=== PATIENT | female | born 1930 | race Caucasian/White ===

== ENCOUNTER 2018-02-15 00:45 | Inpatient (IN) | payer MEDICARE, OTHER ==
[~2018-02-15] VITALS: Ht 157.5 cm; Wt 57.4 kg
[~2018-02-15 00:45] MED LIST: ACETAMIN-CODE12.5 ML PO; ALENDRONATE SOD70 MG PO; CALCIUM CARBON200 MG PO; CALCIUM500 MG PO; CALCIUM600 MG PO; CARVEDILOL6.25 MG PO; CETIRIZINE HCL10 MG PO; CIPRO500 MG PO; CIPROFLOXACIN250 MG PO; CITALOPRAM HBR10 MG PO; CITALOPRAM HBR20 MG NG; CLINDAMYCIN HC300 MG PO; CLOBETASOL PROP15 GM TOP; CLONAZEPAM0.5 MG PO; CLONAZEPAM1 MG PO; COREG3.125 MG NG; COREG3.125 MG PO; CREON DR 12,001 EACH NG; CREON DR 12,001 EACH PO; DIFLUCAN150 MG PO; DOC-Q-LACE50 MG/5 ML NG; FLAGYL500 MG PO; HYDROCODON-ACE1 EA10 PO; IPRAT-ALBUT 0.5-3 ML INH; LEVOTHYROXINE125 MCG NG; LEVOTHYROXINE125 MCG PO; LISINOPRIL2.5 MG PO; LISINOPRIL5 MG PO; LORAZEPAM INT2 MG/ML SL; LORTAB 5-325 M1 EACH PO; MAG-OXIDE400 MG PO; MAPAP500 M1 PO; MECLIZINE HCL25 MG PO; METOPROLOL TART50 MG PO; MIRTAZAPINE15 MG; MIRTAZAPINE15 MG PO; MIRTAZAPINE7.5 MG PO; MOTION SICKNESS25 M2 PO; MULTIVITAMINS1 EAC7 PO; NORCO 5-325 TA1 EACH PO; OMEPRAZOLE NG; OMEPRAZOLE20 MG PO; ONDANSETRON ODT4 MG SL; PHENADOZ12.5 MG PR; PHOS-NAK PACKE1 EACH PO; PROMACTA25 MG NG; PROMETHAZINE HC25 M1 PO; PROMETHAZINE12.5 M1 PO; REGLAN10 MG PO; SIMVASTATIN20 MG PO; TRANSDERM-SCOP1 EA TD; VICODIN 5-3001 EACH PO; VITAMIN D31000 UNI1 PO; VITAMIN D32000 UNIT PO; ZOCOR20 MG NG; ZOFRAN ODT4 MG PO; ZOFRAN4 MG PO
--- NOTE | 2018-02-15 01:54 | NUR ---
RECEIVED PT TO FLOOR VIA STRETCHER. PT APPEARS TO BE DROWSY AT THIS TIME. DAUGHTER AND SON IN LAW AT BEDSIDE. REPORTS NO PAIN AT THIS TIME. ORIENTED TO ROOM. TRANSFERED W/ 5 PPL SLIDE.
--- NOTE | 2018-02-15 04:57 | NUR ---
PT APPEARED TO BE DRY HEAVING WHEN THIS NURSE ENTERED THE ROOM. PT REPORTED FEELING LIKE SHE WAS GOING TO VOMIT. HOB ELEVATED, ZOFRAN GIVEN, EMISIS BAG PROVIDED.
--- NOTE | 2018-02-15 06:04 | NUR ---
bed alarm alerted staff to pt bending over dry heaving. hob was elevated at the time. emisis bag with pt. reglan prn administered. will cont to monitor.
--- NOTE | 2018-02-15 06:24 | NUR ---
PT ARRIVED TO FLOOR AROUND 0200. NAUSEA AND DRY HEAVING ALL NIGHT. ZOFRAN GIVEN AT 0500 AND REGLAN GIVEN AT 0600. ATIVAN GIVEN IN ED AROUNF 0130. PT ADMITTED FOR OBSERVATION. NPO AT THIS TIME. NS INFUSING AT 100ML/HR.
--- NOTE | 2018-02-15 06:35 | NUR ---
PT REPORTS NAUSEOUS FEELING HAS SUBSIDED. HOB ELEVATED. COLD WASH CLOTH ON NECK. CALL LIGHT IN REACH.
--- NOTE | 2018-02-15 08:25 | NUR ---
REPORT RECEIVED FROM HALLE SPARROW, PATIENT IS SITTING UP IN BED WITH DRY HEAVES, NO EMESIS CURRENTLY. SHE HAS NO AVAILABLE NAUSEA MEDICATION AT THIS TIME. MD UPDATED ON CONDITION AND NO URINE OUTPUT FOR THE PAST 4 HOURS.
--- NOTE | 2018-02-15 09:05 | NUR ---
doctor Jorje in the room to see the patient, IV bolus of LR started at this time and patient given 12.5mg of iv phenergan for continued dry heaves. patient still has not voided and has no emesis. stat ct scan ordered and xray notified of order at this time.
--- NOTE | 2018-02-15 09:29 | NUR ---
DOCTOR JASBIR NOTIFIED OF PATIENT'S BLOOD PRESSURE AT THIS TIME.
--- NOTE | 2018-02-15 09:40 | NUR ---
PATIENT TAKEN TO CT SCAN, SHE IS FLAILING IN BED BUT HAS NO C/O ABDOMINAL PAIN ONLY C/O NAUSEA WITH DRY HEAVES. ATIVAN 0.5MG PUSHED IV AT THIS TIME
[2018-02-15] MEDS ORDERED: DORZOLAMIDE HCL10 ML OU (09:44)
[2018-02-15] MEDS ORDERED: ONDANSETRON HCL8 MG PO (09:49)
--- NOTE | 2018-02-15 10:58 | NUR ---
#22 STARTED IN THE LEFT FOREARM
--- NOTE | 2018-02-15 12:11 | NUR ---
new bag of iv fluid hung and running, rate increased to 125mls/hr patient has no urge to void md notified and bladder scan done, 270 mls in the bladder at this time
--- NOTE | 2018-02-15 12:25 | NUR ---
ATTEMPTED TO UPDATE MD ON BRUISING FOUND IN PATIENT'S GROIN AREA, PATIENT WAS INCONTENENT OF URINE, LINEN AND ATTEND CHANGED AT THIS TIME.
--- NOTE | 2018-02-15 12:25 | NUR ---
Nurse Trudy asked me to bladder scan the pt, pt was bladder scanned, residule was reported to nurse. pt was incontinent of urine, RADHA Sanon assisted me with a complete bed change and changed the pt's attends. I noticed some bruising around the pt's groin area and notified nurse. pt is resting safely in bed with call light in reach.
--- NOTE | 2018-02-15 12:57 | NUR ---
messer cathater placed at this time, patient's vaginal area very bruised, swollen and painful with insertion of cathater, Doctor Jorje notified. 300mls of urine out with cathater insertion. Patient asked if she feels safe at home and if she knew how she received the bruising to the vaginal area. patient was not sure but stated maybe last night in the er. She verbalized feeling safe at home and said she lived with her daughter and her son in law.
--- NOTE | 2018-02-15 15:10 | NUR ---
PATIENT UPDATED ON RESULTS FROM CT SCAN AND IV ABX STARTED AT THIS TIME. HOB ELEVATED AND SHE REMAINS NPO AT THIS TIME
--- NOTE | 2018-02-15 15:15 | NUR ---
4MG OF ZOFRAN GIVEN IV AT THIS TIME FOR C/O NAUSEA.
--- NOTE | 2018-02-15 16:22 | NUR ---
PATIENT PUT HERSELF BACK TO BED INSTEAD OF CALLING AFTER HAVING A BM. PATIENT BM WAS LARGE AND FORMED. CHUX CHANGED AND PATIENT MOVED UP IN BED.
--- NOTE | 2018-02-15 18:37 | NUR ---
PATIENT GIVEN 12.5MG OF PHENERGAN AT THIS TIME FOR C/O NAUSEA WITH DRY HEAVES.
--- NOTE | 2018-02-15 19:00 | NUR ---
BEDSIDE REPORT RECEIVED FROM OFFGOING RN. PT RESTING IN BED AWAKE. PT DENIES NEEDS AT THIS TIME. CALL LIGHT WITHIN REACH.
--- NOTE | 2018-02-15 19:20 | NUR ---
PATIENT HAS BEEN SLEEPING ON AND OFF TODAY. FEELING NAUSEA.
--- NOTE | 2018-02-15 20:10 | NUR ---
PT ATTEMPTING GET OUT OF BED. STATES THAT SHE NEEDS TO USE THE BATHROOM. PT ASSISTED TO BSC WITH 2PA. PT HAD SMEAR BM, ASSISTED BACK TO BED. PT REPORTS NAUSEA. EXPERIENCING DRY HEAVES WHILE GETTING UP TO BSC AND ONCE BACK TO BED. PT DENIES PAIN OR SOB. BED ALARM ACTIVATED DUE TO IMPULSITIVITY. PT DENIES NEEDS. PERSONAL BELONGING ARE WITHIN REACH IS CALL LIGHT. CALL LIGHT EDUCATION REINFORCED.
--- NOTE | 2018-02-15 21:01 | NUR ---
MOVED TO ROOM 11 A SAFETY PRECAUTIONS PT IS CONFUSED, HAS TRIED TO GET OUT OF BED 3X. BED ALARM ON. HIGH FALL RISK PRECAUTIONS IN PLACE. PT HAS F/C IN PLACE. UP TO BSC X2 EARLIER WITH 3 PEOPLE ASSIST.
--- NOTE | 2018-02-15 22:29 | NUR ---
MEDICATED WITH ZOFRAN 4MG IV C/O DRY HEAVING. DAUGHTER IN ROOM
--- NOTE | 2018-02-15 22:52 | NUR ---
PT RESTING IN BED WITH DAUGHTER PRESENT AT BEDSIDE. PT ALTERNATES BETWEEN RESTING WITH EYES CLOSED AND DRY HEAVES. PT'S DAUGHTER REQUESTS ANTIEMETIC MEDICATION BE ADMINISTERED. PRN ZOFRAN ADMINISTERED. PT DENIES FURTHER NEEDS AT THIS TIME. CALL LIGHT WITHIN REACH.
--- NOTE | 2018-02-15 23:55 | NUR ---
PT FOUND BY ANOTHER NURSE TO BE PULLING ON HER CATHETER, ATTEMPTING TO GET OUT OF BED. PT STATES THAT SHE WANTED "TO GO TO THE BEDROOM TO SLEEP", POINTS TOWARDS BATHROOM. PT REORIENTED TO SURROUNDINGS. ASSISTED TO REPLACE BLANKETS. PT DENIES OTHER NEEDS. CALL LIGHT WITHIN REACH. ROOM IN VIEW OF NURSES STATION WITH BED ALARM ACTIVATED.
--- NOTE | 2018-02-16 01:40 | NUR ---
PT RESTING IN BED AWAKE, WATCHING TV. PT ASSESSMENT COMPLETE. PT DENIES PAIN, SOB. PT CONTINUES TO REPORT NAUSEA, OCASSIONAL DRY HEAVES/VOMITTING. PT ORIENTED TO SELF ONLY DURING ASSESSMENT. PT DENIES NEEDS AT THIS TIME. CALL LIGHT WITHIN REACH. ROOM WITHIN VIEW OF NURSES STATION WITH CURTAIN OPEN, BED ALARM ACTIVATED.
--- NOTE | 2018-02-16 04:27 | NUR ---
PT RESTING IN BED WITH EYES CLOSED. RESPIRATIONS EVEN AND UNLABORED. PT APPEARS TO BE SLEEPING. CALL LIGHT WITHIN REACH. BED ALARM ACTIVATED, ROOM WITHIN VIEW OF NURSES STATION.
--- NOTE | 2018-02-16 05:11 | NUR ---
PT SLEPT OFF AND ON DURING SHIFT. PT IMPULSIVE, ATTEMPTING TO GET OUT OF BED UNASSISTED EARLY IN SHIFT, PT MOVED CLOSER TO NURSES STATION. NAUSEA, DRY HEAVES, VOMITTING CONTINUE OFF AND ON. ZOFRAN X 1 THIS SHIFT. MENDOZA CATH DRAINING CLEAR YELLOW URINE. NPO. L5 @ 125. 2-3 PA TO BSC.
--- NOTE | 2018-02-16 06:18 | NUR ---
PT SITTING UP IN BED HAVING DRY HEAVES. PRN ZOFRAN TO BE ADMINISTERED.
--- NOTE | 2018-02-16 09:20 | NUR ---
PT AWAKE IN BED. ORIENTED TO SELF ONLY, FOLLOWS COMMANDS APPROPRIATELY. MENDOZA IN PLACE DRAINING WELL. IV INFUSING WNL.
--- NOTE | 2018-02-16 09:35 | NUR ---
PT SITTING UP IN BED DRY HEAVING. MEDICATED WITH REGLAN. GIVEN WARM BLANKET AND PT RESTING WITH EYES CLOSED.
--- NOTE | 2018-02-16 10:10 | NUR ---
PATIENT IS SLEEPING RIGHT NOW.
--- NOTE | 2018-02-16 12:00 | NUR ---
KELLY HSIEH'Jaycob PER ORDERS. PT ASMITA VIERA. ATTENDS IN PLACE
--- NOTE | 2018-02-16 12:10 | NUR ---
PT CONT TO RETCH AND DRY HEAVE FREQUENTLY. MEDICATED WITH IV PHERNERGAN. PT AWAKE IN BED. BED ALARM ON.
--- NOTE | 2018-02-16 13:00 | NUR ---
PT RESTING IN BED, EYES CLOSED, RESP EVEN AND UNLABORED.
--- NOTE | 2018-02-16 16:04 | NUR ---
PT RESTING IN BED, EYES CLOSED, RESP EVEN AND UNLABORED.
--- NOTE | 2018-02-16 17:55 | NUR ---
PT 1PA WITH WALKER TO [facility], VOIDED 250ML. ASSISTED BACK TO BED. PT REFUSING CLEARS, STATES "IT JUST DOESN'T SOUND GOOD." IV FLUIDS INFUSING. BED ALARM ON.
--- NOTE | 2018-02-16 19:00 | NUR ---
BEDSIDE REPORT RECEIVED FROM OFFGOING RN. PT RESTING IN BED, APPEARS TO BE SLEEPING. DOES NOT WAKE WHILE WASTEWATER SUPERVISOR AND OTHER RN IN DOORWAY. CALL LIGHT WITHIN REACH, ROOM WITHIN VIEW OF NURSES STATION.
--- NOTE | 2018-02-16 20:05 | NUR ---
CHARGE NURSE ROUNDING NOTE: IN BED, RESTING, NO S/O PAIN OR SOB. IVF INGUSING, CALL LIGHT AND FLUIDS WITHING HANDS REACH
--- NOTE | 2018-02-16 21:31 | NUR ---
PT'S DAUGHTER, HARRISON, CALLED TO CHECK ON HER MOM. SHE STATES THAT SHE WILL NOT BE IN TO SEE PT THIS EVENING. DISCUSSED PT'S BASELINE ORIENTATION/ MENTATION WITH PT'S DAUGHTER. SHE REPORTS THAT PT IS CONFUSED AT BASELINE, HER "MEMORY IS REALLY BAD." ASKS SAME QUESTIONS FREQUENTLY AT HOME. PT'S DAUGHTER REPORTS THAT THIS HAS BEEN GOING ON FOR APPROXIMATELY 5 YEARS BUT HAS WORSENED IN THE PAST 6 MONTHS TO YEAR.
--- NOTE | 2018-02-16 21:53 | NUR ---
PT ASSESSMENT COMPLETE. PT DENIES PAIN, SOB. PT ALSO DENIES NAUSEA WHEN ASKED. NO DRY HEAVES OR EMESIS DURING ASSESSMENT. PT ALBE TO STATE MONTH AND DAY OF BIRTHDAY, UNABLE TO ACCURATELY STATE YEAR. DISORIENTED TO PLACE, DATE, EVENTS SURROUNDING ADMISSION. PT DENIES NEEDS AT THIS TIME. CALL LIGHT WITHIN REACH. BED ALARM ACTIVATED. ROOM WITHIN VIEW OF NURSES STATION.
--- NOTE | 2018-02-16 23:36 | NUR ---
PT RESTING IN BED WATCHING TV. COBAN WRAP FROM AROUND IV IS UNDONE AND IN BED WITH PT. IV INTACT, REMAINS PATENT. PT DOES NOT RECALL REMOVING DRESSING. COBAN REPLACED. PT DENIES OTHER NEEDS. CALL LIGHT WITHIN REACH. BED ALARM ACTIVATED. ROOM WITHIN VIEW OF NURSES STATION.
--- NOTE | 2018-02-17 01:00 | NUR ---
PT FOUND LYING IN BED, COVERED IN BLOOD. FOUND WITH IV CATHETER PULLED ENTIRELY OUT OF L FOREARM. PT STATES "IT WAS UNCOMFORTABLE." NEW IV SITE PLACED BY RN ENVELOPE PRESS OPERATOR X 3 ATTEMPTS. PT TOLERATED WELL. IV SITE WRAPPED IN COBAN. EDUCATION REINFORCED ON LEAVING IV IN PLACE. PT STATES UNDERSTANDING. ROOM IN VIEW OF NURSES STATION, CURTAIN OPEN, BED ALARM ACTIVATED.
--- NOTE | 2018-02-17 02:09 | NUR ---
PT ASSESSMENT COMPLETE. PT DENIES PAIN, SOB, NAUSEA. PT UP TO USE COMMODE, ONLY ABLE TO VOID SMALL AMOUNT OF URINE. BLADDER SCAN SHOWS 181 ML IN BLADDER. MD TO BE NOTIFIED.
--- NOTE | 2018-02-17 02:50 | NUR ---
IV BOLUS ADMINISTERED ORDERED. PT ASKING "WHAT THE NOISE IS" COMING FROM THE IV PUMP. WHITE NOISE MACHINE INITIATED. MAINTENANCE IV FLUID RATE INCREASED PER ORDER. PT DENIES NEEDS AT THIS TIME. CALL LIGHT WITHIN REACH.
--- NOTE | 2018-02-17 06:00 | NUR ---
PT UP TO USE THE BSC WITH 2 PA. PT FOUND TO HAVE BEEN INCONTINENT OF URINE AND STOOL. MED SIZED SOFT BROWN BM. PT ASSISTED BACK TO BED. LAB IN ROOM TO OBTAIN BLOOD SAMPLE. PT DENIES NEEDS AT THIS TIME. CALL LIGHT WITHIN REACH.
--- NOTE | 2018-02-17 07:44 | NUR ---
ANDREWS QUICK REQUESTED ASSISTANCE TRANSFERRING PATIENT. PATIENT HAD LARGE URINARY INCONTINENCE EPISODE. URINE WAS SWEET SMELLING. RN NOTIFIED. PATIENT VOIDED IN BEDSIDE COMMODE. THIS RADIO MECHANIC AND ANDREWS CREWS TRANSFERRED PATIENT TO BEDSIDE RECLINER. PATIENT SITTING UP IN BEDSIDE RECLINER EATING BREAKFAST, CHAIR ALARM ON. CALL LIGHT IN REACH. NO OTHER NEEDS AT THIS TIME.
--- NOTE | 2018-02-17 08:10 | NUR ---
PT HAD A FEW SIPS OF CLEARS THIS AM. BECAME TEARFUL AND STATED "I'M HUNGRY, I JUST WANT TO EAT SOME REGULAR FOOD." PT BEGAN DRY HEAVING AND THIS RN MEDICATED PT WITH IV ZOFRAN. IV INFUSING WNL. PT ORIENTED TO SELF ONLY. BASELINE MENTATION PER PT DAUGHTER. CHAIR ALARM ON.
--- NOTE | 2018-02-17 09:40 | NUR ---
PATIENT UP IN CHAIR WITH BREAKFAST TRAY. PATIENT VERY TEARFUL. SEEMS CONFUSED BUT AFTER RESTING EVENTUALLY ANSWERS SOME QUESTIONS APPROPRIATELY. STATES SHE LIVES ALONE. HAS TWO STEPS TO HOUSE. NO ANIMALS. DENIES USING WALKER OR CANE. CRIES EASILY, WANTING HER DAUGHTER. LIKELY WILL NEED SNF OR HOME WITH FAMILY MEMBER AT DISCHARGE. PATIENT CRIES WHEN I TRIED EXPLAINING THIS. THINKS SHE HAS BEEN "HERE 10 DAYS AND CAN'T REMEMBER THINGS" AND CRIES.
--- NOTE | 2018-02-17 10:24 | NUR ---
SPOKE WITH PATIENTS DAUGHTER TRELL RETIG BY PHONE [phone]. PATIENT LIVES WITH HER AND HER FAMILY. SHE USES A WALKER AT HOME, HAS A LIFT CHAIR. PATIENT HAS SEVERE MEMORY LOSS. PATIENT SEES DR MALCOLM. I DISCUSSED WITH HER THAT PCP OFFICE HAS CHW WHO CAN HELP HER WITH ANY RESOURCES THEY MAY NEED AT HOME. SHE IS OPEN TO THIS. SHE IS PLANNING PATIENT TO RETURN HOME WITH THEM. SHE STATES PATIENTS ANXIETY OFTEN LEADS TO A CYCLE OF VOMITING. SHE STATES SHE HOPES SHE WON'T HAVE TO GO TO REHAB BECAUSE SHE IS SO FEARFUL OF NEW PLACES.
--- NOTE | 2018-02-17 11:20 | NUR ---
PT HAD CREAM OF CHICKEN SOUP, AND BITES OF APPLESAUCE. ASMITA WELL AT THIS TIME. STATES SHE WOULD STILL LIKE TO TRY SOMETHING MORE SOLID. DR. MARTELL NOTIFIED. DIET ADVANCED.
--- NOTE | 2018-02-17 15:23 | NUR ---
PT SITTING UP IN RECLINER, CHAIR ALARM IN PLACE. PT VISITING WITH DAUGHTER, EATING SOME ICECREAM, ASMITA WELL, NO N/V AT THIS TIME.
--- NOTE | 2018-02-17 18:38 | NUR ---
PT 1PA WITH WALKER TO [facility]. HAD EXTRA SMALL STOOL, INCONTINENT OF URINE. NEW ATTENDS ON. PT ASSISTED BACK TO CHAIR, CHAIR ALARM ON. PT STATES "I WANT SOMETHING TO EAT." ORDERED SOUP.
--- NOTE | 2018-02-17 19:50 | NUR ---
RECEIVED REPORT FROM DAY SHIFT RN. PATIENT IS REQUESTING SOMTHING TO EAT AT THIS TIME. PATIENT PROVIDED WITH TOAST AND SOUP. ALARM IS ON FOR SAFETY. NO FURTHER NEEDS NOTED. CALL LIGHT IN REACH.
--- NOTE | 2018-02-17 21:40 | NUR ---
PATIENT ASSESMENTS COMPLETED. TELEPHOTO INSTALLER'S IN THE ROOM. PATIENT ASSISTED TO THE [facility] [place] CNAS. PATIENT STOOD UP TO MOVE FROM BS TO BED AND BEGAN DRIBBLING. PATIENT SAT DOWN REAL QUICK AND THE C LID PINCHED THE BACK OF BOTH OF HER THIGHS. PATIENT NOW HAS PINCH RAMOS AND WAS BLEEDING A SCANT AMOUNT. WOUNDS CLEANED AND BANDAIDS APPLIED TO BOTH AREAS. PATIENT IS NOW IN BED RESTING. PATIENTS VITALS TAKEN AND RECORDED. BY TELEPHOTO INSTALLER. PATIENTS MEDICATIONS GIVEN PER ORDER. PATIENT PROVIDED WITH SNACK. PATIENT IS CONFUSED. PATIENT REORIENTED. PATIENT HAS BED ALRM IN PLACE. PATIENT EDUCATED MINING MANAGER LIGHT. NO FURTHER NEEDS NOTED. CALL LIGHT IN REACH.
--- NOTE | 2018-02-17 22:41 | NUR ---
ANDREWS ZAVALA AND I CHANGED PATIENT'S ATTENDS SOAKED WITH VOIDINGS. PATIENT IS REPOSITIONED LAYING ON RIGHT SIDE.
--- NOTE | 2018-02-17 23:30 | NUR ---
PATIENT IS RESTING IN BED. PATIENT DENIES ANY NEEDS AT THIS TIME. CALL LIGHT IN REACH. BED ALARM ON FOR SAFETY.
--- NOTE | 2018-02-17 23:31 | NUR ---
PATIENT IS RESTING IN BED WITH EYES CLOSED, RR 17. CALL LIGHT IN REACH.
--- NOTE | 2018-02-18 01:15 | NUR ---
PATIENT IS RESITNG IN BED WITH EYES CLOSED. BREATHING IS EVEN AND UNLABORED, RR 16. CALL LIGHT IN REACH AND BED ALARM IS ON FOR SAFETY.
--- NOTE | 2018-02-18 03:47 | NUR ---
PATIENT PULLED IV OUT. PATIENT IS NOT AN EASY IV START PLACED CALL TO FOUR H CLUB AGENT. FOUR H CLUB AGENT WILL ATTEMPT WHEN SHE IS DONE WITH BREAKS. PATIENT ASSISTED TO THE RESTROOM A 1PA, PIVOT TRANSFER TO THE BSC. PATIENT WAS ABLE TO ELIMINATE. PATIENT IS BACK IN BED RESTING. BED ALARM ON AND CALL LIGHT IN REACH.
--- NOTE | 2018-02-18 04:22 | NUR ---
NEW IV STARTED BY MEDICAL TRANSCRIPTION EDITOR. PATIENT TOLERATED ACTIVITY WELL. IV RECORDED. PATIENT DENIES ANY NEEDS. CALL LIGHT IN REACH AND BED ALARM ON FOR SAFETY. PATIENT REMAINS CONFUSED DESPITE REORIENTATION.
--- NOTE | 2018-02-18 04:52 | NUR ---
PATIENT RESTED WELL FOR THE GREATER PART OF THE SHIFT. MARCELLO IS ON A LOW FIBER DIET, TOLERATING IT WELL, NO COMPLAINTS OF NAUSEA. PATIENT IS A 1PA, PIVBOT TRANSFER TO THE [facility]. CHRISTOPHER HAS POOR VISION. PATIENT IS INCONTINENET AT TIMES. PATIENT RECEIVED A NEW IV. PATIENT IS CONFUSED AND FORGETFUL AT TIMES. PATIENT REQUIRES FREQUENT REORIENTING. PATIENT IS FORGETFUL ABOUT USING CALL LIGHT AT TIMES. BED ALARM IS ON FOR PATIENT SAFETY.
--- NOTE | 2018-02-18 05:46 | NUR ---
PATIENTS VITALS TAKEN AND RECORDED. PATIENTS INTAKE AND OUPUT RECORDED. PATIENTS MORNING MEDICATIONS GIVEN PER ORDER. PATIENT DENIES ANY NEEDS. CALL LIGHT IN REACH AND BED ALARM IS ON FOR PATIENT SAFETY. PATIENT REORIENTED.
--- NOTE | 2018-02-18 07:35 | NUR ---
BEDSIDE HANDOFF REPORT RECEIVED FROM PIE ICER MACHINE RN. PT SAT UP IN BED TO EAT BREAKFAST. BED ALARM IN PLACE. IV INFUSING D5LR AT 65 ML/HR. PT DENIES OTHER NEEDS AT THIS TIME.
--- NOTE | 2018-02-18 08:52 | NUR ---
PT RESTING IN BED. PT ATE BREAKFAST IN CHAIR, TOLERATED WELL, DENIES NAUSEA. PT ON ROOM AIR, LUNG SOUNDS CLEAR AND DIMINISHED THROUGHOUT. PT ORIENTED TO SELF, SEASON AND PLACE, BED ALARM ON. PT INCONTINENT AT TIMES, VOIDING QS. PT IV FLUIDS INFUSING D5LR AT 65 ML/HR TO RIGHT HAND, IV PATENT. PT WITHOUT EDEMA, CMS INTACT. PT TOOK MORNING MEDICATIONS WITHOUT DIFFICULTY. PT DENIES OTHER NEEDS AT THIS TIME.
--- NOTE | 2018-02-18 11:00 | NUR ---
PT INCONTINENT OF STOOL AND URINE, PERICARE PERFORMED. PT COMPLAINT FO FEELING HUNGRY, ASSISTED WITH ORDERING LUNCH. PT SITTING IN CHAIR, CHAIR ALARM ON.
--- NOTE | 2018-02-18 14:50 | NUR ---
PT RESTING IN BED. MD TO BEDSIDE. PLAN FOR DISCHARGE THIS AFTERNOON. DAUGHTER NEEDS TO RUN [place] BEFORE DISCHARGE AND WILL RETURN. PT UNDERSTANDS PLAN, SLIGHT ANXIETY ABOUT DISCHARGE, REASSURED EASILY.
[2018-02-18] MEDS ORDERED: PHENERGAN12.5 MG PR (14:52)
[2018-02-18] MEDS ORDERED: AMOX TR-K CLV1 EAC1 PO (14:53)
[2018-02-18] MEDS ORDERED: ONDANSETRON ODT4 MG SL (14:53)
--- NOTE | 2018-02-18 15:10 | NUR ---
PT RESTING IN BED. LUNG SOUNDS CLEAR AND DIMINISHED, ON ROOM AIR. PT DENIES NAUSEA, BOWEL TONES ACTIVE, TOLERATING LOW FIBER DIET. PT SALINE LOCKED. PT DENIES PAIN. CMS INTACT, WITHOUT EDEMA, PULSES PALPABLE. NO ACUTE CHANGES. PT DENIES NEEDS AT THIS TIME.
== END 2018-02-18 17:35 | disposition home or self-care (01) | DRG 391 ==
LOC: ED 00:45 → MS 00:46
PROVIDERS: ADMIT Internal Medicine
DX: K57.32 Diverticulitis of large intestine without perforation or abscess without bleeding (principal); G93.41 Metabolic encephalopathy; I50.32 Chronic diastolic (congestive) heart failure; R65.10 Systemic inflammatory response syndrome (SIRS) of non-infectious origin without acute organ dysfunction; F03.90 Unspecified dementia, unspecified severity, without behavioral disturbance, psychotic disturbance, mood disturbance, and anxiety; I11.0 Hypertensive heart disease with heart failure; E03.9 Hypothyroidism, unspecified; E78.5 Hyperlipidemia, unspecified; I25.10 Atherosclerotic heart disease of native coronary artery without angina pectoris; K44.9 Diaphragmatic hernia without obstruction or gangrene; Z79.899 Other long term (current) drug therapy; Z66 Do not resuscitate; Z88.1 Allergy status to other antibiotic agents
CPT/HCPCS: 36415; 74177; 80048; 80053; 83735; 85025; 97110; 97116; 97161; J1200; J2060; J2405; J2543; J2550; J2765; J3475; J7030; J7120; Q9967

== ENCOUNTER 2018-08-20 20:04 | Emergency (ER) | payer MEDICARE, OTHER ==
[~2018-08-20] VITALS: Ht 157.5 cm; Wt 54.4 kg
[~2018-08-20 20:04] MED LIST changes: +AMOX TR-K CLV1 EAC1 PO; +DORZOLAMIDE HCL10 ML OU; +ONDANSETRON HCL8 MG PO; +PHENERGAN12.5 MG PR
== END 2018-08-20 22:28 | disposition home or self-care (01) ==
LOC: ED 20:04
DX: N39.0 Urinary tract infection, site not specified (principal); M54.5 Low back pain; I10 Essential (primary) hypertension; Z87.891 Personal history of nicotine dependence; Z88.8 Allergy status to other drugs, medicaments and biological substances; Z79.899 Other long term (current) drug therapy
CPT/HCPCS: 36415; 71046; 72070; 80053; 81001; 83690; 85025; 87077; 87088; 87186; 99283-25

== ENCOUNTER 2019-07-11 12:41 | Emergency (ER) | payer MEDICARE, OTHER ==
[~2019-07-11] VITALS: Ht 157.5 cm; Wt 54.4 kg
--- OUTSIDE RECORDS SUMMARY | ~2019-07-11 | XMS | Clinical Summary ---
Demographics + + + | Address | [address] | | | [place] [address] | + + + | Home Phone | | + + + | Preferred Language | Unknown | + + + | Marital Status | | + + + | Mandaen Affiliation | [id number] | + + + | Race | Unknown | + + + | Ethnic Group | Unknown | + + + Author + + + | Author | [facility] (Historical as of | | | 03-28-19) | + + + | Organization | [facility] (Historical as of | | | 03-28-19) | + + + | Address | Unknown | + + + | Phone | Unavailable | + + + Support + + + + + | Name | Relationship | Address | Phone | + + + + + | Judie Lambert | ECON | [address] | | | | | [place] | | | | | [phone] | | + + + + + Care Team Providers + +------+ + | Care Biostatistics Professor Name | Role | Phone | + +------+ + | Dr. Amira | PP | Unavailable | + +------+ + Allergies + + + + + + | Active Allergy | Reactions | Severity | Noted | Comments | | | | | Date | | + + + + + + | Aspirin | Other (See Comments) | Medium | 06/20/20 | Told not to take | | | | | 11 | by hand surgeon | + + + + + + | Cephalexin | Nausea and Vomiting | Low | 06/20/20 | | | | | | 11 | | + + + + + + | Nitrofurantoin | Nausea and Vomiting | Low | 06/20/20 | | | Monohydrate | | | 11 | | | Macrocrystals | | | | | + + + + + + Current Medications + + +-------+---------+------+------+-------+ | Prescription | Sig. | Disp. | Refills | Star | End | Statu | | | | | | t | Date | s | | | | | | Date | | | + + +-------+---------+------+------+-------+ | simvastatin | Take 20 mg by mouth | | | | | Activ | | (ZOCOR) 20 MG tablet | nightly. | | | | | e | + + +-------+---------+------+------+-------+ | omeprazole | Take 20 mg by mouth | | | | | Activ | | (PRILOSEC) 20 MG | daily. | | | | | e | | capsule | | | | | | | + + +-------+---------+------+------+-------+ | citalopram | Take 10 mg by mouth | | | | | Activ | | (CELEXA) 10 MG | daily. | | | | | e | | tablet | | | | | | | + + +-------+---------+------+------+-------+ | levothyroxine | Take 125 mcg by | | | | | Activ | | (SYNTHROID, | mouth every other | | | | | e | | LEVOTHROID) 125 MCG | day. | | | | | | | tablet | | | | | | | + + +-------+---------+------+------+-------+ | levothyroxine | Take 62.5 mcg by | | | | | Activ | | (SYNTHROID, | mouth every other | | | | | e | | LEVOTHROID) 125 MCG | day. | | | | | | | tablet | | | | | | | + + +-------+---------+------+------+-------+ | Calcium 200 MG | Take 800 mg by mouth | | | | | Activ | | TABS | 2 (two) times | | | | | e | | | daily. | | | | | | + + +-------+---------+------+------+-------+ | metoprolol | Take 50 mg by mouth | | | | | Activ | | (LOPRESSOR) 50 MG | 2 (two) times daily. | | | | | e | | tablet | | | | | | | + + +-------+---------+------+------+-------+ | Ergocalciferol | Take 125 mcg by | | | | | Activ | | (VITAMIN D2 PO) | mouth once a week. | | | | | e | + + +-------+---------+------+------+-------+ | psyllium 0.52 GM | Take 0.52 g by mouth | | | | | Activ | | capsule | daily. | | | | | e | + + +-------+---------+------+------+-------+ Active Problems + + + | Problem | Noted Date | + + + | Elevated troponin level | 06/20/2011 | + + + | Vomiting alone | 06/20/2011 | + + + Social History + +-------+ +--------+------+ | Tobacco Use | Types | Packs/Day | Years | Date | | | | | Used | | + +-------+ +--------+------+ | Never Smoker | | | | | + +-------+ +--------+------+ + +---+---+---+ | Smokeless Tobacco: | | | | | Never Used | | | | + +---+---+---+ + + +---------+ + | Alcohol Use | Drinks/We | oz/Week | Comments | | | ek | | | + + +---------+ + | No | | | | + + +---------+ + + + + | Sex Assigned at | Date Recorded | | | | + + + | Not on file | | + + + Last Filed Vital Signs + + + + | Vital Sign | Reading | Time Taken | + + + + | Blood Pressure | 125/56 | 06/25/2011 11:00 AM PST | + + + + | Pulse | 60 | 06/25/2011 3:28 AM PST | + + + + | Temperature | 37 C (98.6 F) | 06/25/2011 11:00 AM PST | + + + + | Respiratory Rate | 20 | 06/25/2011 11:00 AM PST | + + + + | Oxygen Saturation | 92% | 06/25/2011 1:02 PM PST | + + + + | Inhaled Oxygen | - | - | | Concentration | | | + + + + | Weight | 65.2 kg (143 lb 11.8 | 06/25/2011 3:28 AM PST | | | oz) | | + + + + | Height | 160 cm (5' 3") | 06/20/2011 4:08 PM PST | + + + + | Body Mass Index | 25.46 | 06/25/2011 3:28 AM PST | + + + + Plan of Treatment Not on file Results Not on filefrom Last 3 Months Insurance + +--------+ +------+-------+ + | Payer | Benefi | Subscriber | Type | Phone | Address | | | t Plan | ID | | | | | | / | | | | | | | Group | | | | | + +--------+ +------+-------+ + | [employer] | UNITED | [id number] | | | | | | | | | | | | | HEALTH | | | | | | | CARE - | | | | | | | [employer]ARP | | | | | + +--------+ +------+-------+ + | MEDICARE | MEDICA | [id number] | | | [id number] | | | RE | | | | [place] [phone] | | | IP-OP | | | | | + +--------+ +------+-------+ + + +--------+ +--------+ + + | Guarantor Name | Accoun | Relation to | Date | Phone | Billing Address | | | t Type | Patient | of | | | | | | | | | | + +--------+ +--------+ + + | JUDIE LAMBERT | Person | Self [birth year] Home: | [address] | | | al/Fam | | 1930 | [phone] | [place] | | | [place] | | | [phone] | [phone] | + +--------+ +--------+ + +
--- OUTSIDE RECORDS SUMMARY | ~2019-07-11 | XMS | Clinical Summary ---
Demographics + + + | Address | [address] | | | [place] [address] | + + + | Home Phone | | + + + | Preferred Language | Unknown | + + + | Marital Status | | + + + | Sabianism Affiliation | [phone] | + + + | Race | Unknown | + + + | Ethnic Group | Unknown | + + + Author + + + | Author | [employer] (Historical as of | | | 03-28-19) | + + + | Organization | [facility] (Historical as of | | | 03-28-19) [...] [place] | | | | | [address] | | + + + + + Care Team Providers + +------+ + | Care Rubber Stamp Assembler Name | Role | Phone | + [...] | | | | 11 | by manager technical support | + + + + + + [...] + | [employer] | [place] | [id number] | | | | | | | | | | | | | HEALTH | | | | | | | CARE - | | | | | | | [employer]ARP | | | | | + +--------+ +------+-------+ + | MEDICARE | MEDICA | [id number] | | | [id number] | | | RE | | | | [place] [address] | | | IP-OP | | | [...] | | | [place] | | | [phone] | [phone] | + +--------+ +--------+ + +
--- OUTSIDE RECORDS SUMMARY | ~2019-07-11 | XMS | Encounter Summary ---
Demographics + + + | Address | [address] [place] [address] | | | [place] [address] | + + + | Home Phone | | + + + | Preferred Language | Unknown | + + + | Marital Status | Single | + + + | Sikh Affiliation | NON | + + + | Race | White | + + + | Ethnic Group | Not or | + + + Author + + + | Author | [facility] | + + + | Organization | [facility] | + + + | Address | Unknown | + + + | Phone | Unavailable | + + + Support + + +---------+ + | Name | Relationship | Address | Phone | + + +---------+ + | Bre Amaya | ECON | Unknown | | + + +---------+ + Care Team Providers + +------+ + | Care Hl7 Developer Name | Role | Phone | + +------+ + | Jeb Johnson DO | PCP | | + +------+ + Encounter Details +--------+ + + + + | Date | Type | Department | Care Team | Description | +--------+ + + + + | 03/30/ | Results | Stress | Other, Faculty | | | 2012 | Only | Echocardiography | [phone] | | | | | [address] | | | | | | [place] Mailcode: | | | | | | [id number] Outpatient | | | | | | Clinic Building | | | | | | [place], [place] | | | | | | [address] | | | | | | [phone] | | | +--------+ + + + [...] + + documented as of this encounter Plan of Treatment Not on filedocumented as of this encounter Procedures + +--------+ + + + | Procedure Name | Priori | Date/Time | Associated Diagnosis | Comments | | | ty | | | | + +--------+ + + + | EJECTION FRACTION | Routin | 03/30/2013 | | Results for this | | | e | 8:14 AM | | procedure are in the | | | | PDT | | results section. | + +--------+ + + + documented in this encounter Results EJECTION FRACTION (03/30/2013 8:14 AM PDT) + + + + + + | Component | Value | Ref Range | Performed | Pathologist | | | | | At | Signature | + + + + + + | EJECTION | 30 - 35%Comment: EF | | [facility] | | | FRACTION | Recorded from | | OF | | | | Transthoracic | | CARDIOLOGY | | | | Echocardiogram | | | | + + + + + + | BIPLANE, EF | 27.3 | | [facility] | | | | [...] DEPT OF | [address] | [place], [place] | | | CARDIOLOGY | [address] | [address] | | + + + + + documented in this encounter Visit Diagnoses Not on filedocumented in this encounter"
--- OUTSIDE RECORDS SUMMARY | ~2019-07-11 | XMS | Clinical Summary ---
Demographics + + + | Address | [address] [place] [address] | | | [place] [address] | + + + | Home Phone | | + + + | Preferred Language | Unknown | + + + | Marital Status | Single | + + + | Hoahaoism Affiliation | NON | + + + | Race | White | + + + | Ethnic Group | Not or | + + + Author + + + | Author | [facility] | + + + | Organization | [facility] | + + + | Address | Unknown | + + + | Phone | Unavailable | + + + Support + + +---------+ + | Name | Relationship | Address | Phone | + + +---------+ + | Bre Amaya | ECON | Unknown | | + + +---------+ + Care Team Providers + +------+ + | Care Case Assistant Name | Role | Phone | + +------+ + | Jeb Johnson DO | PCP | | + +------+ + Source Comments CATERINA is fully live on both [facility] and [facility] Allergies + + + + + + | Active Allergy | Reactions | Severity | Noted | Comments | | | | | Date | | + + + + + + | Cephalexin | Nausea | | 03/22/20 | | | | | | 13 | | + + + + + + | Furosemide | Nausea and Vomiting | | 04/01/20 | Implicated in | | | | | 13 | episode of | | | | | | pancreatitis | | | | | | 03/31/2013 | + + + + + + | Nitrofurantoin | Unknown | | 03/22/20 | | | Sodium | | | 13 | | + + + + + + Medications + + + +---------+------+------+-------+ | Medication | Sig | Dispensed | Refills | Star | End | Statu | | | | | | t | Date | s | | | | | | Date | | | + + + +---------+------+------+-------+ | alendronate 70 mg | Take 70 mg by mouth | | 0 | | | Activ | | Oral tablet | every seven days. | | | | | e | + + + +---------+------+------+-------+ | calcium carbonate | Take 800 mg by mouth | | 0 | | | Activ | | chewable 200 mg | two times daily. | | | | | e | | calcium (500 mg) | | | | | | | | Oral tablet, | | | | | | | | chewable | | | | | | | + + + +---------+------+------+-------+ | multivitamin Oral | Take 1 Cap by mouth | | 0 | | | Activ | | capsule | once daily. | | | | | e | + + + +---------+------+------+-------+ | levothyroxine 125 | 1 tablet by Feeding | 90 | 4 | 08/3 | | Activ | | mcg Oral tablet | Tube route once | tablet | | 0/20 | | e | | | daily. | | | 13 | | | + + + +---------+------+------+-------+ | omeprazole 2 mg/mL | Take 10 mL by mouth | 300 mL | 6 | 08/3 | | Activ | | oral suspension | once daily. | | | 0/20 | | e | | (compound) | | | | 13 | | | + + + +---------+------+------+-------+ | carvedilol 3.125 | 1 tablet by Feeding | 30 | 0 | 08/3 | | Activ | | mg Oral tablet | Tube route two times | tablet | | 0/20 | | e | | | daily with meals. | | | 13 | | | | | Administer with | | | | | | | | food. | | | | | | + + + +---------+------+------+-------+ | Cholecalciferol, | Take 1 tablet by | 90 | 4 | 08/3 | | Activ | | Vitamin D3, 2,000 | mouth once daily. | tablet | | 0/20 | | e | | unit Oral tablet | | | | 13 | | | + + + +---------+------+------+-------+ | citalopram 20 mg | 1 tablet by Feeding | 90 | 4 | 08/3 | | Activ | | Oral tablet | Tube route once | tablet | | 0/20 | | e | | | daily. | | | 13 | | | + + + +---------+------+------+-------+ | docusate sodium 50 | 10 mL by Feeding | 480 mL | 3 | 08/3 | | Activ | | mg/5 mL Oral Liquid | Tube route two times | | | 0/20 | | e | | | daily. | | | 13 | | | + + + +---------+------+------+-------+ | lisinopril 5 mg | 1 tablet by Feeding | 30 | 3 | 08/3 | | Activ | | Oral tablet | Tube route once | tablet | | 0/20 | | e | | | daily. | | | 13 | | | + + + +---------+------+------+-------+ | simvastatin 20 mg | 1 tablet by Feeding | 90 | 4 | 08/3 | | Activ | | Oral tablet | Tube route once | tablet | | 0/20 | | e | | | daily in the | | | 13 | | | | | evening. 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 | + + Last Filed Vital Signs + [...] | | + + + + + Plan of Treatment + + + + + | Health Maintenance | Due Date | Last Done | Comments | + + + + + | Pneumococcal | | | | | vaccination (1 of 2 | 6 | | | | - PCV13) | | | | + + + + + | Influenza (Flu) | | | | | vaccination (#1) | 9 | | | + + + + + Results Not on filefrom Last 3 Months Insurance + +--------+ +--------+-------+---------+--------+ | Payer | Benefi | Subscriber | Effect | Phone | Address | Type | | | t Plan | ID | k[place]mir | | | | | | / | | Dates | | | | | | Group | | | | | | + +--------+ +--------+-------+---------+--------+ | [employer] | [employer]GER | xxxxxxxx | Effect | | | Medica | | | [place] | | [place] | | | id | | | [place] | | for | | | | | | | | all | | | | | | | | dates | | | | + +--------+ +--------+-------+---------+--------+ + +--------+ +--------+ + + | Guarantor Name | Accoun | Relation to | Date | Phone | Billing Address | | | t Type | Patient | of | | | | | | | | | | + +--------+ +--------+ + + | Judie Lambert | Person | Self | [birth year] | [address] | | | al/Fam | | 1930 | [phone] | [address] [place], | | | [place] | | | [address] (Home) | [place] [address] | + +--------+ +--------+ + + Advance Directives + + + + + | Code Status | Date | Date | Comments | | | Activated | Inactivated | | + + + + + | Full Code | 03/26/2013 | 04/11/2013 | | | | 6:36 PM | 4:36 PM | | + + + + + + + + +---+ | | | | | + + + +---+ | Full Code | 03/22/2013 | 03/26/2013 | | | | 5:38 PM | 6:36 PM | | + + + +---+
--- OUTSIDE RECORDS SUMMARY | ~2019-07-11 | XMS | Clinical Summary ---
Demographics + + + | Address | [address] [place] [address] | | | [place] [address] | + + + | Home Phone | | + + + | Preferred Language | Unknown | + + + | Marital Status | Single | + + + | Sikhism Affiliation | NON | + + + [...] Team Providers + +------+ + | Care Shaper Setter Name | Role | Phone | + +------+ + | Jeb Johnson DO | PCP | | + +------+ + Source Comments CATERINA is fully live on both [facility] and [facility] InPatient.[facility] Allergies + + + + + + [...] | | | + +--------+ +--------+-------+---------+--------+ | [employer] | [employer] [place] | xxxxxxxx | Effect | | | [...] | | | 0 (Home) | [place] [address] | + +--------+ +--------+ + + Advance [...]
--- OUTSIDE RECORDS SUMMARY | ~2019-07-11 | XMS | Clinical Summary ---
Demographics + + + | Address | [address] | | | [place] [address] | + + + | Home Phone | | + + + | Preferred Language | Unknown | + + + | Marital Status | | + + + | Rastafari Affiliation | [id number] | + + + | Race | Unknown | + + + | Ethnic Group | Unknown | + + + Author + + + | Author | [facility] | | | and [place] | + + + | Organization | [facility] | | | and [place] | + + + | Address | Unknown | + + + | Phone | Unavailable | + + + Support + + +---------+ + | Name | Relationship | Address | Phone | + + +---------+ + | Payton Gallegos | ECON | Unknown | Unavailable | + + +---------+ + Care Team Providers + +------+ + | Care Candles Pourer Name | Role | Phone | + +------+ + PCP | Unavailable | + +------+ + Allergies Not on File Medications Not on file Active Problems Not on file Social History + +-------+ +--------+------+ | Tobacco Use | Types | Packs/Day | Years | Date | | | | | Used | | + +-------+ +--------+------+ | Never Smoker | | | | | + +-------+ +--------+------+ + + + | Sex Assigned at [...] | + + Last Filed Vital Signs Not on file Plan of Treatment + + + + + | Health Maintenance | Due Date | Last Done | Comments | + + + + + | Vaccine: | | | | | Dtap/Tdap/Td (1 - | 0 | | | | Tdap) | | | | + + + + + | Vaccine: Zoster (1 | | | | | of 2) | 1 | | | + + + + + | Vaccine: | | | | | Pneumococcal 65+ (1 | 6 | | | | of 2 - PCV13) | | | | + + + + + | Vaccine: Influenza | | | | | (#1) | 9 | | | + + + + + Results Not on filefrom Last 3 Months"
--- OUTSIDE RECORDS SUMMARY | ~2019-07-11 | XMS | Encounter Summary ---
Demographics + + + | Address | [address] | | | [place] [address] | + + + | Home Phone | | + + + | Preferred Language | Unknown | + + + | Marital Status | | + + + | Voodoo Affiliation | [id number] | + + + | Race | Unknown | + + + | Ethnic Group | Unknown | + + + Author + + + | Author | [facility] | | | and [place] | + + + | Organization | [facility] | | | and [...] Team Providers + +------+ + | Care Electric Brain Wave Equipment Mechanic Name | Role | Phone | + +------+ + PCP | Unavailable | + +------+ + Encounter Details +--------+ + + + + | Date | Type | Department | Care Team | Description | +--------+ + + + + | 06/20/ | Hospital | [facility] | Krys uLjan DO | Elevated troponin; | | 2010 - | Encounter | [facility] | [address] | Vomiting; Nausea; | | | | CARE FLO[address] | [place] [address] | Elevated troponin | | 06/25/ | | [address] | [phone] | level; Dehydration | | 2010 | | [place], [place] | |Dehydration | | | | [address] | | | | | | [phone] | | | +--------+ + + + + Social History + +-------+ +--------+------+ | Tobacco Use | Types | Packs/Day | Years | Date | | | | | Used | | + +-------+ +--------+------+ | Never Assessed | | | | | + +-------+ [...] | US ABDOMEN LIMITED | Routin | 06/23/2011 | | Results for this | | | e | 6:07 PM | | procedure are in the | | | | PST | | results section. | + +--------+ + + + | CV CARDIAC PROCEDURE | Routin | 06/21/2011 | | Results for this | | | e | 3:20 PM | | procedure are in the | | | | PST | | results section. | + +--------+ + + + | ECHO COMPLETE | Routin | 06/21/2011 | | Results for this | | | e | 11:55 AM | | procedure are in the | | | | PST | | results section. | + +--------+ + + + | MRSA NAAT | Timed | 06/21/2011 | | Results for this | | | | 5:53 AM | | procedure are in the | | | | PST | | results section. | + +--------+ + + + | XR ABDOMEN AP | Routin | 06/20/2011 | | Results for this | | | e | 1:56 PM | | procedure are in the | | | | PST | | results section. | + +--------+ + + + | XR CHEST 1 VIEW | Routin | 06/20/2011 | | Results for this | | | e | 11:22 AM | | procedure are in the | | | | PST | | results section. | + +--------+ + + + documented in this encounter Results US Abdomen Limited (06/23/2011 6:07 PM PST) + + | Specimen | + + | | + + + + + | Narrative | Performed At | + + + | LIMITED ABDOMINAL ULTRASOUND 06/23/2011 CLINICAL INFORMATION: | | | Abdominal pain. COMPARISON: None. TECHNIQUE: Multiple | | | real-time scans were performed with school admissions representative static images | | | obtained. FINDINGS: The liver is not enlarged. The echotexture | | | appears unremarkable. The gallbladder wall is thickened and there | | | are multiple gallstones within the gallbladder, as well is extensive | | | sludge, which appears quite thick. The gallbladder appears somewhat | | | distended. Negative Mcclain sign was observed. The common bile duct | | | is at the upper limits of normal in size measuring nearly 9 mm. There | | | is air within the biliary tree and it is unclear as to whether the | | | patient has had prior sphincterotomy. The pancreas in as much as | | | it can be seen is unremarkable. IMPRESSION: The gallbladder is | | | somewhat distended and contains thick sludge, as well as gallstones. | | | The common bile duct is prominent measuring nearly 9 mm without | | | definite stones within the biliary tree. Air was observed within the | | | biliary tree. Electronically signed by Yareli Fofana MD on | | | Jun 23 2011 10:04PM | | + + + + + | Procedure Note | + + | Parveen Miles Conversion - 04/04/2019 11:16 AM PDT LIMITED ABDOMINAL ULTRASOUND 06/23/2011 | | CLINICAL INFORMATION: Abdominal pain. COMPARISON: None. TECHNIQUE: Multiple real-time | | scans were performed with school admissions representative static images obtained. FINDINGS: The liver is | | not enlarged. The echotexture appears unremarkable. The gallbladder wall is thickened | | and there are multiple gallstones within the gallbladder, as well is extensive sludge, | | which appears quite thick. The gallbladder appears somewhat distended. Negative Mcclain | | sign was observed. The common bile duct is at the upper limits of normal in size | | measuring nearly 9 mm. There is air within the biliary tree and it is unclear as to | | whether the patient has had prior sphincterotomy. The pancreas in as much as it can be | | seen is unremarkable. IMPRESSION: The gallbladder is somewhat distended and contains | | thick sludge, as well as gallstones. The common bile duct is prominent measuring nearly | | 9 mm without definite stones within the biliary tree. Air was observed within the | | biliary tree. Electronically signed by Yareli Fofana MD on Jun 23 2011 10:04PM | | | |The pancreas in as much as it can be seen is unremarkable. | | | |IMPRESSION: The gallbladder is somewhat distended and contains thick sludge, as well as gal lstones. The common bile duct is prominent measuring nearly 9 mm without definite stones wit hin the biliary tree. Air was observed within the biliary tree. | | | | Electronically signed by Yareli Fofana MD on Jun 23 2011 10:04PM | + + CV CARDIAC PROCEDURE (06/21/2011 3:20 PM PST) + + | Specimen | + + | | + + + + + | Narrative | Performed At | + + + | | | | | | | PROCEDURES 1. Left heart catheterization with left ventriculogram. | | | 2. Selective coronary angiography. INDICATIONS This is an 81 year | | | old with intractable nausea and vomiting and mildly positive | | | troponin who was referred for coronary angiography and possible | | | coronary intervention. For details regarding her presentation, kindly | | | refer to my consultation note. DESCRIPTION OF PROCEDURE The | | | patient was brought to the catheterization lab in the fasting state. | | | She was prepped and draped in the usual sterile fashion. The right | | | groin was anesthetized with 1% lidocaine. A 6-Jordanian arterial sheath | | | was placed in the right femoral artery, and a 6-Jordanian JL4 catheter | | | was advanced under fluoroscopic guidance and engaged with the ostium | | | of the left main coronary artery, and multiple projections of the | | | left coronary system were done with the use of contrast injections. | | | The catheter was then exchanged for a 6-Jordanian JR4 catheter which was | | | engaged with the ostium of the right coronary artery and multiple | | | projections of the right coronary system were obtained with the use | | | of contrast injections. The catheter was then exchanged for a | | | 6-Jordanian pigtail catheter which was advanced into the left ventricle | | | and projections of left ventricular function were done with the use | | | of contrast injections. FINDINGS HEMODYNAMICS Aortic pressure | | | 169/95 with a mean of 32. Left ventricular pressure 181/18. | | | Gradient: There was no gradient between the LV and aorta. CORONARY | | | ANGIOGRAPHY The coronary system was right dominant. 1. Left main | | | bifurcated into LAD and left circumflex. Left main was free of | | | disease. 2. Left anterior descending artery had no focal lesion; | | | however, in the mid-vessel, there was a bridging myocardial | | | segment. The rest of the LAD was free of disease. 3. Left | | | circumflex coronary artery had a 30% proximal stenosis; however, | | | this is not a flow-limiting lesion as the vessel is large in diameter. | | | 4. Right coronary artery had mild diffuse disease. LEFT | | | VENTRICULOGRAM In the AVILES view showed normally gurpreet left | | | ventricle, with ejection fraction of 70%. ESTIMATED BLOOD LOSS | | | Less than 50 mL. IMPRESSION AND PLAN 1. Two-vessel coronary | | | artery disease, more significantly moderate disease in the large | | | left circumflex. 2. Normal left ventricular systolic function. 3. | | | Recommend medical therapy. Read by HARPREET RIDDLE MD 06/21/2011 | | | 11:00 P | | | PM | | + + + + + | Procedure Note | + + | JdParveen fajardo - 04/04/2019 11:16 AM PDT | | | | PROCEDURES | | 1. Left heart catheterization with left ventriculogram. | | 2. Selective coronary angiography. | | | | INDICATIONS | | This is an 81 year old with intractable nausea and vomiting and mildly | | positive troponin who was referred for coronary angiography and possible | | coronary intervention. For details regarding her presentation, kindly | | refer to my consultation note. | | | | DESCRIPTION OF PROCEDURE | | The patient was brought to the catheterization lab in the fasting state. | | She was prepped and draped in the usual sterile fashion. The right groin | | was anesthetized with 1% lidocaine. A 6-Jordanian arterial sheath was placed | | in the right femoral artery, and a 6-Jordanian JL4 catheter was advanced | | under fluoroscopic guidance and engaged with the ostium of the left main | | coronary artery, and multiple projections of the left coronary system were | | done with the use of contrast injections. The catheter was then exchanged | | for a 6-Jordanian JR4 catheter which was engaged with the ostium of the right | | coronary artery and multiple projections of the right coronary system were | | obtained with the use of contrast injections. The catheter was then | | exchanged for a 6-Jordanian pigtail catheter which was advanced into the left | | ventricle and projections of left ventricular function were done with the | | use of contrast injections. | | | | FINDINGS | | | | HEMODYNAMICS | | Aortic pressure 169/95 with a mean of 32. | | Left ventricular pressure 181/18. | | Gradient: There was no gradient between the LV and aorta. | | | | CORONARY ANGIOGRAPHY | | The coronary system was right dominant. | | 1. Left main bifurcated into LAD and left circumflex. Left main was free | | of disease. | | 2. Left anterior descending artery had no focal lesion; however, in the | | mid-vessel, there was a bridging myocardial segment. The rest of the | | LAD was free of disease. | | 3. Left circumflex coronary artery had a 30% proximal stenosis; however, | | this is not a flow-limiting lesion as the vessel is large in diameter. | | 4. Right coronary artery had mild diffuse disease. | | | | LEFT VENTRICULOGRAM | | In the AVILES view showed normally gurpreet left ventricle, with ejection | | fraction of 70%. | | | | ESTIMATED BLOOD LOSS | | Less than 50 mL. | | | | IMPRESSION AND PLAN | | 1. Two-vessel coronary artery disease, more significantly moderate disease | | in the large left circumflex. | | 2. Normal left ventricular systolic function. | | 3. Recommend medical therapy. | | | | | | Read by HARPREET RIDDLE MD 06/21/2011 11:00 P | | | | | + + ECHO Complete (06/21/2011 11:55 AM PST) + + | Specimen | + + | | + + + + + | Narrative | Performed At | + + + | Patient Name: MYRA LAMBERT Date of : 1930 | | | Performing Physician: Harpreet Riddle MD | | | | | | INDICATIONS Chest pain CONCLUSIONS 1. | | | Overall left ventricular systolic function is normal with, an EF | | | between 55 - 60 %. 2. The aortic valve is mildly calcified. 3. There | | | is mild aortic regurgitation. 4. Mild mitral regurgitation is | | | present. 5. Mild tricuspid regurgitation present. 6. Right | | | ventricular systolic pressure (pulmonary artery systolic pressure) is | | | normal at < 35 mmHg. FINDINGS -------- ECG rhythm: Resting | | | tachycardia (HR>100bpm). Study: A 2-dimensional transthoracic | | | echocardiogram with m-mode, spectral and color flow Doppler was | | | perfomed. Study: This was a technically adequate study. Left | | | Ventricle: Overall left ventricular systolic function is normal with, | | | an EF between 55 - 60 %. Left Ventricle: The left ventricle cavity | | | size is normal. Left Ventricle: Left ventricular wall thickness is | | | normal. Left Ventricle: The diastolic filling pattern indicates | | | impaired relaxation consistent with mild dysfunction (Grade I), which | | | is normal for the patient's age. Right Ventricle: The right ventricle | | | is normal in size. Right Ventricle: The right ventricular systolic | | | function is normal. Left Atrium: The left atrial size is normal Left | | | Atrium: , and the LA measures 3.8cm. Right Atrium: The right atrial | | | size is normal Right Atrium: , and the RA measures 3.9cm. Aortic | | | Valve: Aortic valve is trileaflet and is mildly thickened. Aortic | | | Valve: The aortic valve is mildly calcified. Aortic Valve: There is | | | mild aortic regurgitation. 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 Mitral Valve: Mild mitral regurgitation | | | is present. Mitral Valve: Mild mitral annular calcification present. | | | Tricuspid Valve: The tricuspid valve appears structurally normal. | | | Tricuspid Valve: Mild tricuspid regurgitation present. Tricuspid | | | Valve: Right ventricular systolic pressure (pulmonary artery systolic | | | pressure) is normal at < 35 mmHg. Tricuspid Valve: There is no | | | evidence of pulmonary hypertension. Pulmonic Valve: The pulmonic | | | valve was not well visualized. Pericardium: There is no pericardial | | | effusion. Pericardium: Anterior echo free space present. IVC/Hepatic | | | Veins: The IVC is small (<1.5cm) and collapses with sniff, consistent | | | with central venous pressures of 0-5mmHg. Mass: No mass visualized | | | Thrombus: No clot visualized Thrombus: No vegetation visualized. | | | MEASUREMENTS LA Major: 4.39 cm EDV(Teich): | | | 98.55 ml IVSd: 0.86 cm LVIDd: 4.62 cm LVPWd: 0.94 cm LVOT | | | Diam: 1.89 cm %FS: 29.84 % EF(Teich): 57.02 % ESV(Teich): | | | 42.35 ml IVSs: 1.33 cm LVIDs: 3.24 cm LVPWs: 1.24 cm | | | SV(Teich): 56.20 ml RA Major: 3.85 cm RVIDd: 2.50 cm | | | LAESV(A-L): 27.48 ml LAESV Index (A-L): 15.79 ml/m2 LAAs A2C: | | | 11.82 cm2 LAESV A-L A2C: 28.49 ml LALs A2C: 4.16 cm LAAs | | | A4C: 11.40 cm2 LAESV A-L A4C: 25.07 ml LALs A4C: 4.40 cm | | | Ao Diam: 2.70 cm AV Cusp: 1.57 cm LA Diam: 3.83 cm LA/Ao: | | | 1.41 D-E Excursion: 1.96 cm E-F Concho: 0.14 m/s EPSS: | | | 0.74 cm IVC diameter: 0.90 cm IVC collapse: 0.33 cm IVC % | | | collapse: 61.94 % HR: 98.36 BPM AR maxP.94 mmHg AR | | | meanP.71 mmHg AR Vmax: 4.27 m/s AR Vmean: 3.06 m/s AR | | | VTI: 97.33 cm HR: 100.18 BPM AV maxP.87 mmHg AV | | | meanP.43 mmHg AV Vmax: 1.21 m/s AV Vmean: 0.89 m/s AV | | | VTI: 18.52 cm DEREK Vmax: 2.26 cm2 DEREK (VTI): 2.23 cm2 LVCI | | | Dopp: 2.28 l/minm2 LVCO Dopp: 3.97 l/min HR: 96.03 BPM | | | LVOT maxP.78 mmHg LVOT meanP.52 mmHg LVSI Dopp: | | | 23.79 ml/m2 LVSV Dopp: 41.41 ml LVOT Vmax: 0.97 m/s LVOT | | | Vmean: 0.56 m/s LVOT VTI: 14.69 cm MR maxP.45 mmHg | | | MR meanP.40 mmHg MR Vmax: 6.64 m/s MR Vmean: 5.42 m/s | | | MR VTI: 158.58 cm MV A Idris: 1.08 m/s MV DecT: 77.65 ms | | | MV E Idris: 0.69 m/s MV E/A Ratio: 0.64 Septal e': 0.09 m/s | | | Septal E/e': 7.76 Lateral e': 0.05 m/s Lateral E/e': 13.72 | | | P Vein A: 0.51 m/s P Vein A Dur: 92.42 ms P Vein D: 0.25 | | | m/s P Vein S/D Ratio: 2.55 P Vein S: 0.65 m/s HR: 116.76 | | | BPM PV maxP.27 mmHg PV meanP.41 mmHg PV Vmax: 0.75 | | | m/s PV Vmean: 0.57 m/s PV VTI: 7.93 cm TR maxP.83 | | | mmHg TR Vmax: 2.38 m/s TV A Idris: 0.43 m/s TV Dec Concho: | | | 4.62 m/s2 TV Dec Time: 62.37 ms TV E Idris: 0.28 m/s TV E/A | | | Ratio: 0.66 Drilling Superintendent: CLOVIS Authenticated by: Harpreet Riddle MD | | | Report Date/Time: 06-21-2011 16:41:13 | | + + + + + | Procedure Note | + + | JdParveen fajardo Conversion - 04/04/2019 11:16 AM PDT Patient Name: Gigi LAMBERT of | | : 1930 Physician: Harpreet Riddle | | INDICATIONS C | | hest pain CONCLUSIONS 1. Overall left ventricular systolic function is normal | | with, an EF between 55 - 60 %.2. The aortic valve is mildly calcified.3. There is mild | | aortic regurgitation.4. Mild mitral regurgitation is present.5. Mild tricuspid | | regurgitation present.6. Right ventricular systolic pressure (pulmonary artery systolic | | pressure) is normal at < 35 mmHg. FINDINGS--------ECG rhythm: Resting tachycardia | | (HR>100bpm).Study: A 2-dimensional transthoracic echocardiogram with m-mode, spectral | | and color flow Doppler was perfomed.Study: This was a technically adequate study.Left | | Ventricle: Overall left ventricular systolic function is normal with, an EF between 55 - | | 60 %.Left Ventricle: The left ventricle cavity size is normal.Left Ventricle: Left | | ventricular wall thickness is normal.Left Ventricle: The diastolic filling pattern | | indicates impaired relaxation consistent with mild dysfunction (Grade I), which is | | normal for the patient's age.Right Ventricle: The right ventricle is normal in | | size.Right Ventricle: The right ventricular systolic function is normal.Left Atrium: The | | left atrial size is normalLeft Atrium: , and the LA measures 3.8cm.Right Atrium: The | | right atrial size is normalRight Atrium: , and the RA measures 3.9cm.Aortic Valve: | | Aortic valve is trileaflet and is mildly thickened.Aortic Valve: The aortic valve is | | mildly calcified.Aortic Valve: There is mild aortic regurgitation.Mitral Valve: 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.Mitral Valve: Mild mitral regurgitation | | is present.Mitral Valve: Mild mitral annular calcification present.Tricuspid Valve: The | | tricuspid valve appears structurally normal.Tricuspid Valve: Mild tricuspid | | regurgitation present.Tricuspid Valve: Right ventricular systolic pressure (pulmonary | | artery systolic pressure) is normal at < 35 mmHg.Tricuspid Valve: There is no evidence | | of pulmonary hypertension.Pulmonic Valve: The pulmonic valve was not well | | visualized.Pericardium: There is no pericardial effusion.Pericardium: Anterior echo free | | space present.IVC/Hepatic Veins: The IVC is small (<1.5cm) and collapses with sniff, | | consistent with central venous pressures of 0-5mmHg.Mass: No mass visualizedThrombus: No | | clot visualizedThrombus: No vegetation visualized. MEASUREMENTS LA Major: | | 4.39 cmEDV(Teich): 98.55 mlIVSd: 0.86 cmLVIDd: 4.62 cmLVPWd: 0.94 cmLVOT Diam: | | 1.89 cm%FS: 29.84 %EF(Teich): 57.02 %ESV(Teich): 42.35 mlIVSs: 1.33 cmLVIDs: | | 3.24 cmLVPWs: 1.24 cmSV(Teich): 56.20 mlRA Major: 3.85 cmRVIDd: 2.50 | | cmLAESV(A-L): 27.48 mlLAESV Index (A-L): 15.79 ml/m2LAAs A2C: 11.82 [id number] A-L | | A2C: 28.49 mlLALs A2C: 4.16 cmLAAs A4C: 11.40 [id number] A-L A4C: 25.07 mlLALs | | A4C: 4.40 cmAo Diam: 2.70 cmAV Cusp: 1.57 cmLA Diam: 3.83 cmLA/Ao: 1.41D-E | | Excursion: 1.96 cmE-F Concho: 0.14 m/sEPSS: 0.74 cmIVC diameter: 0.90 cmIVC | | collapse: 0.33 cmIVC % collapse: 61.94 %HR: 98.36 BPMAR maxP.94 mmHgAR | | meanP.71 mmHgAR Vmax: 4.27 m/Ron Vmean: 3.06 m/Ron VTI: 97.33 cmHR: | | 100.18 BPMAV maxP.87 mmHgAV meanP.43 mmHgAV Vmax: 1.21 m/Gillian Vmean: 0.89 | | m/Gillian VTI: 18.52 cmAVA Vmax: 2.26 cm2AVA (VTI): 2.23 [id number] Dopp: 2.28 | | [id number] Dopp: 3.97 l/minHR: 96.03 BPMLVOT maxP.78 mmHgLVOT meanP.52 | | mmHgLVSI Dopp: 23.79 ml/m2LVSV Dopp: 41.41 mlLVOT Vmax: 0.97 m/sLVOT Vmean: 0.56 | | m/sLVOT VTI: 14.69 cmMR maxP.45 mmHgMR meanP.40 mmHgMR Vmax: 6.64 | | m/sMR Vmean: 5.42 m/sMR VTI: 158.58 cmMV A Idris: 1.08 m/sMV DecT: 77.65 msMV E | | Idris: 0.69 m/sMV E/A Ratio: 0.64Septal e': 0.09 m/sSeptal E/e': 7.76Lateral e': | | 0.05 m/sLateral E/e': 13.72P Vein A: 0.51 m/sP Vein A Dur: 92.42 msP Vein D: | | 0.25 m/sP Vein S/D Ratio: 2.55P Vein S: 0.65 m/sHR: 116.76 BPMPV maxP.27 | | mmHgPV meanP.41 mmHgPV Vmax: 0.75 m/sPV Vmean: 0.57 m/sPV VTI: 7.93 cmTR | | maxP.83 mmHgTR Vmax: 2.38 m/sTV A Idris: 0.43 m/sTV Dec Concho: 4.62 m/s2TV | | Dec Time: 62.37 msTV E Idris: 0.28 m/sTV E/A Ratio: 0.66 Drilling Superintendent: | | MIKAuthenticated by: Harpreet Riddle [facility] Date/Time: 06-21-2011 16:41:13 | | | |MEASUREMENTS | | | |LA Major: 4.39 cm | |EDV(Teich): 98.55 ml | |IVSd: 0.86 cm | |LVIDd: 4.62 cm | |LVPWd: 0.94 cm | |LVOT Diam: 1.89 cm | |%FS: 29.84 % | |EF(Teich): 57.02 % | |ESV(Teich): 42.35 ml | |IVSs: 1.33 cm | |LVIDs: 3.24 cm | |LVPWs: 1.24 cm | |SV(Teich): 56.20 ml | |RA Major: 3.85 cm | |RVIDd: 2.50 cm | |LAESV(A-L): 27.48 ml | |LAESV Index (A-L): 15.79 ml/m2 | |LAAs A2C: 11.82 cm2 | |LAESV A-L A2C: 28.49 ml | |LALs A2C: 4.16 cm | |LAAs A4C: 11.40 cm2 | |LAESV A-L A4C: 25.07 ml | |LALs A4C: 4.40 cm | |Ao Diam: 2.70 cm | |AV Cusp: 1.57 cm | |LA Diam: 3.83 cm | |LA/Ao: 1.41 | |D-E Excursion: 1.96 cm | |E-F Concho: 0.14 m/s | |EPSS: 0.74 cm | |IVC diameter: 0.90 cm | |IVC collapse: 0.33 cm | |IVC % collapse: 61.94 % | |HR: 98.36 BPM | |AR maxP.94 mmHg | |AR meanP.71 mmHg | |AR Vmax: 4.27 m/s | |AR Vmean: 3.06 m/s | |AR VTI: 97.33 cm | |HR: 100.18 BPM | |AV maxP.87 mmHg | |AV meanP.43 mmHg | |AV Vmax: 1.21 m/s | |AV Vmean: 0.89 m/s | |AV VTI: 18.52 cm | |DEREK Vmax: 2.26 cm2 | |DEREK (VTI): 2.23 cm2 | |LVCI Dopp: 2.28 l/minm2 | |LVCO Dopp: 3.97 l/min | |HR: 96.03 BPM | |LVOT maxP.78 mmHg | |LVOT meanP.52 mmHg | |LVSI Dopp: 23.79 ml/m2 | |LVSV Dopp: 41.41 ml | |LVOT Vmax: 0.97 m/s | |LVOT Vmean: 0.56 m/s | |LVOT VTI: 14.69 cm | |MR maxP.45 mmHg | |MR meanP.40 mmHg | |MR Vmax: 6.64 m/s | |MR Vmean: 5.42 m/s | |MR VTI: 158.58 cm | |MV A Idris: 1.08 m/s | |MV DecT: 77.65 ms | |MV E Idris: 0.69 m/s | |MV E/A Ratio: 0.64 | |Septal e': 0.09 m/s | |Septal E/e': 7.76 | |Lateral e': 0.05 m/s | |Lateral E/e': 13.72 | |P Vein A: 0.51 m/s | |P Vein A Dur: 92.42 ms | |P Vein D: 0.25 m/s | |P Vein S/D Ratio: 2.55 | |P Vein S: 0.65 m/s | |HR: 116.76 BPM | |PV maxP.27 mmHg | |PV meanP.41 mmHg | |PV Vmax: 0.75 m/s | |PV Vmean: 0.57 m/s | |PV VTI: 7.93 cm | |TR maxP.83 mmHg | |TR Vmax: 2.38 m/s | |TV A Idris: 0.43 m/s | |TV Dec Concho: 4.62 m/s2 | |TV Dec Time: 62.37 ms | |TV E Idris: 0.28 m/s | |TV E/A Ratio: 0.66 | | | |Drilling Superintendent: CLOVIS | |Authenticated by: Harpreet Riddle MD | |Report Date/Time: 06-21-2011 16:41:13 | + + MRSA NAAT (06/21/2011 5:53 AM PST) + + | Specimen | + + | | + + + + + | Narrative | Performed At | + + + | [facility]) | EXTERNAL LAB | | Testing performed at [facility];[address];[place] [address] MRSA PCR | | | NEGATIVE Testing performed at | | | [facility];[address];[place] [address] | | + + + + +---------+ + + | Performing | Address | City/State/Zipcode | Phone Number | | Organization | | | | + +---------+ + + | EXTERNAL LAB | | | | + +---------+ + + XR Abdomen AP (06/20/2011 1:56 PM PST) + + | Specimen | + + | | + + + + + | Narrative | Performed At | + + + | MYRA BROWN ABDOMEN 1 VIEW 06/20/2011 1:50 PM HISTORY: 81 | | | years. Female. Vomiting TECHNIQUE: A single supine view of | | | the abdomen is obtained. COMPARISON: None. FINDINGS: | | | Angulation lumbar axis to the left at L1-2, 23 degrees. Right hip | | | arthroplasty. Unremarkable bowel gas pattern. The outlines | | | of the abdominal organs and psoas muscles are normal. No | | | suspicious pathologic calcifications identified. No significant | | | skeletal abnormality identified in abdomen or pelvis. IMPRESSION: | | | 1. No acute findings in the abdomen. 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 Right hip arthroplasty Electronically | | | signed by Jean Pierre Negron MD on 06/20/2011 10:17 PM | | + + + + + | Procedure Note | + + | Jd, Rad Conversion - 04/04/2019 11:16 AM PDT MYRA LAMBERT | | XR ABDOMEN 1 VIEW | | 06/20/2011 1:50 PM | | | | HISTORY: | | 81 years. Female. Vomiting | | | | TECHNIQUE: | | A single supine view of the abdomen is obtained. | | | | COMPARISON: | | None. | | | | FINDINGS: Angulation lumbar axis to the left at L1-2, 23 degrees. Right hip | | arthroplasty. | | | | Unremarkable bowel gas pattern. | | The outlines of the abdominal organs and psoas muscles are normal. No | | suspicious pathologic calcifications identified. No significant skeletal | | abnormality identified in abdomen or pelvis. | | | | IMPRESSION: | | 1. No acute findings in the abdomen. Fairly advanced degenerative | | changes in the lumbar axis. Right hip arthroplasty | | | | | + + XR Chest 1 Vw (06/20/2011 11:22 AM PST) + + | Specimen | + + | | + + + + + | Narrative | Performed At | + + + | MY[facility] LAMBERT XR CHEST 1 VIEW 06/20/2011 11:10 AM HISTORY: 81 | | | years. Female. Chest pain TECHNIQUE: AP portable view of the | | | chest 1117 hrs COMPARISON: None FINDINGS: Increased density | | | in the left retrocardiac region left base suggesting some atelectasis | | | the remainder of the lung zones appear hyperinflated and free of | | | segmental infiltrate. No significant pleural effusion. No | | | pneumothorax. No obvious hilar or mediastinal adenopathy. Mild | | | irregularity of the neck of the right humerus of a cortical | | | disruption/fracture is not evident. IMPRESSION: 1. Left basilar | | | atelectasis. 2. Other chronic findings as described above. | | | | | + + + + + | Procedure Note | + + | Jd, Rad Conversion - 04/04/2019 11:16 AM PDT MY[facility] LAMBERT | | XR CHEST 1 VIEW | | 06/20/2011 11:10 AM | | | | HISTORY: | | 81 years. Female. Chest pain | | | | TECHNIQUE: | | AP portable view of the chest 1117 hrs | | | | COMPARISON: | | None | | | | FINDINGS: | | Increased density in the left retrocardiac region left base suggesting some | | atelectasis the remainder of the lung zones appear hyperinflated and free | | of segmental infiltrate. No significant pleural effusion. No | | pneumothorax. No obvious hilar or mediastinal adenopathy. Mild | | irregularity of the neck of the right humerus of a cortical | | disruption/fracture is not evident. | | | | IMPRESSION: | | 1. Left basilar atelectasis. | | 2. Other chronic findings as described above. | | | | | + + documented in this encounter Visit Diagnoses + + | Diagnosis | + + | Elevated troponin Other abnormal blood chemistry | + + | Vomiting Vomiting alone | + + | Nausea Nausea alone | + + | Elevated troponin level Other abnormal blood chemistry | + + | Dehydration | + + documented in this encounter"
--- OUTSIDE RECORDS SUMMARY | ~2019-07-11 | XMS | Encounter Summary ---
Demographics + + + | Address | [address] [place] [address] | | | [place] [address] | + + + | Home Phone | | + + + | Preferred Language | Unknown | + + + | Marital Status | Single | + + + | Gnosticist Affiliation | NON | + + + | Race | White | + + + | Ethnic Group | Not or | + + + Author + + + | Author | [facility] | + + + | Organization | [facility] | + + + | Address | Unknown | + + + | Phone | Unavailable | + + + Support + + +---------+ + | Name | Relationship | Address | Phone | + + +---------+ + | Bre Amaya | ECON | Unknown | | + + +---------+ + Care Team Providers + +------+ + | Care Reliability Technician Name | Role | Phone | + [...] Closed | | Cardiology | Procedures | Godfrey | Car Echo | | | | | | Katy Mitchell, | [address] | | | | | TRANSTHORACI | PA-C [address] | [address] | | | | | C | [address] | [address] | | | | | ECHOCARDIOGR | [address] | Mailcode: | | | | | [address] | Joseph | [id number] | | | | | | [place] | [address] | | | | | | [address] | Building | | | | | | Phone: | [place], [place] | | | | | | [phone] | [address] | | | | | | Fax: | Phone: | | | | | | [phone] | [phone] | +--------+--------+ + + + + Diagnostic [...] CONTRAST | [address] | [address] | | | | | | [address] | Mailcode: | | | | | | [place], [place] | [address] [facility] | | | | | | [address] | [facility] | | | | | | | [place], [place] | | | | | | | [address] | | | | | | | Phone: | | | | | | | [phone] | | | | | | | Fax: | | | | | | | [phone] | +--------+--------+ + + + + Diagnostic Testing (Routine) +--------+--------+ + + + + | Status | Reason | Specialty | Diagnoses / | Referred By | Referred To | | | | | Procedures | Contact | Contact | +--------+--------+ + + + + | Closed | | Radiology | Procedures | Pradeep, | Rad Ct Scan | | | | | CT ABDOMEN | Sharmaine Robert MD | [facility] [address] | | | | | & PELVIS W | [address] | [address] | | | | | IV CONTRAST | [address] | [address] | | | | | | Rd | Mailcode: | | | | | | [place], [place] | [address] [facility] | | | | | | [address] [facility] | | | | | | Phone: | [place], [place] | | | | | | [phone] | [address] | | | | | | Fax: | Phone: | | | | | | [phone] | [phone] | | | | | | | Fax: | | | | | | | [phone] | +--------+--------+ + + + + Reason [...] [address] | MD [address] [facility] | | | | | [place], [place] | [address] | | | 04/11/ | | [address] | [place], [place] | | | 2012 | | [phone] | [address] | | | | | | [phone] | | | | | | | | | | | | Gallo Dubon MD | | | | | | [address] | | | | | | [address] [place], | | | | | | [place] [address] | | | | | | [phone] | | | | | | | [...] might be different fr om the original. [facility] DEPARTMENT OF SURGERY EMERGENCY GENERAL SURGERY Division of Trauma and Critical Care INPATIENT PROVIDER DISCHARGE SUMMARY Note Date: 04/10/2013 Admission Date: 03/22/2013 JUDIE LAMBERT, Discharge Date: 11 Apr 2013 PCP: Jeb Johnson DO Attending Physician: aGllo Dubon MD Author: JULISSA CORTES MD Hospital Course: Judie Labmert is an 83 y/o female who presented to the ED in [facility] on 03/21 with abdomin al pain with known prior history of diverticulosis. She was found to have a LLQ mass and WBC count of 17,000. CT demonstrated reji diverticular abscess. She was started on meropenem, L evaquin and flagyl, and receive 7 liters fluid resuscitation. She was also noted with UA + > 100,000 Lactose family consumer scientist. She decompensated requiring levophed for blood pressure thus she was transferred to [facility] for higher level of care for septic [...] failure with no prior his tory of [place] or heart failure. Echo demonstrated EF 30-35%. [...] for Stopping: omeprazole 20 mg Oral capsule,delayed release(/EC) Comments: Reason for Stopping: Follow-up: Please call to setup an appointment within 1 week Please ask primary care physician for a referral to a local bioassayist for treatment of n ewly-diagnosed congestive heart failure. Jeb [address] [address] Discharging Provider: JULISSA CORTES MD Attending Physician: [...] + documented as of this encounter Progress Notes Matthew Levy MD - 04/11/2013 5:57 AM PDTFormatting of this note might be different fr om the original. [facility] DEPARTMENT OF SURGERY EMERGENCY GENERAL SURGERY Division of Trauma and Critical Care Attending Physician: Gallo Dubon MD Progress Note Note Date: 04/11/2013 Admission Date: 03/22/2013 JUDIE LAMBERT, Hospital Day #20 HPI: 83 y.o. y/o [...] other applicable data points. Please refer to [facility] for this information . PHYSICAL EXAM: LAST [...] hx of Abx, [place] [phone] pager number [facility] [address] [facility] [phone] Christiano Darden MD - 0 04/10/2013 7:46 AM PDT [facility] DEPARTMENT OF SURGERY EMERGENCY GENERAL SURGERY Division [...] other applicable data points. Please refer to [facility] for this information . PHYSICAL EXAM: LAST [...] Cortes MD General Surgery Resident, PGY1 Pager [phone] [facility] [address] [facility] [address] Julissa Amato MD - 04/09/2013 7:42 AM PDT [facility] DEPARTMENT OF SURGERY EMERGENCY [...] other applicable data points. Please refer to [facility] for this information . PHYSICAL EXAM: [...] Cortes MD General Surgery Resident, PGY1 Pager [phone] [facility] [address] [place] [facility] [place] [address] oops, Julissa Lam MD - 0 04/08/2013 9:24 AM PDT [facility] DEPARTMENT OF SURGERY EMERGENCY GENERAL SURGERY Division of Trauma and Critical Care Attending Physician: Gallo Dubon MD Progress Note Note Date: 04/08/2013 Admission Date: 03/22/2013 JUDIE LAMBERT, [id number] Hospital Day #17 INTERVAL EVENTS/SUBJECTIVE Continues on [...] Cortes MD General Surgery Resident, PGY1 Pager [phone] Carolynn Driver - 013 3:28 PM PDTChaplain Note: Asked by RN to check in on pt since she is having a hard time being here for so long and so far away. She really didn't want to interact with me today, s he might be tired. She has no particular spiritual identification. Wrapper Dipper will stop in f or friendly visit later and see if she is interested. [employer] Clerkgregory Kinsey M.Div., [facility] [phone] Pager #[phone] On-call pager #[phone] Julissa Amato MD - 6:00 AM PDT [facility] DEPARTMENT OF SURGERY EMERGENCY GENERAL SURGERY Division of Trauma and Critical Care Attending Physician: Gallo Dubon MD Progress Note Note Date: 04/06/2013 Admission Date: 03/22/2013 JUDIE LAMBERT, Hospital Day #15 ID: Judie Lambert is an 83 y/o lady who present to the ED in [facility] on 03/21 with abdomin al pain with known prior history of diverticulosis. She was found to have a LLQ mass and WB C count of 17,000. CT demonstrated reji diverticular abscess. She was started on meropenem , Levaquin and flagyl, and receive 7 liters fluid resuscitation. She was also noted with UA + >100,000 Lactose family consumer scientist. She decompensated requiring levophed for blood pressure thus she was transferred to [facility] for higher level of care for septic [...] failure with no prior hi story of [place] or heart failure. Echo demonstrated EF 30-35%. [...] other applicable data points. Please refer to [facility] for this information . PHYSICAL EXAM: [...] Abx, [place] [phone] pager number [facility] [address] [place] [facility] [place] [address] randon Leary MD - 0 04/06/2013 9:44 AM PDT Gastroenterology Follow-Up Note Date: 04/06/2013 IMPRESSION/PLAN: Ms. Lambert is a 83 year-old woman with a history of CAD, CHF, COPD, and diverticulosis who pr esented with abdominal pain to an outside hospital and found to have a diverticular abscess with development of septic shock requiring transfer to [facility], now s/p IR-guided pelvic drain placement with [...] questions. Brandon Leary MD Fellow, Gastroenterology Pager: [phone] INTERVAL HISTORY: Ms. Lambert reports feeling well [...] 72 hours (or 3 results) Recent Labs 04/04/13 0348 04/05/13 0336 04/06/13 0436 WBC 9.33 7.67 8.82 HB 10.8* 11.7* 12.0 HCT 34.9* 36.5 37.1 PLT 390 406* 427* Chemistries: Last 72 Hours (or 3 results): Recent Labs 04/04/13 0348 04/05/13 0336 04/06/13 0436 NA 136 | 136 [...] 2. Small bilateral effusions with adjacent atelectasis. lemente Ocampo Jasiel, N P - 04/06/2013 8:51 AM PDT [facility] DEPARTMENT OF SURGERY EMERGENCY GENERAL SURGERY Division of Trauma and Critical Care Attending Physician: Gallo Dubon MD Progress Note Note Date: 04/06/2013 Admission Date: 03/22/2013 JUDIE LAMBERT, Hospital Day #15 On 03/22/13, Judie Lambert is an 83 y/o lady who present to the ED in [facility] on 03/21 with abdominal pain with known prior history of diverticulosis. She was found to have a LLQ mass and WBC count of 17,000. CT demonstrated reji diverticular abscess. She was started on namrata penem, Levaquin and flagyl, and receive 7 liters fluid resuscitation. She was also noted wit h UA + >100,000 Lactose family consumer scientist. She decompensated requiring levophed for blood pressure t hus she was transferred to [facility] ICU for higher level of care for [...] She progressed and was transferred to the [facility] on 03/24/13 in stable c ondition. 03/25/13 [...] failure with no prior his tory of [place] or heart failure. Echo demonstrated EF 30-35%. [...] other applicable data points. Please refer to [facility] for this information . PHYSICAL EXAM: [...] Abx, [place] [phone] pager number [facility] [address] [facility] [address] randon Leary M D - 04/05/2013 1:42 PM PDT Gastroenterology Follow-Up Note Date: 04/05/2013 IMPRESSION/PLAN: Ms. Lambert is a 83 year-old woman with a history of CAD, CHF, COPD, and diverticulosis who pr esented with abdominal pain to an outside hospital and found to have a diverticular abscess with development of septic shock requiring transfer to [facility], now s/p IR-guided pelvic drain placement with [...] Workman. Brandon Leary MD Fellow, Gastroenterology Pager: [phone] INTERVAL HISTORY: Ms. Lambert reports feeling well [...] (or 3 results) Recent Labs 04/03/13 0350 04/04/138 04/05/13 0336 WBC 8.82 9.33 7.67 HB 10.0* 10.8* 11.7* HCT 32.1* 34.9* 36.5 PLT 354 390 406* Chemistries: Last 72 Hours (or 3 results): Recent Labs 04/03/13 0350 04/04/1334704/05/13 0336 NA 137 | 137 136 | [...] outlined in the note. SANDOVAL WILLARD MD oopsJulissa MD - 04/05/2013 8:12 AM PDT [facility] DEPARTMENT OF SURGERY EMERGENCY GENERAL SURGERY Division [...] other applicable data points. Please refer to [facility] for this information . PHYSICAL EXAM: LAST [...] Cortes MD General Surgery Resident, PGY1 Pager [phone] [facility] [place] [facility] [place] [address] Julissa Amato MD - 04/04/2013 11:[address] [facility] DEPARTMENT OF SURGERY EMERGENCY GENERAL SURGERY Division [...] other applicable data points. Please refer to [facility] for this information . PHYSICAL EXAM: [...] Cortes MD General Surgery Resident, PGY1 Pager [phone] [facility] [address] [place] [facility] [place] [address] Lee Estes M D - 04/04/2013 9:54 [...] tablet 1 mg 1 mg Oral BID ( and 17) carvedilol (COREG) tablet 3.125 mg [...] Bustillo MD - 04/03/2013 7:26 AM PDT [facility] DEPARTMENT OF SURGERY EMERGENCY GENERAL SURGERY Division [...] other applicable data points. Please refer to [facility] for this information . PHYSICAL EXAM: [...] chacha Yogurt: ABX on Probiotics: [place] [phone] pager number [facility] [address] [place] [facility] [place] [address] Jose Tiwari MD - 04/02/2013 9:29 AM PDTI was present and rounded with the CHEMICAL ENGINEERING PROFESSOR today. I interviewed and exam ined the patient. I reviewed the history, as documented today. I agree with the CHEMICAL ENGINEERING PROFESSOR's asses sment and plan. Safe to transfer. [...] M D - 04/02/2013 5:09 AM PDT [facility] DEPARTMENT OF SURGERY EMERGENCY GENERAL SURGERY [...] other applicable data points. Please refer to [facility] for this information . Lab Results Component [...] to regular [place] [phone] [facility] [place] [facility] [place] [facility] Gregory Granado MD - 04/01/2013 11:20 AM PDTICU Attending: I saw and examined Judie Lambert ([id number]) with Claire Donahue PA-C on 04/01/13 and [...] documented by kirby MOTTA. Gregory Young MD Facilities Specialist Trauma, Critical Care, Acute Care Surgery amKaty cai P A-C - 04/01/2013 11:20 AM PDT [...] diuretics in the morning. Jacoby An MD Hooker Operator Pager [phone] Meredtih Villareal MD - 04/01/2013 4:07 AM PDTI saw and evaluated the patient. I agree with the findings and the plan of care as documented in the resident s note. MEREDITH STEVEN MD Katrin Caal M D - 04/01/2013 4:07 AM PDT [facility] DEPARTMENT OF SURGERY EMERGENCY GENERAL SURGERY [...] other applicable data points. Please refer to [facility] for this information . Lab Results Component [...] continue ICU [place] [phone] [facility] [address] [place] [facility] [place] [address] Gavi Cortes PA-C - 04/01/2013 12:00 AM [...] Attending: I saw and examined Judie Lambert ([id number]) with Claire Donahue PA-C on 03/31/13 and [...] of time documented by Jai Young MD Facilities Specialist Trauma, Critical Care, Acute Care Surgery Meredith Villareal MD - 03/31/2013 2:27 AM PDT [facility] DEPARTMENT OF SURGERY EMERGENCY GENERAL SURGERY Division [...] other applicable data points. Please refer to [facility] for this information . Lab Results Component [...] continue ICU [place] [phone] [facility] [address] [facility] [place] [facility] I saw and evaluated the [...] pos t-ligament of treitz. MEREDITH STEVEN MD Cleveland Dowling PA-C - 03/30/2013 3:55 PM PDT . [...] with questions or concerns. CLEVELAND ORTIZ PA-C [id number] Russ Fournier - 03/30/2013 10:53 AM PDTTransthoracic echocardiogram completed. [...] TPN, will discuss volumes and lytes with director of photography 9. Hyperglycemia controlled with insulin in TPN [...] Spears MD - 03/30/2013 2:04 AM PDT [facility] DEPARTMENT OF SURGERY EMERGENCY GENERAL SURGERY Division [...] other applicable data points. Please refer to [facility] for this information . Lab Results [...] continue ICU [place] [phone] [facility] [address] [place] [facility] [place] [address] sac Paredes MD - 03/29/2013 3:18 PM [...] gui BUSCH NGT Dispo: continue ICU care Discussed with Dr. Paredes on SICU rounds. LETTY FRIEND MD General Surgery, R2 Pager [phone] SICU Resident Pager [phone] I was present with the resident during the history and exam. I discussed the case with the resident and agree with the findings and plan as documented in the resident s note. ISAC PAREDES MD [facility] [id number] [phone] Sharmaine Spears MD - 03/29/2013 6:26 AM [...] infusion, 250 mL, Intravenous, Q --, Lara Urbina MD, Last Rate: 9.5 mL/hr at 03/28/131951, [...] Cultures: No new cultures LABS: Reviewed in [facility] Dr. Dubon is the attending of record for this patient encounter. SHARMAINE HUNTER MD Surgery Resident, R2 Diagnoses: [id number] Intestinal diverticular abscess Gregory Granado MD - 10:46 AM PDTICU Attending: I saw and examined Judie Lambert ([id number]) with the residents on 03/28/13 and agree [...] monitoring of respiratory status. Gregory Young MD Facilities Specialist Trauma, Critical Care, Acute Care Surgery lemente Andrew MD - 03/28/2013 10:46 AM PDT Trauma [...] Robert MD - 03/28/2013 3:32 AM PDT [facility] DEPARTMENT OF SURGERY EMERGENCY GENERAL SURGERY Division [...] other applicable data points. Please refer to [facility] for this information . PHYSICAL EXAM: [...] Cultures pending. KATRIN YEUNG MD General Surgery [address] [facility] [address] [place] [facility] [place] [facility] Sharmaine Spears MD - 0 [...] 25 mg, 25 mg, Oral, BID, Clemente Ocampo NP, 25 mg at 03/26/132049 omeprazole (PRILOSEC) capsule 20 mg, 20 mg, Oral, DAILY, Santana Doe MD, 20 mg at 03/12 12/22 153 ondansetron (aka ZOFRAN) injection 4 mg, 4 mg, Intravenous, Q12H PRN, Gavi Matos PA-C, 4 mg at 03/26/13 2334 piperacillin-tazobactam (ZOSYN) IV 3.375 g, 3.375 g, Intravenous, Q8H, Joi Andre MD, 3.375 g at 03/26/13 2332 potassium & sodium phosphates (NEUTRA-PHOS, PHOS-NAK) 280-160-250 mg packet 1 Packet, 1 Pac ket, Oral, BID, Joi Andre MD, 1 Packet at 03/26/132049 prochlorperazine (COMPAZINE) injection 2.5-5 mg, 2.5-5 mg, Intravenous, Q4H PRN, Clemente Ocampo NP, 5 mg at 03/26/13 154 promethazine (PHENERGAN) injection 12.5 mg, 12.5 mg, [...] SHARMAINE HUNTER MD Surgery Resident, R2 Diagnoses: [id number] Intestinal diverticular abscess Sharmaine Spears MD - 6:36 PM PDTCalled to patient room by R1. line service technician noted that patient desaturated t o [...] Dr. Dubon evaluated patient and recommended tr ansfer to the ICU for higher level of care and close monitoring. CXR continued with RML consolidation. Abx were changed from Ancef to Zosyn with Vanc added to cover MRSA PNA. After discussion with ICU resident (Dr. Gil) patient was transferred to the ICU in poor but stable condition. Sharmaine Hunter MD R2 Emergency General Surgery allo Dubon MD - 03/26/2013 7:18 AM PDT [facility] DEPARTMENT OF SURGERY EMERGENCY GENERAL SURGERY Division [...] other applicable data points. Please refer to [facility] for this information . PHYSICAL EXAM: LAST [...] ABX on Probiotics: Lactobacillus JOI ANDRE MD [facility] [address] [place] [facility] [place] [address] STAFF: I personally interviewed the patient, performed [...] denies cardiac issues but hx significant for [place] and AAA. Neuro: Oriented to person and [...] acute changes noted Nathen Horne MD, EM [id number] signed by Nathen Horne MD at 03/25/2013 10:11 PM PDTK Joi santana MD - 03/25/2013 8:17 AM PDTFormatting of this note might be different f rom the original. [facility] DEPARTMENT OF SURGERY EMERGENCY GENERAL SURGERY [...] other applicable data points. Please refer to [facility] for this information . PHYSICAL EXAM: LAST [...] ABX on Probiotics: Lactobacillus JOI ANDRE MD [facility] [address] [place] [address] Cleveland Dowling PA-C - 03/24/2013 12:05 PM [...] with questions or concerns. CLEVELAND ORTIZ PA-C [id number] Liliana Tirado MD - 03/24/2013 8:46 AM [...] expiratory wheezing, good saturations. LILIANA FERNANDEZ MD [id number] Clemente Guillen MD - 03/24/2013 8:46 AM [...] hours Access: Central line (Insertion date 03/22/13) -JO-NAN (03/22/13) -NG tube (03/22/13) ABX: Levaquin, Flagyl [...] M D - 03/24/2013 7:09 AM PDT [facility] DEPARTMENT OF SURGERY Daily Progress Note PROGRESS NOTE: Attending Physician: Meredith Steven MD 03/24/2013 Subjective/Overnight Events: - agitated and delirious overnight - given ativan and haldol - off norepi and BP stable - drain output 20cc MEDICATIONS: Reviewed in [facility] VITAL SIGNS: Refer to [facility] Intake/Output Summary (Last 24 hours) at [...] rounds. Devon Dove MD Surgery, R3 Diagnoses: [id number] Intestinal diverticular abscess This assessment and plan [...] separately billabl e procedures. LILIANA FERNANDEZ MD [id number] aub, Clemente Mitchell MD - 03/23/2013 11:01 [...] -continue to assess need for surgery vs. grain elevator operator drain placement #Agitation/delerium: understands she was disoriented [...] NSR. -trial duoneb -check trops given hx [place] -20mg IV Lasix now for diuresis #Hypotension: [...] Mathew DO - 0 03/22/2013 9:10 PM [facility] INTERVENTIONAL RADIOLOGY PROCEDURE NOTE DATE: 03/22/2013 9:11 [...] R hip replacement in 2007 with postoperative [place] which was treated medically . At baseline [...] colostomy. This was discussed with Dr. Steven, [facility] staff. KHAI DASH MD documented in this [...] | + +--------+ + + + | RHONA POC | Routin | 03/30/2013 | Intestinal | Results for this | | | e | 1:53 AM | diverticular abscess | procedure are in the | | | | PDT | | results section. | + +--------+ + + + | MARIXA ROSAS RESP | Routin | 03/30/2013 | Intestinal | Results for this | | | e | 1:53 AM | diverticular abscess | procedure are in the | | | | PDT | | results section. | + +--------+ + + + | TANO BARROSO WB POC | Routin | 03/30/2013 | Intestinal [...] MARQUAM | [address] | [place], [place] | | | BREANNA EMERY OF CARE | [facility] | [address] | | | TESTS | | | [...] | CATERINA RUGGIERO | [address] | [place], [place] | | | BREANNA EMERY OF ESTRELLA | [address] | [address] | | | TESTS | | | [...] MARQUAM | [address] | [place], [place] | | | BREANNA EMERY OF CARE | [address] | [address] | | | TESTS | | | [...] + | [facility] | [address] | [place], [place] | | | BREANNA EMERY OF CARE | [facility] | [address] | | | TESTS | | | [...] RUGGIERO | [address] | [place], [place] | | | BREANNA EMERY OF ESTRE[place]A | [address] | [address] | | | TESTS | | | [...] [facility] | [address] | [place] [address] | | | SERVICES, CORE | [address] [...] | | | LABORATORY | | | FAROESE | | | SERVICES, | | | [...] | + + + + + | [facility] | [address] [facility] [address] | [place] [address] | | | [facility] | [address] [...] | + + + + + | [facility] | [address] | [place] [address] | | | SERVICES, CORE | [address] | | | + + + + + MAGNESIUM, PLASMA (04/10/2013 3:40 AM PDT) + +-------+ + + + | Component | Value | Ref Range | Performed | Pathologist | | | | | At | Signature | + +-------+ + + + | MAGNESIUM,P | 2.2 | 1.8 - 2.5 mg/dL | [facility] | | | LASMA | | | [...] | + + + + + | [facility] | [address] | [place] [address] | | | SERVICES, CORE | [address] [...] RUGGIERO | [address] | [place], [place] | | | BREANNA EMERY OF ESTRELLA | [facility] | [address] | | | TESTS | | | [...] MARQUAM | [address] | [place], [place] | | | BREANNA EMERY OF CARE | [facility] | [address] | | | TESTS | | | [...] (H) | 60 - 99 mg/dL | [facility] - | | | GLUCOSE, | | [...] MARQUAM | [address] | [place], [place] | | | RUPERT POINT OF CARE | [address] | [address] | | | TESTS | | | [...] RUGGIERO | [address] | [place], [place] | | | BREANNA EMERY OF ESTRELLA | [facility] | [address] | | | TESTS | | | [...] [facility] | [address] | [place] [address] | | | SERVICES, CORE | [address] [...] | + + + + + | [facility] | [address] | [place] [address] | | | SERVICES, [facility] | [address] [...] | | | LABORATORY | | | FAROESE | | | SERVICES, | | | [...] + + | [facility] | [address] | [place] [address] | | | SERVICES, CORE | PARK [...] | + + + + + | [facility] | [address] | [place] [address] | | | SERVICES, CORE | GERDA [...] [facility] | [address] | [place] [address] | | | CLIFTON JARAMILLO | [address]DA [...] BAHMAN | [address] | [place], [place] | | | BREANNA EMERY OF CARE | [address] | [address] | | | TESTS | | | [...] (H) | 60 - 99 mg/dL | [facility] - | | | GLUCOSE, | | [...] RUGGIERO | [address] | [place], [place] | | | RUPERT POINT OF CARE | [address] | [address] | | | TESTS | | | [...] MARQUAM | [address] | [place], [place] | | | BREANNA EMERY OF CARE | [address] | [address] | | | TESTS | | | [...] | | | LTD FEEDING | COMPARISON: KUGema | | | | | TUBE EVAL [...] | | | | | | MDAuthor: NADREA Mc | | | | | | [...] (H) | 60 - 99 mg/dL | [facility] - | | | GLUCOSE, | | [...] BAHMAN | [address] | [place], [place] | | | BREANNA EMERY OF [facility] | [address] | [address] | | | TESTS | | | [...] | + + + + + | [facility] | [address] | [place] [address] | | | CLIFTON JARAMILLO | PARK [...] [facility] | [address] | [place] [id number] | | | SERVICES, CORE | GERDA [...] | | | LABORATORY | | | FAROESE | | | SERVICES, | | | [...] Information: <60 mL/min/1.73 sq m | SERVICES, [facility] | | Chronic [...] | + + + + + | [facility] | [address] | [place] [address] | | | [facility] | [address] [...] | + + + + + | [facility] | [address] | [place] [address] | | | SERVICES, CORE | PARK [...] | + + + + + | [facility] | [address] | [place] [address] | | | SERVICES, CORE | PARK [...] BAHMAN | [address] | [place], [place] | | | BREANNA EMERY OF [place] | [address] | [address] | | | TESTS | | | [...] + | [facility] | [address] | [place], [place] | | | BREANNA EMERY OF CARE | [facility] | [address] | | | TESTS | | | [...] (H) | 60 - 99 mg/dL | [facility] - | | | GLUCOSE, | | [...] RUGGIERO | [address] | [place], [place] | | | BREANNA EMERY OF CARE | [facility] | [address] | | | TESTS | | | [...] BAHMAN | [address] | [place], [place] | | | BREANNA EMERY OF [place] | [address] | [address] | | | TESTS | | | [...] + | [facility] | [address] | [place], [place] | | | RUPERT POINT OF CARE | [address] | [address] | | | TESTS | | | [...] | + + + + + | [facility] | [address] | [place] [address] | | | SERVICES, CORE | [address] | | | + + + + + PHOSPHORUS, PLASMA (04/07/2013 3:27 AM PDT) + +-------+ + + + | Component | Value | Ref Range | Performed | Pathologist | | | | | At | Signature | + +-------+ + + + | PHOSPHORUS, | 3.1 | 2.4 - 4.7 mg/dL | [facility] | | | PLASMA | | | [...] | + + + + + | [facility] | [address] | [place] [address] | | | SERVICES, CORE | PARK [...] | | | LABORATORY | | | FAROESE | | | SERVICES, | | | [...] ANION GAP | 7 | mmol/L | [facility] | | | | | | LABORATORY [...] | + + + + + | [facility] | [address] | [place] [address] | | | CLIFTON JARAMILLO | [address] [...] [facility] | [address] | [place] [address] | | | SERVICES, CORE | GERDA [...] | + + + + + | [facility] | [address] | [place] [address] | | | SERVICES, CORE | GERDA [...] (H) | 60 - 99 mg/dL | [facility] - | | | GLUCOSE, | | [...] + + + | [facility] RU[facility] | [address] | [place], [place] | | | BREANNA EMERY OF [place] | [address] | [address] | | | TESTS | | | [...] MARQUAM | [address] | [place], [place] | | | BREANNA EMERY OF CARE | [address] | [address] | | | TESTS | | | [...] RUGGIERO | [address] | [place], [place] | | | RUPERT [facility] | [address] | [address] | | | TESTS | | | [...] (H) | 60 - 99 mg/dL | [facility] - | | | GLUCOSE, | | [...] RUGGIERO | [address] | [place], [place] | | | RUPERT POINT OF CARE | [facility] | [address] | | | TESTS | | | [...] [facility] | [address] | [place] [address] | | | SERVICES, CORE | GERDA [...] | + + + + + | [facility] | [address] | [place] [address] | | | SERVICES, CORE | PARK [...] | | | LABORATORY | | | FAROESE | | | SERVICES, | | | [...] the MDRD equation recommended by the | [facility] | | National Kidney Disease Education Program. [...] | + + + + + | [facility] | [address] | [place] [address] | | | SERVICES, [facility] | [address] [...] [facility] | [address] | [place] [address] | | | SERVICES, CORE | [address] | | | + + + + + MAGNESIUM, PLASMA (04/06/2013 4:36 AM PDT) + +-------+ + + + | Component | Value | Ref Range | Performed | Pathologist | | | | | At | Signature | + +-------+ + + + | MAGNESIUM,P | 2.4 | 1.8 - 2.5 mg/dL | [facility] | | | LASMA | | | [...] | + + + + + | [employer] [facility] | [address] | [place] [address] | | | SERVICES, CORE | GERDA [...] DAWNAAM | [address] | [place] | | | BREANNA EMERY OF CARE | [address] | [address] | | | TESTS | | | | + + + + + CAPILLARY BLOOD GLUCOSE (NO CHG), POC (04/05/2013 5:54 PM PDT) + +-------+ + + + | Component | Value | Ref Range | Performed | Pathologist | | | | | At | Signature | + +-------+ + + + | BLOOD | 89 | 60 - 99 mg/dL | [facility] [...] MARQUAM | [address] | [place], [place] | | | BREANNA EMERY OF CARE | [address] | [address] | | | TESTS | | | [...] RUGGIERO | [address] | [place], [place] | | | BREANNA EMERY OF CARE | [address] | [address] | | | TESTS | | | [...] DAWNAAM | [address] | [place], [place] | | | BREANNA EMERY OF CARE | [address] | [address] | | | TESTS | | | [...] + + | [facility] | [address] | [place] [address] | | | SERVICES, CORE | PARK [...] | | | LABORATORY | | | FAROESE | | | SERVICES, | | | [...] [facility] | [address] | [place] [address] | | | SERVICES, CORE | PARK [...] [facility] | [address] | [place] [address] | | | SERVICES, CORE | PARK [...] | + + + + + | [facility] | [address] | [place] [address] | | | ELLA, CLIFTON | [address] [...] [facility] | [address] | [place] [address] | | | SERVICES, CORE | PARK [...] | | | LABORATORY | | | FAROESE | | | SERVICES, | | | [...] | + + + + + | [facility] | [address] | [place] [address] | | | ELLA, CLIFTON | G[address]DA [...] BAHMAN | [address] | [place], [place] | | | RUPERT [facility] | [address] | [address] | | | TESTS | | | [...] | | | | | | ANDREA V CESIA, | | | | | | MDAuthor: [...] | | + +---------+ + + | [facility] DEPARTMENT OF | | | | | [...] BAHMAN | [address] | [place], [place] | | | BREANNA EMERY OF CARE | [address] | [address] | | | TESTS | | | [...] DAWNAAM | [address] | [place], [place] | | | BREANNA EMERY OF ESTRE[place] | [facility] | [address] | | | TESTS | | | [...] (H) | 60 - 99 mg/dL | [facility] - | | | GLUCOSE, | | [...] RUGGIERO | [address] | [place], [place] | | | RUPERT POINT OF CARE | [address] | [address] | | | TESTS | | | [...] | + + + + + | [facility] | [address] | [place] [address] | | | SERVICES, CORE | PARK [...] | | | LABORATORY | | | FAROESE | | | SERVICES, | | | [...] | + + + + + | [facility] | [address] | [place] [address] | | | SERVICES, CORE | GERDA [...] [facility] | [address] | [place] [address] | | | SERVICES, CORE | PARK [...] | + + + + + | [facility] | [address] | [place] [address] | | | ELLA, CLIFTON | PARK [...] | + + + + + | [facility] | [address] | [place] [address] | | | SERVICES, CORE | GERDA [...] | | | LABORATORY | | | FAROESE | | | SERVICES, | | | [...] | + + + + + | [facility] | [address] | [place] [address] | | | SERVICES, CORE | GERDA [...] (H) | 60 - 99 mg/dL | [facility] - | | | GLUCOSE, | | [...] RUGGIERO | [address] | [place], [place] | | | BREANNA EMERY OF CARE | [address] | [address] | | | TESTS | | | [...] MARQUAM | [address] | [place], [place] | | | BREANNA EMERY OF CARE | [address] | [address] | | | TESTS | | | [...] | | | | signed / SIMI MARGOTH | | | | | | 04/03/2013 19:33 PM | | | | + + + + + + + + | Specimen | + + | | + + + +---------+ + + | Performing | Address | City/State/Zipcode | Phone Number | | Organization | | | | + +---------+ + + | [facility] DEPARTMENT OF | | | | | [...] and | | | | | | thecommon bile duct | | | | | [...] (H) | 60 - 99 mg/dL | [facility] - | | | GLUCOSE, | | [...] RUGGIERO | [address] | [place], [place] | | | RUPERT POINT OF CARE | [address] | [address] | | | TESTS | | | [...] BAHMAN | [address] | [place], [place] | | | BREANNA EMERY OF [facility] | [address] | [address] | | | TESTS | | | [...] | + + + + + | [facility] | [address] | [place] [address] | | | CLIFTON JARAMILLO | PARK [...] | | | LABORATORY | | | FAROESE | | | SERVICES, | | | [...] ANION GAP | 6 | mmol/L | [facility] | | | | | | LABORATORY [...] | + + + + + | [facility] | [address] | [place] [address] | | | SERVICES, CORE | GERDA [...] [facility] | [address] | [place] [address] | | | SERVICES, CORE | PARK [...] [facility] | [address] | [place] [address] | | | SERVICES, CORE | PARK [...] | + + + + + | [employer] | [address] | [place] [address] | | | SERVICES, CORE | GERDA [...] | | | LABORATORY | | | FAROESE | | | SERVICES, | | | [...] | + + + + + | [facility] | [address] | [place] [address] | | | SERVICES, CORE | GERDA [...] + + + | CATERINA RUGGIERO | [address] | [place], [place] | | | RUPERT POINT OF CARE | [address] | [address] | | | TESTS | | | [...] MARQUAM | [address] | [place], [place] | | | RUPERT POINT OF CARE | [address] | [address] | | | TESTS | | | [...] | | + +---------+ + + | [facility] DEPARTMENT OF | | | | | [...] DAWNAAM | [address] | [place] | | | BREANNA EMERY OF CARE | [address] | [address] | | | TESTS | | | [...] BAHMAN | [address] | [place], [place] | | | BREANNA EMERY OF [facility] | [address] | [address] | | | TESTS | | | [...] | + + + + + | [facility] | [address] | [place] [address] | | | SERVICES, CORE | GERDA [...] | | | LABORATORY | | | FAROESE | | | SERVICES, | | | [...] | + + + + + | [facility] | [address] | [place] [address] | | | SERVICES, CORE | [address] | | | + + + + + LIPASE, PLASMA (04/02/2013 2:04 AM PDT) + +---------+ + + + | Component | Value | Ref Range | Performed | Pathologist | | | | | At | Signature | + +---------+ + + + | LIPASE | 743 (H) | 152 - 353 U/L | CATERINA | | | (LAB) | | | [...] | + + + + + | [facility] | [address] | [place] [address] | | | SERVICES, CORE | PARK [...] | + + + + + | [facility] | [address] | [place] [address] | | | ELLA, CORE | [address] | | | + + + + + MAGNESIUM, PLASMA (04/02/2013 2:04 AM PDT) + +-------+ + + + | Component | Value | Ref Range | Performed | Pathologist | | | | | At | Signature | + +-------+ + + + | MAGNESIUM,P | 2.2 | 1.8 - 2.5 mg/dL | [facility] | | | BOOKERMA | | | [...] | + + + + + | [facility] | [address] | [place] [address] | | | SERVICES, CORE | PARK [...] | | | LABORATORY | | | FAROESE | | | SERVICES, | | | [...] the MDRD equation recommended by the | [facility] | | National Kidney Disease Education Program. [...] | + + + + + | [facility] | [address] | [place] [address] | | | SERVICES, CORE | GERDA [...] (H) | 60 - 99 mg/dL | [facility] - | | | GLUCOSE, | | [...] RUGGIERO | [address] | [place], [place] | | | BREANNA EMERY OF [facility] | [facility] | [address] | | | TESTS | | | [...] BAHMAN | [address] | [place], [place] | | | BREANNA EMERY OF [place] | [address] | [address] | | | TESTS | | | [...] BAHMAN | [address] | [place], [place] | | | RUPERT POINT OF [facility] | [address] | [address] | | | TESTS | | | [...] | | | LABORATORY | | | FAROESE | | | SERVICES, | | | [...] [facility] | [address] | [place] [address] | | | SERVICES, CORE | PARK [...] + + | [facility] | [address] | [place] [address] | | | SERVICES, CORE | GERDA [...] | + + + + + | [facility] | [address] | [place] [address] | | | ELLA, CL[place]ON | PARK [...] [facility] | [address] | [place] [address] | | | SERVICES, CORE | [address] | | | + + + + + MAGNESIUM, PLASMA (04/01/2013 2:13 AM PDT) + +-------+ + + + | Component | Value | Ref Range | Performed | Pathologist | | | | | At | Signature | + +-------+ + + + | MAGNESIUM,P | 2.1 | 1.8 - 2.5 mg/dL | [facility] | | | LASMA | | | [...] [facility] | [address] | [place] [address] | | | SERVICES, CORE | PARK [...] | | | LABORATORY | | | FAROESE | | | SERVICES, | | | [...] the MDRD equation recommended by the | [facility] | | National Kidney Disease Education Program. [...] [facility] | [address] | [place] [address] | | | SERVICES, CORE | PARK [...] | + + + + + | [facility] | [address] | [place] [address] | | | SERVICES, [place] | GERDA [...] [facility] | [address] | [place] [address] | | | SERVICES, CORE | [address] | | | + + + + + LACTIC ACID (04/01/2013 12:36 AM PDT) + +-------+ + + + | Component | Value | Ref Range | Performed | Pathologist | | | | | At | Signature | + +-------+ + + + | LACTATE | 0.7 | mmol/L | [facility] | | | | | | LABORATORY [...] [facility] | [address] | [place] [address] | | | CLIFTON JARAMILLO | [address] [...] + | [facility] | [address] | [place], [place] | | | RUPERT POINT OF [facility] | [address] | [address] | | | TESTS | | | [...] | + + + + + | [facility] | [address] | [place] [address] | | | SERVICES, CORE | PARK [...] | | | LABORATORY | | | FAROESE | | | SERVICES, | | | [...] | + + + + + | [facility] | [address] | [place] [address] | | | SERVICES, CORE | GERDA [...] (H) | 60 - 99 mg/dL | [facility] - | | | GLUCOSE, | | [...] RUGGIERO | [address] | [place], [place] | | | RUPERT POINT OF CARE | [address] | [address] | | | TESTS | | | [...] MALIK | Christiano | | | | 03/31/2013 16:49 PM [...] | + + + + + | [facility] | [address] | [place] [address] | | | SERVICES, CORE | PARK [...] (H) | 60 - 99 mg/dL | [facility] - | | | GLUCOSE, | | [...] RUGGIERO | [address] | [place], [place] | | | BREANNA EMERY OF ESTRELLA | [facility] | [address] | | | TESTS | | | | + + + + + X-RAY PORTABLE CHEST 1 VIEW (03/31/2013 10:40 AM PDT) + + + + + + | Component | Value | Ref Range | Performed | Pathologist | | | | | At | Signature | + + + + + + | X-RAY | EXAM: FL CHEST 1 VIEW | | | | [...] | | + +---------+ + + | [facility] DEPARTMENT OF | | | | | [...] MARQUAM | [address] | [place], [place] | | | RUPERT POINT OF CARE | [address] | [address] | | | TESTS | | | [...] [facility] | [address] | [place] [address] | | | SERVICES, CORE | PARK [...] | + + + + + | [facility] | [address] | [place] [address] | | | SERVICES, CORE | [address] | | | + + + + + MAGNESIUM, PLASMA (03/31/2013 4:11 AM PDT) + +-------+ + + + | Component | Value | Ref Range | Performed | Pathologist | | | | | At | Signature | + +-------+ + + + | MAGNESIUM,P | 2.3 | 1.8 - 2.5 mg/dL | [facility] [...] [facility] | [address] | [place] [address] | | | SERVICES, CORE | GERDA [...] + | [facility] | [address] | [place], [place] | | | RUPERT POINT OF CARE | [address] | [address] | | | TESTS | | | [...] RUGGIERO | [address] | [place], [place] | | | BREANNA EMERY OF [facility] | [address] | [address] | | | TESTS | | | [...] | | | LABORATORY | | | FAROESE | | | SERVICES, | | | [...] | + + + + + | [facility] | [address] | [place] [address] | | | SERVICES, CORE | [address] | | | + + + + + 12 LEAD ECG (03/30/2013 8:19 PM PDT) + + + + + + | Component | Value | Ref Range | Performed | Pathologist | | | | | At | Signature | + + + + + + | VENTRICULAR | 93 | BPM | [facility] | | | RATE | | [...] | | | | | IVÁN DILLON (1033) | | | | | | on 04/01/2013 12:41:47 PM | | | | + + + + + + + + | Specimen | + + | | + + + + + | Narrative | Performed At | + + + | Please click | [facility] | | on view image for the detailed interpretation from [employer] results. | CARDIOLOGY | + + + + + | Procedure Note | + + | Interface, Cardiology Results - 04/01/2013 12:41 PM PDT Please click on view image | | for the detailed interpretation from [employer] results. | + + + + + + + | Performing | Address | City/State/Zipcode | Phone Number | | Organization | | | | + + + + + | [facility] | [address] | [place], [place] | | | CARDIOLOGY | [address] | [address] | | + + + + + [...] | | | | | signed / NANI | | | | | [...] + + | [facility] | [address] | [place] [address] | | | SERVICES, CORE | [address] [...] [facility] | [address] | [place] [address] | | | SERVICES, CORE | PARK [...] | 1.013 | 1.005 - 1.030 | [facility] | [...] [facility] | [address] | [place] [address] | | | SERVICES, CORE | PARK [...] [facility] | [address] | [place] [address] | | | SERVICES, CORE | PARK [...] [facility] | [address] | [place] [address] | | | CLIFTON JARAMILLO | [address] [...] RUGGIERO | [address] | [place], [place] | | | [place] [facility] | [address] | [address] | | | TESTS | | | [...] | | | LABORATORY | | | FAROESE | | | SERVICES, | | | [...] [facility] | [address] | [place] [address] | | | SERVICES, CORE | PARK [...] | + + + + + | [facility] | [address] | [place] [address] | | | SERVICES, CORE | GERDA [...] (H) | 60 - 99 mg/dL | [facility] - | | | GLUCOSE, | | [...] RUGGIERO | [address] | [place], [place] | | | RUPERT POINT OF CARE | [address] | [address] | | | TESTS | | | [...] | + + + + + | [facility] | [address] | [place] [address] | | | SERVICES, CORE | GERDA [...] [facility] | [address] | [place], [place] | | | THERAPY | [address] | [address] | | + + + + + LACTATE, POC (03/30/2013 1:53 AM PDT) + +-------+ + [...] [facility] | [address] | [place], [place] | | | THERAPY | [address] | [address] | | + + + + + [...] + + | [facility] | [address] | [place], [place] | | | THERAPY | [address] | [address] | | + + + + + [...] [facility] | [address] | [place], [place] | | | THERAPY | [address] | [address] | | + + + + + [...] + + | [facility] | [address] | [place], [place] | | | THERAPY | [address] | [address] | | + + + + + [...] [facility] | [address] | [place], [place] | | | THERAPY | [address] | [address] | | + + + + + X-RAY PORTABLE CHEST 1 VIEW (03/30/2013 1:51 AM PDT) + + + + + + | Component | Value | Ref Range | Performed | Pathologist | | | | | At | Signature | + + + + + + | X-RAY | EXAM: FL CHEST 1 VIEW | | | | [...] BE[facility] | | | | | | REMI AGUIRREuthor: | | | | | | ANGEL [...] | | | | | kayy / BEBO | | | | | [...] | | + +---------+ + + | [facility] DEPARTMENT OF | | | | | [...] | + + + + + | [facility] | [address] | [place] [address] | | | CLIFTON JARAMILLO | GERDA [...] [facility] | [address] | [place] [address] | | | SERVICES, CORE | PARK [...] | + + + + + | [facility] | [address] | [place] [address] | | | SERVICES, CORE | PARK [...] [facility] | [address] | [place] [address] | | | SERVICES, CORE | PARK [...] [facility] | [address] | [place] [address] | | | SERVICES, CORE | PARK [...] | | | LABORATORY | | | FAROESE | | | SERVICES, | | | [...] | + + + + + | [facility] | [address] | [place] [address] | | | CLIFTON JARAMILLO | [address] | | | + + + + + TRANSTHORACIC ECHOCARDIOGRAM, ADULT (03/30/2013 12:00 AM PDT) + + + | Narrative | Performed At | + + + | | | | | | + + + + + | Procedure Note | + + | Kaden, Faculty - 03/30/2013 11:34 AM PDT | + [...] [facility] | [address] | [place], [place] | | | HILL, POINT OF CARE | [address] | [address] | | | TESTS | | | | + + + + + X-RAY PORTABLE CHEST 1 VIEW (03/29/2013 9:59 PM PDT) + + + + + + | Component | Value | Ref Range | Performed | Pathologist | | | | | At | Signature | + + + + + + | X-RAY | EXAM: FL CHEST 1 VIEW | | | | [...] (H) | 60 - 99 mg/dL | [facility] - | | | GLUCOSE, | | [...] [facility] | [address] | [place], [place] | | | BREANNA EMERY OF [facility] | [facility] | [address] | | | TESTS | | | [...] | | + +---------+ + + | [facility] DEPARTMENT OF | | | | | [...] [facility] | [address] | [place], [place] | | | BREANNA EMERY OF [facility] | [address] | [address] | | | TESTS | | | [...] (H) | 60 - 99 mg/dL | [facility] - | | | GLUCOSE, | | [...] [facility] | [address] | [place], [place] | | | BREANNA EMERY OF [facility] | [address] | [address] | | | TESTS | | | [...] | | | | | AJ WOMACK ([id number]) on | | | | | | 03/29/2013 2:22:51 PM | | | | + + + + + + + + | Specimen | + + | | + + + + + | Narrative | Performed At | + + + | Please click | [facility] | | on view image for the detailed interpretation from [employer] results. | CARDIOLOGY | + + + + + | Procedure Note | + + | Interface, Cardiology Results - 03/29/2013 2:23 PM PDT Please click on view image | | for the detailed interpretation from [employer] results. | + + + + + + + | Performing | Address | City/State/Zipcode | Phone Number | | Organization | | | | + + + + + | [facility] | [address] | [place], [place] | | | CARDIOLOGY | [facility] | [address] | | + + + + + [...] | + + + + + | [facility] | [address] | [place] [address] | | | CLIFTON JARAMILLO | [address] [...] [facility] | [address] | [place] [address] | | | SERVICES, CLIFTON | [address] [...] [facility] | [address] | [place] [address] | | | SERVICES, CORE | PARK [...] | | | LABORATORY | | | FAROESE | | | SERVICES, | | | [...] the MDRD equation recommended by the | [facility] | | National Kidney Disease Education Program. [...] | + + + + + | [facility] | [address] | [place] [address] | | | ELLA, CLIFTON | [address] | | | + + + + + CAPILLARY BLOOD GLUCOSE (NO CHG), POC (03/29/2013 1:11 AM PDT) + +---------+ + + + | Component | Value | Ref Range | Performed | Pathologist | | | | | At | Signature | + +---------+ + + + | BLOOD | 148 (H) | 60 - 99 mg/dL | [facility] - | | | GLUCOSE, | | [...] BAHMAN | [address] | [place], [place] | | | BREANNA EMERY OF CARE | [address] | [address] | | | TESTS | | | [...] | + + + + + | [facility] | [address] | [place] [address] | | | SERVICES, CORE | GERDA [...] MARQUAM | [address] | [place], [place] | | | BREANNA EMERY OF CARE | [facility] | [address] | | | TESTS | | | [...] | + + + + + | [facility] | [address] | [place] [address] | | | CLIFTON JARAMILLO | GERDA MILLER | | | + + + + + CAPILLARY BLOOD GLUCOSE (NO CHG), POC (03/28/2013 2:09 PM PDT) + +---------+ + + + | Component | Value | Ref Range | Performed | Pathologist | | | | | At | Signature | + +---------+ + + + | BLOOD | 149 (H) | 60 - 99 mg/dL | [facility] - | | | GLUCOSE, | | [...] RUGGIERO | [address] | [place], [place] | | | BREANNA EMERY OF [facility] | [address] | [address] | | | TESTS | | | | + + + + + X-RAY ABD LTD FEEDING TUBE EVAL PORTABLE (03/28/2013 12:41 PM PDT) + + + + + + | Component | Value | Ref Range | Performed | Pathologist | | | | | At | Signature | + + + + + + | X-RAY ABD | EXAM: FL ABD LTD | | | | | [...] | | | | | kayy / ZENOBIA | | | | | [...] + + + | X-RAY | STUDY: FL CHEST 1 VIEW | | | | [...] | | | | | kayy / ZENOBIA | | | | | [...] MARQUAM | [address] | [place], [place] | | | BREANNA EMERY OF CARE | [address] | [address] | | | TESTS | | | [...] [facility] | [address] | [place] [address] | | | SERVICES, CORE | PARK [...] | + + + + + | [facility] | [address] | [place] [address] | | | SERVICES, CORE | GERDA [...] | + + + + + | [facility] | [address] | [place] [address] | | | SERVICES, CORE | PARK [...] | | | LABORATORY | | | FAROESE | | | SERVICES, | | | [...] | + + + + + | [facility] | [address] | [place] [address] | | | SERVICES, CORE | GERDA [...] MARQUAM | [address] | [place], [place] | | | RUPERT POINT OF CARE | [address] | [address] | | | TESTS | | | [...] CATERINA RUGGIERO | [address] | [place], [place] | | | RUPERT POINT OF CARE | [address] | [address] | | | TESTS | | | [...] | + + + + + | [facility] | [address] | [place] [address] | | | SERVICES, CORE | GERDA [...] | | + +---------+ + + | [facility] DEPARTMENT OF | | | | | [...] | | | | | | TECHNIQUE: Principal Military Analyst imaging | | | | | | [...] | | | | | | 03/27/2013 13:25 PM [...] | | | | | AJ WOMACK ([id number]) on | | | | | | 03/29/2013 2:10:24 PM | | | | + + + + + + + + | Specimen | + + | | + + + + + | Narrative | Performed At | + + + | Please click | [facility] | | on view image for the detailed interpretation from [employer] results. | CARDIOLOGY | + + + + + | Procedure Note | + + | Interface, Cardiology Results - 03/29/2013 2:10 PM PDT Please click on view image | | for the detailed interpretation from [employer] results. | + + + + + + + | Performing | Address | City/State/Zipcode | Phone Number | | Organization | | | | + + + + + | [facility] | [address] | [place], [place] | | | CARDIOLOGY | [address] | [address] | | + + + + + [...] | + + + + + | [facility] | [address] | [place] [address] | | | CLIFTON JARAMILLO | GERDA [...] (H) | 60 - 99 mg/dL | [facility] - | | | GLUCOSE, | | [...] MARQUAM | [address] | [place], [place] | | | RUPERT POINT OF CARE | [address] | [address] | | | TESTS | | | [...] RUGGIERO | [address] | [place], [place] | | | BREANNA EMERY OF ESTRELLA | [facility] | [address] | | | TESTS | | | [...] [facility] | [address] | [place] [address] | | | SERVICES, CORE | PARK [...] + + | [facility] | [address] | [place] [address] | | | SERVICES, CORE | PARK [...] | + + + + + | [facility] | [address] | [place] [address] | | | SERVICES, CORE | GERDA [...] | | | LABORATORY | | | FAROESE | | | SERVICES, | | | [...] LABORATORY | [address] | [place] [address] | | | SERVICES, CORE | [address] | | | + + + + + TROPONIN I, PLASMA (03/27/2013 3:13 AM PDT) + +-------+ + + + | Component | Value | Ref Range | Performed | Pathologist | | | | | At | Signature | + +-------+ + + + | TROPONIN I | 0.36 | <0.80 ng/mL | [facility] | | [...] | + + + + + | [facility] | [address] | [place] [address] | | | SERVICES, CORE | GERDA [...] | | | | signed / JOCELYNE SOHAEY | | | | | | 03/27/2013 [...] BAHMAN | [address] | [place], [place] | | | RUPERT [facility] | [facility] | [address] | | | TESTS | | | [...] | + + + + + | [facility] | [address] | [place] [address] | | | SERVICES, CORE | [address] | | | + + + + + X-RAY PORTABLE CHEST 1 VIEW (03/26/2013 10:36 PM PDT) + + + + + + | Component | Value | Ref Range | Performed | Pathologist | | | | | At | Signature | + + + + + + | X-RAY | STUDY: FL CHEST 1 VIEW | | | | [...] Mc | | | | | | OSITO, MDAuthor: | | | | | | [...] | + + + + + | [facility] | [address] | [place] [address] | | | SERVICES, CORE | PARK [...] + + + | Please click | [facility] | | on view image for the detailed interpretation from [employer] results. | CARDIOLOGY | + + + + + | Procedure Note | + + | Interface, Cardiology Results - 03/27/2013 11:16 PM PDT Please click on view image | | for the detailed interpretation from [employer] results. | + + + + + + + | Performing | Address | City/State/Zipcode | Phone Number | | Organization | | | | + + + + + | [facility] | [address] | [place], [place] | | | CARDIOLOGY | [address] | [address] | | + + + + + [...] view image for the detailed interpretation from [employer] results. | CARDIOLOGY | + + + + + | Procedure Note | + + | Interface, Cardiology Results - 03/27/2013 11:16 PM PDT Please click on view image | | for the detailed interpretation from [employer] results. | + + + + + + + | Performing | Address | City/State/Zipcode | Phone Number | | Organization | | | | + + + + + | [facility] | [address] | [place], [place] | | | CARDIOLOGY | [address] | [address] | | + + + + + [...] - MARQUAM | [address] | [place], [place] | | | [place], POINT OF CARE | [address] | [address] | | | TESTS | | | [...] | + + + + + | [facility] | [address] | [place] [address] | | | SERVICES, [place] | GERDA [...] [facility] | [address] | [place] [address] | | | SERVICES, CORE | PARK [...] [facility] | [address] | [place] [address] | | | SERVICES, CORE | [address] [...] | | | LABORATORY | | | FAROESE | | | SERVICES, | | | [...] the MDRD equation recommended by the | [facility] | | National Kidney Disease Education Program. [...] | + + + + + | [facility] | [address] | [place] [address] | | | ELLA, CL[place] | [address] | | | + + + + + X-RAY PORTABLE CHEST 1 VIEW (03/26/2013 6:10 PM PDT) + + + + + + | Component | Value | Ref Range | Performed | Pathologist | | | | | At | Signature | + + + + + + | X-RAY | STUDY:FL CHEST 1 VIEW | | | | [...] | | + +---------+ + + | [facility] DEPARTMENT OF | | | | | [...] RUGGIERO | [address] | [place], [place] | | | RUPERT [facility] | [address] | [address] | | | TESTS | | | [...] + + | Performing | Address | City/State/[facility] | Phone Number | | Organization | [...] | + + + + + | [facility] | [address] | [place] [address] | | | SERVICES, CORE | GERDA [...] (H) | 60 - 99 mg/dL | [facility] - | | | GLUCOSE, | | [...] RUGGIERO | [address] | [place], [place] | | | RUPERT POINT OF CARE | [address] | [address] | | | TESTS | | | [...] MARQUAM | [address] | [place], [place] | | | RUPERT POINT OF CARE | [address] | [address] | | | TESTS | | | [...] [facility] | [address] | [place] [address] | | | SERVICES, CORE | [address] [...] | + + + + + | [facility] | [address] | [place] [address] | | | SERVICES, CORE | GERDA [...] [facility] | [address] | [place] [address] | | | SERVICES, CORE | GERDA [...] | | | LABORATORY | | | FAROESE | | | SERVICES, | | | [...] | + + + + + | [facility] | [address] | [place] [address] | | | CLIFTON JARAMILLO | GERDA [...] [facility] | [address] | [place] [address] | | | SERVICES, CORE | GERDA [...] + | [facility] | [address] | [place], [place] | | | RUPERT POINT OF CARE | [address] | [address] | | | TESTS | | | [...] view image for the detailed interpretation from [employer] results. | CARDIOLOGY | + + + + + | Procedure Note | + + | Interface, Cardiology Results - 03/27/2013 8:43 PM PDT Please click on view image | | for the detailed interpretation from [employer] results. | + + + + + + + | Performing | Address | City/State/Zipcode | Phone Number | | Organization | | | | + + + + + | [facility] | [address] | [place], [place] | | | CARDIOLOGY | [address] | [address] | | + + + + + X-RAY PORTABLE CHEST 1 VIEW (03/25/2013 8:43 PM PDT) + + + + + + | Component | Value | Ref Range | Performed | Pathologist | | | | | At | Signature | + + + + + + | X-RAY | STUDY: FL CHEST 1 VIEW | | | | [...] + + | Performing | Address | City/State/[facility] [place] [facility] | Phone Number | | Organization | [...] [facility] | [address] | [place] [address] | | | ELLA, CLIFTON | [address] [...] | + + + + + | [facility] | [address] | [place] [address] | | | SERVICES, CORE | GERDA [...] ranges for some CBC/Differential analytes in | CLIFTON JARAMILLO | | effect on 02/27/13. | | + + + + + + + + | Performing | Address | City/State/Zipcode | Phone Number | | Organization | | | | + + + + + | [facility] | [address] | [place] [address] | | | CLIFTON JARAMILLO | GERDA [...] | | | LABORATORY | | | FAROESE | | | SERVICES, | | | [...] | + + + + + | [facility] | [address] | [place] [address] | | | SERVICES, CL[place] | GERDA [...] [facility] | [address] | [place] [address] | | | SERVICES, CL[place] | GERDA [...] [facility]INA RUGGIERO | [address] | [place], [place] | | | RUPERT POINT OF CARE | [address] | [address] | | | TESTS | | | [...] | | | Final CULTURE | | [place] | | | | RESULT:No growth (<1000 [...] + | [facility] - | [address] | [place] [address] | | | [place] | | | | + + + + + UA, DIPSTICK ONLY (03/25/2013 8:25 PM PDT) + + [...] | + + + + + | [facility] | [address] | [place] [address] | | | SERVICES, CORE | PARK [...] | + +---------+ + + + | NON-SQUAMOU | Few (A) | None /hpf | [...] + + | [facility] | [address] | [place] [address] | | | SERVICES, CLIFTON | [address] [...] Screen Positive, specimen sent for culture. | [facility] | | | LABORATORY | | | SERVICES, CORE | + + + + + + + + | Performing | Address | City/State/Zipcode | Phone Number | | Organization | | | | + + + + + | [facility] | [address] | [place] [address] | | | SERVICES, CORE | P[address] [...] MARQUAM | [address] | [place], [place] | | | BREANNA EMERY OF CARE | [address] | [address] | | | TESTS | | | [...] | | + +---------+ + + | [facility] DEPARTMENT OF | | | | | [...] CATERINA RUGGIERO | [address] | [place], [place] | | | BREANNA EMERY OF [facility] | [address] | [address] | | | TESTS | | | [...] | | | | | | IVÁN DILOLN (3093) | | | | | | on 03/25/2013 10:27:32 PM | | | | + + + + + + + + | Specimen | + + | | + + + + + | Narrative | Performed At | + + + | Please click | [facility] | | on view image for the detailed interpretation from [employer] results. | CARDIOLOGY | + + + + + | Procedure Note | + + | Interface, Cardiology Results - 03/25/2013 10:27 PM PDT Please click on view image | | for the detailed interpretation from [employer] results. | + + + + + + + | Performing | Address | City/State/Zipcode | Phone Number | | Organization | | | | + + + + + | [facility] | [address] | [place], [place] | | | CARDIOLOGY | [address] | [address] | | + + + + + [...] [facility] RUGGIERO | [address] | [place], [place] | | | RUPERT [facility] | [address] | [address] | | | TESTS | | | [...] | + + + + + | [facility] | [address] | [place] [address] | | | SERVICES, CORE | PARK [...] on 02/27/13. | LABORATORY | | | SERVICESCLIFTON | + + + + + + + + | Performing | Address | City/State/Zipcode | Phone Number | | Organization | | | | + + + + + | [facility] | [address] | [place] [address] | | | SERVICES, [place] | GERDA [...] [facility] | [address] | [place] [address] | | | SERVICES, CORE | PARK [...] | | | LABORATORY | | | FAROESE | | | SERVICES, | | | [...] the MDRD equation recommended by the | [facility] | | National Kidney Disease Education Program. [...] | + + + + + | [facility] | [address] | [place] [address] | | | ELLA, [place] | GERDA [...] MARQUAM | [address] | [place], [place] | | | BREANNA EMERY OF [place] | [address] | [address] | | | TESTS | | | [...] RUGGIERO | [address] | [place], [place] | | | BREANNA EMERY OF CARE | [address] | [address] | | | TESTS | | | [...] MARQUAM | [address] | [place], [place] | | | BREANNA EMERY OF CARE | [address] | [address] | | | TESTS | | | [...] MARQUAM | [address] | [place], [place] | | | BREANNA EMERY OF CARE | [address] | [address] | | | TESTS | | | [...] RUGGIERO | [address] | [place], [place] | | | BREANNA EMERY OF [facility] | [address] | [address] | | | TESTS | | | [...] MARQUAM | [address] | [place], [place] | | | BREANNA EMERY OF CARE | [address] | [address] | | | TESTS | | | [...] [facility] | [address] | [place] [address] | | | SERVICES, CORE | PARK [...] | + + + + + | [facility] | [address] | [place] [address] | | | SERVICES, CORE | PARK [...] [facility] | [address] | [place] [address] | | | SERVICES, CORE | [address] | | | + + + + + MAGNESIUM, PLASMA (03/24/2013 1:29 AM PDT) + +-------+ + + + | Component | Value | Ref Range | Performed | Pathologist | | | | | At | Signature | + +-------+ + + + | MAGNESIUM,P | 1.9 | 1.8 - 2.5 mg/dL | [facility] [...] [facility] | [address] | [place] [address] | | | SERVICES, CORE | PARK [...] | | | LABORATORY | | | FAROESE | | | SERVICES, | | | [...] | + + + + + | [facility] | [address] | [place] [address] | | | CLIFTON JARAMILLO | GERDA [...] | + + + + + | [facility] | [address] | [place] [address] | | | SERVICES, CORE | PARK [...] | + + + + + | [facility] | [address] | [place] [address] | | | SERVICES, CORE | GERDA [...] | | | Final CULTURE | | [place] | | | | RESULT:No growth (<1000 [...] + | [facility] - | [address] | [place] [address] | | | [place] | | | [...] | + + + + + | [facility] | [address] | [place] [address] | | | SERVICES, CORE | GERDA [...] [facility] | [address] | [place] [address] | | | SERVICES, CORE | GERDA [...] view image for the detailed interpretation from [employer] results. | CARDIOLOGY | + + + + + | Procedure Note | + + | Interface, Cardiology Results - 03/24/2013 11:18 PM PDT Please click on view image | | for the detailed interpretation from [employer] results. | + + + + + + + | Performing | Address | City/State/Zipcode | Phone Number | | Organization | | | | + + + + + | [facility] | [address] | [place], [place] | | | CARDIOLOGY | [address] | [address] | | + + + + + X-RAY PORTABLE CHEST 1 VIEW (03/23/2013 9:56 AM PDT) + + + + + + | Component | Value | Ref Range | Performed | Pathologist | | | | | At | Signature | + + + + + + | X-RAY | STUDY: FL CHEST 1 VIEW | | | | [...] | + + + + + | [facility] | [address] | [place] [address] | | | SERVICES, CORE | GERDA [...] RUGGIERO | [address] | [place], [place] | | | BREANNA EMERY OF [place] | [facility] | [address] | | | TESTS | | | [...] [facility] | [address] | [place] [address] | | | SERVICES, CORE | [address] | | | + + + + + MAGNESIUM, PLASMA (03/23/2013 2:49 AM PDT) + +-------+ + + + | Component | Value | Ref Range | Performed | Pathologist | | | | | At | Signature | + +-------+ + + + | MAGNESIUM,P | 2.0 | 1.8 - 2.5 mg/dL | [facility] | | | LASMA | | | [...] [facility] | [address] | [place] [address] | | | SERVICES, CORE | GERDA [...] | + + + + + | [facility] | [address] | [place] [address] | | | CLIFTON JARAMILLO | [address]DA [...] | | | LABORATORY | | | FAROESE | | | SERVICES, | | | [...] | + + + + + | [facility] | [address] | [place] [address] | | | SERVICES, CORE | PARK [...] | | | | DRAINAGE | Attending: Nilesh, | | | | | | Carlito [...] | | | | placement of 10 [place] Islander | | | | | | multipurpose [...] | | | | | | 10 [place] Island[place] multipurpose | | | | | | [...] | | | | | | 12 [place] Islander drainage | | | | | | catheter was positioned | | | | | | in the collection. | | | | | | Impression: 1. Fluid | | | | | | collection in the left | | | | | | pelvis consistent with | | | | | | an abscess 2. 10 [place] Islander | | | | | | multipurpose [...] | | | | | kayy / CARLITO | | | | | [...] | | + +---------+ + + | [facility] DEPARTMENT OF | | | | | [...] | | | Final GRAM | | [place] | | | | STAIN:Many | | [...] + | [facility] - | [address] | [place] [address] | | | [place] | | | | + + + [...] [facility] | [address] | [place] [address] | | | SERVICES, | [address] [...] | + + + + + | [facility] | [address] | [place] [address] | | | SERVICES, | [address] | | | | TRANSFUSION MEDICINE [...] | + + + + + | [facility] | [address] | [place] [address] | | | SERVICES, CORE | PARK [...] [facility] | [address] | [place] [address] | | | SERVICES, [place] | PARK [...] [facility] | [address] | [place] [address] | | | SERVICES, CORE | PARK [...] | + + + + + | [facility] | [address] | [place] [address] | | | SERVICES, CORE | [address]DA [...] | + + + + + | [facility] | [address] | [place] [address] | | | CLIFTON JARAMILLO | [address] [...] | | | LABORATORY | | | FAROESE | | | SERVICES, | | | [...] | + + + + + | [facility] | [address] | [place] [address] | | | SERVICES, CORE | [address] | | | + + + + + ORDERS OTHER (03/22/2013 12:00 AM PDT) + + + | Narrative | Performed At | + + + | | | | | | + + + + + | Procedure Note | + + | Lukas Dhaliwal - 04/17/2013 9:42 AM PDT | + + DEANNA DHALIWAL (03/22/2013 12:00 AM PDT) + + + | Narrative | Performed At | + + + | | | | | | + + + + + | Procedure Note | + + | Lukas Dhaliwal - 04/02/2013 8:36 AM PDT | + [...] | | | | | NEEDED, Starting Tu03/24/13 | | | | | | | [...] | | | | | 03/31/13 at 1999, Until | | | | | | [...] | | | | | dose on [facility] 04/02/13 at 1500, | | | [...] | | | | | dose on Sat03/28/13 at 1900, | | AM PDT | [...] | | TWICE DAILY, First dose on Sat | | AM PDT | | | [...] + +--------+-------+---+ | fat emulsion IV infusion | Rate/Dos | 03/31/20 | 250 mL | 9.5 | | | intravenous, EVERY (Once | e Verify | 13 7:37 | | mL/hr | | | per day on Sat), First | | PM PDT | | [...] + +--------+-------+---+ | fat emulsion IV infusion | Rate/Dos | 04/02/20 | 250 mL | 10.4 | | | intravenous, EVERY (Once | e Verify | 13 7:30 | | mL/hr | | | per day on Sat), First | | AM PDT | | | | | dose (after last reorder) on Sat | | | | | | | 04/01/13 at 2100, Until | | | | [...] +---------+ +--------+---+---+ | fat emulsion IV infusion | New Bag | 04/08/20 | 250 mL | | | | intravenous, EVERY (Once | | 13 9:45 | | | | | per day on Sat), First | | PM PDT | | | | | dose on Sat04/06/13 at 2099, | | | | | | | Until Discontinued | | | | | | + +---------+ +--------+---+---+ +---------+ +--------+---+---+ | New Bag | 04/06/20 | 250 mL | | | | | 13 9:16 | | | | | | PM PDT | | | | +---------+ +--------+---+---+ +---+---+ | | | +---+---+ + +---------+ +--------+---+---+ | fat emulsion IV infusion | New Bag | 04/05/20 | 250 mL | | | | intravenous, TPN 2099, 1 dose, | | 13 9:44 | | | | | Starting 04/05/13 at 2100, | | PM PDT | | | | | Until 04/05/13 at 2144 | | | [...] | mg 10 mg, intravenous, ONCE, | | 13 6:21 | | | | | dose, [facility] 03/26/13 at 1815 | | PM PDT | | | | + +---------+ +-------+---+---+ +---+---+ | | | +---+---+ + +---------+ +-------+---+---+ | furosemide (LASIX) injection 20 | New Bag | 03/25/20 | 20 mg | | | | mg 20 mg, intravenous, ONCE, | | 9:06 | | | | | dose, [facility] 03/25/13 at 2115 | | PM PDT | | | | + +---------+ +-------+---+---+ +---+---+ | | | +---+---+ + +---------+ +-------+---+---+ | furosemide (LASIX) injection 20 | New Bag | 03/26/20 | 20 mg | | | | mg 20 mg, intravenous, ONCE, | | 10:41 | | | | | dose, [facility] 03/26/13 at 2300 | | PM PDT | | | | + +---------+ +-------+---+---+ +---+---+ | | | +---+---+ + +---------+ +-------+---+---+ | furosemide (LASIX) injection 20 | New Bag | 03/30/20 | 20 mg | | | | mg 20 mg, intravenous, ONCE, | | 2:40 | | | | | dose, [facility] 03/30/13 at 0315 | | AM PDT | | | | + +---------+ +-------+---+---+ +---+---+ | | | +---+---+ + +---------+ +-------+---+---+ | furosemide (LASIX) injection 20 | New Bag | 03/30/20 | 20 mg | | | | mg 20 mg, intravenous, ONCE, 9:48 | | | | | dose, Sat03/30/13 at 0945 | | AM PDT | [...] PDT | | | | | Starting Sat03/24/13 at 0117, | | | | | | | Until Sat03/24/13 at 0200, | | | | | [...] injection 1 dose, | | | Starting Sat03/24/13 at 0119, | | | Until Sat03/24/13 at 0123 | | + +---+ | [...] +---------+ +------+---+---+ | haloperidol lactate (HALDOL) | New Bag | 04/02/20 | 1 mg | | [...] | | | | | 1736, Until [facility] 04/02/13 at 0757, | | | [...] AM PDT | | | | | [facility] 03/26/13 at 0000, Until | | [...] | | | | | modification) on [facility] 03/26/13 at | | | | [...] PDT | | | | | Until 03/22/13 at 2245 | | | | | | + +---------+ +-------+-------+---+ +---+---+ | | | +---+---+ + + + +-------+-------+---+ | lactated ringers IV 125 mL/hr, | Rate/Dos | 03/22/20 | 125 | 125 | | | intravenous, CONTINUOUS, | e Change | 13 11:03 | mL/hr | mL/hr | | | Starting 03/22/13 at 2300, | | PM PDT | | | | | Until 03/23/13 at 0924 | | | | [...] AM PDT | | | | | 8/14/13 at 2347 | | | | | [...] 13 11:45 | | | | | 03/31/13 at 2330 | | PM PDT | [...] ONCE, 1 dose, Wed | | 13 3:06 | | | [...] | | | DAILY, First dose on Sat03/26/13 | | | | | | | [...] | | | | last modification) on 03/29/13 | | | | | | [...] | | | | | modification) on [facility] 04/09/13 at | | | | [...] | | | | | modification) on 04/09/13 at | | | | | [...] | | | | ONCE, 1 dose, 03/23/13 at 2300 | | PM PDT | [...] | | oral, DAILY, First dose on Sat | | 13 8:45 | capsule | [...] | | | | First dose on [facility] 04/09/13 at | | AM PDT [...] | | | | | 1318, Until Sat04/01/13 at 1133, | | | | | [...] | | | 03/22/13 at 1745, Until Mon | | | | | [...] | omeprazole (PRILOSEC) capsule | Given | 03/26/20 | 20 mg [...] | | | DAILY, First dose on 03/28/13 | | AM PDT | | | | | at 1745, Until Discontinued | | | | | | + +-------+ +-------+---+---+ +-------+ +-------+---+---+ | Given | 03/28/20 | 20 mg | | | | | 13 9:07 | | | | | | PM PDT | | | | +-------+ +-------+---+---+ +---+---+ | | | +---+---+ + +---------+ +------+---+---+ | ondansetron (aka ZOAN) | New Bag | 04/02/20 | 4 [...] | | | | | | dose, Saqib 04/10/13 at 0845 | | | | [...] potassium chloride IV 40 mEq | New | 03/25/20 | 40 mEq | | | | 40 mEq, intravenous, ONCE, 1 | | 13 10:32 | | | | | dose, Joaquin 03/25/13 at 1000 | | AM PDT | | | | + +---------+ +--------+---+---+ +---+---+ | | | +---+---+ + +---------+ +---------+---+---+ | potassium phosphate IV 30 mmol | New Bag | 03/22/20 | 30 mmol | | | | 30 mmol, intravenous, ONCE, 1 | | 13 11:03 | | | | | dose, Aleksandra 03/22/13 at 2230 | | PM PDT | | | | + +---------+ +---------+---+---+ +---+---+ | | | +---+---+ + +---------+ +---------+---+---+ | potassium phosphate IV 30 mmol | New Bag | 03/24/20 | 30 mmol | | | | 30 mmol, intravenous, ONCE, 1 | | 13 6:32 | | | | | doseFartun 03/24/13 at 0545 | | AM PDT | | | | + +---------+ +---------+---+---+ +---+---+ | | | +---+---+ + +---------+ +---------+---+---+ | potassium phosphate IV 30 mmol | New Bag | 03/24/20 | 30 mmol | | | | 30 mmol, intravenous, ONCE, 1 | | 13 9:22 | | | | | dose, Fartun 03/24/13 at 0930 | | AM PDT [...] | | | | | NEEDED, Starting 03/25/13 at | | | | | | [...] mL/hr | | | (ADULT) intravenous, TPN 2100, | | 13 9:39 | | | | | Starting 04/04/13 at 2100, | | PM PDT | | | | | Until Sat04/10/13 at 0920 | | | | | | + +---------+ + + +---+ +---------+ +---+---+---+ | New Bag | 04/08/20 | | | | | | 13 9:45 | | | | | | PM PDT | | | | +---------+ +---+---+---+ | New Bag | 04/07/20 | | | | | | 13 10:10 | | | | | | PM PDT | | | | +---------+ +---+---+---+ +---+---+ | | | +---+---+ + +---------+ + +---+---+ | vancomycin (VANCOCIN) IV | New Bag | 03/29/20 | 1,000 mg | | [...] +---------+ + +---+---+ | New Bag | 03/29/20 | 1,000 mg | | [...] | | | | | reorder) on [facility] 03/26/13 at 2000, | | | | [...]
--- OUTSIDE RECORDS SUMMARY | ~2019-07-11 | XMS | Clinical Summary ---
Demographics + + + | Address | [address] | | | [place] [address] | + + + | Home Phone | | + + + | Preferred Language | Unknown | + + + | Marital Status | | + + + | Latter-Day Affiliation | 1073 | + + + | Race | Unknown | + + + | Ethnic Group | Unknown | + + + Author + + + | Author | [facility] | | | and [place] | + + + | Organization | [facility] | | | [...] Team Providers + +------+ + | Care Drag Out Worker Name | Role | Phone | + [...]
--- OUTSIDE RECORDS SUMMARY | ~2019-07-11 | XMS | Encounter Summary ---
Demographics + + + | Address | [address] [place] [address] | | | [place] [address] | + + + | Home Phone [...] Author + + + | Author | [facility] | + + + | Organization | [facility] | + + + | Address | Unknown | + + + | Phone | Unavailable | + + + Support + + +---------+ + | Name | Relationship | Address | Phone | + + +---------+ + | Bre Amaya | ECON | Unknown | | + + +---------+ + Care Team Providers + +------+ + | Care Balance Bridge Inspector Name | Role | Phone | + +------+ + | Jeb Johnson DO | PCP | | + +------+ + Encounter Details +--------+ + + + + | Date | Type | Department | Care Team | Description | +--------+ + + + + | 03/30/ | Results | Stress | Other, Faculty | | | 2012 | Only | Echocardiography | [phone] | | | | | [address] | | | | | | [place] Mailcode: | | | | | | [id number] Outpatient | | | | | | Clinic Building | | | | | | [place], [place] | | | | | | [address] | | | | | | [phone] | | | +--------+ + + + [...] DEPT OF | [address] | [place], [place] | | | CARDIOLOGY | [address] | [address] | | + + + + + documented in this encounter Visit Diagnoses Not on filedocumented in this encounter"
--- OUTSIDE RECORDS SUMMARY | ~2019-07-11 | XMS | Encounter Summary ---
Demographics + + + | Address | [address] [place] [address] | | | [place] [address] | + + + | Home Phone | | + + + | Preferred Language | Unknown | + + + | Marital Status | Single | + + + | Mormonism Affiliation | NON | + + + | Race | White | + + + | Ethnic Group | Not or | + + + Author + + + | Author | [facility] | + + + | Organization | [facility] | + + + | Address | Unknown | + + + | Phone | Unavailable | + + + Support + + +---------+ + | Name | Relationship | Address | Phone | + + +---------+ + | Bre Amaya | ECON | Unknown | | + + +---------+ + Care Team Providers + +------+ + | Care Film Editor Supervisor Name | Role | Phone | + [...] Shakeel | | | | | | [place] | [address] | | | | | | [address] | Building | | | | | | Phone: | [place], [place] | | | | | | [phone] | [address] | | | | | | Fax: | Phone: | | | | | | [phone] | [phone] | +--------+--------+ + + + + Diagnostic [...] Mailcode: | | | | | | [place], [place] | [address] [facility] | | | | | | [address] | [facility] | | | | | | | [place], [place] | | | | | | | [address] | | | | | | | Phone: | | | | | | | [phone] | | | | | | | Fax: | | | | | | | [phone] | +--------+--------+ + + + + Diagnostic [...] Mailcode: | | | | | | [place], [place] | [address] [facility] | | | | | | [address] [facility] | | | | | | Phone: | [place], [place] | | | | | | [phone] | [address] | | | | | | Fax: | Phone: | | | | | | [phone] | [phone] | | | | | | | Fax: | | | | | | | [phone] | +--------+--------+ + + + + Reason [...] [address] | MD [address] [facility] | | | | | [place], [place] | [address] | | | 04/11/ | | [address] | [place], [place] | | | 2012 | | [phone] | [address] | | | | | | [phone] | | | | | | | | | | | | Gallo Dubon MD | | | | | | [address] | | | | | | [address] [place], | | | | | | [place] [address] | | | | | | [phone] | | | | | | | [...] might be different fr om the original. [facility] DEPARTMENT OF SURGERY EMERGENCY GENERAL SURGERY Division of Trauma and Critical Care INPATIENT PROVIDER DISCHARGE SUMMARY Note Date: 04/10/2013 Admission Date: 03/22/2013 JDUIE LAMBERT, Discharge Date: 11 Apr 2013 PCP: Jeb Johnson DO Attending Physician: Gallo Dubon MD Author: JULISSA CORTES MD Hospital Course: Judie Lambert is an 83 y/o female who [facility] with abdomin al pain with known prior history of diverticulosis. She was found to have a LLQ mass and WBC count of 17,000. CT demonstrated reji diverticular abscess. She was started on meropenem, L evaquin and flagyl, and receive 7 liters fluid resuscitation. She was also noted with UA + > 100,000 Lactose instructional support specialist. She decompensated requiring levophed for blood pressure thus she was transferred to [facility] for higher level of care [...] failure with no prior his tory of [place] or heart failure. Echo demonstrated EF 30-35%. [...] physician for a referral to a local turn out for treatment of n ewly-diagnosed congestive heart failure. Jeb [address] [address] Discharging Provider: JULISSA CORTES MD Attending Physician: [...] might be different fr om the original. [facility] DEPARTMENT OF SURGERY EMERGENCY GENERAL SURGERY Division [...] other applicable data points. Please refer to STARFACE for this information . PHYSICAL EXAM: LAST [...] edema ASSESSMENT, MEDICAL DECISION MAKING AND PLAN: JUDEI LAMBERT- 83 y.o. y/o female admitted on [...] omeprazole Glycemic control: SSI Activity/PT/OT: Up ad cahcha, PT/OT Yogurt: hx of Abx, [place] [phone] pager number [facility] [address] [facility] [phone] Christiano Darden MD - 0 04/10/2013 7:46 AM PDT [facility] DEPARTMENT OF SURGERY EMERGENCY GENERAL SURGERY Division of Trauma and Critical Care Attending Physician: Gallo uDbon MD Progress Note Note Date: 04/09/2013 Admission [...] other applicable data points. Please refer to STARFACE for this information . PHYSICAL EXAM: LAST [...] Cortes MD General Surgery Resident, PGY1 Pager [phone] [facility] [address] [address] Julissa Amato MD - 04/09/2013 7:42 AM PDT [facility] DEPARTMENT OF SURGERY EMERGENCY [...] other applicable data points. Please refer to [facility] for this information . PHYSICAL EXAM: [...] Cortes MD General Surgery Resident, PGY1 Pager [phone] [facility] [address] [facility] [place] [place] [address] oops, Julissa Lam MD - 0 04/08/2013 9:24 AM PDT [facility] DEPARTMENT OF SURGERY EMERGENCY GENERAL SURGERY Division of Trauma and Critical Care Attending Physician: Gallo Dubon MD Progress Note Note Date: 04/08/2013 Admission Date: 03/22/2013 JUDIE LAMBERT, [id number] Hospital Day #17 INTERVAL EVENTS/SUBJECTIVE Continues on [...] Cortes MD General Surgery Resident, PGY1 Pager [phone] Carolynn Driver - 013 3:28 PM PDTChaplain Note: Asked by RN to check in on pt since she is having a hard time being here for so long and so far away. She really didn't want to interact with me today, s he might be tired. She has no particular spiritual identification. Cooker Process Cheese will stop in f or friendly visit later and see if she is interested. Rotary Drier Operatorgregory Kinsey M.Div., [facility] [phone] Pager #[phone] On-call pager #[phone] Julissa Amato MD - 6:00 AM PDT [facility] DEPARTMENT OF SURGERY EMERGENCY GENERAL SURGERY Division of Trauma and Critical Care Attending Physician: Gallo Dubon MD Progress Note Note Date: 04/06/2013 Admission Date: 03/22/2013 JUDIE LAMBERT, Hospital Day #15 ID: Judie Lambert is an 83 y/o lady who present [facility] with abdomin al pain with known prior history of diverticulosis. She was found to have a LLQ mass and WB C count of 17,000. CT demonstrated reji diverticular abscess. She was started on meropenem , Levaquin and flagyl, and receive 7 liters fluid resuscitation. She was also noted with UA + >100,000 Lactose instructional support specialist. She decompensated requiring levophed for blood pressure thus she was transferred to [facility] for higher level of care [...] failure with no prior hi story of [place] or heart failure. Echo demonstrated EF 30-35%. [...] other applicable data points. Please refer to [facility] for this information . PHYSICAL EXAM: [...] Abx, [place] [phone] pager number [facility] [address] [place] [facility] [place] [place] [address] randon Leary MD - 0 04/06/2013 9:44 AM PDT Gastroenterology Follow-Up Note Date: 04/06/2013 IMPRESSION/PLAN: Ms. Lambert is a 83 year-old woman with a history of CAD, CHF, COPD, and diverticulosis who pr esented with abdominal pain to an outside hospital and found to have a diverticular abscess with development of septic shock requiring transfer to [facility], now s/p IR-guided pelvic drain [...] questions. Brandon Leary MD Fellow, Gastroenterology Pager: [phone] INTERVAL HISTORY: Ms. Lambert reports feeling well [...] N P - 04/06/2013 8:51 AM PDT [facility] DEPARTMENT OF SURGERY EMERGENCY GENERAL SURGERY Division of Trauma and Critical Care Attending Physician: Gallo Dubon MD Progress Note Note Date: 04/06/2013 Admission Date: 03/22/2013 JUDIE LAMBERT, Hospital Day #15 On 03/22/13, Judie Lambert is an 83 y/o lady who present [facility] ED [facility] with abdominal pain with known prior history of diverticulosis. She was found to have a LLQ mass and WBC count of 17,000. CT demonstrated reji diverticular abscess. She was started on namrata penem, Levaquin and flagyl, and receive 7 liters fluid resuscitation. She was also noted wit h UA + >100,000 Lactose instructional support specialist. She decompensated requiring levophed for blood pressure t hus she was transferred to [facility] ICU for higher level of [...] failure with no prior his tory of [place] or heart failure. Echo demonstrated EF 30-35%. [...] other applicable data points. Please refer to [facility] for this information . PHYSICAL EXAM: [...] Abx, [place] [phone] pager number [facility] [address] [address] randon Leary M D - 04/05/2013 1:42 PM PDT Gastroenterology Follow-Up Note Date: 04/05/2013 IMPRESSION/PLAN: Ms. Lambert is a 83 year-old woman with a history of CAD, CHF, COPD, and diverticulosis who pr esented with abdominal pain to an outside hospital and found to have a diverticular abscess with development of septic shock requiring transfer to [facility], now s/p IR-guided pelvic drain [...] Workman. Brandon Leary MD Fellow, Gastroenterology Pager: [phone] INTERVAL HISTORY: Ms. Lambert reports feeling well [...] oopsJulissa MD - 04/05/2013 8:12 AM PDT [facility] DEPARTMENT OF SURGERY EMERGENCY GENERAL SURGERY Division [...] other applicable data points. Please refer to STARFACE for this information . PHYSICAL EXAM: LAST [...] Cortes MD General Surgery Resident, PGY1 Pager [phone] [facility] [facility] [place] [address] Julissa Amato MD - 04/04/2013 11:04 AM PDT [facility] DEPARTMENT OF SURGERY EMERGENCY GENERAL SURGERY Division [...] other applicable data points. Please refer to [facility] for this information . PHYSICAL EXAM: [...] Cortes MD General Surgery Resident, PGY1 Pager [phone] [facility] [address] [facility] [place] [address] Lee Estes M D - 04/04/2013 9:54 [...] Bustillo MD - 04/03/2013 7:26 AM PDT [facility] DEPARTMENT OF SURGERY EMERGENCY GENERAL SURGERY Division [...] other applicable data points. Please refer to [facility] for this information . PHYSICAL EXAM: [...] ABX on Probiotics: [place] [phone] pager number [facility] A [address] [place] [facility] [place] [address] Jose Tiwari MD - 04/02/2013 9:29 AM PDTI was present and rounded with the [employer] today. I interviewed and exam ined the patient. I reviewed the history, as documented today. I agree with the [employer]'s asses sment and plan. Safe to transfer. Pt stable Mike Melol MD FACS Trauma/Critical Care/ Emergency General Surgery [...] M D - 04/02/2013 5:09 AM PDT [facility] DEPARTMENT OF SURGERY EMERGENCY GENERAL [...] other applicable data points. Please refer to STARFACE for this information . Lab Results Component [...] to regular [place] [phone] [facility] [address] [facility] [place] [facility] Gregory Granado MD - 04/01/2013 11:20 AM PDTICU Attending: I saw and examined Judie Lambert ([id number]) with Claire Donahue PA-C on 04/01/13 and [...] documented by kirby MOTTA. Gregory Young MD Strategic Development Manager Trauma, Critical Care, Acute Care Surgery amKaty [...] diuretics in the morning. Jacoby An MD Application Helper Pager [phone] Meredith Villareal MD - 04/01/2013 4:07 AM PDTI saw and evaluated the patient. I agree with the findings and the plan of care as documented in the resident s note. MEREDITH STEVEN MD Katrin Caal M D - 04/01/2013 4:07 AM PDT [facility] DEPARTMENT OF SURGERY EMERGENCY GENERAL [...] other applicable data points. Please refer to STARFACE for this information . Lab Results Component [...] continue ICU [place] [phone] [facility] [address] [place] [facility] [place] [address] Gavi Cortes PA-C - 04/01/2013 12:00 AM [...] Attending: I saw and examined Judie Lambert ([id number]) with Claire Donahue PA-C on 03/31/13 and [...] of time documented by Jai Young MD Strategic Development Manager Trauma, Critical Care, Acute Care Surgery Meredith Villareal MD - 03/31/2013 2:27 AM PDT [facility] DEPARTMENT OF SURGERY EMERGENCY GENERAL SURGERY Division [...] other applicable data points. Please refer to STARFACE for this information . Lab Results Component [...] continue ICU [place] [phone] [facility] [address] [facility] [place] [facility] I saw and evaluated the patient. I [...] with questions or concerns. CLEVELAND ORTIZ PA-C [phone] Russ Fournier - 03/30/2013 10:53 AM PDTTransthoracic [...] TPN, will discuss volumes and lytes with cnc programmer 9. Hyperglycemia controlled with insulin in TPN [...] Spears MD - 03/30/2013 2:04 AM PDT [facility] DEPARTMENT OF SURGERY EMERGENCY GENERAL SURGERY Division [...] other applicable data points. Please refer to [facility] for this information . Lab Results [...] ASSESSMENT, MEDICAL DECISION MAKING AND PLAN: Ms. Lambret is a 83F with intramural diverticular abscess [...] continue ICU care [place]IN [place]UNG [place] Pg [phone] [facility] [address] [facility] [place] [address] sac Paredes MD - 03/29/2013 3:18 PM [...] LETTY FRIEND MD General Surgery, R2 Pager [phone] SICU Resident Pager [phone] I was present with the resident during the history and exam. I discussed the case with the resident and agree with the findings and plan as documented in the resident s note. ISAC PAREDES MD [facility] [address] [address] [phone] Sharmaine Spears MD - 03/29/2013 6:26 AM [...] Cultures: No new cultures LABS: Reviewed in [facility] Dr. Dubon is the attending of record for this patient encounter. SHARMAINE HUNTER MD Surgery Resident, R2 Diagnoses: [id number] Intestinal diverticular abscess Gregory Granado MD - 10:46 AM PDTICU Attending: I saw and examined Judie Lambert ([id number]) with the residents on 03/28/13 and agree [...] monitoring of respiratory status. Gregory Young MD Strategic Development Manager Trauma, Critical Care, Acute Care Surgery lemente [...] Robert MD - 03/28/2013 3:32 AM PDT [facility] DEPARTMENT OF SURGERY EMERGENCY GENERAL SURGERY Division [...] other applicable data points. Please refer to [facility] for this information . PHYSICAL EXAM: [...] Cultures pending. KATRIN YEUNG MD General Surgery [address] & [facility] A [address] [facility] [place] [facility] Sharmaine Spears MD - 0 03/27/2013 2:24 [...] 1 Packet, 1 Pac ket, Oral, BID, Jio Andre MD, 1 Packet at 03/26/132049 prochlorperazine [...] SHARMAINE HUNTER MD Surgery Resident, R2 Diagnoses: [id number] Intestinal diverticular abscess Sharmaine Spears MD - 6:36 PM PDTCalled to patient room by R1. member of technical staff noted that patient desaturated t o the [...] Dubon MD - 03/26/2013 7:18 AM PDT [facility] DEPARTMENT OF SURGERY EMERGENCY GENERAL SURGERY Division [...] other applicable data points. Please refer to STARFACE for this information . PHYSICAL EXAM: LAST [...] ABX on Probiotics: Lactobacillus JOI ANDRE MD [facility] [address] [place] [facility] [place] [address] STAFF: I personally interviewed the patient, performed [...] denies cardiac issues but hx significant for [place] and AAA. Neuro: Oriented to person and [...] acute changes noted Nathen Horne MD, EM [id number] signed by Nathen Horne MD at 03/25/2013 10:11 PM PDTK Joi santana MD - 03/25/2013 8:17 AM PDTFormatting of this note might be different f rom the original. [facility] DEPARTMENT OF SURGERY EMERGENCY GENERAL [...] other applicable data points. Please refer to STARFACE for this information . PHYSICAL EXAM: LAST [...] ABX on Probiotics: Lactobacillus JOI ANDRE MD [facility] [address] [place] [address] Cleveland Dowling PA-C - 03/24/2013 12:05 PM [...] with questions or concerns. CLEVELAND ORTIZ PA-C [id number] Liliana Tirado MD - 03/24/2013 8:46 AM [...] expiratory wheezing, good saturations. LILIANA FERNANDEZ MD [id number] Clemente Guillen MD - 03/24/2013 8:46 AM [...] M D - 03/24/2013 7:09 AM PDT [facility] DEPARTMENT OF SURGERY Daily Progress Note PROGRESS NOTE: Attending Physician: Meredith Steven MD 03/24/2013 Subjective/Overnight Events: - agitated and delirious overnight - given ativan and haldol - off norepi and BP stable - drain output 20cc MEDICATIONS: Reviewed in [facility] VITAL SIGNS: Refer to [facility] Intake/Output Summary (Last 24 hours) at [...] to PO DVT prophy: lovenox Dispo to lawsno today - may need sitter at night Discussed with Dr. Dubon on EGS rounds. Devon Dove MD Surgery, R3 Diagnoses: [id number] Intestinal diverticular abscess This assessment and plan [...] separately billabl e procedures. LILIANA FERNANDEZ MD [id number] aub, Clemente Mitchell MD - 03/23/2013 11:01 [...] -continue to assess need for surgery vs. rn long term care drain placement #Agitation/delerium: understands she was disoriented [...] NSR. -trial duoneb -check trops given hx [place] -20mg IV Lasix now for diuresis #Hypotension: [...] R hip replacement in 2007 with postoperative [place] which was treated medically . At baseline [...] had a similar conversation with he r hbargavi Graff (with whom the patient lives) who [...] colostomy. This was discussed with Dr. Steven, [facility] staff. KHAI DASH MD documented in [...] [facility] | [address] | [place], [place] | | | BREANNA EMERY OF CARE | [facility] | [address] | | | TESTS | | | [...] [facility] | [address] | [place], [place] | | | BREANNA EMERY OF [place] | [address] | [address] | | | TESTS | | | [...] [place] | [address] | [place], [place] | | | BREANNA EMERY OF CARE | [address] | [address] | | | TESTS | | | [...] - [place] | [address] | [place], [place] | | | BREANNA EMERY OF CARE | [facility] | [address] | | | TESTS | | | [...] [place] | [address] | [place], [place] | | | BREANNA EMERY OF [place] | [address] | [address] | | | TESTS | | | [...] [facility] | [address] | [place] [address] | | | SERVICES, CORE | [address] [...] | | | LABORATORY | | | IRAQI | | | SERVICES, | | | [...] | + + + + + | [facility] | [address] [facility] | [place] [address] | | | [facility] | [address] | | | + [...] | + + + + + | [facility] | [address] | [place] [address] | | | SERVICES, CORE | [address] | | | + + + + + MAGNESIUM, PLASMA (04/10/2013 3:40 AM PDT) + +-------+ + + + | Component | Value | Ref Range | Performed | Pathologist | | | | | At | Signature | + +-------+ + + + | MAGNESIUM,P | 2.2 | 1.8 - 2.5 mg/dL | [facility] | | | LASMA | | | [...] | + + + + + | [facility] | [address] [facility] | [place] [address] | | | SERVICES, CORE | PARK [...] [place] | [address] | [place], [place] | | | BREANNA EMERY OF [place] | [facility] | [address] | | | TESTS | | | [...] [place] | [address] | [place], [place] | | | BREANNA EMERY OF CARE | [facility] | [address] | | | TESTS | | | [...] (H) | 60 - 99 mg/dL | [facility] - | | | GLUCOSE, [...] [facility] | [address] | [place], [place] | | | RUPERT POINT OF CARE | [address] | [address] | | | TESTS | | | [...] RUGGI[place] | [address] | [place], [place] | | | BREANNA EMERY OF [place] | [facility] | [address] | | | TESTS | | | [...] [facility] | [address] | [place] [address] | | | SERVICES, CORE | PARK [...] | + + + + + | [facility] | [address] [facility] | [place] [address] | | | SERVICES, [facility] | [address] | | | + [...] | | | LABORATORY | | | IRAQI | | | SERVICES, | | | [...] [facility] | [address] | [place] [address] | | | SERVICES, CORE | PARK [...] | + + + + + | [facility] | [address] [facility] | [place] [address] | | | SERVICES, CORE | [address] [...] [facility] | [address] | [place] [address] | | | [place] | [address] [...] [facility] | [address] | [place], [place] | | | BREANNA EMERY OF CARE | [address] | [address] | | | TESTS | | | [...] (H) | 60 - 99 mg/dL | [facility] - | | | GLUCOSE, [...] RUGGI[place] | [address] | [place], [place] | | | RUPERT POINT OF CARE | [address] | [address] | | | TESTS | | | [...] [place] | [address] | [place], [place] | | | BERANNA EMERY OF CARE | [address] | [address] | | | TESTS | | | [...] (H) | 60 - 99 mg/dL | [facility] - | | | GLUCOSE, [...] [facility] | [address] | [place], [place] | | | BREANNA EMERY OF [facility] | [address] | [address] | | | TESTS | | | [...] | + + + + + | [facility] | [address] | [place] [address] | | | [place] | [address] [...] [facility] | [address] | [place] [id number] | | | SERVICES, CORE | [address] [...] | | | LABORATORY | | | IRAQI | | | SERVICES, | | | [...] Information: <60 mL/min/1.73 sq m | SERVICES, [facility] | | Chronic Kidney Disease <15 mL/min/1.73 [...] | + + + + + | [facility] | [address] | [place] [address] | | | [facility] | [address] | | | + [...] | + + + + + | [facility] | [address] | [place] [address] | | | SERVICES, CORE | PARK [...] | + + + + + | [facility] | [address] | [place] [address] | | | SERVICES, CORE | PARK [...] [place] | [address] | [place], [place] | | | BREANNA EMERY OF [place] | [address] | [address] | | | TESTS | | | [...] - [facility] | [address] | [place], [place] | | | BREANNA EMERY OF CARE | [facility] | [address] | | | TESTS | | | [...] (H) | 60 - 99 mg/dL | [facility] - | | | GLUCOSE, [...] RUGGIERO | [address] | [place], [place] | | | BREANNA EMEYR OF CARE | [facility] | [address] | | | TESTS | | | [...] [place] | [address] | [place], [place] | | | BREANNA EMERY OF [place] | [address] | [address] | | | TESTS | | | [...] - [facility] | [address] | [place], [place] | | | [place] POINT OF CARE | [address] | [address] | | | TESTS | | | [...] | + + + + + | [facility] | [address] | [place] [address] | | | SERVICES, CORE | [address] | | | + + + + + PHOSPHORUS, PLASMA (04/07/2013 3:27 AM PDT) + +-------+ + + + | Component | Value | Ref Range | Performed | Pathologist | | | | | At | Signature | + +-------+ + + + | PHOSPHORUS, | 3.1 | 2.4 - 4.7 mg/dL | [facility] | | | PLASMA | | | [...] | + + + + + | [facility] | [address] [facility] | [place] [address] | | | SERVICES, CORE | PARK [...] | | | LABORATORY | | | IRAQI | | | SERVICES, | | | [...] ANION GAP | 7 | mmol/L | [facility] | | | | | [...] | + + + + + | [facility] | [address] [facility] | [place] [address] | | | CLIFTON JARAMILLO | GERDA [...] [facility] | [address] | [place] [address] | | | SERVICES, CORE | GERDA [...] | + + + + + | [facility] | [address] | [place] [address] | | | SERVICES, CORE | GERDA [...] (H) | 60 - 99 mg/dL | [facility] - | | | GLUCOSE, [...] + + + | CATERINA RU[facility] | [address] | [place], [place] | | | BREANNA EMERY OF [place] | [address] | [address] | | | TESTS | | | [...] MARQUAM | [address] | [place], [place] | | | BREANNA EMERY OF CARE | [address] | [address] | | | TESTS | | | [...] RUGGIERO | [address] | [place] | | | [facility] OF [facility] | [address] | [address] | | | TESTS | | | [...] (H) | 60 - 99 mg/dL | [facility] - | | | GLUCOSE, [...] RUGGIERO | [address] | [place], [place] | | | RUPERT POINT OF CARE | [facility] | [address] | | | TESTS | | | [...] [facility] | [address] | [place] [address] | | | SERVICES, CORE | GERDA [...] | + + + + + | [facility] | [address] | [place] [address] | | | SERVICES, CORE | PARK [...] | | | LABORATORY | | | IRAQI | | | SERVICES, | | | [...] the MDRD equation recommended by the | [facility] | | National Kidney Disease [...] | + + + + + | [facility] | [address] [facility] | [place] [address] | | | SERVICES, [facility] | [address] | | | + [...] [facility] | [address] | [place] [address] | | | SERVICES, CORE | [address] | | | + + + + + MAGNESIUM, PLASMA (04/06/2013 4:36 AM PDT) + +-------+ + + + | Component | Value | Ref Range | Performed | Pathologist | | | | | At | Signature | + +-------+ + + + | MAGNESIUM,P | 2.4 | 1.8 - 2.5 mg/dL | [facility] | | | LASMA | | | [...] | + + + + + | [employer] [facility] | [address] | [place] [address] | | | SERVICES, CORE | GERDA [...] DAWNAAM | [address] | [place] | | | BREANNA EMERY OF CARE | [address] | [address] | | | TESTS | | | [...] MARQUAM | [address] | [place], [place] | | | BREANNA EMERY OF CARE | [address] | [address] | | | TESTS | | | [...] RUGGIERO | [address] | [place], [place] | | | BREANNA EMERY OF CARE | [address] | [address] | | | TESTS | | | [...] DAWNAAM | [address] | [place], [place] | | | BREANNA EMERY OF CARE | [address] | [address] | | | TESTS | | | [...] + + | [facility] | [address] [facility] | [place] [address] | | | SERVICES, CORE | PARK [...] | | | LABORATORY | | | IRAQI | | | SERVICES, | | | [...] [facility] | [address] | [place] [address] | | | SERVICES, CORE | PARK [...] [facility] | [address] | [place] [address] | | | SERVICES, CORE | PARK [...] | + + + + + | [facility] | [address] | [place] [address] | | | ELLA, CLIFTON | GERDA [...] [facility] | [address] | [place] [address] | | | SERVICES, CORE | PARK [...] | | | LABORATORY | | | IRAQI | | | SERVICES, | | | [...] | + + + + + | [facility] | [address] [facility] | [place] [address] | | | ELLA, CL[place]ON | GERDA [...] BAHMAN | [address] | [place] | | | [facility] OF [facility] | [address] | [address] | | | TESTS | | | [...] | | + +---------+ + + | [facility] DEPARTMENT OF | | | [...] BAHMAN | [address] | [place] | | | BREANNA EMERY OF CARE | [address] | [address] | | | TESTS | | | [...] DAWNAAM | [address] | [place] | | | BREANNA EMERY OF [place] | [facility] | [address] | | | TESTS | | | [...] (H) | 60 - 99 mg/dL | [facility] - | | | GLUCOSE, [...] RUGGIERO | [address] | [place], [place] | | | RUPERT POINT OF CARE | [address] | [address] | | | TESTS | | | [...] | + + + + + | [facility] | [address] | [place] [address] | | | SERVICES, CORE | PARK [...] | | | LABORATORY | | | IRAQI | | | SERVICES, | | | [...] | + + + + + | [facility] | [address] | [place] [address] | | | SERVICES, CORE | GERDA [...] [facility] | [address] | [place] [address] | | | SERVICES, CORE | PARK [...] | + + + + + | [facility] | [address] | [place] [address] | | | ELLA, CL[place]ON | PARK [...] | + + + + + | [facility] | [address] [facility] | [place] [address] | | | SERVICES, CORE | GERDA [...] | | | LABORATORY | | | IRAQI | | | SERVICES, | | | [...] | + + + + + | [facility] | [address] | [place] [address] | | | SERVICES, CORE | GERDA [...] (H) | 60 - 99 mg/dL | [facility] - | | | GLUCOSE, | | [...] RUGGIERO | [address] | [place], [place] | | | BREANNA EMERY OF CARE | [address] | [address] | | | TESTS | | | [...] MARQUAM | [address] | [place], [place] | | | BREANNA EMERY OF CARE | [address] | [address] | | | TESTS | | | [...] | | + +---------+ + + | [facility] DEPARTMENT OF | | | [...] (H) | 60 - 99 mg/dL | [facility] - | | | GLUCOSE, [...] RUGGIERO | [address] | [place], [place] | | | RUPERT POINT OF CARE | [address] | [address] | | | TESTS | | | [...] BAHMAN | [address] | [place], [place] | | | BREANNA EMERY OF [facility] | [address] | [address] | | | TESTS | | | [...] | + + + + + | [facility] | [address] | [place] [address] | | | CLIFTON JARAMILLO | PARK [...] | | | LABORATORY | | | IRAQI | | | SERVICES, | | | [...] ANION GAP | 6 | mmol/L | [facility] | | | | | [...] | + + + + + | [facility] | [address] [facility] | [place] [address] | | | SERVICES, CORE | GERDA [...] [facility] | [address] | [place] [address] | | | SERVICES, CORE | PARK [...] [facility] | [address] | [place] [address] | | | SERVICES, CORE | PARK [...] | + + + + + | [facility] | [address] | [place] [address] | | | SERVICES, CORE | GERDA [...] | | | LABORATORY | | | IRAQI | | | SERVICES, | | | [...] | + + + + + | [facility] | [address] | [place] [address] | | | SERVICES, CORE | GERDA [...] + + + | CATER[facility] RUGGIERO | [address] | [place], [place] | | | RUPERT POINT OF CARE | [address] | [address] | | | TESTS | | | [...] MARQUAM | [address] | [place], [place] | | | RUPERT POINT OF CARE | [address] | [address] | | | TESTS | | | [...] | | + +---------+ + + | [facility] DEPARTMENT OF | | | [...] DAWNAAM | [address] | [place] | | | BREANNA EMERY OF CARE | [address] | [address] | | | TESTS | | | [...] BAHMAN | [address] | [place] | | | BREANNA EMERY OF [facility] | [address] | [address] | | | TESTS | | | [...] | + + + + + | [facility] | [address] | [place] [address] | | | SERVICES, CORE | GERDA [...] | | | LABORATORY | | | IRAQI | | | SERVICES, | | | [...] | + + + + + | [facility] | [address] | [place] [address] | | | SERVICES, CORE | PARK [...] | + + + + + | [facility] | [address] [facility] | [place] [address] | | | SERVICES, CORE [...] | + + + + + | [facility] | [address] | [place] [address] | | | ELLA, CORE | [address] | | | + + + + + MAGNESIUM, PLASMA (04/02/2013 2:04 AM PDT) + +-------+ + + + | Component | Value | Ref Range | Performed | Pathologist | | | | | At | Signature | + +-------+ + + + | MAGNESIUM,P | 2.2 | 1.8 - 2.5 mg/dL | [facility] | | | [facility] | | | [...] | + + + + + | [facility] | [address] | [place] [address] | | | SERVICES, CORE | PARK [...] | | | LABORATORY | | | IRAQI | | | SERVICES, | | | [...] the MDRD equation recommended by the | [facility] | | National Kidney Disease [...] | + + + + + | [facility] | [address] | [place] [address] | | | SERVICES, CORE | GERDA [...] (H) | 60 - 99 mg/dL | [facility] - | | | GLUCOSE, [...] RUGGIERO | [address] | [place], [place] | | | BREANNA EMERY OF [facility] | [facility] | [address] | | | TESTS | | | [...] BAHMAN | [address] | [place], [place] | | | BREANNA EMERY OF [place] | [address] | [address] | | | TESTS | | | [...] BAHMAN | [address] | [place] | | | RUPERT POINT OF [facility] | [address] | [address] | | | TESTS | | | [...] | | | LABORATORY | | | IRAQI | | | SERVICES, | | | [...] [facility] | [address] | [place] [address] | | | SERVICES, CORE | PARK [...] + + | [facility] | [address] [facility] | [place] [address] | | | SERVICES, CORE | GERDA [...] | + + + + + | [facility] | [address] | [place] [address] | | | ELLA, CLIFTON | PARK [...] [facility] | [address] | [place] [address] | | | SERVICES, CORE | [address] | | | + + + + + MAGNESIUM, PLASMA (04/01/2013 2:13 AM PDT) + +-------+ + + + | Component | Value | Ref Range | Performed | Pathologist | | | | | At | Signature | + +-------+ + + + | MAGNESIUM,P | 2.1 | 1.8 - 2.5 mg/dL | [facility] | | | LASMA | [...] [facility] | [address] | [place] [address] | | | SERVICES, CORE | PARK [...] | | | LABORATORY | | | IRAQI | | | SERVICES, | | | [...] the MDRD equation recommended by the | [facility] | | National Kidney Disease [...] [facility] | [address] | [place] [address] | | | SERVICES, CORE | PARK [...] | + + + + + | [facility] | [address] [facility] | [place] [address] | | | SERVICES, [place] | GERDA [...] [facility] | [address] | [place] [address] | | | SERVICES, CORE | [address] | | | + + + + + LACTIC ACID (04/01/2013 12:36 AM PDT) + +-------+ + + + | Component | Value | Ref Range | Performed | Pathologist | | | | | At | Signature | + +-------+ + + + | LACTATE | 0.7 | mmol/L | [facility] | | | | | | LABORATORY [...] [facility] | [address] | [place] [address] | | | CLIFTON JARAMILLO | GERDA [...] - BAHMAN | [address] | [place], [place] | | | RUPERT POINT OF [facility] | [address] | [address] | | | TESTS | | | [...] | + + + + + | [facility] | [address] | [place] [address] | | | SERVICES, CORE | PARK [...] | | | LABORATORY | | | IRAQI | | | SERVICES, | | | [...] | + + + + + | [facility] | [address] | [place] [address] | | | SERVICES, CORE | GERDA [...] (H) | 60 - 99 mg/dL | [facility] - | | | GLUCOSE, [...] RUGGIERO | [address] | [place], [place] | | | RUPERT POINT OF CARE | [address] | [address] | | | TESTS | | | [...] | + + + + + | [facility] | [address] [facility] | [place] [address] | | | SERVICES, CORE | PARK [...] (H) | 60 - 99 mg/dL | [facility] - | | | GLUCOSE, [...] RUGGIERO | [address] | [place], [place] | | | BREANNA EMERY OF [place] | [facility] | [address] | | | TESTS | | | | + + + + + X-RAY PORTABLE CHEST 1 VIEW (03/31/2013 10:40 AM PDT) + + + + + + | Component | Value | Ref Range | Performed | Pathologist | | | | | At | Signature | + + + + + + | X-RAY | EXAM: IN CHEST 1 VIEW | | | | [...] | | + +---------+ + + | [facility] DEPARTMENT OF | | | [...] MARQUAM | [address] | [place], [place] | | | RUPERT POINT OF CARE | [address] | [address] | | | TESTS | | | [...] [facility] | [address] | [place] [address] | | | SERVICES, CORE | PARK [...] | + + + + + | [facility] | [address] | [place] [address] | | | SERVICES, CORE | GERDA [...] [facility] | [address] | [place] [address] | | | SERVICES, CORE | GERDA [...] - MARQUAM | [address] | [place] | | | RUPERT POINT OF CARE | [address] | [address] | | | TESTS | | | [...] RUGGIERO | [address] | [place], [place] | | | BREANNA EMERY OF [facility] | [address] | [address] | | | TESTS | | | [...] | | | LABORATORY | | | IRAQI | | | SERVICES, | | | [...] | + + + + + | [facility] | [address] | [place] [address] | | | SERVICES, CORE | [address] | | | + + + + + 12 LEAD ECG (03/30/2013 8:19 PM PDT) + + + + + + | Component | Value | Ref Range | Performed | Pathologist | | | | | At | Signature | + + + + + + | VENTRICULAR | 93 | BPM | [facility] | | | RATE | | [...] | | | | | IVÁN DILLON ([id number]) | | | | | | on 04/01/2013 12:41:47 PM | | | | + + + + + + + + | Specimen | + + | | + + + + + | Narrative | Performed At | + + + | Please click | [facility] | | on view image for the detailed interpretation from Inogen results. | CARDIOLOGY | + + + + + | Procedure Note | + + | Interface, Cardiology Results - 04/01/2013 12:41 PM PDT Please click on view image | | for the detailed interpretation from InNephosity results. | + + + + + + + | Performing | Address | City/State/Zipcode | Phone Number | | Organization | | | | + + + + + | [facility] | [address] | [place], [place] | | | CARDIOLOGY | [address] | [address] | | + + + + + [...] LABORATORY | [address] | [place] [address] | | | SERVICES, CORE | GERDA [...] [facility] | [address] | [place] [address] | | | SERVICES, CORE | PARK [...] [facility] | [address] | [place] [address] | | | SERVICES, CORE | PARK [...] [facility] | [address] | [place] [address] | | | SERVICES, CORE | PARK [...] [facility] | [address] | [place] [address] | | | CLIFTON JARAMILLO | GERDA [...] RUGGIERO | [address] | [place] | | | [place] | [address] | [address] | | | TESTS | | | [...] | | | LABORATORY | | | IRAQI | | | SERVICES, | | | [...] [facility] | [address] | [place] [address] | | | SERVICES, CORE | PARK [...] | + + + + + | [facility] | [address] | [place] [address] | | | SERVICES, CORE | GERDA [...] (H) | 60 - 99 mg/dL | [facility] - | | | GLUCOSE, [...] RUGGIERO | [address] | [place], [place] | | | RUPERT POINT OF CARE | [address] | [address] | | | TESTS | | | [...] | + + + + + | [facility] | [address] | [place] [address] | | | SERVICES, CORE | GERDA [...] [facility] | [address] | [place], [place] | | | THERAPY | [address] | [address] | | + + + + + [...] [facility] | [address] | [place], [place] | | | THERAPY | [address] | [address] | | + + + + + [...] [facility] | [address] | [place], [place] | | | THERAPY | [address] | [address] | | + + + + + [...] [facility] | [address] | [place], [place] | | | THERAPY | [address] | [address] | | + + + + + [...] [facility] | [address] | [place], [place] | | | THERAPY | [address] | [address] | | + + + + + [...] [facility] | [address] | [place], [place] | | | THERAPY | [address] | [address] | | + + + + + X-RAY PORTABLE CHEST 1 VIEW (03/30/2013 1:51 AM PDT) + + + + + + | Component | Value | Ref Range | Performed | Pathologist | | | | | At | Signature | + + + + + + | X-RAY | EXAM: IN CHEST 1 VIEW | | | | [...] | | + +---------+ + + | [facility] DEPARTMENT OF | | | [...] [facility] | [address] | [place] [address] | | | CLIFTON JARAMILLO | GERDA [...] [facility] | [address] | [place] [address] | | | SERVICES, CORE | PARK [...] | + + + + + | [facility] | [address] | [place] [address] | | | SERVICES, CORE | PARK [...] [facility] | [address] | [place] [address] | | | SERVICES, CORE | PARK [...] [facility] | [address] | [place] [address] | | | SERVICES, CORE | PARK [...] | | | LABORATORY | | | IRAQI | | | SERVICES, | | | [...] | + + + + + | [facility] | [address] | [place] [address] | | | CLIFTON JARAMILLO | GERDA [...] [facility] | [address] | [place], [place] | | | HILL, POINT OF CARE | [address] | [address] | | | TESTS | | | | + + + + + X-RAY PORTABLE CHEST 1 VIEW (03/29/2013 9:59 PM PDT) + + + + + + | Component | Value | Ref Range | Performed | Pathologist | | | | | At | Signature | + + + + + + | X-RAY | EXAM: IN CHEST 1 VIEW | | | | [...] (H) | 60 - 99 mg/dL | [facility] - | | | GLUCOSE, [...] RUGGIERO | [address] | [place], [place] | | | BREANNA EMERY OF [facility] | [facility] | [address] | | | TESTS | | | [...] | | + +---------+ + + | [facility] DEPARTMENT OF | | | [...] MARQUAM | [address] | [place] | | | BREANNA EMERY OF [place] | [address] | [address] | | | TESTS | | | [...] RUGGIERO | [address] | [place], [place] | | | BREANNA EMERY OF [place] | [address] | [address] | | | TESTS | | | [...] | | | | | AJ WOMACK ([id number]) on | | | | | | 03/29/2013 2:22:51 PM | | | | + + + + + + + + | Specimen | + + | | + + + + + | Narrative | Performed At | + + + | Please click | [facility] | | on view image for the detailed interpretation from Inogen results. | CARDIOLOGY | + + + + + | Procedure Note | + + | Interface, Cardiology Results - 03/29/2013 2:23 PM PDT Please click on view image | | for the detailed interpretation from Inogen results. | + + + + + + + | Performing | Address | City/State/Zipcode | Phone Number | | Organization | | | | + + + + + | [facility] | [address] | [place], [place] | | | CARDIOLOGY | [facility] | [address] | | + + + + + [...] | + + + + + | [facility] | [address] [facility] | [place] [address] | | | CLIFTON JARAMILLO | GERDA [...] [facility] | [address] | [place] [address] | | | SERVICES, [place] | PARK [...] [facility] | [address] | [place] [address] | | | SERVICES, CORE | PARK [...] | | | LABORATORY | | | IRAQI | | | SERVICES, | | | [...] the MDRD equation recommended by the | [facility] | | National Kidney Disease [...] | + + + + + | [facility] | [address] | [place] [address] | | | ELLA, [place] | GERDA [...] (H) | 60 - 99 mg/dL | [facility] - | | | GLUCOSE, [...] [facility] | [address] | [place], [place] | | | BREANNA EMERY OF CARE | [address] | [address] | | | TESTS | | | [...] | + + + + + | [facility] | [address] | [place] [address] | | | SERVICES, CORE | GERDA [...] MARQUAM | [address] | [place], [place] | | | BREANNA EMERY OF CARE | [facility] | [address] | | | TESTS | | | [...] | + + + + + | [facility] | [address] | [place] [address] | | | CL[place] JARAMILLO | GERDA [...] (H) | 60 - 99 mg/dL | [facility] - | | | GLUCOSE, [...] RUGGIERO | [address] | [place], [place] | | | BRAENNA EMERY OF [facility] | [address] | [address] | | | TESTS | | | | + + + + + X-RAY ABD LTD FEEDING TUBE EVAL PORTABLE (03/28/2013 12:41 PM PDT) + + + + + + | Component | Value | Ref Range | Performed | Pathologist | | | | | At | Signature | + + + + + + | X-RAY ABD | EXAM: IN ABD LTD | | | | | [...] + + + | X-RAY | STUDY: IN CHEST 1 VIEW | | | | [...] [facility] | [address] | [place], [place] | | | BREANNA EMERY OF CARE | [address] | [address] | | | TESTS | | | [...] [facility] | [address] | [place] [address] | | | SERVICES, CORE | PARK [...] | + + + + + | [facility] | [address] | [place] [address] | | | SERVICES, CORE | GERDA [...] [facility] | [address] | [place] [address] | | | SERVICES, CORE | PARK [...] | | | LABORATORY | | | IRAQI | | | SERVICES, | | | [...] | + + + + + | [facility] | [address] | [place] [address] | | | SERVICES, CORE | GERDA [...] [facility] | [address] | [place], [place] | | | [facility] | [address] | [address] | | | TESTS | | | [...] [facility] | [address] | [place], [place] | | | [facility] CARE | [address] | [address] | | | TESTS | | | [...] | + + + + + | [facility] | [address] | [place] [address] | | | SERVICES, CORE | GERDA [...] | | + +---------+ + + | [facility] DEPARTMENT OF | | | [...] | | | | | | TECHNIQUE: Flow Specialist imaging | | | | | | [...] | | | | | AJ WOMACK ([id number]) on | | | | | | 03/29/2013 2:10:24 PM | | | | + + + + + + + + | Specimen | + + | | + + + + + | Narrative | Performed At | + + + | Please click | [facility] | | on view image for the detailed interpretation from [employer] results. | CARDIOLOGY | + + + + + | Procedure Note | + + | Interface, Cardiology Results - 03/29/2013 2:10 PM PDT Please click on view image | | for the detailed interpretation from [employer] results. | + + + + + + + | Performing | Address | City/State/Zipcode | Phone Number | | Organization | | | | + + + + + | [facility] | [address] | [place], [place] | | | CARDIOLOGY | [address] | [address] | | + + + + + [...] | + + + + + | [facility] | [address] | [place] [address] | | | CL[place] JARAMILLO | GERDA [...] (H) | 60 - 99 mg/dL | [facility] - | | | GLUCOSE, [...] [facility] | [address] | [place], [place] | | | [facility] CARE | [address] | [address] | | | TESTS | | | [...] [facility] | [address] | [place], [place] | | | BREANNA EMERY OF ESTRELLA | [facility] | [address] | | | TESTS | | | [...] [facility] | [address] | [place] [address] | | | SERVICES, CORE | PARK [...] [facility] | [address] | [place] [address] | | | SERVICES, CORE | PARK [...] | + + + + + | [facility] | [address] | [place] [address] | | | SERVICES, CORE | GERDA [...] | | | LABORATORY | | | IRAQI | | | SERVICES, | | | [...] LABORATORY | [address] | [place] [address] | | | SERVICES, CORE | PARK [...] | + + + + + | [facility] | [address] | [place] [address] | | | SERVICES, CORE | GERDA [...] [facility] | [address] | [place], [place] | | | [facility] [place] | [facility] | [address] | | | TESTS | | | [...] | + + + + + | [facility] | [address] | [place] [address] | | | SERVICES, CORE | [address] | | | + + + + + X-RAY PORTABLE CHEST 1 VIEW (03/26/2013 10:36 PM PDT) + + + + + + | Component | Value | Ref Range | Performed | Pathologist | | | | | At | Signature | + + + + + + | X-RAY | STUDY: IN CHEST 1 VIEW | | | | [...] | + + + + + | [facility] | [address] | [place] [address] | | | SERVICES, CORE | PARK [...] + + + | Please click | [facility] DEPT OF | | on view image for the detailed interpretation from [employer] results. | CARDIOLOGY | + + + + + | Procedure Note | + + | Interface, Cardiology Results - 03/27/2013 11:16 PM PDT Please click on view image | | for the detailed interpretation from [employer] results. | + + + + + + + | Performing | Address | City/State/Zipcode | Phone Number | | Organization | | | | + + + + + | [facility] | [address] | [place], [place] | | | CARDIOLOGY | [address] | [address] | | + + + + + [...] view image for the detailed interpretation from Inogen results. | CARDIOLOGY | + + + + + | Procedure Note | + + | Interface, Cardiology Results - 03/27/2013 11:16 PM PDT Please click on view image | | for the detailed interpretation from InNephosity results. | + + + + + + + | Performing | Address | City/State/Zipcode | Phone Number | | Organization | | | | + + + + + | [facility] | [address] | [place], [place] | | | CARDIOLOGY | [address] | [address] | | + + + + + [...] - [facility] | [address] | [place], [place] | | | [place], POINT OF CARE | [address] | [address] | | | TESTS | | | [...] | + + + + + | [facility] | [address] | [place] [address] | | | SERVICES, [place] | GERDA [...] [facility] | [address] | [place] [address] | | | SERVICES, CORE | PARK [...] [facility] | [address] | [place] [address] | | | SERVICES, CORE | PARK [...] | | | LABORATORY | | | IRAQI | | | SERVICES, | | | [...] the MDRD equation recommended by the | MISU | | National Kidney Disease Education Program. [...] | + + + + + | [facility] | [address] | [place] [address] | | | ELLA, [place] | [address] | | | + + + + + X-RAY PORTABLE CHEST 1 VIEW (03/26/2013 6:10 PM PDT) + + + + + + | Component | Value | Ref Range | Performed | Pathologist | | | | | At | Signature | + + + + + + | X-RAY | STUDY:IN CHEST 1 VIEW | | | | [...] | | + +---------+ + + | [facility] DEPARTMENT OF | | | [...] [facility] | [address] | [place], [place] | | | [facility] [facility] OF [facility] | [address] | [address] | | | TESTS | | | [...] + + | Performing | Address | City/State[facility] | Phone Number | | Organization | [...] | + + + + + | [facility] | [address] | [place] [address] | | | SERVICES, CORE | GERDA [...] (H) | 60 - 99 mg/dL | MISU - | | | GLUCOSE, | | [...] + | [facility] | [address] | [place], [place] | | | RUPERT POINT OF CARE | [address] | [address] | | | TESTS | | | [...] | | | POC | | | BREANAN EMERY | | | | | | [...] [facility] | [address] | [place], [place] | | | R[place] POINT OF CARE | [address] | [address] | | | TESTS | | | [...] [facility] | [address] | [place] [address] | | | SERVICES, CORE | PARK [...] | + + + + + | [facility] | [address] | [place] [address] | | | SERVICES, CORE | GERDA [...] [facility] | [address] | [place] [address] | | | SERVICES, CORE | GERDA [...] | | | LABORATORY | | | IRAQI | | | SERVICES, | | | [...] | + + + + + | [facility] | [address] | [place] [address] | | | [place] JARAMILLO | [address] [...] [facility] | [address] | [place] [address] | | | SERVICES, CORE | GERDA [...] - [facility] | [address] | [place], [place] | | | R[place] POINT OF CARE | [address] | [address] | | | TESTS | | | [...] view image for the detailed interpretation from Inogen results. | CARDIOLOGY | + + + + + | Procedure Note | + + | Interface, Cardiology Results - 03/27/2013 8:43 PM PDT Please click on view image | | for the detailed interpretation from InNephosity results. | + + + + + + + | Performing | Address | City/State/Zipcode | Phone Number | | Organization | | | | + + + + + | [facility] | [address] | [place], [place] | | | CARDIOLOGY | [address] | [address] | | + + + + + X-RAY PORTABLE CHEST 1 VIEW (03/25/2013 8:43 PM PDT) + + + + + + | Component | Value | Ref Range | Performed | Pathologist | | | | | At | Signature | + + + + + + | X-RAY | STUDY: IN CHEST 1 VIEW | | | | [...] + + | Performing | Address | City/State[facility] | Phone Number | | Organization | [...] [facility] | [address] | [place] [address] | | | ELLA, [place] | [address] [...] | + + + + + | [facility] | [address] | [place] [address] | | | SERVICES, CORE | GERDA [...] [facility] | [address] | [place] [address] | | | [place] JARAMILLO | GERDA [...] | | | LABORATORY | | | IRAQI | | | SERVICES, | | | [...] | + + + + + | [facility] | [address] [facility] | [place] [address] | | | SERVICES, [place] | GERDA [...] [facility] | [address] | [place] [address] | | | SERVICES, [place] | GERDA [...] [facility] | [address] | [place], [place] | | | R[place] POINT OF CARE | [address] | [address] | | | TESTS | | | [...] | | | Final CULTURE | | [place] | | | | RESULT:No growth (<1000 [...] + | [facility] - | [address] | [place] [address] | | | [place] | | | | + + + [...] | + + + + + | [facility] | [address] | [place] [address] | | | SERVICES, CORE | PARK [...] [facility] | [address] | [place] [address] | | | SERVICES, [place] | PARK [...] | + + + + + | [facility] | [address] | [place] [address] | | | SERVICES, CORE | PARK [...] [facility] | [address] | [place], [place] | | | BREANNA EMERY OF CARE | [address] | [address] | | | TESTS | | | [...] | | + +---------+ + + | [facility] DEPARTMENT OF | | | [...] [facility] | [address] | [place], [place] | | | BREANNA EMERY OF [facility] | [address] | [address] | | | TESTS | | | [...] | | | | | IVÁN DILLON ([id number]) | | | | | | on 03/25/2013 10:27:32 PM | | | | + + + + + + + + | Specimen | + + | | + + + + + | Narrative | Performed At | + + + | Please click | [facility] | | on view image for the detailed interpretation from Inogen results. | CARDIOLOGY | + + + + + | Procedure Note | + + | Interface, Cardiology Results - 03/25/2013 10:27 PM PDT Please click on view image | | for the detailed interpretation from Inogen results. | + + + + + + + | Performing | Address | City/State/Zipcode | Phone Number | | Organization | | | | + + + + + | [facility] | [address] | [place], [place] | | | CARDIOLOGY | [address] | [address] | | + + + + + [...] [facility] | [address] | [place] | | | [place] [facility] | [address] | [address] | | | TESTS | | | [...] | + + + + + | [facility] | [address] | [place] [address] | | | SERVICES, CORE | PARK [...] [facility] | [address] | [place] [address] | | | SERVICES, [place] | GERDA [...] [facility] | [address] | [place] [address] | | | SERVICES, CORE | PARK [...] | | | LABORATORY | | | IRAQI | | | SERVICES, | | | [...] the MDRD equation recommended by the | MISU | | National Kidney Disease Education Program. [...] | + + + + + | [facility] | [address] [facility] | [place] [address] | | | ELLA, [place] | GERDA [...] [facility] | [address] | [place], [place] | | | BREANNA EMERY OF [facility] | [address] | [address] | | | TESTS | | | [...] [facility] | [address] | [place], [place] | | | BREANNA EMERY OF CARE | [address] | [address] | | | TESTS | | | [...] [facility] | [address] | [place], [place] | | | BREANNA EMERY OF CARE | [address] | [address] | | | TESTS | | | [...] [facility] | [address] | [place], [place] | | | BREANNA EMERY OF CARE | [address] | [address] | | | TESTS | | | [...] [facility] | [address] | [place], [place] | | | BREANNA EMERY OF [facility] | [address] | [address] | | | TESTS | | | [...] [facility] | [address] | [place], [place] | | | BREANNA EMERY OF CARE | [address] | [address] | | | TESTS | | | [...] [facility] | [address] | [place] [address] | | | SERVICES, CORE | PARK [...] | + + + + + | [facility] | [address] | [place] [address] | | | SERVICES, CORE | PARK [...] [facility] | [address] | [place] [address] | | | SERVICES, CORE | GERDA [...] [facility] | [address] | [place] [address] | | | SERVICES, CORE | PARK [...] | | | LABORATORY | | | IRAQI | | | SERVICES, | | | [...] | + + + + + | [facility] | [address] | [place] [address] | | | [place] JARAMILLO | GERDA [...] | + + + + + | [facility] | [address] | [place] [address] | | | SERVICES, CORE | PARK [...] | + + + + + | [facility] | [address] | [place] [address] | | | SERVICES, CORE | GERDA [...] | | | Final CULTURE | | [place] | | | | RESULT:No growth (<1000 [...] + | [facility] - | [address] | [place] [address] | | | [place] | | | [...] | + + + + + | [facility] | [address] | [place] [address] | | | SERVICES, CORE | GERDA [...] [facility] | [address] | [place] [address] | | | SERVICES, CORE | GERDA [...] view image for the detailed interpretation from InNephosity results. | CARDIOLOGY | + + + + + | Procedure Note | + + | Interface, Cardiology Results - 03/24/2013 11:18 PM PDT Please click on view image | | for the detailed interpretation from Inogen results. | + + + + + + + | Performing | Address | City/State/Zipcode | Phone Number | | Organization | | | | + + + + + | [facility] | [address] | [place], [place] | | | CARDIOLOGY | [address] | [address] | | + + + + + X-RAY PORTABLE CHEST 1 VIEW (03/23/2013 9:56 AM PDT) + + + + + + | Component | Value | Ref Range | Performed | Pathologist | | | | | At | Signature | + + + + + + | X-RAY | STUDY: IN CHEST 1 VIEW | | | | [...] | + + + + + | [facility] | [address] | [place] [address] | | | SERVICES, CORE | GERDA [...] [facility] | [address] | [place], [place] | | | BREANNA EMERY OF [place] | [facility] | [address] | | | TESTS | | | [...] [facility] | [address] | [place] [address] | | | SERVICES, CORE | [address] | | | + + + + + MAGNESIUM, PLASMA (03/23/2013 2:49 AM PDT) + +-------+ + + + | Component | Value | Ref Range | Performed | Pathologist | | | | | At | Signature | + +-------+ + + + | MAGNESIUM,P | 2.0 | 1.8 - 2.5 mg/dL | [facility] | | | LASMA | [...] [facility] | [address] | [place] [address] | | | SERVICES, CORE | GERDA [...] | + + + + + | [facility] | [address] [facility] | [place] [address] | | | [place] JARAMILLO | [address] [...] | | | LABORATORY | | | IRAQI | | | SERVICES, | | | [...] | + + + + + | [facility] | [address] | [place] [address] | | | SERVICES, CORE | PARK [...] | | | | placement of 10 Portuguese | | | | | | multipurpose [...] | | | | | | 10 Portuguese multipurpose | | | | | | [...] | | | | | | 12 Portuguese drainage | | | | | | catheter was positioned | | | | | | in the collection. | | | | | | Impression: 1. Fluid | | | | | | collection in the left | | | | | | pelvis consistent with | | | | | | an abscess 2. 10 Portuguese | | | | | | multipurpose [...] | | + +---------+ + + | [facility] DEPARTMENT [facility] | | | [...] | | | Final GRAM | | [facility] | | | | STAIN:Many | | [...] + | [facility] - | [address] | [place] [address] | | | [place] | | | | + + + [...] [facility] | [address] | [place] [address] | | | SERVICES, | [address] [...] | + + + + + | [facility] | [address] [facility] | [place] [address] | | | SERVICES, | [address] [...] | + + + + + | [facility] | [address] | [place] [address] | | | SERVICES, CORE | PARK [...] [facility] | [address] | [place] [address] | | | SERVICES, [place] | PARK [...] [facility] | [address] | [place] [address] | | | SERVICES, CORE | PARK [...] | + + + + + | [facility] | [address] [facility] | [place] [address] | | | SERVICES, CORE | GERDA [...] | + + + + + | [facility] | [address] | [place] [address] | | | [place] JARAMILLO | [address] [...] | | | LABORATORY | | | IRAQI | | | SERVICES, | | | [...] | + + + + + | [facility] | [address] | [place] [address] | | | SERVICES, CORE | [address]DA [...] | | | | | dose on [facility] 04/02/13 at 1500, | | | [...] 6:21 | | | | | dose, [facility] 03/26/13 at 1815 | | PM PDT | | | | + +---------+ +-------+---+---+ +---+---+ | | | +---+---+ + +---------+ +-------+---+---+ | furosemide (LASIX) injection 20 | New Bag | 03/25/20 | 20 mg | | | | mg 20 mg, intravenous, ONCE, | | 9:06 | | | | | dose, [facility] 03/25/13 at 2115 | | PM PDT | | | | + +---------+ +-------+---+---+ +---+---+ | | | +---+---+ + +---------+ +-------+---+---+ | furosemide (LASIX) injection 20 | New Bag | 03/26/20 | 20 mg | | | | mg 20 mg, intravenous, ONCE, | | 10:41 | | | | | dose, [facility] 03/26/13 at 2300 | | PM PDT | | | | + +---------+ +-------+---+---+ +---+---+ | | | +---+---+ + +---------+ +-------+---+---+ | furosemide (LASIX) injection 20 | New Bag | 03/30/20 | 20 mg | | | | mg 20 mg, intravenous, ONCE, | | 2:40 | | | | | dose, [facility] 03/30/13 at 0315 | | AM PDT [...] | | | | | 1736, Until [facility] 04/02/13 at 0757, | | | [...] AM PDT | | | | | [facility] 03/26/13 at 0000, Until | | [...] | | | | | modification) on [facility] 03/26/13 at | | | | [...] | | | | | modification) on [facility] 04/09/13 at | | | | [...] | | | | First dose on [facility] 04/09/13 at | | AM PDT [...] | | | | | reorder) on [facility] 03/26/13 at 2000, | | | [...]
--- OUTSIDE RECORDS SUMMARY | ~2019-07-11 | XMS | Encounter Summary ---
Demographics + + + | Address | [address] | | | [place] [address] | + + + | Home Phone | | + + + | Preferred Language | Unknown | + + + | Marital Status | | + + + | Moravian Affiliation | 1073 | + + + | Race | Unknown | + + + | Ethnic Group | Unknown | + + + Author + + + | Author | [facility] | | | and [place] | + + + | Organization | [facility] | | [...] Team Providers + +------+ + | Care Drapery Sewer Hand Name | Role | Phone | + +------+ + PCP | Unavailable | + +------+ + Encounter Details +--------+ + + + + | Date | Type | Department | Care Team | Description | +--------+ + + + + | 06/20/ | Hospital | [facility] | Krys Lujan DO | Elevated troponin; | | 2010 - | Encounter | [facility] | [address] | Vomiting; Nausea; | | | | CARE [address]LO[address] | [place] [address] | Elevated troponin | | 06/25/ | | [address] | [phone] | level; Dehydration | | 2010 | | [place], [place] | |Dehydration | | | | [address] | | | | | | [phone] | | | +--------+ + + + [...] | | real-time scans were performed with solar sales representative static images | | | obtained. [...] real-time | | scans were performed with solar sales representative static images obtained. FINDINGS: The liver [...] groin was anesthetized with 1% lidocaine. A 6-Kenyan arterial sheath | | | was placed in the right femoral artery, and a 6-Kenyan JL4 catheter | | | was advanced under fluoroscopic guidance and engaged with the ostium | | | of the left main coronary artery, and multiple projections of the | | | left coronary system were done with the use of contrast injections. | | | The catheter was then exchanged for a 6-Kenyan JR4 catheter which was | | | engaged with the ostium of the right coronary artery and multiple | | | projections of the right coronary system were obtained with the use | | | of contrast injections. The catheter was then exchanged for a | | | 6-Kenyan pigtail catheter which was advanced into the [...] | was anesthetized with 1% lidocaine. A 6-Kenyan arterial sheath was placed | | in the right femoral artery, and a 6-Kenyan JL4 catheter was advanced | | under fluoroscopic guidance and engaged with the ostium of the left main | | coronary artery, and multiple projections of the left coronary system were | | done with the use of contrast injections. The catheter was then exchanged | | for a 6-Kenyan JR4 catheter which was engaged with the ostium of the right | | coronary artery and multiple projections of the right coronary system were | | obtained with the use of contrast injections. The catheter was then | | exchanged for a 6-Kenyan pigtail catheter which was advanced into the [...] | 1.41 D-E Excursion: 1.96 cm E-F Izard: 0.14 m/s EPSS: | | | 0.74 [...] TV A Idris: 0.43 m/s TV Dec Izard: | | | 4.62 m/s2 TV Dec Time: 62.37 ms TV E Idris: 0.28 m/s TV E/A | | | Ratio: 0.66 General Operations Agent: CLOVIS Authenticated by: Harpreet Riddle MD | [...] mlLAESV Index (A-L): 15.79 ml/m2LAAs A2C: 11.82 [id number] A-L | | A2C: 28.49 mlLALs A2C: 4.16 cmLAAs A4C: 11.40 [id number] A-L A4C: 25.07 mlLALs | | A4C: 4.40 cmAo Diam: 2.70 cmAV Cusp: 1.57 cmLA Diam: 3.83 cmLA/Ao: 1.41D-E | | Excursion: 1.96 cmE-F Izard: 0.14 m/sEPSS: 0.74 cmIVC diameter: 0.90 cmIVC | | collapse: 0.33 cmIVC % collapse: 61.94 %HR: 98.36 BPMAR maxP.94 mmHgAR | | meanP.71 mmHgAR Vmax: 4.27 m/Ron Vmean: 3.06 m/Ron VTI: 97.33 cmHR: | | 100.18 BPMAV maxP.87 mmHgAV meanP.43 mmHgAV Vmax: 1.21 m/Gillian Vmean: 0.89 | | m/Gillian VTI: 18.52 cmAVA Vmax: 2.26 cm2AVA (VTI): 2.23 [id number] Dopp: 2.28 | | l/[id number] Dopp: 3.97 l/minHR: 96.03 BPMLVOT maxP.78 mmHgLVOT [...] 2.38 m/sTV A Idris: 0.43 m/sTV Dec Izard: 4.62 m/s2TV | | Dec Time: 62.37 msTV E Idris: 0.28 m/sTV E/A Ratio: 0.66 General Operations Agent: | | MIKAuthenticated by: Harpreet Riddle [facility] Date/Time: 06-21-2011 16:41:13 | | | |MEASUREMENTS [...] | |D-E Excursion: 1.96 cm | |E-F Izard: 0.14 m/s | |EPSS: 0.74 cm | [...] A Idris: 0.43 m/s | |TV Dec Izard: 4.62 m/s2 | |TV Dec Time: 62.37 ms | |TV E Idris: 0.28 m/s | |TV E/A Ratio: 0.66 | | | |General Operations Agent: CLOVIS | |Authenticated by: Harpreet Riddle MD | |Report Date/Time: 06-21-2011 16:41:13 | + + MRSA NAAT (06/21/2011 5:53 AM PST) + + | Specimen | + + | | + + + + + | Narrative | Performed At | + + + | [facility](NOSE) | EXTERNAL LAB | | Testing performed at [facility];[address];[place] [address] MRSA PCR | | | NEGATIVE Testing performed at | | | [facility];[address];[place] [address] | | + + + + +---------+ [...]
[2019-07-11] MEDS ORDERED: MIRTAZAPINE15 MG PO (12:43)
== END 2019-07-11 13:52 | disposition home or self-care (01) ==
LOC: ED 12:41
DX: K56.41 Fecal impaction (principal); I10 Essential (primary) hypertension; Z87.891 Personal history of nicotine dependence; Z88.1 Allergy status to other antibiotic agents; Z88.8 Allergy status to other drugs, medicaments and biological substances; Z79.899 Other long term (current) drug therapy
CPT/HCPCS: 99283

== ENCOUNTER 2020-03-16 22:03 | Emergency (ER) | payer MEDICARE, OTHER ==
[~2020-03-16] VITALS: Ht 157.5 cm; Wt 54.4 kg
--- OUTSIDE RECORDS SUMMARY | ~2020-03-16 | XMS | Encounter Summary ---
Demographics + + + | Address | [address] [place] [address] | | | [place] [address] | + + + | Home Phone | | + + + | Preferred Language | Unknown | + + + | Marital Status | Single | + + + | Oriental Orthodox Affiliation | NON | + + + | Race | White | + + + | Ethnic Group | Not or | + + + Author + + + | Author | [facility] | + + + | Organization | [facility] | + + + | Address | Unknown | + + + | Phone | Unavailable | + + + Support + + +---------+ + | Name | Relationship | Address | Phone | + + +---------+ + | Bre Amaya | ECON | Unknown | | + + +---------+ + Care Team Providers + +------+ + | Care Healthcare Associate Name | Role | Phone | + +------+ + | Jeb Johnson DO | PCP | | + +------+ + Reason for Referral Diagnostic Testing (Routine) +--------+--------+ + + + + | Status | Reason | Specialty | Diagnoses / | Referred By | Referred To | | | | | Procedures | Contact | Contact | +--------+--------+ + + + + | Closed | | Cardiology | Procedures | Godfrey, | Car Echo | | | | | | Katy Mitchell, | [facility] [address] | | | | | TRANSTHORACI | PA-C [address] | | | | | [address] | [address] | [address] | | | | | E[address]OCARDIO[address] | [address] | [place] | | | | | AM, [address] | [address] | Building, [address] | | | | | | [place], [place] | floor | | | | | | [address] | [place], [place] | | | | | | Phone: | [phone] | | | | | | [phone] | Phone: | | | | | | Fax: | [phone] | | | | | | [phone] | | +--------+--------+ + + + + Diagnostic Testing (Routine) +--------+--------+ + + + + | Status | Reason | Specialty | Diagnoses / | Referred By | Referred To | | | | | Procedures | Contact | Contact | +--------+--------+ + + + + | Closed | | Radiology | Procedures | Coleen | Rad Ct Scan | | | | | CT ABDOMEN | Letty Friend, | [facility] [address] | | | | | & PELVIS [address] | MD [address] | [address] | | | | | IV CONTRAST | [address] | [address] [facility] | | | | | | [address] [facility], | | | | | | [place], [place] | [facility] Floor | | | | | | [address] | [place], [place] | | | | | | | [address] | | | | | | | Phone: | | | | | | | [phone] | | | | | | | Fax: | | | | | | | [phone] | +--------+--------+ + + + + Diagnostic Testing (Routine) +--------+--------+ + + + + | Status | Reason | Specialty | Diagnoses / | Referred By | Referred To | | | | | Procedures | Contact | Contact | +--------+--------+ + + + + | Closed | | Radiology | Procedures | Pradeep | Rad Ct Scan | | | | | CT ABDOMEN | Sharmaine Robert MD | [address] | | | | | & PELVIS [address] | [address] | [address] | | | | | IV CONTRAST | [facility] | [address] | | | | | | [address] | [facility], | | | | | | [place], [place] | [facility] Floor | | | | | | [address] | [place], [place] | | | | | | Phone: | [phone] | | | | | | [phone] | Phone: | | | | | | Fax: | [phone] | | | | | | [phone] | Fax: | | | | | | | [phone] | +--------+--------+ + + + + Reason for Visit +---------+ + | Reason | Comments | +---------+ + | Abscess | | +---------+ + | Sepsis | | +---------+ + AUTH/CERT +--------+--------+ + + + + | Status | Reason | Specialty | Diagnoses / | Referred By | Referred To | | | | | Procedures | Contact | Contact | +--------+--------+ + + + + | Closed | | | | | | +--------+--------+ + + + + Encounter Details +--------+ + + + + | Date | Type | Department | Care Team | Description | +--------+ + + + + | 03/22/ | Hospital | [facility] [address] | Meredith Steven | | | 2012 - | Encounter | [address] | MD [address] | | | | | [place], [place] | [address] | | | 04/11/ | | [address] | [place], [place] | | | 2012 | | [phone] | [address] | | | | | | [phone] | | | | | | | | | | | | Gallo Dubon MD | | | | | | [address] | | | | | | [address] [place], | | | | | | [place] [address] | | | | | | [phone] | | | | | | | | +--------+ + + + + Social History + +-------+ +--------+------+ | Tobacco Use | Types | Packs/Day | Years | Date | | | | | Used | | + +-------+ +--------+------+ | Former Smoker | | 0.5 | 10 | | + +-------+ +--------+------+ + +---+---+---+ | Smokeless Tobacco: | | | | | Never Used | | | | + +---+---+---+ + + +---------+ + | Alcohol Use | Drinks/Week | oz/Week | Comments | + + +---------+ + | No | | | | + + +---------+ + + + + | Sex Assigned at | Date Recorded | | | | + + + | Not on file | | + + + + + + + | Job Start Date | Occupation | Industry | + + + + | Not on file | Not on file | Not on file | + + + + + + + + | Travel History | Travel Start | Travel End | + + + + + + | No recent travel history available. | + + documented as of this encounter Last Filed Vital Signs + + + + + | Vital Sign | Reading | Time Taken | Comments | + + + + + | Blood Pressure | 124/59 | 04/11/2013 8:36 AM | | | | | PDT | | + + + + + | Pulse | 68 | 04/11/2013 8:36 AM | | | | | PDT | | + + + + + | Temperature | 36.4 C (97.5 F) | 04/11/2013 8:36 AM | | | | | PDT | | + + + + + | Respiratory Rate | 16 | 04/11/2013 8:36 AM | | | | | PDT | | + + + + + | Oxygen Saturation | 97% | 04/11/2013 8:36 AM | | | | | PDT | | + + + + + | Inhaled Oxygen | - | - | | | Concentration | | | | + + + + + | Weight | 59.7 kg (131 lb 9.6 | 04/10/2013 8:00 PM | | | | oz) | PDT | | + + + + + | Height | 160 cm (5' 3") | 03/22/2013 5:15 PM | | | | | PDT | | + + + + + | Body Mass Index | 23.31 | 03/22/2013 5:15 PM | | | | | PDT | | + + + + + documented in this encounter Discharge Summaries Julissa Cortes MD - 04/10/2013 2:13 PM PDTFormatting of this note might be different fr om the original. [facility] DEPARTMENT OF SURGERY EMERGENCY GENERAL SURGERY Division of Trauma and Critical Care INPATIENT PROVIDER DISCHARGE SUMMARY Note Date: 04/10/2013 Admission Date: 03/22/2013 JUDIE LAMBERT, Discharge Date: 11 Apr 2013 PCP: Jeb Johnson DO Attending Physician: Gallo Dubon MD Author: JULISSA CORTES MD Hospital Course: Judie Lambert is an 83 y/o female who presented to the ED in [facility] on 03/21 with abdomin al pain with known prior history of diverticulosis. She was found to have a LLQ mass and WBC count of 17,000. CT demonstrated reji diverticular abscess. She was started on meropenem, L evaquin and flagyl, and receive 7 liters fluid resuscitation. She was also noted with UA + > 100,000 Lactose building drafter. She decompensated requiring levophed for blood pressure thus she was transferred to [facility] for higher level of care for septic shock. Upon arrival her situation was discussed at length with patient who did not want surgery re sulting in a colostomy therefore she was taken to IR for LLQ drain placement into pelvic abs cess. She was noted with respiratory insufficiency with Sp02 in low 80s. CXR demonstrated bilater al pleural effusions and atelectasis. She was given lasix for volume overload and was weaned off pressors by 03/23. She complained of abdominal distention with intractable nausea. NGT w as placed with minimal output and removed the following day. TPN was initiated as she was un able to tolerate oral diet. ABX narrowed to Augmentin for 14 days. She had an episode of respiratory distress the evening of 03/25 with improvement after neb t reatment and IV lasix. 03/24/13, she was transferred to ICU due to deterioration of vital sig ns and respiratory distress. Antibiotics were switched to Vanc and zosyn due to RML consolid ation concerning for aspiration pneumonia. She underwent a CT for to intractable nausea with no obvious abscess or fluid collections, noted bilateral effusions and near complete right middle and lower lobe atelectasis. Cardiology was consulted 03/30/13 for decompensated systolic heart failure with no prior his tory of CO or heart failure. Echo demonstrated EF 30-35%. She wast started on lisinopril 5mg daily, lasix drip and switched from metoprolol to coreg 12.5mg bid. Her pelvic drain was re moved on 03/31. By 04/02, her respiratory and cardiovascular improved and she was transferred to the [facility] on 04/02 in stable condition. She was started on bumex 1mg bid on 04/03/13. A dobbhoff feeding tube was placed, but she was unable to tolerate tube feedings with elevation of lipase level . Imaging demonstrated a 1cm common bile duct stone. GI was consulted on 04/04/13 for pancrea titis. MRCP demonstrated no CBD calculi, intrahepatic or intrahepatic biliary ductal dilatat ion. Chest xray on 04/06 demonstated substantial improvement in the bilateral dependent areas of atelectasis. By 04/08, her lipase had decreased consistently for the past 4 days, so she was started on trickle tube feeds. Her tube feeds were advanced to goal @ 50cc/hr and her T PN was discontinued. Vitals on discharge: Ht 1.6 m (5' 3"), Wt 59.013 kg (130 lb 1.6 oz), BP 99/51, Pulse 84, Te mperature 36.4 C (97.5 F), RR 16, SpO2 94%, BMI 23.05 kg/(m^2). Outstanding labs/pathology/studies: None Medications: Current Discharge Medication List START taking these medications Details carvedilol 3.125 mg Oral tablet 1 tablet by Feeding Tube route two times daily with meals. Administer with food. Qty: 30 tablet, Refills: 0 docusate sodium 50 mg/5 mL Oral Liquid 10 mL by Feeding Tube route two times daily. Qty: 480 mL, Refills: 3 lisinopril 5 mg Oral tablet 1 tablet by Feeding Tube route once daily. Qty: 30 tablet, Refills: 3 omeprazole 2 mg/mL oral suspension (compound) Take 10 mL by mouth once daily. Qty: 300 mL, Refills: 6 CONTINUE these medications which have CHANGED or have new prescriptions Details Cholecalciferol, Vitamin D3, 2,000 unit Oral tablet Take 1 tablet by mouth once daily. Qty: 90 tablet, Refills: 4 citalopram 20 mg Oral tablet 1 tablet by Feeding Tube route once daily. Qty: 90 tablet, Refills: 4 levothyroxine 125 mcg Oral tablet 1 tablet by Feeding Tube route once daily. Qty: 90 tablet, Refills: 4 simvastatin 20 mg Oral tablet 1 tablet by Feeding Tube route once daily in the evening. Qty: 90 tablet, Refills: 4 CONTINUE these medications which have NOT CHANGED Details alendronate 70 mg Oral tablet Take 70 mg by mouth every seven days. calcium carbonate chewable 200 mg calcium (500 mg) Oral tablet, chewable Take 800 mg by danelle th two times daily. multivitamin Oral capsule Take 1 Cap by mouth once daily. STOP taking these medications metoprolol tartrate 50 mg Oral tablet Comments: Reason for Stopping: omeprazole 20 mg Oral capsule,delayed release(DR/EC) Comments: Reason for Stopping: Follow-up: Please call to setup an appointment within 1 week Please ask primary care physician for a referral to a local pyrometer temperature regulator for treatment of n ewly-diagnosed congestive heart failure. Jeb [address] [place] [address] Discharging Provider: JULISSA CORTES MD Attending Physician: Gallo Dubon MD documented in this encou nter Discharge Instructions Instructions Trupti Dye RN - 03/25/2013Patient Education Materials: See attached Additional Instructions: N/A Discharge Nurse: TRUPTI DYE RN Date: 03/25/2013 Discharge Time: 9:22 PM documented in this encounter Medications at Time of Discharge + + + +---------+ + + | Medication | Sig | Dispensed | Refills | Start | End Date | | | | | | Date | | + + + +---------+ + + | alendronate 70 mg | Take 70 mg by mouth | | 0 | | | | Oral tablet | every seven days. | | | | | + + + +---------+ + + | calcium carbonate | Take 800 mg by mouth | | 0 | | | | chewable 200 mg | two times daily. | | | | | | calcium (500 mg) | | | | | | | Oral tablet, | | | | | | | chewable | | | | | | + + + +---------+ + + | carvedilol 3.125 | 1 tablet by Feeding | 30 | 0 | 04/10/20 | | | mg Oral tablet | Tube route two times | tablet | | 13 | | | | daily with meals. | | | | | | | Administer with | | | | | | | food. | | | | | + + + +---------+ + + | Cholecalciferol, | Take 1 tablet by | 90 | 4 | 04/10/20 | | | Vitamin D3, 2,000 | mouth once daily. | tablet | | 13 | | | unit Oral tablet | | | | | | + + + +---------+ + + | citalopram 20 mg | 1 tablet by Feeding | 90 | 4 | 04/10/20 | | | Oral tablet | Tube route once | tablet | | 13 | | | | daily. | | | | | + + + +---------+ + + | docusate sodium 50 | 10 mL by Feeding | 480 mL | 3 | 04/10/20 | | | mg/5 mL Oral Liquid | Tube route two times | | | 13 | | | | daily. | | | | | + + + +---------+ + + | levothyroxine 125 | 1 tablet by Feeding | 90 | 4 | 04/10/20 | | | mcg Oral tablet | Tube route once | tablet | | 13 | | | | daily. | | | | | + + + +---------+ + + | lisinopril 5 mg | 1 tablet by Feeding | 30 | 3 | 04/10/20 | | | Oral tablet | Tube route once | tablet | | 13 | | | | daily. | | | | | + + + +---------+ + + | multivitamin Oral | Take 1 Cap by mouth | | 0 | | | | capsule | once daily. | | | | | + + + +---------+ + + | omeprazole 2 mg/mL | Take 10 mL by mouth | 300 mL | 6 | 04/10/20 | | | oral suspension | once daily. | | | 13 | | | (compound) | | | | | | + + + +---------+ + + | simvastatin 20 mg | 1 tablet by Feeding | 90 | 4 | 04/10/20 | | | Oral tablet | Tube route once | tablet | | 13 | | | | daily in the | | | | | | | evening. | | | | | + + + +---------+ + + documented as of this encounter Progress Matthew King MD - 04/11/2013 5:57 AM PDTFormatting of this note might be different fr om the original. [facility] DEPARTMENT OF SURGERY EMERGENCY GENERAL SURGERY Division of Trauma and Critical Care Attending Physician: Gallo Dubon MD Progress Note Note Date: 04/11/2013 Admission Date: 03/22/2013 JUDIE LAMBERT Hospital Day #20 HPI: 83 y.o. y/o female admitted on 03/22/2013 4:43 PM and hospital day 20 with below curr ent issues. Patient Active Problem List Diagnosis Date Noted CHF (congestive heart failure) 04/10/2013 Septic shock 03/23/2013 Abdominal abscess 03/23/2013 Hypervolemia 03/23/2013 Anemia 03/23/2013 Electrolyte abnormality 03/23/2013 Intestinal diverticular abscess 03/22/2013 INTERVAL HISTORY and SUBJECTIVE: Doing well. Tolerating tube feeds without N/V. Denies F/C /CP/SOB. Reports having a BM, unsure when. Has been OOB to chair only, not ambulating REVIEW OF SYSTEMS: Pain well controlled Flatus: YES Tolerating diet: Yes Nausea/Vomiting: None Bowel movement: YES; When: Yesterday afternoon Progressing with Physical Therapy YES The remainder of the complete review of system was negative. OBJECTIVE: I have reviewed the interval history and events. I have revewed the patients medications, l abs, vitals, and other applicable data points. Please refer to [facility] for this information . PHYSICAL EXAM: LAST VITALS: BP 102/55 | Pulse 74 | Temp 36.6 C (97.9 F) | RR 16 | Ht 1.6 m (5' 3") | W t 59.693 kg (131 lb 9.6 oz) | SpO2 99% | BMI 23.32 kg/(m^2) 24 Hour Vital Min/Max: Systolic (24hrs), Av mmHg, Min:99 mmHg, Max:124 mmHg Diastolic (24hrs), Av mmHg, Min:50 mmHg, Max:55 mmHg GENERAL: comfortable, does not appear in pain NEURO: AAOx1, could not tell the name of the hospital or the date LUNGS: CTA bilateral CV: RRR ABDOMEN: non tender, soft, active BS : incontinent of urine and stool, uses adult diapers Extremities:Warm and well perfused, no peripheral edema ASSESSMENT, MEDICAL DECISION MAKING AND PLAN: JUDIE LAMBERT- 83 y.o. y/o female admitted on 06/2013 4:43 PM and hospital day 20 with following current issues. 1. Decompensated heart failure - CXR on 04/06: clear lung angulo bilaterally - cont low dose coreg, lisinopril - Goal daily weight even. - standing daily weights - d/c bumex - f/u with cardiology for recs on home medication regimen 2. Persistent nausea and pancreatitis - Pancreatitis resolving, lipase stable in 400's. Nausea resolved. - Lipase stable: 480 yesterday - Limited clears when OOB to chair - At goal TFs via DHT, goal rate: 50 cc/hr for 24 hour feeds - Continue TPN until enteral nutrition possible 3. Complex diverticulitis - resolved -10 day course of abx completed 03/30. - By CT scan, has improved significantly. Drain has been removed. - WBC remains wnl 4. Hypoxic respiratory failure -resolved - continue duonebs q6h 5. Delirium - stable, likely at baseline mental status. 6. Anemia of chronic disease and sepsis, -stable 7. Acute on chronic pain -tylenol PRN 8. Severe malnutrition - Discontinue TPN - TF's at goal - speech eval: cleared for sips of clears when OOB to chair 9. Hyperglycemia - insulin in TPN and some sliding scale requirements 10. Severe deconditioning -Progessing with PT, will discharge today to SNF -encourage ambulation 11. Stress incontinence -with coughing and occasionally spontaneously. In diapers. Discharge Plan: Ready for discharge today to SNF ID: Antibiotics: None Fluids: TPN Feeding: TF's Analgesia: tylenol PRN Sedation: not indicated Thromboprophylaxis: enoxaparin 30mg qHS Head of bed: > 45 Ulcer prophylaxis: omeprazole Glycemic control: SSI Activity/PT/OT: Up ad chacha, PT/OT Yogurt: hx of Abx, [place] [phone] pager number [facility] [address] [facility] [place] [phone] Christiano Darden MD - 0 04/10/2013 7:[address] [facility] DEPARTMENT OF SURGERY EMERGENCY GENERAL SURGERY Division of Trauma and Critical Care Attending Physician: Gallo Dubon MD Progress Note Note Date: 04/09/2013 Admission Date: 03/22/2013 JUDIE LAMBERT, Hospital Day #19 INTERVAL HISTORY and SUBJECTIVE: Tube feeds advanced to goal of 35cc/hr via DHT for 24 hour rate. Cleared by RT for no home oxygen requirements Denies pain, tolerating TFs, having regular BMs. Working with family for discharge planning. Given needs including TF's and speech and phys ical therapy, we recommend SNF. REVIEW OF SYSTEMS: Pain well controlled Flatus: YES Tolerating diet: N/A Nausea/Vomiting: Nausea Bowel movement: YES; When: yesterday The remainder of the complete review of system was negative. OBJECTIVE: I have reviewed the interval history and events. I have revewed the patients medications, l abs, vitals, and other applicable data points. Please refer to [facility] for this information . PHYSICAL EXAM: LAST VITALS: BP 107/49 | Pulse 83 | Temp 36.7 C (98.1 F) | RR 16 | Ht 1.6 m (5' 3") | W t 59.013 kg (130 lb 1.6 oz) | SpO2 95% | BMI 23.05 kg/(m^2) 24 Hour Vital Min/Max: Systolic (24hrs), Av mmHg, Min:107 mmHg, Max:124 mmHg Diastoli c (24hrs), Av mmHg, Min:49 mmHg, Max:60 mmHg GENERAL: NAD, bridled DHT in place in left nares. R CVC intact. NEURO: awake, alert LUNGS: CTAB CV: Regular ABDOMEN: Soft, nondistended, nontender : Patient voiding without difficulty into diaper Extremities:Warm and well perfused, SCD's in place and no peripheral edema Patient Active Problem List Diagnosis Intestinal diverticular abscess Septic shock Abdominal abscess Hypervolemia Anemia Electrolyte abnormality ASSESSMENT, MEDICAL DECISION MAKING AND PLAN: 83 y.o. y/o female admitted on 03/22/2013 4:4 3 PM and hospital day 19. Active medical problems as listed below: Daily plan: Discontinue TPN and Central Line 1. Decompensated heart failure - CXR on 04/06: clear lung angulo bilaterally - cont low dose coreg, lisinopril - Goal daily weight even. - standing daily weights - d/c bumex - f/u with cardiology for recs on home medication regimen 2. Persistent nausea and pancreatitis - Pancreatitis resolving, lipase stable in 400's. Nausea resolved. - Lipase stable: 480 from 469 yesterday - Limited clears when OOB to chair - At goal TFs via DHT, goal rate: 50 cc/hr for 24 hour feeds - Continue TPN until enteral nutrition possible 3. Complex diverticulitis - resolved -10 day course of abx completed 03/30. - By CT scan, has improved significantly. Drain has been removed. - WBC remains wnl 4. Hypoxic respiratory failure -resolved - continue duonebs q6h 5. Delirium - stable, likely at baseline mental status. 6. Anemia of chronic disease and sepsis, -stable 7. Acute on chronic pain -tylenol PRN 8. Severe malnutrition - Discontinue TPN - TF's at goal - speech eval: cleared for sips of clears when OOB to chair 9. Hyperglycemia - insulin in TPN and some sliding scale requirements 10. Severe deconditioning -Progessing with PT, ready for discharge to daughter or SNF. -encourage ambulation 11. Stress incontinence -with coughing and occasionally spontaneously. In diapers. Discharge Plan: Ready for discharge today. Discussions will be held with daughter today in regards to home with daughter or SNF ID: Antibiotics: None Fluids: TPN Feeding: TF's Analgesia: tylenol PRN Sedation: not indicated Thromboprophylaxis: enoxaparin 30mg qHS Head of bed: > 45 Ulcer prophylaxis: omeprazole Glycemic control: SSI Activity/PT/OT: Up ad chacha, PT/OT Yogurt: hx of Abx, daily culturelle capsule Julissa Cortes MD General Surgery Resident, PGY1 Pager [phone] [facility] [address] [facility] [address] Julissa Amato MD - 04/09/2013 7:42 AM PDT [facility] DEPARTMENT OF SURGERY EMERGENCY GENERAL SURGERY Division of Trauma and Critical Care Attending Physician: Gallo Dubon MD Progress Note Note Date: 04/09/2013 Admission Date: 03/22/2013 JUDIE LAMBERT, Hospital Day #18 INTERVAL HISTORY and SUBJECTIVE: Complains of thirst. OOB yesterday. Having regular BMs, last BM yesterday. TFs started last night. Mild nausea this AM. REVIEW OF SYSTEMS: Pain well controlled Flatus: YES Tolerating diet: N/A Nausea/Vomiting: Nausea Bowel movement: YES; When: yesterday The remainder of the complete review of system was negative. OBJECTIVE: I have reviewed the interval history and events. I have revewed the patients medications, l abs, vitals, and other applicable data points. Please refer to [facility] for this information . PHYSICAL EXAM: LAST VITALS: BP 112/44 | Pulse 84 | Temp 36.8 C (98.2 F) | RR 16 | Ht 1.6 m (5' 3") | W t 62.46 kg (137 lb 11.2 oz) | SpO2 95% | BMI 24.4 kg/(m^2) 24 Hour Vital Min/Max: Systolic (24hrs), Av mmHg, Min:86 mmHg, Max:115 mmHg Diastolic (24hrs), Av mmHg, Min:42 mmHg, Max:55 mmHg GENERAL: NAD, bridled DHT in place in left nostril NEURO: awake, alert LUNGS: diminished breath sounds in bases bilaterally CV: RRR ABDOMEN: Soft, nondistended, nontender : Patient voiding without difficulty into diaper Extremities:Warm and well perfused, SCD's in place and no peripheral edema Patient Active Problem List Diagnosis Intestinal diverticular abscess Septic shock Abdominal abscess Hypervolemia Anemia Electrolyte abnormality ASSESSMENT, MEDICAL DECISION MAKING AND PLAN: 83 y.o. y/o female admitted on 03/22/2013 4:4 3 PM and hospital day 18. Active medical problems as listed below: Daily plan: limited clears (200ml every 4 hours), OOB, increase TFs to goal, get recs from cardiology for home heart med regimen for discharge 1. Decompensated heart failure - CXR on 04/06: clear lung angulo bilaterally - cont low dose coreg, lisinopril - Goal daily weight even. - standing daily weights - d/c bumex - f/u with cardiology for recs on home medication regimen 2. Persistent nausea and pancreatitis - Pancreatitis resolving - Lipase continues to trend down: 469 from 635 yesterday - Limited clears when OOB to chair - Increase TFs today via DHT, with goal rate of 35cc/hr for 24 hour feeds - Continue TPN until enteral nutrition possible 3. Complex diverticulitis - resolved -10 day course of abx completed 03/30. - By CT scan, has improved significantly. Drain has been removed. - WBC remains wnl 4. Hypoxic respiratory failure -resolved - continue duonebs q6h 5. Delirium - stable, likely at baseline mental status. 6. Anemia of chronic disease and sepsis, -stable 7. Acute on chronic pain -tylenol PRN 8. Severe malnutrition - TPN until enteral nutrition possible. - Dobhoff placed into the stomach. Hold tube feeds until pancreatitis has resolved. - speech eval: cleared for sips of clears when OOB to chair 9. Hyperglycemia - insulin in TPN and some sliding scale requirements 10. Severe deconditioning -Progessing with PT, likely will discharge home with help from daughter. -encourage ambulation 11. Stress incontinence -with coughing and occasionally spontaneously. In diapers. Discharge Plan: In 24-48 hours. home with daughter or SNF pending toleration of goal tube f eeds. ID: Antibiotics: None Fluids: TPN Feeding: TPN Analgesia: tylenol PRN Sedation: not indicated Thromboprophylaxis: enoxaparin 30mg qHS Head of bed: > 45 Ulcer prophylaxis: omeprazole Glycemic control: SSI Activity/PT/OT: Up ad chacha, PT/OT Yogurt: hx of Abx, daily culturelle capsule Julissa Cortes MD General Surgery Resident, PGY1 Pager [phone] [facility] [place] [facility] [address] [phone] Julissa Amato MD - 0 04/08/2013 9:24 AM PDT [facility] DEPARTMENT OF SURGERY EMERGENCY GENERAL SURGERY Division of Trauma and Critical Care Attending Physician: Gallo Dubon MD Progress Note Note Date: 04/08/2013 Admission Date: 03/22/2013 JUDIE LAMBERT, [id number] Hospital Day #17 INTERVAL EVENTS/SUBJECTIVE Continues on 3L O2. Emesis this morning with one of her pills aprox 150 ml. Reports no pain , dyspepsia, cough or nausea at this time. TPN running. In diapers, voiding well. Denies fla tus. MEDICATIONS: Reviewed OBJECTIVE: PHYSICAL EXAM: Last Vitals: BP 113/55 | Pulse 76 | Temp 36.8 C (98.2 F) | RR 15 | Ht 1.6 m (5' 3") | W t 60.328 kg (133 lb) | SpO2 97% | BMI 23.57 kg/(m^2) 24 Hour Vital Min/Max: Systolic (24hrs), Av mmHg, Min:73 mmHg, Max:113 mmHg Diastolic (24hrs), Av mmHg, Mi n:30 mmHg, Max:55 mmHg Temp Av.5 C (97.7 F) Min: 36.2 C (97.2 F) Max: 36.8 C (98.2 F)Pulse Av .7 Min: 72 Max: 81 Resp Av.8 Min: 15 Max: 16 SpO2 Av % Min: 95 % Max: 97 % Intake/Output Summary (Last 24 hours) at 04/08/13 0924 Last data filed at 04/08/13 0800 Gross per 24 hour Intake 1799.5 ml Output 0 ml Net 1799.5 ml GENERAL: Resting comfortably in bed. DHT in place NEURO: awake, alert NECK: Central line site without induration or erythema LUNGS: CTA bilateral CV: RRR ABDOMEN: non tender, soft, nondistended : in diapers Extremities:Warm and well perfused, SCD's in place LABS: Reviewed Patient Active Hospital Problem List: 1) *Intestinal diverticular abscess 2) Septic shock 3) Abdominal abscess 4) Hypervolemia 5) Anemia 6) Electrolyte abnormality ASSESSMENT/PLAN: JUDIE LAMBERT- 83 y.o. y/o female admitted on 03/22/2013 4:43 PM and hospital day 15 with gabbi posada current issues. Plan today: Ambulation, KUB, repositioning DHT to postpyloric position, restart tube feeds through DHT 1. Decompensated heart failure - CXR on 04/06: clear lung angulo bilaterally - cont low dose coreg, lisinopril & hold for low BPs. - Goal daily weight even. - standing daily weights - hold PM Bumex for low BP - 500ml bolus LR 2. Persistent nausea and pancreatitis - Pancreatitis likely 2/2 CBD stone, although ddx includes Lasix. - RUQ US showed 1cm CBD stone, although MRCP doesn't show stone. Its possible that stone romero s passed - Lipase continues to trend down: 631 from 673 yesterday - NPO except meds - DHT bridled, repositioned into jejunal position - TFs started at 10cc/hr - Continue TPN until enteral nutrition possible 3. Complex diverticulitis - resolved -10 day course of abx completed 03/30. - By CT scan, has improved significantly. Drain has been removed. - WBC remains wnl 4. Hypoxic respiratory failure -resolved - continue duonebs q6h 5. Delirium - stable, likely at baseline mental status. 6. Anemia of chronic disease and sepsis, -stable 7. Acute on chronic pain -tylenol PRN 8. Severe malnutrition - TPN until enteral nutrition possible. - Dobhoff placed into the stomach. Hold tube feeds until pancreatitis has resolved. - speech eval: cleared for sips of clears when OOB to chair 9. Hyperglycemia - insulin in TPN and some sliding scale requirements 10. Severe deconditioning -Progessing with PT, likely will discharge home with help from daughter. -encourage ambulation 11. Stress incontinence -with coughing and occasionally spontaneously. In diapers. Discharge Plan: Likely home with daughter when pancreatitis resolves, on enteral nutrition, and nutrition improves. ID: Antibiotics: None Fluids: TPN Feeding: TPN Analgesia: tylenol PRN Sedation: not indicated Thromboprophylaxis: enoxaparin 30mg qHS Head of bed: > 45 Ulcer prophylaxis: omeprazole Glycemic control: SSI Activity/PT/OT: Up ad chacha, PT/OT Yogurt: hx of Abx, daily culturelle capsule Julissa Cortes MD General Surgery Resident, PGY1 Pager [phone] Carolynn Driver - 013 3:28 PM PDTChaplain Note: Asked by RN to check in on pt since she is having a hard time being here for so long and so far away. She really didn't want to interact with me today, s he might be tired. She has no particular spiritual identification. Nurses Educator will stop in f or friendly visit later and see if she is interested. Construction Engineering Managergregory Kinsey M.Div., [facility] [phone] Pager #[phone] On-call pager #[phone] Julissa Amato MD - 6:00 AM PDT [facility] DEPARTMENT OF SURGERY EMERGENCY GENERAL SURGERY Division of Trauma and Critical Care Attending Physician: Gallo Dubon MD Progress Note Note Date: 04/06/2013 Admission Date: 03/22/2013 JUDIE LAMBERT, Hospital Day #15 ID: Judie Lambert is an 83 y/o lady who present to the ED in [facility] [place] on 03/21 with abdomin al pain with known prior history of diverticulosis. She was found to have a LLQ mass and WB C count of 17,000. CT demonstrated reji diverticular abscess. She was started on meropenem , Levaquin and flagyl, and receive 7 liters fluid resuscitation. She was also noted with UA + >100,000 Lactose building drafter. She decompensated requiring levophed for blood pressure thus she was transferred to [facility] for higher level of care for septic shock. Upon arrival her situation was discussed at length with patient who did not want surgery re sulting in a colostomy therefore she was taken to IR for LLQ drain placement into pelvic abs cess. She was noted with respiratory insufficiency with Sp02 in low 80s. CXR demonstrated bilate ral pleural effusions and atelectasis. She was given lasix for volume overload and was wean ed off pressors by 03/23. She complained of abdominal distention with intractable nausea. N GT was placed with minimal output and removed the following day. TPN was initiated as she w as unable to tolerate oral diet. ABX narrowed to Augmentin for 14 days. She had an episode of respiratory distress the evening of 03/25 with improvement after neb t reatment and IV lasix. 03/24/13, she was transferred to ICU due to deterioration of vital si gns and respiratory distress. Antibiotics were switched to Vanc and zosyn due to RML conso lidation concerning for aspiration pneumonia. She underwent a CT for to intractable nausea with no obvious abscess or fluid collections, noted bilateral effusions and near complete right middle and lower lobe atelectasis. Cardiology was consulted 03/30/13 for decompensated systolic heart failure with no prior hi story of CO or heart failure. Echo demonstrated EF 30-35%. She wast started on lisinopril 5mg daily, lasix drip and switched from metoprolol to coreg 12.5mg bid. She was started on b umex 1mg bid on 04/03/13. A dobbhoff feeding tube was placed unable to tolerate tube feedings with elevation of lipase level. Imaging demonstrated a 1cm common bile duct stone. GI was consulted on 04/04/13 for pancreatitis. MRCP demonstrated no CBD calculi, intrahepatic or i ntrahepatic biliary ductal dilatation. Pelvic drain was removed. She was transferred to the [facility] in stable condition. 04/06 lipase continued trending downward and tube feeds remained held and TPN was continued. Chest xray demonstated substantial improvement in the bilatera l dependent areas of atelectasis. Procedures: 03/23: perc IR drain of intramural sigmoid abscess INTERVAL HISTORY: Doing well, no complaints. REVIEW OF SYSTEMS: Pain well controlled Flatus: NO Tolerating diet: N/A Nausea/Vomiting: None Bowel movement: No Progressing with Physical Therapy NO The remainder of the complete review of system was negative. OBJECTIVE: I have reviewed the interval history and events. I have revewed the patients medications, l abs, vitals, and other applicable data points. Please refer to [facility] for this information . PHYSICAL EXAM: LAST VITALS: BP 114/51 | Pulse 73 | Temp 36.8 C (98.2 F) | RR 16 | Ht 1.6 m (5' 3") | W t 63.594 kg (140 lb 3.2 oz) | SpO2 90% | BMI 24.84 kg/(m^2) 24 Hour Vital Min/Max: Systolic (24hrs), Av mmHg, Min:95 mmHg, Max:114 mmHg Diastolic (24hrs), Av mmHg, Min:47 mmHg, Max:56 mmHg GENERAL: Pleasant, cooperative NEURO: awake, alert LUNGS: CTA bilateral CV: RRR ABDOMEN: soft non distended, mild tenderness to palpation DHFT bridled. : Patient voiding without difficulty. Interval improvement in perineal rash. Extremities:Warm and well perfused, SCD's in place Patient Active Hospital Problem List: 1) *Intestinal diverticular abscess 2) Septic shock 3) Abdominal abscess 4) Hypervolemia 5) Anemia 6) Electrolyte abnormality ASSESSMENT, MEDICAL DECISION MAKING AND PLAN: JUDIE LAMBERT- 83 y.o. y/o female admitted on 06/2013 4:43 PM and hospital day 15 with following current issues. Plan today: Ambulation, speech eval 1. Decompensated heart failure - CXR on 04/06: clear lung angulo bilaterally - cont low dose coreg, lisinopril & hold for low BPs. - Goal daily weight even. - standing daily weights - Cont Bumex for CHF 2. Persistent nausea and pancreatitis - Pancreatitis likely 2/2 CBD stone, although ddx includes Lasix. - RUQ US showed 1cm CBD stone, although MRCP doesn't show stone. Its possible that stone romero s passed - Lipase continues to trend down: 653 from 767 yesterday - Hold tube feeds until lipase normalizes - NPO - DHT in place, postpyloric - Will need to be bridled before use - Continue TPN until enteral nutrition possible 3. Complex diverticulitis - resolved -10 day course of abx completed 03/30. - By CT scan, has improved significantly. Drain has been removed. - WBC remains wnl 4. Hypoxic respiratory failure -resolved - continue duonebs q6h 5. Delirium - stable, likely at baseline mental status. 6. Anemia of chronic disease and sepsis, -stable 7. Acute on chronic pain -tylenol PRN 8. Severe malnutrition - TPN until enteral nutrition possible. - Dobhoff placed into the stomach. Hold tube feeds until pancreatitis has resolved. - speech eval to determine aspiration risk in anticipation of restarting tube feeds in next few days 9. Hyperglycemia - insulin in TPN and some sliding scale requirements 10. Severe deconditioning -Progessing with PT, likely will discharge home with help from daughter. -encourage ambulation 11. Stress incontinence -with coughing and occasionally spontaneously. In diapers. Discharge Plan: Likely home with daughter when pancreatitis resolves, TFs started, and nutr ition improves. ID: Antibiotics: None Fluids: TPN Feeding: TPN Analgesia: tylenol PRN Sedation: not indicated Thromboprophylaxis: enoxaparin 30mg qHS Head of bed: > 45 Ulcer prophylaxis: omeprazole Glycemic control: SSI Activity/PT/OT: Up ad chacha, PT/OT Yogurt: hx of Abx, [place] [phone] pager number [facility] [phone] [facility] [place] [address] Brandon Monique MD - 0 04/06/2013 9:44 AM PDT Gastroenterology Follow-Up Note Date: 04/06/2013 IMPRESSION/PLAN: Ms. Lambert is a 83 year-old woman with a history of CAD, CHF, COPD, and diverticulosis who pr esented with abdominal pain to an outside hospital and found to have a diverticular abscess with development of septic shock requiring transfer to [facility], now s/p IR-guided pelvic drain placement with a prolonged hospital course in the setting of CHF, delirium, deconditioning, and malnutrition requiring tube feeding, with recent development of nausea, who was found on U/S imaging to have CBD dilation with a possible stone retained in the duct. I personally reviewed her MRCP results with Radiology, and there is currently no evidence o f a stone in her bile duct. It is possible she had a transient stone that has since passed; review of her biliary anatomy on U/S and MRCP did not reveal evidence of any other retained stones. Her LFTs and clinical exam are reassuring, and therefore we do not feel ERCP is eli cated at this time. Thank you for this consult. This plan was discussed and formulated with the gastroenterolog y attendings, Dr. Edmonds and Dr. Rodrigues. Please call with questions. Brandon Leary MD Fellow, Gastroenterology Pager: [phone] INTERVAL HISTORY: Ms. Lambert reports feeling well this morning. No abdominal pain. No other new symptoms to rep ort. INPATIENT MEDICATIONS acetaminophen (TYLENOL) tablet 325 mg, 325 mg, Oral, Q4H PRN albuterol-ipratropium (DUO-NEB) nebulizer solution 3 mL, 3 mL, Inhalation, Q6H bumetanide (BUMEX) tablet 1 mg, 1 mg, Oral, BID ( and 17) carvedilol (COREG) tablet 3.125 mg, 3.125 mg, Oral, BID W/MEALS cholecalciferol (Vitamin D3) (VITAMIN D-3) tablet 2,000 Units, 2,000 Units, Oral, DAILY citalopram (CELEXA) tablet 20 mg, 20 mg, Oral, DAILY dextrose 50 % injection 12.5 g, 25 mL, Intravenous, PRN docusate sodium (COLACE) capsule 100 mg, 100 mg, Oral, BID enoxaparin (LOVENOX) injection 40 mg, 40 mg, Subcutaneous, QPM fat emulsion IV infusion, 250 mL, Intravenous, Q MO-WE- glucagon (GLUCAGEN) injection 1 mg, 1 mg, Intramuscular, PRN glucose chewable tablet 16 g, 16 g, Oral, PRN heparin 10 unit/mL IV flush syringe 50 Units, 50 Units, Intravenous, PRN hydrocortisone 1 % cream, , Topical, BID insulin lispro (HUMALOG) injection, , Subcutaneous, Q6H lactobacillus rhamnosus (GG) (CULTURELLE) 15 billion cell capsule 1 Cap, 1 Cap, Feeding Tub e, DAILY levothyroxine tablet 125 mcg, 125 mcg, Oral, DAILY lidocaine (LMX 4) 4 % cream, , Topical, PRN lisinopril (PRINIVIL) tablet 5 mg, 5 mg, Oral, DAILY menthol-zinc oxide (CALAZIME) topical paste, , Topical, BID PRN multivitamin 1 Cap, 1 Cap, Oral, DAILY nystatin (MYCOSTATIN) powder, , Topical, BID omeprazole (PRILOSEC) capsule 20 mg, 20 mg, Oral, DAILY ondansetron (aka ZOFRAN) injection 4 mg, 4 mg, Intravenous, Q12H PRN prochlorperazine (COMPAZINE) injection 2.5-5 mg, 2.5-5 mg, Intravenous, Q4H PRN simvastatin (ZOCOR) tablet 20 mg, 20 mg, Oral, QPM sodium chloride (HYPER-HEVER) 7 % nebulizer solution 4 mL, 4 mL, Inhalation, Q6H TPN with famotidine IV infusion (ADULT), , Intravenous, TPN-2100 EXAM BP 99/49 | Pulse 69 | Temp 36.7 C (98.1 F) | RR 16 | Ht 1.6 m (5' 3") | Wt 63.594 kg (1 40 lb 3.2 oz) | SpO2 97% | BMI 24.84 kg/(m^2) Systolic (24hrs), Av mmHg, Min:95 mmHg, Max:125 mmHg Diastolic (24hrs), Av mmHg, Min:47 mmHg, Max:76 mmHg Pulse Av.4 Min: 69 Max: 84 Temp Av.6 C (97.9 F) Min: 36.3 C (97.3 F) Max: 36.8 C (98.2 F) Resp Av.3 Min: 16 Max: 18 SpO2 Av.1 % Min: 91 % Max: 99 % Gen: Chronically ill-appearing woman of stated age lying in bed in NAD. HEENT: Sclera clear. MMM. CV: Normal S1, S2. RRR. Pulm: Breathing comfortably. Abd: Normal bowel sounds. Soft, nondistended. No tenderness to deep palpation in all quadra nts. No hepatomegaly appreciated. No rashes or bruises.Well-healed abdominal scar midline. Psych: Alert, oriented. LABS CBC with diff last 72 hours (or 3 results) Recent Labs 04/04/138 04/05/13 0336 04/06/13 0436 WBC 9.33 7.67 8.82 HB 10.8* 11.7* 12.0 HCT 34.9* 36.5 37.1 PLT 390 406* 427* Chemistries: Last 72 Hours (or 3 results): Recent Labs 04/04/1334704/05/13 0336 04/06/13 0436 NA 136 | 136 137 | 137 138 K 4.4 | 4.4 4.1 | 4.1 3.9 CL 102 | 102 101 | 101 99 BICARB 27 | 27 26 | 26 28 BUN 29* | 29* 34* | 34* 39* CR 0.61 | 0.61 0.76 | 0.76 0.80 CA 8.4* | 8.4* 8.4* | 8.4* 8.9 MG 2.1 2.3 2.4 PO4 4.0 5.3* 4.5 No components found with this basename: inr IMAGING MRCP: 1. No main intrahepatic or common bile duct calculi; no intrahepatic biliary ductal dilatation. 2. Small bilateral effusions with adjacent atelectasis. Clemente Hawkins, N P - 04/06/2013 8:51 AM PDT [facility] DEPARTMENT OF SURGERY EMERGENCY GENERAL SURGERY Division of Trauma and Critical Care Attending Physician: Gallo Dubon MD Progress Note Note Date: 04/06/2013 Admission Date: 03/22/2013 JUDIE LAMBERT, Hospital Day #15 On 03/22/13, Judie Lambert is an 83 y/o lady who present to the ED in [facility] ER on 03/21 with abdominal pain with known prior history of diverticulosis. She was found to have a LLQ mass and WBC count of 17,000. CT demonstrated reji diverticular abscess. She was started on namrata penem, Levaquin and flagyl, and receive 7 liters fluid resuscitation. She was also noted wit h UA + >100,000 Lactose building drafter. She decompensated requiring levophed for blood pressure t hus she was transferred to [facility] ICU for higher level of care for septic shock. Upon arrival her situation was discussed at length with patient who did not want surgery re sulting in a colostomy therefore she was taken to IR for LLQ drain placement into pelvic abs cess. She was noted with respiratory insufficiency with Sp02 in low 80s. CXR demonstrated bilater al pleural effusions and atelectasis. She was given lasix for volume overload and was weaned off pressors by 03/23. She progressed and was transferred to the [facility] on 03/24/13 in stable c ondition. 03/25/13 she complained of abdominal distention with intractable nausea. NGT was p laced with minimal output and removed the following day tolerating a clear liquid diet. TPN was initiated due to delay in tolerating adequate diet. ABX narrowed to Augmentin for 14 da ys. The evenging of 03/25/13 she had an episode of respiratory distress. Chest xray demonstr ated worsening atelectasis bilaterally with small pleural effusion. She was given neb treat ments and lasix which resolved her symptoms. 03/26/13 she was in no distress during the day however during the evening she had an episode of respiratory distress when supine for abdominal xray. When placed in upright position he r O2sat did not improve. She was placed on oxygen noting bilateral end expiratory wheeze. She was transferred to ICU for respirartory distress. Antibiotics were switched to Vanc and zosyn due to RML consolidation concerning for aspirat ion pneumonia. She underwent a CT scan on 03/29/13 to evaluate drainage of fluid collection with no obvio us abscess or fluid collections. Her pulmonary status worsened with development of of right middle and lower lobe collapse and mild shift of the heart and mediastinum to the right wit h mild pulmonary edema. Cardiology was consulted 03/30/13 for decompensated systolic heart failure with no prior his tory of CO or heart failure. Echo demonstrated EF 30-35%. She wast started on lisinopril 5mg daily, lasix drip and switched from metoprolol to coreg 12.5mg bid. She was started on bume x 1mg bid on 04/03/13. On 04/04 she was transferred to the [facility]. A dobbhoff feeding tube was placed however she was unable to tolerate tube feedings. Lipase level was found to be elevated to 468 on 03/30 pea tali at 974 on 04/04/13. Imaging demonstrated a 1cm common bile duct stone. GI was consulted on 04/04/13 for pancreatitis. MRCP demonstrated no CBD calculi, intrahepatic or intrahepatic biliary ductal dilatation. Pelvic drain was removed. 04/06 lipase continued trending downward and tube feeds remained held and TPN was continued. Chest xray demonstated substantial improvement in the bilateral dependent areas of atelecta sis. GI was satisfied with down lawson trend of lipase and the passing of the CBD stone demons trated on MRCP. No intervention required. Procedures: 03/23: perc IR drain of intramural sigmoid abscess INTERVAL HISTORY: Copious secretions. Otherwise, doing well. REVIEW OF SYSTEMS: Pain well controlled Flatus: YES Tolerating diet: N/A on TPN. Dobbhoff tube in place, but TFs held Nausea/Vomiting: None Bowel movement: YES; When: 04/04 Progressing with Physical Therapy YES The remainder of the complete review of system was negative. OBJECTIVE: I have reviewed the interval history and events. I have revewed the patients medications, l abs, vitals, and other applicable data points. Please refer to [facility] for this information . PHYSICAL EXAM: LAST VITALS: BP 99/49 | Pulse 69 | Temp 36.7 C (98.1 F) | RR 16 | Ht 1.6 m (5' 3") | Wt 63.594 kg (140 lb 3.2 oz) | SpO2 97% | BMI 24.84 kg/(m^2) 24 Hour Vital Min/Max: Systolic (24hrs), Av mmHg, Min:95 mmHg, Max:125 mmHg Diastolic (24hrs), Av mmHg, Min:47 mmHg, Max:76 mmHg GENERAL: frail elderly female NEURO: awake, alert, and oriented LUNGS: regular non labored O2 2 Liters nasal canula no distress. Course breath sounds R>L to posterior angulo, no crackles CV: RRR ABDOMEN: soft non distended : incontinent of urine. Extremities:Warm and well perfused, ambulatory, toes pink and well perfused and no edema Patient Active Hospital Problem List: 1) *Intestinal diverticular abscess 2) Septic shock 3) Abdominal abscess 4) Hypervolemia 5) Anemia 6) Electrolyte abnormality ASSESSMENT, MEDICAL DECISION MAKING AND PLAN: JUDIE LAMBERT- 83 y.o. y/o female admitted on 06/2013 4:43 PM and hospital day 15 with following current issues. Plan today: increase activity, monitor pulmonary function, chest xray. 1. Decompensated heart failure - CXR this AM shows interval improvement in lung angulo bilaterally. - 500ml bolus of LR for 88 SBP this am reported by RN - cont low dose coreg, lisinopril & hold for low BPs. - Goal daily weight even. - standing daily weights - strict I/Os - Hold Bumex for low BPs. 2. Persistent nausea and pancreatitis - Pancreatitis likely 2/2 CBD stone, although ddx includes Lasix. - RUQ US showed 1cm CBD stone, although MRCP doesn't show stone. Its possible that stone romero s passed - Lipase continues to trend down: 767 from 873 yesterday - Hold tube feeds until lipase normalizes - NPO - DHT in place, postpyloric - Will need to be bridled before use - Continue TPN until enteral nutrition possible 3. Complex diverticulitis - resolved -10 day course of abx completed 03/30. - By CT scan, has improved significantly. Drain has been removed. - WBC remains wnl 4. Hypoxic respiratory failure -resolved - continue duonebs q6h 5. Delirium - stable, likely at baseline mental status. 6. Anemia of chronic disease and sepsis, -stable, Hgb 12.0, up from 11.7 yesterday 7. Acute on chronic pain -tylenol PRN 8. Severe malnutrition - TPN until enteral nutrition possible. - Dobhoff placed into the stomach. Hold tube feeds until pancreatitis has resolved. . 9. Hyperglycemia - insulin in TPN and some sliding scale requirements 10. Severe deconditioning -Progessing with PT, likely will discharge home with help from daughter. 11. Stress incontinence -with coughing and occasionally spontaneously. In diapers. Discharge Plan: Likely home with daughter when pancreatitis resolves, TFs started, and nutr ition improves. ID: Antibiotics: None Fluids: TPN Feeding: TPN Analgesia: tylenol PRN Sedation: not indicated Thromboprophylaxis: enoxaparin 30mg qHS Head of bed: > 45 Ulcer prophylaxis: omeprazole Glycemic control: SSI Activity/PT/OT: Up ad chacha, PT/OT Yogurt: hx of Abx, [place] [phone] pager number [facility] [phone] [facility] [place] [id number] randon Leary M D - 04/05/2013 1:42 PM PDT Gastroenterology Follow-Up Note Date: 04/05/2013 IMPRESSION/PLAN: Ms. Lambert is a 83 year-old woman with a history of CAD, CHF, COPD, and diverticulosis who pr esented with abdominal pain to an outside hospital and found to have a diverticular abscess with development of septic shock requiring transfer to [facility], now s/p IR-guided pelvic drain placement with a prolonged hospital course in the setting of CHF, delirium, deconditioning, and malnutrition requiring tube feeding, with recent development of nausea, who was found on U/S imaging to have CBD dilation with a possible stone retained in the duct. She remains asymptomatic; her LFTs are unchanged and she has no other symptoms or signs to suggest worsening biliary pathology. We await the final report of the MRCP, but given her cl inical stability would not proceed with an ERCP today. RECOMMENDATIONS - awaiting final read of MRCP Thank you for this consult; we will continue to follow. This plan was discussed and formula randi with the gastroenterology attendings, Dr. Workman. Brandon Leary MD Fellow, Gastroenterology Pager: [phone] INTERVAL HISTORY: Ms. Lambert reports feeling well this morning. No new complaints. Says is not having abdominal pain. INPATIENT MEDICATIONS acetaminophen (TYLENOL) tablet 325 mg, 325 mg, Oral, Q4H PRN albuterol-ipratropium (DUO-NEB) nebulizer solution 3 mL, 3 mL, Inhalation, Q6H bumetanide (BUMEX) tablet 1 mg, 1 mg, Oral, BID ( and ) carvedilol (COREG) tablet 3.125 mg, 3.125 mg, Oral, BID W/MEALS cholecalciferol (Vitamin D3) (VITAMIN D-3) tablet 2,000 Units, 2,000 Units, Oral, DAILY citalopram (CELEXA) tablet 20 mg, 20 mg, Oral, DAILY dextrose 50 % injection 12.5 g, 25 mL, Intravenous, PRN docusate sodium (COLACE) capsule 100 mg, 100 mg, Oral, BID enoxaparin (aka LOVENOX) injection 30 mg, 30 mg, Subcutaneous, QPM fat emulsion IV infusion, 250 mL, Intravenous, Q MO-WE-FR fat emulsion IV infusion, 250 mL, Intravenous, TPN-2100 glucagon (GLUCAGEN) injection 1 mg, 1 mg, Intramuscular, PRN glucose chewable tablet 16 g, 16 g, Oral, PRN heparin 10 unit/mL IV flush syringe 50 Units, 50 Units, Intravenous, PRN hydrocortisone 1 % cream, , Topical, BID insulin lispro (HUMALOG) injection, , Subcutaneous, Q6H lactobacillus rhamnosus (GG) (CULTURELLE) 15 billion cell capsule 1 Cap, 1 Cap, Feeding Tub e, DAILY levothyroxine tablet 125 mcg, 125 mcg, Oral, DAILY lidocaine (LMX 4) 4 % cream, , Topical, PRN lisinopril (PRINIVIL) tablet 5 mg, 5 mg, Oral, DAILY menthol-zinc oxide (CALAZIME) topical paste, , Topical, BID PRN multivitamin 1 Cap, 1 Cap, Oral, DAILY nystatin (MYCOSTATIN) powder, , Topical, BID omeprazole (PRILOSEC) capsule 20 mg, 20 mg, Oral, DAILY ondansetron (aka ZOFRAN) injection 4 mg, 4 mg, Intravenous, Q12H PRN prochlorperazine (COMPAZINE) injection 2.5-5 mg, 2.5-5 mg, Intravenous, Q4H PRN simvastatin (ZOCOR) tablet 20 mg, 20 mg, Oral, QPM sodium chloride (HYPER-HEVER) 7 % nebulizer solution 4 mL, 4 mL, Inhalation, Q6H TPN with famotidine IV infusion (ADULT), , Intravenous, TPN-2100 EXAM BP 125/76 | Pulse 80 | Temp 36.8 C (98.2 F) | RR 16 | Ht 1.6 m (5' 3") | Wt 66.316 kg ( 146 lb 3.2 oz) | SpO2 92% | BMI 25.9 kg/(m^2) Systolic (24hrs), Av mmHg, Min:86 mmHg, Max:125 mmHg Diastolic (24hrs), Av mmHg, Min:45 mmHg, Max:76 mmHg Pulse Av.7 Min: 77 Max: 86 Temp Av.7 C (98.1 F) Min: 36.5 C (97.7 F) Max: 37 C (98.6 F) Resp Av.3 Min: 16 Max: 18 SpO2 Av % Min: 90 % Max: 93 % Gen: Chronically ill-appearing woman of stated age lying in bed in NAD. HEENT: Sclera clear. MMM. CV: Normal S1, S2. RRR. Pulm: Breathing comfortably. Abd: Normal bowel sounds. Soft, nondistended. No tenderness to deep palpation of RUQ or oth er quadrants. No hepatomegaly appreciated. No rashes or bruises.Well-healed abdominal scar m idline. Psych: Alert, oriented. LABS CBC with diff last 72 hours (or 3 results) Recent Labs 04/03/13 0350 04/04/13 0348 04/05/13 0336 WBC 8.82 9.33 7.67 HB 10.0* 10.8* 11.7* HCT 32.1* 34.9* 36.5 PLT 354 390 406* Chemistries: Last 72 Hours (or 3 results): Recent Labs 04/03/13 0350 04/04/13 0348 04/05/13 0336 NA 137 | 137 136 | 136 137 | 137 K 4.6 | 4.6 4.4 | 4.4 4.1 | 4.1 CL 105 | 105 102 | 102 101 | 101 BICARB 26 | 26 27 | 27 26 | 26 BUN 26* | 26* 29* | 29* 34* | 34* CR 0.49* | 0.49* 0.61 | 0.61 0.76 | 0.76 CA 8.0* | 8.0* 8.4* | 8.4* 8.4* | 8.4* MG 2.0 2.1 2.3 PO4 3.2 4.0 5.3* No components found with this basename: inr IMAGING MRCP pending; preliminary read does not clearly show stone in the CBD Sandoval Doherty MD - 04/05/2013 8:12 AM PDTI have discussed the case with the resident team, and I agree with the assessment and plan as outlined in the note. SANDOVAL WILLARD MD OHoJulissa cai MD - 04/05/2013 8:12 AM PDT [facility] DEPARTMENT OF SURGERY EMERGENCY GENERAL SURGERY Division of Trauma and Critical Care Attending Physician: Gallo Dubon MD Progress Note Note Date: 04/05/2013 Admission Date: 03/22/2013 JUDIE LAMBERT, Hospital Day #14 HPI: 83 y.o. y/o female admitted on 03/22/2013 with intramural diverticular abscess s/p IR d rain placement 03/12. Hospital course complicated by respiratory distress, pancreatitis, malnu trition. INTERVAL HISTORY and SUBJECTIVE: Doing well, denies pain. Ambulating, voiding. No chest p ain or shortness of breath. REVIEW OF SYSTEMS: Pain well controlled Flatus: YES Tolerating diet: N/A Nausea/Vomiting: None Bowel movement: YES; When: Yesterday AM Progressing with Physical Therapy YES The remainder of the complete review of system was negative. OBJECTIVE: I have reviewed the interval history and events. I have revewed the patients medications, l abs, vitals, and other applicable data points. Please refer to [facility] for this information . PHYSICAL EXAM: LAST VITALS: BP 97/57 | Pulse 77 | Temp 36.7 C (98.1 F) | RR 16 | Ht 1.6 m (5' 3") | Wt 66.316 kg (146 lb 3.2 oz) | SpO2 92% | BMI 25.9 kg/(m^2) 24 Hour Vital Min/Max: Systolic (24hrs), Av mmHg, Min:86 mmHg, Max:105 mmHg Diastolic (24hrs), Av mmHg, Min:43 mmHg, Max:57 mmHg GENERAL: cooperative and pleasant NEURO: awake, alert LUNGS: CTA bilateral CV: RRR ABDOMEN: non tender, soft, active BS : diffuse erythematous rash over perineal, labial region with nystatin powder in place. Rash is minimally tender to palpation. Extremities:Warm and well perfused, SCD's in place Patient Active Problem List Diagnosis Intestinal diverticular abscess Septic shock Abdominal abscess Hypervolemia Anemia Electrolyte abnormality IMAGING: Preliminary Read: CBD stone not well visualized ASSESSMENT, MEDICAL DECISION MAKING AND PLAN: 83 y.o. y/o female admitted on 03/22/2013 4:4 3 PM and hospital day 14. Active medical problems as listed below: 1. Decompensated heart failure - cont low dose coreg, lisinopril & hold for low BPs. - Goal daily weight even. - standing daily weights - strict I/Os - cont 1mg Bumex BID per cardiology recommendations 2. Persistent nausea and pancreatitis - Pancreatitis likely 2/2 CBD stone, although ddx includes Lasix. - RUQ US shows 1cm CBD stone, although MRCP prelim read doesn't show well-visualized stone - Lipase down to 873 from 974 yest - Continue to hold tube feeds - NPO - DHT in place, postpyloric - Will need to be bridled before use - Inc TPN back to full nutritional goal - f/u with GI as to whether ERCP indicated pending final read of MRCP 3. Complex diverticulitis - resolved -10 day course of abx completed 03/30. - By CT scan, has improved significantly. Drain has been removed. - WBC remains wnl 4. Hypoxic respiratory failure -resolved - continue duonebs q6h 5. Delirium - stable, likely at baseline mental status. 6. Anemia of chronic disease and sepsis, -stable, Hgb 11.7, up from 10.8 yesterday 7. Acute on chronic pain -tylenol PRN 8. Severe malnutrition - Increase TPN to full nutritional goal. - Dobhoff placed yesterday. Hold tube feeds. 9. Hyperglycemia - insulin in TPN and some sliding scale requirements 10. Severe deconditioning -needs PT 5 days/week, anticipate skilled rehab requirements at discharge 11. Stress incontinence -with coughing and occasionally spontaneously. In diapers. Discharge Plan: To rehab facility when pancreatitis resolves, TFs started, and nutrition im proves. ID: Antibiotics: None Fluids: TPN Feeding: TPN Analgesia: tylenol PRN Sedation: not indicated Thromboprophylaxis: enoxaparin 30mg qHS Head of bed: > 45 Ulcer prophylaxis: omeprazole Glycemic control: SSI Activity/PT/OT: Up ad chacha, PT/OT Yogurt: hx of Abx, daily culturelle capsule Julissa Cortes MD General Surgery Resident, PGY1 Pager [phone] [facility] A [address] [place] [address] Julissa Amato MD - 04/04/2013 11:[address] [facility] DEPARTMENT OF SURGERY EMERGENCY GENERAL SURGERY Division of Trauma and Critical Care Attending Physician: Gallo Dubon MD Progress Note Note Date: 04/04/2013 Admission Date: 03/22/2013 JUDIE LAMBERT, Hospital Day #13 HPI: 83 y.o. y/o female admitted on 03/22/2013 with intramural diverticular abscess s/p IR d rain placement 03/12 INTERVAL HISTORY and SUBJECTIVE: Lipase continues to rise, 974 this AM from 816 yesterday. RUQ US shows 1cm CBD stone. Subjectively, she is doing well. Her pain is well controlled, she is ambulating, voiding. No chest pain or dyspnea. REVIEW OF SYSTEMS: Pain well controlled Flatus: YES Tolerating diet: Yes Nausea/Vomiting: None Bowel movement: YES; When: Last night Progressing with Physical Therapy YES The remainder of the complete review of system was negative. OBJECTIVE: I have reviewed the interval history and events. I have revewed the patients medications, l abs, vitals, and other applicable data points. Please refer to [facility] for this information . PHYSICAL EXAM: LAST VITALS: BP 104/43 | Pulse 72 | Temp 36.8 C (98.2 F) | RR 18 | Ht 1.6 m (5' 3") | W t 67.042 kg (147 lb 12.8 oz) | SpO2 92% | BMI 26.19 kg/(m^2) 24 Hour Vital Min/Max: Systolic (24hrs), Av mmHg, Min:91 mmHg, Max:119 mmHg Diastolic (24hrs), Av mmHg, Min:43 mmHg, Max:56 mmHg GENERAL: pleasant, resting comfortably in bed, Dobhoff in place NEURO: awake, alert LUNGS: CTA bilateral CV: RRR ABDOMEN: Soft, nondistended, nontender, incision c/d/i : Patient voiding without difficulty, uses diaper d/t incontinence Extremities:Warm and well perfused, SCD's in place Patient Active Problem List Diagnosis Intestinal diverticular abscess Septic shock Abdominal abscess Hypervolemia Anemia Electrolyte abnormality ASSESSMENT, MEDICAL DECISION MAKING AND PLAN: 83 y.o. y/o female admitted on 03/22/2013 4:4 3 PM and hospital day 13. Active medical problems as listed below: 1. Decompensated heart failure - cont low dose coreg, lisinopril. - Goal daily weight even. - standing daily weights - strict I/Os - 1mg Bumex BID per cardiology recommendations 2. Persistent nausea and pancreatitis - RUQ US shows 1cm CBD stone - Lipase continues to trend up - 974 this morning - Pancreatitis likely 2/2 CBD stone, although ddx includes Lasix. - NPO - To OR with GI for ERCP - DHT in place, postpyloric - hold off on TF until after ERCP 3. Complex diverticulitis - resolved -10 day course of abx completed 03/30. - By CT scan, has improved significantly. Drain has been removed. - WBC wnl 4. Hypoxic respiratory failure -resolved - continue duonebs q6h 5. Delirium - continues to improve. 6. Anemia of chronic disease and sepsis, -stable, Hgb 10.8, up from 10.0 yesterday 7. Acute on chronic pain -tylenol PRN 8. Severe malnutrition - on TPN. - Dobhoff placed yesterday. Hold tube feeds given rising lipase. 9. Hyperglycemia -controlled with insulin in TPN and some sliding scale requirements 10. Severe deconditioning -needs PT 5 days/week, anticipate skilled rehab requirements at discharge 11. Stress incontinence -with coughing and occasionally spontaneously. In diapers. Discharge Plan: To rehab facility when pancreatitis resolves, TFs started, and nutrition i mproves. ID: Antibiotics: None Fluids: TPN Feeding: TPN Analgesia: tylenol PRN Sedation: not indicated Thromboprophylaxis: enoxaparin 30mg qHS Head of bed: > 45 Ulcer prophylaxis: omeprazole Glycemic control: SSI Activity/PT/OT: Up ad chacha, PT/OT Yogurt: hx of Abx, daily culturelle capsule Julissa Cortes MD General Surgery Resident, PGY1 Pager [phone] [facility] [facility] [place] [address] Lee Estes M D - 04/04/2013 9:54 AM PDT INPATIENT CARDIOLOGY CONSULT FOLLOW UP NOTE Admit date: 03/22/2013 Hospital day: 13 24hr event: - Patient reports doing well. She is resting comfortably this AM and states that she has n o chest pain, dyspnea, lightheadedness, palpitations, no fever or chills. - Urine output has not been measured, but she has urinated 5x over the past 24 hour period. She states that she has a good response to bumex. - Lipase, however, continues to rise. Imaging has shown a retained common bile duct stone as a possible source of her pancreatitis. Scheduled Medications Medication Dose Route Frequency Last Rate albuterol-ipratropium (DUO-NEB) nebulizer solution 3 mL 3 mL Inhalation Q6H bumetanide (BUMEX) tablet 1 mg 1 mg Oral BID (08 and 17) carvedilol (COREG) tablet 3.125 mg 3.125 mg Oral BID W/MEALS cholecalciferol (Vitamin D3) (VITAMIN D-3) tablet 2,000 Units 2,000 Units Oral DAILY citalopram (CELEXA) tablet 20 mg 20 mg Oral DAILY docusate sodium (COLACE) capsule 100 mg 100 mg Oral BID enoxaparin (aka LOVENOX) injection 30 mg 30 mg Subcutaneous QPM hydrocortisone 1 % cream Topical BID insulin lispro (HUMALOG) injection Subcutaneous Q6H lactobacillus rhamnosus (GG) (CULTURELLE) 15 billion cell capsule 1 Cap 1 Cap Feeding Tube DAILY levothyroxine tablet 125 mcg 125 mcg Oral DAILY lisinopril (PRINIVIL) tablet 5 mg 5 mg Oral DAILY multivitamin 1 Cap 1 Cap Oral DAILY nystatin (MYCOSTATIN) cream Topical BID nystatin (MYCOSTATIN) suspension 500,000 Units 500,000 Units Oral QID omeprazole (PRILOSEC) capsule 20 mg 20 mg Oral DAILY simvastatin (ZOCOR) tablet 20 mg 20 mg Oral QPM sodium chloride (HYPER-HEVER) 7 % nebulizer solution 4 mL 4 mL Inhalation Q6H TPN with famotidine IV infusion (ADULT) Intravenous TPN-2100 PRN Medications Medication Dose Route Frequency Last Rate acetaminophen (TYLENOL) tablet 325 mg 325 mg Oral Q4H PRN dextrose 50 % injection 12.5 g 25 mL Intravenous PRN glucagon (GLUCAGEN) injection 1 mg 1 mg Intramuscular PRN glucose chewable tablet 16 g 16 g Oral PRN heparin 10 unit/mL IV flush syringe 50 Units 50 Units Intravenous PRN lidocaine (LMX 4) 4 % cream Topical PRN menthol-zinc oxide (CALAZIME) topical paste Topical BID PRN ondansetron (aka ZOFRAN) injection 4 mg 4 mg Intravenous Q12H PRN 4 mg (04/02/13 1554) prochlorperazine (COMPAZINE) injection 2.5-5 mg 2.5-5 mg Intravenous Q4H PRN 5 mg ( 2210) Allergies Allergen Reactions Keflex (Cephalexin) Nausea Lasix (Furosemide) Vomiting Implicated in episode of pancreatitis 03/31/2013 Nitrofurantoin Sodium Unknown Physical Exam: Last Vitals: Last Vitals: BP 91/49 | Pulse 71 | Temp 36.5 C (97.7 F) | RR 16 | Ht 1.6 m (5' 3") | Wt 67.042 kg (147 lb 12.8 oz) | SpO2 95% | BMI 26.19 kg/(m^2) 24 Hour Vital Min/Max: Systolic (24hrs), Av mmHg, Min:91 mmHg, Max:119 mmHg Diastolic (24hrs), Av mmHg, Min:45 mmHg, Max:56 mmHg Pulse Min: 69 Max: 81 Temp Min: 36.5 C (97.7 F) Max: 36.9 C (98.4 F) Resp Min: 16 Max: 16 SpO2 Min: 90 % Max: 96 % Intake/Output Summary (Last 24 hours) at 04/04/13 0959 Last data filed at 04/04/13 0500 Gross per 24 hour Intake 920 ml Output 350 ml Net 570 ml General Appearance: Appears comfortable, NAD HEENT: PERRLA, EOMI, sclera anicteric, MM moist Neck: JVP ~8 to 10 cm (above clavicle at ~ 60 degrees) Lungs: Decrease breath sounds at base, no crackles. Otherwise clear. Cardiovascular: RRR, S1 S2 normal. no m/r/g Back: Minimal pre sacral edema. Extremity: warm and well perfused. Pulses 2+/2. No edema Data: Lab Results Component Value Date WBC 9.33 04/04/2013 HB 10.8 04/04/2013 HCT 34.9 04/04/2013 PLT 390 04/04/2013 MCV 93.1 04/04/2013 Lab Results Component Value Date NA 136 04/04/2013 NA 136 04/04/2013 K 4.4 04/04/2013 K 4.4 04/04/2013 CL 102 04/04/2013 CL 102 04/04/2013 BICARB 27 04/04/2013 BICARB 27 04/04/2013 BUN 29 04/04/2013 BUN 29 04/04/2013 CR 0.61 04/04/2013 CR 0.61 04/04/2013 GLU 111 04/04/2013 CA 8.4 04/04/2013 CA 8.4 04/04/2013 Recent Labs 04/02/13 0204 04/03/13 0350 04/04/13 0348 AST 26 19 33 ALT 11* 12 13 TBILI 0.2* 0.3 0.4 AP 65 54 64 ALB 2.3* 2.3* 2.7* TP 5.8* 5.6* 6.6 Lab Results Component Value Date LIPASE 974* 04/04/2013 IMPRESSION: 1. Acute on chronic systolic heart failure, stage C, improved with medical management and d iuresis. 2. LV systolic dysfunction of unkown underlying etiology 3. Diverticulitis with abscess s/p IR darinage and antibiotic therapy 4. Pancreatitis - likely due to retained common bile duct stone. Recommendations: 1. Continue current cardiac medications. 2. Consider daily weights; I & Os to maintain fluid balance. She appears euvolemic to sli ghtly up (JVP) today. Lee Arthur MD Meredith Villareal MD - 04/03/2013 7:26 AM PDTI saw and evaluated the patient. I agree with the findings an d the plan of care as documented in the resident s note. MEREDITH STEVEN MD Matthew Bustillo MD - 04/03/2013 7:26 AM PDT [facility] DEPARTMENT OF SURGERY EMERGENCY GENERAL SURGERY Division of Trauma and Critical Care Attending Physician: Gallo Dubon MD Progress Note Note Date: 04/03/2013 Admission Date: 03/22/2013 JUDIE LAMBERT, Hospital Day #12 HPI: 83 y.o. y/o female admitted on 03/22/2013 with intramural diverticular abscess s/p IR drain placement 03/12 Patient Active Problem List Diagnosis Date Noted Septic shock 03/23/2013 Abdominal abscess 03/23/2013 Hypervolemia 03/23/2013 Anemia 03/23/2013 Electrolyte abnormality 03/23/2013 Intestinal diverticular abscess 03/22/2013 INTERVAL HISTORY and SUBJECTIVE: Transferred to [facility] yesterday. Dobhoff tube placed ye sterday with CXR showing placement in the stomach. No acute events overnight. REVIEW OF SYSTEMS: Pain well controlled Flatus: YES Tolerating diet: No Nausea/Vomiting: None Bowel movement: YES; When: Yesterday evening Progressing with Physical Therapy YES The remainder of the complete review of system was negative. OBJECTIVE: I have reviewed the interval history and events. I have revewed the patients medications, l abs, vitals, and other applicable data points. Please refer to [facility] for this information . PHYSICAL EXAM: LAST VITALS: BP 105/45 | Pulse 76 | Temp 37 C (98.6 F) | RR 14 | Ht 1.6 m (5' 3") | Wt 73.664 kg (162 lb 6.4 oz) | SpO2 91% | BMI 28.78 kg/(m^2) 24 Hour Vital Min/Max: Systolic (24hrs), Av mmHg, Min:91 mmHg, Max:144 mmHg Diastolic (24hrs), Av mmHg, Min:36 mmHg, Max:113 mmHg GENERAL: well-developed, well-nourished NEURO: AAOx1 LUNGS: CTA bilateral CV: RRR ABDOMEN: non tender, soft, active BS, incision from IR drainage c/d/i : Keys out, patient voiding without difficulty, using disposable underwear due to incont inence Extremities:Warm and well perfused, SCD's in place Lab Results Component Value Date WBC 8.82 04/03/2013 HB 10.0 04/03/2013 HCT 32.1 04/03/2013 PLT 354 04/03/2013 MCV 96.4 04/03/2013 Lab Results Component Value Date NA 137 04/03/2013 NA 137 04/03/2013 K 4.6 04/03/2013 K 4.6 04/03/2013 CL 105 04/03/2013 CL 105 04/03/2013 BICARB 26 04/03/2013 BICARB 26 04/03/2013 BUN 26 04/03/2013 BUN 26 04/03/2013 CR 0.49 04/03/2013 CR 0.49 04/03/2013 GLU 130 04/03/2013 CA 8.0 04/03/2013 CA 8.0 04/03/2013 Lab Results Component Value Date LIPASE 816* 04/03/2013 ASSESSMENT, MEDICAL DECISION MAKING AND PLAN: JUDIE LAMBERT- 83 y.o. y/o female admitted on 06/2013 4:43 PM and hospital day 12 with following current issues. 1. Decompensated heart failure -low dose coreg, lisinopril. -Goal daily weight even. - started 0.5mg Bumex - 2 doses today per cardiology recommendations 2. Persistent nausea and pancreatitis - prior cholecystectomy. CT scan shows no ductal dilation. - Lipase trending up - 816 this morning - May be lasix induced, iatrogenic pancreatitis. Last dose of Lasix on 03/30 - will hold off on starting tube feeds for the moment, DHT was advanced this morning with t he intent of placing it postpyloric, once it is confirmed to be postpyloric, TF will be init iated 3. Complex diverticulitis - resolved -10 day course of abx completed. - By CT scan, has improved significantly. Drain has been removed - WBC 8.82 this morning 4. Hypoxic respiratory failure -resolved - SPO2 stable overnight 5. Delirium - continues to improve. - Oriented to person, and place (only knows state) 6. Anemia of chronic disease and sepsis, -stable and no indication for transfusion 7. Acute on chronic pain -tylenol PRN 8. Severe malnutrition - on TPN. - DHT placed today, will hold off on tube feeds due to increased lipase 9. Hyperglycemia -controlled with insulin in TPN and some sliding scale requirements 10. Severe deconditioning -needs PT, anticipate skilled rehab requirements at discharge 11. Stress incontinence -with coughing and occasionally spontaneously. In diapers. Discharge Plan: To rehab, once nutritional status improves and TF have been initiated and lipase normalized ID: Antibiotics: none - completed 10 day course Fluids: TPN Feeding: TPN, plan for TF per DHT Analgesia: tylenol Sedation: n/a Thromboprophylaxis: enoxeparin 30mg qHS Head of bed: > 30 Ulcer prophylaxis: omeprazole Glycemic control: insulin SS Activity/PT/OT: ad chacha Yogurt: ABX on Probi[place]: [place] [phone] pager number [facility] [address] [facility] [place] [address] Jose Tiwari MD - 04/02/2013 9:29 AM PDTI was present and rounded with the VIDEO GAMES STORYWRITER today. I interviewed and exam ined the patient. I reviewed the history, as documented today. I agree with the VIDEO GAMES STORYWRITER's asses sment and plan. Safe to transfer. Pt stable Mike Mello MD FACS Trauma/Critical Care/ Emergency General Surgery Katy Cook PA-C - 04/02/2013 9:29 AM PDTDiscussed with [facility] and plan for [facility] transfer. Chart reviewed, carol ent examined. We completely agree. Active issues: Decompensated heart failure low dose coreg, lisinopril. Goal daily weight even. If needs ge ntle diuresis in the future, diamox are bumex are reasonable choices. Hypoxic respiratory failure resolved but did require aggressive pulm toilet for mucus plugg ing. Delirium continues to improve. Does best with minimized centrally acting meds. Persistent nausea and pancreatitis prior cholecystectomy. CT scan no ductal dilation. Most consistent with lasix induced, iatrogenic pancreatitis. Clinically resolved after discontinu ation and tolerating advancing diet. Anemia of chronic disease and sepsis, stable and no indication for transfusion Acute on chronic pain tylenol Severe malnutrition on TPN. Told if calorie counts low then would have DHT placed tomorrow. Hyperglycemia controlled with insulin in TPN and some sliding scale requirements Severe deconditioning needs PT, anticipate skilled rehab requirements at discharge Stress incontinence with coughing and occasionally spontaneously. In diapers. Resolved problems/Plan: Complex diverticulitis will complete 10 days of coverage. By CT scan, has improved signific antly. Drain has been removed Agree with transfer, has been discussed with Dr. Mello. Claire Donahue PA-C Dept of Surgery SICU/Trauma Meredith Villareal MD - 04/02/2013 5:09 AM PDTI saw and evaluated the patient. I agree with the findings and the plan of care as documented in the resident s note. MEREDITH STEVEN MD atrin Yeung M D - 04/02/2013 5:09 AM PDT [facility] DEPARTMENT OF SURGERY EMERGENCY GENERAL SURGERY Division of Trauma and Critical Care Attending Physician: Gallo Dubon MD Progress Note Note Date: 04/02/2013 Admission Date: 03/22/2013 JUDIE LAMBERT, Hospital Day #11 INTERVAL HISTORY and SUBJECTIVE: Remained normotensive Minimal PO intake OBJECTIVE: I have reviewed the interval history and events. I have revewed the patients medications, l abs, vitals, and other applicable data points. Please refer to [facility] for this information . Lab Results Component Value Date WBC 10.74 04/02/2013 HB 10.4 04/02/2013 HCT 32.6 04/02/2013 PLT 358 04/02/2013 MCV 95.0 04/02/2013 Lab Results Component Value Date NA 141 04/02/2013 NA 141 04/02/2013 K 4.4 04/02/2013 K 4.4 04/02/2013 CL 106 04/02/2013 CL 106 04/02/2013 BICARB 28 04/02/2013 BICARB 28 04/02/2013 BUN 27 04/02/2013 BUN 27 04/02/2013 CR 0.55 04/02/2013 CR 0.55 04/02/2013 GLU 118 04/02/2013 GLU 118 04/02/2013 CA 8.1 04/02/2013 CA 8.1 04/02/2013 Lab Results Component Value Date LIPASE 743* 04/02/2013 IMAGE: NA PHYSICAL EXAM: LAST VITALS: BP 107/49 | Pulse 80 | Temp 36.8 C (98.2 F) | RR 15 | Ht 1.6 m (5' 3") | W t 69.6 kg (153 lb 7 oz) | SpO2 93% | BMI 27.19 kg/(m^2) 24 Hour Vital Min/Max: Systolic (24hrs), Av mmHg, Min:76 mmHg, Max:142 mmHg Diastolic (24hrs), Av mmHg, Min:37 mmHg, Max:76 mmHg GENERAL: asleep LUNGS: unlabored ABD: nontender CV: NSR Extremities:Warm and well perfused Patient Active Problem List Diagnosis Intestinal diverticular abscess Septic shock Abdominal abscess Hypervolemia Anemia Electrolyte abnormality ASSESSMENT, MEDICAL DECISION MAKING AND PLAN: Ms. Lambert is a 83F with intramural diverticular abscess s/p IR drain placement 03/12 - Diverticulitis: leukocytosis resolved, minimal abd discomfort, finished course of antibio tics. Minimal PO intake. Recommend dht for enteric feeding. - Pancreatitis: decreasing lipase - can transfer to regular floor[place] [phone] [facility] [address] [facility] [place] [facility] Gregory Granado MD - 04/01/2013 11:20 AM PDTICU Attending: I saw and examined Judie Lambert ([id number]) with Claire Donahue PA-C on 04/01/13 and agree with the assessment and plan as outlined in this note and participated in the planning of care. Her hypoxia is improved with aggressive pulmonary hygiene and down to 6 lpm NC. Decompensa randi heart failure improved with diuresis, carvedilol and lisinopril. Due to persistent miguelina sea, lipase checked - 766. May be related to medication - specifically furosemide. Will st op furosemide - alternatives are acetazolamide or bumetanide. Diverticulitis resolving, per cutaneous drain removed. I spent 42 minutes at the beside providing critical care exclusive of time documented by kirby MOTTA. Gregory Young MD A P Supervisor Trauma, Critical Care, Acute Care Surgery Katy Cook P A-C - 04/01/2013 11:20 AM PDT Trauma / Surgical Critical Care Service - Progress Note Name: JUDIE LAMBERT Date: 04/01/2013 Time: 11:23 AM Author: KATY DONAHUE PA-C HPI: 83 y.o. y/o female admitted on 03/22/2013 4:43 PM with below current issues. Hospital Day #10 ICU Day #6 Procedures: 03/22: IR drain placement into intramural sigmoid abscess Access: R CVC (03/22) ABX: Cipro/flagyl 03/22-03/23, augmentin 03/25-03/26, Vanco 03/26-03/30, Zosyn 03/27-03/31 24hr events: Coreg held last night for low BP, required fluid bolus overnight. Lasix stopped in afterno on for concerns that it was driving pancreatitis. Pt reports nausea has resolved and no emes is overnight. Good UOP. Improved respiratory toilet with copious mucus plugs, requiring less O2. Current meds: Tylenol PRN dubneb PRN Coreg 3.125mg BID celexa Docusate 100mg BID lovenox qhs Haldol PRN Dilaudid PRN Lisinopril 5mg daily SSI culturelle Levothyroxine 125mcg daily zofran PRN hypersal nebs TPN with lipids Labs: EPIC reviewed Significant Results K 4.1 Mg 2.1 BUN/Cr 26/0.56 Lipase 766 WBCs 11.5 HCT 31.6 Plts 335 Imaging: None new Vitals: Last 24 hour min/max Temp: 37.4 C (99.3 F) Temp Min: 36.8 C (98.2 F) Max: 37.7 C (99.9 F) Pulse: 84 Pulse Min: 69 Max: 93 Resp: 15 Resp Min: 12 Max: 27 BP: 116/65 mmHg BP Min: 48/30 Max: 125/78 SpO2: 99 % SpO2 Min: 89 % Max: 100 % Body mass index is 27.19 kg/(m^2). Intake/Output Summary (Last 24 hours) at 04/01/13 1123 Last data filed at 04/01/13 1100 Gross per 24 hour Intake 2466.29 ml Output 1970 ml Net 496.29 ml Physical exam: Awake and alert, oriented to person and hospital. Briskly follows commands. In no distress. Lungs clear, improved aeration. No wheezing or rhonchi. RRR Abdomen soft, flat, nontender Ext warm and well perfused, no edema Keys draining yellow urine Assessment: 83y/o female with HTN, CAD presents with complex diverticulitis s/p nonoperative managemen t with percutaneous drain into intramural abscess. Postop complicated by nausea/failure to t hrive and respiratory distress/hypoxia require repeat admission to ICU. Active problem/Plan: Decompensated heart failure Bblocker, JOSEP as tolerated. I/O goal even, daily weight goal un changed. Will need PRN diamox or bumex. Hypoxic respiratory failure multifactoral with significant mucus plugging and atelectasis a s well as pulmonary edema and effusions. Cont pulmonary therapy. Less aggressive diuresis. Delirium improving. cont PRN dilaudid for pain and minimize all other centrally acting meds . PRN haldol is available. Persistent nausea and pancreatitis prior cholecystectomy. CT scan no ductal dilation. Possi vanessa medication induced, most likely lasix. Will list as adverse drug reaction. Clinically im proving. Will trend daily lipase. Complex diverticulitis will complete 10 days of coverage. By CT scan, has improved signific antly. Drain has been removed Anemia of chronic disease and sepsis, stable and no indication for transfusion Acute on chronic pain tylenol and PRN dilaudid Severe malnutrition on TPN. Now that nausea is resolved we can advance diet as tolerated. s upplement with protein shake. Hyperglycemia controlled with insulin in TPN and some sliding scale requirements Severe deconditioning will order PT Resolved problems/Plan: Complex diverticulitis will complete 10 days of coverage. By CT scan, has improved signific antly. Drain has been removed F:TPN and advance diet A:dilaudid and if okay with orals then oxycodone S:none T:lovenox H:HOB elevated U:zantac in TPN G:SSI Lines:Remove keys. CVC for TPN. Dispo:Advance diet. PT consult. Wean O2. Potentially transfer to [place] tomorrow. Discussed with Dr. Young on SICU rounds. Claire Donahue PA-C Dept of Surgery SICU/Trauma Jacoby Young MD - 6:27 AM PDTBrief Overnight Assessment Interval: 1L total of fluids administered for systolic pressures in the 40-60s. CVP pre-bolusing noted to be low (~4). I assessed the patient at 1900. S: Asleep. Easily arousable. No complaints. O: Systolic BP in the 90s. UOP still 30-100 ml/hr. Mid 90s with 8 liters. JVP 8-9 cm RRR, S1 S2 unchanged, no m/r/g CTAB Soft, nd, nt Warm, no edema Labs notable for a WBC of 13K. Normal creatinine with an elevated BUN at 23. A/P: Judie Lambert is a 83 y.o. Female admitted for drainage of a diverticular abscess whose course was complicated by volume overload and TTE demonstrative of depressed systolic function. He r overnight hypotension was assessed to be secondary to brisk diuresis, which is plausible g iven her 1600ml out in the AM and rising BUN. The goal for overnight was to maintain net flu id balance before considering restarting of diuretics in the morning. Jacoby An MD Secondary Spanish Teacher Pager [phone] Meredith Villareal MD - 04/01/2013 4:07 AM PDTI saw and evaluated the patient. I agree with the findings and the plan of care as documented in the resident s note. MEREDITH STEVEN MD atrin Yeung M D - 04/01/2013 4:07 AM PDT [facility] DEPARTMENT OF SURGERY EMERGENCY GENERAL SURGERY Division of Trauma and Critical Care Attending Physician: Gallo Dubon MD Progress Note Note Date: 04/01/2013 Admission Date: 03/22/2013 JUDIE LAMBERT, Hospital Day #10 INTERVAL HISTORY and SUBJECTIVE: Hypotensive last night Antihypertensives held Responded to fluid challenge OBJECTIVE: I have reviewed the interval history and events. I have revewed the patients medications, l abs, vitals, and other applicable data points. Please refer to [facility] for this information . Lab Results Component Value Date WBC 11.59 04/01/2013 HB 9.8 04/01/2013 HCT 31.6 04/01/2013 PLT 335 04/01/2013 MCV 94.0 04/01/2013 Lab Results Component Value Date NA 136 04/01/2013 K 4.0 04/01/2013 CL 100 04/01/2013 BICARB 30 04/01/2013 BUN 26 04/01/2013 CR 0.58 04/01/2013 GLU 118 04/01/2013 CA 7.7 04/01/2013 IMAGE: NA PHYSICAL EXAM: LAST VITALS: BP 96/49 | Pulse 69 | Temp 36.8 C (98.2 F) | RR 22 | Ht 1.6 m (5' 3") | Wt 69.6 kg (153 lb 7 oz) | SpO2 97% | BMI 27.19 kg/(m^2) 24 Hour Vital Min/Max: Systolic (24hrs), Av mmHg, Min:48 mmHg, Max:125 mmHg Diastolic (24hrs), Av mmHg, Min:22 mmHg, Max:88 mmHg GENERAL: asleep LUNGS: unlabored CV: NSR Extremities:Warm and well perfused Patient Active Problem List Diagnosis Intestinal diverticular abscess Septic shock Abdominal abscess Hypervolemia Anemia Electrolyte abnormality ASSESSMENT, MEDICAL DECISION MAKING AND PLAN: Ms. Lambert is a 83F with intramural diverticular abscess s/p IR drain placement 03/12 - Respiratory decompensation: continued improvement with decreasing O2 requirements - Pancreatitis: increasing lipase, medication induced? Ordering LFTs for am for further del ineation. - CHF: EF 30-35%, episodic hypotension, responded to fluid challenge. Holding antihypertens kash[place] for am. - diverticular abscess - repeat CT showed no new fluid collection, finished course of antib iotics, will discuss timing of enteric feeding. F: TPN A: tylenol, IV dilaudid S: none T: lovenox H: HOB>30 degrees U: prilosec G: well controlled Dispo: continue ICU care [place] [phone] [facility] [address] [place] [facility] [place] [id number] Gavi Cortes PA-C - 04/01/2013 12:00 AM PDTCalled to the bedside for hypotension. Pt sleeping but arousib le, follows commands and is A&O x 3. UOP as been 30-100 ml/hr off of her lasix gtt. She has 2+ radial pulses. Multiple attempts were made to get a BP on all extremities. I discussed the case with cardiology who wanted to watch and said they would come evaluate her. She remained hypotensive with a decreasing CVP from 8-4. I discussed the case with Dr. Husain who thought she was dry and that a fluid challenge would be reasonable. She was given a 500 ml bolus and BP increased to 100/60. She remained stable for about an hr when her CVP and BP again dropped. We will re-bolus with 500 ml and send a renal set, CBC, and lactic acid. Continue to hold anit-hypertensives. I spent 45 min providing critical care and counseling exclusive of time documented by the a ttending physician. GAVI MATOS PA-C Gregory Granado MD - 03/31/2013 6:55 AM PDT Trauma / Surgical Critical Care Service - Progress Note Name: JUDIE LAMBERT Date: 03/31/2013 Time: 6:55 AM Author: KATY DONAHUE PA-C HPI: 83 y.o. y/o female admitted on 03/22/2013 4:43 PM with below current issues. Hospital Day #9 ICU Day #5 Procedures: 03/22: IR drain placement into intramural sigmoid abscess Access: R CVC (03/22) ABX: Cipro/flagyl 03/22-03/23, augmentin 03/25-03/26, Vanco 03/26-03/30, Zosyn 03/27-03/31 24hr events: Cardiology consulted for heart failure and agree with plan for diuresis, JOSEP, and Bblocker s. Given moderate dose of coreg with persistent hypotension to follow. Brisk response to diu resis. Weaning on high flow NC. Clinically improving. Some improvement in nausea with haldol . Current meds: IV acetaminophen PRN duoneb Coreg 3.125mg BID celexa Docusate lovenox qhs TPN/lipids Lasix infusion Haldol PRN Dilaudid PRN SSI culturelle Levothyroxine Lisinopril 5mg daily Hypersal nebs zofran compazine Labs: EPIC reviewed Significant Results K 4.6 Mg 2.3 Phos 4.3 BUN/Cr 23/0.63 AST/ALT 27/16 AlkPhos 61 Tbili 0.3 Lipase 468, 622 WBCs 13.2 HCT 33.8 Plts 353 Imaging: CXR: "IMPRESSION: Unchanged right lower and middle lobe collapse with small layering bilate ral pleural effusions. Improving hydrostatic pulmonary edema. Attending Radiologists: TOPHER THAO MD" Vitals: Last 24 hour min/max Temp: 37.2 C (99 F) Temp Min: 37.1 C (98.8 F) Max: 37.6 C (99.7 F) Pulse: 72 Pulse Min: 71 Max: 117 Resp: 14 Resp Min: 13 Max: 28 BP: 100/53 mmHg BP Min: 79/47 Max: 136/80 SpO2: 97 % SpO2 Min: 94 % Max: 100 % Body mass index is 28.13 kg/(m^2). Intake/Output Summary (Last 24 hours) at 03/31/13 0655 Last data filed at 03/31/13 0616 Gross per 24 hour Intake 1748.52 ml Output 2905 ml Net -1156.48 ml Physical exam: More alert and interactive. Cooperative and following commands. Breathing appears less labo red. Lungs diminished throughout. No wheezing or rales RRR Abdomen soft, flat, nontender. Pt reporting nausea Keys draining yellow urine Ext warm and well perfused, 1+ B/L LE edema is equal bilaterally IJ site okay Assessment: 83y/o female with HTN, CAD presents with complex diverticulitis s/p nonoperative managemen t with percutaneous drain into intramural abscess. Postop complicated by nausea/failure to t hrive and respiratory distress/hypoxia require repeat admission to ICU. Active problem/Plan: Decompensated heart failure Bblocker, JOSEP, and diuresis. Hypoxic respiratory failure multifactoral with significant mucus plugging and atelectasis a s well as pulmonary edema and effusions. Diuresis and aggressive pulmonary toilet. Hypertoni c saline nebs. Needs percussion therapy and postural drainage. Mucus plugging is the main fa ctor driving her respiratory failure. Delirium cont PRN dilaudid for pain and minimize all other centrally acting meds. PRN haldo l is available. Persistent nausea and pancreatitis prior cholecystectomy. CT scan no ductal dilation. Possi vanessa medication induced, will have pharmacy evaluate. Lasix?(No thiazide and no loop- use sudheer mox or bumex) Lipids? Send lipids and lipase tomorrow AM. Complex diverticulitis will complete 10 days of coverage today By CT scan, has improved sig nificantly. Drain removed Anemia of chronic disease and sepsis, stable and no indication for transfusion Acute on chronic pain tylenol and PRN dilaudid Severe malnutrition on TPN. Will give dose of reglan and attempt to advance NGT given it is currently at the pylorus. Hyperglycemia controlled with insulin in TPN and some sliding scale requirements Resolved problems/Plan: F:TPN A:dilaudid and tylenol S:none T:Lovenox H:HOB elevated U:H2 joni in TPN G:SSI Lines:CVC for TPN and labs. Keys for strict I and O. Dispo:Cont ICU care. Coordinate with cardiology. I spent 44 minutes exclusive of time spent with Dr. Young. Claire Donahue PA-C Dept of Surgery SICU/Trauma ICU Attending: I saw and examined Judie Lambert ([id number]) with Claire Donahue PA-C on 03/31/13 and agree with the assessment and plan as outlined in this note and participated in the planning of care. Hypoxia secondary to RML/RLL mucous plugging. Plan for aggressive pulmonary hygiene and hy pertonic saline nebs. Furosemide diuresis today for decompensated heart failure. Will star t carvedilol and lisinopril today. I spent 31 minutes at the beside providing critical care exclusive of time documented by Jai Young MD A P Supervisor Trauma, Critical Care, Acute Care Surgery Meredith Villareal MD - 03/31/2013 2:27 AM PDT [facility] DEPARTMENT OF SURGERY EMERGENCY GENERAL SURGERY Division of Trauma and Critical Care Attending Physician: Gallo Dubon MD Progress Note Note Date: 03/31/2013 Admission Date: 03/22/2013 JUDIE LAMBERT, Hospital Day #9 INTERVAL HISTORY and SUBJECTIVE: Coreg started but became hypotensive soon after Minimal abdominal discomfort OBJECTIVE: I have reviewed the interval history and events. I have revewed the patients medications, l abs, vitals, and other applicable data points. Please refer to [facility] for this information . Lab Results Component Value Date WBC 15.36 03/30/2013 HB 11.3 03/30/2013 HCT 36.1 03/30/2013 PLT 368 03/30/2013 MCV 97.0 03/30/2013 Lab Results Component Value Date NA 140 03/30/2013 K 4.6 03/30/2013 CL 101 03/30/2013 BICARB 33 03/30/2013 BUN 23 03/30/2013 CR 0.63 03/30/2013 GLU 147 03/31/2013 CA 8.1 03/30/2013 IMAGE: 03/30/13 IMPRESSION: Normal bilateral lower extremity venous examination. There is no evidence of deep or superficial venous thrombosis bilaterally. 03/29 IMPRESSION: 1. No fluid in the drained left pelvic sidewall abscess. No new collection. 2. Bilateral effusions and near complete right middle and lower lobe atelectasis. Superimposed pneumonia may be present. 3. Saccular AAA. PHYSICAL EXAM: LAST VITALS: BP 81/48 | Pulse 75 | Temp 37.2 C (99 F) | RR 25 | Ht 1.6 m (5' 3") | Wt 7 2 kg (158 lb 11.7 oz) | SpO2 99% | BMI 28.13 kg/(m^2) 24 Hour Vital Min/Max: Systolic (24hrs), Av mmHg, Min:79 mmHg, Max:136 mmHg Diastolic (24hrs), Av mmHg, Min:34 mmHg, Max:101 mmHg GENERAL: asleep LUNGS: laborious CV: tachycardia ABDOMEN: drain in place Extremities:Warm and well perfused, +1 edema Patient Active Problem List Diagnosis Intestinal diverticular abscess Septic shock Abdominal abscess Hypervolemia Anemia Electrolyte abnormality ASSESSMENT, MEDICAL DECISION MAKING AND PLAN: Ms. Lambert is a 83F with intramural diverticular abscess s/p IR drain placement 03/12, with con tinued respiratory decompensation - Respiratory decompensation: mild improvement, currently on 15L high flow NC. Diuresis as needed. - CHF: EF 30-35%, cards consulted, continue diuresis, lisinopril 5mg, coreg 12.5 oral bid. - diverticular abscess - repeat CT showed no new fluid collection, IR contacted and can rem ove drain in am. Bowel still inflamed. Continue conservative therapy, NPO/zosyn. - malnutrition - continue full TPN - Drain d/c'ed this morning F: TPN A: tylenol, IV dilaudid S: none T: lovenox H: HOB>30 degrees U: prilosec G: well controlled Dispo: continue ICU care [place] [phone] [facility] A [address] [facility] [place] [facility] I saw and evaluated the patient. I agree with the findings and the plan of care as jace bryan in the resident s note. Persistent nausea today - labs demonstrate pancreatitis. Unk nown cause - may be related to medications or TPN/lipids. Will hold lasix and lipids for no w. May benefit from nasal feeding tube, especially if able to pass post-pyloric or even pos t-ligament of treitz. MEREDITH STEVEN MD leveland Ortiz PA-C - 03/30/2013 3:55 PM PDT . BRIEF VASCULAR AND INTERVENTIONAL RADIOLOGY PROGRESS NOTE AUTHOR: CLEVELAND ORTIZ PA-C Issues/Interview IR consult for LLQ abscess drain related to diverticular disease. Ms Judie Lambert is a 83 yo female transferred 03/22 for abscess related to known diverticulosi s. Now in heart failure. Data Last 24 hour min/max Temp: 37.5 C (99.5 F) Temp Min: 37 C (98.6 F) Max: 37.6 C (99.7 F) Pulse: 98 Pulse Min: 85 Max: 118 Resp: 17 Resp Min: 14 Max: 28 BP: 112/89 mmHg BP Min: 86/48 Max: 136/80 SpO2: 96 % SpO2 Min: 86 % Max: 99 % Body mass index is 28.13 kg/(m^2). L pelvic drain- 0mL/24hrs. Imaging CT ABDOMEN PELVIS 03/29 Resolution of L pelvic abscess. Bowel remains diseased and inflamed with multiple diverticu la. Assessment and Plan Diverticulosis, LLQ abscess, s/p IR drain placement 03/22. Low to no drain output. Abscess resolved by CT. Bowel remains diseased and inflamed with mu ltiple diverticula. Appreciate consult. OK to remove IR drain. Please call IR with questions or concerns. CLEVELAND ORTIZ PA-C [id number] uss Duarte - 03/30/2013 10:53 AM PDTTransthoracic echocardiogram completed. Final report to follow. Katy Cook PA-C - 03/30/2013 6:35 AM PDT Trauma / Surgical Critical Care Service - Progress Note Name: JUDIE LAMBERT Date: 03/30/2013 Time: 6:36 AM Author: KATY DONAHUE PA-C HPI: 83 y.o. y/o female admitted on 03/22/2013 4:43 PM with below current issues. Hospital Day #8 ICU Day #4 Procedures: 03/22: IR drain placement into intramural sigmoid abscess Access: R CVC (03/22) ABX: Cipro/flagyl 03/22-03/23, augmentin 03/25-03/26, Vanco 03/26-03/30, Zosyn 03/27- 24hr events: Afebrile. Labile BP. Progressive worsening hypoxia and work of breathing. Did not tolerate BiPAP. Brisk response to lasix. Continues to report nausea with low volume emesis X3. Current meds: Tylenol IV PRN duoneb PRN celexa Docusate 100mg BID lovenox 30mg qhs TPN/lipids Lasix infusion Haldol QID PRN Dilaudid PRN culturelle Levothyroxine zofran Zosyn Compazine Labs: EPIC reviewed Significant Results 7.43/43/96/28/3.3/97% K 4.6 Mg 2.3 Phos 3.7 BUN/Cr 21/0.55 BNP 22K Trop 0.09 WBCs 15.3 HCT 36.1 Plts 368 Imaging: CXR: "IMPRESSION: Complete collapse of the right middle lobe and right lower lobe, likely f rom central mucous plugging. Persistent, hydrostatic edema. Moderate right and small left pl eural effusions, unchanged. Attending Radiologists: BEBO AGUIRRE MD" Vitals: Last 24 hour min/max Temp: 37.4 C (99.3 F) Temp Min: 37 C (98.6 F) Max: 37.5 C (99.5 F) Pulse: 94 Pulse Min: 85 Max: 120 Resp: 15 Resp Min: 15 Max: 30 BP: 93/51 mmHg BP Min: 85/47 Max: 139/84 SpO2: 93 % SpO2 Min: 86 % Max: 99 % Body mass index is 28.13 kg/(m^2). Intake/Output Summary (Last 24 hours) at 03/30/13 0636 Last data filed at 03/30/13 0600 Gross per 24 hour Intake 2488 ml Output 2425 ml Net 63 ml Physical exam: Awake and alert, oriented to person and hospital only. Fatigues easily. Follows commands. Lungs with crackles throughout. Very weak cough. Tachypnea with rates ~25. sats 97% on oxym ask 10L RRR Abdomen soft, flat, nontender. Pt reports nausea and has emesis basin at bedside. Keys draining yellow urine Ext warm and well perfused, thin, 1+ edema. RIJ site okay, mild oozing. Assessment: 83y/o female with HTN, CAD presents with complex diverticulitis s/p nonoperative managemen t with percutaneous drain into intramural abscess. Postop complicated by nausea/failure to t hrive and respiratory distress/hypoxia require repeat admission to ICU. Active problem/Plan: 1. Decompensated heart failure a combination of volume overload and poor oncotic pressure. Cont lasix infusion for goal -1 to -2L today. Cont Bblocker. Will discuss with cardiology bu t may add low dose lisinopril. 2. Hypoxic respiratory failure multifactoral with significant mucus plugging and atelectasi s as well as pulmonary edema and effusions. Diuresis and aggressive pulmonary toilet. Hypert onic saline nebs. 3. Delirium cont PRN dilaudid for pain and minimize all other centrally acting meds. PRN romero ldol is available. 4. Persistent nausea will send UTI panel, lipase, and liver enzymes. Will ask RN to trial f irst haldol and if no improvement then SL nitroglycerin for nausea. No gastric obstruction o r ileus on CT yesterday. Possible that bowel is not well perfused given heart failure and ma y improve with diuresis. Also reported intolerance to cephalosporins is nausea, zosyn may be contributing to nausea. 5. Complex diverticulitis will complete 10 days of coverage tomorrow. By CT scan, has impro brenna significantly. 6. Anemia of chronic disease and sepsis, stable and no indication for transfusion 7. Acute on chronic pain tylenol and PRN dilaudid 8. Severe malnutrition on TPN, will discuss volumes and lytes with maintenance construction helper 9. Hyperglycemia controlled with insulin in TPN and some sliding scale requirements Resolved problems/Plan: F:TPN A:dilaudid and tylenol S:haldol T:lovenox and LE duplex today H:HOB elevated U:H2 joni in TPN G:insulin in TPN and SS coverage Lines:RIJ CVC for meds and labs, keys for strict I and O Dispo:Will ask cardiology to consult. Pt respiratory status remains tenuous, will remain in ICU. I spent 44 minutes exclusive of time spent with SICU attending Dr. Paredes. Claire Donahue PA-C Dept of Surgery SICU/Trauma Sharmaine Spears MD - 03/30/2013 2:04 AM PDT [facility] DEPARTMENT OF SURGERY EMERGENCY GENERAL SURGERY Division of Trauma and Critical Care Attending Physician: Gallo Dubon MD Progress Note Note Date: 03/30/2013 Admission Date: 03/22/2013 JUDIE LAMBERT, Hospital Day #8 INTERVAL HISTORY and SUBJECTIVE: Increased respiratory effort throughout the night. Did not tolerate CPAP due to increased nausea Having to sit upright to maintain sats. OBJECTIVE: I have reviewed the interval history and events. I have revewed the patients medications, l abs, vitals, and other applicable data points. Please refer to [facility] for this information . Lab Results Component Value Date WBC 11.81 03/29/2013 HB 10.5 03/29/2013 HCT 34.7 03/29/2013 PLT 321 03/29/2013 MCV 95.1 03/29/2013 Lab Results Component Value Date NA 139 03/30/2013 K 4.6 03/30/2013 CL 106 03/29/2013 BICARB 30 03/29/2013 BUN 21 03/29/2013 CR 0.53 03/29/2013 GLU 129 03/29/2013 CA 7.7 03/29/2013 PHYSICAL EXAM: LAST VITALS: BP 110/58 | Pulse 101 | Temp 37.2 C (99 F) | RR 18 | Ht 1.6 m (5' 3") | Wt 72 kg (158 lb 11.7 oz) | SpO2 97% | BMI 28.13 kg/(m^2) 24 Hour Vital Min/Max: Systolic (24hrs), Av mmHg, Min:83 mmHg, Max:139 mmHg Diastolic (24hrs), Av mmHg, Min:32 mmHg, Max:84 mmHg GENERAL: mild distress due to increased respiratory effort. NEURO: intact LUNGS: laborious CV: tachycardia ABDOMEN: soft Extremities:Warm and well perfused, +1 edema Patient Active Problem List Diagnosis Intestinal diverticular abscess Septic shock Abdominal abscess Hypervolemia Anemia Electrolyte abnormality ASSESSMENT, MEDICAL DECISION MAKING AND PLAN: Ms. Lambert is a 83F with intramural diverticular abscess s/p IR drain placement 03/12, with con tinued respiratory decompensation - Respiratory decompensation: worsening pulmonary edema/effusion, possible cardiogenic in n ature vs aspiration pneumonia. BMP pending. Support as necessary, did not tolerate CPAP. Las t bmp 7.3/57.8/28.7/3.9. Continue vanc/zosyn. Would benefit from lasix . Consider pleurocent esis - diverticular abscess - final read of CT pending, no obvious abscess or fluid collection. NG in place for decompression. - malnutrition - continue full TPN - agitation/delirium - but redirectable. F: TPN A: tylenol, IV dilaudid S: none T: lovenox H: HOB>30 degrees U: prilosec G: well controlled Lines:central line, gui BUSCH NGT Dispo: continue ICU [place] [phone] [facility] [place] [address] [facility] [place] [address] sac Paredes MD - 03/29/2013 3:18 PM PDT Trauma / Surgical Critical Care Service - Progress Note Name: JUDIE LAMBERT Date: 03/29/2013 Time: 3:18 PM Author: LETTY FRIEND MD HPI: 83 y.o. y/o female admitted on 03/22/2013 4:43 PM with below current issues. Hospital Day #7 ICU Day #3 Procedures: 03/22: IR drain placement Access: R CVC (03/22) ABX: Vanc, zosyn (day 10/23) 24hr events: - hypotension and decreased UOP yesterday evening responsive to 1L fluid bolus overnight. tachycardia decreased with dilaudid Current meds: celexa colace lovenox Insulin metoprolol prilosec zosyn simvastatin vancomycin Labs: EPIC reviewed Significant Results WBC 11.8 (13.4) Imaging: CT abd/pelvis: per my read no obvious abd or pelvic fluid collection, ventral hernia contai zach liver, severe atelectasis of R middle and R lower lobe Vitals: Last 24 hour min/max Temp: 37.4 C (99.3 F) Temp Min: 36.7 C (98.1 F) Max: 37.7 C (99.9 F) Pulse: 111 Pulse Min: 80 Max: 123 Resp: 20 Resp Min: 14 Max: 35 BP: 117/56 mmHg BP Min: 77/40 Max: 139/84 SpO2: 94 % SpO2 Min: 84 % Max: 98 % Body mass index is 28.13 kg/(m^2). Intake/Output Summary (Last 24 hours) at 03/29/13 1518 Last data filed at 03/29/13 1300 Gross per 24 hour Intake 3822 ml Output 668 ml Net 3154 ml Physical exam: Gen: asleep but easily arousable CV: RRR Resp:scattered rales, coarse BS bilat Abd: soft, NT. Drain w/ serous fluid Extr: WWP Assessment: Ms. Lambert is a 83F with intramural diverticular abscess s/p IR drain placement 03/22 with anmol oing reassessment for surgical intervention, transferred to the ICU for acute respiratory de compensation Active problem/Plan: diverticular abscess - f/u final read of CT, no obvious abscess or fluid collection. Passi ng BM. Consider d/c NGT, min output and persistent nausea respiratory decompensation - increasing O2 requirement with oxy mask. cont to monitor and titrate for sats >92%. cont suctioning, aggressive pulmonary hygiene, IS. F/u daily CXRs. Continue vanc/zosyn for aspiration pneumonia for 14 days. F/u final CT findings - evidence of right lower lobe/middle lobe collapse. Would have to intubate to bronch. malnutrition - continue full TPN, re eval swallow when NGT is removed. agitation/delirium - significant sundowning, AxO during day. continue reorientation, sleep hygiene. Minimize centrally acting meds. pain - tylenol, minimal low dose dilaudid PRN. Resolved problems/Plan: n/a F: TPN A: tylenol, IV dilaudid S: none T: lovenox H: HOB>30 degrees U: prilosec G: well controlled Lines:central line, JO-ANN, keys, NGT Dispo: continue ICU care Discussed with Dr. Paredes on SICU rounds. LETTY FRIEND MD General Surgery, R2 Pager [phone] SICU Resident Pager [phone] I was present with the resident during the history and exam. I discussed the case with the resident and agree with the findings and plan as documented in the resident s note. ISAC PAREDES MD [facility] [id number] [address] [phone] Sharmaine Spears MD - 03/29/2013 6:26 AM PDT SURGICAL ICU PROGRESS NOTE: Attending Physician: Gallo Dubon MD 03/29/2013 24 HR EVENTS: - two 500 ml boluses for low UOP, now approx 30cc/hr - NGT with minimal output - States that she feel better today than yesterday ACTIVE PROBLEMS AND PLAN: Judie Lambert is a 83 y.o. female who was admitted for large intramural diverticular abscess w ho is on POD#6 s/p IR drainage 1. Neuro: 1. Acute postop pain. Controlled with prn dilaudid 2. CV: 1. Hypotensive overnight, requiring some fluid boluses. Continue monitoring at this time. 3. Resp: 1. Resp distress and Hypoxia. RML pna and aspiration event yesterday. Curtrently on Vanc/Z osyn. Titrate O2 for sats >92% 4. GI: 1. Diverticulitis. On TPN. NGT in place, minimal output. Consider Abd/pelvis CT today to fu rther assess continued elevated wbc. 5. /Renal: 1. Improved UOP, required bolusing overnight. Continue to monitor closely. 6. FEN: 1. TPN, NPO at this time. 2. Electrolyte derangements. Replete as indicated. 7. Heme/ID: 1. Active infections include: PNA, Diverticulitis, continued leukocytosis . Consider CT abd /pelvis as noted above. Continue Vanc/Zosyn 8. Endo: 1. Glycemic control. CBG's are well controlled. 9. MSK: 1. Postop rehabilitation. PT/OT. When able The above plan is formulated from the data below MEDICATIONS: Current facility-administered medications:acetaminophen (aka OFIRMEV) IV 1,000 mg, 1,000 mg , Intravenous, Q6H PRN, Gavi Matos PA-C, 1,000 mg at 03/27/13 1736 albuterol-ipratropium (aka DUO-NEB) nebulizer solution 3 mL, 3 mL, Inhalation, Q6H PRN, Adele Urbina MD, 3 mL at 03/28/13 2334 citalopram (CELEXA) tablet 20 mg, 20 mg, Oral, DAILY, Letty Friend MD, 20 mg at 03/12 dextrose 50 % injection 12.5 g, 25 mL, Intravenous, PRN, Angel Dove MD docusate sodium (COLACE) capsule 100 mg, 100 mg, Oral, BID, Joi Andre MD, 100 mg at 03/26/132049 enoxaparin (aka LOVENOX) injection 30 mg, 30 mg, Subcutaneous, QPM, Lara Urbina MD, 30 mg at 03/28/13 2100 fat emulsion IV infusion, 250 mL, Intravenous, Q --, Lara Uribna MD, Last Rate: 9.5 mL/hr at 03/28/131951, 250 mL at 03/28/131951 glucagon (GLUCAGEN) injection 1 mg, 1 mg, Intramuscular, PRN, Angel Dove MD glucose chewable tablet 16 g, 16 g, Oral, PRN, Angel Dove MD haloperidol lactate (HALDOL) injection 0.5 mg, 0.5 mg, Intravenous, Q6H PRN, Letty Friend MD heparin 10 unit/mL IV flush syringe 50 Units, 50 Units, Intravenous, PRN, Desirae Vasquez hydrocortisone 1 % cream, , Topical, BID, Katy Donahue PA-C HYDROmorphone (aka DILAUDID) injection 0.2-0.6 mg, 0.2-0.6 mg, Intravenous, Q2H PRN, Gavi Matos PA-C, 0.2 mg at 03/29/13 0445 insulin lispro (HUMALOG) injection, , Subcutaneous, Q6H, Joi Andre MD, 2 Units at 03/29/13 0113 lactated ringers IV, 500 mL, Intravenous, ONCE, Viv Hidalgo PA-C lactobacillus rhamnosus (GG) (CULTURELLE) 15 billion cell capsule 1 Cap, 1 Cap, Feeding Tub e, DAILY, Clemente Andrew MD levothyroxine tablet 125 mcg, 125 mcg, Oral, DAILY, Letty Friend MD menthol-zinc oxide (CALAZIME) topical paste, , Topical, BID PRN, Joi Andre MD omeprazole (PRILOSEC) oral suspension 20 mg, 20 mg, Oral, DAILY, Gallo Dubon MD, 20 mg at 03/28/132106 ondansetron (aka ZOFRAN) injection 4 mg, 4 mg, Intravenous, Q12H PRN, Gavi Matos PA-C, 4 mg at 03/28/132106 piperacillin-tazobactam (ZOSYN) IV 3.375 g, 3.375 g, Intravenous, Q8H, Joi Andre MD, 3.375 g at 03/29/13 010 prochlorperazine (COMPAZINE) injection 2.5-5 mg, 2.5-5 mg, Intravenous, Q4H PRN, Clemente Ocampo NP, 5 mg at 03/29/13 0443 TPN with famotidine IV infusion (ADULT), , Intravenous, TPN-2100, Lara Urbina MD vancomycin (VANCOCIN) IV (ADD-vantage) 1,000 mg, 1,000 mg, Intravenous, Q12H, Gallo Dubon MD VITAL SIGNS: Pulse Av.4 Min: 80 Max: 127 Temp Av.3 C (99.1 F) Min: 36.7 C (98.1 F) Max: 37.7 C (99.9 F) Resp Av.4 Min: 14 Max: 35 SpO2 Av.3 % Min: 84 % Max: 98 % Intake/Output Summary (Last 24 hours) at 03/29/13 0627 Last data filed at 03/29/13 0600 Gross per 24 hour Intake 3617.5 ml Output 723 ml Net 2894.5 ml VENT: Last Ventilator Settings:24 hours (Caution: data from last value documented in flowsheet row, may not be from concurrent time s) Lab Results Component Value Date PH 7.45* 03/28/2013 PCO2 43 03/28/2013 PO2 84 03/28/2013 HCO3 29* 03/28/2013 FIO2 6L 03/28/2013 Lab Results Component Value Date ABGEXCESS 5.2 03/28/2013 PHYSICAL EXAM: General: Alert and oriented, NAD Respiratory: Unlabored, decreased BS on the R lower chest. CV: RRR Abdomen: soft, non-tender, non-distended. Drain in place Extremities: Warm and well perfused, no pitting edema noted Cultures: No new cultures LABS: Reviewed in [facility] Dr. Dubon is the attending of record for this patient encounter. SHARMAINE HUNTER MD Surgery Resident, R2 Diagnoses: [id number] Intestinal diverticular abscess anGregory MD - 10:46 AM PDTICU Attending: I saw and examined Judie Lambert ([id number]) with the residents on 03/28/13 and agree with the a ssessment and plan as outlined in this note and participated in the planning of care. Pt romero d an percutaneous drain placed for diverticular abscess in the LLQ. Transfer back to ICU af ter aspiration event. Persistent leukocytosis (14,000) despite antibiotics and drain placem ent. Plan was for repeat CT scan, but scan held over concern for another aspiration event d uring imaging. Careful monitoring of respiratory status. Gregory Young MD A P Supervisor Trauma, Critical Care, Acute Care Surgery amran, Clemente Mitchell MD - 03/28/2013 10:46 AM PDT Trauma / Surgical Critical Care Service - Progress Note Name: JUDIE LAMBERT Date: 03/28/2013 Time: 10:46 AM Author: CLEMENTE ANDREW MD HPI: 83 y.o. y/o female admitted on 03/22/2013 4:43 PM with below current issues. Hospital Day #6 ICU Day #2 Procedures: 03/22: IR drain placement Access: central line ABX: Vanc, zosyn (Day 10/23) 24hr events: Continued nausea with multiple episodes of emesis. HD stable, afebrile. Current meds: celexa colace lovenox Insulin metoprolol prilosec zosyn simvastatin vancomycin Labs: EPIC reviewed Significant Results WBC 13.8 (14.5) Trop 0.28 (peak 0.82 03/26) Imaging: CXR pending Vitals: Last 24 hour min/max Temp: 37.5 C (99.5 F) Temp Min: 36.7 C (98.1 F) Max: 37.8 C (100 F) Pulse: 113 Pulse Min: 81 Max: 118 Resp: 25 Resp Min: 17 Max: 28 BP: 106/77 mmHg BP Min: 90/56 Max: 135/77 SpO2: 90 % SpO2 Min: 90 % Max: 98 % Body mass index is 27.11 kg/(m^2). Intake/Output Summary (Last 24 hours) at 03/28/13 1046 Last data filed at 03/28/13 1000 Gross per 24 hour Intake 1881 ml Output 923 ml Net 958 ml Physical exam: Gen: elderly woman lying in bed, NAD, AAO CV: RRR Resp:scattered rales Abd: soft, NT. Drain w/ serous fluid Extr: WWP Assessment: 83F w intramural diverticular abscess s/p IR drain placement 03/22 with ongoing reassessment for surgical intervention, transferred to the ICU for acute respiratory decompe nsation. Active problem/Plan: #diverticular abscess - currently with percutaneous drain x6d, persistent nausea and vomiti ng concerning for persistent intraabdominal pathology -surgery managing, to discuss continuing drain vs surgical intervention and ostomy with pt and family -will require CT A/P once clinically stable and no longer at aspiration risk -passing BM -switched from cefepime to vanc/zosyn with resp decompensation, continue antibiotics x14d -place NGT to suction to prevent further aspiration -hold home meds for now, change metoprolol to per NGT, PPI to IV #respiratory decompensation - hypoxia improved but still with significant oxygen requiremen t, satting well on 4L NC -titrate O2 for sats >92% -f/u CXR for signs of PNA -continue vanc/zosyn #malnutrition - unable to take PO 2/2 nausea, will place NGT today to prevent further aspir ation. -NPO -as unable to tolerate PO and at significant aspiration risk, will begin full TPN #agitation/delirium - significant sundowning, AxO during day -continue reorientation -regulate sleep/wake cycle,OOB to chair during day -minimize centrally acting meds #pain - currently well managed w/ tylenol -dilaudid written prn, has not required -minimize centrally acting meds 2/2 delirium F: TPN A: tylenol S: none T: lovenox H: HOB>30 degrees U: prilosec G: well controlled Lines:central line, JO-ANN, keys, NGT Dispo: will require >24h ICU care Discussed with Dr. Young on SICU rounds. CLEMENTE ANDREW MD Dept of Surgery SICU/Trauma homas, Katrin Robert MD - 03/28/2013 3:32 AM PDT [facility] DEPARTMENT OF SURGERY EMERGENCY GENERAL SURGERY Division of Trauma and Critical Care Attending Physician: Gallo Dubon MD Progress Note Note Date: 03/28/2013 Admission Date: 03/22/2013 JUDIE LAMBERT, Hospital Day #6 INTERVAL HISTORY and SUBJECTIVE: - No acute events overnight - Marginal UOP - Redirectable. OBJECTIVE: I have reviewed the interval history and events. I have revewed the patients medications, l abs, vitals, and other applicable data points. Please refer to [facility] for this information . PHYSICAL EXAM: LAST VITALS: BP 126/72 | Pulse 105 | Temp 37 C (98.6 F) | RR 22 | Ht 1.6 m (5' 3") | Wt 71 kg (156 lb 8.4 oz) | SpO2 94% | BMI 27.73 kg/(m^2) 24 Hour Vital Min/Max: Systolic (24hrs), Av mmHg, Min:90 mmHg, Max:135 mmHg Diastolic (24hrs), Av mmHg, Min:43 mmHg, Max:94 mmHg GENERAL: asleep NEURO: grossly intact LUNGS: unlabored CV: tachycardia : keys in place Extremities:Warm and well perfused Patient Active Problem List Diagnosis Intestinal diverticular abscess Septic shock Abdominal abscess Hypervolemia Anemia Electrolyte abnormality ASSESSMENT, MEDICAL DECISION MAKING AND PLAN: Judie Lambert is a 83 y.o. female with a large intramural diverticular abscess who is on POD#5 s/p IR drainage. - post-procedure pain: intermittent dilaudid - hypotension: troponins neg, currently has remained normotensive for past 12 hours. - Respiratory distress: improving, minimal O2 requirements. Currently on 4L NC. - Diverticulitis: possible aspiration event in CT (CT not completed), hold off on advancing diet at this time. Swallow study in am. - Malnutrition: Tolerating TPN, will need to place DHT for enteric feeding. - Electrolyte derangements. Replete as indicated. - Leukocytosis: PNA, diverticular abscess. Currently on Vanc and Zosyn. Cultures pending. KATRIN YEUNG MD General Surgery [address] [facility] [place] [address] [facility] [place] [facility] Sharmaine Spears MD - 0 03/27/2013 2:24 AM PDT SURGICAL ICU PROGRESS NOTE: Attending Physician: Gallo Dubon MD 03/27/2013 ID: Judie Lambert is a 83 y.o. female admitted to the ICU respiratory failure and decompensation. PROCEDURES: 03/22: Diverticular abscess pelvic drain placement by IR 24 HR EVENTS: - Transferred from the floor to the ICU secondary to episode of desaturation and deteriorat ion of vital signs - vital signs improved overnight, less tachypnia. - Bilat LE duplex done to r/o DVT ACTIVE PROBLEMS AND PLAN: Judie Lambert is a 83 y.o. female with a large intramural diverticular abscess who is on POD#4 s/p IR drainage. 1. Neuro: 1. A&O to place and time 2. Acute pain. Well controlled with current pain regimen (Dilaudid prn) 2. CV: 1. SBP in the 110's - 120's. Goal MAP > 65. 2. Tachycardia, improved from initial episode. 3. EKG with ? ST wave depression in V4-V5. Repeat EKG this morning. 4. Continue trending troponins, peaked yesterday at 0.82, now at 0.5 3. Resp: 1. Hypoxia and respiratory failure. Tachypnia improved. Decreased O2 requirements from 15 L to 5L at this time. Titrate O2 for sats >92% 2. CXR w/ RML consolidation concerning for PNA. Abx switched to Vanc and Zosyn at this time . 3. CXR also appears to have some pulmonary vasculature prominence. Lasix 20 mg x1 given 4. GI: 1. Tolerating clear diet well. Multiple BMs. Abdominal exam at this time stable. 2. Worsening leukocytosis. CT chest/abdomen/pelvis pending since inadequate IV access at th is time. Will change to CTA chest and continue with CT abd/pelvis 5. /Renal: 1. Good UOP after Lasix. Goal net -ve 1L in the next 24 hours. 2. Keys placed for better I/O monitoring at this time. 6. FEN: 1. Tolerating clears well. 2. Electrolyte derangements. Replete as indicated. 7. Heme/ID: 1. Active infections include: PNA, diverticular abscess. Currently on Vanc and Zosyn 2. Anemia. Stable. HCT 32. Continue to monitor 8. Endo: 1. Glycemic control. CBG's are improved in the last 24 hours, in the 160's. Continue monit oring 4 times daily. 9. MSK: 1. Bilateral venous duplex LEs negative. 2. Postop rehabilitation. PT/OT. Prophy:SCDs, HOB>30, Prilosec The above plan is formulated from the data below MEDICATIONS: Current facility-administered medications:acetaminophen (aka OFIRMEV) IV 1,000 mg, 1,000 mg , Intravenous, Q6H PRN, Gavi Matos PA-C, 1,000 mg at 03/25/13 0035 albumin human (BUMINATE, FLEXBUMIN) 25 % injection 12.5 g, 12.5 g, Intravenous, ONCE, Sharmaine Hunter MD albuterol-ipratropium (aka DUO-NEB) nebulizer solution 3 mL, 3 mL, Inhalation, Q6H PRN, Adele Urbina MD, 3 mL at 03/26/13 1800 citalopram (aka CELEXA) tablet 10 mg, 10 mg, Oral, DAILY, Lara Urbina MD, 10 mg at 1002 dextrose 50 % injection 12.5 g, 25 mL, Intravenous, PRN, Angel Dove MD docusate sodium (COLACE) capsule 100 mg, 100 mg, Oral, BID, Joi Andre MD, 100 mg at 03/26/132049 enoxaparin (aka LOVENOX) injection 30 mg, 30 mg, Subcutaneous, QPM, Lara Urbina MD, 30 mg at 03/26/132049 fat emulsion IV infusion, 250 mL, Intravenous, Q MO-WE-FR, Lara Urbina MD, 250 mL at 0 03/25/132256 glucagon (GLUCAGEN) injection 1 mg, 1 mg, Intramuscular, PRN, Angel Dove MD glucose chewable tablet 16 g, 16 g, Oral, PRN, Angel Dove MD heparin 10 unit/mL IV flush syringe 50 Units, 50 Units, Intravenous, PRN, Desirae Vasquez-Rubina hydrocortisone 1 % cream, , Topical, BID, Katy Donahue PA-C HYDROmorphone (aka DILAUDID) injection 0.2-0.6 mg, 0.2-0.6 mg, Intravenous, Q2H PRN, Gavi Matos PA-C, 0.5 mg at 03/23/13 1100 insulin lispro (HUMALOG) injection, , Subcutaneous, Q6H, Joi Andre MD, 2 Units at 03/27/13 0005 lactobacillus rhamnosus (GG) (CULTURELLE) 15 billion cell capsule 1 Cap, 1 Cap, Oral, DAILY , Santana Doe MD, 1 Cap at 03/26/13 1535 levothyroxine tablet 125 mcg, 125 mcg, Oral, BEFORE BREAKFAST, Lara Urbina MD, 125 mcg at 03/25/13 0653 menthol-zinc oxide (CALAZIME) topical paste, , Topical, BID PRN, Joi Andre MD metoprolol tartrate (LOPRESSOR) tablet 25 mg, 25 mg, Oral, BID, Clemente S Aries, VIDEO GAMES STORYWRITER, 25 mg at 03/26/132049 omeprazole (PRILOSEC) capsule 20 mg, 20 mg, Oral, DAILY, Santana Doe MD, 20 mg at 03/12 12/22 153 ondansetron (aka ZOFRAN) injection 4 mg, 4 mg, Intravenous, Q12H PRN, Gavi Matos PA-C, 4 mg at 03/26/13 233 piperacillin-tazobactam (ZOSYN) IV 3.375 g, 3.375 g, Intravenous, Q8H, Joi Andre MD, 3.375 g at 03/26/13 2332 potassium & sodium phosphates (NEUTRA-PHOS, PHOS-NAK) 280-160-250 mg packet 1 Packet, 1 Pac ket, Oral, BID, Joi Andre MD, 1 Packet at 03/26/132049 prochlorperazine (COMPAZINE) injection 2.5-5 mg, 2.5-5 mg, Intravenous, Q4H PRN, Clemente Ocampo NP, 5 mg at 03/26/13 1542 promethazine (PHENERGAN) injection 12.5 mg, 12.5 mg, Intravenous, Q8H PRN, Joi madison MD, 12.5 mg at 03/26/13 162 simvastatin (ZOCOR) tablet 20 mg, 20 mg, Oral, QPM, Clemente Ocampo NP, 20 mg at 03/26/132049 TPN with famotidine IV infusion (ADULT), , Intravenous, TPN-2100, Lara Urbina MD vancomycin (VANCOCIN) IV 1,250 mg, 1,250 mg, Intravenous, Q24H, Robert Wheeler MD, 1,250 m g at 03/26/132013 VITAL SIGNS: Pulse Av.3 Min: 96 Max: 120 Temp Av.6 C (97.8 F) Min: 36.3 C (97.3 F) Max: 36.9 C (98.4 F) Resp Av.6 Min: 20 Max: 30 SpO2 Av.4 % Min: 87 % Max: 96 % Intake/Output Summary (Last 24 hours) at 03/27/13 0224 Last data filed at 03/27/13 0130 Gross per 24 hour Intake 2922 ml Output 3230 ml Net -308 ml VENT: Not on vent Lab Results Component Value Date PH 7.46* 03/26/2013 PCO2 40 03/26/2013 PO2 87 03/26/2013 HCO3 28 03/26/2013 Lab Results Component Value Date ABGEXCESS 4.3 03/26/2013 PHYSICAL EXAM: General: Alert and oriented, NAD Respiratory: Decreased WOB as compared to last night. Continues to appear tachypneic in th e low 20's. End expiratory wheezes noted anterior superior chest. CV: RRR, no appreciable murmurs Abdomen: soft, mild tenderness in the periumbilical region, otherwise non-tender, non-diste nded. Drain site c/d/i, no e/o spreading erythema : keys catheter in place Extremities: Warm and well perfused, no calf tenderness Cultures: Awaiting urine cx LABS: Reviewed in Epic Dr. Dubon is the attending of record for this patient encounter. SHARMAINE HUNTER MD Surgery Resident, R2 Diagnoses: [id number] Intestinal diverticular abscess Sharmaine Spears MD - 6:36 PM PDTCalled to patient room by R1. bike technician noted that patient desaturated t o the low 70's when laid flat for abdominal xray. She was promptly placed in the upright pos ition but her O2 Sats did not improve. High flow mask was placed at 15 L with sats improving to the mid 90's. Patient appeared tachypneic to the mid 20-30 and was tachycardic to the 12 0's. PE: Lungs with bilateral end-exp wheezes. Tachycardic but not irregular. No worsening abdom inal distention A breathing treatment was given at the time. Dr. Dubon evaluated patient and recommended tr micah to the ICU for higher level of care and close monitoring. CXR continued with RML consolidation. Abx were changed from Ancef to Zosyn with Vanc added to cover MRSA PNA. After discussion with ICU resident (Dr. Gil) patient was transferred to the ICU in poor but stable condition. Sharmaine Hunter MD R2 Emergency General Surgery allo Dubon MD - 03/26/2013 7:18 AM PDT [facility] DEPARTMENT OF SURGERY EMERGENCY GENERAL SURGERY Division of Trauma and Critical Care Attending Physician: Meredith Steven MD Progress Note Note Date: 03/26/2013 Admission Date: 03/22/2013 JUDIE LAMBERT, Hospital Day #4 INTERVAL HISTORY and SUBJECTIVE: Overnight pt had increased respiratory distress. Pt was given albuterol neb, Lasix, serial Troponins, which are elevated, an unchanged EKG, and CXR with right concerning for consolid ation. REVIEW OF SYSTEMS: Pain Well controlled. Flatus: Yes Tolerating diet: Will start clears Nausea/Vomiting: Only nauseous with neb treatments Bowel movement: Incontinent Progressing with Physical Therapy, PT consulted The remainder of the complete review of system was negative. OBJECTIVE: I have reviewed the interval history and events. I have revewed the patients medications, l abs, vitals, and other applicable data points. Please refer to [facility] for this information . PHYSICAL EXAM: LAST VITALS: BP 114/69 | Pulse 99 | Temp 36.4 C (97.5 F) | RR 20 | Ht 1.6 m (5' 3") | W t 78.9 kg (173 lb 15.1 oz) | SpO2 93% | BMI 30.82 kg/(m^2) 24 Hour Vital Min/Max: Systolic (24hrs), Av mmHg, Min:112 mmHg, Max:141 mmHg Diastoli c (24hrs), Av mmHg, Min:50 mmHg, Max:84 mmHg GENERAL: Asleep, easy to awake, in NAD NEURO: Grossly intact LUNGS: Poor inspiratory effort, appears SOB. Oxygen 4L at 91%, crackles in RLL. CV: RRR ABDOMEN: Obese, non-distended. Soft, tender to RLQ. IR drain in place draining light brow n/yellow fluid. : Keys in place Extremities:Warm and well perfused, non-tender extremities Patient Active Problem List Diagnosis Intestinal diverticular abscess Septic shock Abdominal abscess Hypervolemia Anemia Electrolyte abnormality ASSESSMENT, MEDICAL DECISION MAKING AND PLAN: 83 y.o. y/o female admitted on 03/22/2013 4:4 3 PM and hospital day 4. Active medical problems as listed below: Diverticular Abscess: -NGT removed overnight after resolution of nausea. - Will advance to clears today with supplement -Continue TPN given nausea 03/25 - continue IR drain, will repeat CT scan 03/27 - flush drain 10cc sterile saline BID - Will continue disucssion with pt and family re: need for colostomy and surgical intervent ion - decision date set for Saturday - continue Augmentin 2 weeks. Respiratory Distress - Will give an additional 10mg Lasix IV - Follow serial troponins likely due to ischemic change - Consider repeat CXR 03/26 if respiratory status does not improve. - Continue RT, IS Acute pain: - dilaudid IV prn - Minimize centrally acting meds Hypophosphatemia - NaPhos 30mmol IV - 2.1 (3.0) Hypomagnesium - resolved today - 2.2 (1.6) Hypokalemia - resolved today - 4.1 (3.7) - will continue to follow electrolytes Hypothryoidism - start home levothyroxine Depression - start home citalopram HLD - start home simvastatin Discharge Plan: Tolerating a diet and adequate abscess drainage. ID: Antibiotics: Augmentin Fluids: None Feeding: TPN, will start clears Analgesia: Tylenol, Sedation: not indicated Thromboprophylaxis: Enoxaparin Head of bed: > 30 Ulcer prophylaxis: Not indicated Glycemic control: Adequate Activity/PT/OT: Up ad chacha, PT consulted Yogurt: ABX on Probiotics: Lactobacillus JOI ANDRE MD [facility] A [address] [place] [facility] [place] [id number] STAFF: I personally interviewed the patient, performed the pertinent parts of the physical examina tion and personally formulated the plan with the resident. I agree with the residents docum entation and have documented any additions or exceptions. Diuresis is tamayo. Covering infectio n with single agent. Needs Dobbhoff for nutrition. athen Horne MD - 03/25 8:48 PM PDTOvernight Event Came by to check on pt's nausea and NG tube output. The pt appears to be having respiratory difficulty. She states she feels hot, nauseous and is having difficulty breathing. She paige es chest pain, abdominal pain, lightheadness, dizziness. She states she has recently begun a lbuterol at home when she gets sob. She denies cardiac issues but hx significant for CO and AAA. Neuro: Oriented to person and place, not time. Appears in mild distress, mildly diaphoretic HEENT: pupils equal and reactive, EOM intact. NG tube in place with minimal output on wall suction Resp: Diffuse wheezing heard throughout all lung angulo, abdominal breathing Circulation: Tachy Abdomen, abdominal breathing, limiting exam : good UO and creat Contacted EGS Tyrell Dr Dove and plan formulated Plan 1) Albuterol neb for wheezing - RT paged. Per RT pt not tolerating as it is making more miguelina seous. No change in exam 2) BMP, Mg, Phos, CBC, UA, serial Troponin, EKG, CXR (looking like more infiltrate) 3) Lasix 20mg given - Creat good, good UO, negative fluid balance 4) Continue pulse O2 monitor Update: Pt appears to be breathing better. Wheezing has decreased and is minimal in all hanane drants. Pt states she is breathing much better and the nausea has also subsided. We will con tinue to follow results of tests. UA - some RBCs and LE. Reflex Cx sent Troponin - elevated to 0.69 from 0.11. Will follow serial troponin CBC - WBC slightly elevated to 13.6 from 11.9. Will repeat in the AM CXR - increased opacity in the R middle lobe. Will continue to monitor BMP - electrolytes normalized, will monitor in am EKG - sinus tachycardia, no acute changes noted Nathen Horne MD, EM [id number] signed by Nathen Horne MD at 03/25/2013 10:11 PM PDTK Joi santana MD - 03/25/2013 8:17 AM PDTFormatting of this note might be different f rom the original. [facility] DEPARTMENT OF SURGERY EMERGENCY GENERAL SURGERY Division of Trauma and Critical Care Attending Physician: Meredith Steven MD Progress Note Note Date: 03/25/2013 Admission Date: 03/22/2013 JUDIE LAMBERT, Hospital Day #3 INTERVAL HISTORY and SUBJECTIVE: No acute overnight. Complaining of nausea and that she needs to have a bowel movement. De nies chest pain and shortness of breath. REVIEW OF SYSTEMS: Pain well controlled Flatus: No Tolerating diet: Clears, tolerating Nausea/Vomiting: Nausea Bowel movement: NO; When: Saturday Progressing with Physical Therapy - Up ad chacha, order PT/OT The remainder of the complete review of system was negative. OBJECTIVE: I have reviewed the interval history and events. I have revewed the patients medications, l abs, vitals, and other applicable data points. Please refer to [facility] for this information . PHYSICAL EXAM: LAST VITALS: BP 122/66 | Pulse 94 | Temp 36.7 C (98.1 F) | RR 20 | Ht 1.6 m (5' 3") | W t 78.9 kg (173 lb 15.1 oz) | SpO2 95% | BMI 30.82 kg/(m^2) 24 Hour Vital Min/Max: Systolic (24hrs), Av mmHg, Min:91 mmHg, Max:122 mmHg Diastolic (24hrs), Av mmHg, Min:47 mmHg, Max:66 mmHg GENERAL: Awake in mild distress NEURO: Grossly intact LUNGS: Good respiratory effort, subtle inspiratory wheeze, appears SOB with nasal cannula. CV: RRR ABDOMEN: Pigtail drain in place draining brown fluid. Obese, non-distended, soft, diffusel y tender : Keys in place draining yellow urine Extremities:Warm and well perfused, non-tender. PICC line in place in right clavicle. Patient Active Problem List Diagnosis Intestinal diverticular abscess Septic shock Abdominal abscess Hypervolemia Anemia Electrolyte abnormality ASSESSMENT, MEDICAL DECISION MAKING AND PLAN: 83 y.o. y/o female admitted on 03/22/2013 4:4 3 PM and hospital day 3. Active medical problems as listed below: Diverticular Abscess: - Started on clears, slowly advance - No indication for TPN, maintain until 03/26. - continue IR drain - flush drain 10cc sterile saline BID - Will continue disucssion with pt and family re: need for colostomy and surgical intervent ion - decision date set for Saturday - continue levoflox and flagyl Acute pain: - dilaudid IV prn - Minimize centrally acting meds Hypomagnesium - 1.6 (1.9) - repleted mag 4g IV Hypokalemia - 3.7 (3.6) - repleted KCl 40mEq - will continue to follow electrolytes Hypothryoidism - start home levothyroxine Depression - start home citalopram HLD - start home simvastatin Discharge Plan: Tolerating a diet and adequate abscess drainage. ID: Antibiotics: Levaquin, Flagyl Fluids: None Feeding: Clears, TPN for one more day Analgesia: Acetaminophen, Sedation: not indicated Thromboprophylaxis: Enoxaparin Head of bed: > 30 Ulcer prophylaxis: Famotidine Glycemic control: Adequate Activity/PT/OT: Consulted today Yogurt: ABX on Probiotics: Lactobacillus JOI ANDRE MD [facility] A [address] [place] [address] [place] [facility] Dowling PA-C - 03/24/2013 12:05 PM PDT . BRIEF VASCULAR AND INTERVENTIONAL RADIOLOGY PROGRESS NOTE AUTHOR: CLEVELAND ORTIZ PA-C Issues/Interview IR consult for LLQ abscess drain related to diverticular disease. Ms Judie Lambert is a 83 yo female transferred 03/22 for abscess related to known diverticulosi s. Patient is somewhat confused, but reports feeling "better." AMS earlier per RN report. Data Last 24 hour min/max Temp: 37 C (98.6 F) Temp Min: 36.5 C (97.7 F) Max: 37 C (98.6 F) Pulse: 97 Pulse Min: 75 Max: 123 Resp: 25 Resp Min: 13 Max: 25 BP: 91/58 mmHg BP Min: 90/47 Max: 145/78 SpO2: 93 % SpO2 Min: 92 % Max: 99 % Body mass index is 30.82 kg/(m^2). Examination General: mature, adult, female, comfortable in bed, non toxic, NAD Neurological: oriented to person and place, not year or purpose. CN grossly intact, alert, appropriate HEENT: non icteric Pulmonary: unlabored respirations Abdomen: soft non focal Extremities: warm, dry Access site, LLQ: non tender, clean, dry, intact dressing, no evidence of bleeding or infec tion. LLQ drain: 20mL/24hrs, ~15mL sero-sang fluid to gravity bag now. GPC,GPB,GNB Assessment and Plan Diverticulosis, LLQ abscess, s/p IR drain placement 03/22. Moderate to low output. Leukocytosis improving. Follow up final cultures. Antibiotics per p rimary team. Monitor output, flush BID with 10mL NS (do not aspirate). Recommend re-imaging when output is <20mL /day for 2-3 consecutive days and clinically impr philip prior to removal. Appreciate consult. Please call IR with questions or concerns. CLEVELAND ORTIZ PA-C [id number] Liliana Tirado MD - 03/24/2013 8:46 AM PDT 03/24/2013 5:45 PM STAFF SICU NOTE I saw and evaluated the patient and discussed the diagnosis and management of the patient w andrei Andrew. I performed and confirmed the tamayo portions of the service. See also her note fr om today's visit. I agree with the documentation findings and plan of care. I reviewd the lab and Imaging for the past 24 hours. I reviewed the hemodynamic data sin e yesterday. I reviewed the plans for care with the nurse involved in this patient's care. Patient Active Problem List Diagnosis Intestinal diverticular abscess Septic shock Abdominal abscess Hypervolemia Anemia Electrolyte abnormality Sepsis Improving. Less confused this morning. End expiratory wheezing, good saturations. LILIANA FERNANDEZ MD [id number] Clemente Guillen MD - 03/24/2013 8:46 AM PDT Trauma / Surgical Critical Care Service - Progress Note Name: JUDIE LAMBERT Date: 03/24/2013 Time: 8:28 AM Author: Clemente Andrew MD HPI: 83 y.o. y/o female admitted on 03/22/2013 with an intramural diverticular abscess s/p I R percutaneous drainage on 03/22/13. Initially hypotensive, weaned off pressors morning of , now with stable MAPs. Afebrile throughout hospital course, leukocytosis now downtrendi ng. Hospital Day #2 ICU Day #2 Procedures: None in last 24 hours Access: Central line (Insertion date 03/22/13) -JO-ANN (03/22/13) -NG tube (03/22/13) ABX: Levaquin, Flagyl (Day 3) 24hr events: -allergic reaction to adhesive remover under L breast, responded well to hydrocortisone cre am - delirious and agitated overnight requiring Ativan and Haldol. Improved clarity this am -off O2, saturating well -trop mildly elevated at 0.17, 0.11, EKG NSR Current meds: Current Inpatient Medications Medication Dose Route Frequency acetaminophen (aka OFIRMEV) IV 1,000 mg 1,000 mg Intravenous Q6H PRN famotidine in NS (aka PEPCID) IV 20 mg 20 mg Intravenous Q12H (Scheduled) hydrocortisone 1 % cream Topical BID HYDROmorphone (aka DILAUDID) injection 0.2-0.6 mg 0.2-0.6 mg Intravenous Q2H PRN lactated ringers IV 10 mL/hr Intravenous CONTINUOUS levofloxacin (aka LEVAQUIN) IV 500 mg 500 mg Intravenous Q24H metroNIDAZOLE (aka FLAGYL) IV 500 mg 500 mg Intravenous Q8H ondansetron (aka ZOFRAN) injection 4 mg 4 mg Intravenous Q12H PRN potassium chloride IV 20 mEq 20 mEq Intravenous ONCE potassium phosphate IV 30 mmol 30 mmol Intravenous ONCE Labs: EPIC reviewed WBC down to 14 from 21 yesterday UA negative for infection Gram stain of wound w/ moderate gram negative bacilli, gram positive cocci, gram positive b acilli No other significant results Imaging: No new imaging Vitals: Last 24 hour min/max Temp: 36.6 C (97.9 F) Temp Min: 36.5 C (97.7 F) Max: 36.8 C (98.2 F) Pulse: 85 Pulse Min: 75 Max: 123 Resp: 18 Resp Min: 11 Max: 24 BP: 129/91 mmHg BP Min: 87/74 Max: 145/78 SpO2: 99 % SpO2 Min: 92 % Max: 99 % Body mass index is 30.82 kg/(m^2). Intake/Output Summary (Last 24 hours) at 03/24/13 0828 Last data filed at 03/24/13 0700 Gross per 24 hour Intake 900 ml Output 1847 ml Net -947 ml Physical exam: Gen: Oriented to person, knows hospital but thinks she was transferred. No apparent distre ss. Resp: Mild end-expiratory wheezes Abdomen: Abd soft, appropriately tender. Drain in place w/o purulence or erythema Extremeties: wwp, no edema Assessment: Ms. Lambert is a 83 yoF with a complicated intramural diverticular abscess who is s/p drain pl acement that yielded purulent fluid. She has improved significantly over the past 24 hours, and per EGS recs will have another CT of her abdomen this Saturday (5 days after her first gonsalo ging study) to determine further course of treatment. #Intramural diverticular abscess: s/p IR placement percutaneous drain 03/22 -continue levaquin and flagyl -Leukocytosis downtrending. -continue pain control -monitor JO-ANN output -daily CBC -keep NPO #Agitation/delerium: understands she was disoriented last night -continue to reorient -in chair, lights on during the day. Transfer to floor with brighter room -minimize narcotics and other centrally acting drugs -Haldol PRN agitation - QTc 460s, repeat EKG this afternoon #Volume overload: Net -682cc in last 24 hours, +661 for stay. -allow to auto-diurese, small doses of Lasix if additional volume needs to come off. -goal -500cc to -1L daily #hypophosphatemia: Phos 1.0 03/23, repleted -f/u repeat phos 03/24 PM #Medication management: start home levothyroxine (125 mcg daily), citalopram (10mg daily), simvastatin (20mg daily) Resolved Issues: #Troponinemia: likely 2/2 demand ischemia from hypotension requiring pressures. Trops stabl e at 0.17 and 0.11, EKG normal. No concern for acute cardiac pathology. #Respiratory insufficiency: Resolved, saturating well on room air. Unlikely cardiac cause g iven negative workup. F:NPO A:Tylenol, Dilaudid S:haldol prn T:SCDs, lovenox H:>30decrees U:none G:moderate SSI Lines: Central line (Insertion date 03/22/13) -JO-ANN (03/22/13) -Keys (03/22/13) -peripheral L wrist (03/22/13) Dispo: no further ICU needs, transfer to floor today Pt was seen and discussed with Dr. Fernandez who agrees with the above treatment and plan. CLEMENTE ANDREW MD ngel Dove M D - 03/24/2013 7:09 AM PDT [facility] DEPARTMENT OF SURGERY Daily Progress Note PROGRESS NOTE: Attending Physician: Meredith Steven MD 03/24/2013 Subjective/Overnight Events: - agitated and delirious overnight - given ativan and haldol - off norepi and BP stable - drain output 20cc MEDICATIONS: Reviewed in [facility] VITAL SIGNS: Refer to [facility] Intake/Output Summary (Last 24 hours) at 03/24/13 0709 Last data filed at 03/24/13 0700 Gross per 24 hour Intake 1025 ml Output 1897 ml Net -872 ml PHYSICAL EXAM: General: Alert and oriented, NAD Respiratory: unlabored, CTAB CV: RRR, no m/r/g Abdomen: soft, appropriately tender, nondistended. IR drain with serosang : keys catheter in place, urine clear yellow Extremities: Warm and well perfused, LABS: Chemistries Recent Labs 03/22/13 1700 03/23/13 0249 03/23/13 0256 03/23/13 1740 03/24/13 0129 NA 143 141 -- -- 144 K 3.6 4.4 -- 3.8 3.6 CL 112* 111* -- -- 109* BICARB 21 22 -- -- 27 BUN 10 9 -- -- 7 CR 0.60 0.56* -- -- 0.55* GLU 98 94 104* -- 81 CA 6.8* 6.7* -- -- 7.4* MG 2.2 2.0 -- -- 1.9 PO4 1.6* 3.9 -- -- 1.0* AST 42* -- -- -- -- ALT 15 -- -- -- -- AP 93 -- -- -- -- TBILI 0.3 -- -- -- -- ALB 2.2* | 2.3* -- -- -- -- CBC with diff Recent Labs 03/22/13 1700 03/23/13 0249 03/24/13 0129 WBC 22.25* 21.02* 14.40* HB 10.7* 10.3* 10.3* HCT 33.7* 33.0* 32.1* PLT 282 286 253 ASSESSMENT AND PLAN: Judie Lambert is a 83 y.o. female with a large intramural diverticular abscess who is PPD2 s/p perc IR drainage. She is now off pressors but continues to . 1) Diverticular Abscess: - continue IR drain - flush drain 10cc sterile saline BID - Will continue disucssion with pt and family re: need for colostomy and surgical intervent ion - decision date set for Saturday - continue levoflox and flagyl 2) Septic shock: resolved 3) acute pain: dilaudid IV prn Minimize centrally acting meds 4) hypothryoidism - start home levothyroxine 5) depression - start home citalopram 6) HLD - start home simvastatin GI prophy: famotidine - transition to PO DVT prophy: lovenox Dispo to [facility] today - may need sitter at night Discussed with Dr. Dubon on EGS rounds. Devon Dove MD Surgery, R3 Diagnoses: [id number] Intestinal diverticular abscess This assessment and plan was formulated independently and in conjunction with the Surgical team as well as the attending provider listed above. Liliana Tirado MD - 07/2013 11:01 AM PDT 03/23/2013 4:30 PM STAFF SICU NOTE I saw and evaluated the patient and discussed the diagnosis and management of the patient w ith Dr Kamran. I performed and confirmed the tamayo portions of the service. See also her note fr om today's visit. I agree with the documentation findings and plan of care. I reviewd the lab and Imaging for the past 24 hours. I reviewed the hemodynamic data sinc e yesterday. I reviewed the plans for care with the nurse involved in this patient's care. Patient Active Problem List Diagnosis Intestinal diverticular abscess Septic shock Abdominal abscess Hypervolemia Anemia Electrolyte abnormality Also elevated troponin. Neg. Ecg. Critically ill stilll but improving. Critical Care Time: 30 Minutes (30-74min, >74min) spent on direct patient care, interpre tation of diagnostics and consultation with other providers, exclusive of separately billabl e procedures. LILIANA FERNANDEZ MD [id number] aub, Clemente Mitchell MD - 03/23/2013 11:01 AM PDT Trauma / Surgical Critical Care Service - Progress Note Name: JUDIE LAMBERT Date: 03/23/2013 Time: 9:13 AM Author: Clemente Andrew HPI: 83 y.o. y/o female admitted on 03/22/2013 with an intramural diverticular abscess s/p I R percutaneous drainage on 03/22/13 who has been weaned off NE and has been afebrile in the l ast 24 hours with a downtrending leukocytosis. Her hospital course has been complicated by a gitation and "feeling overwhelmed" by her complicated condition and decisions surrounding price rgery. Hospital Day #1 ICU Day #1 Procedures: 03/22: percutaneous drain placed by IR Access: Central line (Insertion date 03/22/13) -JO-ANN (03/22/13) -NG tube (03/22/13) ABX: Cipro, Flagyl (Day 2) 24hr events: -Drain placed by IR for abscess drainage -disoriented to place overnight -Adequate UOP at 30-40cc/hr -weaned off NE this AM Current meds: Current Inpatient Medications Medication Dose Route Frequency acetaminophen (aka OFIRMEV) IV 1,000 mg 1,000 mg Intravenous Q6H PRN ciprofloxacin (aka CIPRO) IV 400 mg 400 mg Intravenous Q12H famotidine in NS (aka PEPCID) IV 20 mg 20 mg Intravenous Q12H (Scheduled) HYDROmorphone (aka DILAUDID) injection 0.2-0.6 mg 0.2-0.6 mg Intravenous Q2H PRN lactated ringers IV 125 mL/hr Intravenous CONTINUOUS metroNIDAZOLE (aka FLAGYL) IV 500 mg 500 mg Intravenous Q8H norepinephrine in NaCl 0.9% IV infusion 8 mg/250 mL (0.032 mg/mL) 0.02-2 mcg/kg/min ( Order-Specific) Intravenous CONTINUOUS ondansetron (aka ZOFRAN) injection 4 mg 4 mg Intravenous Q12H PRN Pertinent Labs: EPIC reviewed WBC 21 (22) Abscess drainage gram stain and culture pending Imaging: CXR 03/23: IMPRESSION: Trace bilateral pleural effusions with unchanged bibasilar atelectasis. No new consolidation. Vitals: Last 24 hour min/max Temp: 36.7 C (98.1 F) Temp Min: 36.3 C (97.3 F) Max: 37.7 C (99.9 F) Pulse: 80 Pulse Min: 72 Max: 122 Resp: 17 Resp Min: 11 Max: 21 BP: 116/60 mmHg BP Min: 67/55 Max: 136/80 SpO2: 99 % SpO2 Min: 88 % Max: 99 % Body mass index is 30.82 kg/(m^2). Intake/Output Summary (Last 24 hours) at 03/23/13 0913 Last data filed at 03/23/13 0800 Gross per 24 hour Intake 2343.44 ml Output 685 ml Net 1658.44 ml Physical exam: Gen: alert and oriented x2 HEENT: NCAT, EOMI CV: RRR, no m/r/g Abd: soft, appropriately tender, no rebound/guarding Drain: LLQ, serosanguinous and purulent Ext: wwp, moves all spontaneously Assessment: Ms. Lambert is a 83 yoF with a complicated intramural diverticular abscess s/p drain placement w/ purulent fluid drainage. #Intramural diverticular abscess: Drain placed 03/22. Leukocytosis downtrending, afebrile. No signs of peritonitis -continue cipro, flagyl -f/u cultures -continue pain control -monitor JO-ANN output -daily CBC -keep NPO -continue to assess need for surgery vs. roll contour grinder drain placement #Agitation/delerium: understands she was disoriented last night, some confusion but improve d mental status this morning -continue to reorient -in chair, lights on during the day -minimize narcotics and other centrally acting drugs #Respiratory insufficiency: desats to 84 but returns to high 90s when sitting upright and a lert. No hx home inhalers or O2 needs. Former smoker but has not smoked since hip replacemen t ~15 years ago. CXR shows bilat pleural effusions and atelectasis, rec'd 7L IVF at OSH. EKG NSR. -trial duoneb -check trops given hx CO -20mg IV Lasix now for diuresis #Hypotension: off pressors, vss. Maintains MAPs when awake and alert. -continue to monitor MAPs -EKG wnl -f/u troponin #Volume overload: CXR shows bilat pleural effusions, likely 2/2 volume resuscitation at OSH . -Lasix 20mg IV now -stop MIVF #Nausea: continuing dry heaves -continue Zofran PRN -cardiac work up Resolved Issues: #septic shock - off pressors, afebrile, continuing vanc and zosyn, good UOP F:NPO A:Tylenol, Dilaudid S:none T:SCDs H:>30decrees U:pepcid G:moderate SSI Lines: Central line (Insertion date 03/22/13) -JO-ANN (03/22/13) -NG tube (03/22/13) -Keys (03/22/13) -peripheral L wrist (03/22/13) Dispo: ongoing ICU needs Pt seen and discussed with Dr. Fernandez who agrees with above assessment and plan. CLEMENTE ANDREW MD Angel Gutiérrez M D - 03/23/2013 3:48 AM PDT Surgical Critical Care Service - Progress Note Name: JUDIE LAMBERT Date: 03/23/2013 Time: 3:48 AM Author: ANGEL DOVE MD HPI: 83 y.o. y/o female admitted on 03/22/2013 4:43 PM with below current issues. Hospital Day #1 Procedures: 03/23: perc IR drain of pelvic abscess ABX: cipro/flagyl 24hr events: -100cc purulent fluid returned on drain placement - pain controlled - still on nor-epi but weaning this AM since pt more awake - mild sun-downing - no fevers since drainage Labs: EPIC reviewed Vitals: Last 24 hour min/max Temp: 36.3 C (97.3 F) Temp Min: 36.3 C (97.3 F) Max: 37.7 C (99.9 F) Pulse: 80 Pulse Min: 72 Max: 122 Resp: 17 Resp Min: 11 Max: 21 BP: 121/69 mmHg BP Min: 67/55 Max: 136/80 SpO2: 98 % SpO2 Min: 88 % Max: 98 % Body mass index is 28.91 kg/(m^2). Intake/Output Summary (Last 24 hours) at 03/23/13 0348 Last data filed at 03/23/13 0200 Gross per 24 hour Intake 1690.15 ml Output 420 ml Net 1270.15 ml Physical exam: GEN: NAD, pleasant, AOx3 CV: RRR, RESP: decreased throughout, NC, end expiratory wheeze ABD: soft, appropriately tender, LLQ drain serosanguinous and purulent EXT: SCDs, WWP Assessment: Judie Lambert is a 83 y.o. female with a large intramural diverticular abscess who is PPD1 s/p perc IR drainage. She continues to require vasopressor support. 1) Diverticular Abscess: - continue IR drain - flush drain 10cc sterile saline BID - Will continue disucssion with pt and family re: need for colostomy and surgical intervent ion - continue cipro/flagyl - f/u drain cultures 2) Septic shock: resolving - Abx - Wean norepi - goal MAPS>65 and follow UOP - minimize fluid given h/o COPD and resuscitation already received 3) acute pain: dilaudid IV prn 4) hypothryoidism - restart home levothyroxine 5) depression - restart home citalopram 6) HLD - restart home simvastatin GI prophy: famotidine DVT prophy: start lovenox Continue ICU level of care Discussed with Dr. Dubon on EGS rounds. Devon Dove MD Surgery R3 Maria C Mathew DO - 0 03/22/2013 9:10 PM PDTBRJOSÉ ANTONIO INTERVENTIONAL RADIOLOGY PROCEDURE NOTE DATE: 03/22/2013 9:11 PM PROCEDURE: Pelvic drain placement PRE-PROCEDURE DIAGNOSIS: Diverticular abscess POST-PROCEDURE DIAGNOSIS: Same IR STAFF: Nilesh IR FELLOW: Pamela ACCESS: left lower quadrant MEDICATIONS: Zofran 4mg IV 1% lidocaine 10 cc COMPLICATION(S): None immediate FINDINGS: 1. Successful 10 Fr All-purpose pelvic drain placement. 2. Approximately 100c thick purulent fluid drained. Sample sent for culture and gram stai n. Full report forthcoming. Khai Gonzáles MD - 03/22/2013 6:51 PM PDTBriefly Mrs. Lambert is a 83 yo F with perforated sigmoid diverticuli tis, with a large intramural abscess, as well as a small pelvic abscess. The patients past history includes R hip replacement in 2007 with postoperative CO which was treated medically . At baseline the patient is very active, though she lives with her daughter, but is able t o participate with her activities of daily living. I spoke at length with the patient about her perforated diverticulitis. She understands th at she has an infection in her abdomen involving her colon which has caused systemic infecti on/illness. We discussed possible surgical options, and that a surgery at this time would r equire colostomy. The patient feels strongly at this time she would not want a colostomy, b ut after this was reluctant to discuss this in detail. I had a similar conversation with he r bhargavi Graff (with whom the patient lives) who also understands the disease process and treatment options. She also supports the fact that her mother would not want a colostomy, but states that she believes should the patient have to choose between a colostomy or suffer ing from untreatable infection, the patient would choose the surgery. When asked about code status the patient was unwilling to discuss. Prerna states that the patient has signed pre vious papers (she will try to locate) in that should would like to be full code, but would n ot like to be on life support for an extended period of time if her condition was not revers ible. After discussion with the patient and family, the patient will proceed with IR guided percu taneous drain placement. We will continue to resuscitate the patient and continue antibioti cs. If the patient is able to resolve her sepsis, she can be treated with the drain, and pl anned for delayed resection in several weeks after the inflammation has resolved. If she co ntinues to be septic, or with worsening abdominal pain, then we would again recommend surger y with sigmoid colostomy. This was discussed with Dr. Steven, [facility] staff. KHAI DASH MD documented in this e ncounter Plan of Treatment Not on filedocumented as of this encounter Procedures + +--------+ + + + | Procedure Name | Priori | Date/Time | Associated Diagnosis | Comments | | | ty | | | | + +--------+ + + + | CAPILLARY BLOOD | Routin | 04/11/2013 | | Results for this | | GLUCOSE (NO CHG), | e | 6:10 AM | | procedure are in the | | POC | | PDT | | results section. | + +--------+ + + + | CAPILLARY BLOOD | Routin | 04/11/2013 | | Results for this | | GLUCOSE (NO CHG), | e | 12:10 AM | | procedure are in the | | POC | | PDT | | results section. | + +--------+ + + + | CAPILLARY BLOOD | Routin | 04/10/2013 | | Results for this | | GLUCOSE (NO CHG), | e | 6:26 PM | | procedure are in the | | POC | | PDT | | results section. | + +--------+ + + + | CAPILLARY BLOOD | Routin | 04/10/2013 | | Results for this | | GLUCOSE (NO CHG), | e | 12:50 PM | | procedure are in the | | POC | | PDT | | results section. | + +--------+ + + + | CAPILLARY BLOOD | Routin | 04/10/2013 | | Results for this | | GLUCOSE (NO CHG), | e | 6:29 AM | | procedure are in the | | POC | | PDT | | results section. | + +--------+ + + + | COMPLETE METABOLIC | Urgent | 04/10/2013 | | Results for this | | SET | | 3:40 AM | | procedure are in the | | (NA,K,CL,CO2,BUN,CRE | | PDT | | results section. | | AT,GLUC,CA,AST,ALT,B | | | | | | MEHNAZ TOTAL,ALK | | | | | | PHOS,ALB,PROT TOTAL) | | | | | + +--------+ + + + | PHOSPHORUS, PLASMA | Routin | 04/10/2013 | | Results for this | | | e | 3:40 AM | | procedure are in the | | | | PDT | | results section. | + +--------+ + + + | LIPASE, PLASMA | Urgent | 04/10/2013 | | Results for this | | | | 3:40 AM | | procedure are in the | | | | PDT | | results section. | + +--------+ + + + | MAGNESIUM, PLASMA | Urgent | 04/10/2013 | | Results for this | | | | 3:40 AM | | procedure are in the | | | | PDT | | results section. | + +--------+ + + + | CAPILLARY BLOOD | Routin | 04/09/2013 | | Results for this | | GLUCOSE (NO CHG), | e | 11:55 PM | | procedure are in the | | POC | | PDT | | results section. | + +--------+ + + + | CAPILLARY BLOOD | Routin | 04/09/2013 | | Results for this | | GLUCOSE (NO CHG), | e | 6:42 PM | | procedure are in the | | POC | | PDT | | results section. | + +--------+ + + + | CAPILLARY BLOOD | Routin | 04/09/2013 | | Results for this | | GLUCOSE (NO CHG), | e | 11:56 AM | | procedure are in the | | POC | | PDT | | results section. | + +--------+ + + + | CAPILLARY BLOOD | Routin | 04/09/2013 | | Results for this | | GLUCOSE (NO CHG), | e | 6:12 AM | | procedure are in the | | POC | | PDT | | results section. | + +--------+ + + + | CBC (HEMOGRAM) ONLY | Urgent | 04/09/2013 | | Results for this | | | | 4:01 AM | | procedure are in the | | | | PDT | | results section. | + +--------+ + + + | COMPLETE METABOLIC | Urgent | 04/09/2013 | | Results for this | | SET | | 4:01 AM | | procedure are in the | | (NA,K,CL,CO2,BUN,CRE | | PDT | | results section. | | AT,GLUC,CA,AST,ALT,B | | | | | | MEHNAZ TOTAL,ALK | | | | | | PHOS,ALB,PROT TOTAL) | | | | | + +--------+ + + + | CBC ONLY | Urgent | 04/09/2013 | | Results for this | | | | 4:01 AM | | procedure are in the | | | | PDT | | results section. | + +--------+ + + + | PHOSPHORUS, PLASMA | Routin | 04/09/2013 | | Results for this | | | e | 4:01 AM | | procedure are in the | | | | PDT | | results section. | + +--------+ + + + | LIPASE, PLASMA | Urgent | 04/09/2013 | | Results for this | | | | 4:01 AM | | procedure are in the | | | | PDT | | results section. | + +--------+ + + + | MAGNESIUM, PLASMA | Urgent | 04/09/2013 | | Results for this | | | | 4:01 AM | | procedure are in the | | | | PDT | | results section. | + +--------+ + + + | CAPILLARY BLOOD | Routin | 04/08/2013 | | Results for this | | GLUCOSE (NO CHG), | e | 11:39 PM | | procedure are in the | | POC | | PDT | | results section. | + +--------+ + + + | CAPILLARY BLOOD | Routin | 04/08/2013 | | Results for this | | GLUCOSE (NO CHG), | e | 6:11 PM | | procedure are in the | | POC | | PDT | | results section. | + +--------+ + + + | CAPILLARY BLOOD | Routin | 04/08/2013 | | Results for this | | GLUCOSE (NO CHG), | e | 12:28 PM | | procedure are in the | | POC | | PDT | | results section. | + +--------+ + + + | X-RAY ABD LTD | Routin | 04/08/2013 | | Results for this | | FEEDING TUBE EVAL | e | 11:41 AM | | procedure are in the | | PORTABLE | | PDT | | results section. | + +--------+ + + + | X-RAY ABD LTD | Routin | 04/08/2013 | | Results for this | | FEEDING TUBE EVAL | e | 10:07 AM | | procedure are in the | | | | PDT | | results section. | + +--------+ + + + | CAPILLARY BLOOD | Routin | 04/08/2013 | | Results for this | | GLUCOSE (NO CHG), | e | 6:10 AM | | procedure are in the | | POC | | PDT | | results section. | + +--------+ + + + | CBC (HEMOGRAM) ONLY | Urgent | 04/08/2013 | | Results for this | | | | 5:20 AM | | procedure are in the | | | | PDT | | results section. | + +--------+ + + + | COMPLETE METABOLIC | Urgent | 04/08/2013 | | Results for this | | SET | | 5:20 AM | | procedure are in the | | (NA,K,CL,CO2,BUN,CRE | | PDT | | results section. | | AT,GLUC,CA,AST,ALT,B | | | | | | MEHNAZ TOTAL,ALK | | | | | | PHOS,ALB,PROT TOTAL) | | | | | + +--------+ + + + | CBC ONLY | Urgent | 04/08/2013 | | Results for this | | | | 5:20 AM | | procedure are in the | | | | PDT | | results section. | + +--------+ + + + | PHOSPHORUS, PLASMA | Routin | 04/08/2013 | | Results for this | | | e | 5:20 AM | | procedure are in the | | | | PDT | | results section. | + +--------+ + + + | LIPASE, PLASMA | Urgent | 04/08/2013 | | Results for this | | | | 5:20 AM | | procedure are in the | | | | PDT | | results section. | + +--------+ + + + | MAGNESIUM, PLASMA | Urgent | 04/08/2013 | | Results for this | | | | 5:20 AM | | procedure are in the | | | | PDT | | results section. | + +--------+ + + + | CAPILLARY BLOOD | Routin | 04/08/2013 | | Results for this | | GLUCOSE (NO CHG), | e | 12:27 AM | | procedure are in the | | POC | | PDT | | results section. | + +--------+ + + + | CAPILLARY BLOOD | Routin | 04/07/2013 | | Results for this | | GLUCOSE (NO CHG), | e | 9:49 PM | | procedure are in the | | POC | | PDT | | results section. | + +--------+ + + + | CAPILLARY BLOOD | Routin | 04/07/2013 | | Results for this | | GLUCOSE (NO CHG), | e | 8:18 PM | | procedure are in the | | POC | | PDT | | results section. | + +--------+ + + + | CAPILLARY BLOOD | Routin | 04/07/2013 | | Results for this | | GLUCOSE (NO CHG), | e | 11:33 AM | | procedure are in the | | POC | | PDT | | results section. | + +--------+ + + + | CAPILLARY BLOOD | Routin | 04/07/2013 | | Results for this | | GLUCOSE (NO CHG), | e | 5:58 AM | | procedure are in the | | POC | | PDT | | results section. | + +--------+ + + + | CBC (HEMOGRAM) ONLY | Urgent | 04/07/2013 | | Results for this | | | | 3:27 AM | | procedure are in the | | | | PDT | | results section. | + +--------+ + + + | COMPLETE METABOLIC | Urgent | 04/07/2013 | | Results for this | | SET | | 3:27 AM | | procedure are in the | | (NA,K,CL,CO2,BUN,CRE | | PDT | | results section. | | AT,GLUC,CA,AST,ALT,B | | | | | | MEHNAZ TOTAL,ALK | | | | | | PHOS,ALB,PROT TOTAL) | | | | | + +--------+ + + + | CBC ONLY | Urgent | 04/07/2013 | | Results for this | | | | 3:27 AM | | procedure are in the | | | | PDT | | results section. | + +--------+ + + + | PHOSPHORUS, PLASMA | Routin | 04/07/2013 | | Results for this | | | e | 3:27 AM | | procedure are in the | | | | PDT | | results section. | + +--------+ + + + | LIPASE, PLASMA | Urgent | 04/07/2013 | | Results for this | | | | 3:27 AM | | procedure are in the | | | | PDT | | results section. | + +--------+ + + + | MAGNESIUM, PLASMA | Urgent | 04/07/2013 | | Results for this | | | | 3:27 AM | | procedure are in the | | | | PDT | | results section. | + +--------+ + + + | CAPILLARY BLOOD | Routin | 04/07/2013 | | Results for this | | GLUCOSE (NO CHG), | e | 12:04 AM | | procedure are in the | | POC | | PDT | | results section. | + +--------+ + + + | CAPILLARY BLOOD | Routin | 04/06/2013 | | Results for this | | GLUCOSE (NO CHG), | e | 6:37 PM | | procedure are in the | | POC | | PDT | | results section. | + +--------+ + + + | CAPILLARY BLOOD | Routin | 04/06/2013 | | Results for this | | GLUCOSE (NO CHG), | e | 12:30 PM | | procedure are in the | | POC | | PDT | | results section. | + +--------+ + + + | X-RAY CHEST 1 VIEW | Routin | 04/06/2013 | | Results for this | | | e | 9:56 AM | | procedure are in the | | | | PDT | | results section. | + +--------+ + + + | CAPILLARY BLOOD | Routin | 04/06/2013 | | Results for this | | GLUCOSE (NO CHG), | e | 6:14 AM | | procedure are in the | | POC | | PDT | | results section. | + +--------+ + + + | CBC (HEMOGRAM) ONLY | Urgent | 04/06/2013 | | Results for this | | | | 4:36 AM | | procedure are in the | | | | PDT | | results section. | + +--------+ + + + | COMPLETE METABOLIC | Urgent | 04/06/2013 | | Results for this | | SET | | 4:36 AM | | procedure are in the | | (NA,K,CL,CO2,BUN,CRE | | PDT | | results section. | | AT,GLUC,CA,AST,ALT,B | | | | | | MEHNAZ TOTAL,ALK | | | | | | PHOS,ALB,PROT TOTAL) | | | | | + +--------+ + + + | CBC ONLY | Urgent | 04/06/2013 | | Results for this | | | | 4:36 AM | | procedure are in the | | | | PDT | | results section. | + +--------+ + + + | PHOSPHORUS, PLASMA | Routin | 04/06/2013 | | Results for this | | | e | 4:36 AM | | procedure are in the | | | | PDT | | results section. | + +--------+ + + + | LIPASE, PLASMA | Urgent | 04/06/2013 | | Results for this | | | | 4:36 AM | | procedure are in the | | | | PDT | | results section. | + +--------+ + + + | MAGNESIUM, PLASMA | Urgent | 04/06/2013 | | Results for this | | | | 4:36 AM | | procedure are in the | | | | PDT | | results section. | + +--------+ + + + | CAPILLARY BLOOD | Routin | 04/06/2013 | | Results for this | | GLUCOSE (NO CHG), | e | 12:04 AM | | procedure are in the | | POC | | PDT | | results section. | + +--------+ + + + | CAPILLARY BLOOD | Routin | 04/05/2013 | | Results for this | | GLUCOSE (NO CHG), | e | 5:54 PM | | procedure are in the | | POC | | PDT | | results section. | + +--------+ + + + | CAPILLARY BLOOD | Routin | 04/05/2013 | | Results for this | | GLUCOSE (NO CHG), | e | 11:53 AM | | procedure are in the | | POC | | PDT | | results section. | + +--------+ + + + | CAPILLARY BLOOD | Routin | 04/05/2013 | | Results for this | | GLUCOSE (NO CHG), | e | 6:26 AM | | procedure are in the | | POC | | PDT | | results section. | + +--------+ + + + | CBC (HEMOGRAM) ONLY | Urgent | 04/05/2013 | | Results for this | | | | 3:36 AM | | procedure are in the | | | | PDT | | results section. | + +--------+ + + + | COMPLETE METABOLIC | Urgent | 04/05/2013 | | Results for this | | SET | | 3:36 AM | | procedure are in the | | (NA,K,CL,CO2,BUN,CRE | | PDT | | results section. | | AT,GLUC,CA,AST,ALT,B | | | | | | MEHNAZ TOTAL,ALK | | | | | | PHOS,ALB,PROT TOTAL) | | | | | + +--------+ + + + | BASIC METABOLIC SET | Urgent | 04/05/2013 | | Results for this | | (NA, K, CL, TCO2, | | 3:36 AM | | procedure are in the | | BUN, CR, GLU, CA) | | PDT | | results section. | + +--------+ + + + | CBC ONLY | Urgent | 04/05/2013 | | Results for this | | | | 3:36 AM | | procedure are in the | | | | PDT | | results section. | + +--------+ + + + | PHOSPHORUS, PLASMA | Routin | 04/05/2013 | | Results for this | | | e | 3:36 AM | | procedure are in the | | | | PDT | | results section. | + +--------+ + + + | LIPASE, PLASMA | Urgent | 04/05/2013 | | Results for this | | | | 3:36 AM | | procedure are in the | | | | PDT | | results section. | + +--------+ + + + | MAGNESIUM, PLASMA | Urgent | 04/05/2013 | | Results for this | | | | 3:36 AM | | procedure are in the | | | | PDT | | results section. | + +--------+ + + + | CAPILLARY BLOOD | Routin | 04/04/2013 | | Results for this | | GLUCOSE (NO CHG), | e | 11:56 PM | | procedure are in the | | POC | | PDT | | results section. | + +--------+ + + + | MRI CHOLANGIOGRAPHY | Urgent | 04/04/2013 | | Results for this | | WWO CONTRAST (+ | | 8:43 PM | | procedure are in the | | LIVER MASS) | | PDT | | results section. | + +--------+ + + + | CAPILLARY BLOOD | Routin | 04/04/2013 | | Results for this | | GLUCOSE (NO CHG), | e | 5:55 PM | | procedure are in the | | POC | | PDT | | results section. | + +--------+ + + + | CAPILLARY BLOOD | Routin | 04/04/2013 | | Results for this | | GLUCOSE (NO CHG), | e | 12:29 PM | | procedure are in the | | POC | | PDT | | results section. | + +--------+ + + + | CAPILLARY BLOOD | Routin | 04/04/2013 | | Results for this | | GLUCOSE (NO CHG), | e | 6:05 AM | | procedure are in the | | POC | | PDT | | results section. | + +--------+ + + + | CBC (HEMOGRAM) ONLY | Urgent | 04/04/2013 | | Results for this | | | | 3:48 AM | | procedure are in the | | | | PDT | | results section. | + +--------+ + + + | COMPLETE METABOLIC | Urgent | 04/04/2013 | | Results for this | | SET | | 3:48 AM | | procedure are in the | | (NA,K,CL,CO2,BUN,CRE | | PDT | | results section. | | AT,GLUC,CA,AST,ALT,B | | | | | | MEHNAZ TOTAL,ALK | | | | | | PHOS,ALB,PROT TOTAL) | | | | | + +--------+ + + + | BASIC METABOLIC SET | Urgent | 04/04/2013 | | Results for this | | (NA, K, CL, TCO2, | | 3:48 AM | | procedure are in the | | BUN, CR, GLU, CA) | | PDT | | results section. | + +--------+ + + + | CBC ONLY | Urgent | 04/04/2013 | | Results for this | | | | 3:48 AM | | procedure are in the | | | | PDT | | results section. | + +--------+ + + + | PHOSPHORUS, PLASMA | Routin | 04/04/2013 | | Results for this | | | e | 3:48 AM | | procedure are in the | | | | PDT | | results section. | + +--------+ + + + | LIPASE, PLASMA | Urgent | 04/04/2013 | | Results for this | | | | 3:48 AM | | procedure are in the | | | | PDT | | results section. | + +--------+ + + + | MAGNESIUM, PLASMA | Urgent | 04/04/2013 | | Results for this | | | | 3:48 AM | | procedure are in the | | | | PDT | | results section. | + +--------+ + + + | CAPILLARY BLOOD | Routin | 04/03/2013 | | Results for this | | GLUCOSE (NO CHG), | e | 11:45 PM | | procedure are in the | | POC | | PDT | | results section. | + +--------+ + + + | CAPILLARY BLOOD | Routin | 04/03/2013 | | Results for this | | GLUCOSE (NO CHG), | e | 7:05 PM | | procedure are in the | | POC | | PDT | | results section. | + +--------+ + + + | X-RAY ABD LTD | Routin | 04/03/2013 | | Results for this | | FEEDING TUBE EVAL | e | 6:18 PM | | procedure are in the | | | | PDT | | results section. | + +--------+ + + + | US ABDOMEN LIMITED | Routin | 04/03/2013 | | Results for this | | | e | 4:59 PM | | procedure are in the | | | | PDT | | results section. | + +--------+ + + + | CAPILLARY BLOOD | Routin | 04/03/2013 | | Results for this | | GLUCOSE (NO CHG), | e | 12:02 PM | | procedure are in the | | POC | | PDT | | results section. | + +--------+ + + + | X-RAY ABD LTD | Routin | 04/03/2013 | | Results for this | | FEEDING TUBE EVAL | e | 9:21 AM | | procedure are in the | | | | PDT | | results section. | + +--------+ + + + | CAPILLARY BLOOD | Routin | 04/03/2013 | | Results for this | | GLUCOSE (NO CHG), | e | 6:20 AM | | procedure are in the | | POC | | PDT | | results section. | + +--------+ + + + | CBC (HEMOGRAM) ONLY | Urgent | 04/03/2013 | | Results for this | | | | 3:50 AM | | procedure are in the | | | | PDT | | results section. | + +--------+ + + + | COMPLETE METABOLIC | Urgent | 04/03/2013 | | Results for this | | SET | | 3:50 AM | | procedure are in the | | (NA,K,CL,CO2,BUN,CRE | | PDT | | results section. | | AT,GLUC,CA,AST,ALT,B | | | | | | MEHNAZ TOTAL,ALK | | | | | | PHOS,ALB,PROT TOTAL) | | | | | + +--------+ + + + | BASIC METABOLIC SET | Urgent | 04/03/2013 | | Results for this | | (NA, K, CL, TCO2, | | 3:50 AM | | procedure are in the | | BUN, CR, GLU, CA) | | PDT | | results section. | + +--------+ + + + | CBC ONLY | Urgent | 04/03/2013 | | Results for this | | | | 3:50 AM | | procedure are in the | | | | PDT | | results section. | + +--------+ + + + | PHOSPHORUS, PLASMA | Routin | 04/03/2013 | | Results for this | | | e | 3:50 AM | | procedure are in the | | | | PDT | | results section. | + +--------+ + + + | LIPASE, PLASMA | Urgent | 04/03/2013 | | Results for this | | | | 3:50 AM | | procedure are in the | | | | PDT | | results section. | + +--------+ + + + | MAGNESIUM, PLASMA | Urgent | 04/03/2013 | | Results for this | | | | 3:50 AM | | procedure are in the | | | | PDT | | results section. | + +--------+ + + + | CAPILLARY BLOOD | Routin | 04/02/2013 | | Results for this | | GLUCOSE (NO CHG), | e | 11:35 PM | | procedure are in the | | POC | | PDT | | results section. | + +--------+ + + + | CAPILLARY BLOOD | Routin | 04/02/2013 | | Results for this | | GLUCOSE (NO CHG), | e | 6:13 PM | | procedure are in the | | POC | | PDT | | results section. | + +--------+ + + + | X-RAY ABD LTD | Routin | 04/02/2013 | | Results for this | | FEEDING TUBE EVAL | e | 3:32 PM | | procedure are in the | | | | PDT | | results section. | + +--------+ + + + | CAPILLARY BLOOD | Routin | 04/02/2013 | | Results for this | | GLUCOSE (NO CHG), | e | 1:10 PM | | procedure are in the | | POC | | PDT | | results section. | + +--------+ + + + | CAPILLARY BLOOD | Routin | 04/02/2013 | | Results for this | | GLUCOSE (NO CHG), | e | 6:23 AM | | procedure are in the | | POC | | PDT | | results section. | + +--------+ + + + | CBC (HEMOGRAM) ONLY | Urgent | 04/02/2013 | | Results for this | | | | 2:04 AM | | procedure are in the | | | | PDT | | results section. | + +--------+ + + + | COMPLETE METABOLIC | Urgent | 04/02/2013 | | Results for this | | SET | | 2:04 AM | | procedure are in the | | (NA,K,CL,CO2,BUN,CRE | | PDT | | results section. | | AT,GLUC,CA,AST,ALT,B | | | | | | MEHNAZ TOTAL,ALK | | | | | | PHOS,ALB,PROT TOTAL) | | | | | + +--------+ + + + | BASIC METABOLIC SET | Urgent | 04/02/2013 | | Results for this | | (NA, K, CL, TCO2, | | 2:04 AM | | procedure are in the | | BUN, CR, GLU, CA) | | PDT | | results section. | + +--------+ + + + | CBC ONLY | Urgent | 04/02/2013 | | Results for this | | | | 2:04 AM | | procedure are in the | | | | PDT | | results section. | + +--------+ + + + | PHOSPHORUS, PLASMA | Routin | 04/02/2013 | | Results for this | | | e | 2:04 AM | | procedure are in the | | | | PDT | | results section. | + +--------+ + + + | LIPASE, PLASMA | Urgent | 04/02/2013 | | Results for this | | | | 2:04 AM | | procedure are in the | | | | PDT | | results section. | + +--------+ + + + | MAGNESIUM, PLASMA | Urgent | 04/02/2013 | | Results for this | | | | 2:04 AM | | procedure are in the | | | | PDT | | results section. | + +--------+ + + + | CAPILLARY BLOOD | Routin | 04/01/2013 | | Results for this | | GLUCOSE (NO CHG), | e | 6:52 PM | | procedure are in the | | POC | | PDT | | results section. | + +--------+ + + + | CAPILLARY BLOOD | Routin | 04/01/2013 | | Results for this | | GLUCOSE (NO CHG), | e | 12:47 PM | | procedure are in the | | POC | | PDT | | results section. | + +--------+ + + + | CAPILLARY BLOOD | Routin | 04/01/2013 | | Results for this | | GLUCOSE (NO CHG), | e | 6:50 AM | | procedure are in the | | POC | | PDT | | results section. | + +--------+ + + + | COMPLETE METABOLIC | Urgent | 04/01/2013 | | Results for this | | SET | | 5:28 AM | | procedure are in the | | (NA,K,CL,CO2,BUN,CRE | | PDT | | results section. | | AT,GLUC,CA,AST,ALT,B | | | | | | MEHNAZ TOTAL,ALK | | | | | | PHOS,ALB,PROT TOTAL) | | | | | + +--------+ + + + | CBC (HEMOGRAM) ONLY | Urgent | 04/01/2013 | | Results for this | | | | 2:13 AM | | procedure are in the | | | | PDT | | results section. | + +--------+ + + + | BASIC METABOLIC SET | Urgent | 04/01/2013 | | Results for this | | (NA, K, CL, TCO2, | | 2:13 AM | | procedure are in the | | BUN, CR, GLU, CA) | | PDT | | results section. | + +--------+ + + + | CBC ONLY | Urgent | 04/01/2013 | | Results for this | | | | 2:13 AM | | procedure are in the | | | | PDT | | results section. | + +--------+ + + + | PHOSPHORUS, PLASMA | Routin | 04/01/2013 | | Results for this | | | e | 2:13 AM | | procedure are in the | | | | PDT | | results section. | + +--------+ + + + | LIPID SET (TRIG, T | Urgent | 04/01/2013 | | Results for this | | CHOL, HDL, CALC LDL) | | 2:13 AM | | procedure are in the | | | | PDT | | results section. | + +--------+ + + + | LIPASE, PLASMA | Urgent | 04/01/2013 | | Results for this | | | | 2:13 AM | | procedure are in the | | | | PDT | | results section. | + +--------+ + + + | MAGNESIUM, PLASMA | Urgent | 04/01/2013 | | Results for this | | | | 2:13 AM | | procedure are in the | | | | PDT | | results section. | + +--------+ + + + | CBC (HEMOGRAM) ONLY | Urgent | 04/01/2013 | | Results for this | | | | 12:36 AM | | procedure are in the | | | | PDT | | results section. | + +--------+ + + + | CBC ONLY | Urgent | 04/01/2013 | | Results for this | | | | 12:36 AM | | procedure are in the | | | | PDT | | results section. | + +--------+ + + + | LACTATE | Urgent | 04/01/2013 | | Results for this | | | | 12:36 AM | | procedure are in the | | | | PDT | | results section. | + +--------+ + + + | CAPILLARY BLOOD | Routin | 04/01/2013 | | Results for this | | GLUCOSE (NO CHG), | e | 12:31 AM | | procedure are in the | | POC | | PDT | | results section. | + +--------+ + + + | RENAL FUNCTION SET | Urgent | 03/31/2013 | | Results for this | | (NA,K,CL,CO2,BUN,CRE | | 10:19 PM | | procedure are in the | | AT,GLUC,CA,PHOS,ALB | | PDT | | results section. | | ) | | | | | + +--------+ + + + | MAGNESIUM, PLASMA | Urgent | 03/31/2013 | | Results for this | | | | 10:19 PM | | procedure are in the | | | | PDT | | results section. | + +--------+ + + + | CAPILLARY BLOOD | Routin | 03/31/2013 | | Results for this | | GLUCOSE (NO CHG), | e | 8:06 PM | | procedure are in the | | POC | | PDT | | results section. | + +--------+ + + + | X-RAY ABD LTD | Routin | 03/31/2013 | | Results for this | | FEEDING TUBE EVAL | e | 4:23 PM | | procedure are in the | | PORTABLE | | PDT | | results section. | + +--------+ + + + | LIPASE, PLASMA | Urgent | 03/31/2013 | | Results for this | | | | 11:33 AM | | procedure are in the | | | | PDT | | results section. | + +--------+ + + + | CAPILLARY BLOOD | Routin | 03/31/2013 | | Results for this | | GLUCOSE (NO CHG), | e | 11:17 AM | | procedure are in the | | POC | | PDT | | results section. | + +--------+ + + + | X-RAY PORTABLE CHEST | Urgent | 03/31/2013 | | Results for this | | 1 VIEW | | 10:40 AM | | procedure are in the | | | | PDT | | results section. | + +--------+ + + + | CAPILLARY BLOOD | Routin | 03/31/2013 | | Results for this | | GLUCOSE (NO CHG), | e | 6:16 AM | | procedure are in the | | POC | | PDT | | results section. | + +--------+ + + + | CBC (HEMOGRAM) ONLY | Urgent | 03/31/2013 | | Results for this | | | | 4:11 AM | | procedure are in the | | | | PDT | | results section. | + +--------+ + + + | CBC ONLY | Urgent | 03/31/2013 | | Results for this | | | | 4:11 AM | | procedure are in the | | | | PDT | | results section. | + +--------+ + + + | PHOSPHORUS, PLASMA | Routin | 03/31/2013 | | Results for this | | | e | 4:11 AM | | procedure are in the | | | | PDT | | results section. | + +--------+ + + + | MAGNESIUM, PLASMA | Urgent | 03/31/2013 | | Results for this | | | | 4:11 AM | | procedure are in the | | | | PDT | | results section. | + +--------+ + + + | CAPILLARY BLOOD | Routin | 03/31/2013 | | Results for this | | GLUCOSE (NO CHG), | e | 12:05 AM | | procedure are in the | | POC | | PDT | | results section. | + +--------+ + + + | CAPILLARY BLOOD | Routin | 03/30/2013 | | Results for this | | GLUCOSE (NO CHG), | e | 8:30 PM | | procedure are in the | | POC | | PDT | | results section. | + +--------+ + + + | BASIC METABOLIC SET | Urgent | 03/30/2013 | | Results for this | | (NA, K, CL, TCO2, | | 8:20 PM | | procedure are in the | | BUN, CR, GLU, CA) | | PDT | | results section. | + +--------+ + + + | 12 LEAD ECG | Routin | 03/30/2013 | | Results for this | | | e | 8:19 PM | | procedure are in the | | | | PDT | | results section. | + +--------+ + + + | VASC LAB PORTABLE | Urgent | 03/30/2013 | | Results for this | | VENOUS DUPLEX LOWER | | 2:49 PM | | procedure are in the | | EXTREMITY BILATERAL | | PDT | | results section. | | COMPLETE | | | | | + +--------+ + + + | LIVER SET | Urgent | 03/30/2013 | | Results for this | | (AST,ALT,BILI | | 1:14 PM | | procedure are in the | | TOTAL,BILI | | PDT | | results section. | | DIRECT,ALK | | | | | | PHOS,ALB,PROT TOTAL) | | | | | + +--------+ + + + | LIPASE, PLASMA | Urgent | 03/30/2013 | | Results for this | | | | 1:14 PM | | procedure are in the | | | | PDT | | results section. | + +--------+ + + + | UA, DIPSTICK ONLY | Urgent | 03/30/2013 | | Results for this | | | | 1:13 PM | | procedure are in the | | | | PDT | | results section. | + +--------+ + + + | URINE, MICROSCOPIC | Urgent | 03/30/2013 | | Results for this | | EXAM | | 1:13 PM | | procedure are in the | | | | PDT | | results section. | + +--------+ + + + | URINE SCREEN FOR | Urgent | 03/30/2013 | | Results for this | | CULTURE | | 1:13 PM | | procedure are in the | | | | PDT | | results section. | + +--------+ + + + | CAPILLARY BLOOD | Routin | 03/30/2013 | | Results for this | | GLUCOSE (NO CHG), | e | 12:02 PM | | procedure are in the | | POC | | PDT | | results section. | + +--------+ + + + | RENAL FUNCTION SET | Urgent | 03/30/2013 | | Results for this | | (NA,K,CL,CO2,BUN,CRE | | 12:00 PM | | procedure are in the | | AT,GLUC,CA,PHOS,ALB | | PDT | | results section. | | ) | | | | | + +--------+ + + + | VANCOMYCIN, TROUGH | Urgent | 03/30/2013 | | Results for this | | | | 9:54 AM | | procedure are in the | | | | PDT | | results section. | + +--------+ + + + | CAPILLARY BLOOD | Routin | 03/30/2013 | | Results for this | | GLUCOSE (NO CHG), | e | 5:35 AM | | procedure are in the | | POC | | PDT | | results section. | + +--------+ + + + | BLOOD GASES, | Urgent | 03/30/2013 | | Results for this | | ARTERIAL - LAB | | 3:40 AM | | procedure are in the | | | | PDT | | results section. | + +--------+ + + + | LACTATE, POC | Routin | 03/30/2013 | Intestinal | Results for this | | | e | 1:53 AM | diverticular abscess | procedure are in the | | | | PDT | | results section. | + +--------+ + + + | HEMOGLOBIN, POC RESP | Routin | 03/30/2013 | Intestinal | Results for this | | | e | 1:53 AM | diverticular abscess | procedure are in the | | | | PDT | | results section. | + +--------+ + + + | IONIZD CA WB, POC | Routin | 03/30/2013 | Intestinal | Results for this | | RESP | e | 1:53 AM | diverticular abscess | procedure are in the | | | | PDT | | results section. | + +--------+ + + + | POTASSIUM WB, POC | Routin | 03/30/2013 | Intestinal | Results for this | | RESP | e | 1:53 AM | diverticular abscess | procedure are in the | | | | PDT | | results section. | + +--------+ + + + | SODIUM WB, POC RESP | Routin | 03/30/2013 | Intestinal | Results for this | | | e | 1:53 AM | diverticular abscess | procedure are in the | | | | PDT | | results section. | + +--------+ + + + | BLOOD GAS ART, POC | Routin | 03/30/2013 | Intestinal | Results for this | | RESP | e | 1:53 AM | diverticular abscess | procedure are in the | | | | PDT | | results section. | + +--------+ + + + | X-RAY PORTABLE CHEST | Routin | 03/30/2013 | | Results for this | | 1 VIEW | e | 1:51 AM | | procedure are in the | | | | PDT | | results section. | + +--------+ + + + | NT-PRO BNP | Urgent | 03/30/2013 | | Results for this | | | | 1:50 AM | | procedure are in the | | | | PDT | | results section. | + +--------+ + + + | CBC (HEMOGRAM) ONLY | Urgent | 03/30/2013 | | Results for this | | | | 1:50 AM | | procedure are in the | | | | PDT | | results section. | + +--------+ + + + | TROPONIN I, PLASMA | Urgent | 03/30/2013 | | Results for this | | | | 1:50 AM | | procedure are in the | | | | PDT | | results section. | + +--------+ + + + | BASIC METABOLIC SET | Urgent | 03/30/2013 | | Results for this | | (NA, K, CL, TCO2, | | 1:50 AM | | procedure are in the | | BUN, CR, GLU, CA) | | PDT | | results section. | + +--------+ + + + | CBC ONLY | Urgent | 03/30/2013 | | Results for this | | | | 1:50 AM | | procedure are in the | | | | PDT | | results section. | + +--------+ + + + | PHOSPHORUS, PLASMA | Routin | 03/30/2013 | | Results for this | | | e | 1:50 AM | | procedure are in the | | | | PDT | | results section. | + +--------+ + + + | MAGNESIUM, PLASMA | Urgent | 03/30/2013 | | Results for this | | | | 1:50 AM | | procedure are in the | | | | PDT | | results section. | + +--------+ + + + | TRANSTHORACIC | Urgent | 03/30/2013 | | Results for this | | ECHOCARDIOGRAM, | | 12:00 AM | | procedure are in the | | ADULT | | PDT | | results section. | + +--------+ + + + | CAPILLARY BLOOD | Routin | 03/29/2013 | | Results for this | | GLUCOSE (NO CHG), | e | 11:51 PM | | procedure are in the | | POC | | PDT | | results section. | + +--------+ + + + | X-RAY PORTABLE CHEST | Routin | 03/29/2013 | | Results for this | | 1 VIEW | e | 9:59 PM | | procedure are in the | | | | PDT | | results section. | + +--------+ + + + | CAPILLARY BLOOD | Routin | 03/29/2013 | | Results for this | | GLUCOSE (NO CHG), | e | 6:53 PM | | procedure are in the | | POC | | PDT | | results section. | + +--------+ + + + | CT ABDOMEN AND | Routin | 03/29/2013 | | Results for this | | PELVIS W IV CONTRAST | e | 2:02 PM | | procedure are in the | | | | PDT | | results section. | + +--------+ + + + | CAPILLARY BLOOD | Routin | 03/29/2013 | | Results for this | | GLUCOSE (NO CHG), | e | 1:21 PM | | procedure are in the | | POC | | PDT | | results section. | + +--------+ + + + | CAPILLARY BLOOD | Routin | 03/29/2013 | | Results for this | | GLUCOSE (NO CHG), | e | 6:20 AM | | procedure are in the | | POC | | PDT | | results section. | + +--------+ + + + | 12 LEAD ECG | Routin | 03/29/2013 | | Results for this | | | e | 4:55 AM | | procedure are in the | | | | PDT | | results section. | + +--------+ + + + | CBC (HEMOGRAM) ONLY | Urgent | 03/29/2013 | | Results for this | | | | 2:34 AM | | procedure are in the | | | | PDT | | results section. | + +--------+ + + + | BASIC METABOLIC SET | Urgent | 03/29/2013 | | Results for this | | (NA, K, CL, TCO2, | | 2:34 AM | | procedure are in the | | BUN, CR, GLU, CA) | | PDT | | results section. | + +--------+ + + + | CBC ONLY | Urgent | 03/29/2013 | | Results for this | | | | 2:34 AM | | procedure are in the | | | | PDT | | results section. | + +--------+ + + + | PHOSPHORUS, PLASMA | Routin | 03/29/2013 | | Results for this | | | e | 2:34 AM | | procedure are in the | | | | PDT | | results section. | + +--------+ + + + | MAGNESIUM, PLASMA | Urgent | 03/29/2013 | | Results for this | | | | 2:34 AM | | procedure are in the | | | | PDT | | results section. | + +--------+ + + + | CAPILLARY BLOOD | Routin | 03/29/2013 | | Results for this | | GLUCOSE (NO CHG), | e | 1:11 AM | | procedure are in the | | POC | | PDT | | results section. | + +--------+ + + + | VANCOMYCIN, TROUGH | Urgent | 03/28/2013 | | Results for this | | | | 7:56 PM | | procedure are in the | | | | PDT | | results section. | + +--------+ + + + | CAPILLARY BLOOD | Routin | 03/28/2013 | | Results for this | | GLUCOSE (NO CHG), | e | 6:10 PM | | procedure are in the | | POC | | PDT | | results section. | + +--------+ + + + | BLOOD GASES, | Urgent | 03/28/2013 | | Results for this | | ARTERIAL - LAB | | 5:10 PM | | procedure are in the | | | | PDT | | results section. | + +--------+ + + + | CAPILLARY BLOOD | Routin | 03/28/2013 | | Results for this | | GLUCOSE (NO CHG), | e | 2:09 PM | | procedure are in the | | POC | | PDT | | results section. | + +--------+ + + + | X-RAY ABD LTD | Routin | 03/28/2013 | | Results for this | | FEEDING TUBE EVAL | e | 12:41 PM | | procedure are in the | | PORTABLE | | PDT | | results section. | + +--------+ + + + | X-RAY PORTABLE CHEST | Urgent | 03/28/2013 | | Results for this | | 1 VIEW | | 9:07 AM | | procedure are in the | | | | PDT | | results section. | + +--------+ + + + | CAPILLARY BLOOD | Routin | 03/28/2013 | | Results for this | | GLUCOSE (NO CHG), | e | 5:56 AM | | procedure are in the | | POC | | PDT | | results section. | + +--------+ + + + | CBC (HEMOGRAM) ONLY | Urgent | 03/28/2013 | | Results for this | | | | 1:54 AM | | procedure are in the | | | | PDT | | results section. | + +--------+ + + + | BASIC METABOLIC SET | Urgent | 03/28/2013 | | Results for this | | (NA, K, CL, TCO2, | | 1:54 AM | | procedure are in the | | BUN, CR, GLU, CA) | | PDT | | results section. | + +--------+ + + + | CBC ONLY | Urgent | 03/28/2013 | | Results for this | | | | 1:54 AM | | procedure are in the | | | | PDT | | results section. | + +--------+ + + + | PHOSPHORUS, PLASMA | Routin | 03/28/2013 | | Results for this | | | e | 1:54 AM | | procedure are in the | | | | PDT | | results section. | + +--------+ + + + | MAGNESIUM, PLASMA | Urgent | 03/28/2013 | | Results for this | | | | 1:54 AM | | procedure are in the | | | | PDT | | results section. | + +--------+ + + + | CAPILLARY BLOOD | Routin | 03/27/2013 | | Results for this | | GLUCOSE (NO CHG), | e | 11:54 PM | | procedure are in the | | POC | | PDT | | results section. | + +--------+ + + + | CAPILLARY BLOOD | Routin | 03/27/2013 | | Results for this | | GLUCOSE (NO CHG), | e | 5:42 PM | | procedure are in the | | POC | | PDT | | results section. | + +--------+ + + + | TROPONIN I, PLASMA | Urgent | 03/27/2013 | | Results for this | | | | 5:42 PM | | procedure are in the | | | | PDT | | results section. | + +--------+ + + + | X-RAY PORTABLE CHEST | Routin | 03/27/2013 | | Results for this | | 1 VIEW | e | 1:36 PM | | procedure are in the | | | | PDT | | results section. | + +--------+ + + + | CT ABDOMEN AND | Routin | 03/27/2013 | | Results for this | | PELVIS W IV CONTRAST | e | 1:11 PM | | procedure are in the | | | | PDT | | results section. | + +--------+ + + + | 12 LEAD ECG | Routin | 03/27/2013 | | Results for this | | | e | 1:10 PM | | procedure are in the | | | | PDT | | results section. | + +--------+ + + + | TROPONIN I, PLASMA | Urgent | 03/27/2013 | | Results for this | | | | 11:15 AM | | procedure are in the | | | | PDT | | results section. | + +--------+ + + + | CAPILLARY BLOOD | Routin | 03/27/2013 | | Results for this | | GLUCOSE (NO CHG), | e | 11:14 AM | | procedure are in the | | POC | | PDT | | results section. | + +--------+ + + + | CAPILLARY BLOOD | Routin | 03/27/2013 | | Results for this | | GLUCOSE (NO CHG), | e | 5:22 AM | | procedure are in the | | POC | | PDT | | results section. | + +--------+ + + + | CBC (HEMOGRAM) ONLY | Urgent | 03/27/2013 | | Results for this | | | | 3:13 AM | | procedure are in the | | | | PDT | | results section. | + +--------+ + + + | TROPONIN I, PLASMA | Urgent | 03/27/2013 | | Results for this | | | | 3:13 AM | | procedure are in the | | | | PDT | | results section. | + +--------+ + + + | BASIC METABOLIC SET | Urgent | 03/27/2013 | | Results for this | | (NA, K, CL, TCO2, | | 3:13 AM | | procedure are in the | | BUN, CR, GLU, CA) | | PDT | | results section. | + +--------+ + + + | CBC ONLY | Urgent | 03/27/2013 | | Results for this | | | | 3:13 AM | | procedure are in the | | | | PDT | | results section. | + +--------+ + + + | PHOSPHORUS, PLASMA | Routin | 03/27/2013 | | Results for this | | | e | 3:13 AM | | procedure are in the | | | | PDT | | results section. | + +--------+ + + + | MAGNESIUM, PLASMA | Urgent | 03/27/2013 | | Results for this | | | | 3:13 AM | | procedure are in the | | | | PDT | | results section. | + +--------+ + + + | US DOPPLER LOWER | Routin | 03/27/2013 | | Results for this | | EXTREMITY BILAT | e | 1:18 AM | | procedure are in the | | | | PDT | | results section. | + +--------+ + + + | CAPILLARY BLOOD | Routin | 03/27/2013 | | Results for this | | GLUCOSE (NO CHG), | e | 12:03 AM | | procedure are in the | | POC | | PDT | | results section. | + +--------+ + + + | C. DIFFICILE TOXIN, | Routin | 03/26/2013 | | Results for this | | W/REFLEX | e | 11:54 PM | | procedure are in the | | CONFIRMATION IF | | PDT | | results section. | | INDETERMINATE | | | | | | RESULTS | | | | | + +--------+ + + + | X-RAY PORTABLE CHEST | Routin | 03/26/2013 | | Results for this | | 1 VIEW | e | 10:36 PM | | procedure are in the | | | | PDT | | results section. | + +--------+ + + + | BLOOD GASES, | Urgent | 03/26/2013 | | Results for this | | ARTERIAL - LAB | | 8:38 PM | | procedure are in the | | | | PDT | | results section. | + +--------+ + + + | 12 LEAD ECG | Routin | 03/26/2013 | | Results for this | | | e | 7:45 PM | | procedure are in the | | | | PDT | | results section. | + +--------+ + + + | 12 LEAD ECG | Routin | 03/26/2013 | | Results for this | | | e | 7:44 PM | | procedure are in the | | | | PDT | | results section. | + +--------+ + + + | CAPILLARY BLOOD | Routin | 03/26/2013 | | Results for this | | GLUCOSE (NO CHG), | e | 7:32 PM | | procedure are in the | | POC | | PDT | | results section. | + +--------+ + + + | CBC AND AUTO DIFF | Routin | 03/26/2013 | | Results for this | | | e | 7:17 PM | | procedure are in the | | | | PDT | | results section. | + +--------+ + + + | CBC, WITH | Routin | 03/26/2013 | | Results for this | | DIFFERENTIAL | e | 7:17 PM | | procedure are in the | | | | PDT | | results section. | + +--------+ + + + | LIVER SET | Urgent | 03/26/2013 | | Results for this | | (AST,ALT,BILI | | 7:17 PM | | procedure are in the | | TOTAL,BILI | | PDT | | results section. | | DIRECT,ALK | | | | | | PHOS,ALB,PROT TOTAL) | | | | | + +--------+ + + + | TROPONIN I, PLASMA | Routin | 03/26/2013 | | Results for this | | | e | 7:17 PM | | procedure are in the | | | | PDT | | results section. | + +--------+ + + + | BASIC METABOLIC SET | Routin | 03/26/2013 | | Results for this | | (NA, K, CL, TCO2, | e | 7:17 PM | | procedure are in the | | BUN, CR, GLU, CA) | | PDT | | results section. | + +--------+ + + + | X-RAY PORTABLE CHEST | Urgent | 03/26/2013 | | Results for this | | 1 VIEW | | 6:10 PM | | procedure are in the | | | | PDT | | results section. | + +--------+ + + + | CAPILLARY BLOOD | Routin | 03/26/2013 | | Results for this | | GLUCOSE (NO CHG), | e | 5:57 PM | | procedure are in the | | POC | | PDT | | results section. | + +--------+ + + + | X-RAY PORTABLE | Urgent | 03/26/2013 | | Results for this | | ABDOMEN 1 VIEW | | 5:56 PM | | procedure are in the | | | | PDT | | results section. | + +--------+ + + + | TROPONIN I, PLASMA | Routin | 03/26/2013 | | Results for this | | | e | 12:03 PM | | procedure are in the | | | | PDT | | results section. | + +--------+ + + + | CAPILLARY BLOOD | Routin | 03/26/2013 | | Results for this | | GLUCOSE (NO CHG), | e | 11:50 AM | | procedure are in the | | POC | | PDT | | results section. | + +--------+ + + + | CAPILLARY BLOOD | Routin | 03/26/2013 | | Results for this | | GLUCOSE (NO CHG), | e | 6:08 AM | | procedure are in the | | POC | | PDT | | results section. | + +--------+ + + + | CBC (HEMOGRAM) ONLY | Urgent | 03/26/2013 | | Results for this | | | | 4:01 AM | | procedure are in the | | | | PDT | | results section. | + +--------+ + + + | TROPONIN I, PLASMA | Routin | 03/26/2013 | | Results for this | | | e | 4:01 AM | | procedure are in the | | | | PDT | | results section. | + +--------+ + + + | BASIC METABOLIC SET | Urgent | 03/26/2013 | | Results for this | | (NA, K, CL, TCO2, | | 4:01 AM | | procedure are in the | | BUN, CR, GLU, CA) | | PDT | | results section. | + +--------+ + + + | CBC ONLY | Urgent | 03/26/2013 | | Results for this | | | | 4:01 AM | | procedure are in the | | | | PDT | | results section. | + +--------+ + + + | PHOSPHORUS, PLASMA | Routin | 03/26/2013 | | Results for this | | | e | 4:01 AM | | procedure are in the | | | | PDT | | results section. | + +--------+ + + + | MAGNESIUM, PLASMA | Urgent | 03/26/2013 | | Results for this | | | | 4:01 AM | | procedure are in the | | | | PDT | | results section. | + +--------+ + + + | CAPILLARY BLOOD | Routin | 03/25/2013 | | Results for this | | GLUCOSE (NO CHG), | e | 10:39 PM | | procedure are in the | | POC | | PDT | | results section. | + +--------+ + + + | 12 LEAD ECG | Routin | 03/25/2013 | | Results for this | | | e | 8:57 PM | | procedure are in the | | | | PDT | | results section. | + +--------+ + + + | X-RAY PORTABLE CHEST | Routin | 03/25/2013 | | Results for this | | 1 VIEW | e | 8:43 PM | | procedure are in the | | | | PDT | | results section. | + +--------+ + + + | CBC AND AUTO DIFF | Routin | 03/25/2013 | | Results for this | | | e | 8:35 PM | | procedure are in the | | | | PDT | | results section. | + +--------+ + + + | CBC, WITH | Routin | 03/25/2013 | | Results for this | | DIFFERENTIAL | e | 8:35 PM | | procedure are in the | | | | PDT | | results section. | + +--------+ + + + | TROPONIN I, PLASMA | Routin | 03/25/2013 | | Results for this | | | e | 8:35 PM | | procedure are in the | | | | PDT | | results section. | + +--------+ + + + | BASIC METABOLIC SET | Urgent | 03/25/2013 | | Results for this | | (NA, K, CL, TCO2, | | 8:35 PM | | procedure are in the | | BUN, CR, GLU, CA) | | PDT | | results section. | + +--------+ + + + | PHOSPHORUS, PLASMA | Routin | 03/25/2013 | | Results for this | | | e | 8:35 PM | | procedure are in the | | | | PDT | | results section. | + +--------+ + + + | MAGNESIUM, PLASMA | Routin | 03/25/2013 | | Results for this | | | e | 8:35 PM | | procedure are in the | | | | PDT | | results section. | + +--------+ + + + | CAPILLARY BLOOD | Routin | 03/25/2013 | | Results for this | | GLUCOSE (NO CHG), | e | 8:26 PM | | procedure are in the | | POC | | PDT | | results section. | + +--------+ + + + | UA, DIPSTICK ONLY | Routin | 03/25/2013 | | Results for this | | | e | 8:25 PM | | procedure are in the | | | | PDT | | results section. | + +--------+ + + + | URINE, MICROSCOPIC | Routin | 03/25/2013 | | Results for this | | EXAM | e | 8:25 PM | | procedure are in the | | | | PDT | | results section. | + +--------+ + + + | URINE SCREEN FOR | Routin | 03/25/2013 | | Results for this | | CULTURE | e | 8:25 PM | | procedure are in the | | | | PDT | | results section. | + +--------+ + + + | CULTURE, URINE BACTI | Routin | 03/25/2013 | | Results for this | | | e | 8:25 PM | | procedure are in the | | | | PDT | | results section. | + +--------+ + + + | CAPILLARY BLOOD | Routin | 03/25/2013 | | Results for this | | GLUCOSE (NO CHG), | e | 5:23 PM | | procedure are in the | | POC | | PDT | | results section. | + +--------+ + + + | X-RAY ABD LTD | Routin | 03/25/2013 | | Results for this | | FEEDING TUBE EVAL | e | 4:44 PM | | procedure are in the | | | | PDT | | results section. | + +--------+ + + + | CAPILLARY BLOOD | Routin | 03/25/2013 | | Results for this | | GLUCOSE (NO CHG), | e | 12:37 PM | | procedure are in the | | POC | | PDT | | results section. | + +--------+ + + + | 12 LEAD ECG | Routin | 03/25/2013 | | Results for this | | | e | 10:28 AM | | procedure are in the | | | | PDT | | results section. | + +--------+ + + + | CAPILLARY BLOOD | Routin | 03/25/2013 | | Results for this | | GLUCOSE (NO CHG), | e | 6:54 AM | | procedure are in the | | POC | | PDT | | results section. | + +--------+ + + + | CBC (HEMOGRAM) ONLY | Urgent | 03/25/2013 | | Results for this | | | | 3:09 AM | | procedure are in the | | | | PDT | | results section. | + +--------+ + + + | BASIC METABOLIC SET | Urgent | 03/25/2013 | | Results for this | | (NA, K, CL, TCO2, | | 3:09 AM | | procedure are in the | | BUN, CR, GLU, CA) | | PDT | | results section. | + +--------+ + + + | CBC ONLY | Urgent | 03/25/2013 | | Results for this | | | | 3:09 AM | | procedure are in the | | | | PDT | | results section. | + +--------+ + + + | PHOSPHORUS, PLASMA | Routin | 03/25/2013 | | Results for this | | | e | 3:09 AM | | procedure are in the | | | | PDT | | results section. | + +--------+ + + + | MAGNESIUM, PLASMA | Urgent | 03/25/2013 | | Results for this | | | | 3:09 AM | | procedure are in the | | | | PDT | | results section. | + +--------+ + + + | CAPILLARY BLOOD | Routin | 03/25/2013 | | Results for this | | GLUCOSE (NO CHG), | e | 1:21 AM | | procedure are in the | | POC | | PDT | | results section. | + +--------+ + + + | CAPILLARY BLOOD | Routin | 03/24/2013 | | Results for this | | GLUCOSE (NO CHG), | e | 6:56 PM | | procedure are in the | | POC | | PDT | | results section. | + +--------+ + + + | CAPILLARY BLOOD | Routin | 03/24/2013 | | Results for this | | GLUCOSE (NO CHG), | e | 6:31 PM | | procedure are in the | | POC | | PDT | | results section. | + +--------+ + + + | CAPILLARY BLOOD | Routin | 03/24/2013 | | Results for this | | GLUCOSE (NO CHG), | e | 5:44 PM | | procedure are in the | | POC | | PDT | | results section. | + +--------+ + + + | CAPILLARY BLOOD | Routin | 03/24/2013 | | Results for this | | GLUCOSE (NO CHG), | e | 1:05 PM | | procedure are in the | | POC | | PDT | | results section. | + +--------+ + + + | CAPILLARY BLOOD | Routin | 03/24/2013 | | Results for this | | GLUCOSE (NO CHG), | e | 1:02 PM | | procedure are in the | | POC | | PDT | | results section. | + +--------+ + + + | PHOSPHORUS, PLASMA | Urgent | 03/24/2013 | | Results for this | | | | 12:39 PM | | procedure are in the | | | | PDT | | results section. | + +--------+ + + + | CBC (HEMOGRAM) ONLY | Urgent | 03/24/2013 | | Results for this | | | | 1:29 AM | | procedure are in the | | | | PDT | | results section. | + +--------+ + + + | BASIC METABOLIC SET | Urgent | 03/24/2013 | | Results for this | | (NA, K, CL, TCO2, | | 1:29 AM | | procedure are in the | | BUN, CR, GLU, CA) | | PDT | | results section. | + +--------+ + + + | CBC ONLY | Urgent | 03/24/2013 | | Results for this | | | | 1:29 AM | | procedure are in the | | | | PDT | | results section. | + +--------+ + + + | PHOSPHORUS, PLASMA | Urgent | 03/24/2013 | | Results for this | | | | 1:29 AM | | procedure are in the | | | | PDT | | results section. | + +--------+ + + + | MAGNESIUM, PLASMA | Urgent | 03/24/2013 | | Results for this | | | | 1:29 AM | | procedure are in the | | | | PDT | | results section. | + +--------+ + + + | POTASSIUM, PLASMA | Urgent | 03/23/2013 | | Results for this | | | | 5:40 PM | | procedure are in the | | | | PDT | | results section. | + +--------+ + + + | TROPONIN I, PLASMA | Urgent | 03/23/2013 | | Results for this | | | | 5:40 PM | | procedure are in the | | | | PDT | | results section. | + +--------+ + + + | UA, DIPSTICK ONLY | Urgent | 03/23/2013 | | Results for this | | | | 12:06 PM | | procedure are in the | | | | PDT | | results section. | + +--------+ + + + | URINE, MICROSCOPIC | Urgent | 03/23/2013 | | Results for this | | EXAM | | 12:06 PM | | procedure are in the | | | | PDT | | results section. | + +--------+ + + + | CULTURE, URINE BACTI | Routin | 03/23/2013 | | Results for this | | | e | 12:06 PM | | procedure are in the | | | | PDT | | results section. | + +--------+ + + + | 12 LEAD ECG | Urgent | 03/23/2013 | | Results for this | | | | 10:06 AM | | procedure are in the | | | | PDT | | results section. | + +--------+ + + + | X-RAY PORTABLE CHEST | Urgent | 03/23/2013 | | Results for this | | 1 VIEW | | 9:56 AM | | procedure are in the | | | | PDT | | results section. | + +--------+ + + + | TROPONIN I, PLASMA | Urgent | 03/23/2013 | | Results for this | | | | 9:37 AM | | procedure are in the | | | | PDT | | results section. | + +--------+ + + + | X-RAY CHEST 1 VIEW | Routin | 03/23/2013 | | Results for this | | | e | 6:39 AM | | procedure are in the | | | | PDT | | results section. | + +--------+ + + + | CAPILLARY BLOOD | Routin | 03/23/2013 | | Results for this | | GLUCOSE (NO CHG), | e | 2:56 AM | | procedure are in the | | POC | | PDT | | results section. | + +--------+ + + + | CBC (HEMOGRAM) ONLY | Urgent | 03/23/2013 | | Results for this | | | | 2:49 AM | | procedure are in the | | | | PDT | | results section. | + +--------+ + + + | BASIC METABOLIC SET | Urgent | 03/23/2013 | | Results for this | | (NA, K, CL, TCO2, | | 2:49 AM | | procedure are in the | | BUN, CR, GLU, CA) | | PDT | | results section. | + +--------+ + + + | CBC ONLY | Urgent | 03/23/2013 | | Results for this | | | | 2:49 AM | | procedure are in the | | | | PDT | | results section. | + +--------+ + + + | PHOSPHORUS, PLASMA | Urgent | 03/23/2013 | | Results for this | | | | 2:49 AM | | procedure are in the | | | | PDT | | results section. | + +--------+ + + + | MAGNESIUM, PLASMA | Urgent | 03/23/2013 | | Results for this | | | | 2:49 AM | | procedure are in the | | | | PDT | | results section. | + +--------+ + + + | ABSCESS BODY | Routin | 03/22/2013 | | Results for this | | DRAINAGE | e | 9:25 PM | | procedure are in the | | | | PDT | | results section. | + +--------+ + + + | CULTURE, WOUND DEEP | Routin | 03/22/2013 | | Results for this | | W/ ANAEROBE | e | 9:15 PM | | procedure are in the | | | | PDT | | results section. | + +--------+ + + + | X-RAY CHEST 1 VIEW | Urgent | 03/22/2013 | | Results for this | | | | 6:04 PM | | procedure are in the | | | | PDT | | results section. | + +--------+ + + + | ANTIBODY SCREEN | Urgent | 03/22/2013 | | Results for this | | | | 5:01 PM | | procedure are in the | | | | PDT | | results section. | + +--------+ + + + | TYPE AND SCREEN | Urgent | 03/22/2013 | | Results for this | | | | 5:01 PM | | procedure are in the | | | | PDT | | results section. | + +--------+ + + + | ABO & RH TYPE | Urgent | 03/22/2013 | | Results for this | | | | 5:01 PM | | procedure are in the | | | | PDT | | results section. | + +--------+ + + + | CBC (HEMOGRAM) ONLY | Urgent | 03/22/2013 | | Results for this | | | | 5:00 PM | | procedure are in the | | | | PDT | | results section. | + +--------+ + + + | LIVER SET | Urgent | 03/22/2013 | | Results for this | | (AST,ALT,BILI | | 5:00 PM | | procedure are in the | | TOTAL,BILI | | PDT | | results section. | | DIRECT,ALK | | | | | | PHOS,ALB,PROT TOTAL) | | | | | + +--------+ + + + | RENAL FUNCTION SET | Urgent | 03/22/2013 | | Results for this | | (NA,K,CL,CO2,BUN,CRE | | 5:00 PM | | procedure are in the | | AT,GLUC,CA,PHOS,ALB | | PDT | | results section. | | ) | | | | | + +--------+ + + + | CBC ONLY | Urgent | 03/22/2013 | | Results for this | | | | 5:00 PM | | procedure are in the | | | | PDT | | results section. | + +--------+ + + + | COAGULOPATHY PANEL | Routin | 03/22/2013 | | Results for this | | (INR,APTT,FIBRINOGEN | e | 5:00 PM | | procedure are in the | | ) | | PDT | | results section. | + +--------+ + + + | LACTATE | Routin | 03/22/2013 | | Results for this | | | e | 5:00 PM | | procedure are in the | | | | PDT | | results section. | + +--------+ + + + | MAGNESIUM, PLASMA | Urgent | 03/22/2013 | | Results for this | | | | 5:00 PM | | procedure are in the | | | | PDT | | results section. | + +--------+ + + + | ORDERS OTHER | | 03/22/2013 | | Results for this | | | | 12:00 AM | | procedure are in the | | | | PDT | | results section. | + +--------+ + + + | ORDERS OTHER | | 03/22/2013 | | Results for this | | | | 12:00 AM | | procedure are in the | | | | PDT | | results section. | + +--------+ + + + documented in this encounter Results CAPILLARY BLOOD GLUCOSE (NO CHG), POC (04/11/2013 6:10 AM PDT) + +---------+ + + + | Component | Value | Ref Range | Performed | Pathologist | | | | | At | Signature | + +---------+ + + + | BLOOD | 114 (H) | 60 - 99 mg/dL | [facility] | | | GLUCOSE, | | | [facility] | | | POC | | | [facility] | | | | | | OF CARE | | | | | | TESTS | | + +---------+ + + + + + | Specimen | + + | | + + + + + + + | Performing | Address | City/State/Zipcode | Phone Number | | Organization | | | | + + + + + | [facility] | [address] | [place], [place] | | | [facility] | [address] | [address] | | | TESTS | | | | + + + + + CAPILLARY BLOOD GLUCOSE (NO CHG), POC (04/11/2013 12:10 AM PDT) + +---------+ + + + | Component | Value | Ref Range | Performed | Pathologist | | | | | At | Signature | + +---------+ + + + | BLOOD | 105 (H) | 60 - 99 mg/dL | [facility] | | | GLUCOSE, | | | [facility] | | | POC | | | [facility] | | | | | | OF CARE | | | | | | TESTS | | + +---------+ + + + + + | Specimen | + + | | + + + + + + + | Performing | Address | City/State/Zipcode | Phone Number | | Organization | | | | + + + + + | [facility] | [address] | [place], [place] | | | [facility] | [address] | [address] | | | TESTS | | | | + + + + + CAPILLARY BLOOD GLUCOSE (NO CHG), POC (04/10/2013 6:26 PM PDT) + +---------+ + + + | Component | Value | Ref Range | Performed | Pathologist | | | | | At | Signature | + +---------+ + + + | BLOOD | 113 (H) | 60 - 99 mg/dL | [facility] | | | GLUCOSE, | | | [facility] | | | POC | | | [facility] | | | | | | OF CARE | | | | | | TESTS | | + +---------+ + + + + + | Specimen | + + | | + + + + + + + | Performing | Address | City/State/Zipcode | Phone Number | | Organization | | | | + + + + + | [facility] | [address] | [place], [place] | | | [facility] | [address] | [address] | | | TESTS | | | | + + + + + CAPILLARY BLOOD GLUCOSE (NO CHG), POC (04/10/2013 12:50 PM PDT) + +---------+ + + + | Component | Value | Ref Range | Performed | Pathologist | | | | | At | Signature | + +---------+ + + + | BLOOD | 149 (H) | 60 - 99 mg/dL | [facility] | | | GLUCOSE, | | | [facility] | | | POC | | | [place] | | | | | | OF CARE | | | | | | TESTS | | + +---------+ + + + + + | Specimen | + + | | + + + + + + + | Performing | Address | City/State/Zipcode | Phone Number | | Organization | | | | + + + + + | [facility] | [address] | [place], [place] | | | [facility] | [address] | [address] | | | TESTS | | | | + + + + + CAPILLARY BLOOD GLUCOSE (NO CHG), POC (04/10/2013 6:29 AM PDT) + +---------+ + + + | Component | Value | Ref Range | Performed | Pathologist | | | | | At | Signature | + +---------+ + + + | BLOOD | 130 (H) | 60 - 99 mg/dL | [facility] | | | GLUCOSE, | | | [facility] | | | POC | | | [facility] | | | | | | OF CARE | | | | | | TESTS | | + +---------+ + + + + + | Specimen | + + | | + + + + + + + | Performing | Address | City/State/Zipcode | Phone Number | | Organization | | | | + + + + + | [facility] | [address] | [place], [place] | | | [facility] | [address] | [address] | | | TESTS | | | | + + + + + PHOSPHORUS, PLASMA (04/10/2013 3:40 AM PDT) + +-------+ + + + | Component | Value | Ref Range | Performed | Pathologist | | | | | At | Signature | + +-------+ + + + | PHOSPHORUS, | 3.1 | 2.4 - 4.7 mg/dL | [facility] | | | PLASMA | | | LABORATORY | | | (LAB) | | | SERVICES, | | | | | | CORE | | + +-------+ + + + + + | Specimen | + + | Blood - Blood | + + + + + + + | Performing | Address | City/State/Zipcode | Phone Number | | Organization | | | | + + + + + | [facility] | [address] | [place] [address] | | | SERVICES, [place] | [address] | | | + + + + + COMPLETE METABOLIC SET (NA,K,CL,CO2,BUN,CREAT,GLUC,CA,AST,ALT,BILI TOTAL,ALK PHOS,ALB,PROT TOTAL) (04/10/2013 3:40 AM PDT) + + + + + + | Component | Value | Ref Range | Performed | Pathologist | | | | | At | Signature | + + + + + + | GLUCOSE, | 95 | 60 - 99 mg/dL | [facility] | | | PLASMA | | | LABORATORY | | | (LAB) | | | SERVICES, | | | | | | CORE | | + + + + + + | BUN, PLASMA | 47 (H) | 6 - 20 mg/dL | [facility] | | | (LAB) | | | LABORATORY | | | | | | SERVICES, | | | | | | CORE | | + + + + + + | CREATININE | 0.53 (L) | 0.60 - 1.10 | [facility] | | | PLASMA | | mg/dL | LABORATORY | | | (LAB) | | | SERVICES, | | | | | | CORE | | + + + + + + | EGFR | >60 | >60 mL/min | [facility] | | | - | | | LABORATORY | | | [place] | | | SERVICES, | | | | | | CORE | | + + + + + + | EGFR NON | >60 | >60 mL/min | [facility] | | | -[facility] | | | LABORATORY | | | [facility] | | | SERVICES, | | | | | | CORE | | + + + + + + | SODIUM, | 142 | 136 - 145 | [facility] | | | PLASMA | | mmol/L | LABORATORY | | | (LAB) | | | SERVICES, | | | | | | CORE | | + + + + + + | POTASSIUM, | 4.3 | 3.4 - 5.0 | [facility] | | | PLASMA | | mmol/L | LABORATORY | | | (LAB) | | | SERVICES, | | | | | | CORE | | + + + + + + | CHLORIDE, | 110 (H) | 97 - 108 mmol/L | [facility] | | | PLASMA | | | LABORATORY | | | (LAB) | | | SERVICES, | | | | | | CORE | | + + + + + + | TOTAL CO2, | 25 | 21 - 32 mmol/L | [facility] | | | PLASMA | | | LABORATORY | | | (LAB) | | | SERVICES, | | | | | | CORE | | + + + + + + | CALCIUM, | 9.2 | 8.6 - 10.2 | [facility] | | | PLASMA | | mg/dL | LABORATORY | | | (LAB) | | | SERVICES, | | | | | | CORE | | + + + + + + | BILIRUBIN | 0.3 | 0.3 - 1.2 mg/dL | [facility] | | | TOTAL | | | LABORATORY | | | | | | SERVICES, | | | | | | CORE | | + + + + + + | TOTAL | 7.1 | 6.4 - 8.2 g/dL | [facility] | | | PROTEIN, | | | LABORATORY | | | PLASMA | | | SERVICES, | | | (LAB) | | | CORE | | + + + + + + | ALBUMIN, | 3.1 (L) | 3.5 - 4.7 g/dL | [facility] | | | PLASMA | | | LABORATORY | | | (LAB) | | | SERVICES, | | | | | | CORE | | + + + + + + | ALK PHOS | 75 | 53 - 141 U/L | [facility] | | | | | | LABORATORY | | | | | | SERVICES, | | | | | | CORE | | + + + + + + | AST(SGOT) | 19 | 15 - 41 U/L | [facility] | | | | | | LABORATORY | | | | | | SERVICES, | | | | | | CORE | | + + + + + + | ALT (SGPT) | 15 | 12 - 60 U/L | [facility] | | | | | | LABORATORY | | | | | | SERVICES, | | | | | | CORE | | + + + + + + | ANION | 9 | 4 - 11 mmol/L | [facility] | | | GAP(ALB | | | LABORATORY | | | CORRECTED) | | | SERVICES, | | | | | | CORE | | + + + + + + | POTASSIUM | No Hemo | | [facility] | | | CMNT | | | LABORATORY | | | | | | SERVICES, | | | | | | CORE | | + + + + + + | BILI T CMNT | No Hemo | | [facility] | | | | | | LABORATORY | | | | | | SERVICES, | | | | | | CORE | | + + + + + + | AST CMNT | No Hemo | | [facility] | | | | | | LABORATORY | | | | | | SERVICES, | | | | | | CORE | | + + + + + + | ANION GAP | 7 | mmol/L | [facility] | | | | | | LABORATORY | | | | | | SERVICES, | | | | | | CORE | | + + + + + + + + | Specimen | + + | Blood - Blood | + + + + + | Narrative | Performed At | + + + | GFR is estimated using the MDRD equation recommended by the | [facility] | | National Kidney Disease Education Program. Estimated GFR | LABORATORY | | Interpretive Information: <60 mL/min/1.73 sq m | SERVICES, CORE | | Chronic Kidney Disease <15 mL/min/1.73 sq m | | | Kidney Failure Estimated GFR greater that 60 mL/min/1.73 sq m is of | | | limited clinical value. The MDRD equation is not valid in the | | | following situations: - Patients under 18 years of age - Severe | | | malnutrition or obesity - Vegetarian diet - Rapidly changing kidney | | | function New reference range effective 2012 for Total proteins | | | performed in Core Lab only. | | + + + + + + + + | Performing | Address | City/State/Zipcode | Phone Number | | Organization | | | | + + + + + | [facility] | [address] | [place] [address] | | | SERVICES, [facility] | [address] | | | + + + + + LIPASE, PLASMA (04/10/2013 3:40 AM PDT) + +---------+ + + + | Component | Value | Ref Range | Performed | Pathologist | | | | | At | Signature | + +---------+ + + + | LIPASE | 480 (H) | 152 - 353 U/L | [facility] | | | (LAB) | | | LABORATORY | | | | | | SERVICES, | | | | | | CORE | | + +---------+ + + + + + | Specimen | + + | Blood - Blood | + + + + + + + | Performing | Address | City/State/Zipcode | Phone Number | | Organization | | | | + + + + + | [facility] | [address] | [place] [address] | | | SERVICES, CORE | [address] | | | + + + + + MAGNESIUM, PLASMA (04/10/2013 3:40 AM PDT) + +-------+ + + + | Component | Value | Ref Range | Performed | Pathologist | | | | | At | Signature | + +-------+ + + + | MAGNESIUM,P | 2.2 | 1.8 - 2.5 mg/dL | [facility] | | | [facility] | | | LABORATORY | | | | | | [facility], | | | | | | CORE | | + +-------+ + + + + + | Specimen | + + | Blood - Blood | + + + + + + + | Performing | Address | City/State/Zipcode | Phone Number | | Organization | | | | + + + + + | [facility] | [address] | [place] [address] | | | SERVICES, CORE | [address] | | | + + + + + CAPILLARY BLOOD GLUCOSE (NO CHG), POC (04/09/2013 11:55 PM PDT) + +---------+ + + + | Component | Value | Ref Range | Performed | Pathologist | | | | | At | Signature | + +---------+ + + + | BLOOD | 161 (H) | 60 - 99 mg/dL | [facility] | | | GLUCOSE, | | | [facility] | | | POC | | | [facility] | | | | | | OF CARE | | | | | | TESTS | | + +---------+ + + + + + | Specimen | + + | | + + + + + + + | Performing | Address | City/State/Zipcode | Phone Number | | Organization | | | | + + + + + | [facility] | [address] | [place], [place] | | | [facility] | [facility] | [address] | | | TESTS | | | | + + + + + CAPILLARY BLOOD GLUCOSE (NO CHG) POC (04/09/2013 6:42 PM PDT) + +---------+ + + + | Component | Value | Ref Range | Performed | Pathologist | | | | | At | Signature | + +---------+ + + + | BLOOD | 129 (H) | 60 - 99 mg/dL | [facility] | | | GLUCOSE, | | | [facility] | | | POC | | | [place] [place] | | | | | | OF CARE | | | | | | TESTS | | + +---------+ + + + + + | Specimen | + + | | + + + + + + + | Performing | Address | City/State/Zipcode | Phone Number | | Organization | | | | + + + + + | [facility] | [address] | [place], [place] | | | [facility] | [facility] | [address] | | | TESTS | | | | + + + + + CAPILLARY BLOOD GLUCOSE (NO CHG), POC (04/09/2013 11:56 AM PDT) + +---------+ + + + | Component | Value | Ref Range | Performed | Pathologist | | | | | At | Signature | + +---------+ + + + | BLOOD | 174 (H) | 60 - 99 mg/dL | [facility] - | | | GLUCOSE, | | | [place] | | | POC | | | [facility] | | | | | | OF CARE | | | | | | TESTS | | + +---------+ + + + + + | Specimen | + + | | + + + + + + + | Performing | Address | City/State/Zipcode | Phone Number | | Organization | | | | + + + + + | [facility] | [address] | [place], [place] | | | [facility] | [address] | [address] | | | TESTS | | | | + + + + + CAPILLARY BLOOD GLUCOSE (NO CHG), POC (04/09/2013 6:12 AM PDT) + +---------+ + + + | Component | Value | Ref Range | Performed | Pathologist | | | | | At | Signature | + +---------+ + + + | BLOOD | 161 (H) | 60 - 99 mg/dL | [facility] - | | | GLUCOSE, | | | [facility] | | | POC | | | [facility] | | | | | | OF CARE | | | | | | TESTS | | + +---------+ + + + + + | Specimen | + + | | + + + + + + + | Performing | Address | City/State/Zipcode | Phone Number | | Organization | | | | + + + + + | [facility] | [address] | [place], [place] | | | [facility] [place] | [facility] | [address] | | | TESTS | | | | + + + + + CBC (HEMOGRAM) ONLY (04/09/2013 4:01 AM PDT) + + + + + + | Component | Value | Ref Range | Performed | Pathologist | | | | | At | Signature | + + + + + + | WHITE CELL | 9.62 | 4.40 - 11.00 | [facility] | | | COUNT | | K/cu mm | LABORATORY | | | | | | SERVICES, | | | | | | CORE | | + + + + + + | RED CELL | 3.73 (L) | 4.00 - 5.20 | [facility] | | | COUNT | | M/cu mm | LABORATORY | | | | | | SERVICES, | | | | | | CORE | | + + + + + + | HEMOGLOBIN | 11.1 (L) | 12.0 - 16.0 | [facility] | | | | | g/dL | LABORATORY | | | | | | SERVICES, | | | | | | CORE | | + + + + + + | HEMATOCRIT | 35.9 (L) | 36.0 - 46.0 % | [facility] | | | | | | LABORATORY | | | | | | SERVICES, | | | | | | CORE | | + + + + + + | MCV | 96.2 (H) | 80.0 - 96.0 fL | [facility] | | | | | | LABORATORY | | | | | | SERVICES, | | | | | | CORE | | + + + + + + | MCHC | 30.9 (L) | 33.0 - 35.5 | [facility] | | | | | g/dL | LABORATORY | | | | | | SERVICES, | | | | | | CORE | | + + + + + + | RDW SD | 49.3 (H) | 35.1 - 46.3 fL | [facility] | | | | | | LABORATORY | | | | | | SERVICES, | | | | | | CORE | | + + + + + + | PLATELET | 364 | 150 - 400 K/cu | [facility] | | | COUNT | | mm | LABORATORY | | | | | | SERVICES, | | | | | | CORE | | + + + + + + | MPV | 11.0 | 9.7 - 12.3 fL | [facility] | | | | | | LABORATORY | | | | | | SERVICES, | | | | | | CORE | | + + + + + + | NRBC% | 0.0 | 0.0 - 0.3 % | [facility] | | | | | | LABORATORY | | | | | | SERVICES, | | | | | | CORE | | + + + + + + | NRBC# | 0.00 | 0.00 - 0.02 | [facility] | | | | | K/cu mm | LABORATORY | | | | | | SERVICES, | | | | | | CORE | | + + + + + + + + | Specimen | + + | Blood - Blood | + + + + + | Narrative | Performed At | + + + | New methodology and reference ranges for some CBC/Differential | [facility] | | analytes in effect on 02/27/13. | LABORATORY | | | SERVICES, CORE | + + + + + + + + | Performing | Address | City/State/Zipcode | Phone Number | | Organization | | | | + + + + + | [facility] | [address] | [place] [address] | | | SERVICES, CORE | [address] | | | + + + + + PHOSPHORUS, PLASMA (04/09/2013 4:01 AM PDT) + +-------+ + + + | Component | Value | Ref Range | Performed | Pathologist | | | | | At | Signature | + +-------+ + + + | PHOSPHORUS, | 3.4 | 2.4 - 4.7 mg/dL | [facility] | | | PLASMA | | | LABORATORY | | | (LAB) | | | SERVICES, | | | | | | CORE | | + +-------+ + + + + + | Specimen | + + | Blood - Blood | + + + + + + + | Performing | Address | City/State/Zipcode | Phone Number | | Organization | | | | + + + + + | [facility] | [address] | [place] [address] | | | SERVICES, CORE | [address] | | | + + + + + COMPLETE METABOLIC SET (NA,K,CL,CO2,BUN,CREAT,GLUC,CA,AST,ALT,BILI TOTAL,ALK PHOS,ALB,PROT TOTAL) (04/09/2013 4:01 AM PDT) + +---------+ + + + | Component | Value | Ref Range | Performed | Pathologist | | | | | At | Signature | + +---------+ + + + | GLUCOSE, | 119 (H) | 60 - 99 mg/dL | [facility] | | | PLASMA | | | LABORATORY | | | (LAB) | | | SERVICES, | | | | | | CORE | | + +---------+ + + + | BUN, PLASMA | 55 (H) | 6 - 20 mg/dL | [facility] | | | (LAB) | | | LABORATORY | | | | | | SERVICES, | | | | | | CORE | | + +---------+ + + + | CREATININE | 0.65 | 0.60 - 1.10 | [facility] | | | PLASMA | | mg/dL | LABORATORY | | | (LAB) | | | SERVICES, | | | | | | CORE | | + +---------+ + + + | EGFR | >60 | >60 mL/min | [facility] | | | - | | | LABORATORY | | | [place] | | | SERVICES, | | | | | | CORE | | + +---------+ + + + | EGFR NON | >60 | >60 mL/min | [facility] | | | -[facility] | | | LABORATORY | | | [facility] | | | SERVICES, | | | | | | CORE | | + +---------+ + + + | SODIUM, | 144 | 136 - 145 | [facility] | | | PLASMA | | mmol/L | LABORATORY | | | (LAB) | | | SERVICES, | | | | | | CORE | | + +---------+ + + + | POTASSIUM, | 4.1 | 3.4 - 5.0 | [facility] | | | PLASMA | | mmol/L | LABORATORY | | | (LAB) | | | SERVICES, | | | | | | CORE | | + +---------+ + + + | CHLORIDE, | 110 (H) | 97 - 108 mmol/L | [facility] | | | PLASMA | | | LABORATORY | | | (LAB) | | | SERVICES, | | | | | | CORE | | + +---------+ + + + | TOTAL CO2, | 27 | 21 - 32 mmol/L | [facility] | | | PLASMA | | | LABORATORY | | | (LAB) | | | SERVICES, | | | | | | CORE | | + +---------+ + + + | CALCIUM, | 9.4 | 8.6 - 10.2 | [facility] | | | PLASMA | | mg/dL | LABORATORY | | | (LAB) | | | SERVICES, | | | | | | CORE | | + +---------+ + + + | BILIRUBIN | 0.3 | 0.3 - 1.2 mg/dL | [facility] | | | TOTAL | | | LABORATORY | | | | | | SERVICES, | | | | | | CORE | | + +---------+ + + + | TOTAL | 7.0 | 6.4 - 8.2 g/dL | [facility] | | | PROTEIN, | | | LABORATORY | | | PLASMA | | | SERVICES, | | | (LAB) | | | CORE | | + +---------+ + + + | ALBUMIN, | 3.1 (L) | 3.5 - 4.7 g/dL | [facility] | | | PLASMA | | | LABORATORY | | | (LAB) | | | SERVICES, | | | | | | CORE | | + +---------+ + + + | ALK PHOS | 79 | 53 - 141 U/L | [facility] | | | | | | LABORATORY | | | | | | SERVICES, | | | | | | CORE | | + +---------+ + + + | AST(SGOT) | 23 | 15 - 41 U/L | [facility] | | | | | | LABORATORY | | | | | | SERVICES, | | | | | | CORE | | + +---------+ + + + | ALT (SGPT) | 15 | 12 - 60 U/L | [facility] | | | | | | LABORATORY | | | | | | SERVICES, | | | | | | CORE | | + +---------+ + + + | ANION | 9 | 4 - 11 mmol/L | [facility] | | | GAP(ALB | | | LABORATORY | | | CORRECTED) | | | SERVICES, | | | | | | CORE | | + +---------+ + + + | POTASSIUM | No Hemo | | [facility] | | | CMNT | | | LABORATORY | | | | | | SERVICES, | | | | | | CORE | | + +---------+ + + + | BILI T CMNT | No Hemo | | [facility] | | | | | | LABORATORY | | | | | | SERVICES, | | | | | | CORE | | + +---------+ + + + | AST CMNT | No Hemo | | [facility] | | | | | | LABORATORY | | | | | | SERVICES, | | | | | | CORE | | + +---------+ + + + | ANION GAP | 7 | mmol/L | [facility] | | | | | | LABORATORY | | | | | | SERVICES, | | | | | | CORE | | + +---------+ + + + + + | Specimen | + + | Blood - Blood | + + + + + | Narrative | Performed At | + + + | New reference range effective 2012 for Total proteins | [facility] | | performed in Core Lab only. GFR is estimated using the MDRD equation | LABORATORY | | recommended by the National Kidney Disease Education Program. | SERVICES, CORE | | Estimated GFR Interpretive Information: <60 mL/min/1.73 sq m | | | Chronic Kidney Disease <15 mL/min/1.73 sq m | | | Kidney Failure Estimated GFR greater that 60 mL/min/1.73 sq | | | m is of limited clinical value. The MDRD equation is not valid in | | | the following situations: - Patients under 18 years of age - Severe | | | malnutrition or obesity - Vegetarian diet - Rapidly changing kidney | | | function | | + + + + + + + + | Performing | Address | City/State/Zipcode | Phone Number | | Organization | | | | + + + + + | [facility] | [address] | [place] [address] | | | SERVICES, CORE | [address] | | | + + + + + LIPASE, PLASMA (04/09/2013 4:01 AM PDT) + +---------+ + + + | Component | Value | Ref Range | Performed | Pathologist | | | | | At | Signature | + +---------+ + + + | LIPASE | 469 (H) | 152 - 353 U/L | [facility] | | | (LAB) | | | LABORATORY | | | | | | SERVICES, | | | | | | CORE | | + +---------+ + + + + + | Specimen | + + | Blood - Blood | + + + + + + + | Performing | Address | City/State/Zipcode | Phone Number | | Organization | | | | + + + + + | [facility] | [address] | [place] [address] | | | SERVICES, CORE | [address] | | | + + + + + MAGNESIUM, PLASMA (04/09/2013 4:01 AM PDT) + +-------+ + + + | Component | Value | Ref Range | Performed | Pathologist | | | | | At | Signature | + +-------+ + + + | MAGNESIUM,P | 2.3 | 1.8 - 2.5 mg/dL | [facility] | | | LASMA | | | LABORATORY | | | | | | SERVICES, | | | | | | CORE | | + +-------+ + + + + + | Specimen | + + | Blood - Blood | + + + + + + + | Performing | Address | City/State/Zipcode | Phone Number | | Organization | | | | + + + + + | [facility] | [address] | [place] [address] | | | SERVICES, CORE | [address] | | | + + + + + CAPILLARY BLOOD GLUCOSE (NO CHG), POC (04/08/2013 11:39 PM PDT) + +---------+ + + + | Component | Value | Ref Range | Performed | Pathologist | | | | | At | Signature | + +---------+ + + + | BLOOD | 140 (H) | 60 - 99 mg/dL | [facility] - | | | GLUCOSE, | | | [facility] | | | POC | | | [facility] | | | | | | OF CARE | | | | | | TESTS | | + +---------+ + + + + + | Specimen | + + | | + + + + + + + | Performing | Address | City/State/Zipcode | Phone Number | | Organization | | | | + + + + + | [facility] | [address] | [place], [place] | | | [facility] | [address] | [address] | | | TESTS | | | | + + + + + CAPILLARY BLOOD GLUCOSE (NO CHG), POC (04/08/2013 6:11 PM PDT) + +---------+ + + + | Component | Value | Ref Range | Performed | Pathologist | | | | | At | Signature | + +---------+ + + + | BLOOD | 145 (H) | 60 - 99 mg/dL | [facility] - | | | GLUCOSE, | | | [facility] | | | POC | | | [facility] | | | | | | OF CARE | | | | | | TESTS | | + +---------+ + + + + + | Specimen | + + | | + + + + + + + | Performing | Address | City/State/Zipcode | Phone Number | | Organization | | | | + + + + + | [facility] | [address] | [place], [place] | | | [facility] | [address] | [address] | | | TESTS | | | | + + + + + CAPILLARY BLOOD GLUCOSE (NO CHG), POC (04/08/2013 12:28 PM PDT) + +---------+ + + + | Component | Value | Ref Range | Performed | Pathologist | | | | | At | Signature | + +---------+ + + + | BLOOD | 146 (H) | 60 - 99 mg/dL | [facility] | | | GLUCOSE, | | | [facility] | | | POC | | | [facility] | | | | | | OF CARE | | | | | | TESTS | | + +---------+ + + + + + | Specimen | + + | | + + + + + + + | Performing | Address | City/State/Zipcode | Phone Number | | Organization | | | | + + + + + | [facility] | [address] | [place], [place] | | | [facility] | [address] | [address] | | | TESTS | | | | + + + + + X-RAY ABD LTD FEEDING TUBE EVAL PORTABLE (04/08/2013 11:41 AM PDT) + + + + + + | Component | Value | Ref Range | Performed | Pathologist | | | | | At | Signature | + + + + + + | X-RAY ABD | HISTORY: Tube placement. | | | | | LTD FEEDING | COMPARISON: [facility] | | | | | TUBE EVAL | performed 10:06 a.m. | | | | | PORTABLE | earlier the same day. | | | | | | IMPRESSION: The tip of | | | | | | the feeding tube is in | | | | | | the ascending duodenum. | | | | | | Attending Radiologists: | | | | | | ANDREA CALLAWAY, | | | | | | MDAuthor: ANDREA Mc | | | | | | MD CESIA I have | | | | | | personally viewed this | | | | | | procedure/exam, reviewed | | | | | | this report, and | | | | | | madechanges to it where | | | | | | appropriate. | | | | | | Final/Electronically | | | | | | signed / ANDREA Alvarado | | | | | CESIA 04/08/2013 16:05 | | | | | | PM | | | | + + + + + + + + | Specimen | + + | | + + + +---------+ + + | Performing | Address | City/State/Zipcode | Phone Number | | Organization | | | | + +---------+ + + | [facility] | | | | [facility] | | | | + +---------+ + + X-RAY ABD LTD FEEDING TUBE EVAL (04/08/2013 10:07 AM PDT) + + + + + + | Component | Value | Ref Range | Performed | Pathologist | | | | | At | Signature | + + + + + + | ABD LTD | HISTORY: Feeding tube | | | | | FEEDING | placement. COMPARISON: | | | | | TUBE EVAL | KUB of 04/03/13. | | | | | | IMPRESSION: Single | | | | | | frontal view of the | | | | | | abdomen obtained. The | | | | | | tip of the feeding | | | | | | tubeappears to be in the | | | | | | descending duodenum. | | | | | | Attending Radiologists: | | | | | | ANDREA CALLAWAY, | | | | | | MDAuthor: ANDREA Mc | | | | | | MD CESIA I have | | | | | | personally viewed this | | | | | | procedure/exam, reviewed | | | | | | this report, and | | | | | | madechanges to it where | | | | | | appropriate. | | | | | | Final/Electronically | | | | | | signed / ANDREA Mc | | | | | | CESIA 04/08/2013 10:39 | | | | | | AM | | | | + + + + + + + + | Specimen | + + | | + + + +---------+ + + | Performing | Address | City/State/Zipcode | Phone Number | | Organization | | | | + +---------+ + + | [facility] | | | | | [facility]IOLOGY | | | | + +---------+ + + CAPILLARY BLOOD GLUCOSE (NO CHG), POC (04/08/2013 6:10 AM PDT) + +---------+ + + + | Component | Value | Ref Range | Performed | Pathologist | | | | | At | Signature | + +---------+ + + + | BLOOD | 132 (H) | 60 - 99 mg/dL | [facility] - | | | GLUCOSE, | | | [facility] | | | POC | | | [facility] | | | | | | OF CARE | | | | | | TESTS | | + +---------+ + + + + + | Specimen | + + | | + + + + + + + | Performing | Address | City/State/Zipcode | Phone Number | | Organization | | | | + + + + + | [facility] | [address] | [place], [place] | | | [facility] | [facility] | [address] | | | TESTS | | | | + + + + + CBC (HEMOGRAM) ONLY (04/08/2013 5:20 AM PDT) + + + + + + | Component | Value | Ref Range | Performed | Pathologist | | | | | At | Signature | + + + + + + | WHITE CELL | 7.46 | 4.40 - 11.00 | [facility] | | | COUNT | | K/cu mm | LABORATORY | | | | | | SERVICES, | | | | | | CORE | | + + + + + + | RED CELL | 3.76 (L) | 4.00 - 5.20 | [facility] | | | COUNT | | M/cu mm | LABORATORY | | | | | | SERVICES, | | | | | | CORE | | + + + + + + | HEMOGLOBIN | 11.4 (L) | 12.0 - 16.0 | [facility] | | | | | g/dL | LABORATORY | | | | | | SERVICES, | | | | | | CORE | | + + + + + + | HEMATOCRIT | 36.1 | 36.0 - 46.0 % | [facility] | | | | | | LABORATORY | | | | | | SERVICES, | | | | | | CORE | | + + + + + + | MCV | 96.0 | 80.0 - 96.0 fL | [facility] | | | | | | LABORATORY | | | | | | SERVICES, | | | | | | CORE | | + + + + + + | MCHC | 31.6 (L) | 33.0 - 35.5 | [facility] | | | | | g/dL | LABORATORY | | | | | | SERVICES, | | | | | | CORE | | + + + + + + | RDW SD | 49.5 (H) | 35.1 - 46.3 fL | [facility] | | | | | | LABORATORY | | | | | | SERVICES, | | | | | | CORE | | + + + + + + | PLATELET | 373 | 150 - 400 K/cu | [facility] | | | COUNT | | mm | LABORATORY | | | | | | SERVICES, | | | | | | CORE | | + + + + + + | MPV | 10.3 | 9.7 - 12.3 fL | [facility] | | | | | | LABORATORY | | | | | | SERVICES, | | | | | | CORE | | + + + + + + | NRBC% | 0.0 | 0.0 - 0.3 % | [facility] | | | | | | LABORATORY | | | | | | SERVICES, | | | | | | CORE | | + + + + + + | NRBC# | 0.00 | 0.00 - 0.02 | [facility] | | | | | K/cu mm | LABORATORY | | | | | | SERVICES, | | | | | | CORE | | + + + + + + + + | Specimen | + + | Blood - Blood | + + + + + | Narrative | Performed At | + + + | New methodology and reference ranges for some CBC/Differential | [facility] | | analytes in effect on 02/27/13. | LABORATORY | | | SERVICES, [place] | + + + + + + + + | Performing | Address | City/State/Zipcode | Phone Number | | Organization | | | | + + + + + | [facility] | [address] [facility] | [place] [address] | | | SERVICES, [place] | [address] | | | + + + + + PHOSPHORUS, PLASMA (04/08/2013 5:20 AM PDT) + +-------+ + + + | Component | Value | Ref Range | Performed | Pathologist | | | | | At | Signature | + +-------+ + + + | PHOSPHORUS, | 4.1 | 2.4 - 4.7 mg/dL | [facility] | | | PLASMA | | | LABORATORY | | | (LAB) | | | SERVICES, | | | | | | CORE | | + +-------+ + + + + + | Specimen | + + | Blood - Blood | + + + + + + + | Performing | Address | City/State/Zipcode | Phone Number | | Organization | | | | + + + + + | [facility] | [address] | [place] [address] | | | SERVICES, CORE | [address] | | | + + + + + COMPLETE METABOLIC SET (NA,K,CL,CO2,BUN,CREAT,GLUC,CA,AST,ALT,BILI TOTAL,ALK PHOS,ALB,PROT TOTAL) (04/08/2013 5:20 AM PDT) + +---------+ + + + | Component | Value | Ref Range | Performed | Pathologist | | | | | At | Signature | + +---------+ + + + | GLUCOSE, | 116 (H) | 60 - 99 mg/dL | [facility] | | | PLASMA | | | LABORATORY | | | (LAB) | | | SERVICES, | | | | | | CORE | | + +---------+ + + + | BUN, PLASMA | 52 (H) | 6 - 20 mg/dL | [facility] | | | (LAB) | | | LABORATORY | | | | | | SERVICES, | | | | | | CORE | | + +---------+ + + + | CREATININE | 0.74 | 0.60 - 1.10 | [facility] | | | PLASMA | | mg/dL | LABORATORY | | | (LAB) | | | SERVICES, | | | | | | CORE | | + +---------+ + + + | EGFR | >60 | >60 mL/min | [facility] | | | - | | | LABORATORY | | | [facility] | | | SERVICES, | | | | | | CORE | | + +---------+ + + + | EGFR NON | >60 | >60 mL/min | [facility] | | | -[facility] | | | LABORATORY | | | [facility] | | | SERVICES, | | | | | | CORE | | + +---------+ + + + | SODIUM, | 142 | 136 - 145 | [facility] | | | PLASMA | | mmol/L | LABORATORY | | | (LAB) | | | SERVICES, | | | | | | CORE | | + +---------+ + + + | POTASSIUM, | 4.2 | 3.4 - 5.0 | [facility] | | | PLASMA | | mmol/L | LABORATORY | | | (LAB) | | | SERVICES, | | | | | | CORE | | + +---------+ + + + | CHLORIDE, | 106 | 97 - 108 mmol/L | [facility] | | | PLASMA | | | LABORATORY | | | (LAB) | | | SERVICES, | | | | | | CORE | | + +---------+ + + + | TOTAL CO2, | 26 | 21 - 32 mmol/L | [facility] | | | PLASMA | | | LABORATORY | | | (LAB) | | | SERVICES, | | | | | | CORE | | + +---------+ + + + | CALCIUM, | 9.3 | 8.6 - 10.2 | [facility] | | | PLASMA | | mg/dL | LABORATORY | | | (LAB) | | | SERVICES, | | | | | | CORE | | + +---------+ + + + | BILIRUBIN | 0.5 | 0.3 - 1.2 mg/dL | [facility] | | | TOTAL | | | LABORATORY | | | | | | SERVICES, | | | | | | CORE | | + +---------+ + + + | TOTAL | 7.8 | 6.4 - 8.2 g/dL | [facility] | | | PROTEIN, | | | LABORATORY | | | PLASMA | | | SERVICES, | | | (LAB) | | | CORE | | + +---------+ + + + | ALBUMIN, | 3.3 (L) | 3.5 - 4.7 g/dL | [facility] | | | PLASMA | | | LABORATORY | | | (LAB) | | | SERVICES, | | | | | | CORE | | + +---------+ + + + | ALK PHOS | 80 | 53 - 141 U/L | [facility] | | | | | | LABORATORY | | | | | | SERVICES, | | | | | | CORE | | + +---------+ + + + | AST(SGOT) | 24 | 15 - 41 U/L | [facility] | | | | | | LABORATORY | | | | | | SERVICES, | | | | | | CORE | | + +---------+ + + + | ALT (SGPT) | 16 | 12 - 60 U/L | [facility] | | | | | | LABORATORY | | | | | | SERVICES, | | | | | | CORE | | + +---------+ + + + | ANION | 11 | 4 - 11 mmol/L | [facility] | | | GAP(ALB | | | LABORATORY | | | CORRECTED) | | | SERVICES, | | | | | | CORE | | + +---------+ + + + | POTASSIUM | No Hemo | | [facility] | | | CMNT | | | LABORATORY | | | | | | SERVICES, | | | | | | CORE | | + +---------+ + + + | BILI T CMNT | No Hemo | | [facility] | | | | | | LABORATORY | | | | | | SERVICES, | | | | | | CORE | | + +---------+ + + + | AST CMNT | No Hemo | | [facility] | | | | | | LABORATORY | | | | | | SERVICES, | | | | | | CORE | | + +---------+ + + + | ANION GAP | 10 | mmol/L | [facility] | | | | | | LABORATORY | | | | | | SERVICES, | | | | | | CORE | | + +---------+ + + + + + | Specimen | + + | Blood - Blood | + + + + + | Narrative | Performed At | + + + | GFR is estimated using the MDRD equation recommended by the | [facility] | | National Kidney Disease Education Program. Estimated GFR | LABORATORY | | Interpretive Information: <60 mL/min/1.73 sq m | SERVICES, CORE | | Chronic Kidney Disease <15 mL/min/1.73 sq m | | | Kidney Failure Estimated GFR greater that 60 mL/min/1.73 sq m is of | | | limited clinical value. The MDRD equation is not valid in the | | | following situations: - Patients under 18 years of age - Severe | | | malnutrition or obesity - Vegetarian diet - Rapidly changing kidney | | | function New reference range effective 2012 for Total proteins | | | performed in Core Lab only. | | + + + + + + + + | Performing | Address | City/State/Zipcode | Phone Number | | Organization | | | | + + + + + | [facility] | [address] | [place] [address] | | | SERVICES, [facility] | [address] | | | + + + + + LIPASE, PLASMA (04/08/2013 5:20 AM PDT) + +---------+ + + + | Component | Value | Ref Range | Performed | Pathologist | | | | | At | Signature | + +---------+ + + + | LIPASE | 631 (H) | 152 - 353 U/L | [facility] | | | (LAB) | | | LABORATORY | | | | | | SERVICES, | | | | | | CORE | | + +---------+ + + + + + | Specimen | + + | Blood - Blood | + + + + + + + | Performing | Address | City/State/Zipcode | Phone Number | | Organization | | | | + + + + + | [facility] | [address] | [place] [address] | | | SERVICES, CORE | [address] | | | + + + + + MAGNESIUM, PLASMA (04/08/2013 5:20 AM PDT) + +-------+ + + + | Component | Value | Ref Range | Performed | Pathologist | | | | | At | Signature | + +-------+ + + + | MAGNESIUM,P | 2.4 | 1.8 - 2.5 mg/dL | [facility] | | | LASMA | | | LABORATORY | | | | | | SERVICES, | | | | | | CORE | | + +-------+ + + + + + | Specimen | + + | Blood - Blood | + + + + + + + | Performing | Address | City/State/Zipcode | Phone Number | | Organization | | | | + + + + + | [facility] | [address] | [place] [address] | | | SERVICES, CORE | [address] | | | + + + + + CAPILLARY BLOOD GLUCOSE (NO CHG), POC (04/08/2013 12:27 AM PDT) + +---------+ + + + | Component | Value | Ref Range | Performed | Pathologist | | | | | At | Signature | + +---------+ + + + | BLOOD | 143 (H) | 60 - 99 mg/dL | [facility] | | | GLUCOSE, | | | [facility] | | | POC | | | [facility] | | | | | | OF CARE | | | | | | TESTS | | + +---------+ + + + + + | Specimen | + + | | + + + + + + + | Performing | Address | City/State/Zipcode | Phone Number | | Organization | | | | + + + + + | [facility] | [address] | [place], [place] | | | [facility] | [address] | [address] | | | TESTS | | | | + + + + + CAPILLARY BLOOD GLUCOSE (NO CHG), POC (04/07/2013 9:49 PM PDT) + +---------+ + + + | Component | Value | Ref Range | Performed | Pathologist | | | | | At | Signature | + +---------+ + + + | BLOOD | 115 (H) | 60 - 99 mg/dL | [facility] | | | GLUCOSE, | | | [facility] | | | POC | | | [facility] | | | | | | OF CARE | | | | | | TESTS | | + +---------+ + + + + + | Specimen | + + | | + + + + + + + | Performing | Address | City/State/Zipcode | Phone Number | | Organization | | | | + + + + + | [facility] | [address] | [place], [place] | | | [facility] | [address] | [address] | | | TESTS | | | | + + + + + CAPILLARY BLOOD GLUCOSE (NO CHG), POC (04/07/2013 8:18 PM PDT) + +---------+ + + + | Component | Value | Ref Range | Performed | Pathologist | | | | | At | Signature | + +---------+ + + + | BLOOD | 151 (H) | 60 - 99 mg/dL | [facility] - | | | GLUCOSE, | | | [facility] | | | POC | | | [facility] | | | | | | OF CARE | | | | | | TESTS | | + +---------+ + + + + + | Specimen | + + | | + + + + + + + | Performing | Address | City/State/Zipcode | Phone Number | | Organization | | | | + + + + + | [facility] | [address] | [place], [place] | | | [facility] | [address] | [address] | | | TESTS | | | | + + + + + CAPILLARY BLOOD GLUCOSE (NO CHG), POC (04/07/2013 11:33 AM PDT) + +---------+ + + + | Component | Value | Ref Range | Performed | Pathologist | | | | | At | Signature | + +---------+ + + + | BLOOD | 133 (H) | 60 - 99 mg/dL | [facility] - | | | GLUCOSE, | | | [facility] | | | POC | | | [facility] | | | | | | OF CARE | | | | | | TESTS | | + +---------+ + + + + + | Specimen | + + | | + + + + + + + | Performing | Address | City/State/Zipcode | Phone Number | | Organization | | | | + + + + + | [facility] | [address] | [place], [place] | | | [facility] | [address] | [address] | | | TESTS | | | | + + + + + CAPILLARY BLOOD GLUCOSE (NO CHG), POC (04/07/2013 5:58 AM PDT) + +---------+ + + + | Component | Value | Ref Range | Performed | Pathologist | | | | | At | Signature | + +---------+ + + + | BLOOD | 139 (H) | 60 - 99 mg/dL | [facility] - | | | GLUCOSE, | | | [facility] | | | POC | | | [facility] | | | | | | OF CARE | | | | | | TESTS | | + +---------+ + + + + + | Specimen | + + | | + + + + + + + | Performing | Address | City/State/Zipcode | Phone Number | | Organization | | | | + + + + + | [facility] | [address] | [place], [place] | | | [facility] | [address] | [address] | | | TESTS | | | | + + + + + CBC (HEMOGRAM) ONLY (04/07/2013 3:27 AM PDT) + + + + + + | Component | Value | Ref Range | Performed | Pathologist | | | | | At | Signature | + + + + + + | WHITE CELL | 6.60 | 4.40 - 11.00 | [facility] | | | COUNT | | K/cu mm | LABORATORY | | | | | | SERVICES, | | | | | | CORE | | + + + + + + | RED CELL | 3.67 (L) | 4.00 - 5.20 | [facility] | | | COUNT | | M/cu mm | LABORATORY | | | | | | SERVICES, | | | | | | CORE | | + + + + + + | HEMOGLOBIN | 11.2 (L) | 12.0 - 16.0 | [facility] | | | | | g/dL | LABORATORY | | | | | | SERVICES, | | | | | | CORE | | + + + + + + | HEMATOCRIT | 34.9 (L) | 36.0 - 46.0 % | [facility] | | | | | | LABORATORY | | | | | | SERVICES, | | | | | | CORE | | + + + + + + | MCV | 95.1 | 80.0 - 96.0 fL | [facility] | | | | | | LABORATORY | | | | | | SERVICES, | | | | | | CORE | | + + + + + + | MCHC | 32.1 (L) | 33.0 - 35.5 | [facility] | | | | | g/dL | LABORATORY | | | | | | SERVICES, | | | | | | CORE | | + + + + + + | RDW SD | 48.1 (H) | 35.1 - 46.3 fL | [facility] | | | | | | LABORATORY | | | | | | SERVICES, | | | | | | CORE | | + + + + + + | PLATELET | 376 | 150 - 400 K/cu | [facility] | | | COUNT | | mm | LABORATORY | | | | | | SERVICES, | | | | | | CORE | | + + + + + + | MPV | 10.3 | 9.7 - 12.3 fL | [facility] | | | | | | LABORATORY | | | | | | SERVICES, | | | | | | CORE | | + + + + + + | NRBC% | 0.0 | 0.0 - 0.3 % | [facility] | | | | | | LABORATORY | | | | | | SERVICES, | | | | | | CORE | | + + + + + + | NRBC# | 0.00 | 0.00 - 0.02 | [facility] | | | | | K/cu mm | LABORATORY | | | | | | SERVICES, | | | | | | CORE | | + + + + + + + + | Specimen | + + | Blood - Blood | + + + + + | Narrative | Performed At | + + + | New methodology and reference ranges for some CBC/Differential | [facility] | | analytes in effect on 02/27/13. | LABORATORY | | | SERVICES, CORE | + + + + + + + + | Performing | Address | City/State/Zipcode | Phone Number | | Organization | | | | + + + + + | [facility] | [address] | [place] [address] | | | SERVICES, CORE | [address] | | | + + + + + PHOSPHORUS, PLASMA (04/07/2013 3:27 AM PDT) + +-------+ + + + | Component | Value | Ref Range | Performed | Pathologist | | | | | At | Signature | + +-------+ + + + | PHOSPHORUS, | 3.1 | 2.4 - 4.7 mg/dL | [facility] | | | PLASMA | | | LABORATORY | | | (LAB) | | | SERVICES, | | | | | | CORE | | + +-------+ + + + + + | Specimen | + + | Blood - Blood | + + + + + + + | Performing | Address | City/State/Zipcode | Phone Number | | Organization | | | | + + + + + | [facility] | [address] | [place] [address] | | | SERVICES, CORE | [address] | | | + + + + + COMPLETE METABOLIC SET (NA,K,CL,CO2,BUN,CREAT,GLUC,CA,AST,ALT,BILI TOTAL,ALK PHOS,ALB,PROT TOTAL) (04/07/2013 3:27 AM PDT) + + + + + + | Component | Value | Ref Range | Performed | Pathologist | | | | | At | Signature | + + + + + + | GLUCOSE, | 116 (H) | 60 - 99 mg/dL | [facility] | | | PLASMA | | | LABORATORY | | | (LAB) | | | SERVICES, | | | | | | CORE | | + + + + + + | BUN, PLASMA | 41 (H) | 6 - 20 mg/dL | [facility] | | | (LAB) | | | LABORATORY | | | | | | SERVICES, | | | | | | CORE | | + + + + + + | CREATININE | 0.59 (L) | 0.60 - 1.10 | [facility] | | | PLASMA | | mg/dL | LABORATORY | | | (LAB) | | | SERVICES, | | | | | | CORE | | + + + + + + | EGFR | >60 | >60 mL/min | [facility] | | | - | | | LABORATORY | | | [place] [facility] | | | SERVICES, | | | | | | CORE | | + + + + + + | EGFR NON | >60 | >60 mL/min | [facility] | | | -[facility] | | | LABORATORY | | | [facility] | | | SERVICES, | | | | | | CORE | | + + + + + + | SODIUM, | 137 | 136 - 145 | [facility] | | | PLASMA | | mmol/L | LABORATORY | | | (LAB) | | | SERVICES, | | | | | | CORE | | + + + + + + | POTASSIUM, | 4.2 | 3.4 - 5.0 | [facility] | | | PLASMA | | mmol/L | LABORATORY | | | (LAB) | | | SERVICES, | | | | | | CORE | | + + + + + + | CHLORIDE, | 104 | 97 - 108 mmol/L | [facility] | | | PLASMA | | | LABORATORY | | | (LAB) | | | SERVICES, | | | | | | CORE | | + + + + + + | TOTAL CO2, | 26 | 21 - 32 mmol/L | [facility] | | | PLASMA | | | LABORATORY | | | (LAB) | | | SERVICES, | | | | | | CORE | | + + + + + + | CALCIUM, | 8.6 | 8.6 - 10.2 | [facility] | | | PLASMA | | mg/dL | LABORATORY | | | (LAB) | | | SERVICES, | | | | | | CORE | | + + + + + + | BILIRUBIN | 0.4 | 0.3 - 1.2 mg/dL | [facility] | | | TOTAL | | | LABORATORY | | | | | | SERVICES, | | | | | | CORE | | + + + + + + | TOTAL | 6.8 | 6.4 - 8.2 g/dL | [facility] | | | PROTEIN, | | | LABORATORY | | | PLASMA | | | SERVICES, | | | (LAB) | | | CORE | | + + + + + + | ALBUMIN, | 3.0 (L) | 3.5 - 4.7 g/dL | [facility] | | | PLASMA | | | LABORATORY | | | (LAB) | | | SERVICES, | | | | | | CORE | | + + + + + + | ALK PHOS | 72 | 53 - 141 U/L | [facility] | | | | | | LABORATORY | | | | | | SERVICES, | | | | | | CORE | | + + + + + + | AST(SGOT) | 25 | 15 - 41 U/L | [facility] | | | | | | LABORATORY | | | | | | SERVICES, | | | | | | CORE | | + + + + + + | ALT (SGPT) | 16 | 12 - 60 U/L | [facility] | | | | | | LABORATORY | | | | | | SERVICES, | | | | | | CORE | | + + + + + + | ANION | 9 | 4 - 11 mmol/L | [facility] | | | GAP(ALB | | | LABORATORY | | | CORRECTED) | | | SERVICES, | | | | | | CORE | | + + + + + + | POTASSIUM | No Hemo | | [facility] | | | CMNT | | | LABORATORY | | | | | | SERVICES, | | | | | | CORE | | + + + + + + | BILI T CMNT | No Hemo | | [facility] | | | | | | LABORATORY | | | | | | SERVICES, | | | | | | CORE | | + + + + + + | AST CMNT | No Hemo | | [facility] | | | | | | LABORATORY | | | | | | SERVICES, | | | | | | CORE | | + + + + + + | ANION GAP | 7 | mmol/L | [facility] | | | | | | LABORATORY | | | | | | SERVICES, | | | | | | CORE | | + + + + + + + + | Specimen | + + | Blood - Blood | + + + + + | Narrative | Performed At | + + + | GFR is estimated using the MDRD equation recommended by the | [facility] | | National Kidney Disease Education Program. Estimated GFR | LABORATORY | | Interpretive Information: <60 mL/min/1.73 sq m | SERVICES, CORE | | Chronic Kidney Disease <15 mL/min/1.73 sq m | | | Kidney Failure Estimated GFR greater that 60 mL/min/1.73 sq m is of | | | limited clinical value. The MDRD equation is not valid in the | | | following situations: - Patients under 18 years of age - Severe | | | malnutrition or obesity - Vegetarian diet - Rapidly changing kidney | | | function New reference range effective 2012 for Total proteins | | | performed in Core Lab only. | | + + + + + + + + | Performing | Address | City/State/Zipcode | Phone Number | | Organization | | | | + + + + + | [facility] | [address] | [place] [address] | | | [facility] [place] [facility] | [address] | | | + + + + + LIPASE, PLASMA (04/07/2013 3:27 AM PDT) + +---------+ + + + | Component | Value | Ref Range | Performed | Pathologist | | | | | At | Signature | + +---------+ + + + | LIPASE | 653 (H) | 152 - 353 U/L | [facility] | | | (LAB) | | | LABORATORY | | | | | | SERVICES, | | | | | | CORE | | + +---------+ + + + + + | Specimen | + + | Blood - Blood | + + + + + + + | Performing | Address | City/State/Zipcode | Phone Number | | Organization | | | | + + + + + | [facility] | [address] | [place] [address] | | | SERVICES, CORE | [address] | | | + + + + + MAGNESIUM, PLASMA (04/07/2013 3:27 AM PDT) + +-------+ + + + | Component | Value | Ref Range | Performed | Pathologist | | | | | At | Signature | + +-------+ + + + | MAGNESIUM,P | 2.2 | 1.8 - 2.5 mg/dL | [facility] | | | [facility] | | | LABORATORY | | | | | | SERVICES, | | | | | | CORE | | + +-------+ + + + + + | Specimen | + + | Blood - Blood | + + + + + + + | Performing | Address | City/State/Zipcode | Phone Number | | Organization | | | | + + + + + | [facility] | [address] | [place] [address] | | | SERVICES, CORE | [address] | | | + + + + + CAPILLARY BLOOD GLUCOSE (NO CHG), POC (04/07/2013 12:04 AM PDT) + +---------+ + + + | Component | Value | Ref Range | Performed | Pathologist | | | | | At | Signature | + +---------+ + + + | BLOOD | 132 (H) | 60 - 99 mg/dL | [facility] - | | | GLUCOSE, | | | [facility] | | | POC | | | [facility] | | | | | | OF CARE | | | | | | TESTS | | + +---------+ + + + + + | Specimen | + + | | + + + + + + + | Performing | Address | City/State/Zipcode | Phone Number | | Organization | | | | + + + + + | [facility] | [address] | [place], [place] | | | [facility] [place] | [address] | [phone] | | | TESTS | | | | + + + + + CAPILLARY BLOOD GLUCOSE (NO CHG), POC (04/06/2013 6:37 PM PDT) + +---------+ + + + | Component | Value | Ref Range | Performed | Pathologist | | | | | At | Signature | + +---------+ + + + | BLOOD | 135 (H) | 60 - 99 mg/dL | [facility] - | | | GLUCOSE, | | | [facility] | | | POC | | | [place] [place] | | | | | | OF CARE | | | | | | TESTS | | + +---------+ + + + + + | Specimen | + + | | + + + + + + + | Performing | Address | City/State/Zipcode | Phone Number | | Organization | | | | + + + + + | [facility] | [address] | [place], [place] | | | [facility] [place] | [facility] | [phone] | | | TESTS | | | | + + + + + CAPILLARY BLOOD GLUCOSE (NO CHG), POC (04/06/2013 12:30 PM PDT) + +---------+ + + + | Component | Value | Ref Range | Performed | Pathologist | | | | | At | Signature | + +---------+ + + + | BLOOD | 164 (H) | 60 - 99 mg/dL | [facility] - | | | GLUCOSE, | | | [facility] | | | POC | | | [facility] | | | | | | OF CARE | | | | | | TESTS | | + +---------+ + + + + + | Specimen | + + | | + + + + + + + | Performing | Address | City/State/Zipcode | Phone Number | | Organization | | | | + + + + + | [facility] | [address] | [place], [place] | | | [facility] | [address] | [address] | | | TESTS | | | | + + + + + X-RAY CHEST 1 VIEW (04/06/2013 9:56 AM PDT) + + + + + + | Component | Value | Ref Range | Performed | Pathologist | | | | | At | Signature | + + + + + + | CHEST, 1 | EXAM: CHEST 1 VIEW | | | | | VIEW | 04/06/13 09:56:00 | | | | | | HISTORY: Respiratory | | | | | | distress COMPARISON: | | | | | | 03/31/13 FINDINGS: Right | | | | | | internal jugular central | | | | | | line is unchanged. NG | | | | | | tube has beenremoved | | | | | | and a feeding tube | | | | | | placed. Heart is | | | | | | normal in size. There | | | | | | is nopulmonary edema nor | | | | | | developing | | | | | | consolidation. | | | | | | Dependent atelectasis | | | | | | hassubstantially | | | | | | improved since the | | | | | | previous examination, | | | | | | but not resolved. | | | | | | IMPRESSION: Substantial | | | | | | improvement in the | | | | | | bilateral dependent | | | | | | areas of atelectasis. | | | | | | Attending Radiologists: | | | | | | LEXI MCNEILL, | | | | | | MDAuthor: LEXI Mc | | | | | | MD OSITO I have | | | | | | personally viewed this | | | | | | procedure/exam, reviewed | | | | | | this report, and | | | | | | madechanges to it where | | | | | | appropriate. | | | | | | Final/Electronically | | | | | | signed / LEXI Mc | | | | | | OSITO 04/06/2013 | | | | | | 13:31 PM | | | | + + + + + + + + | Specimen | + + | | + + + +---------+ + + | Performing | Address | City/State/Zipcode | Phone Number | | Organization | | | | + +---------+ + + | [facility] | | | | [facility] | | | | + +---------+ + + CAPILLARY BLOOD GLUCOSE (NO CHG), POC (04/06/2013 6:14 AM PDT) + +---------+ + + + | Component | Value | Ref Range | Performed | Pathologist | | | | | At | Signature | + +---------+ + + + | BLOOD | 129 (H) | 60 - 99 mg/dL | [facility] - | | | GLUCOSE, | | | [facility] | | | POC | | | [facility] | | | | | | OF CARE | | | | | | TESTS | | + +---------+ + + + + + | Specimen | + + | | + + + + + + + | Performing | Address | City/State/Zipcode | Phone Number | | Organization | | | | + + + + + | [facility] | [address] | [place], [place] | | | [facility] | [address] | [address] | | | TESTS | | | | + + + + + PHOSPHORUS, PLASMA (04/06/2013 4:36 AM PDT) + +-------+ + + + | Component | Value | Ref Range | Performed | Pathologist | | | | | At | Signature | + +-------+ + + + | PHOSPHORUS, | 4.5 | 2.4 - 4.7 mg/dL | [facility] | | | PLASMA | | | LABORATORY | | | (LAB) | | | SERVICES, | | | | | | CORE | | + +-------+ + + + + + | Specimen | + + | Blood - Blood | + + + + + + + | Performing | Address | City/State/Zipcode | Phone Number | | Organization | | | | + + + + + | [facility] | [address] | [place] [address] | | | SERVICES, CORE | [address] | | | + + + + + CBC (HEMOGRAM) ONLY (04/06/2013 4:36 AM PDT) + + + + + + | Component | Value | Ref Range | Performed | Pathologist | | | | | At | Signature | + + + + + + | WHITE CELL | 8.82 | 4.40 - 11.00 | [facility] | | | COUNT | | K/cu mm | LABORATORY | | | | | | SERVICES, | | | | | | CORE | | + + + + + + | RED CELL | 3.94 (L) | 4.00 - 5.20 | [facility] | | | COUNT | | M/cu mm | LABORATORY | | | | | | SERVICES, | | | | | | CORE | | + + + + + + | HEMOGLOBIN | 12.0 | 12.0 - 16.0 | [facility] | | | | | g/dL | LABORATORY | | | | | | SERVICES, | | | | | | CORE | | + + + + + + | HEMATOCRIT | 37.1 | 36.0 - 46.0 % | [facility] | | | | | | LABORATORY | | | | | | SERVICES, | | | | | | CORE | | + + + + + + | MCV | 94.2 | 80.0 - 96.0 fL | [facility] | | | | | | LABORATORY | | | | | | SERVICES, | | | | | | CORE | | + + + + + + | MCHC | 32.3 (L) | 33.0 - 35.5 | [facility] | | | | | g/dL | LABORATORY | | | | | | SERVICES, | | | | | | CORE | | + + + + + + | RDW SD | 47.9 (H) | 35.1 - 46.3 fL | [facility] | | | | | | LABORATORY | | | | | | SERVICES, | | | | | | CORE | | + + + + + + | PLATELET | 427 (H) | 150 - 400 K/cu | [facility] | | | COUNT | | mm | LABORATORY | | | | | | SERVICES, | | | | | | CORE | | + + + + + + | MPV | 10.3 | 9.7 - 12.3 fL | [facility] | | | | | | LABORATORY | | | | | | SERVICES, | | | | | | CORE | | + + + + + + | NRBC% | 0.0 | 0.0 - 0.3 % | [facility] | | | | | | LABORATORY | | | | | | SERVICES, | | | | | | CORE | | + + + + + + | NRBC# | 0.00 | 0.00 - 0.02 | [facility] | | | | | K/cu mm | LABORATORY | | | | | | SERVICES, | | | | | | CORE | | + + + + + + + + | Specimen | + + | Blood - Blood | + + + + + | Narrative | Performed At | + + + | New methodology and reference ranges for some CBC/Differential | [facility] | | analytes in effect on 02/27/13. | LABORATORY | | | SERVICES, CORE | + + + + + + + + | Performing | Address | City/State/Zipcode | Phone Number | | Organization | | | | + + + + + | [facility] | [address] | [place] [address] | | | SERVICES, CORE | [address] | | | + + + + + COMPLETE METABOLIC SET (NA,K,CL,CO2,BUN,CREAT,GLUC,CA,AST,ALT,BILI TOTAL,ALK PHOS,ALB,PROT TOTAL) (04/06/2013 4:36 AM PDT) + +---------+ + + + | Component | Value | Ref Range | Performed | Pathologist | | | | | At | Signature | + +---------+ + + + | GLUCOSE, | 114 (H) | 60 - 99 mg/dL | [facility] | | | PLASMA | | | LABORATORY | | | (LAB) | | | SERVICES, | | | | | | CORE | | + +---------+ + + + | BUN, PLASMA | 39 (H) | 6 - 20 mg/dL | [facility] | | | (LAB) | | | LABORATORY | | | | | | SERVICES, | | | | | | CORE | | + +---------+ + + + | CREATININE | 0.80 | 0.60 - 1.10 | [facility] | | | PLASMA | | mg/dL | LABORATORY | | | (LAB) | | | SERVICES, | | | | | | CORE | | + +---------+ + + + | EGFR | >60 | >60 mL/min | [facility] | | | - | | | LABORATORY | | | [place] [facility] | | | SERVICES, | | | | | | CORE | | + +---------+ + + + | EGFR NON | >60 | >60 mL/min | [facility] | | | -[facility] | | | LABORATORY | | | [facility] | | | SERVICES, | | | | | | CORE | | + +---------+ + + + | SODIUM, | 138 | 136 - 145 | [facility] | | | PLASMA | | mmol/L | LABORATORY | | | (LAB) | | | SERVICES, | | | | | | CORE | | + +---------+ + + + | POTASSIUM, | 3.9 | 3.4 - 5.0 | [facility] | | | PLASMA | | mmol/L | LABORATORY | | | (LAB) | | | SERVICES, | | | | | | CORE | | + +---------+ + + + | CHLORIDE, | 99 | 97 - 108 mmol/L | [facility] | | | PLASMA | | | LABORATORY | | | (LAB) | | | SERVICES, | | | | | | CORE | | + +---------+ + + + | TOTAL CO2, | 28 | 21 - 32 mmol/L | [facility] | | | PLASMA | | | LABORATORY | | | (LAB) | | | SERVICES, | | | | | | CORE | | + +---------+ + + + | CALCIUM, | 8.9 | 8.6 - 10.2 | [facility] | | | PLASMA | | mg/dL | LABORATORY | | | (LAB) | | | SERVICES, | | | | | | CORE | | + +---------+ + + + | BILIRUBIN | 0.5 | 0.3 - 1.2 mg/dL | [facility] | | | TOTAL | | | LABORATORY | | | | | | SERVICES, | | | | | | CORE | | + +---------+ + + + | TOTAL | 7.4 | 6.4 - 8.2 g/dL | [facility] | | | PROTEIN, | | | LABORATORY | | | PLASMA | | | SERVICES, | | | (LAB) | | | CORE | | + +---------+ + + + | ALBUMIN, | 3.2 (L) | 3.5 - 4.7 g/dL | [facility] | | | PLASMA | | | LABORATORY | | | (LAB) | | | SERVICES, | | | | | | CORE | | + +---------+ + + + | ALK PHOS | 81 | 53 - 141 U/L | [facility] | | | | | | LABORATORY | | | | | | SERVICES, | | | | | | CORE | | + +---------+ + + + | AST(SGOT) | 29 | 15 - 41 U/L | [facility] | | | | | | LABORATORY | | | | | | SERVICES, | | | | | | CORE | | + +---------+ + + + | ALT (SGPT) | 16 | 12 - 60 U/L | [facility] | | | | | | LABORATORY | | | | | | SERVICES, | | | | | | CORE | | + +---------+ + + + | ANION | 13 (H) | 4 - 11 mmol/L | [facility] | | | GAP(ALB | | | LABORATORY | | | CORRECTED) | | | SERVICES, | | | | | | CORE | | + +---------+ + + + | POTASSIUM | No Hemo | | [facility] | | | CMNT | | | LABORATORY | | | | | | SERVICES, | | | | | | CORE | | + +---------+ + + + | BILI T CMNT | No Hemo | | [facility] | | | | | | LABORATORY | | | | | | SERVICES, | | | | | | CORE | | + +---------+ + + + | AST CMNT | No Hemo | | [facility] | | | | | | LABORATORY | | | | | | SERVICES, | | | | | | CORE | | + +---------+ + + + | ANION GAP | 11 | mmol/L | [facility] | | | | | | LABORATORY | | | | | | SERVICES, | | | | | | CORE | | + +---------+ + + + + + | Specimen | + + | Blood - Blood | + + + + + | Narrative | Performed At | + + + | GFR is estimated using the MDRD equation recommended by the | [facility] | | National Kidney Disease Education Program. Estimated GFR | LABORATORY | | Interpretive Information: <60 mL/min/1.73 sq m | SERVICES, CORE | | Chronic Kidney Disease <15 mL/min/1.73 sq m | | | Kidney Failure Estimated GFR greater that 60 mL/min/1.73 sq m is of | | | limited clinical value. The MDRD equation is not valid in the | | | following situations: - Patients under 18 years of age - Severe | | | malnutrition or obesity - Vegetarian diet - Rapidly changing kidney | | | function New reference range effective 2012 for Total proteins | | | performed in Core Lab only. | | + + + + + + + + | Performing | Address | City/State/Zipcode | Phone Number | | Organization | | | | + + + + + | [facility] | [address] | [place] [address] | | | SERVICES, CORE | [address] | | | + + + + + LIPASE, PLASMA (04/06/2013 4:36 AM PDT) + +---------+ + + + | Component | Value | Ref Range | Performed | Pathologist | | | | | At | Signature | + +---------+ + + + | LIPASE | 767 (H) | 152 - 353 U/L | [facility] | | | (LAB) | | | LABORATORY | | | | | | SERVICES, | | | | | | CORE | | + +---------+ + + + + + | Specimen | + + | Blood - Blood | + + + + + + + | Performing | Address | City/State/Zipcode | Phone Number | | Organization | | | | + + + + + | [facility] | [address] | [place] [address] | | | SERVICES, CORE | [address] | | | + + + + + MAGNESIUM, PLASMA (04/06/2013 4:36 AM PDT) + +-------+ + + + | Component | Value | Ref Range | Performed | Pathologist | | | | | At | Signature | + +-------+ + + + | MAGNESIUM,P | 2.4 | 1.8 - 2.5 mg/dL | [facility] | | | [facility] | | | LABORATORY | | | | | | SERVICES, | | | | | | CORE | | + +-------+ + + + + + | Specimen | + + | Blood - Blood | + + + + + + + | Performing | Address | City/State/Zipcode | Phone Number | | Organization | | | | + + + + + | [facility] | [address] | [place] [address] | | | [place] | [address] | | | + + + + + CAPILLARY BLOOD GLUCOSE (NO CHG), POC (04/06/2013 12:04 AM PDT) + +---------+ + + + | Component | Value | Ref Range | Performed | Pathologist | | | | | At | Signature | + +---------+ + + + | BLOOD | 139 (H) | 60 - 99 mg/dL | [facility] - | | | GLUCOSE, | | | [facility] | | | POC | | | [facility] | | | | | | OF CARE | | | | | | TESTS | | + +---------+ + + + + + | Specimen | + + | | + + + + + + + | Performing | Address | City/State/Zipcode | Phone Number | | Organization | | | | + + + + + | [facility] | [address] | [place], [place] | | | [facility] OF [place] | [facility] | [address] | | | TESTS | | | | + + + + + CAPILLARY BLOOD GLUCOSE (NO CHG), POC (04/05/2013 5:54 PM PDT) + +-------+ + + + | Component | Value | Ref Range | Performed | Pathologist | | | | | At | Signature | + +-------+ + + + | BLOOD | 89 | 60 - 99 mg/dL | [facility] | | | GLUCOSE, | | | [facility] | | | POC | | | [facility] | | | | | | OF CARE | | | | | | TESTS | | + +-------+ + + + + + | Specimen | + + | | + + + + + + + | Performing | Address | City/State/Zipcode | Phone Number | | Organization | | | | + + + + + | [facility] | [address] | [place], [place] | | | [facility] | [address] | [address] | | | TESTS | | | | + + + + + CAPILLARY BLOOD GLUCOSE (NO CHG), POC (04/05/2013 11:53 AM PDT) + +---------+ + + + | Component | Value | Ref Range | Performed | Pathologist | | | | | At | Signature | + +---------+ + + + | BLOOD | 107 (H) | 60 - 99 mg/dL | [facility] - | | | GLUCOSE, | | | [facility] | | | POC | | | [facility] | | | | | | OF CARE | | | | | | TESTS | | + +---------+ + + + + + | Specimen | + + | | + + + + + + + | Performing | Address | City/State/Zipcode | Phone Number | | Organization | | | | + + + + + | [facility] | [address] | [place], [place] | | | [facility] [place] | [address] | [address] | | | TESTS | | | | + + + + + CAPILLARY BLOOD GLUCOSE (NO CHG), POC (04/05/2013 6:26 AM PDT) + +---------+ + + + | Component | Value | Ref Range | Performed | Pathologist | | | | | At | Signature | + +---------+ + + + | BLOOD | 126 (H) | 60 - 99 mg/dL | [facility] - | | | GLUCOSE, | | | [facility] | | | POC | | | [facility] | | | | | | OF CARE | | | | | | TESTS | | + +---------+ + + + + + | Specimen | + + | | + + + + + + + | Performing | Address | City/State/Zipcode | Phone Number | | Organization | | | | + + + + + | [facility] | [address] | [place], [place] | | | [facility] OF [facility] | [facility] | [address] | | | TESTS | | | | + + + + + CBC (HEMOGRAM) ONLY (04/05/2013 3:36 AM PDT) + + + + + + | Component | Value | Ref Range | Performed | Pathologist | | | | | At | Signature | + + + + + + | WHITE CELL | 7.67 | 4.40 - 11.00 | [facility] | | | COUNT | | K/cu mm | LABORATORY | | | | | | SERVICES, | | | | | | CORE | | + + + + + + | RED CELL | 3.90 (L) | 4.00 - 5.20 | [facility] | | | COUNT | | M/cu mm | LABORATORY | | | | | | SERVICES, | | | | | | CORE | | + + + + + + | HEMOGLOBIN | 11.7 (L) | 12.0 - 16.0 | [facility] | | | | | g/dL | LABORATORY | | | | | | SERVICES, | | | | | | CORE | | + + + + + + | HEMATOCRIT | 36.5 | 36.0 - 46.0 % | [facility] | | | | | | LABORATORY | | | | | | SERVICES, | | | | | | CORE | | + + + + + + | MCV | 93.6 | 80.0 - 96.0 fL | [facility] | | | | | | LABORATORY | | | | | | SERVICES, | | | | | | CORE | | + + + + + + | MCHC | 32.1 (L) | 33.0 - 35.5 | [facility] | | | | | g/dL | LABORATORY | | | | | | SERVICES, | | | | | | CORE | | + + + + + + | RDW SD | 48.2 (H) | 35.1 - 46.3 fL | [facility] | | | | | | LABORATORY | | | | | | SERVICES, | | | | | | CORE | | + + + + + + | PLATELET | 406 (H) | 150 - 400 K/cu | [facility] | | | COUNT | | mm | LABORATORY | | | | | | SERVICES, | | | | | | CORE | | + + + + + + | MPV | 10.2 | 9.7 - 12.3 fL | [facility] | | | | | | LABORATORY | | | | | | SERVICES, | | | | | | CORE | | + + + + + + | NRBC% | 0.0 | 0.0 - 0.3 % | [facility] | | | | | | LABORATORY | | | | | | SERVICES, | | | | | | CORE | | + + + + + + | NRBC# | 0.00 | 0.00 - 0.02 | [facility] | | | | | K/cu mm | LABORATORY | | | | | | SERVICES, | | | | | | CORE | | + + + + + + + + | Specimen | + + | Blood - Blood | + + + + + | Narrative | Performed At | + + + | New methodology and reference ranges for some CBC/Differential | [facility] | | analytes in effect on 02/27/13. | LABORATORY | | | SERVICES, CORE | + + + + + + + + | Performing | Address | City/State/Zipcode | Phone Number | | Organization | | | | + + + + + | [facility] | [address] [facility] | [place] [address] | | | SERVICES, CORE | [address] | | | + + + + + COMPLETE METABOLIC SET (NA,K,CL,CO2,BUN,CREAT,GLUC,CA,AST,ALT,BILI TOTAL,ALK PHOS,ALB,PROT TOTAL) (04/05/2013 3:36 AM PDT) + +---------+ + + + | Component | Value | Ref Range | Performed | Pathologist | | | | | At | Signature | + +---------+ + + + | GLUCOSE, | 99 | 60 - 99 mg/dL | [facility] | | | PLASMA | | | LABORATORY | | | (LAB) | | | SERVICES, | | | | | | CORE | | + +---------+ + + + | BUN, PLASMA | 34 (H) | 6 - 20 mg/dL | [facility] | | | (LAB) | | | LABORATORY | | | | | | SERVICES, | | | | | | CORE | | + +---------+ + + + | CREATININE | 0.76 | 0.60 - 1.10 | [facility] | | | PLASMA | | mg/dL | LABORATORY | | | (LAB) | | | SERVICES, | | | | | | CORE | | + +---------+ + + + | EGFR | >60 | >60 mL/min | [facility] | | | - | | | LABORATORY | | | [place] | | | SERVICES, | | | | | | CORE | | + +---------+ + + + | EGFR NON | >60 | >60 mL/min | [facility] | | | -[facility] | | | LABORATORY | | | [facility] | | | SERVICES, | | | | | | CORE | | + +---------+ + + + | SODIUM, | 137 | 136 - 145 | [facility] | | | PLASMA | | mmol/L | LABORATORY | | | (LAB) | | | SERVICES, | | | | | | CORE | | + +---------+ + + + | POTASSIUM, | 4.1 | 3.4 - 5.0 | [facility] | | | PLASMA | | mmol/L | LABORATORY | | | (LAB) | | | SERVICES, | | | | | | CORE | | + +---------+ + + + | CHLORIDE, | 101 | 97 - 108 mmol/L | [facility] | | | PLASMA | | | LABORATORY | | | (LAB) | | | SERVICES, | | | | | | CORE | | + +---------+ + + + | TOTAL CO2, | 26 | 21 - 32 mmol/L | [facility] | | | PLASMA | | | LABORATORY | | | (LAB) | | | SERVICES, | | | | | | CORE | | + +---------+ + + + | CALCIUM, | 8.4 (L) | 8.6 - 10.2 | [facility] | | | PLASMA | | mg/dL | LABORATORY | | | (LAB) | | | SERVICES, | | | | | | CORE | | + +---------+ + + + | BILIRUBIN | 0.6 | 0.3 - 1.2 mg/dL | [facility] | | | TOTAL | | | LABORATORY | | | | | | SERVICES, | | | | | | CORE | | + +---------+ + + + | TOTAL | 7.1 | 6.4 - 8.2 g/dL | [facility] | | | PROTEIN, | | | LABORATORY | | | PLASMA | | | SERVICES, | | | (LAB) | | | CORE | | + +---------+ + + + | ALBUMIN, | 2.8 (L) | 3.5 - 4.7 g/dL | [facility] | | | PLASMA | | | LABORATORY | | | (LAB) | | | SERVICES, | | | | | | CORE | | + +---------+ + + + | ALK PHOS | 72 | 53 - 141 U/L | [facility] | | | | | | LABORATORY | | | | | | SERVICES, | | | | | | CORE | | + +---------+ + + + | AST(SGOT) | 31 | 15 - 41 U/L | [facility] | | | | | | LABORATORY | | | | | | SERVICES, | | | | | | CORE | | + +---------+ + + + | ALT (SGPT) | 15 | 12 - 60 U/L | [facility] | | | | | | LABORATORY | | | | | | SERVICES, | | | | | | CORE | | + +---------+ + + + | ANION | 13 (H) | 4 - 11 mmol/L | [facility] | | | GAP(ALB | | | LABORATORY | | | CORRECTED) | | | SERVICES, | | | | | | CORE | | + +---------+ + + + | POTASSIUM | No Hemo | | [facility] | | | CMNT | | | LABORATORY | | | | | | SERVICES, | | | | | | CORE | | + +---------+ + + + | BILI T CMNT | No Hemo | | [facility] | | | | | | LABORATORY | | | | | | SERVICES, | | | | | | CORE | | + +---------+ + + + | AST CMNT | No Hemo | | [facility] | | | | | | LABORATORY | | | | | | SERVICES, | | | | | | CORE | | + +---------+ + + + | ANION GAP | 10 | mmol/L | [facility] | | | | | | LABORATORY | | | | | | SERVICES, | | | | | | CORE | | + +---------+ + + + + + | Specimen | + + | Blood - Blood | + + + + + | Narrative | Performed At | + + + | GFR is estimated using the MDRD equation recommended by the | [facility] | | National Kidney Disease Education Program. Estimated GFR | LABORATORY | | Interpretive Information: <60 mL/min/1.73 sq m | SERVICES, CORE | | Chronic Kidney Disease <15 mL/min/1.73 sq m | | | Kidney Failure Estimated GFR greater that 60 mL/min/1.73 sq m is of | | | limited clinical value. The MDRD equation is not valid in the | | | following situations: - Patients under 18 years of age - Severe | | | malnutrition or obesity - Vegetarian diet - Rapidly changing kidney | | | function New reference range effective 2012 for Total proteins | | | performed in Core Lab only. | | + + + + + + + + | Performing | Address | City/State/Zipcode | Phone Number | | Organization | | | | + + + + + | [facility] | [address] | [place] [address] | | | SERVICES, CORE | [address] | | | + + + + + LIPASE, PLASMA (04/05/2013 3:36 AM PDT) + +---------+ + + + | Component | Value | Ref Range | Performed | Pathologist | | | | | At | Signature | + +---------+ + + + | LIPASE | 873 (H) | 152 - 353 U/L | [facility] | | | (LAB) | | | LABORATORY | | | | | | SERVICES, | | | | | | CORE | | + +---------+ + + + + + | Specimen | + + | Blood - Blood | + + + + + + + | Performing | Address | City/State/Zipcode | Phone Number | | Organization | | | | + + + + + | [facility] | [address] | [place] [address] | | | SERVICES, CORE | [address] | | | + + + + + PHOSPHORUS, PLASMA (04/05/2013 3:36 AM PDT) + +---------+ + + + | Component | Value | Ref Range | Performed | Pathologist | | | | | At | Signature | + +---------+ + + + | PHOSPHORUS, | 5.3 (H) | 2.4 - 4.7 mg/dL | [facility] | | | PLASMA | | | LABORATORY | | | (LAB) | | | SERVICES, | | | | | | CORE | | + +---------+ + + + + + | Specimen | + + | Blood - Blood | + + + + + + + | Performing | Address | City/State/Zipcode | Phone Number | | Organization | | | | + + + + + | [facility] | [address] | [place] [address] | | | SERVICES, CORE | [address] | | | + + + + + MAGNESIUM, PLASMA (04/05/2013 3:36 AM PDT) + +-------+ + + + | Component | Value | Ref Range | Performed | Pathologist | | | | | At | Signature | + +-------+ + + + | MAGNESIUM,P | 2.3 | 1.8 - 2.5 mg/dL | [facility] | | | LASMA | | | LABORATORY | | | | | | SERVICES, | | | | | | CORE | | + +-------+ + + + + + | Specimen | + + | Blood - Blood | + + + + + + + | Performing | Address | City/State/Zipcode | Phone Number | | Organization | | | | + + + + + | [facility] | [address] | [place] [address] | | | SERVICES, CORE | [address] | | | + + + + + BASIC METABOLIC SET (NA, K, CL, TCO2, BUN, CR, GLU, CA) (04/05/2013 3:36 AM PDT) + +---------+ + + + | Component | Value | Ref Range | Performed | Pathologist | | | | | At | Signature | + +---------+ + + + | GLUCOSE, | 99 | 60 - 99 mg/dL | [facility] | | | PLASMA | | | LABORATORY | | | (LAB) | | | SERVICES, | | | | | | CORE | | + +---------+ + + + | BUN, PLASMA | 34 (H) | 6 - 20 mg/dL | [facility] | | | (LAB) | | | LABORATORY | | | | | | SERVICES, | | | | | | CORE | | + +---------+ + + + | CREATININE | 0.76 | 0.60 - 1.10 | [facility] | | | PLASMA | | mg/dL | LABORATORY | | | (LAB) | | | SERVICES, | | | | | | CORE | | + +---------+ + + + | EGFR | >60 | >60 mL/min | [facility] | | | - | | | LABORATORY | | | [facility] | | | SERVICES, | | | | | | CORE | | + +---------+ + + + | EGFR NON | >60 | >60 mL/min | [facility] | | | -[facility] | | | LABORATORY | | | [facility] | | | SERVICES, | | | | | | CORE | | + +---------+ + + + | SODIUM, | 137 | 136 - 145 | [facility] | | | PLASMA | | mmol/L | LABORATORY | | | (LAB) | | | SERVICES, | | | | | | CORE | | + +---------+ + + + | POTASSIUM, | 4.1 | 3.4 - 5.0 | [facility] | | | PLASMA | | mmol/L | LABORATORY | | | (LAB) | | | SERVICES, | | | | | | CORE | | + +---------+ + + + | CHLORIDE, | 101 | 97 - 108 mmol/L | [facility] | | | PLASMA | | | LABORATORY | | | (LAB) | | | SERVICES, | | | | | | CORE | | + +---------+ + + + | TOTAL CO2, | 26 | 21 - 32 mmol/L | [facility] | | | PLASMA | | | LABORATORY | | | (LAB) | | | SERVICES, | | | | | | CORE | | + +---------+ + + + | CALCIUM, | 8.4 (L) | 8.6 - 10.2 | [facility] | | | PLASMA | | mg/dL | LABORATORY | | | (LAB) | | | SERVICES, | | | | | | CORE | | + +---------+ + + + | ANION GAP | 10 | mmol/L | [facility] | | | | | | LABORATORY | | | | | | SERVICES, | | | | | | CORE | | + +---------+ + + + | POTASSIUM | No Hemo | | [facility] | | | [facility] | | | LABORATORY | | | | | | SERVICES, | | | | | | CORE | | + +---------+ + + + + + | Specimen | + + | Blood - Blood | + + + + + | Narrative | Performed At | + + + | GFR is estimated using the MDRD equation recommended by the | [facility] | | National Kidney Disease Education Program. Estimated GFR | LABORATORY | | Interpretive Information: <60 mL/min/1.73 sq m | SERVICES, CORE | | Chronic Kidney Disease <15 mL/min/1.73 sq m | | | Kidney Failure Estimated GFR greater that 60 mL/min/1.73 sq m is of | | | limited clinical value. The MDRD equation is not valid in the | | | following situations: - Patients under 18 years of age - Severe | | | malnutrition or obesity - Vegetarian diet - Rapidly changing kidney | | | function | | + + + + + + + + | Performing | Address | City/State/Zipcode | Phone Number | | Organization | | | | + + + + + | [facility] | [address] | [place] [address] | | | [place] | [address] | | | + + + + + CAPILLARY BLOOD GLUCOSE (NO CHG), POC (04/04/2013 11:56 PM PDT) + +---------+ + + + | Component | Value | Ref Range | Performed | Pathologist | | | | | At | Signature | + +---------+ + + + | BLOOD | 114 (H) | 60 - 99 mg/dL | [facility] | | | GLUCOSE, | | | [facility] | | | POC | | | [facility] | | | | | | OF CARE | | | | | | TESTS | | + +---------+ + + + + + | Specimen | + + | | + + + + + + + | Performing | Address | City/State/Zipcode | Phone Number | | Organization | | | | + + + + + | [facility] | [address] | [place], [place] | | | [facility] | [address] | [address] | | | TESTS | | | | + + + + + MRI CHOLANGIOGRAPHY WWO CONTRAST (+ LIVER MASS) (04/04/2013 8:43 PM PDT) + + + + + + | Component | Value | Ref Range | Performed | Pathologist | | | | | At | Signature | + + + + + + | MR | STUDY: MRI | | | | | CHOLANGIOGR | CHOLANGIOGRAPHY WWO | | | | | APHY WWO | (LIVER MASS WWO) | | | | | CONTRAST | 04/04/13 20:43:00 | | | | | (+LIVER | COMPARISON: CT abdomen | | | | | MASS) | and pelvis with contrast | | | | | | 03/29/2013 abdominal | | | | | | ultrasound04/03/2013. | | | | | | HISTORY: Patient is | | | | | | status post | | | | | | cholecystectomy | | | | | | presenting with | | | | | | elevatedlipase; evaluate | | | | | | common bile duct | | | | | | calculus seen on the | | | | | | right upper | | | | | | quadrantultrasound. | | | | | | TECHNIQUE: Pre-and | | | | | | postcontrast enhanced | | | | | | multiplanar | | | | | | multi-sequence | | | | | | MR/M.R.C.P.images of the | | | | | | abdomen were acquired. | | | | | | Intravenous gadolinium | | | | | | contrast | | | | | | wasuneventfully | | | | | | administered for the | | | | | | postcontrast sequences. | | | | | | FINDINGS: Small | | | | | | bilateral pleural | | | | | | effusions are once again | | | | | | seen. There is a | | | | | | small hiatalhernia. | | | | | | Consolidation versus | | | | | | atelectasis is seen | | | | | | within both lower lobes. | | | | | | Thehepatic parenchyma | | | | | | exhibits normal signal | | | | | | intensity without | | | | | | abnormal foci ofcontrast | | | | | | enhancement. The | | | | | | gallbladder is | | | | | | surgically absent. No | | | | | | intrahepaticbiliary | | | | | | ductal dilatation is | | | | | | seen. The common bile | | | | | | duct is not dilatated as | | | | | | itmeasures up to 6 mm | | | | | | in the kenya hepatis. | | | | | | No calculi are seen | | | | | | within the | | | | | | mainintrahepatic bile | | | | | | ducts or the common bile | | | | | | duct. The stomach, | | | | | | duodenum,pancreas, | | | | | | spleen, adrenal glands, | | | | | | kidneys, and visualized | | | | | | portions of the | | | | | | smallbowel are normal. | | | | | | Scattered colonic | | | | | | diverticula are present, | | | | | | without | | | | | | regionaldiverticulitis. | | | | | | No abdominal free | | | | | | fluid or lymphadenopathy | | | | | | are visualized.The | | | | | | portal, splenic, and | | | | | | superior mesenteric | | | | | | veins are patent. | | | | | | Conventionalceliac | | | | | | axis anatomy is seen. | | | | | | There is partial | | | | | | visualization of a | | | | | | saccularinfrarenal | | | | | | abdominal aortic | | | | | | aneurysm. IMPRESSION: 1. | | | | | | No main intrahepatic | | | | | | or common bile duct | | | | | | calculi; no intrahepatic | | | | | | biliaryductal | | | | | | dilatation. 2. Small | | | | | | bilateral effusions with | | | | | | adjacent atelectasis. | | | | | | Attending Radiologists: | | | | | | ANDREA CALLAWAY, | | | | | | MDAuthor: IVÁN MERCER, | | | | | | MD I have personally | | | | | | viewed this | | | | | | procedure/exam, reviewed | | | | | | this report, and | | | | | | madechanges to it where | | | | | | appropriate. | | | | | | Final/Electronically | | | | | | signed / ANDREA Mc | | | | | | CESIA 04/06/2013 11:57 | | | | | | AM Pending final | | | | | | approval / IVÁN | | | | | | SYLVIE 04/06/2013 10:35 | | | | | | AM Result modified / | | | | | | IVÁN MERCER | | | | | | 04/06/2013 10:35 AM | | | | | | Pending final approval | | | | | | / IVÁN MERCER | | | | | | 04/06/2013 9:37 AM | | | | | | Preliminary / | | | | | | IVÁN MERCER 04/06/2013 | | | | | | 8:12 AM | | | | + + + + + + + + | Specimen | + + | | + + + +---------+ + + | Performing | Address | City/State/Zipcode | Phone Number | | Organization | | | | + +---------+ + + | [facility]MENT [facility] | | | | | RADIOLOGY | | | | + +---------+ + + CAPILLARY BLOOD GLUCOSE (NO CHG), POC (04/04/2013 5:55 PM PDT) + +---------+ + + + | Component | Value | Ref Range | Performed | Pathologist | | | | | At | Signature | + +---------+ + + + | BLOOD | 128 (H) | 60 - 99 mg/dL | [facility] - | | | GLUCOSE, | | | [place] | | | POC | | | [place] [place] | | | | | | OF CARE | | | | | | TESTS | | + +---------+ + + + + + | Specimen | + + | | + + + + + + + | Performing | Address | City/State/Zipcode | Phone Number | | Organization | | | | + + + + + | [facility] | [address] | [place], [place] | | | [facility] CARE | [facility] | [address] | | | TESTS | | | | + + + + + CAPILLARY BLOOD GLUCOSE (NO CHG), POC (04/04/2013 12:29 PM PDT) + +---------+ + + + | Component | Value | Ref Range | Performed | Pathologist | | | | | At | Signature | + +---------+ + + + | BLOOD | 138 (H) | 60 - 99 mg/dL | [facility] - | | | GLUCOSE, | | | [place] | | | POC | | | [facility] | | | | | | OF CARE | | | | | | TESTS | | + +---------+ + + + + + | Specimen | + + | | + + + + + + + | Performing | Address | City/State/Zipcode | Phone Number | | Organization | | | | + + + + + | [facility] | [address] | [place], [place] | | | [facility] | [address] | [address] | | | TESTS | | | | + + + + + CAPILLARY BLOOD GLUCOSE (NO CHG), POC (04/04/2013 6:05 AM PDT) + +---------+ + + + | Component | Value | Ref Range | Performed | Pathologist | | | | | At | Signature | + +---------+ + + + | BLOOD | 111 (H) | 60 - 99 mg/dL | [facility] - | | | GLUCOSE, | | | [place] | | | POC | | | [facility] | | | | | | OF CARE | | | | | | TESTS | | + +---------+ + + + + + | Specimen | + + | | + + + + + + + | Performing | Address | City/State/Zipcode | Phone Number | | Organization | | | | + + + + + | [facility] | [address] | [place], [place] | | | BRE[facility] EM[facility] OF [place] | [facility] | [address] | | | TESTS | | | | + + + + + CBC (HEMOGRAM) ONLY (04/04/2013 3:48 AM PDT) + + + + + + | Component | Value | Ref Range | Performed | Pathologist | | | | | At | Signature | + + + + + + | WHITE CELL | 9.33 | 4.40 - 11.00 | [facility] | | | COUNT | | K/cu mm | LABORATORY | | | | | | SERVICES, | | | | | | CORE | | + + + + + + | RED CELL | 3.75 (L) | 4.00 - 5.20 | [facility] | | | COUNT | | M/cu mm | LABORATORY | | | | | | SERVICES, | | | | | | CORE | | + + + + + + | HEMOGLOBIN | 10.8 (L) | 12.0 - 16.0 | [facility] | | | | | g/dL | LABORATORY | | | | | | SERVICES, | | | | | | CORE | | + + + + + + | HEMATOCRIT | 34.9 (L) | 36.0 - 46.0 % | [facility] | | | | | | LABORATORY | | | | | | SERVICES, | | | | | | CORE | | + + + + + + | MCV | 93.1 | 80.0 - 96.0 fL | [facility] | | | | | | LABORATORY | | | | | | SERVICES, | | | | | | CORE | | + + + + + + | MCHC | 30.9 (L) | 33.0 - 35.5 | [facility] | | | | | g/dL | LABORATORY | | | | | | SERVICES, | | | | | | CORE | | + + + + + + | RDW SD | 48.0 (H) | 35.1 - 46.3 fL | [facility] | | | | | | LABORATORY | | | | | | SERVICES, | | | | | | CORE | | + + + + + + | PLATELET | 390 | 150 - 400 K/cu | [facility] | | | COUNT | | mm | LABORATORY | | | | | | SERVICES, | | | | | | CORE | | + + + + + + | MPV | 10.0 | 9.7 - 12.3 fL | [facility] | | | | | | LABORATORY | | | | | | SERVICES, | | | | | | CORE | | + + + + + + | NRBC% | 0.0 | 0.0 - 0.3 % | [facility] | | | | | | LABORATORY | | | | | | SERVICES, | | | | | | CORE | | + + + + + + | NRBC# | 0.00 | 0.00 - 0.02 | [facility] | | | | | K/cu mm | LABORATORY | | | | | | SERVICES, | | | | | | CORE | | + + + + + + + + | Specimen | + + | Blood - Blood | + + + + + | Narrative | Performed At | + + + | New methodology and reference ranges for some CBC/Differential | [facility] | | analytes in effect on 02/27/13. | LABORATORY | | | SERVICES, CORE | + + + + + + + + | Performing | Address | City/State/Zipcode | Phone Number | | Organization | | | | + + + + + | [facility] | [address] | [place] [address] | | | SERVICES, CORE | [address] | | | + + + + + COMPLETE METABOLIC SET (NA,K,CL,CO2,BUN,CREAT,GLUC,CA,AST,ALT,BILI TOTAL,ALK PHOS,ALB,PROT TOTAL) (04/04/2013 3:48 AM PDT) + +---------+ + + + | Component | Value | Ref Range | Performed | Pathologist | | | | | At | Signature | + +---------+ + + + | GLUCOSE, | 94 | 60 - 99 mg/dL | [facility] | | | PLASMA | | | LABORATORY | | | (LAB) | | | SERVICES, | | | | | | CORE | | + +---------+ + + + | BUN, PLASMA | 29 (H) | 6 - 20 mg/dL | [facility] | | | (LAB) | | | LABORATORY | | | | | | SERVICES, | | | | | | CORE | | + +---------+ + + + | CREATININE | 0.61 | 0.60 - 1.10 | [facility] | | | PLASMA | | mg/dL | LABORATORY | | | (LAB) | | | SERVICES, | | | | | | CORE | | + +---------+ + + + | EGFR | >60 | >60 mL/min | [facility] | | | - | | | LABORATORY | | | [place] | | | SERVICES, | | | | | | CORE | | + +---------+ + + + | EGFR NON | >60 | >60 mL/min | [facility] | | | -[facility] | | | LABORATORY | | | [facility] | | | SERVICES, | | | | | | CORE | | + +---------+ + + + | SODIUM, | 136 | 136 - 145 | [facility] | | | PLASMA | | mmol/L | LABORATORY | | | (LAB) | | | SERVICES, | | | | | | CORE | | + +---------+ + + + | POTASSIUM, | 4.4 | 3.4 - 5.0 | [facility] | | | PLASMA | | mmol/L | LABORATORY | | | (LAB) | | | SERVICES, | | | | | | CORE | | + +---------+ + + + | CHLORIDE, | 102 | 97 - 108 mmol/L | [facility] | | | PLASMA | | | LABORATORY | | | (LAB) | | | SERVICES, | | | | | | CORE | | + +---------+ + + + | TOTAL CO2, | 27 | 21 - 32 mmol/L | [facility] | | | PLASMA | | | LABORATORY | | | (LAB) | | | SERVICES, | | | | | | CORE | | + +---------+ + + + | CALCIUM, | 8.4 (L) | 8.6 - 10.2 | [facility] | | | PLASMA | | mg/dL | LABORATORY | | | (LAB) | | | SERVICES, | | | | | | CORE | | + +---------+ + + + | BILIRUBIN | 0.4 | 0.3 - 1.2 mg/dL | [facility] | | | TOTAL | | | LABORATORY | | | | | | SERVICES, | | | | | | CORE | | + +---------+ + + + | TOTAL | 6.6 | 6.4 - 8.2 g/dL | [facility] | | | PROTEIN, | | | LABORATORY | | | PLASMA | | | SERVICES, | | | (LAB) | | | CORE | | + +---------+ + + + | ALBUMIN, | 2.7 (L) | 3.5 - 4.7 g/dL | [facility] | | | PLASMA | | | LABORATORY | | | (LAB) | | | SERVICES, | | | | | | CORE | | + +---------+ + + + | ALK PHOS | 64 | 53 - 141 U/L | [facility] | | | | | | LABORATORY | | | | | | SERVICES, | | | | | | CORE | | + +---------+ + + + | AST(SGOT) | 33 | 15 - 41 U/L | [facility] | | | | | | LABORATORY | | | | | | SERVICES, | | | | | | CORE | | + +---------+ + + + | ALT (SGPT) | 13 | 12 - 60 U/L | [facility] | | | | | | LABORATORY | | | | | | SERVICES, | | | | | | CORE | | + +---------+ + + + | ANION | 10 | 4 - 11 mmol/L | [facility] | | | GAP(ALB | | | LABORATORY | | | CORRECTED) | | | SERVICES, | | | | | | CORE | | + +---------+ + + + | POTASSIUM | No Hemo | | [facility] | | | CMNT | | | LABORATORY | | | | | | SERVICES, | | | | | | CORE | | + +---------+ + + + | BILI T CMNT | No Hemo | | [facility] | | | | | | LABORATORY | | | | | | SERVICES, | | | | | | CORE | | + +---------+ + + + | AST CMNT | No Hemo | | [facility] | | | | | | LABORATORY | | | | | | SERVICES, | | | | | | CORE | | + +---------+ + + + | ANION GAP | 7 | mmol/L | [facility] | | | | | | LABORATORY | | | | | | SERVICES, | | | | | | CORE | | + +---------+ + + + + + | Specimen | + + | Blood - Blood | + + + + + | Narrative | Performed At | + + + | GFR is estimated using the MDRD equation recommended by the | [facility] | | National Kidney Disease Education Program. Estimated GFR | LABORATORY | | Interpretive Information: <60 mL/min/1.73 sq m | [facility], [facility] | | Chronic Kidney Disease <15 mL/min/1.73 sq m | | | Kidney Failure Estimated GFR greater that 60 mL/min/1.73 sq m is of | | | limited clinical value. The MDRD equation is not valid in the | | | following situations: - Patients under 18 years of age - Severe | | | malnutrition or obesity - Vegetarian diet - Rapidly changing kidney | | | function New reference range effective 2012 for Total proteins | | | performed in Core Lab only. | | + + + + + + + + | Performing | Address | City/State/Zipcode | Phone Number | | Organization | | | | + + + + + | [facility] | [address] | [place] [address] | | | [facility], [facility] | [address] | | | + + + + + LIPASE, PLASMA (04/04/2013 3:48 AM PDT) + +---------+ + + + | Component | Value | Ref Range | Performed | Pathologist | | | | | At | Signature | + +---------+ + + + | LIPASE | 974 (H) | 152 - 353 U/L | [facility] | | | (LAB) | | | LABORATORY | | | | | | SERVICES, | | | | | | CORE | | + +---------+ + + + + + | Specimen | + + | Blood - Blood | + + + + + + + | Performing | Address | City/State/Zipcode | Phone Number | | Organization | | | | + + + + + | [facility] | [address] | [place] [address] | | | SERVICES, CORE | [address] | | | + + + + + PHOSPHORUS, PLASMA (04/04/2013 3:48 AM PDT) + +-------+ + + + | Component | Value | Ref Range | Performed | Pathologist | | | | | At | Signature | + +-------+ + + + | PHOSPHORUS, | 4.0 | 2.4 - 4.7 mg/dL | [facility] | | | PLASMA | | | LABORATORY | | | (LAB) | | | SERVICES, | | | | | | CORE | | + +-------+ + + + + + | Specimen | + + | Blood - Blood | + + + + + + + | Performing | Address | City/State/Zipcode | Phone Number | | Organization | | | | + + + + + | [facility] | [address] | [place] [address] | | | SERVICES, CORE | [address] | | | + + + + + MAGNESIUM, PLASMA (04/04/2013 3:48 AM PDT) + +-------+ + + + | Component | Value | Ref Range | Performed | Pathologist | | | | | At | Signature | + +-------+ + + + | MAGNESIUM,P | 2.1 | 1.8 - 2.5 mg/dL | [facility] | | | LASMA | | | LABORATORY | | | | | | SERVICES, | | | | | | CORE | | + +-------+ + + + + + | Specimen | + + | Blood - Blood | + + + + + + + | Performing | Address | City/State/Zipcode | Phone Number | | Organization | | | | + + + + + | [facility] | [address] | [place] [address] | | | SERVICES, CORE | [address] | | | + + + + + BASIC METABOLIC SET (NA, K, CL, TCO2, BUN, CR, GLU, CA) (04/04/2013 3:48 AM PDT) + +---------+ + + + | Component | Value | Ref Range | Performed | Pathologist | | | | | At | Signature | + +---------+ + + + | GLUCOSE, | 94 | 60 - 99 mg/dL | [facility] | | | PLASMA | | | LABORATORY | | | (LAB) | | | SERVICES, | | | | | | CORE | | + +---------+ + + + | BUN, PLASMA | 29 (H) | 6 - 20 mg/dL | [facility] | | | (LAB) | | | LABORATORY | | | | | | SERVICES, | | | | | | CORE | | + +---------+ + + + | CREATININE | 0.61 | 0.60 - 1.10 | [facility] | | | PLASMA | | mg/dL | LABORATORY | | | (LAB) | | | SERVICES, | | | | | | CORE | | + +---------+ + + + | EGFR | >60 | >60 mL/min | [facility] | | | - | | | LABORATORY | | | [place] | | | SERVICES, | | | | | | CORE | | + +---------+ + + + | EGFR NON | >60 | >60 mL/min | [facility] | | | -[facility] | | | LABORATORY | | | [facility] | | | SERVICES, | | | | | | CORE | | + +---------+ + + + | SODIUM, | 136 | 136 - 145 | [facility] | | | PLASMA | | mmol/L | LABORATORY | | | (LAB) | | | SERVICES, | | | | | | CORE | | + +---------+ + + + | POTASSIUM, | 4.4 | 3.4 - 5.0 | [facility] | | | PLASMA | | mmol/L | LABORATORY | | | (LAB) | | | SERVICES, | | | | | | CORE | | + +---------+ + + + | CHLORIDE, | 102 | 97 - 108 mmol/L | [facility] | | | PLASMA | | | LABORATORY | | | (LAB) | | | SERVICES, | | | | | | CORE | | + +---------+ + + + | TOTAL CO2, | 27 | 21 - 32 mmol/L | [facility] | | | PLASMA | | | LABORATORY | | | (LAB) | | | SERVICES, | | | | | | CORE | | + +---------+ + + + | CALCIUM, | 8.4 (L) | 8.6 - 10.2 | [facility] | | | PLASMA | | mg/dL | LABORATORY | | | (LAB) | | | SERVICES, | | | | | | CORE | | + +---------+ + + + | ANION GAP | 7 | mmol/L | [facility] | | | | | | LABORATORY | | | | | | SERVICES, | | | | | | CORE | | + +---------+ + + + | POTASSIUM | No Hemo | | [facility] | | | CMNT | | | LABORATORY | | | | | | SERVICES, | | | | | | CORE | | + +---------+ + + + + + | Specimen | + + | Blood - Blood | + + + + + | Narrative | Performed At | + + + | GFR is estimated using the MDRD equation recommended by the | [facility] | | National Kidney Disease Education Program. Estimated GFR | LABORATORY | | Interpretive Information: <60 mL/min/1.73 sq m | SERVICES, CORE | | Chronic Kidney Disease <15 mL/min/1.73 sq m | | | Kidney Failure Estimated GFR greater that 60 mL/min/1.73 sq m is of | | | limited clinical value. The MDRD equation is not valid in the | | | following situations: - Patients under 18 years of age - Severe | | | malnutrition or obesity - Vegetarian diet - Rapidly changing kidney | | | function | | + + + + + + + + | Performing | Address | City/State/Zipcode | Phone Number | | Organization | | | | + + + + + | [facility] | [address] | [place] [address] | | | SERVICES, CORE | [address] | | | + + + + + CAPILLARY BLOOD GLUCOSE (NO CHG), POC (04/03/2013 11:45 PM PDT) + +---------+ + + + | Component | Value | Ref Range | Performed | Pathologist | | | | | At | Signature | + +---------+ + + + | BLOOD | 114 (H) | 60 - 99 mg/dL | [facility] - | | | GLUCOSE, | | | [facility] | | | POC | | | [facility] | | | | | | OF CARE | | | | | | TESTS | | + +---------+ + + + + + | Specimen | + + | | + + + + + + + | Performing | Address | City/State/Zipcode | Phone Number | | Organization | | | | + + + + + | [facility] | [address] | [place], [place] | | | [facility] | [address] | [address] | | | TESTS | | | | + + + + + CAPILLARY BLOOD GLUCOSE (NO CHG), POC (04/03/2013 7:05 PM PDT) + +---------+ + + + | Component | Value | Ref Range | Performed | Pathologist | | | | | At | Signature | + +---------+ + + + | BLOOD | 127 (H) | 60 - 99 mg/dL | [facility] - | | | GLUCOSE, | | | [place] | | | POC | | | [facility] | | | | | | OF CARE | | | | | | TESTS | | + +---------+ + + + + + | Specimen | + + | | + + + + + + + | Performing | Address | City/State/Zipcode | Phone Number | | Organization | | | | + + + + + | [facility] | [address] | [place], [place] | | | [facility] | [address] | [address] | | | TESTS | | | | + + + + + X-RAY ABD LTD FEEDING TUBE EVAL (04/03/2013 6:18 PM PDT) + + + + + + | Component | Value | Ref Range | Performed | Pathologist | | | | | At | Signature | + + + + + + | ABD LTD | STUDY: ABD LTD FEEDING | | | | | FEEDING | TUBE EVAL 04/03/13 | | | | | TUBE EVAL | 18:18:00 INDICATION: | | | | | | Dobbhoff tube placement. | | | | | | COMPARISON: 04/03/13 | | | | | | FINDINGS/IMPRESSION:A | | | | | | Dobbhoff tube is turned | | | | | | at the level of the | | | | | | pylorus and the tip | | | | | | projects 4 cmproximally, | | | | | | over the distal | | | | | | stomach. The | | | | | | visualized bowel gas | | | | | | pattern isunremarkable. | | | | | | Lung bases are grossly | | | | | | unchanged. Attending | | | | | | Radiologists: SIMI JUSTIN, | | | | | | MDAuthor: SIMI JUSTIN MD | | | | | | I have personally | | | | | | viewed this | | | | | | procedure/exam, reviewed | | | | | | this report, and | | | | | | madechanges to it where | | | | | | appropriate. | | | | | | Final/Electronically | | | | | | signed / SIMI JUSTIN | | | | | | 04/03/2013 19:33 PM | | | | + + + + + + + + | Specimen | + + | | + + + +---------+ + + | Performing | Address | City/State/Zipcode | Phone Number | | Organization | | | | + +---------+ + + | [facility] DEPARTMENT OF | | | | | RADIOLOGY | | | | + +---------+ + + US ABDOMEN LIMITED (04/03/2013 4:59 PM PDT) + + + + + + | Component | Value | Ref Range | Performed | Pathologist | | | | | At | Signature | + + + + + + | US ABDOMEN | Exam: US ABDOMEN | | | | | LIMITED | LIMITED, 04/03/13 16:59 | | | | | | Clinical Data: Evaluate | | | | | | for retained common bile | | | | | | duct stones Comparison: | | | | | | CT of the abdomen and | | | | | | pelvis 03/24 | | | | | | TECHNIQUE:Real time | | | | | | grayscale and color flow | | | | | | ultrasound images of | | | | | | the right upperquadrant | | | | | | of the abdomen were | | | | | | obtained. Findings:The | | | | | | liver size is normal. | | | | | | The liver is mildly | | | | | | increased in | | | | | | echotexturethroughout, | | | | | | with no intrahepatic | | | | | | masses identified. The | | | | | | gallbladder | | | | | | issurgically absent. | | | | | | There is mild | | | | | | extrahepatic biliary | | | | | | ductal dilation and | | | | | | [facility] | | | | | | measures 7 mm in | | | | | | diameter. Within the | | | | | | mid aspect of thecommon | | | | | | bile duct, a 10-mm | | | | | | hyperechoic focus with | | | | | | posterior acoustic | | | | | | shadowingis noted, | | | | | | consistent with a | | | | | | retained common bile | | | | | | duct stone. There is a | | | | | | small amount of free | | | | | | fluid. Impression:A | | | | | | common bile duct stone | | | | | | is present. Diffusely | | | | | | hyperechoic liver is | | | | | | consistent with diffuse | | | | | | liver disease such | | | | | | ashepatic steatosis. | | | | | | Attending Radiologists: | | | | | | LILIANA TOTH MDAuthor: | | | | | | Russ Hernandez M.D. I | | | | | | have personally viewed | | | | | | this procedure/exam, | | | | | | reviewed this report, | | | | | | and madechanges to it | | | | | | where appropriate. | | | | | | Final/Electronically | | | | | | signed / LILIANA TOTH | | | | | | 04/03/2013 18:24 PM | | | | | | Pending final approval | | | | | | / Russ Hernandez | | | | | | 04/03/2013 17:29 PM | | | | | | Preliminary / | | | | | | Russ Hernandez 04/03/2013 | | | | | | 17:15 PM | | | | + + + + + + + + | Specimen | + + | | + + + +---------+ + + | Performing | Address | City/State/Zipcode | Phone Number | | Organization | | | | + +---------+ + + | [facility] DEPARTMENT OF | | | | | RADIOLOGY | | | | + +---------+ + + CAPILLARY BLOOD GLUCOSE (NO CHG), POC (04/03/2013 12:02 PM PDT) + +---------+ + + + | Component | Value | Ref Range | Performed | Pathologist | | | | | At | Signature | + +---------+ + + + | BLOOD | 131 (H) | 60 - 99 mg/dL | [facility] - | | | GLUCOSE, | | | [facility] | | | POC | | | [facility] | | | | | | OF CARE | | | | | | TESTS | | + +---------+ + + + + + | Specimen | + + | | + + + + + + + | Performing | Address | City/State/Zipcode | Phone Number | | Organization | | | | + + + + + | [facility] | [address] | [place], [place] | | | [facility] [place] | [address] | [phone] | | | TESTS | | | | + + + + + X-RAY ABD LTD FEEDING TUBE EVAL (04/03/2013 9:21 AM PDT) + + + + + + | Component | Value | Ref Range | Performed | Pathologist | | | | | At | Signature | + + + + + + | ABD LTD | HISTORY: Feeding tube. | | | | | FEEDING | COMPARISON: [facility] | | | | | TUBE EVAL | 04/02/13. IMPRESSION: A | | | | | | single frontal view of | | | | | | the abdomen was | | | | | | obtained. The tip of a | | | | | | feeding tubeis in the | | | | | | gastric outlet, pointing | | | | | | towards the pylorus. | | | | | | Attending Radiologists: | | | | | | ANDREA CALLAWAY, | | | | | | MDAuthor: ANDREA Mc | | | | | | MD CESIA I have | | | | | | personally viewed this | | | | | | procedure/exam, reviewed | | | | | | this report, and | | | | | | madechanges to it where | | | | | | appropriate. | | | | | | Final/Electronically | | | | | | signed / ANDREA Mc | | | | | | CESIA 04/03/2013 9:51 | | | | | | AM | | | | + + + + + + + + | Specimen | + + | | + + + +---------+ + + | Performing | Address | City/State/Zipcode | Phone Number | | Organization | | | | + +---------+ + + | [facility] | | | [facility] | | | | + +---------+ + + CAPILLARY BLOOD GLUCOSE (NO CHG), POC (04/03/2013 6:20 AM PDT) + +---------+ + + + | Component | Value | Ref Range | Performed | Pathologist | | | | | At | Signature | + +---------+ + + + | BLOOD | 130 (H) | 60 - 99 mg/dL | [facility] - | | | GLU[facility], | | | [facility] | | | POC | | | [facility] | | | | | | OF CARE | | | | | | TESTS | | + +---------+ + + + + + | Specimen | + + | | + + + + + + + | Performing | Address | City/State/Zipcode | Phone Number | | Organization | | | | + + + + + | [facility] | [address] | [place], [place] | | | [facility] [place] | [address] | [phone] | | | TESTS | | | | + + + + + CBC (HEMOGRAM) ONLY (04/03/2013 3:50 AM PDT) + + + + + + | Component | Value | Ref Range | Performed | Pathologist | | | | | At | Signature | + + + + + + | WHITE CELL | 8.82 | 4.40 - 11.00 | [facility] | | | COUNT | | K/cu mm | LABORATORY | | | | | | SERVICES, | | | | | | CORE | | + + + + + + | RED CELL | 3.33 (L) | 4.00 - 5.20 | [facility] | | | COUNT | | M/cu mm | LABORATORY | | | | | | SERVICES, | | | | | | CORE | | + + + + + + | HEMOGLOBIN | 10.0 (L) | 12.0 - 16.0 | [facility] | | | | | g/dL | LABORATORY | | | | | | SERVICES, | | | | | | CORE | | + + + + + + | HEMATOCRIT | 32.1 (L) | 36.0 - 46.0 % | [facility] | | | | | | LABORATORY | | | | | | SERVICES, | | | | | | CORE | | + + + + + + | MCV | 96.4 (H) | 80.0 - 96.0 fL | [facility] | | | | | | LABORATORY | | | | | | SERVICES, | | | | | | CORE | | + + + + + + | MCHC | 31.2 (L) | 33.0 - 35.5 | [facility] | | | | | g/dL | LABORATORY | | | | | | SERVICES, | | | | | | CORE | | + + + + + + | RDW SD | 49.2 (H) | 35.1 - 46.3 fL | [facility] | | | | | | LABORATORY | | | | | | SERVICES, | | | | | | CORE | | + + + + + + | PLATELET | 354 | 150 - 400 K/cu | [facility] | | | COUNT | | mm | LABORATORY | | | | | | SERVICES, | | | | | | CORE | | + + + + + + | MPV | 9.9 | 9.7 - 12.3 fL | [facility] | | | | | | LABORATORY | | | | | | SERVICES, | | | | | | CORE | | + + + + + + | NRBC% | 0.0 | 0.0 - 0.3 % | [facility] | | | | | | LABORATORY | | | | | | SERVICES, | | | | | | CORE | | + + + + + + | NRBC# | 0.00 | 0.00 - 0.02 | [facility] | | | | | K/cu mm | LABORATORY | | | | | | SERVICES, | | | | | | CORE | | + + + + + + + + | Specimen | + + | Blood - Blood | + + + + + | Narrative | Performed At | + + + | New methodology and reference ranges for some CBC/Differential | [facility] | | analytes in effect on 02/27/13. | LABORATORY | | | SERVICES, CORE | + + + + + + + + | Performing | Address | City/State/Zipcode | Phone Number | | Organization | | | | + + + + + | [facility] | [address] | [place] [address] | | | SERVICES, CORE | [address] | | | + + + + + COMPLETE METABOLIC SET (NA,K,CL,CO2,BUN,CREAT,GLUC,CA,AST,ALT,BILI TOTAL,ALK PHOS,ALB,PROT TOTAL) (04/03/2013 3:50 AM PDT) + + + + + + | Component | Value | Ref Range | Performed | Pathologist | | | | | At | Signature | + + + + + + | GLUCOSE, | 101 (H) | 60 - 99 mg/dL | [facility] | | | PLASMA | | | LABORATORY | | | (LAB) | | | SERVICES, | | | | | | CORE | | + + + + + + | BUN, PLASMA | 26 (H) | 6 - 20 mg/dL | [facility] | | | (LAB) | | | LABORATORY | | | | | | SERVICES, | | | | | | CORE | | + + + + + + | CREATININE | 0.49 (L) | 0.60 - 1.10 | [facility] | | | PLASMA | | mg/dL | LABORATORY | | | (LAB) | | | SERVICES, | | | | | | CORE | | + + + + + + | EGFR | >60 | >60 mL/min | [facility] | | | - | | | LABORATORY | | | [place] [facility] | | | SERVICES, | | | | | | CORE | | + + + + + + | EGFR NON | >60 | >60 mL/min | [facility] | | | -[facility]ANK[facility] | | | LABORATORY | | | [facility] | | | SERVICES, | | | | | | CORE | | + + + + + + | SODIUM, | 137 | 136 - 145 | [facility] | | | PLASMA | | mmol/L | LABORATORY | | | (LAB) | | | SERVICES, | | | | | | CORE | | + + + + + + | POTASSIUM, | 4.6 | 3.4 - 5.0 | [facility] | | | PLASMA | | mmol/L | LABORATORY | | | (LAB) | | | SERVICES, | | | | | | CORE | | + + + + + + | CHLORIDE, | 105 | 97 - 108 mmol/L | [facility] | | | PLASMA | | | LABORATORY | | | (LAB) | | | SERVICES, | | | | | | CORE | | + + + + + + | TOTAL CO2, | 26 | 21 - 32 mmol/L | [facility] | | | PLASMA | | | LABORATORY | | | (LAB) | | | SERVICES, | | | | | | CORE | | + + + + + + | CALCIUM, | 8.0 (L) | 8.6 - 10.2 | [facility] | | | PLASMA | | mg/dL | LABORATORY | | | (LAB) | | | SERVICES, | | | | | | CORE | | + + + + + + | BILIRUBIN | 0.3 | 0.3 - 1.2 mg/dL | [facility] | | | TOTAL | | | LABORATORY | | | | | | SERVICES, | | | | | | CORE | | + + + + + + | TOTAL | 5.6 (L) | 6.4 - 8.2 g/dL | [facility] | | | PROTEIN, | | | LABORATORY | | | PLASMA | | | SERVICES, | | | (LAB) | | | CORE | | + + + + + + | ALBUMIN, | 2.3 (L) | 3.5 - 4.7 g/dL | [facility] | | | PLASMA | | | LABORATORY | | | (LAB) | | | SERVICES, | | | | | | CORE | | + + + + + + | ALK PHOS | 54 | 53 - 141 U/L | [facility] | | | | | | LABORATORY | | | | | | SERVICES, | | | | | | CORE | | + + + + + + | AST(SGOT) | 19 | 15 - 41 U/L | [facility] | | | | | | LABORATORY | | | | | | SERVICES, | | | | | | CORE | | + + + + + + | ALT (SGPT) | 12 | 12 - 60 U/L | [facility] | | | | | | LABORATORY | | | | | | SERVICES, | | | | | | CORE | | + + + + + + | ANION | 10 | 4 - 11 mmol/L | [facility] | | | GAP(ALB | | | LABORATORY | | | CORRECTED) | | | SERVICES, | | | | | | CORE | | + + + + + + | POTASSIUM | No Hemo | | [facility] | | | CMNT | | | LABORATORY | | | | | | SERVICES, | | | | | | CORE | | + + + + + + | BILI T CMNT | No Hemo | | [facility] | | | | | | LABORATORY | | | | | | SERVICES, | | | | | | CORE | | + + + + + + | AST CMNT | No Hemo | | [facility] | | | | | | LABORATORY | | | | | | SERVICES, | | | | | | CORE | | + + + + + + | ANION GAP | 6 | mmol/L | [facility] | | | | | | LABORATORY | | | | | | SERVICES, | | | | | | CORE | | + + + + + + + + | Specimen | + + | Blood - Blood | + + + + + | Narrative | Performed At | + + + | GFR is estimated using the MDRD equation recommended by the | [facility] | | National Kidney Disease Education Program. Estimated GFR | LABORATORY | | Interpretive Information: <60 mL/min/1.73 sq m | SERVICES, CORE | | Chronic Kidney Disease <15 mL/min/1.73 sq m | | | Kidney Failure Estimated GFR greater that 60 mL/min/1.73 sq m is of | | | limited clinical value. The MDRD equation is not valid in the | | | following situations: - Patients under 18 years of age - Severe | | | malnutrition or obesity - Vegetarian diet - Rapidly changing kidney | | | function New reference range effective 2012 for Total proteins | | | performed in Core Lab only. | | + + + + + + + + | Performing | Address | City/State/Zipcode | Phone Number | | Organization | | | | + + + + + | [facility] | [address] | [place] [address] | | | SERVICES, CORE | [address] | | | + + + + + LIPASE, PLASMA (04/03/2013 3:50 AM PDT) + +---------+ + + + | Component | Value | Ref Range | Performed | Pathologist | | | | | At | Signature | + +---------+ + + + | LIPASE | 816 (H) | 152 - 353 U/L | [facility] | | | (LAB) | | | LABORATORY | | | | | | SERVICES, | | | | | | CORE | | + +---------+ + + + + + | Specimen | + + | Blood - Blood | + + + + + + + | Performing | Address | City/State/Zipcode | Phone Number | | Organization | | | | + + + + + | [facility] | [address] | [place] [address] | | | SERVICES, CORE | [address] | | | + + + + + PHOSPHORUS, PLASMA (04/03/2013 3:50 AM PDT) + +-------+ + + + | Component | Value | Ref Range | Performed | Pathologist | | | | | At | Signature | + +-------+ + + + | PHOSPHORUS, | 3.2 | 2.4 - 4.7 mg/dL | [facility] | | | PLASMA | | | LABORATORY | | | (LAB) | | | SERVICES, | | | | | | CORE | | + +-------+ + + + + + | Specimen | + + | Blood - Blood | + + + + + + + | Performing | Address | City/State/Zipcode | Phone Number | | Organization | | | | + + + + + | [facility] | [address] | [place] [address] | | | SERVICES, CORE | [address] | | | + + + + + MAGNESIUM, PLASMA (04/03/2013 3:50 AM PDT) + +-------+ + + + | Component | Value | Ref Range | Performed | Pathologist | | | | | At | Signature | + +-------+ + + + | MAGNESIUM,P | 2.0 | 1.8 - 2.5 mg/dL | [facility] | | | LASMA | | | LABORATORY | | | | | | SERVICES, | | | | | | [place] | | + +-------+ + + + + + | Specimen | + + | Blood - Blood | + + + + + + + | Performing | Address | City/State/Zipcode | Phone Number | | Organization | | | | + + + + + | [facility] | [address] | [place] [address] | | | SERVICES, CORE | [address] | | | + + + + + BASIC METABOLIC SET (NA, K, CL, TCO2, BUN, CR, GLU, CA) (04/03/2013 3:50 AM PDT) + + + + + + | Component | Value | Ref Range | Performed | Pathologist | | | | | At | Signature | + + + + + + | GLUCOSE, | 101 (H) | 60 - 99 mg/dL | [facility] | | | PLASMA | | | LABORATORY | | | (LAB) | | | SERVICES, | | | | | | CORE | | + + + + + + | BUN, PLASMA | 26 (H) | 6 - 20 mg/dL | [facility] | | | (LAB) | | | LABORATORY | | | | | | SERVICES, | | | | | | CORE | | + + + + + + | CREATININE | 0.49 (L) | 0.60 - 1.10 | [facility] | | | PLASMA | | mg/dL | LABORATORY | | | (LAB) | | | SERVICES, | | | | | | CORE | | + + + + + + | EGFR | >60 | >60 mL/min | [facility] | | | - | | | LABORATORY | | | [place] [facility] | | | SERVICES, | | | | | | CORE | | + + + + + + | EGFR NON | >60 | >60 mL/min | [facility] | | | -BLANKA | | | LABORATORY | | | [facility] | | | SERVICES, | | | | | | CORE | | + + + + + + | SODIUM, | 137 | 136 - 145 | [facility] | | | PLASMA | | mmol/L | LABORATORY | | | (LAB) | | | SERVICES, | | | | | | CORE | | + + + + + + | POTASSIUM, | 4.6 | 3.4 - 5.0 | [facility] | | | PLASMA | | mmol/L | LABORATORY | | | (LAB) | | | SERVICES, | | | | | | CORE | | + + + + + + | CHLORIDE, | 105 | 97 - 108 mmol/L | [facility] | | | PLASMA | | | LABORATORY | | | (LAB) | | | SERVICES, | | | | | | CORE | | + + + + + + | TOTAL CO2, | 26 | 21 - 32 mmol/L | [facility] | | | PLASMA | | | LABORATORY | | | (LAB) | | | SERVICES, | | | | | | CORE | | + + + + + + | CALCIUM, | 8.0 (L) | 8.6 - 10.2 | [facility] | | | PLASMA | | mg/dL | LABORATORY | | | (LAB) | | | SERVICES, | | | | | | CORE | | + + + + + + | ANION GAP | 6 | mmol/L | [facility] | | | | | | LABORATORY | | | | | | SERVICES, | | | | | | CORE | | + + + + + + | POTASSIUM | No Hemo | | [facility] | | | CMNT | | | LABORATORY | | | | | | SERVICES, | | | | | | CORE | | + + + + + + + + | Specimen | + + | Blood - Blood | + + + + + | Narrative | Performed At | + + + | GFR is estimated using the MDRD equation recommended by the | [facility] | | National Kidney Disease Education Program. Estimated GFR | LABORATORY | | Interpretive Information: <60 mL/min/1.73 sq m | SERVICES, CORE | | Chronic Kidney Disease <15 mL/min/1.73 sq m | | | Kidney Failure Estimated GFR greater that 60 mL/min/1.73 sq m is of | | | limited clinical value. The MDRD equation is not valid in the | | | following situations: - Patients under 18 years of age - Severe | | | malnutrition or obesity - Vegetarian diet - Rapidly changing kidney | | | function | | + + + + + + + + | Performing | Address | City/State/Zipcode | Phone Number | | Organization | | | | + + + + + | [facility] | [address] | [place] [address] | | | SERVICES, CORE | [address] | | | + + + + + CAPILLARY BLOOD GLUCOSE (NO CHG), POC (04/02/2013 11:35 PM PDT) + +---------+ + + + | Component | Value | Ref Range | Performed | Pathologist | | | | | At | Signature | + +---------+ + + + | BLOOD | 118 (H) | 60 - 99 mg/dL | [facility] - | | | GLUCOSE, | | | [facility] | | | POC | | | [place] [place] | | | | | | OF CARE | | | | | | TESTS | | + +---------+ + + + + + | Specimen | + + | | + + + + + + + | Performing | Address | City/State/Zipcode | Phone Number | | Organization | | | | + + + + + | [facility] | [address] | [place], [place] | | | [facility] [place] | [facility] | [address] | | | TESTS | | | | + + + + + CAPILLARY BLOOD GLUCOSE (NO CHG), POC (04/02/2013 6:13 PM PDT) + +---------+ + + + | Component | Value | Ref Range | Performed | Pathologist | | | | | At | Signature | + +---------+ + + + | BLOOD | 127 (H) | 60 - 99 mg/dL | [facility] - | | | GLUCOSE, | | | [place] | | | POC | | | [facility] | | | | | | OF CARE | | | | | | TESTS | | + +---------+ + + + + + | Specimen | + + | | + + + + + + + | Performing | Address | City/State/Zipcode | Phone Number | | Organization | | | | + + + + + | [facility] | [address] | [place], [place] | | | [facility] | [address] | [address] | | | TESTS | | | | + + + + + X-RAY ABD LTD FEEDING TUBE EVAL (04/02/2013 3:32 PM PDT) + + + + + + | Component | Value | Ref Range | Performed | Pathologist | | | | | At | Signature | + + + + + + | ABD LTD | HISTORY: Feeding tube | | | | | FEEDING | placement. COMPARISON: | | | | | TUBE EVAL | KUB of 03/31/13. | | | | | | IMPRESSION: The tip of | | | | | | the feeding tube is in | | | | | | the gastric body, | | | | | | pointing inferiorly. | | | | | | Attending Radiologists: | | | | | | ANDREA CALLAWAY, | | | | | | MDAuthor: ANDREA Mc | | | | | | MD CESIA I have | | | | | | personally viewed this | | | | | | procedure/exam, reviewed | | | | | | this report, and | | | | | | madechanges to it where | | | | | | appropriate. | | | | | | Final/Electronically | | | | | | signed / ANDREA Mc | | | | | | CESIA 04/02/2013 16:24 | | | | | | PM | | | | + + + + + + + + | Specimen | + + | | + + + +---------+ + + | Performing | Address | City/State/Zipcode | Phone Number | | Organization | | | | + +---------+ + + | [facility] | | | | | RADIOLOGY | | | | + +---------+ + + CAPILLARY BLOOD GLUCOSE (NO CHG), POC (04/02/2013 1:10 PM PDT) + +---------+ + + + | Component | Value | Ref Range | Performed | Pathologist | | | | | At | Signature | + +---------+ + + + | BLOOD | 140 (H) | 60 - 99 mg/dL | [facility] - | | | GLUCOSE, | | | [facility] | | | POC | | | [facility] | | | | | | OF CARE | | | | | | TESTS | | + +---------+ + + + + + | Specimen | + + | | + + + + + + + | Performing | Address | City/State/Zipcode | Phone Number | | Organization | | | | + + + + + | [facility] | [address] | [place], [place] | | | [facility] [place] | [facility] | [address] | | | TESTS | | | | + + + + + CAPILLARY BLOOD GLUCOSE (NO CHG), POC (04/02/2013 6:23 AM PDT) + +---------+ + + + | Component | Value | Ref Range | Performed | Pathologist | | | | | At | Signature | + +---------+ + + + | BLOOD | 129 (H) | 60 - 99 mg/dL | [facility] - | | | GLUCOSE, | | | [facility] | | | POC | | | [facility] | | | | | | OF CARE | | | | | | TESTS | | + +---------+ + + + + + | Specimen | + + | | + + + + + + + | Performing | Address | City/State/Zipcode | Phone Number | | Organization | | | | + + + + + | [facility] | [address] | [place], [place] | | | [facility] | [address] | [address] | | | TESTS | | | | + + + + + CBC (HEMOGRAM) ONLY (04/02/2013 2:04 AM PDT) + + + + + + | Component | Value | Ref Range | Performed | Pathologist | | | | | At | Signature | + + + + + + | WHITE CELL | 10.74 | 4.40 - 11.00 | [facility] | | | COUNT | | K/cu mm | LABORATORY | | | | | | SERVICES, | | | | | | CORE | | + + + + + + | RED CELL | 3.43 (L) | 4.00 - 5.20 | [facility] | | | COUNT | | M/cu mm | LABORATORY | | | | | | SERVICES, | | | | | | CORE | | + + + + + + | HEMOGLOBIN | 10.4 (L) | 12.0 - 16.0 | [facility] | | | | | g/dL | LABORATORY | | | | | | SERVICES, | | | | | | CORE | | + + + + + + | HEMATOCRIT | 32.6 (L) | 36.0 - 46.0 % | [facility] | | | | | | LABORATORY | | | | | | SERVICES, | | | | | | CORE | | + + + + + + | MCV | 95.0 | 80.0 - 96.0 fL | [facility] | | | | | | LABORATORY | | | | | | SERVICES, | | | | | | CORE | | + + + + + + | MCHC | 31.9 (L) | 33.0 - 35.5 | [facility] | | | | | g/dL | LABORATORY | | | | | | SERVICES, | | | | | | CORE | | + + + + + + | RDW SD | 48.2 (H) | 35.1 - 46.3 fL | [facility] | | | | | | LABORATORY | | | | | | SERVICES, | | | | | | CORE | | + + + + + + | PLATELET | 358 | 150 - 400 K/cu | [facility] | | | COUNT | | mm | LABORATORY | | | | | | SERVICES, | | | | | | CORE | | + + + + + + | MPV | 10.0 | 9.7 - 12.3 fL | [facility] | | | | | | LABORATORY | | | | | | SERVICES, | | | | | | CORE | | + + + + + + | NRBC% | 0.0 | 0.0 - 0.3 % | [facility] | | | | | | LABORATORY | | | | | | SERVICES, | | | | | | CORE | | + + + + + + | NRBC# | 0.00 | 0.00 - 0.02 | [facility] | | | | | K/cu mm | LABORATORY | | | | | | SERVICES, | | | | | | CORE | | + + + + + + + + | Specimen | + + | Blood - Blood | + + + + + | Narrative | Performed At | + + + | New methodology and reference ranges for some CBC/Differential | [facility] | | analytes in effect on 02/27/13. | LABORATORY | | | SERVICES, CORE | + + + + + + + + | Performing | Address | City/State/Zipcode | Phone Number | | Organization | | | | + + + + + | [facility] | [address] | [place] [address] | | | SERVICES, CORE | [address] | | | + + + + + COMPLETE METABOLIC SET (NA,K,CL,CO2,BUN,CREAT,GLUC,CA,AST,ALT,BILI TOTAL,ALK PHOS,ALB,PROT TOTAL) (04/02/2013 2:04 AM PDT) + + + + + + | Component | Value | Ref Range | Performed | Pathologist | | | | | At | Signature | + + + + + + | GLUCOSE, | 118 (H) | 60 - 99 mg/dL | [facility] | | | PLASMA | | | LABORATORY | | | (LAB) | | | SERVICES, | | | | | | CORE | | + + + + + + | BUN, PLASMA | 27 (H) | 6 - 20 mg/dL | [facility] | | | (LAB) | | | LABORATORY | | | | | | SERVICES, | | | | | | CORE | | + + + + + + | CREATININE | 0.55 (L) | 0.60 - 1.10 | [facility] | | | PLASMA | | mg/dL | LABORATORY | | | (LAB) | | | SERVICES, | | | | | | CORE | | + + + + + + | EGFR | >60 | >60 mL/min | [facility] | | | - | | | LABORATORY | | | [place] | | | SERVICES, | | | | | | CORE | | + + + + + + | EGFR NON | >60 | >60 mL/min | [facility] | | | -[facility]ANKA | | | LABORATORY | | | [facility] | | | SERVICES, | | | | | | CORE | | + + + + + + | SODIUM, | 141 | 136 - 145 | [facility] | | | PLASMA | | mmol/L | LABORATORY | | | (LAB) | | | SERVICES, | | | | | | CORE | | + + + + + + | POTASSIUM, | 4.4 | 3.4 - 5.0 | [facility] | | | PLASMA | | mmol/L | LABORATORY | | | (LAB) | | | SERVICES, | | | | | | CORE | | + + + + + + | CHLORIDE, | 106 | 97 - 108 mmol/L | [facility] | | | PLASMA | | | LABORATORY | | | (LAB) | | | SERVICES, | | | | | | CORE | | + + + + + + | TOTAL CO2, | 28 | 21 - 32 mmol/L | [facility] | | | PLASMA | | | LABORATORY | | | (LAB) | | | SERVICES, | | | | | | CORE | | + + + + + + | CALCIUM, | 8.1 (L) | 8.6 - 10.2 | [facility] | | | PLASMA | | mg/dL | LABORATORY | | | (LAB) | | | SERVICES, | | | | | | CORE | | + + + + + + | BILIRUBIN | 0.2 (L) | 0.3 - 1.2 mg/dL | [facility] | | | TOTAL | | | LABORATORY | | | | | | SERVICES, | | | | | | CORE | | + + + + + + | TOTAL | 5.8 (L) | 6.4 - 8.2 g/dL | [facility] | | | PROTEIN, | | | LABORATORY | | | PLASMA | | | SERVICES, | | | (LAB) | | | CORE | | + + + + + + | ALBUMIN, | 2.3 (L) | 3.5 - 4.7 g/dL | [facility] | | | PLASMA | | | LABORATORY | | | (LAB) | | | SERVICES, | | | | | | CORE | | + + + + + + | ALK PHOS | 65 | 53 - 141 U/L | [facility] | | | | | | LABORATORY | | | | | | SERVICES, | | | | | | CORE | | + + + + + + | AST(SGOT) | 26 | 15 - 41 U/L | [facility] | | | | | | LABORATORY | | | | | | SERVICES, | | | | | | CORE | | + + + + + + | ALT (SGPT) | 11 (L) | 12 - 60 U/L | [facility] | | | | | | LABORATORY | | | | | | SERVICES, | | | | | | CORE | | + + + + + + | ANION | 11 | 4 - 11 mmol/L | [facility] | | | GAP(ALB | | | LABORATORY | | | CORRECTED) | | | SERVICES, | | | | | | CORE | | + + + + + + | POTASSIUM | No Hemo | | [facility] | | | CMNT | | | LABORATORY | | | | | | SERVICES, | | | | | | CORE | | + + + + + + | BILI T CMNT | No Hemo | | [facility] | | | | | | LABORATORY | | | | | | SERVICES, | | | | | | CORE | | + + + + + + | AST CMNT | No Hemo | | [facility] | | | | | | LABORATORY | | | | | | SERVICES, | | | | | | CORE | | + + + + + + | ANION GAP | 7 | mmol/L | [facility] | | | | | | LABORATORY | | | | | | SERVICES, | | | | | | CORE | | + + + + + + + + | Specimen | + + | Blood - Blood | + + + + + | Narrative | Performed At | + + + | GFR is estimated using the MDRD equation recommended by the | [facility] | | National Kidney Disease Education Program. Estimated GFR | LABORATORY | | Interpretive Information: <60 mL/min/1.73 sq m | SERVICES, CORE | | Chronic Kidney Disease <15 mL/min/1.73 sq m | | | Kidney Failure Estimated GFR greater that 60 mL/min/1.73 sq m is of | | | limited clinical value. The MDRD equation is not valid in the | | | following situations: - Patients under 18 years of age - Severe | | | malnutrition or obesity - Vegetarian diet - Rapidly changing kidney | | | function New reference range effective 2012 for Total proteins | | | performed in Core Lab only. | | + + + + + + + + | Performing | Address | City/State/Zipcode | Phone Number | | Organization | | | | + + + + + | [facility] | [address] | [place] [address] | | | SERVICES, [facility] | [address] | | | + + + + + LIPASE, PLASMA (04/02/2013 2:04 AM PDT) + +---------+ + + + | Component | Value | Ref Range | Performed | Pathologist | | | | | At | Signature | + +---------+ + + + | LIPASE | 743 (H) | 152 - 353 U/L | [facility] | | | (LAB) | | | LABORATORY | | | | | | SERVICES, | | | | | | CORE | | + +---------+ + + + + + | Specimen | + + | Blood - Blood | + + + + + + + | Performing | Address | City/State/Zipcode | Phone Number | | Organization | | | | + + + + + | [facility] | [address] | [place] [address] | | | SERVICES, CORE | [address] | | | + + + + + PHOSPHORUS, PLASMA (04/02/2013 2:04 AM PDT) + +-------+ + + + | Component | Value | Ref Range | Performed | Pathologist | | | | | At | Signature | + +-------+ + + + | PHOSPHORUS, | 3.2 | 2.4 - 4.7 mg/dL | [facility] | | | PLASMA | | | LABORATORY | | | (LAB) | | | SERVICES, | | | | | | CORE | | + +-------+ + + + + + | Specimen | + + | Blood - Blood | + + + + + + + | Performing | Address | City/State/Zipcode | Phone Number | | Organization | | | | + + + + + | [facility] | [address] | [place] [address] | | | SERVICES, CORE | [address] | | | + + + + + MAGNESIUM, PLASMA (04/02/2013 2:04 AM PDT) + +-------+ + + + | Component | Value | Ref Range | Performed | Pathologist | | | | | At | Signature | + +-------+ + + + | MAGNESIUM,P | 2.2 | 1.8 - 2.5 mg/dL | [facility] | | | LASMA | | | LABORATORY | | | | | | SERVICES, | | | | | | CORE | | + +-------+ + + + + + | Specimen | + + | Blood - Blood | + + + + + + + | Performing | Address | City/State/Zipcode | Phone Number | | Organization | | | | + + + + + | [facility] | [address] | [place] [address] | | | SERVICES, CORE | [address] | | | + + + + + BASIC METABOLIC SET (NA, K, CL, TCO2, BUN, CR, GLU, CA) (04/02/2013 2:04 AM PDT) + + + + + + | Component | Value | Ref Range | Performed | Pathologist | | | | | At | Signature | + + + + + + | GLUCOSE, | 118 (H) | 60 - 99 mg/dL | [facility] | | | PLASMA | | | LABORATORY | | | (LAB) | | | SERVICES, | | | | | | CORE | | + + + + + + | BUN, PLASMA | 27 (H) | 6 - 20 mg/dL | [facility] | | | (LAB) | | | LABORATORY | | | | | | SERVICES, | | | | | | CORE | | + + + + + + | CREATININE | 0.55 (L) | 0.60 - 1.10 | [facility] | | | PLASMA | | mg/dL | LABORATORY | | | (LAB) | | | SERVICES, | | | | | | CORE | | + + + + + + | EGFR | >60 | >60 mL/min | [facility] | | | - | | | LABORATORY | | | [place] | | | SERVICES, | | | | | | CORE | | + + + + + + | EGFR NON | >60 | >60 mL/min | [facility] | | | -[facility] | | | LABORATORY | | | [facility] | | | SERVICES, | | | | | | CORE | | + + + + + + | SODIUM, | 141 | 136 - 145 | [facility] | | | PLASMA | | mmol/L | LABORATORY | | | (LAB) | | | SERVICES, | | | | | | CORE | | + + + + + + | POTASSIUM, | 4.4 | 3.4 - 5.0 | [facility] | | | PLASMA | | mmol/L | LABORATORY | | | (LAB) | | | SERVICES, | | | | | | CORE | | + + + + + + | CHLORIDE, | 106 | 97 - 108 mmol/L | [facility] | | | PLASMA | | | LABORATORY | | | (LAB) | | | SERVICES, | | | | | | CORE | | + + + + + + | TOTAL CO2, | 28 | 21 - 32 mmol/L | [facility] | | | PLASMA | | | LABORATORY | | | (LAB) | | | SERVICES, | | | | | | CORE | | + + + + + + | CALCIUM, | 8.1 (L) | 8.6 - 10.2 | [facility] | | | PLASMA | | mg/dL | LABORATORY | | | (LAB) | | | SERVICES, | | | | | | CORE | | + + + + + + | ANION GAP | 7 | mmol/L | [facility] | | | | | | LABORATORY | | | | | | SERVICES, | | | | | | CORE | | + + + + + + | POTASSIUM | No Hemo | | [facility] | | | [facility] | | | LABORATORY | | | | | | SERVICES, | | | | | | CORE | | + + + + + + + + | Specimen | + + | Blood - Blood | + + + + + | Narrative | Performed At | + + + | GFR is estimated using the MDRD equation recommended by the | [facility] | | National Kidney Disease Education Program. Estimated GFR | LABORATORY | | Interpretive Information: <60 mL/min/1.73 sq m | SERVICES, CORE | | Chronic Kidney Disease <15 mL/min/1.73 sq m | | | Kidney Failure Estimated GFR greater that 60 mL/min/1.73 sq m is of | | | limited clinical value. The MDRD equation is not valid in the | | | following situations: - Patients under 18 years of age - Severe | | | malnutrition or obesity - Vegetarian diet - Rapidly changing kidney | | | function | | + + + + + + + + | Performing | Address | City/State/Zipcode | Phone Number | | Organization | | | | + + + + + | [facility] | [address] | [place] [address] | | | SERVICES, CORE | [address] | | | + + + + + CAPILLARY BLOOD GLUCOSE (NO CHG), POC (04/01/2013 6:52 PM PDT) + +---------+ + + + | Component | Value | Ref Range | Performed | Pathologist | | | | | At | Signature | + +---------+ + + + | BLOOD | 132 (H) | 60 - 99 mg/dL | [facility] | | | GLUCOSE, | | | [facility] | | | POC | | | [facility] | | | | | | OF CARE | | | | | | TESTS | | + +---------+ + + + + + | Specimen | + + | | + + + + + + + | Performing | Address | City/State/Zipcode | Phone Number | | Organization | | | | + + + + + | [facility] | [address] | [place], [place] | | | [facility] | [address] | [address] | | | TESTS | | | | + + + + + CAPILLARY BLOOD GLUCOSE (NO CHG), POC (04/01/2013 12:47 PM PDT) + +---------+ + + + | Component | Value | Ref Range | Performed | Pathologist | | | | | At | Signature | + +---------+ + + + | BLOOD | 161 (H) | 60 - 99 mg/dL | [facility] - | | | GLUCOSE, | | | [place] | | | POC | | | [facility] | | | | | | OF CARE | | | | | | TESTS | | + +---------+ + + + + + | Specimen | + + | | + + + + + + + | Performing | Address | City/State/Zipcode | Phone Number | | Organization | | | | + + + + + | [facility] | [address] | [place], [place] | | | [facility] | [facility] | [address] | | | TESTS | | | | + + + + + CAPILLARY BLOOD GLUCOSE (NO CHG), POC (04/01/2013 6:50 AM PDT) + +---------+ + + + | Component | Value | Ref Range | Performed | Pathologist | | | | | At | Signature | + +---------+ + + + | BLOOD | 159 (H) | 60 - 99 mg/dL | [facility] | | | GLUCOSE, | | | [facility] | | | POC | | | [facility] | | | | | | OF CARE | | | | | | TESTS | | + +---------+ + + + + + | Specimen | + + | | + + + + + + + | Performing | Address | City/State/Zipcode | Phone Number | | Organization | | | | + + + + + | [facility] | [address] | [place], [place] | | | [facility], POINT OF CARE | [address] | [address] | | | TESTS | | | | + + + + + COMPLETE METABOLIC SET (NA,K,CL,CO2,BUN,CREAT,GLUC,CA,AST,ALT,BILI TOTAL,ALK PHOS,ALB,PROT TOTAL) (04/01/2013 5:28 AM PDT) + + + + + + | Component | Value | Ref Range | Performed | Pathologist | | | | | At | Signature | + + + + + + | GLUCOSE, | 111 (H) | 60 - 99 mg/dL | [facility] | | | PLASMA | | | LABORATORY | | | (LAB) | | | SERVICES, | | | | | | CORE | | + + + + + + | BUN, PLASMA | 26 (H) | 6 - 20 mg/dL | [facility] | | | (LAB) | | | LABORATORY | | | | | | SERVICES, | | | | | | CORE | | + + + + + + | CREATININE | 0.56 (L) | 0.60 - 1.10 | [facility] | | | PLASMA | | mg/dL | LABORATORY | | | (LAB) | | | SERVICES, | | | | | | CORE | | + + + + + + | EGFR | >60 | >60 mL/min | [facility] | | | - | | | LABORATORY | | | [place] [facility] | | | SERVICES, | | | | | | CORE | | + + + + + + | EGFR NON | >60 | >60 mL/min | [facility] | | | -[facility] | | | LABORATORY | | | [facility] | | | SERVICES, | | | | | | CORE | | + + + + + + | SODIUM, | 138 | 136 - 145 | [facility] | | | PLASMA | | mmol/L | LABORATORY | | | (LAB) | | | SERVICES, | | | | | | CORE | | + + + + + + | POTASSIUM, | 4.1 | 3.4 - 5.0 | [facility] | | | PLASMA | | mmol/L | LABORATORY | | | (LAB) | | | SERVICES, | | | | | | CORE | | + + + + + + | CHLORIDE, | 101 | 97 - 108 mmol/L | [facility] | | | PLASMA | | | LABORATORY | | | (LAB) | | | SERVICES, | | | | | | CORE | | + + + + + + | TOTAL CO2, | 30 | 21 - 32 mmol/L | [facility] | | | PLASMA | | | LABORATORY | | | (LAB) | | | SERVICES, | | | | | | CORE | | + + + + + + | CALCIUM, | 7.8 (L) | 8.6 - 10.2 | [facility] | | | PLASMA | | mg/dL | LABORATORY | | | (LAB) | | | SERVICES, | | | | | | CORE | | + + + + + + | BILIRUBIN | 0.2 (L) | 0.3 - 1.2 mg/dL | [facility] | | | TOTAL | | | LABORATORY | | | | | | SERVICES, | | | | | | CORE | | + + + + + + | TOTAL | 5.3 (L) | 6.4 - 8.2 g/dL | [facility] | | | PROTEIN, | | | LABORATORY | | | PLASMA | | | SERVICES, | | | (LAB) | | | CORE | | + + + + + + | ALBUMIN, | 2.1 (L) | 3.5 - 4.7 g/dL | [facility] | | | PLASMA | | | LABORATORY | | | (LAB) | | | SERVICES, | | | | | | CORE | | + + + + + + | ALK PHOS | 47 (L) | 53 - 141 U/L | [facility] | | | | | | LABORATORY | | | | | | SERVICES, | | | | | | CORE | | + + + + + + | AST(SGOT) | 20 | 15 - 41 U/L | [facility] | | | | | | LABORATORY | | | | | | SERVICES, | | | | | | CORE | | + + + + + + | ALT (SGPT) | 11 (L) | 12 - 60 U/L | [facility] | | | | | | LABORATORY | | | | | | SERVICES, | | | | | | CORE | | + + + + + + | ANION | 11 | 4 - 11 mmol/L | [facility] | | | GAP(ALB | | | LABORATORY | | | CORRECTED) | | | SERVICES, | | | | | | CORE | | + + + + + + | POTASSIUM | No Hemo | | [facility] | | | CMNT | | | LABORATORY | | | | | | SERVICES, | | | | | | CORE | | + + + + + + | BILI T CMNT | No Hemo | | [facility] | | | | | | LABORATORY | | | | | | SERVICES, | | | | | | CORE | | + + + + + + | AST CMNT | No Hemo | | [facility] | | | | | | LABORATORY | | | | | | SERVICES, | | | | | | CORE | | + + + + + + | ANION GAP | 7 | mmol/L | [facility] | | | | | | LABORATORY | | | | | | SERVICES, | | | | | | CORE | | + + + + + + + + | Specimen | + + | Blood - Blood | + + + + + | Narrative | Performed At | + + + | GFR is estimated using the MDRD equation recommended by the | [facility] | | National Kidney Disease Education Program. Estimated GFR | LABORATORY | | Interpretive Information: <60 mL/min/1.73 sq m | SERVICES, CORE | | Chronic Kidney Disease <15 mL/min/1.73 sq m | | | Kidney Failure Estimated GFR greater that 60 mL/min/1.73 sq m is of | | | limited clinical value. The MDRD equation is not valid in the | | | following situations: - Patients under 18 years of age - Severe | | | malnutrition or obesity - Vegetarian diet - Rapidly changing kidney | | | function New reference range effective 2012 for Total proteins | | | performed in Core Lab only. | | + + + + + + + + | Performing | Address | City/State/Zipcode | Phone Number | | Organization | | | | + + + + + | [facility] | [address] | [place] [address] | | | SERVICES, CORE | [address] | | | + + + + + CBC (HEMOGRAM) ONLY (04/01/2013 2:13 AM PDT) + + + + + + | Component | Value | Ref Range | Performed | Pathologist | | | | | At | Signature | + + + + + + | WHITE CELL | 11.59 (H) | 4.40 - 11.00 | [facility] | | | COUNT | | K/cu mm | LABORATORY | | | | | | SERVICES, | | | | | | CORE | | + + + + + + | RED CELL | 3.36 (L) | 4.00 - 5.20 | [facility] | | | COUNT | | M/cu mm | LABORATORY | | | | | | SERVICES, | | | | | | CORE | | + + + + + + | HEMOGLOBIN | 9.8 (L) | 12.0 - 16.0 | [facility] | | | | | g/dL | LABORATORY | | | | | | SERVICES, | | | | | | CORE | | + + + + + + | HEMATOCRIT | 31.6 (L) | 36.0 - 46.0 % | [facility] | | | | | | LABORATORY | | | | | | SERVICES, | | | | | | CORE | | + + + + + + | MCV | 94.0 | 80.0 - 96.0 fL | [facility] | | | | | | LABORATORY | | | | | | SERVICES, | | | | | | CORE | | + + + + + + | MCHC | 31.0 (L) | 33.0 - 35.5 | [facility] | | | | | g/dL | LABORATORY | | | | | | SERVICES, | | | | | | CORE | | + + + + + + | RDW SD | 46.6 (H) | 35.1 - 46.3 fL | [facility] | | | | | | LABORATORY | | | | | | SERVICES, | | | | | | CORE | | + + + + + + | PLATELET | 335 | 150 - 400 K/cu | [facility] | | | COUNT | | mm | LABORATORY | | | | | | SERVICES, | | | | | | CORE | | + + + + + + | MPV | 9.8 | 9.7 - 12.3 fL | [facility] | | | | | | LABORATORY | | | | | | SERVICES, | | | | | | CORE | | + + + + + + | NRBC% | 0.0 | 0.0 - 0.3 % | [facility] | | | | | | LABORATORY | | | | | | SERVICES, | | | | | | CORE | | + + + + + + | NRBC# | 0.00 | 0.00 - 0.02 | [facility] | | | | | K/cu mm | LABORATORY | | | | | | SERVICES, | | | | | | CORE | | + + + + + + + + | Specimen | + + | Blood - Blood | + + + + + | Narrative | Performed At | + + + | New methodology and reference ranges for some CBC/Differential | [facility] | | analytes in effect on 02/27/13. | LABORATORY | | | [facility] | + + + + + + + + | Performing | Address | City/State/Zipcode | Phone Number | | Organization | | | | + + + + + | [facility] | [address] | [place] [address] | | | SERVICES, CORE | [address] | | | + + + + + LIPASE, PLASMA (04/01/2013 2:13 AM PDT) + +---------+ + + + | Component | Value | Ref Range | Performed | Pathologist | | | | | At | Signature | + +---------+ + + + | LIPASE | 766 (H) | 152 - 353 U/L | [facility] | | | (LAB) | | | LABORATORY | | | | | | SERVICES, | | | | | | CORE | | + +---------+ + + + + + | Specimen | + + | Blood - Blood | + + + + + + + | Performing | Address | City/State/Zipcode | Phone Number | | Organization | | | | + + + + + | [facility] | [address] | [place] [address] | | | SERVICES, CORE | [address] | | | + + + + + PHOSPHORUS, PLASMA (04/01/2013 2:13 AM PDT) + +-------+ + + + | Component | Value | Ref Range | Performed | Pathologist | | | | | At | Signature | + +-------+ + + + | PHOSPHORUS, | 3.9 | 2.4 - 4.7 mg/dL | [facility] | | | PLASMA | | | LABORATORY | | | (LAB) | | | SERVICES, | | | | | | CORE | | + +-------+ + + + + + | Specimen | + + | Blood - Blood | + + + + + + + | Performing | Address | City/State/Zipcode | Phone Number | | Organization | | | | + + + + + | [facility] | [address] | [place] [address] | | | SERVICES, CORE | [address] | | | + + + + + MAGNESIUM, PLASMA (04/01/2013 2:13 AM PDT) + +-------+ + + + | Component | Value | Ref Range | Performed | Pathologist | | | | | At | Signature | + +-------+ + + + | MAGNESIUM,P | 2.1 | 1.8 - 2.5 mg/dL | [facility] | | | LASMA | | | LABORATORY | | | | | | SERVICES, | | | | | | CORE | | + +-------+ + + + + + | Specimen | + + | Blood - Blood | + + + + + + + | Performing | Address | City/State/Zipcode | Phone Number | | Organization | | | | + + + + + | [facility] | [address] | [place] [address] | | | SERVICES, CORE | [address] | | | + + + + + BASIC METABOLIC SET (NA, K, CL, TCO2, BUN, CR, GLU, CA) (04/01/2013 2:13 AM PDT) + + + + + + | Component | Value | Ref Range | Performed | Pathologist | | | | | At | Signature | + + + + + + | GLUCOSE, | 118 (H) | 60 - 99 mg/dL | [facility] | | | PLASMA | | | LABORATORY | | | (LAB) | | | SERVICES, | | | | | | CORE | | + + + + + + | BUN, PLASMA | 26 (H) | 6 - 20 mg/dL | [facility] | | | (LAB) | | | LABORATORY | | | | | | SERVICES, | | | | | | CORE | | + + + + + + | CREATININE | 0.58 (L) | 0.60 - 1.10 | [facility] | | | PLASMA | | mg/dL | LABORATORY | | | (LAB) | | | SERVICES, | | | | | | CORE | | + + + + + + | EGFR | >60 | >60 mL/min | [facility] | | | - | | | LABORATORY | | | [place] | | | SERVICES, | | | | | | CORE | | + + + + + + | EGFR NON | >60 | >60 mL/min | [facility] | | | -[facility] | | | LABORATORY | | | [facility] | | | SERVICES, | | | | | | CORE | | + + + + + + | SODIUM, | 136 | 136 - 145 | [facility] | | | PLASMA | | mmol/L | LABORATORY | | | (LAB) | | | SERVICES, | | | | | | CORE | | + + + + + + | POTASSIUM, | 4.0 | 3.4 - 5.0 | [facility] | | | PLASMA | | mmol/L | LABORATORY | | | (LAB) | | | SERVICES, | | | | | | CORE | | + + + + + + | CHLORIDE, | 100 | 97 - 108 mmol/L | [facility] | | | PLASMA | | | LABORATORY | | | (LAB) | | | SERVICES, | | | | | | CORE | | + + + + + + | TOTAL CO2, | 30 | 21 - 32 mmol/L | [facility] | | | PLASMA | | | LABORATORY | | | (LAB) | | | SERVICES, | | | | | | CORE | | + + + + + + | CALCIUM, | 7.7 (L) | 8.6 - 10.2 | [facility] | | | PLASMA | | mg/dL | LABORATORY | | | (LAB) | | | SERVICES, | | | | | | CORE | | + + + + + + | ANION GAP | 6 | mmol/L | [facility] | | | | | | LABORATORY | | | | | | SERVICES, | | | | | | CORE | | + + + + + + | POTASSIUM | No Hemo | | [facility] | | | CMNT | | | LABORATORY | | | | | | SERVICES, | | | | | | CORE | | + + + + + + + + | Specimen | + + | Blood - Blood | + + + + + | Narrative | Performed At | + + + | GFR is estimated using the MDRD equation recommended by the | [facility] | | National Kidney Disease Education Program. Estimated GFR | LABORATORY | | Interpretive Information: <60 mL/min/1.73 sq m | SERVICES, CORE | | Chronic Kidney Disease <15 mL/min/1.73 sq m | | | Kidney Failure Estimated GFR greater that 60 mL/min/1.73 sq m is of | | | limited clinical value. The MDRD equation is not valid in the | | | following situations: - Patients under 18 years of age - Severe | | | malnutrition or obesity - Vegetarian diet - Rapidly changing kidney | | | function | | + + + + + + + + | Performing | Address | City/State/Zipcode | Phone Number | | Organization | | | | + + + + + | [facility] | [address] | [place] [address] | | | SERVICES, [place] | [address] | | | + + + + + LIPID SET (TRIG, T CHOL, HDL, CALC LDL) (04/01/2013 2:13 AM PDT) + +---------+ + + + | Component | Value | Ref Range | Performed | Pathologist | | | | | At | Signature | + +---------+ + + + | CHOLESTEROL | 103 | <200 mg/dL | [facility] | | | (LAB) | | | LABORATORY | | | | | | SERVICES, | | | | | | CORE | | + +---------+ + + + | TRIGLYCERID | 102 | <150 mg/dL | [facility] | | | ES | | | LABORATORY | | | | | | SERVICES, | | | | | | CORE | | + +---------+ + + + | HDL | 21 (L) | >40 mg/dL | [facility] | | | CHOLESTEROL | | | LABORATORY | | | | | | SERVICES, | | | | | | CORE | | + +---------+ + + + | HDL CMNT | No Hemo | | [facility] | | | | | | LABORATORY | | | | | | SERVICES, | | | | | | CORE | | + +---------+ + + + | LDL | 62 | <100 mg/dL | [facility] | | | CHOLESTEROL | | | LABORATORY | | | , | | | SERVICES, | | | CALCULATED | | | CORE | | + +---------+ + + + | VLDL | 20 | <31 mg/dL | [facility] | | | CHOLESTEROL | | | LABORATORY | | | , | | | SERVICES, | | | CALCULATED | | | CORE | | + +---------+ + + + | NON-HDL | 82 | <130 mg/dL | [facility] | | | CHOLESTEROL | | | LABORATORY | | | | | | SERVICES, | | | | | | CORE | | + +---------+ + + + + + | Specimen | + + | Blood - Blood | + + + + + | Narrative | Performed At | + + + | Cholesterol Reference Range: Desirable: <200 | [facility] | | mg/dL Borderline High: 200 - 239 mg/dL | LABORATORY | | High: >=240 mg/dL LDL Cholesterol | SERVICES, CORE | | Reference Range: Optimal: <100 mg/dL | | | Near Optimal: 100-129 mg/dL Borderline High: 130-159 | | | mg/dL High: 160-189 mg/dL | | | Very High: >=190 mg/dL non-HDL Cholesterol Reference Range: | | | Optimal: <130 mg/dL Near Optimal: | | | 130-159 mg/dL Borderline High: 160-189 mg/dL | | | High: 190-209 mg/dL Very High: | | | >=210 mg/dL Triglyceride Reference Range: | | | Normal: <150 mg/dL Borderline High: 150-199 mg/dL | | | High: 200-499 mg/dL Very High: >=500 mg/dL | | | HDL Reference Range: High Risk: <40 mg/dL | | | Desirable: >=60 mg/dL | | + + + + + + + + | Performing | Address | City/State/Zipcode | Phone Number | | Organization | | | | + + + + + | [facility] | [address] | [place] [address] | | | SERVICES, CORE | [address] | | | + + + + + CBC (HEMOGRAM) ONLY (04/01/2013 12:36 AM PDT) + + + + + + | Component | Value | Ref Range | Performed | Pathologist | | | | | At | Signature | + + + + + + | WHITE CELL | 11.24 (H) | 4.40 - 11.00 | [facility] | | | COUNT | | K/cu mm | LABORATORY | | | | | | SERVICES, | | | | | | CORE | | + + + + + + | RED CELL | 3.25 (L) | 4.00 - 5.20 | [facility] | | | COUNT | | M/cu mm | LABORATORY | | | | | | SERVICES, | | | | | | CORE | | + + + + + + | HEMOGLOBIN | 9.9 (L) | 12.0 - 16.0 | [facility] | | | | | g/dL | LABORATORY | | | | | | SERVICES, | | | | | | CORE | | + + + + + + | HEMATOCRIT | 31.1 (L) | 36.0 - 46.0 % | [facility] | | | | | | LABORATORY | | | | | | SERVICES, | | | | | | CORE | | + + + + + + | MCV | 95.7 | 80.0 - 96.0 fL | [facility] | | | | | | LABORATORY | | | | | | SERVICES, | | | | | | CORE | | + + + + + + | MCHC | 31.8 (L) | 33.0 - 35.5 | [facility] | | | | | g/dL | LABORATORY | | | | | | SERVICES, | | | | | | CORE | | + + + + + + | RDW SD | 46.8 (H) | 35.1 - 46.3 fL | [facility] | | | | | | LABORATORY | | | | | | SERVICES, | | | | | | CORE | | + + + + + + | PLATELET | 329 | 150 - 400 K/cu | [facility] | | | COUNT | | mm | LABORATORY | | | | | | SERVICES, | | | | | | CORE | | + + + + + + | MPV | 10.1 | 9.7 - 12.3 fL | [facility] | | | | | | LABORATORY | | | | | | SERVICES, | | | | | | CORE | | + + + + + + | NRBC% | 0.0 | 0.0 - 0.3 % | [facility] | | | | | | LABORATORY | | | | | | SERVICES, | | | | | | CORE | | + + + + + + | NRBC# | 0.00 | 0.00 - 0.02 | [facility] | | | | | K/cu mm | LABORATORY | | | | | | SERVICES, | | | | | | CORE | | + + + + + + + + | Specimen | + + | Blood - Blood | + + + + + | Narrative | Performed At | + + + | New methodology and reference ranges for some CBC/Differential | [facility] | | analytes in effect on 02/27/13. | LABORATORY | | | SERVICES, CORE | + + + + + + + + | Performing | Address | City/State/Zipcode | Phone Number | | Organization | | | | + + + + + | [facility] | [address] | [place] [address] | | | SERVICES, CORE | [address] | | | + + + + + LACTIC ACID (04/01/2013 12:36 AM PDT) + +-------+ + + + | Component | Value | Ref Range | Performed | Pathologist | | | | | At | Signature | + +-------+ + + + | LACTATE | 0.7 | mmol/L | [facility] | | | | | | LABORATORY | | | | | | SERVICES, | | | | | | CORE | | + +-------+ + + + + + | Specimen | + + | Blood - Blood | + + + + + | Narrative | Performed At | + + + | Reference Range: Venous blood: 0.5 - 2.2 mmol/L | [facility] | | Arterial blood: 0.5 - 1.6 mmol/L | LABORATORY | | | SERVICES, CORE | + + + + + + + + | Performing | Address | City/State/Zipcode | Phone Number | | Organization | | | | + + + + + | [facility] | [address] | [place] [address] | | | SERVICES, CORE | [address] | | | + + + + + CAPILLARY BLOOD GLUCOSE (NO CHG), POC (04/01/2013 12:31 AM PDT) + +---------+ + + + | Component | Value | Ref Range | Performed | Pathologist | | | | | At | Signature | + +---------+ + + + | BLOOD | 131 (H) | 60 - 99 mg/dL | [facility] - | | | GLUCOSE, | | | [facility] | | | POC | | | [facility] | | | | | | OF CARE | | | | | | TESTS | | + +---------+ + + + + + | Specimen | + + | | + + + + + + + | Performing | Address | City/State/Zipcode | Phone Number | | Organization | | | | + + + + + | [facility] | [address] | [place], [place] | | | [facility] CARE | [address] | [address] | | | TESTS | | | | + + + + + MAGNESIUM, PLASMA (03/31/2013 10:19 PM PDT) + +-------+ + + + | Component | Value | Ref Range | Performed | Pathologist | | | | | At | Signature | + +-------+ + + + | MAGNESIUM,P | 2.2 | 1.8 - 2.5 mg/dL | [facility] | | | LASMA | | | LABORATORY | | | | | | SERVICES, | | | | | | CORE | | + +-------+ + + + + + | Specimen | + + | Blood - Blood | + + + + + + + | Performing | Address | City/State/Zipcode | Phone Number | | Organization | | | | + + + + + | [facility] | [address] | [place] [address] | | | SERVICES, CORE | [address] | | | + + + + + RENAL FUNCTION SET (NA,K,CL,CO2,BUN,CREAT,GLUC,CA,PHOS,ALB ) (03/31/2013 10:19 PM PDT) + +---------+ + + + | Component | Value | Ref Range | Performed | Pathologist | | | | | At | Signature | + +---------+ + + + | GLUCOSE, | 91 | 60 - 99 mg/dL | [facility] | | | PLASMA | | | LABORATORY | | | (LAB) | | | SERVICES, | | | | | | CORE | | + +---------+ + + + | BUN, PLASMA | 27 (H) | 6 - 20 mg/dL | [facility] | | | (LAB) | | | LABORATORY | | | | | | SERVICES, | | | | | | CORE | | + +---------+ + + + | CREATININE | 0.65 | 0.60 - 1.10 | [facility] | | | PLASMA | | mg/dL | LABORATORY | | | (LAB) | | | SERVICES, | | | | | | CORE | | + +---------+ + + + | EGFR | >60 | >60 mL/min | [facility] | | | - | | | LABORATORY | | | [place] | | | SERVICES, | | | | | | CORE | | + +---------+ + + + | EGFR NON | >60 | >60 mL/min | [facility] | | | -[facility] | | | LABORATORY | | | [facility] | | | SERVICES, | | | | | | CORE | | + +---------+ + + + | SODIUM, | 137 | 136 - 145 | [facility] | | | PLASMA | | mmol/L | LABORATORY | | | (LAB) | | | SERVICES, | | | | | | CORE | | + +---------+ + + + | POTASSIUM, | 4.0 | 3.4 - 5.0 | [facility] | | | PLASMA | | mmol/L | LABORATORY | | | (LAB) | | | SERVICES, | | | | | | CORE | | + +---------+ + + + | CHLORIDE, | 99 | 97 - 108 mmol/L | [facility] | | | PLASMA | | | LABORATORY | | | (LAB) | | | SERVICES, | | | | | | CORE | | + +---------+ + + + | TOTAL CO2, | 33 (H) | 21 - 32 mmol/L | [facility] | | | PLASMA | | | LABORATORY | | | (LAB) | | | SERVICES, | | | | | | CORE | | + +---------+ + + + | CALCIUM, | 7.8 (L) | 8.6 - 10.2 | [facility] | | | PLASMA | | mg/dL | LABORATORY | | | (LAB) | | | SERVICES, | | | | | | CORE | | + +---------+ + + + | ALBUMIN, | 2.1 (L) | 3.5 - 4.7 g/dL | [facility] | | | PLASMA | | | LABORATORY | | | (LAB) | | | SERVICES, | | | | | | CORE | | + +---------+ + + + | PHOSPHORUS, | 4.2 | 2.4 - 4.7 mg/dL | [facility] | | | PLASMA | | | LABORATORY | | | (LAB) | | | SERVICES, | | | | | | CORE | | + +---------+ + + + | POTASSIUM | | | [facility] | | | CMNT | | | LABORATORY | | | | | | SERVICES, | | | | | | CORE | | + +---------+ + + + | ANION GAP | 5 | mmol/L | [facility] | | | | | | LABORATORY | | | | | | SERVICES, | | | | | | CORE | | + +---------+ + + + | ANION | 9 | 4 - 11 mmol/L | [facility] | | | GAP(ALB | | | LABORATORY | | | CORRECTED) | | | SERVICES, | | | | | | CORE | | + +---------+ + + + + + | Specimen | + + | Blood - Blood | + + + + + + + | Performing | Address | City/State/Zipcode | Phone Number | | Organization | | | | + + + + + | [facility] | [address] | [place] [address] | | | SERVICES, CORE | [address] | | | + + + + + CAPILLARY BLOOD GLUCOSE (NO CHG), POC (03/31/2013 8:06 PM PDT) + +---------+ + + + | Component | Value | Ref Range | Performed | Pathologist | | | | | At | Signature | + +---------+ + + + | BLOOD | 143 (H) | 60 - 99 mg/dL | [facility] - | | | GLUCOSE, | | | [facility] | | | POC | | | [facility] | | | | | | OF CARE | | | | | | TESTS | | + +---------+ + + + + + | Specimen | + + | | + + + + + + + | Performing | Address | City/State/Zipcode | Phone Number | | Organization | | | | + + + + + | [facility] | [address] | [place], [place] | | | [facility] | [facility] | [address] | | | TESTS | | | | + + + + + X-RAY ABD LTD FEEDING TUBE EVAL PORTABLE (03/31/2013 4:23 PM PDT) + + + + + + | Component | Value | Ref Range | Performed | Pathologist | | | | | At | Signature | + + + + + + | X-RAY ABD | INDICATION:Postpyloric | | | | | LTD FEEDING | feeding tube placement | | | | | TUBE EVAL | TECHNIQUE:Two | | | | | PORTABLE | semiupright portable | | | | | | views of the upper | | | | | | abdomen and chest. | | | | | | FINDINGS/IMPRESSION:No | | | | | | feeding tube is seen. | | | | | | A nasogastric tube is | | | | | | present with tip in the | | | | | | distalstomach. Attending | | | | | | Radiologists: NOMI | | | | | | REMI MALIKuthor: NOMI | | | | | | MD KING I have | | | | | | personally viewed this | | | | | | procedure/exam, reviewed | | | | | | this report, and | | | | | | madechanges to it where | | | | | | appropriate. | | | | | | Final/Electronically | | | | | | signed / NOMI MALIK | | | | | | 03/31/2013 16:49 PM | | | | + + + + + + + + | Specimen | + + | | + + + +---------+ + + | Performing | Address | City/State/Zipcode | Phone Number | | Organization | | | | + +---------+ + + | [facility] OF | | | | | RADIOLOGY | | | | + +---------+ + + LIPASE, PLASMA (03/31/2013 11:33 AM PDT) + +---------+ + + + | Component | Value | Ref Range | Performed | Pathologist | | | | | At | Signature | + +---------+ + + + | LIPASE | [address]) | 152 - 353 U/L | [facility] | | | (LAB) | | | LABORATORY | | | | | | SERVICES, | | | | | | CORE | | + +---------+ + + + + + | Specimen | + + | Blood - Blood | + + + + + + + | Performing | Address | City/State/Zipcode | Phone Number | | Organization | | | | + + + + + | [facility] | [address] | [place] [address] | | | [place] JARAMILLO | [address] | | | + + + + + CAPILLARY BLOOD GLUCOSE (NO CHG), POC (03/31/2013 11:17 AM PDT) + +---------+ + + + | Component | Value | Ref Range | Performed | Pathologist | | | | | At | Signature | + +---------+ + + + | BLOOD | 148 (H) | 60 - 99 mg/dL | [facility] - | | | GLUCOSE, | | | [facility] | | | POC | | | [facility] | | | | | | OF CARE | | | | | | TESTS | | + +---------+ + + + + + | Specimen | + + | | + + + + + + + | Performing | Address | City/State/Zipcode | Phone Number | | Organization | | | | + + + + + | [facility] | [address] | [place], [place] | | | [facility] | [address] | [address] | | | TESTS | | | | + + + + + X-RAY PORTABLE CHEST 1 VIEW (03/31/2013 10:40 AM PDT) + + + + + + | Component | Value | Ref Range | Performed | Pathologist | | | | | At | Signature | + + + + + + | X-RAY | EXAM: [place] CHEST 1 VIEW | | | | | PORTABLE | 03/31/13 10:40:00 | | | | | CHEST 1 | HISTORY: Increasing O2 | | | | | VIEW | requirements COMPARISON: | | | | | | Yesterday FINDINGS: The | | | | | | support equipment is | | | | | | unchanged. The cardia | | | | | | mediastinal silhouette | | | | | | isstable. There is | | | | | | persistent right lower | | | | | | and middle lobe collapse | | | | | | withpersistent small | | | | | | layering bilateral | | | | | | pleural effusions. | | | | | | Overall | | | | | | hydrostaticpulmonary | | | | | | edema has slightly | | | | | | improved. There is no | | | | | | pneumothorax. | | | | | | IMPRESSION: Unchanged | | | | | | right lower and middle | | | | | | lobe collapse with small | | | | | | layering | | | | | | bilateralpleural | | | | | | effusions. Improving | | | | | | hydrostatic pulmonary | | | | | | edema. Attending | | | | | | Radiologists: MAL | | | | | | REMI THAOuthor: MAL | | | | | | MD KEESHA I have | | | | | | personally viewed this | | | | | | procedure/exam, reviewed | | | | | | this report, and | | | | | | madechanges to it where | | | | | | appropriate. | | | | | | Final/Electronically | | | | | | signed / MAL | | | | | | FUSS 03/31/2013 13:00 PM | | | | | | | | | | + + + + + + + + | Specimen | + + | | + + + +---------+ + + | Performing | Address | City/State/Zipcode | Phone Number | | Organization | | | | + +---------+ + + | [facility] | | | | | RADIOLOGY | | | | + +---------+ + + CAPILLARY BLOOD GLUCOSE (NO CHG), POC (03/31/2013 6:16 AM PDT) + +---------+ + + + | Component | Value | Ref Range | Performed | Pathologist | | | | | At | Signature | + +---------+ + + + | BLOOD | 103 (H) | 60 - 99 mg/dL | [facility] | | | GLUCOSE, | | | [facility] | | | POC | | | [facility] | | | | | | OF CARE | | | | | | TESTS | | + +---------+ + + + + + | Specimen | + + | | + + + + + + + | Performing | Address | City/State/Zipcode | Phone Number | | Organization | | | | + + + + + | [facility] | [address] | [place], [place] | | | [facility] | [address] | [address] | | | TESTS | | | | + + + + + CBC (HEMOGRAM) ONLY (03/31/2013 4:11 AM PDT) + + + + + + | Component | Value | Ref Range | Performed | Pathologist | | | | | At | Signature | + + + + + + | WHITE CELL | 13.26 (H) | 4.40 - 11.00 | [facility] | | | COUNT | | K/cu mm | LABORATORY | | | | | | SERVICES, | | | | | | CORE | | + + + + + + | RED CELL | 3.59 (L) | 4.00 - 5.20 | [facility] | | | COUNT | | M/cu mm | LABORATORY | | | | | | SERVICES, | | | | | | CORE | | + + + + + + | HEMOGLOBIN | 10.5 (L) | 12.0 - 16.0 | [facility] | | | | | g/dL | LABORATORY | | | | | | SERVICES, | | | | | | CORE | | + + + + + + | HEMATOCRIT | 33.8 (L) | 36.0 - 46.0 % | [facility] | | | | | | LABORATORY | | | | | | SERVICES, | | | | | | CORE | | + + + + + + | MCV | 94.2 | 80.0 - 96.0 fL | [facility] | | | | | | LABORATORY | | | | | | SERVICES, | | | | | | CORE | | + + + + + + | MCHC | 31.1 (L) | 33.0 - 35.5 | [facility] | | | | | g/dL | LABORATORY | | | | | | SERVICES, | | | | | | CORE | | + + + + + + | RDW SD | 47.6 (H) | 35.1 - 46.3 fL | [facility] | | | | | | LABORATORY | | | | | | SERVICES, | | | | | | CORE | | + + + + + + | PLATELET | 353 | 150 - 400 K/cu | [facility] | | | COUNT | | mm | LABORATORY | | | | | | SERVICES, | | | | | | CORE | | + + + + + + | MPV | 10.0 | 9.7 - 12.3 fL | [facility] | | | | | | LABORATORY | | | | | | SERVICES, | | | | | | CORE | | + + + + + + | NRBC% | 0.0 | 0.0 - 0.3 % | [facility] | | | | | | LABORATORY | | | | | | SERVICES, | | | | | | CORE | | + + + + + + | NRBC# | 0.00 | 0.00 - 0.02 | [facility] | | | | | K/cu mm | LABORATORY | | | | | | SERVICES, | | | | | | CORE | | + + + + + + + + | Specimen | + + | Blood - Blood | + + + + + | Narrative | Performed At | + + + | New methodology and reference ranges for some CBC/Differential | [facility] | | analytes in effect on 02/27/13. | LABORATORY | | | SERVICES, CORE | + + + + + + + + | Performing | Address | City/State/Zipcode | Phone Number | | Organization | | | | + + + + + | [facility] | [address] | [place] [address] | | | SERVICES, CORE | [address] | | | + + + + + PHOSPHORUS, PLASMA (03/31/2013 4:11 AM PDT) + +-------+ + + + | Component | Value | Ref Range | Performed | Pathologist | | | | | At | Signature | + +-------+ + + + | PHOSPHORUS, | 4.3 | 2.4 - 4.7 mg/dL | [facility] | | | PLASMA | | | LABORATORY | | | (LAB) | | | SERVICES, | | | | | | CORE | | + +-------+ + + + + + | Specimen | + + | Blood - Blood | + + + + + + + | Performing | Address | City/State/Zipcode | Phone Number | | Organization | | | | + + + + + | [facility] | [address] | [place] [address] | | | [place], [place] | [address] | | | + + + + + MAGNESIUM, PLASMA (03/31/2013 4:11 AM PDT) + +-------+ + + + | Component | Value | Ref Range | Performed | Pathologist | | | | | At | Signature | + +-------+ + + + | MAGNESIUM,P | 2.3 | 1.8 - 2.5 mg/dL | [facility] | | | LASMA | | | LABORATORY | | | | | | SERVICES, | | | | | | CORE | | + +-------+ + + + + + | Specimen | + + | Blood - Blood | + + + + + + + | Performing | Address | City/State/Zipcode | Phone Number | | Organization | | | | + + + + + | [facility] | [address] | [place] [address] | | | SERVICES, CORE | [address] | | | + + + + + CAPILLARY BLOOD GLUCOSE (NO CHG), POC (03/31/2013 12:05 AM PDT) + +---------+ + + + | Component | Value | Ref Range | Performed | Pathologist | | | | | At | Signature | + +---------+ + + + | BLOOD | 147 (H) | 60 - 99 mg/dL | [facility] - | | | GLUCOSE, | | | [facility] | | | POC | | | [facility] | | | | | | OF CARE | | | | | | TESTS | | + +---------+ + + + + + | Specimen | + + | | + + + + + + + | Performing | Address | City/State/Zipcode | Phone Number | | Organization | | | | + + + + + | [facility] | [address] | [place], [place] | | | [facility] | [facility] | [address] | | | TESTS | | | | + + + + + CAPILLARY BLOOD GLUCOSE (NO CHG), POC (03/30/2013 8:30 PM PDT) + +---------+ + + + | Component | Value | Ref Range | Performed | Pathologist | | | | | At | Signature | + +---------+ + + + | BLOOD | 117 (H) | 60 - 99 mg/dL | [facility] - | | | GLUCOSE, | | | [facility] | | | POC | | | [facility] | | | | | | OF CARE | | | | | | TESTS | | + +---------+ + + + + + | Specimen | + + | | + + + + + + + | Performing | Address | City/State/Zipcode | Phone Number | | Organization | | | | + + + + + | [facility] | [address] | [place], [place] | | | [facility]ARE | [address] | [address] | | | TESTS | | | | + + + + + BASIC METABOLIC SET (NA, K, CL, TCO2, BUN, CR, GLU, CA) (03/30/2013 8:20 PM PDT) + +---------+ + + + | Component | Value | Ref Range | Performed | Pathologist | | | | | At | Signature | + +---------+ + + + | GLUCOSE, | 141 (H) | 60 - 99 mg/dL | [facility] | | | PLASMA | | | LABORATORY | | | (LAB) | | | SERVICES, | | | | | | CORE | | + +---------+ + + + | BUN, PLASMA | 23 (H) | 6 - 20 mg/dL | [facility] | | | (LAB) | | | LABORATORY | | | | | | SERVICES, | | | | | | CORE | | + +---------+ + + + | CREATININE | 0.63 | 0.60 - 1.10 | [facility] | | | PLASMA | | mg/dL | LABORATORY | | | (LAB) | | | SERVICES, | | | | | | CORE | | + +---------+ + + + | EGFR | >60 | >60 mL/min | [facility] | | | - | | | LABORATORY | | | [place] | | | SERVICES, | | | | | | CORE | | + +---------+ + + + | EGFR NON | >60 | >60 mL/min | [facility] | | | -BLANKA | | | LABORATORY | | | [facility] | | | SERVICES, | | | | | | CORE | | + +---------+ + + + | SODIUM, | 140 | 136 - 145 | [facility] | | | PLASMA | | mmol/L | LABORATORY | | | (LAB) | | | SERVICES, | | | | | | CORE | | + +---------+ + + + | POTASSIUM, | 4.6 | 3.4 - 5.0 | [facility] | | | PLASMA | | mmol/L | LABORATORY | | | (LAB) | | | SERVICES, | | | | | | CORE | | + +---------+ + + + | CHLORIDE, | 101 | 97 - 108 mmol/L | [facility] | | | PLASMA | | | LABORATORY | | | (LAB) | | | SERVICES, | | | | | | CORE | | + +---------+ + + + | TOTAL CO2, | 33 (H) | 21 - 32 mmol/L | [facility] | | | PLASMA | | | LABORATORY | | | (LAB) | | | SERVICES, | | | | | | CORE | | + +---------+ + + + | CALCIUM, | 8.1 (L) | 8.6 - 10.2 | [facility] | | | PLASMA | | mg/dL | LABORATORY | | | (LAB) | | | SERVICES, | | | | | | CORE | | + +---------+ + + + | ANION GAP | 6 | mmol/L | [facility] | | | | | | LABORATORY | | | | | | SERVICES, | | | | | | CORE | | + +---------+ + + + | POTASSIUM | No Hemo | | [facility] | | | CMNT | | | LABORATORY | | | | | | SERVICES, | | | | | | CORE | | + +---------+ + + + + + | Specimen | + + | Blood - Blood | + + + + + | Narrative | Performed At | + + + | GFR is estimated using the MDRD equation recommended by the | [facility] | | National Kidney Disease Education Program. Estimated GFR | LABORATORY | | Interpretive Information: <60 mL/min/1.73 sq m | SERVICES, CORE | | Chronic Kidney Disease <15 mL/min/1.73 sq m | | | Kidney Failure Estimated GFR greater that 60 mL/min/1.73 sq m is of | | | limited clinical value. The MDRD equation is not valid in the | | | following situations: - Patients under 18 years of age - Severe | | | malnutrition or obesity - Vegetarian diet - Rapidly changing kidney | | | function | | + + + + + + + + | Performing | Address | City/State/Zipcode | Phone Number | | Organization | | | | + + + + + | [facility] | [address] | [place] [address] | | | [place] [facility] | [address] | | | + + + + + 12 LEAD ECG (03/30/2013 8:19 PM PDT) + + + + + + | Component | Value | Ref Range | Performed | Pathologist | | | | | At | Signature | + + + + + + | VENTRICULAR | 93 | BPM | [facility] | | | RATE | | | OF | | | | | | CARDIOLOGY | | + + + + + + | ATRIAL RATE | 93 | BPM | [facility] | | | | | | OF | | | | | | CARDIOLOGY | | + + + + + + | P-R | 154 | ms | [facility] | | | INTERVAL | | | OF | | | | | | CARDIOLOGY | | + + + + + + | QRS | 68 | ms | [facility] | | | DURATION | | | OF | | | | | | CARDIOLOGY | | + + + + + + | QT | 380 | ms | [facility] | | | | | | OF | | | | | | CARDIOLOGY | | + + + + + + | QTC | 472 | ms | [facility] | | | | | | OF | | | | | | CARDIOLOGY | | + + + + + + | P AXIS | 52 | degrees | [facility] | | | | | | OF | | | | | | CARDIOLOGY | | + + + + + + | R AXIS | 32 | degrees | [facility] | | | | | | OF | | | | | | CARDIOLOGY | | + + + + + + | T AXIS | 23 | degrees | [facility] | | | | | | OF | | | | | | CARDIOLOGY | | + + + + + + | EKG | Normal sinus | | [facility] | | | DIAGNOSIS | rhythmNormal ECG"I have | | OF | | | | personally interpreted | | CARDIOLOGY | | | | this report, either | | | | | | alone or with a | | | | | | trainee."Confirmed by | | | | | | IVÁN DILLON ([id number]) | | | | | | on 04/01/2013 12:41:47 PM | | | | + + + + + + + + | Specimen | + + | | + + + + + | Narrative | Performed At | + + + | Please click | [facility] OF | | on view image for the detailed interpretation from [employer] results. | CARDIOLOGY | + + + + + | Procedure Note | + + | Interface, Cardiology Results - 04/01/2013 12:41 PM PDT Please click on view image | | for the detailed interpretation from [employer] results. | + + + + + + + | Performing | Address | City/State/Zipcode | Phone Number | | Organization | | | | + + + + + | [facility] | [address] | [place], [place] | | | CARDIOLOGY | [address] | [address] | | + + + + + VASC LAB PORTABLE VENOUS DUPLEX LOWER EXTREMITY BILATERAL COMPLETE (03/30/2013 2:49 PM PDT ) + + + + + + | Component | Value | Ref Range | Performed | Pathologist | | | | | At | Signature | + + + + + + | VASC LAB | LOWER EXTREMITY VENOUS | | | | | PORTABLE | EXAMINATION: | | | | | VENOUS | 03/30/2013 Dictated | | | | | DUPLEX | 03/30/2013 INDICATION: | | | | | LOWER | Leg pain. FINDINGS: | | | | | EXTREMITY | The deep and | | | | | BILATERAL | superficial veins of | | | | | COMPLETE | both lower extremities | | | | | | wereexamined with the | | | | | | duplex scanner. There | | | | | | are normal flows and | | | | | | responses toaugmentation | | | | | | and compression | | | | | | maneuvers in the deep | | | | | | and superficial | | | | | | veinsbilaterally. | | | | | | There is no evidence | | | | | | of deep or superficial | | | | | | venous | | | | | | thrombosisbilaterally. | | | | | | IMPRESSION: Normal | | | | | | bilateral lower | | | | | | extremity venous | | | | | | examination. There is | | | | | | no evidence ofdeep or | | | | | | superficial venous | | | | | | thrombosis bilaterally. | | | | | | END IMPRESSION | | | | | | Attending Radiologists: | | | | | | ,Author: NANI | | | | | | MD SANDOVAL I have | | | | | | personally viewed this | | | | | | procedure/exam, reviewed | | | | | | this report, and | | | | | | madechanges to it where | | | | | | appropriate. | | | | | | Final/Electronically | | | | | | kayy / NANI | | | | | | SANDOVAL Preliminary / | | | | | | Mary Purcell | | | | + + + + + + + + | Specimen | + + | | + + + +---------+ + + | Performing | Address | City/State/Zipcode | Phone Number | | Organization | | | | + +---------+ + + | [facility] DEPARTMENT OF | | | | | RADIOLOGY | | | | + +---------+ + + LIVER SET (AST,ALT,BILI TOTAL,BILI DIRECT,ALK PHOS,ALB,PROT TOTAL) (03/30/2013 1:14 PM PDT ) + +---------+ + + + | Component | Value | Ref Range | Performed | Pathologist | | | | | At | Signature | + +---------+ + + + | ALBUMIN, | 2.6 (L) | 3.5 - 4.7 g/dL | [facility] | | | PLASMA | | | LABORATORY | | | (LAB) | | | SERVICES, | | | | | | CORE | | + +---------+ + + + | BILIRUBIN | 0.3 | 0.3 - 1.2 mg/dL | [facility] | | | TOTAL | | | LABORATORY | | | | | | SERVICES, | | | | | | CORE | | + +---------+ + + + | BILIRUBIN | <0.1 | 0.0 - 0.3 mg/dL | [facility] | | | DIRECT | | | LABORATORY | | | | | | SERVICES, | | | | | | CORE | | + +---------+ + + + | ALK PHOS | 61 | 53 - 141 U/L | [facility] | | | | | | LABORATORY | | | | | | SERVICES, | | | | | | CORE | | + +---------+ + + + | AST(SGOT) | 27 | 15 - 41 U/L | [facility] | | | | | | LABORATORY | | | | | | SERVICES, | | | | | | CORE | | + +---------+ + + + | ALT (SGPT) | 16 | 12 - 60 U/L | [facility] | | | | | | LABORATORY | | | | | | SERVICES, | | | | | | CORE | | + +---------+ + + + | TOTAL | 6.1 (L) | 6.4 - 8.2 g/dL | [facility] | | | PROTEIN, | | | LABORATORY | | | PLASMA | | | SERVICES, | | | (LAB) | | | CORE | | + +---------+ + + + | AST CMNT | No Hemo | | [facility] | | | | | | LABORATORY | | | | | | SERVICES, | | | | | | CORE | | + +---------+ + + + | BILI T CMNT | No Hemo | | [facility] | | | | | | LABORATORY | | | | | | SERVICES, | | | | | | CORE | | + +---------+ + + + | BILI D CMNT | No Hemo | | [facility] | | | | | | LABORATORY | | | | | | SERVICES, | | | | | | CORE | | + +---------+ + + + + + | Specimen | + + | Blood - Blood | + + + + + | Narrative | Performed At | + + + | New reference range effective 2012 for Total proteins | [facility] | | performed in Core Lab only. | LABORATORY | | | SERVICES, CORE | + + + + + + + + | Performing | Address | City/State/Zipcode | Phone Number | | Organization | | | | + + + + + | [facility] | [address] | [place] [address] | | | [place], [place] | [address] | | | + + + + + LIPASE, PLASMA (03/30/2013 1:14 PM PDT) + +---------+ + + + | Component | Value | Ref Range | Performed | Pathologist | | | | | At | Signature | + +---------+ + + + | LIPASE | 468 (H) | 152 - 353 U/L | [facility] | | | (LAB) | | | LABORATORY | | | | | | SERVICES, | | | | | | CORE | | + +---------+ + + + + + | Specimen | + + | Blood - Blood | + + + + + + + | Performing | Address | City/State/Zipcode | Phone Number | | Organization | | | | + + + + + | [facility] | [address] | [place] [address] | | | SERVICES, CORE | [address] | | | + + + + + ERIN MCDONALD ONLY (03/30/2013 1:13 PM PDT) + + + + + + | Component | Value | Ref Range | Performed | Pathologist | | | | | At | Signature | + + + + + + | COLOR(UR) | Straw | | [facility] | | | | | | LABORATORY | | | | | | SERVICES, | | | | | | CORE | | + + + + + + | APPEARANCE | Clear | | [facility] | | | | | | LABORATORY | | | | | | SERVICES, | | | | | | CORE | | + + + + + + | GLUCOSE(UR) | Negative | Negative, 50.0 | [facility] | | | | | mg/dL | LABORATORY | | | | | | SERVICES, | | | | | | CORE | | + + + + + + | PROTEIN(LAB | Negative | Negative, 30.0 | [facility] | | | ) | | mg/dL | LABORATORY | | | | | | SERVICES, | | | | | | CORE | | + + + + + + | BILIRUBIN | Negative | Negative | [facility] | | | | | | LABORATORY | | | | | | SERVICES, | | | | | | CORE | | + + + + + + | UROBILINOGE | <2.0 | <2.0 mg/dL | [facility] | | | N | | | LABORATORY | | | | | | SERVICES, | | | | | | CORE | | + + + + + + | PH(UR) | 7.0 | 5.0 - 8.0 | [facility] | | | | | | LABORATORY | | | | | | SERVICES, | | | | | | CORE | | + + + + + + | BLOOD | Negative | Negative | [facility] | | | | | | LABORATORY | | | | | | SERVICES, | | | | | | CORE | | + + + + + + | KETONES | Negative | Negative mg/dL | [facility] | | | | | | LABORATORY | | | | | | SERVICES, | | | | | | CORE | | + + + + + + | NITRITES | Negative | Negative | [facility] | | | | | | LABORATORY | | | | | | SERVICES, | | | | | | CORE | | + + + + + + | LEUKOCYTE | Negative | Negative | [facility] | | | ESTERASE | | | LABORATORY | | | | | | SERVICES, | | | | | | CORE | | + + + + + + | SPECIFIC | 1.013 | 1.005 - 1.030 | [facility] | | | GRAVITY | | | LABORATORY | | | | | | SERVICES, | | | | | | CORE | | + + + + + + + + | Specimen | + + | Urine - Urine | + + + + + + + | Performing | Address | City/State/Zipcode | Phone Number | | Organization | | | | + + + + + | [facility] | [address] | [place] [address] | | | SERVICES, CORE | [address] | | | + + + + + URINE, MICROSCOPIC EXAM (03/30/2013 1:13 PM PDT) + +-------+ + + + | Component | Value | Ref Range | Performed | Pathologist | | | | | At | Signature | + +-------+ + + + | RED CELLS | <1 | 0 - 3 /hpf | [facility] | | | | | | LABORATORY | | | | | | SERVICES, | | | | | | CORE | | + +-------+ + + + | WHITE CELLS | 1 | 0 - 5 /hpf | [facility] | | | | | | LABORATORY | | | | | | SERVICES, | | | | | | CORE | | + +-------+ + + + | BACTERIA | None | None /hpf | [facility] | | | | | | LABORATORY | | | | | | SERVICES, | | | | | | CORE | | + +-------+ + + + | YEAST (LAB) | None | None /hpf | [facility] | | | | | | LABORATORY | | | | | | SERVICES, | | | | | | CORE | | + +-------+ + + + | SQUAMOUS | None | None /hpf | [facility] | | | EPITHELIAL | | | LABORATORY | | | | | | SERVICES, | | | | | | CORE | | + +-------+ + + + | MUCOUS | None | None /hpf | [facility] | | | | | | LABORATORY | | | | | | SERVICES, | | | | | | CORE | | + +-------+ + + + | TRICHOMONAS | None | None /hpf | [facility] | | | | | | LABORATORY | | | | | | SERVICES, | | | | | | CORE | | + +-------+ + + + | NON-SQUAMOU | None | None /hpf | [facility] | | | S EPITH | | | LABORATORY | | | | | | SERVICES, | | | | | | CORE | | + +-------+ + + + | HYALINE | 0 | 0 - 2 /lpf | [facility] | | | CASTS | | | LABORATORY | | | | | | SERVICES, | | | | | | CORE | | + +-------+ + + + | GRANULAR | 0 | 0 - 2 /lpf | [facility] | | | CASTS | | | LABORATORY | | | | | | SERVICES, | | | | | | CORE | | + +-------+ + + + | CELLULAR | 0 | <=0 /lpf | [facility] | | | CASTS | | | LABORATORY | | | | | | SERVICES, | | | | | | CORE | | + +-------+ + + + | TRIPLE P04 | None | None /hpf | [facility] | | | CRYSTALS | | | LABORATORY | | | | | | SERVICES, | | | | | | CORE | | + +-------+ + + + | CALCIUM | None | None /hpf | [facility] | | | OXALATE | | | LABORATORY | | | ELIE | | | SERVICES, | | | | | | CORE | | + +-------+ + + + | URIC ACID | None | None /hpf | [facility] | | | CRYSTALS | | | LABORATORY | | | | | | SERVICES, | | | | | | CORE | | + +-------+ + + + | AMORPHOUS | None | None /hpf | [facility] | | | CRYSTALS | | | LABORATORY | | | | | | SERVICES, | | | | | | CORE | | + +-------+ + + + + + | Specimen | + + | Urine - Urine | + + + + + + + | Performing | Address | City/State/Zipcode | Phone Number | | Organization | | | | + + + + + | [facility] | [address] | [place] [address] | | | SERVICES, CORE | [address] | | | + + + + + URINE SCREEN FOR CULTURE (03/30/2013 1:13 PM PDT) + + + + + + | Component | Value | Ref Range | Performed | Pathologist | | | | | At | Signature | + + + + + + | URINE | Negative | Negative | [facility] | | | SCREEN FOR | | | LABORATORY | | | CULTURE | | | SERVICES, | | | | | | CORE | | + + + + + + + + | Specimen | + + | Urine - Urine | + + + + + | Narrative | Performed At | + + + | Culture Screen Negative. Culture not indicated. | [facility] | | | LABORATORY | | | [place] [address] | + + + + + + + + | Performing | Address | City/State/Zipcode | Phone Number | | Organization | | | | + + + + + | [facility] | [address] | [place] [address] | | | [place] | [address] | | | + + + + + CAPILLARY BLOOD GLUCOSE (NO CHG), POC (03/30/2013 12:02 PM PDT) + +---------+ + + + | Component | Value | Ref Range | Performed | Pathologist | | | | | At | Signature | + +---------+ + + + | BLOOD | 175 (H) | 60 - 99 mg/dL | [facility] - | | | GLUCOSE, | | | [facility] | | | POC | | | [place] [place] | | | | | | OF CARE | | | | | | TESTS | | + +---------+ + + + + + | Specimen | + + | | + + + + + + + | Performing | Address | City/State/Zipcode | Phone Number | | Organization | | | | + + + + + | [facility] | [address] | [place], [place] | | | [facility] OF CARE | [facility] | [address] | | | TESTS | | | | + + + + + RENAL FUNCTION SET (NA,K,CL,CO2,BUN,CREAT,GLUC,CA,PHOS,ALB ) (03/30/2013 12:00 PM PDT) + + + + + + | Component | Value | Ref Range | Performed | Pathologist | | | | | At | Signature | + + + + + + | GLUCOSE, | 150 (H) | 60 - 99 mg/dL | [facility] | | | [facility] | | | LABORATORY | | | (LAB) | | | SERVICES, | | | | | | CORE | | + + + + + + | BUN, PLASMA | 22 (H) | 6 - 20 mg/dL | [facility] | | | (LAB) | | | LABORATORY | | | | | | SERVICES, | | | | | | CORE | | + + + + + + | CREATININE | 0.58 (L) | 0.60 - 1.10 | [facility] | | | PLASMA | | mg/dL | LABORATORY | | | (LAB) | | | SERVICES, | | | | | | CORE | | + + + + + + | EGFR | >60 | >60 mL/min | [facility] | | | - | | | LABORATORY | | | [facility] | | | SERVICES, | | | | | | CORE | | + + + + + + | EGFR NON | >60 | >60 mL/min | [facility] | | | [facility] | | | LABORATORY | | | [facility] | | | SERVICES, | | | | | | CORE | | + + + + + + | SODIUM, | 137 | 136 - 145 | [facility] | | | PLASMA | | mmol/L | LABORATORY | | | (LAB) | | | SERVICES, | | | | | | CORE | | + + + + + + | POTASSIUM, | 4.2 | 3.4 - 5.0 | [facility] | | | PLASMA | | mmol/L | LABORATORY | | | (LAB) | | | SERVICES, | | | | | | CORE | | + + + + + + | CHLORIDE, | 100 | 97 - 108 mmol/L | [facility] | | | PLASMA | | | LABORATORY | | | (LAB) | | | SERVICES, | | | | | | CORE | | + + + + + + | TOTAL CO2, | 30 | 21 - 32 mmol/L | [facility] | | | PLASMA | | | LABORATORY | | | (LAB) | | | SERVICES, | | | | | | CORE | | + + + + + + | CALCIUM, | 8.0 (L) | 8.6 - 10.2 | [facility] | | | PLASMA | | mg/dL | LABORATORY | | | (LAB) | | | SERVICES, | | | | | | CORE | | + + + + + + | ALBUMIN, | 2.6 (L) | 3.5 - 4.7 g/dL | [facility] | | | PLASMA | | | LABORATORY | | | (LAB) | | | SERVICES, | | | | | | CORE | | + + + + + + | PHOSPHORUS, | 4.0 | 2.4 - 4.7 mg/dL | [facility] | | | PLASMA | | | LABORATORY | | | (LAB) | | | SERVICES, | | | | | | CORE | | + + + + + + | POTASSIUM | | | [facility] | | | [facility]NT | | | LABORATORY | | | | | | SERVICES, | | | | | | CORE | | + + + + + + | ANION GAP | 7 | mmol/L | [facility] | | | | | | LABORATORY | | | | | | SERVICES, | | | | | | CORE | | + + + + + + | ANION | 10 | 4 - 11 mmol/L | [facility] | | | GAP(ALB | | | LABORATORY | | | CORRECTED) | | | SERVICES, | | | | | | CORE | | + + + + + + + + | Specimen | + + | Blood - Blood | + + + + + + + | Performing | Address | City/State/Zipcode | Phone Number | | Organization | | | | + + + + + | [facility] | [address] | [place] [address] | | | [place] [place] | [address] | | | + + + + + VANCOMYCIN, TROUGH (03/30/2013 9:54 AM PDT) + +-------+ + + + | Component | Value | Ref Range | Performed | Pathologist | | | | | At | Signature | + +-------+ + + + | VANCOMYCIN, | 13.8 | 5.0 - 15.0 | [facility] | | | [facility] | | ug/mL | LABORATORY | | | | | | SERVICES, | | | | | | CORE | | + +-------+ + + + + + | Specimen | + + | Blood - Blood | + + + + + + + | Performing | Address | City/State/Zipcode | Phone Number | | Organization | | | | + + + + + | [facility] | [address] | [place] [address] | | | SERVICES, CORE | [address] | | | + + + + + CAPILLARY BLOOD GLUCOSE (NO CHG), POC (03/30/2013 5:35 AM PDT) + +---------+ + + + | Component | Value | Ref Range | Performed | Pathologist | | | | | At | Signature | + +---------+ + + + | BLOOD | 161 (H) | 60 - 99 mg/dL | [facility] - | | | GLUCOSE, | | | [facility] | | | POC | | | [facility] | | | | | | OF CARE | | | | | | TESTS | | + +---------+ + + + + + | Specimen | + + | | + + + + + + + | Performing | Address | City/State/Zipcode | Phone Number | | Organization | | | | + + + + + | [facility] | [address] | [place], [place] | | | [facility] | [address] | [address] | | | TESTS | | | | + + + + + BLOOD GASES, ARTERIAL - LAB (03/30/2013 3:40 AM PDT) + +--------+ + + + | Component | Value | Ref Range | Performed | Pathologist | | | | | At | Signature | + +--------+ + + + | PAT TEMP | 37.2 | Degree C | [facility] | | | ARTERIAL | | | LABORATORY | | | | | | SERVICES, | | | | | | CORE | | + +--------+ + + + | FIO2 | 20l | | [facility] | | | ARTERIAL | | | LABORATORY | | | | | | SERVICES, | | | | | | CORE | | + +--------+ + + + | PH ARTERIAL | 7.43 | 7.37 - 7.44 | [facility] | | | | | | LABORATORY | | | | | | SERVICES, | | | | | | CORE | | + +--------+ + + + | PCO2 | 43 | 32 - 43 mmHg | [facility] | | | ARTERIAL | | | LABORATORY | | | | | | SERVICES, | | | | | | CORE | | + +--------+ + + + | PO2 | 96 | 72 - 104 mmHg | [facility] | | | ARTERIAL | | | LABORATORY | | | | | | SERVICES, | | | | | | CORE | | + +--------+ + + + | HCO3 | 28 | 21 - 28 mmol/L | [facility] | | | ARTERIAL | | | LABORATORY | | | | | | SERVICES, | | | | | | CORE | | + +--------+ + + + | TOTAL CO2 | 29 (H) | 22 - 28 mmol/L | [facility] | | | ARTERIAL | | | LABORATORY | | | | | | SERVICES, | | | | | | CORE | | + +--------+ + + + | BASE EXCESS | 3.3 | | [facility] | | | ARTERIAL | | | LABORATORY | | | | | | SERVICES, | | | | | | CORE | | + +--------+ + + + | O2 SAT, | 97.4 | 92.0 - 98.0 | [facility] | | | ARTERIAL | | | LABORATORY | | | | | | SERVICES, | | | | | | CORE | | + +--------+ + + + + + | Specimen | + + | Blood - Blood | + + + + + + + | Performing | Address | City/State/Zipcode | Phone Number | | Organization | | | | + + + + + | [facility] | [address] | [place] [address] | | | SERVICES, CORE | [address] | | | + + + + + HEMOGLOBIN, POC RESP (03/30/2013 1:53 AM PDT) + + + + + + | Component | Value | Ref Range | Performed | Pathologist | | | | | At | Signature | + + + + + + | HEMOGLOBIN, | 11.8 (L) | 12.0 - 16.0 | [facility] | | | POC | | g/dL | RESPIRATORY | | | | | | THERAPY | | + + + + + + + + | Specimen | + + | | + + + + + + + | Performing | Address | City/State/Zipcode | Phone Number | | Organization | | | | + + + + + | [facility] | [address] | [place], [place] | | | THERAPY | [address] | [address] | | + + + + + MARIXA MELGOZA (03/30/2013 1:53 AM PDT) + +-------+ + + + | Component | Value | Ref Range | Performed | Pathologist | | | | | At | Signature | + +-------+ + + + | LACTATE, | 0.6 | 0.5 - 1.6 | [facility] | | | POC ABL | | mmol/L | RESPIRATORY | | | | | | THERAPY | | + +-------+ + + + + + | Specimen | + + | | + + + + + + + | Performing | Address | City/State/Zipcode | Phone Number | | Organization | | | | + + + + + | [facility] | [address] | [place] | | | THERAPY | [address] | [address] | | + + + + + IONIZD CA WB, POC RESP (03/30/2013 1:53 AM PDT) + +-------+ + + + | Component | Value | Ref Range | Performed | Pathologist | | | | | At | Signature | + +-------+ + + + | MARGO | 1.17 | 1.14 - 1.32 | [facility] | | | IONIZED | | mmol/L | RESPIRATORY | | | CA,WHOLE | | | THERAPY | | | BLD,POC | | | | | + +-------+ + + + + + | Specimen | + + | | + + + + + + + | Performing | Address | City/State/Zipcode | Phone Number | | Organization | | | | + + + + + | [facility] | [address] | [place], [place] | | | THERAPY | [address] | [address] | | + + + + + POTASSIUM WB, POC RESP (03/30/2013 1:53 AM PDT) + +-------+ + + + | Component | Value | Ref Range | Performed | Pathologist | | | | | At | Signature | + +-------+ + + + | POTASSIUM,W | 4.6 | 3.4 - 5.0 | [facility] | | | HL BLD, POC | | mmol/L | RESPIRATORY | | | | | | THERAPY | | + +-------+ + + + + + | Specimen | + + | | + + + + + + + | Performing | Address | City/State/Zipcode | Phone Number | | Organization | | | | + + + + + | [facility] | [address] | [place], [place] | | | THERAPY | [address] | [address] | | + + + + + SODIUM WB, POC RESP (03/30/2013 1:53 AM PDT) + +-------+ + + + | Component | Value | Ref Range | Performed | Pathologist | | | | | At | Signature | + +-------+ + + + | SODIUM, WHL | 139 | 134 - 143 | [facility] | | | BLD, POC | | mmol/L | RESPIRATORY | | | | | | THERAPY | | + +-------+ + + + + + | Specimen | + + | | + + + + + + + | Performing | Address | City/State/Zipcode | Phone Number | | Organization | | | | + + + + + | [facility] | [address] | [place], [place] | | | THERAPY | [address] | [address] | | + + + + + BLOOD GAS ART, POC RESP (03/30/2013 1:53 AM PDT) + + + + + + | Component | Value | Ref Range | Performed | Pathologist | | | | | At | Signature | + + + + + + | HCO3 | 28.7 (H) | 21 - 28 mmol/L | [facility] | | | ARTERIAL, | | | RESPIRATORY | | | POC | | | THERAPY | | + + + + + + | PCO2 | 47 (H) | 32 - 43 mmHg | [facility] | | | ARTERIAL, | | | RESPIRATORY | | | POC | | | THERAPY | | + + + + + + | PH | 7.40 | 7.37 - 7.44 | [facility] | | | ARTERIAL, | | | RESPIRATORY | | | POC | | | THERAPY | | + + + + + + | BASE EXCESS | 3.9 | | [facility] | | | ART, POC | | | RESPIRATORY | | | | | | THERAPY | | + + + + + + | CALC %O2 | 91.2 (L) | 92.0 - 98.0 % | [facility] | | | SAT ART, | | | RESPIRATORY | | | POC | | | THERAPY | | + + + + + + | PO2 | 58 (L) | 72 - 104 mmHg | [facility] | | | ARTERIAL, | | | RESPIRATORY | | | POC | | | THERAPY | | + + + + + + | FIO2 ART, | 100.0 | | [facility] | | | POC | | | RESPIRATORY | | | | | | THERAPY | | + + + + + + | PAT TEMP | 37.3 | | [facility] | | | ART, POC | | | RESPIRATORY | | | | | | THERAPY | | + + + + + + + + | Specimen | + + | | + + + + + + + | Performing | Address | City/State/Zipcode | Phone Number | | Organization | | | | + + + + + | [facility] | [address] | [place], [place] | | | THERAPY | [address] | [address] | | + + + + + X-RAY PORTABLE CHEST 1 VIEW (03/30/2013 1:51 AM PDT) + + + + + + | Component | Value | Ref Range | Performed | Pathologist | | | | | At | Signature | + + + + + + | X-RAY | EXAM: [place] CHEST 1 VIEW | | | | | PORTABLE | 03/30/13 01:51:00 | | | | | CHEST 1 | HISTORY: Hypoxia | | | | | VIEW | COMPARISON: Yesterday | | | | | | FINDINGS: The support | | | | | | equipment is unchanged. | | | | | | There has been | | | | | | interval complete | | | | | | collapseof the right | | | | | | lower and middle lobes. | | | | | | A moderate right and | | | | | | small left | | | | | | pleuraleffusion are | | | | | | unchanged. Persistent | | | | | | hydrostatic pulmonary | | | | | | edema is noted. | | | | | | Thecardiomediastinal | | | | | | silhouette is unchanged. | | | | | | There is no | | | | | | pneumothorax. | | | | | | IMPRESSION: Complete | | | | | | collapse of the right | | | | | | middle lobe and right | | | | | | lower lobe, likely | | | | | | fromcentral mucous | | | | | | plugging. Persistent, | | | | | | hydrostatic edema. | | | | | | Moderate right and small | | | | | | left pleural effusions, | | | | | | unchanged. Attending | | | | | | Radiologists: BEBO | | | | | | TIMOTHY MDAuthor: | | | | | | ANGEL CASTANEDA MD I | | | | | | have personally viewed | | | | | | this procedure/exam, | | | | | | reviewed this report, | | | | | | and madechanges to it | | | | | | where appropriate. | | | | | | Final/Electronically | | | | | | signed / BEBO | | | | | | TIMOTHY 03/30/2013 9:45 | | | | | | AM | | | | + + + + + + + + | Specimen | + + | | + + + +---------+ + + | Performing | Address | City/State/Zipcode | Phone Number | | Organization | | | | + +---------+ + + | [facility] | | | | | [facility]IOLOG[facility] | | | | + +---------+ + + TROPONIN I, PLASMA (03/30/2013 1:50 AM PDT) + +-------+ + + + | Component | Value | Ref Range | Performed | Pathologist | | | | | At | Signature | + +-------+ + + + | TROPONIN I | 0.09 | <0.80 ng/mL | [facility] | | | | | | LABORATORY | | | | | | SERVICES, | | | | | | CORE | | + +-------+ + + + + + | Specimen | + + | Blood - Blood | + + + + + + + | Performing | Address | City/State/Zipcode | Phone Number | | Organization | | | | + + + + + | [facility] | [address] | [place] [address] | | | SERVICES, CORE | [address] | | | + + + + + NT-PRO BNP (03/30/2013 1:50 AM PDT) + + + + + + | Component | Value | Ref Range | Performed | Pathologist | | | | | At | Signature | + + + + + + | NT-PRO BNP | 22,090 (H) | <449 pg/mL | [facility] | | | | | | LABORATORY | | | | | | SERVICES, | | | | | | CORE | | + + + + + + + + | Specimen | + + | Blood - Blood | + + + + + + + | Performing | Address | City/State/Zipcode | Phone Number | | Organization | | | | + + + + + | [facility] | [address] | [place] [address] | | | SERVICES, CORE | [address] | | | + + + + + CBC (HEMOGRAM) ONLY (03/30/2013 1:50 AM PDT) + + + + + + | Component | Value | Ref Range | Performed | Pathologist | | | | | At | Signature | + + + + + + | WHITE CELL | 15.36 (H) | 4.40 - 11.00 | [facility] | | | COUNT | | K/cu mm | LABORATORY | | | | | | SERVICES, | | | | | | CORE | | + + + + + + | RED CELL | 3.72 (L) | 4.00 - 5.20 | [facility] | | | COUNT | | M/cu mm | LABORATORY | | | | | | SERVICES, | | | | | | CORE | | + + + + + + | HEMOGLOBIN | 11.3 (L) | 12.0 - 16.0 | [facility] | | | | | g/dL | LABORATORY | | | | | | SERVICES, | | | | | | CORE | | + + + + + + | HEMATOCRIT | 36.1 | 36.0 - 46.0 % | [facility] | | | | | | LABORATORY | | | | | | SERVICES, | | | | | | CORE | | + + + + + + | MCV | 97.0 (H) | 80.0 - 96.0 fL | [facility] | | | | | | LABORATORY | | | | | | SERVICES, | | | | | | CORE | | + + + + + + | MCHC | 31.3 (L) | 33.0 - 35.5 | [facility] | | | | | g/dL | LABORATORY | | | | | | SERVICES, | | | | | | CORE | | + + + + + + | RDW SD | 49.6 (H) | 35.1 - 46.3 fL | [facility] | | | | | | LABORATORY | | | | | | SERVICES, | | | | | | CORE | | + + + + + + | PLATELET | 368 | 150 - 400 K/cu | [facility] | | | COUNT | | mm | LABORATORY | | | | | | SERVICES, | | | | | | CORE | | + + + + + + | MPV | 9.7 | 9.7 - 12.3 fL | [facility] | | | | | | LABORATORY | | | | | | SERVICES, | | | | | | CORE | | + + + + + + | NRBC% | 0.0 | 0.0 - 0.3 % | [facility] | | | | | | LABORATORY | | | | | | SERVICES, | | | | | | CORE | | + + + + + + | NRBC# | 0.00 | 0.00 - 0.02 | [facility] | | | | | K/cu mm | LABORATORY | | | | | | SERVICES, | | | | | | CORE | | + + + + + + + + | Specimen | + + | Blood - Blood | + + + + + | Narrative | Performed At | + + + | New methodology and reference ranges for some CBC/Differential | [facility] | | analytes in effect on 02/27/13. | LABORATORY | | | SERVICES, CORE | + + + + + + + + | Performing | Address | City/State/Zipcode | Phone Number | | Organization | | | | + + + + + | [facility] | [address] | [place] [address] | | | SERVICES, CORE | [address] | | | + + + + + PHOSPHORUS, PLASMA (03/30/2013 1:50 AM PDT) + +-------+ + + + | Component | Value | Ref Range | Performed | Pathologist | | | | | At | Signature | + +-------+ + + + | PHOSPHORUS, | 3.7 | 2.4 - 4.7 mg/dL | [facility] | | | PLASMA | | | LABORATORY | | | (LAB) | | | SERVICES, | | | | | | CORE | | + +-------+ + + + + + | Specimen | + + | Blood - Blood | + + + + + + + | Performing | Address | City/State/Zipcode | Phone Number | | Organization | | | | + + + + + | [facility] | [address] | [place] [address] | | | SERVICES, CORE | [address] | | | + + + + + MAGNESIUM, PLASMA (03/30/2013 1:50 AM PDT) + +-------+ + + + | Component | Value | Ref Range | Performed | Pathologist | | | | | At | Signature | + +-------+ + + + | MAGNESIUM,P | 2.3 | 1.8 - 2.5 mg/dL | [facility] | | | [facility] | | | LABORATORY | | | | | | SERVICES, | | | | | | CORE | | + +-------+ + + + + + | Specimen | + + | Blood - Blood | + + + + + + + | Performing | Address | City/State/Zipcode | Phone Number | | Organization | | | | + + + + + | [facility] | [address] | [place] [address] | | | SERVICES, CORE | [address] | | | + + + + + BASIC METABOLIC SET (NA, K, CL, TCO2, BUN, CR, GLU, CA) (03/30/2013 1:50 AM PDT) + + + + + + | Component | Value | Ref Range | Performed | Pathologist | | | | | At | Signature | + + + + + + | GLUCOSE, | 144 (H) | 60 - 99 mg/dL | [facility] | | | PLASMA | | | LABORATORY | | | (LAB) | | | SERVICES, | | | | | | CORE | | + + + + + + | BUN, PLASMA | 21 (H) | 6 - 20 mg/dL | [facility] | | | (LAB) | | | LABORATORY | | | | | | SERVICES, | | | | | | CORE | | + + + + + + | CREATININE | 0.55 (L) | 0.60 - 1.10 | [facility] | | | PLASMA | | mg/dL | LABORATORY | | | (LAB) | | | SERVICES, | | | | | | CORE | | + + + + + + | EGFR | >60 | >60 mL/min | [facility] | | | - | | | LABORATORY | | | [place] | | | SERVICES, | | | | | | CORE | | + + + + + + | EGFR NON | >60 | >60 mL/min | [facility] | | | -[facility]ANK[facility] | | | LABORATORY | | | [facility] | | | SERVICES, | | | | | | CORE | | + + + + + + | SODIUM, | 140 | 136 - 145 | [facility] | | | PLASMA | | mmol/L | LABORATORY | | | (LAB) | | | SERVICES, | | | | | | CORE | | + + + + + + | POTASSIUM, | 4.5 | 3.4 - 5.0 | [facility] | | | PLASMA | | mmol/L | LABORATORY | | | (LAB) | | | SERVICES, | | | | | | CORE | | + + + + + + | CHLORIDE, | 105 | 97 - 108 mmol/L | [facility] | | | PLASMA | | | LABORATORY | | | (LAB) | | | SERVICES, | | | | | | CORE | | + + + + + + | TOTAL CO2, | 29 | 21 - 32 mmol/L | [facility] | | | PLASMA | | | LABORATORY | | | (LAB) | | | SERVICES, | | | | | | CORE | | + + + + + + | CALCIUM, | 8.0 (L) | 8.6 - 10.2 | [facility] | | | PLASMA | | mg/dL | LABORATORY | | | (LAB) | | | SERVICES, | | | | | | CORE | | + + + + + + | ANION GAP | 6 | mmol/L | [facility] | | | | | | LABORATORY | | | | | | SERVICES, | | | | | | CORE | | + + + + + + | POTASSIUM | No Hemo | | [facility] | | | CMNT | | | LABORATORY | | | | | | SERVICES, | | | | | | CORE | | + + + + + + + + | Specimen | + + | Blood - Blood | + + + + + | Narrative | Performed At | + + + | GFR is estimated using the MDRD equation recommended by the | [facility] | | National Kidney Disease Education Program. Estimated GFR | LABORATORY | | Interpretive Information: <60 mL/min/1.73 sq m | SERVICES, CORE | | Chronic Kidney Disease <15 mL/min/1.73 sq m | | | Kidney Failure Estimated GFR greater that 60 mL/min/1.73 sq m is of | | | limited clinical value. The MDRD equation is not valid in the | | | following situations: - Patients under 18 years of age - Severe | | | malnutrition or obesity - Vegetarian diet - Rapidly changing kidney | | | function | | + + + + + + + + | Performing | Address | City/State/Zipcode | Phone Number | | Organization | | | | + + + + + | [facility] | [address] | [place] [address] | | | SERVICES, [place] | [address] | | | + + + + + TRANSTHORACIC ECHOCARDIOGRAM, ADULT (03/30/2013 12:00 AM PDT) + + + | Narrative | Performed At | + + + | | | | | | + + + + + | Procedure Note | + + | Lukas Alfonso - 03/30/2013 11:34 AM PDT | + + CAPILLARY BLOOD GLUCOSE (NO CHG), POC (03/29/2013 11:51 PM PDT) + +---------+ + + + | Component | Value | Ref Range | Performed | Pathologist | | | | | At | Signature | + +---------+ + + + | BLOOD | 129 (H) | 60 - 99 mg/dL | [facility] | | | GLUCOSE, | | | [facility] | | | POC | | | [facility] | | | | | | OF CARE | | | | | | TESTS | | + +---------+ + + + + + | Specimen | + + | | + + + + + + + | Performing | Address | City/State/Zipcode | Phone Number | | Organization | | | | + + + + + | [facility] | [address] | [place], [place] | | | [facility] OF CARE | [address] | [address] | | | TESTS | | | | + + + + + X-RAY PORTABLE CHEST 1 VIEW (03/29/2013 9:59 PM PDT) + + + + + + | Component | Value | Ref Range | Performed | Pathologist | | | | | At | Signature | + + + + + + | X-RAY | EXAM: NH CHEST 1 VIEW | | | | | PORTABLE | 03/29/13 21:59:00 | | | | | CHEST 1 | HISTORY: Hypoxia | | | | | VIEW | COMPARISON: Yesterday | | | | | | FINDINGS: And NG tube is | | | | | | noted within the spine. | | | | | | The right IJ central | | | | | | venous catheter | | | | | | isunchanged. A | | | | | | moderate right-sided | | | | | | pleural effusion is | | | | | | unchanged. Dense | | | | | | rightlower lobe and | | | | | | right middle lobe | | | | | | atelectasis is slightly | | | | | | improved. | | | | | | diffuseground glass | | | | | | opacification and | | | | | | vascular indistinctness | | | | | | persists. Small | | | | | | leftpleural effusion is | | | | | | noted. There is no | | | | | | pneumothorax. The | | | | | | cardiomediastinalsilhoue | | | | | | tte is unchanged. | | | | | | IMPRESSION: Persistent | | | | | | hydrostatic pulmonary | | | | | | edema. Moderate right | | | | | | and small left pleural | | | | | | effusions. Slightly | | | | | | improved dense | | | | | | atelectasis within the | | | | | | right lower lobe and | | | | | | rightmiddle lobe. | | | | | | Attending Radiologists: | | | | | | BEBO AGUIRRE, | | | | | | MDAuthor: ANGEL | | | | | | MD TONYA I have | | | | | | personally viewed this | | | | | | procedure/exam, reviewed | | | | | | this report, and | | | | | | madechanges to it where | | | | | | appropriate. | | | | | | Final/Electronically | | | | | | signed / BEBO | | | | | | TIMOTHY 03/30/2013 9:44 | | | | | | AM | | | | + + + + + + + + | Specimen | + + | | + + + +---------+ + + | Performing | Address | City/State/Zipcode | Phone Number | | Organization | | | | + +---------+ + + | [facility] | | | | | RADIOLOGY | | | | + +---------+ + + CAPILLARY BLOOD GLUCOSE (NO CHG), POC (03/29/2013 6:53 PM PDT) + +---------+ + + + | Component | Value | Ref Range | Performed | Pathologist | | | | | At | Signature | + +---------+ + + + | BLOOD | 178 (H) | 60 - 99 mg/dL | [facility] - | | | GLUCOSE, | | | [facility] | | | POC | | | [facility] | | | | | | OF CARE | | | | | | TESTS | | + +---------+ + + + + + | Specimen | + + | | + + + + + + + | Performing | Address | City/State/Zipcode | Phone Number | | Organization | | | | + + + + + | [facility] | [address] | [place], [place] | | | [facility] | [address] | [address] | | | TESTS | | | | + + + + + CT ABDOMEN & PELVIS W IV CONTRAST (03/29/2013 2:02 PM PDT) + + + + + + | Component | Value | Ref Range | Performed | Pathologist | | | | | At | Signature | + + + + + + | CT ABDOMEN | CT abdomen and pelvis | | | | | & PELVIS W | with contrast | | | | | CONTRAST | INDICATION: Eval for | | | | | | abscess COMPARISONS: | | | | | | None available | | | | | | TECHNIQUE: Helical axial | | | | | | images were obtained | | | | | | from the lung bases | | | | | | through thepubic | | | | | | symphysis following the | | | | | | IV administration of 140 | | | | | | mL Omnipaque 300. . | | | | | | 5mmaxial reconstructions | | | | | | and 5mm coronal and | | | | | | sagittal reformats. | | | | | | FINDINGS:The lung bases | | | | | | demonstrate complete | | | | | | atelectasis of the right | | | | | | middle lobe andnear | | | | | | complete atelectasis of | | | | | | the right lower lobe | | | | | | with some | | | | | | potentialconsolidation | | | | | | and air bronchograms in | | | | | | addition. Bilateral | | | | | | pleural effusionsare | | | | | | present, moderate on the | | | | | | right and small on | | | | | | left. Atelectasis of | | | | | | the leftlower lobe is | | | | | | also seen. The heart | | | | | | is enlarged. Small | | | | | | hiatal hernia | | | | | | andprobable esophageal | | | | | | reflux. The liver is | | | | | | without focal lesion. | | | | | | A portion of left | | | | | | lateral segment | | | | | | iscontained within a | | | | | | ventral hernia which | | | | | | also contains omentum. | | | | | | Gallbladdersurgically | | | | | | absent. No biliary | | | | | | dilation. Atrophic | | | | | | pancreas. The | | | | | | spleen,adrenals and | | | | | | kidneys are | | | | | | unremarkable. Stomach is | | | | | | decompressed. A | | | | | | nasogastric tube | | | | | | terminates in the | | | | | | antrum. Nosmall bowel | | | | | | dilation or wall | | | | | | thickening. The colon | | | | | | demonstrates | | | | | | numerousdiverticula. | | | | | | There is inflammation | | | | | | and wall thickening of | | | | | | the upper sigmoidcolon. | | | | | | A left pelvic pigtail | | | | | | drain is in place and | | | | | | there is no residual | | | | | | fluidor undrained | | | | | | collection. Remainder | | | | | | of the colon | | | | | | demonstrates | | | | | | right-sideddiverticula. | | | | | | No free fluid or air. | | | | | | Bladder contains a Keys | | | | | | catheter and some air. | | | | | | Uterus appears | | | | | | surgicallyabsent. | | | | | | Neither ovary is seen. | | | | | | Saccular infrarenal | | | | | | abdominal aortic | | | | | | aneurysmmeasures 4.3 x | | | | | | 3.1 cm. no enlarged | | | | | | lymph nodes. The bones | | | | | | demonstrate a right | | | | | | total hip arthroplasty. | | | | | | No suspicious | | | | | | lesion.Mild compression | | | | | | fractures of T12 and L1 | | | | | | are likely old, with | | | | | | associated | | | | | | severedegenerative | | | | | | change and scoliosis. | | | | | | IMPRESSION:1. No fluid | | | | | | in the drained left | | | | | | pelvic sidewall abscess. | | | | | | No new collection. 2. | | | | | | Bilateral effusions | | | | | | and near complete right | | | | | | middle and lower | | | | | | lobeatelectasis. | | | | | | Superimposed pneumonia | | | | | | may be present. 3. | | | | | | Saccular AAA. | | | | | | Attending Radiologists: | | | | | | NOMI MALIK MDAuthor: | | | | | | NOMI MALIK MD I have | | | | | | personally viewed this | | | | | | procedure/exam, reviewed | | | | | | this report, and | | | | | | madechanges to it where | | | | | | appropriate. | | | | | | Final/Electronically | | | | | | signed / NOMI MALIK | | | | | | 03/30/2013 9:31 AM | | | | + + + + + + + + | Specimen | + + | | + + + +---------+ + + | Performing | Address | City/State/Zipcode | Phone Number | | Organization | | | | + +---------+ + + | [facility] | | | [facility] | | | | + +---------+ + + CAPILLARY BLOOD GLUCOSE (NO CHG), POC (03/29/2013 1:21 PM PDT) + +---------+ + + + | Component | Value | Ref Range | Performed | Pathologist | | | | | At | Signature | + +---------+ + + + | BLOOD | 176 (H) | 60 - 99 mg/dL | [facility] - | | | GLUCOSE, | | | [facility] | | | POC | | | [facility] | | | | | | OF CARE | | | | | | TESTS | | + +---------+ + + + + + | Specimen | + + | | + + + + + + + | Performing | Address | City/State/Zipcode | Phone Number | | Organization | | | | + + + + + | [facility] | [address] | [place], [place] | | | [facility] | [facility] | [phone] | | | TESTS | | | | + + + + + CAPILLARY BLOOD GLUCOSE (NO CHG), POC (03/29/2013 6:20 AM PDT) + +---------+ + + + | Component | Value | Ref Range | Performed | Pathologist | | | | | At | Signature | + +---------+ + + + | BLOOD | 141 (H) | 60 - 99 mg/dL | [facility] - | | | GLUCOSE, | | | [facility] | | | POC | | | [facility] | | | | | | OF CARE | | | | | | TESTS | | + +---------+ + + + + + | Specimen | + + | | + + + + + + + | Performing | Address | City/State/Zipcode | Phone Number | | Organization | | | | + + + + + | [facility] | [address] | [place], [place] | | | [facility] | [address] | [address] | | | TESTS | | | | + + + + + 12 LEAD ECG (03/29/2013 4:55 AM PDT) + + + + + + | Component | Value | Ref Range | Performed | Pathologist | | | | | At | Signature | + + + + + + | VENTRICULAR | 107 | BPM | [facility] | | | RATE | | | OF | | | | | | CARDIOLOGY | | + + + + + + | ATRIAL RATE | 107 | BPM | [facility] | | | | | | OF | | | | | | CARDIOLOGY | | + + + + + + | P-R | 130 | ms | [facility] | | | INTERVAL | | | OF | | | | | | CARDIOLOGY | | + + + + + + | QRS | 68 | ms | [facility] | | | DURATION | | | OF | | | | | | CARDIOLOGY | | + + + + + + | QT | 336 | ms | [facility] | | | | | | OF | | | | | | CARDIOLOGY | | + + + + + + | QTC | 448 | ms | [facility] | | | | | | OF | | | | | | CARDIOLOGY | | + + + + + + | P AXIS | 51 | degrees | [facility] | | | | | | OF | | | | | | CARDIOLOGY | | + + + + + + | R AXIS | 28 | degrees | [facility] | | | | | | OF | | | | | | CARDIOLOGY | | + + + + + + | T AXIS | 56 | degrees | [facility] | | | | | | OF | | | | | | CARDIOLOGY | | + + + + + + | EKG | Sinus tachycardia with | | [facility] | | | DIAGNOSIS | occasional Premature | | OF | | | | ventricular complexes | | CARDIOLOGY | | | | and Fusion | | | | | | complexesCannot rule out | | | | | | Anterior infarct , age | | | | | | undeterminedAbnormal | | | | | | ECG"I have personally | | | | | | interpreted this report, | | | | | | either alone or with a | | | | | | trainee."Confirmed by | | | | | | AJ WOMACK ([id number]) on | | | | | | 03/29/2013 2:22:51 PM | | | | + + + + + + + + | Specimen | + + | | + + + + + | Narrative | Performed At | + + + | Please click | [facility] | | on view image for the detailed interpretation from [employer] results. | CARDIOLOGY | + + + + + | Procedure Note | + + | Interface, Cardiology Results - 03/29/2013 2:23 PM PDT Please click on view image | | for the detailed interpretation from [employer] results. | + + + + + + + | Performing | Address | City/State/Zipcode | Phone Number | | Organization | | | | + + + + + | [facility] | [address] | [place], [place] | | | CARDIOLOGY | [address] | [address] | | + + + + + CBC (HEMOGRAM) ONLY (03/29/2013 2:34 AM PDT) + + + + + + | Component | Value | Ref Range | Performed | Pathologist | | | | | At | Signature | + + + + + + | WHITE CELL | 11.81 (H) | 4.40 - 11.00 | [facility] | | | COUNT | | K/cu mm | LABORATORY | | | | | | SERVICES, | | | | | | CORE | | + + + + + + | RED CELL | 3.65 (L) | 4.00 - 5.20 | [facility] | | | COUNT | | M/cu mm | LABORATORY | | | | | | SERVICES, | | | | | | CORE | | + + + + + + | HEMOGLOBIN | 10.5 (L) | 12.0 - 16.0 | [facility] | | | | | g/dL | LABORATORY | | | | | | SERVICES, | | | | | | CORE | | + + + + + + | HEMATOCRIT | 34.7 (L) | 36.0 - 46.0 % | [facility] | | | | | | LABORATORY | | | | | | SERVICES, | | | | | | CORE | | + + + + + + | MCV | 95.1 | 80.0 - 96.0 fL | [facility] | | | | | | LABORATORY | | | | | | SERVICES, | | | | | | CORE | | + + + + + + | MCHC | 30.3 (L) | 33.0 - 35.5 | [facility] | | | | | g/dL | LABORATORY | | | | | | SERVICES, | | | | | | CORE | | + + + + + + | RDW SD | 47.6 (H) | 35.1 - 46.3 fL | [facility] | | | | | | LABORATORY | | | | | | SERVICES, | | | | | | CORE | | + + + + + + | PLATELET | 321 | 150 - 400 K/cu | [facility] | | | COUNT | | mm | LABORATORY | | | | | | SERVICES, | | | | | | CORE | | + + + + + + | MPV | 9.8 | 9.7 - 12.3 fL | [facility] | | | | | | LABORATORY | | | | | | SERVICES, | | | | | | CORE | | + + + + + + | NRBC% | 0.2 | 0.0 - 0.3 % | [facility] | | | | | | LABORATORY | | | | | | SERVICES, | | | | | | CORE | | + + + + + + | NRBC# | 0.02 | 0.00 - 0.02 | [facility] | | | | | K/cu mm | LABORATORY | | | | | | SERVICES, | | | | | | CORE | | + + + + + + + + | Specimen | + + | Blood - Blood | + + + + + | Narrative | Performed At | + + + | New methodology and reference ranges for some CBC/Differential | [facility] | | analytes in effect on 02/27/13. | LABORATORY | | | SERVICES, CORE | + + + + + + + + | Performing | Address | City/State/Zipcode | Phone Number | | Organization | | | | + + + + + | [facility] | [address] | [place] [address] | | | SERVICES, CORE | [address] | | | + + + + + PHOSPHORUS, PLASMA (03/29/2013 2:34 AM PDT) + +-------+ + + + | Component | Value | Ref Range | Performed | Pathologist | | | | | At | Signature | + +-------+ + + + | PHOSPHORUS, | 2.7 | 2.4 - 4.7 mg/dL | [facility] | | | PLASMA | | | LABORATORY | | | (LAB) | | | SERVICES, | | | | | | CORE | | + +-------+ + + + + + | Specimen | + + | Blood - Blood | + + + + + + + | Performing | Address | City/State/Zipcode | Phone Number | | Organization | | | | + + + + + | [facility] | [address] | [place] [address] | | | SERVICES, CORE | [address] | | | + + + + + MAGNESIUM, PLASMA (03/29/2013 2:34 AM PDT) + +-------+ + + + | Component | Value | Ref Range | Performed | Pathologist | | | | | At | Signature | + +-------+ + + + | MAGNESIUM,P | 2.2 | 1.8 - 2.5 mg/dL | [facility] | | | LASMA | | | LABORATORY | | | | | | SERVICES, | | | | | | CORE | | + +-------+ + + + + + | Specimen | + + | Blood - Blood | + + + + + + + | Performing | Address | City/State/Zipcode | Phone Number | | Organization | | | | + + + + + | [facility] | [address] | [place] [address] | | | SERVICES, CORE | [address] | | | + + + + + BASIC METABOLIC SET (NA, K, CL, TCO2, BUN, CR, GLU, CA) (03/29/2013 2:34 AM PDT) + + + + + + | Component | Value | Ref Range | Performed | Pathologist | | | | | At | Signature | + + + + + + | GLUCOSE, | 138 (H) | 60 - 99 mg/dL | [facility] | | | PLASMA | | | LABORATORY | | | (LAB) | | | SERVICES, | | | | | | CORE | | + + + + + + | BUN, PLASMA | 21 (H) | 6 - 20 mg/dL | [facility] | | | (LAB) | | | LABORATORY | | | | | | SERVICES, | | | | | | CORE | | + + + + + + | CREATININE | 0.53 (L) | 0.60 - 1.10 | [facility] | | | PLASMA | | mg/dL | LABORATORY | | | (LAB) | | | SERVICES, | | | | | | CORE | | + + + + + + | EGFR | >60 | >60 mL/min | [facility] | | | - | | | LABORATORY | | | [facility] | | | SERVICES, | | | | | | CORE | | + + + + + + | EGFR NON | >60 | >60 mL/min | [facility] | | | -[facility] | | | LABORATORY | | | [facility] | | | SERVICES, | | | | | | CORE | | + + + + + + | SODIUM, | 141 | 136 - 145 | [facility] | | | PLASMA | | mmol/L | LABORATORY | | | (LAB) | | | SERVICES, | | | | | | CORE | | + + + + + + | POTASSIUM, | 4.2 | 3.4 - 5.0 | [facility] | | | PLASMA | | mmol/L | LABORATORY | | | (LAB) | | | SERVICES, | | | | | | CORE | | + + + + + + | CHLORIDE, | 106 | 97 - 108 mmol/L | [facility] | | | PLASMA | | | LABORATORY | | | (LAB) | | | SERVICES, | | | | | | CORE | | + + + + + + | TOTAL CO2, | 30 | 21 - 32 mmol/L | [facility] | | | PLASMA | | | LABORATORY | | | (LAB) | | | SERVICES, | | | | | | CORE | | + + + + + + | CALCIUM, | 7.7 (L) | 8.6 - 10.2 | [facility] | | | PLASMA | | mg/dL | LABORATORY | | | (LAB) | | | SERVICES, | | | | | | CORE | | + + + + + + | ANION GAP | 5 | mmol/L | [facility] | | | | | | LABORATORY | | | | | | SERVICES, | | | | | | CORE | | + + + + + + | POTASSIUM | No Hemo | | [facility] | | | CMNT | | | LABORATORY | | | | | | SERVICES, | | | | | | CORE | | + + + + + + + + | Specimen | + + | Blood - Blood | + + + + + | Narrative | Performed At | + + + | GFR is estimated using the MDRD equation recommended by the | [facility] | | National Kidney Disease Education Program. Estimated GFR | LABORATORY | | Interpretive Information: <60 mL/min/1.73 sq m | [facility], CORE | | Chronic Kidney Disease <15 mL/min/1.73 sq m | | | Kidney Failure Estimated GFR greater that 60 mL/min/1.73 sq m is of | | | limited clinical value. The MDRD equation is not valid in the | | | following situations: - Patients under 18 years of age - Severe | | | malnutrition or obesity - Vegetarian diet - Rapidly changing kidney | | | function | | + + + + + + + + | Performing | Address | City/State/Zipcode | Phone Number | | Organization | | | | + + + + + | [facility] | [address] | [place] [address] | | | [place] [facility] | [address] | | | + + + + + CAPILLARY BLOOD GLUCOSE (NO CHG), POC (03/29/2013 1:11 AM PDT) + +---------+ + + + | Component | Value | Ref Range | Performed | Pathologist | | | | | At | Signature | + +---------+ + + + | BLOOD | 148 (H) | 60 - 99 mg/dL | [facility] | | | GLUCOSE, | | | [facility] | | | POC | | | [facility] | | | | | | OF CARE | | | | | | TESTS | | + +---------+ + + + + + | Specimen | + + | | + + + + + + + | Performing | Address | City/State/Zipcode | Phone Number | | Organization | | | | + + + + + | [facility] | [address] | [place], [place] | | | [facility] CARE | [address] | [address] | | | TESTS | | | | + + + + + VANCOMYCIN, TROUGH (03/28/2013 7:56 PM PDT) + +-------+ + + + | Component | Value | Ref Range | Performed | Pathologist | | | | | At | Signature | + +-------+ + + + | VANCOMYCIN, | 7.0 | 5.0 - 15.0 | [facility] | | | TROUGH | | ug/mL | LABORATORY | | | | | | SERVICES, | | | | | | CORE | | + +-------+ + + + + + | Specimen | + + | Blood - Blood | + + + + + + + | Performing | Address | City/State/Zipcode | Phone Number | | Organization | | | | + + + + + | [facility] | [address] | [place] [address] | | | SERVICES, CORE | [address] | | | + + + + + CAPILLARY BLOOD GLUCOSE (NO CHG), POC (03/28/2013 6:10 PM PDT) + +---------+ + + + | Component | Value | Ref Range | Performed | Pathologist | | | | | At | Signature | + +---------+ + + + | BLOOD | 142 (H) | 60 - 99 mg/dL | [facility] - | | | GLUCOSE, | | | [facility] | | | POC | | | [facility] | | | | | | OF CARE | | | | | | TESTS | | + +---------+ + + + + + | Specimen | + + | | + + + + + + + | Performing | Address | City/State/Zipcode | Phone Number | | Organization | | | | + + + + + | [facility] | [address] | [place], [place] | | | [facility] CARE | [address] | [address] | | | TESTS | | | | + + + + + BLOOD GASES, ARTERIAL - LAB (03/28/2013 5:10 PM PDT) + + + + + + | Component | Value | Ref Range | Performed | Pathologist | | | | | At | Signature | + + + + + + | PAT TEMP | 37 | Degree C | [facility] | | | ARTERIAL | | | LABORATORY | | | | | | SERVICES, | | | | | | CORE | | + + + + + + | FIO2 | 6L | | [facility] | | | ARTERIAL | | | LABORATORY | | | | | | SERVICES, | | | | | | CORE | | + + + + + + | PH ARTERIAL | 7.45 (H) | 7.37 - 7.44 | [facility] | | | | | | LABORATORY | | | | | | SERVICES, | | | | | | CORE | | + + + + + + | PCO2 | 43 | 32 - 43 mmHg | [facility] | | | ARTERIAL | | | LABORATORY | | | | | | SERVICES, | | | | | | CORE | | + + + + + + | PO2 | 84 | 72 - 104 mmHg | [facility] | | | ARTERIAL | | | LABORATORY | | | | | | SERVICES, | | | | | | CORE | | + + + + + + | HCO3 | 29 (H) | 21 - 28 mmol/L | [facility] | | | ARTERIAL | | | LABORATORY | | | | | | SERVICES, | | | | | | CORE | | + + + + + + | TOTAL CO2 | 31 (H) | 22 - 28 mmol/L | [facility] | | | ARTERIAL | | | LABORATORY | | | | | | SERVICES, | | | | | | CORE | | + + + + + + | BASE EXCESS | 5.2 | | [facility] | | | ARTERIAL | | | LABORATORY | | | | | | SERVICES, | | | | | | CORE | | + + + + + + | O2 SAT, | 96.6 | 92.0 - 98.0 | [facility] | | | ARTERIAL | | | LABORATORY | | | | | | SERVICES, | | | | | | CORE | | + + + + + + + + | Specimen | + + | Blood - Blood | + + + + + + + | Performing | Address | City/State/Zipcode | Phone Number | | Organization | | | | + + + + + | [facility] | [address] | [place] [address] | | | [place] | [address] | | | + + + + + CAPILLARY BLOOD GLUCOSE (NO CHG), POC (03/28/2013 2:09 PM PDT) + +---------+ + + + | Component | Value | Ref Range | Performed | Pathologist | | | | | At | Signature | + +---------+ + + + | BLOOD | 149 (H) | 60 - 99 mg/dL | [facility] - | | | GLUCOSE, | | | [facility] | | | POC | | | [facility] | | | | | | OF CARE | | | | | | TESTS | | + +---------+ + + + + + | Specimen | + + | | + + + + + + + | Performing | Address | City/State/Zipcode | Phone Number | | Organization | | | | + + + + + | [facility] | [address] | [place], [place] | | | [facility] | [address] | [address] | | | TESTS | | | | + + + + + X-RAY ABD LTD FEEDING TUBE EVAL PORTABLE (03/28/2013 12:41 PM PDT) + + + + + + | Component | Value | Ref Range | Performed | Pathologist | | | | | At | Signature | + + + + + + | X-RAY ABD | EXAM: NH ABD LTD | | | | | LTD FEEDING | FEEDING TUBE EVAL | | | | | TUBE EVAL | 03/28/13 12:41:00 | | | | | PORTABLE | COMPARISON: 03/28/13 at | | | | | | 9 a.m. FINDINGS: | | | | | | Enteric tube has been | | | | | | placed with it's tip | | | | | | projecting in the | | | | | | gastricbody. | | | | | | Evaluation of the | | | | | | lungs is limited as | | | | | | technique was tailored | | | | | | for feedingtube | | | | | | placement. Left lower | | | | | | lobe atelectasis is | | | | | | observed. Dense | | | | | | opacificationin the | | | | | | right middle and lower | | | | | | lobes and right pleural | | | | | | effusion are again | | | | | | noted. Linear | | | | | | radiodensity measuring | | | | | | 4.5 x 1.1 cm projects | | | | | | over the midright | | | | | | lungprobably calcified | | | | | | costal cartilages. | | | | | | IMPRESSION: Enteric tube | | | | | | tip projecting in the | | | | | | gastric body. Attending | | | | | | Radiologists: ZENOBIA | | | | | | REMI GUERREROuthor: | | | | | | ZENOBIA GUERRERO MD I | | | | | | have personally viewed | | | | | | this procedure/exam, | | | | | | reviewed this report, | | | | | | and madechanges to it | | | | | | where appropriate. | | | | | | Final/Electronically | | | | | | signed / ZENOBIA | | | | | | CESAR 03/28/2013 | | | | | | 17:03 PM | | | | + + + + + + + + | Specimen | + + | | + + + +---------+ + + | Performing | Address | City/State/Zipcode | Phone Number | | Organization | | | | + +---------+ + + | [facility] | | | | | RADIOLOGY | | | | + +---------+ + + X-RAY PORTABLE CHEST 1 VIEW (03/28/2013 9:07 AM PDT) + + + + + + | Component | Value | Ref Range | Performed | Pathologist | | | | | At | Signature | + + + + + + | X-RAY | STUDY: NH CHEST 1 VIEW | | | | | PORTABLE | 03/28/13 09:07:00 | | | | | CHEST 1 | COMPARISON: 03/27/13. | | | | | VIEW | HISTORY: Aspiration. | | | | | | FINDINGS: There is | | | | | | worsening opacification | | | | | | in the right lower lobe | | | | | | with mild shift of | | | | | | theheart and mediastinum | | | | | | to the rise, reflecting | | | | | | left retrocardiac | | | | | | opacificationand small | | | | | | left pleural effusion | | | | | | are unchanged. Right | | | | | | internal jugular line | | | | | | isin unchanged position. | | | | | | Right pleural | | | | | | effusion is increased. | | | | | | Mild | | | | | | hydrostaticpulmonary | | | | | | edema is unchanged. | | | | | | The cardiac silhouette | | | | | | is obscured. | | | | | | IMPRESSION: Interval | | | | | | development of right | | | | | | middle and lower lobes | | | | | | collapse and mild shift | | | | | | ofthe heart and | | | | | | mediastinum to the | | | | | | right. Persistent left | | | | | | lower lobeatelectasis. | | | | | | Bilateral small pleural | | | | | | effusions. Attending | | | | | | Radiologists: ZENOBIA | | | | | | REMI GUERREROuthor: | | | | | | ZENOBIA GUERRERO MD I | | | | | | have personally viewed | | | | | | this procedure/exam, | | | | | | reviewed this report, | | | | | | and madechanges to it | | | | | | where appropriate. | | | | | | Final/Electronically | | | | | | signed / ZENOBIA | | | | | | CESAR 03/28/2013 | | | | | | 17:01 PM | | | | + + + + + + + + | Specimen | + + | | + + + +---------+ + + | Performing | Address | City/State/Zipcode | Phone Number | | Organization | | | | + +---------+ + + | [facility] | | | | | RADIOLOGY | | | | + +---------+ + + CAPILLARY BLOOD GLUCOSE (NO CHG), POC (03/28/2013 5:56 AM PDT) + +---------+ + + + | Component | Value | Ref Range | Performed | Pathologist | | | | | At | Signature | + +---------+ + + + | BLOOD | 158 (H) | 60 - 99 mg/dL | [facility] - | | | GLUCOSE, | | | [facility] | | | POC | | | [facility] | | | | | | OF CARE | | | | | | TESTS | | + +---------+ + + + + + | Specimen | + + | | + + + + + + + | Performing | Address | City/State/Zipcode | Phone Number | | Organization | | | | + + + + + | [facility] | [address] | [place], [place] | | | [facility] OF CARE | [address] | [address] | | | TESTS | | | | + + + + + CBC (HEMOGRAM) ONLY (03/28/2013 1:54 AM PDT) + + + + + + | Component | Value | Ref Range | Performed | Pathologist | | | | | At | Signature | + + + + + + | WHITE CELL | 13.54 (H) | 4.40 - 11.00 | [facility] | | | COUNT | | K/cu mm | LABORATORY | | | | | | SERVICES, | | | | | | CORE | | + + + + + + | RED CELL | 3.73 (L) | 4.00 - 5.20 | [facility] | | | COUNT | | M/cu mm | LABORATORY | | | | | | SERVICES, | | | | | | CORE | | + + + + + + | HEMOGLOBIN | 11.3 (L) | 12.0 - 16.0 | [facility] | | | | | g/dL | LABORATORY | | | | | | SERVICES, | | | | | | CORE | | + + + + + + | HEMATOCRIT | 35.6 (L) | 36.0 - 46.0 % | [facility] | | | | | | LABORATORY | | | | | | SERVICES, | | | | | | CORE | | + + + + + + | MCV | 95.4 | 80.0 - 96.0 fL | [facility] | | | | | | LABORATORY | | | | | | SERVICES, | | | | | | CORE | | + + + + + + | MCHC | 31.7 (L) | 33.0 - 35.5 | [facility] | | | | | g/dL | LABORATORY | | | | | | SERVICES, | | | | | | CORE | | + + + + + + | RDW SD | 47.1 (H) | 35.1 - 46.3 fL | [facility] | | | | | | LABORATORY | | | | | | SERVICES, | | | | | | CORE | | + + + + + + | PLATELET | 330 | 150 - 400 K/cu | [facility] | | | COUNT | | mm | LABORATORY | | | | | | SERVICES, | | | | | | CORE | | + + + + + + | MPV | 10.1 | 9.7 - 12.3 fL | [facility] | | | | | | LABORATORY | | | | | | SERVICES, | | | | | | CORE | | + + + + + + | NRBC% | 0.1 | 0.0 - 0.3 % | [facility] | | | | | | LABORATORY | | | | | | SERVICES, | | | | | | CORE | | + + + + + + | NRBC# | 0.02 | 0.00 - 0.02 | [facility] | | | | | K/cu mm | LABORATORY | | | | | | SERVICES, | | | | | | CORE | | + + + + + + + + | Specimen | + + | Blood - Blood | + + + + + | Narrative | Performed At | + + + | New methodology and reference ranges for some CBC/Differential | [facility] | | analytes in effect on 02/27/13. | LABORATORY | | | SERVICES, CORE | + + + + + + + + | Performing | Address | City/State/Zipcode | Phone Number | | Organization | | | | + + + + + | [facility] | [address] | [place] [address] | | | SERVICES, CORE | [address] | | | + + + + + PHOSPHORUS, PLASMA (03/28/2013 1:54 AM PDT) + +-------+ + + + | Component | Value | Ref Range | Performed | Pathologist | | | | | At | Signature | + +-------+ + + + | PHOSPHORUS, | 3.0 | 2.4 - 4.7 mg/dL | [facility] | | | PLASMA | | | LABORATORY | | | (LAB) | | | [facility], | | | | | | CORE | | + +-------+ + + + + + | Specimen | + + | Blood - Blood | + + + + + + + | Performing | Address | City/State/Zipcode | Phone Number | | Organization | | | | + + + + + | [facility] | [address] | [place] [address] | | | SERVICES, CORE | [address] | | | + + + + + MAGNESIUM, PLASMA (03/28/2013 1:54 AM PDT) + +-------+ + + + | Component | Value | Ref Range | Performed | Pathologist | | | | | At | Signature | + +-------+ + + + | MAGNESIUM,P | 2.3 | 1.8 - 2.5 mg/dL | [facility] | | | L[facility] | | | LABORATORY | | | | | | SERVICES, | | | | | | CORE | | + +-------+ + + + + + | Specimen | + + | Blood - Blood | + + + + + + + | Performing | Address | City/State/Zipcode | Phone Number | | Organization | | | | + + + + + | [facility] | [address] | [place] [address] | | | [facility], [place] | [address] | | | + + + + + BASIC METABOLIC SET (NA, K, CL, TCO2, BUN, CR, GLU, CA) (03/28/2013 1:54 AM PDT) + + + + + + | Component | Value | Ref Range | Performed | Pathologist | | | | | At | Signature | + + + + + + | GLUCOSE, | 121 (H) | 60 - 99 mg/dL | [facility] | | | PLASMA | | | LABORATORY | | | (LAB) | | | SERVICES, | | | | | | CORE | | + + + + + + | BUN, PLASMA | 17 | 6 - 20 mg/dL | [facility] | | | (LAB) | | | LABORATORY | | | | | | SERVICES, | | | | | | CORE | | + + + + + + | CREATININE | 0.56 (L) | 0.60 - 1.10 | [facility] | | | PLASMA | | mg/dL | LABORATORY | | | (LAB) | | | SERVICES, | | | | | | CORE | | + + + + + + | EGFR | >60 | >60 mL/min | [facility] | | | - | | | LABORATORY | | | [facility] | | | SERVICES, | | | | | | CORE | | + + + + + + | EGFR NON | >60 | >60 mL/min | [facility] | | | -[facility] | | | LABORATORY | | | [facility] | | | SERVICES, | | | | | | CORE | | + + + + + + | SODIUM, | 143 | 136 - 145 | [facility] | | | PLASMA | | mmol/L | LABORATORY | | | (LAB) | | | SERVICES, | | | | | | CORE | | + + + + + + | POTASSIUM, | 4.1 | 3.4 - 5.0 | [facility] | | | PLASMA | | mmol/L | LABORATORY | | | (LAB) | | | SERVICES, | | | | | | CORE | | + + + + + + | CHLORIDE, | 105 | 97 - 108 mmol/L | [facility] | | | PLASMA | | | LABORATORY | | | (LAB) | | | SERVICES, | | | | | | CORE | | + + + + + + | TOTAL CO2, | 31 | 21 - 32 mmol/L | [facility] | | | PLASMA | | | LABORATORY | | | (LAB) | | | SERVICES, | | | | | | CORE | | + + + + + + | CALCIUM, | 8.0 (L) | 8.6 - 10.2 | [facility] | | | PLASMA | | mg/dL | LABORATORY | | | (LAB) | | | SERVICES, | | | | | | CORE | | + + + + + + | ANION GAP | 7 | mmol/L | [facility] | | | | | | LABORATORY | | | | | | SERVICES, | | | | | | CORE | | + + + + + + | POTASSIUM | No Hemo | | [facility] | | | CMNT | | | LABORATORY | | | | | | SERVICES, | | | | | | CORE | | + + + + + + + + | Specimen | + + | Blood - Blood | + + + + + | Narrative | Performed At | + + + | GFR is estimated using the MDRD equation recommended by the | [facility] | | National Kidney Disease Education Program. Estimated GFR | LABORATORY | | Interpretive Information: <60 mL/min/1.73 sq m | SERVICES, CORE | | Chronic Kidney Disease <15 mL/min/1.73 sq m | | | Kidney Failure Estimated GFR greater that 60 mL/min/1.73 sq m is of | | | limited clinical value. The MDRD equation is not valid in the | | | following situations: - Patients under 18 years of age - Severe | | | malnutrition or obesity - Vegetarian diet - Rapidly changing kidney | | | function | | + + + + + + + + | Performing | Address | City/State/Zipcode | Phone Number | | Organization | | | | + + + + + | [facility] | [address] | [place] [address] | | | SERVICES, [place] | [address] | | | + + + + + CAPILLARY BLOOD GLUCOSE (NO CHG), POC (03/27/2013 11:54 PM PDT) + +---------+ + + + | Component | Value | Ref Range | Performed | Pathologist | | | | | At | Signature | + +---------+ + + + | BLOOD | 163 (H) | 60 - 99 mg/dL | [facility] | | | GLUCOSE, | | | [facility] | | | POC | | | [facility] | | | | | | OF CARE | | | | | | TESTS | | + +---------+ + + + + + | Specimen | + + | | + + + + + + + | Performing | Address | City/State/Zipcode | Phone Number | | Organization | | | | + + + + + | [facility] | [address] | [place], [place] | | | [facility] | [address] | [address] | | | TESTS | | | | + + + + + CAPILLARY BLOOD GLUCOSE (NO CHG), POC (03/27/2013 5:42 PM PDT) + +---------+ + + + | Component | Value | Ref Range | Performed | Pathologist | | | | | At | Signature | + +---------+ + + + | BLOOD | 189 (H) | 60 - 99 mg/dL | [facility] | | | GLUCOSE, | | | [facility] | | | POC | | | [facility] | | | | | | OF CARE | | | | | | TESTS | | + +---------+ + + + + + | Specimen | + + | | + + + + + + + | Performing | Address | City/State/Zipcode | Phone Number | | Organization | | | | + + + + + | [facility] | [address] | [place], [place] | | | [facility] | [address] | [phone] | | | TESTS | | | | + + + + + TROPONIN I, PLASMA (03/27/2013 5:42 PM PDT) + +-------+ + + + | Component | Value | Ref Range | Performed | Pathologist | | | | | At | Signature | + +-------+ + + + | TROPONIN I | 0.28 | <0.80 ng/mL | [facility] | | | | | | [facility]ORAT[facility] | | | | | | SERVICES, | | | | | | CORE | | + +-------+ + + + + + | Specimen | + + | Blood - Blood | + + + + + + + | Performing | Address | City/State/Zipcode | Phone Number | | Organization | | | | + + + + + | [facility] | [address] | [place] [address] | | | SERVICES, [place] | [address] | | | + + + + + X-RAY PORTABLE CHEST 1 VIEW (03/27/2013 1:36 PM PDT) + + + + + + | Component | Value | Ref Range | Performed | Pathologist | | | | | At | Signature | + + + + + + | X-RAY | AP chest Comparison: | | | | | PORTABLE | Yesterday History: | | | | | CHEST 1 | Recurrent aspiration | | | | | VIEW | Impression: Increased | | | | | | bibasilar consolidation | | | | | | and groundglass opacity | | | | | | as wellas layering | | | | | | effusions are compatible | | | | | | with evolving | | | | | | aspiration | | | | | | pneumonitis.Airway | | | | | | thickening and chronic | | | | | | obstructive pulmonary | | | | | | physiology are again | | | | | | noted. Cardiac and | | | | | | mediastinal contours are | | | | | | obscured. Attending | | | | | | Radiologists: GREY | | | | | | REMI BAZZIuthor: GREY | | | | | | MD ROSE MARY I have | | | | | | personally viewed this | | | | | | procedure/exam, reviewed | | | | | | this report, and | | | | | | madechanges to it where | | | | | | appropriate. | | | | | | Final/Electronically | | | | | | signed / GREY BAZZI | | | | | | 03/27/2013 14:16 PM | | | | + + + + + + + + | Specimen | + + | | + + + +---------+ + + | Performing | Address | City/State/Zipcode | Phone Number | | Organization | | | | + +---------+ + + | [facility] DEPARTMENT OF | | | | | RADIOLOGY | | | | + +---------+ + + CT ABDOMEN & PELVIS W IV CONTRAST (03/27/2013 1:11 PM PDT) + + + + + + | Component | Value | Ref Range | Performed | Pathologist | | | | | At | Signature | + + + + + + | CT ABDOMEN | CT abdomen and pelvis | | | | | & PELVIS W | with contrast. | | | | | CONTRAST | INDICATION: Eval abscess | | | | | | size and echogenic. | | | | | | TECHNIQUE: [employer] imaging | | | | | | of the abdomen and | | | | | | pelvis was performed. | | | | | | During powerinjection | | | | | | the left antecubital IV | | | | | | infiltrated 25 mL of | | | | | | Omnipaque 300 | | | | | | contrast.The scan was | | | | | | stopped and the patient | | | | | | was evaluated per | | | | | | infiltration protocol. | | | | | | No diagnostic imaging | | | | | | was obtained. | | | | | | IMPRESSION:Nondiagnostic | | | | | | scanned because of IV | | | | | | infiltration. Attending | | | | | | Radiologists: NOMI | | | | | | REMI MALIKuthor: NOMI | | | | | | MD KING I have | | | | | | personally viewed this | | | | | | procedure/exam, reviewed | | | | | | this report, and | | | | | | madechanges to it where | | | | | | appropriate. | | | | | | Final/Electronically | | | | | | signed / NOMI MALIK | Christiano | | | | 03/27/2013 13:25 PM | | | | + + + + + + + + | Specimen | + + | | + + + +---------+ + + | Performing | Address | City/State/Zipcode | Phone Number | | Organization | | | | + +---------+ + + | [facility] | | | | | RADIOLOGY | | | | + +---------+ + + 12 LEAD ECG (03/27/2013 1:10 PM PDT) + + + + + + | Component | Value | Ref Range | Performed | Pathologist | | | | | At | Signature | + + + + + + | VENTRICULAR | 111 | BPM | [facility] | | | RATE | | | OF | | | | | | CARDIOLOGY | | + + + + + + | ATRIAL RATE | 111 | BPM | [facility] | | | | | | OF | | | | | | CARDIOLOGY | | + + + + + + | P-R | 128 | ms | [facility] | | | INTERVAL | | | OF | | | | | | CARDIOLOGY | | + + + + + + | QRS | 68 | ms | [facility] | | | DURATION | | | OF | | | | | | CARDIOLOGY | | + + + + + + | QT | 386 | ms | [facility] | | | | | | OF | | | | | | CARDIOLOGY | | + + + + + + | QTC | 524 | ms | [facility] | | | | | | OF | | | | | | CARDIOLOGY | | + + + + + + | P AXIS | 56 | degrees | [facility] | | | | | | OF | | | | | | CARDIOLOGY | | + + + + + + | R AXIS | 56 | degrees | [facility] | | | | | | OF | | | | | | CARDIOLOGY | | + + + + + + | T AXIS | 136 | degrees | [facility] | | | | | | OF | | | | | | CARDIOLOGY | | + + + + + + | EKG | Sinus tachycardiaT wave | | [facility] | | | DIAGNOSIS | abnormality, consider | | OF | | | | anterolateral | | CARDIOLOGY | | | | ischemiaAbnormal ECG"I | | | | | | have personally | | | | | | interpreted this report, | | | | | | either alone or with a | | | | | | trainee."Confirmed by | | | | | | AJ WOMACK ([id number]) on | | | | | | 03/29/2013 2:10:24 PM | | | | + + + + + + + + | Specimen | + + | | + + + + + | Narrative | Performed At | + + + | Please click | [facility] | | on view image for the detailed interpretation from [employer] results. | CARDIOLOGY | + + + + + | Procedure Note | + + | Interface, Cardiology Results - 03/29/2013 2:10 PM PDT Please click on view image | | for the detailed interpretation from [employer] results. | + + + + + + + | Performing | Address | City/State/Zipcode | Phone Number | | Organization | | | | + + + + + | [facility] | [address] | [place], [place] | | | CARDIOLOGY | [address] | [address] | | + + + + + TROPONIN I, PLASMA (03/27/2013 11:15 AM PDT) + +-------+ + + + | Component | Value | Ref Range | Performed | Pathologist | | | | | At | Signature | + +-------+ + + + | TROPONIN I | 0.34 | <0.80 ng/mL | [facility] | | | | | | LABORATORY | | | | | | SERVICES, | | | | | | CORE | | + +-------+ + + + + + | Specimen | + + | Blood - Blood | + + + + + + + | Performing | Address | City/State/Zipcode | Phone Number | | Organization | | | | + + + + + | [facility] | [address] | [place] [address] | | | [place] | [address] | | | + + + + + CAPILLARY BLOOD GLUCOSE (NO CHG), POC (03/27/2013 11:14 AM PDT) + +---------+ + + + | Component | Value | Ref Range | Performed | Pathologist | | | | | At | Signature | + +---------+ + + + | BLOOD | 123 (H) | 60 - 99 mg/dL | [facility] - | | | GLUCOSE, | | | [facility] | | | POC | | | [facility] | | | | | | OF CARE | | | | | | TESTS | | + +---------+ + + + + + | Specimen | + + | | + + + + + + + | Performing | Address | City/State/Zipcode | Phone Number | | Organization | | | | + + + + + | [facility] | [address] | [place], [place] | | | [facility] | [address] | [address] | | | TESTS | | | | + + + + + CAPILLARY BLOOD GLUCOSE (NO CHG), POC (03/27/2013 5:22 AM PDT) + +---------+ + + + | Component | Value | Ref Range | Performed | Pathologist | | | | | At | Signature | + +---------+ + + + | BLOOD | 160 (H) | 60 - 99 mg/dL | [facility] - | | | GLUCOSE, | | | [facility] | | | POC | | | [facility] | | | | | | OF CARE | | | | | | TESTS | | + +---------+ + + + + + | Specimen | + + | | + + + + + + + | Performing | Address | City/State/Zipcode | Phone Number | | Organization | | | | + + + + + | [facility] | [address] | [place], [place] | | | [place] | [facility] | [address] | | | TESTS | | | | + + + + + CBC (HEMOGRAM) ONLY (03/27/2013 3:13 AM PDT) + + + + + + | Component | Value | Ref Range | Performed | Pathologist | | | | | At | Signature | + + + + + + | WHITE CELL | 14.83 (H) | 4.40 - 11.00 | [facility] | | | COUNT | | K/cu mm | LABORATORY | | | | | | SERVICES, | | | | | | CORE | | + + + + + + | RED CELL | 4.14 | 4.00 - 5.20 | [facility] | | | COUNT | | M/cu mm | LABORATORY | | | | | | SERVICES, | | | | | | CORE | | + + + + + + | HEMOGLOBIN | 12.4 | 12.0 - 16.0 | [facility] | | | | | g/dL | LABORATORY | | | | | | SERVICES, | | | | | | CORE | | + + + + + + | HEMATOCRIT | 38.7 | 36.0 - 46.0 % | [facility] | | | | | | LABORATORY | | | | | | SERVICES, | | | | | | CORE | | + + + + + + | MCV | 93.5 | 80.0 - 96.0 fL | [facility] | | | | | | LABORATORY | | | | | | SERVICES, | | | | | | CORE | | + + + + + + | MCHC | 32.0 (L) | 33.0 - 35.5 | [facility] | | | | | g/dL | LABORATORY | | | | | | SERVICES, | | | | | | CORE | | + + + + + + | RDW SD | 45.9 | 35.1 - 46.3 fL | [facility] | | | | | | LABORATORY | | | | | | SERVICES, | | | | | | CORE | | + + + + + + | PLATELET | 327 | 150 - 400 K/cu | [facility] | | | COUNT | | mm | LABORATORY | | | | | | SERVICES, | | | | | | CORE | | + + + + + + | MPV | 10.0 | 9.7 - 12.3 fL | [facility] | | | | | | LABORATORY | | | | | | SERVICES, | | | | | | CORE | | + + + + + + | NRBC% | 0.0 | 0.0 - 0.3 % | [facility] | | | | | | LABORATORY | | | | | | SERVICES, | | | | | | CORE | | + + + + + + | NRBC# | 0.00 | 0.00 - 0.02 | [facility] | | | | | K/cu mm | LABORATORY | | | | | | SERVICES, | | | | | | CORE | | + + + + + + + + | Specimen | + + | Blood - Blood | + + + + + | Narrative | Performed At | + + + | New methodology and reference ranges for some CBC/Differential | [facility] | | analytes in effect on 02/27/13. | LABORATORY | | | SERVICES, CORE | + + + + + + + + | Performing | Address | City/State/Zipcode | Phone Number | | Organization | | | | + + + + + | [facility] | [address] | [place] [address] | | | SERVICES, CORE | [address] | | | + + + + + PHOSPHORUS, PLASMA (03/27/2013 3:13 AM PDT) + +-------+ + + + | Component | Value | Ref Range | Performed | Pathologist | | | | | At | Signature | + +-------+ + + + | PHOSPHORUS, | 3.6 | 2.4 - 4.7 mg/dL | [facility] | | | PLASMA | | | LABORATORY | | | (LAB) | | | SERVICES, | | | | | | CORE | | + +-------+ + + + + + | Specimen | + + | Blood - Blood | + + + + + + + | Performing | Address | City/State/Zipcode | Phone Number | | Organization | | | | + + + + + | [facility] | [address] | [place] [address] | | | SERVICES, CORE | [address] | | | + + + + + MAGNESIUM, PLASMA (03/27/2013 3:13 AM PDT) + +-------+ + + + | Component | Value | Ref Range | Performed | Pathologist | | | | | At | Signature | + +-------+ + + + | MAGNESIUM,P | 2.1 | 1.8 - 2.5 mg/dL | [facility] | | | LASMA | | | LABORATORY | | | | | | SERVICES, | | | | | | CORE | | + +-------+ + + + + + | Specimen | + + | Blood - Blood | + + + + + + + | Performing | Address | City/State/Zipcode | Phone Number | | Organization | | | | + + + + + | [facility] | [address] | [place] [address] | | | SERVICES, CORE | [address] | | | + + + + + BASIC METABOLIC SET (NA, K, CL, TCO2, BUN, CR, GLU, CA) (03/27/2013 3:13 AM PDT) + +---------+ + + + | Component | Value | Ref Range | Performed | Pathologist | | | | | At | Signature | + +---------+ + + + | GLUCOSE, | 158 (H) | 60 - 99 mg/dL | [facility] | | | PLASMA | | | LABORATORY | | | (LAB) | | | SERVICES, | | | | | | CORE | | + +---------+ + + + | BUN, PLASMA | 13 | 6 - 20 mg/dL | [facility] | | | (LAB) | | | LABORATORY | | | | | | SERVICES, | | | | | | CORE | | + +---------+ + + + | CREATININE | 0.62 | 0.60 - 1.10 | [facility] | | | PLASMA | | mg/dL | LABORATORY | | | (LAB) | | | SERVICES, | | | | | | CORE | | + +---------+ + + + | EGFR | >60 | >60 mL/min | [facility] | | | - | | | LABORATORY | | | [place] | | | SERVICES, | | | | | | CORE | | + +---------+ + + + | EGFR NON | >60 | >60 mL/min | [facility] | | | -[facility]ANKA | | | LABORATORY | | | [facility] | | | SERVICES, | | | | | | CORE | | + +---------+ + + + | SODIUM, | 142 | 136 - 145 | [facility] | | | PLASMA | | mmol/L | LABORATORY | | | (LAB) | | | SERVICES, | | | | | | CORE | | + +---------+ + + + | POTASSIUM, | 4.0 | 3.4 - 5.0 | [facility] | | | PLASMA | | mmol/L | LABORATORY | | | (LAB) | | | SERVICES, | | | | | | CORE | | + +---------+ + + + | CHLORIDE, | 102 | 97 - 108 mmol/L | [facility] | | | PLASMA | | | LABORATORY | | | (LAB) | | | SERVICES, | | | | | | CORE | | + +---------+ + + + | TOTAL CO2, | 30 | 21 - 32 mmol/L | [facility] | | | PLASMA | | | LABORATORY | | | (LAB) | | | SERVICES, | | | | | | CORE | | + +---------+ + + + | CALCIUM, | 7.8 (L) | 8.6 - 10.2 | [facility] | | | PLASMA | | mg/dL | LABORATORY | | | (LAB) | | | SERVICES, | | | | | | CORE | | + +---------+ + + + | ANION GAP | 10 | mmol/L | [facility] | | | | | | LABORATORY | | | | | | SERVICES, | | | | | | CORE | | + +---------+ + + + | POTASSIUM | No Hemo | | [facility] | | | CMNT | | | LABORATORY | | | | | | SERVICES, | | | | | | CORE | | + +---------+ + + + + + | Specimen | + + | Blood - Blood | + + + + + | Narrative | Performed At | + + + | GFR is estimated using the MDRD equation recommended by the | [facility] | | National Kidney Disease Education Program. Estimated GFR | LABORATORY | | Interpretive Information: <60 mL/min/1.73 sq m | SERVICES, CORE | | Chronic Kidney Disease <15 mL/min/1.73 sq m | | | Kidney Failure Estimated GFR greater that 60 mL/min/1.73 sq m is of | | | limited clinical value. The MDRD equation is not valid in the | | | following situations: - Patients under 18 years of age - Severe | | | malnutrition or obesity - Vegetarian diet - Rapidly changing kidney | | | function | | + + + + + + + + | Performing | Address | City/State/Zipcode | Phone Number | | Organization | | | | + + + + + | [facility] | [address] | [place] [address] | | | SERVICES, CORE | [address] | | | + + + + + TROPONIN I, PLASMA (03/27/2013 3:13 AM PDT) + +-------+ + + + | Component | Value | Ref Range | Performed | Pathologist | | | | | At | Signature | + +-------+ + + + | TROPONIN I | 0.36 | <0.80 ng/mL | [facility] | | | | | | LABORATORY | | | | | | SERVICES, | | | | | | CORE | | + +-------+ + + + + + | Specimen | + + | Blood - Blood | + + + + + + + | Performing | Address | City/State/Zipcode | Phone Number | | Organization | | | | + + + + + | [facility] | [address] | [place] [address] | | | SERVICES, [place] | [address] | | | + + + + + US DOPPLER LOWER EXTREMITY BILAT (03/27/2013 1:18 AM PDT) + + + + + + | Component | Value | Ref Range | Performed | Pathologist | | | | | At | Signature | + + + + + + | US DOPPLER | History: Evaluate for | | | | | LOWER EXT | DVT. Technique: | | | | | BILAT | Ultrasound examination | | | | | | of the lower extremity | | | | | | venous systems was | | | | | | performedbilaterally | | | | | | using grayscale, color | | | | | | and spectral Doppler. | | | | | | Comparison: None. | | | | | | Findings: The common | | | | | | femoral, superficial | | | | | | femoral and popliteal | | | | | | veinsdemonstrate a | | | | | | normal response to | | | | | | augmentation and | | | | | | compression maneuvers. | | | | | | Thereis also a normal | | | | | | response to respiratory | | | | | | variation. Flow is | | | | | | identified inthese | | | | | | vessels with no evidence | | | | | | of intraluminal | | | | | | thrombus on either color | | | | | | Doppleror grayscale | | | | | | images. Impression: No | | | | | | evidence of bilateral | | | | | | lower extremity deep | | | | | | venous thrombosis. | | | | | | Attending Radiologists: | | | | | | JOCELYNE LOZANO MDAuthor: | | | | | | EDGAR SANTIAGO MD I have | | | | | | personally viewed this | | | | | | procedure/exam, reviewed | | | | | | this report, and | | | | | | madechanges to it where | | | | | | appropriate. | | | | | | Final/Electronically | | | | | | signed / JOCELYNE LOZANO | | | | | | 03/27/2013 8:44 AM | | | | | | Pending final approval | | | | | | / EDGAR SANTIAGO | | | | | | 03/27/2013 1:28 AM | | | | | | Preliminary / EDGAR | | | | | | JACK 03/27/2013 1:27 | | | | | | AM | | | | + + + + + + + + | Specimen | + + | | + + + +---------+ + + | Performing | Address | City/State/Zipcode | Phone Number | | Organization | | | | + +---------+ + + | [facility] | | | | [facility]OLOG[facility] | | | | + +---------+ + + CAPILLARY BLOOD GLUCOSE (NO CHG), POC (03/27/2013 12:03 AM PDT) + +---------+ + + + | Component | Value | Ref Range | Performed | Pathologist | | | | | At | Signature | + +---------+ + + + | BLOOD | 164 (H) | 60 - 99 mg/dL | [facility] - | | | GLUCOSE, | | | [facility] | | | POC | | | [facility] | | | | | | OF CARE | | | | | | TESTS | | + +---------+ + + + + + | Specimen | + + | | + + + + + + + | Performing | Address | City/State/Zipcode | Phone Number | | Organization | | | | + + + + + | [facility] | [address] | [place], [place] | | | [facility] [place] | [address] | [address] | | | TESTS | | | | + + + + + C. DIFFICILE TOXIN (03/26/2013 11:54 PM PDT) + + + + + + | Component | Value | Ref Range | Performed | Pathologist | | | | | At | Signature | + + + + + + | C.DIFFICILE | Negative | Negative | [facility] | | | TOXIN | | | LABORATORY | | | | | | SERVICES, | | | | | | CORE | | + + + + + + + + | Specimen | + + | Stool - Rectum | + + + + + + + | Performing | Address | City/State/Zipcode | Phone Number | | Organization | | | | + + + + + | [facility] | [address] | [place] [address] | | | SERVICES, CORE | [address] | | | + + + + + X-RAY PORTABLE CHEST 1 VIEW (03/26/2013 10:36 PM PDT) + + + + + + | Component | Value | Ref Range | Performed | Pathologist | | | | | At | Signature | + + + + + + | X-RAY | STUDY: NH CHEST 1 VIEW | | | | | PORTABLE | 03/26/13 22:36:00 | | | | | CHEST 1 | COMPARISON: Earlier same | | | | | VIEW | day. HISTORY: | | | | | | Tachypnea, history of | | | | | | sepsis. FINDINGS: Right | | | | | | IJ line is unchanged. | | | | | | The cardiomediastinal | | | | | | silhouette is | | | | | | unchanged.The right | | | | | | perihilar consolidative | | | | | | opacity has worsened | | | | | | slightly from | | | | | | prior.Septal lines, | | | | | | bibasilar groundglass, | | | | | | and vascular | | | | | | indistinctness is | | | | | | againnoted. Small | | | | | | bilateral pleural | | | | | | effusions are present. | | | | | | There is | | | | | | nopneumothorax. | | | | | | IMPRESSION: Worsening | | | | | | right perihilar | | | | | | consolidation is | | | | | | concerning for an | | | | | | evolving pneumonia. Mild | | | | | | hydrostatic pulmonary | | | | | | edema with small | | | | | | bilateral pleural | | | | | | effusions. Attending | | | | | | Radiologists: LEXI Mc | | | | | | REMI MCNEILLuthor: | | | | | | ANGEL CASTANEDA MD I | | | | | | have personally viewed | | | | | | this procedure/exam, | | | | | | reviewed this report, | | | | | | and madechanges to it | | | | | | where appropriate. | | | | | | Final/Electronically | | | | | | signed / LEXI Mc | | | | | | OSITO 03/27/2013 | | | | | | 10:22 AM | | | | + + + + + + + + | Specimen | + + | | + + + +---------+ + + | Performing | Address | City/State/Zipcode | Phone Number | | Organization | | | | + +---------+ + + | [facility] | | | | | RADIOLOGY | | | | + +---------+ + + BLOOD GASES, ARTERIAL - LAB (03/26/2013 8:38 PM PDT) + + + + + + | Component | Value | Ref Range | Performed | Pathologist | | | | | At | Signature | + + + + + + | PAT TEMP | | Degree C | [facility] | | | ARTERIAL | | | LABORATORY | | | | | | SERVICES, | | | | | | CORE | | + + + + + + | FIO2 | | | [facility] | | | ARTERIAL | | | LABORATORY | | | | | | SERVICES, | | | | | | CORE | | + + + + + + | PH ARTERIAL | 7.46 (H) | 7.37 - 7.44 | [facility] | | | | | | LABORATORY | | | | | | SERVICES, | | | | | | CORE | | + + + + + + | PCO2 | 40 | 32 - 43 mmHg | [facility] | | | ARTERIAL | | | LABORATORY | | | | | | SERVICES, | | | | | | CORE | | + + + + + + | PO2 | 87 | 72 - 104 mmHg | [facility] | | | ARTERIAL | | | LABORATORY | | | | | | SERVICES, | | | | | | CORE | | + + + + + + | HCO3 | 28 | 21 - 28 mmol/L | [facility] | | | ARTERIAL | | | LABORATORY | | | | | | SERVICES, | | | | | | CORE | | + + + + + + | TOTAL CO2 | 29 (H) | 22 - 28 mmol/L | [facility] | | | ARTERIAL | | | LABORATORY | | | | | | SERVICES, | | | | | | CORE | | + + + + + + | BASE EXCESS | 4.3 | | [facility] | | | ARTERIAL | | | LABORATORY | | | | | | SERVICES, | | | | | | CORE | | + + + + + + | O2 SAT, | 97.0 | 92.0 - 98.0 | [facility] | | | ARTERIAL | | | LABORATORY | | | | | | SERVICES, | | | | | | CORE | | + + + + + + + + | Specimen | + + | Blood - Blood | + + + + + + + | Performing | Address | City/State/Zipcode | Phone Number | | Organization | | | | + + + + + | [facility] | [address] | [place] [address] | | | SERVICES, CORE | [address] | | | + + + + + 12 LEAD ECG (03/26/2013 7:45 PM PDT) + + + + + + | Component | Value | Ref Range | Performed | Pathologist | | | | | At | Signature | + + + + + + | VENTRICULAR | 107 | BPM | [facility] | | | RATE | | | OF | | | | | | CARDIOLOGY | | + + + + + + | ATRIAL RATE | 107 | BPM | [facility] | | | | | | OF | | | | | | CARDIOLOGY | | + + + + + + | P-R | 130 | ms | [facility] | | | INTERVAL | | | OF | | | | | | CARDIOLOGY | | + + + + + + | QRS | 68 | ms | [facility] | | | DURATION | | | OF | | | | | | CARDIOLOGY | | + + + + + + | QT | 370 | ms | [facility] | | | | | | OF | | | | | | CARDIOLOGY | | + + + + + + | QTC | 493 | ms | [facility] | | | | | | OF | | | | | | CARDIOLOGY | | + + + + + + | P AXIS | 53 | degrees | [facility] | | | | | | OF | | | | | | CARDIOLOGY | | + + + + + + | R AXIS | 44 | degrees | [facility] | | | | | | OF | | | | | | CARDIOLOGY | | + + + + + + | T AXIS | 141 | degrees | [facility] | | | | | | OF | | | | | | CARDIOLOGY | | + + + + + + | EKG | Sinus tachycardiaLow | | [facility] | | | DIAGNOSIS | voltage QRSCannot rule | | OF | | | | out Anterior infarct , | | CARDIOLOGY | | | | age undeterminedT wave | | | | | | abnormality, consider | | | | | | lateral ischemiaAbnormal | | | | | | ECG"I have personally | | | | | | interpreted this report, | | | | | | either alone or with a | | | | | | trainee."Confirmed by | | | | | | SCOTT CHADWICK ([id number]) on | | | | | | 03/27/2013 11:16:44 PM | | | | + + + + + + + + | Specimen | + + | | + + + + + | Narrative | Performed At | + + + | Please click | [facility] | | on view image for the detailed interpretation from [employer] results. | CARDIOLOGY | + + + + + | Procedure Note | + + | Interface, Cardiology Results - 03/27/2013 11:16 PM PDT Please click on view image | | for the detailed interpretation from [employer] results. | + + + + + + + | Performing | Address | City/State/Zipcode | Phone Number | | Organization | | | | + + + + + | [facility] | [address] | [place], [place] | | | CARDIOLOGY | [address] | [address] | | + + + + + 12 LEAD ECG (03/26/2013 7:44 PM PDT) + + + + + + | Component | Value | Ref Range | Performed | Pathologist | | | | | At | Signature | + + + + + + | VENTRICULAR | 107 | BPM | [facility] | | | RATE | | | OF | | | | | | CARDIOLOGY | | + + + + + + | ATRIAL RATE | 107 | BPM | [facility] | | | | | | OF | | | | | | CARDIOLOGY | | + + + + + + | P-R | 134 | ms | [facility] | | | INTERVAL | | | OF | | | | | | CARDIOLOGY | | + + + + + + | QRS | 64 | ms | [facility] | | | DURATION | | | OF | | | | | | CARDIOLOGY | | + + + + + + | QT | 372 | ms | [facility] | | | | | | OF | | | | | | CARDIOLOGY | | + + + + + + | QTC | 496 | ms | [facility] | | | | | | OF | | | | | | CARDIOLOGY | | + + + + + + | P AXIS | 65 | degrees | [facility] | | | | | | OF | | | | | | CARDIOLOGY | | + + + + + + | R AXIS | 50 | degrees | [facility] | | | | | | OF | | | | | | CARDIOLOGY | | + + + + + + | T AXIS | 141 | degrees | [facility] | | | | | | OF | | | | | | CARDIOLOGY | | + + + + + + | EKG | Sinus tachycardiaLow | | [facility] | | | DIAGNOSIS | voltage QRSCannot rule | | OF | | | | out Anterior infarct , | | CARDIOLOGY | | | | age undeterminedT wave | | | | | | abnormality, consider | | | | | | lateral ischemiaAbnormal | | | | | | ECG"I have personally | | | | | | interpreted this report, | | | | | | either alone or with a | | | | | | trainee."Confirmed by | | | | | | SCOTT CHADWICK ([id number]) on | | | | | | 03/27/2013 11:16:29 PM | | | | + + + + + + + + | Specimen | + + | | + + + + + | Narrative | Performed At | + + + | Please click | [facility] | | on view image for the detailed interpretation from [employer] results. | CARDIOLOGY | + + + + + | Procedure Note | + + | Interface, Cardiology Results - 03/27/2013 11:16 PM PDT Please click on view image | | for the detailed interpretation from [employer] results. | + + + + + + + | Performing | Address | City/State/Zipcode | Phone Number | | Organization | | | | + + + + + | [facility] | [address] | [place], [place] | | | CARDIOLOGY | [facility] | [address] | | + + + + + CAPILLARY BLOOD GLUCOSE (NO CHG), POC (03/26/2013 7:32 PM PDT) + +---------+ + + + | Component | Value | Ref Range | Performed | Pathologist | | | | | At | Signature | + +---------+ + + + | BLOOD | 177 (H) | 60 - 99 mg/dL | [facility] - | | | GLUCOSE, | | | [facility] | | | POC | | | [facility] | | | | | | OF CARE | | | | | | TESTS | | + +---------+ + + + + + | Specimen | + + | | + + + + + + + | Performing | Address | City/State/Zipcode | Phone Number | | Organization | | | | + + + + + | [facility] | [address] | [place], [place] | | | [facility] | [address] | [address] | | | TESTS | | | | + + + + + LIVER SET (AST,ALT,BILI TOTAL,BILI DIRECT,ALK PHOS,ALB,PROT TOTAL) (03/26/2013 7:17 PM PDT ) + +---------+ + + + | Component | Value | Ref Range | Performed | Pathologist | | | | | At | Signature | + +---------+ + + + | ALBUMIN, | 2.7 (L) | 3.5 - 4.7 g/dL | [facility] | | | PLASMA | | | LABORATORY | | | (LAB) | | | SERVICES, | | | | | | CORE | | + +---------+ + + + | BILIRUBIN | 0.3 | 0.3 - 1.2 mg/dL | [facility] | | | TOTAL | | | LABORATORY | | | | | | SERVICES, | | | | | | CORE | | + +---------+ + + + | BILIRUBIN | <0.1 | 0.0 - 0.3 mg/dL | [facility] | | | DIRECT | | | LABORATORY | | | | | | SERVICES, | | | | | | CORE | | + +---------+ + + + | ALK PHOS | 94 | 53 - 141 U/L | [facility] | | | | | | LABORATORY | | | | | | SERVICES, | | | | | | CORE | | + +---------+ + + + | AST(SGOT) | 41 | 15 - 41 U/L | [facility] | | | | | | LABORATORY | | | | | | SERVICES, | | | | | | CORE | | + +---------+ + + + | ALT (SGPT) | 19 | 12 - 60 U/L | [facility] | | | | | | LABORATORY | | | | | | SERVICES, | | | | | | CORE | | + +---------+ + + + | TOTAL | 6.2 (L) | 6.4 - 8.2 g/dL | [facility] | | | PROTEIN, | | | LABORATORY | | | PLASMA | | | SERVICES, | | | (LAB) | | | CORE | | + +---------+ + + + + + | Specimen | + + | Blood - Blood | + + + + + | Narrative | Performed At | + + + | New reference range effective 2012 for Total proteins | [facility] | | performed in Core Lab only. | LABORATORY | | | SERVICES, CORE | + + + + + + + + | Performing | Address | City/State/Zipcode | Phone Number | | Organization | | | | + + + + + | [facility] | [address] | [place] [address] | | | [place], [place] | [address] | | | + + + + + TROPONIN I, PLASMA (03/26/2013 7:17 PM PDT) + +-------+ + + + | Component | Value | Ref Range | Performed | Pathologist | | | | | At | Signature | + +-------+ + + + | TROPONIN I | 0.52 | <0.80 ng/mL | [facility] | | | | | | LABORATORY | | | | | | SERVICES, | | | | | | CORE | | + +-------+ + + + + + | Specimen | + + | Blood - Blood | + + + + + + + | Performing | Address | City/State/Zipcode | Phone Number | | Organization | | | | + + + + + | [facility] | [address] | [place] [address] | | | SERVICES, CORE | [address] | | | + + + + + CBC AND AUTO DIFF (03/26/2013 7:17 PM PDT) + + + + + + | Component | Value | Ref Range | Performed | Pathologist | | | | | At | Signature | + + + + + + | WHITE CELL | 13.24 (H) | 4.40 - 11.00 | [facility] | | | COUNT | | K/cu mm | LABORATORY | | | | | | SERVICES, | | | | | | CORE | | + + + + + + | RED CELL | 4.05 | 4.00 - 5.20 | [facility] | | | COUNT | | M/cu mm | LABORATORY | | | | | | SERVICES, | | | | | | CORE | | + + + + + + | HEMOGLOBIN | 12.1 | 12.0 - 16.0 | [facility] | | | | | g/dL | LABORATORY | | | | | | SERVICES, | | | | | | CORE | | + + + + + + | HEMATOCRIT | 37.8 | 36.0 - 46.0 % | [facility] | | | | | | LABORATORY | | | | | | SERVICES, | | | | | | CORE | | + + + + + + | MCV | 93.3 | 80.0 - 96.0 fL | [facility] | | | | | | LABORATORY | | | | | | SERVICES, | | | | | | CORE | | + + + + + + | MCHC | 32.0 (L) | 33.0 - 35.5 | [facility] | | | | | g/dL | LABORATORY | | | | | | SERVICES, | | | | | | CORE | | + + + + + + | RDW SD | 45.7 | 35.1 - 46.3 fL | [facility] | | | | | | LABORATORY | | | | | | SERVICES, | | | | | | CORE | | + + + + + + | PLATELET | 317 | 150 - 400 K/cu | [facility] | | | COUNT | | mm | LABORATORY | | | | | | SERVICES, | | | | | | CORE | | + + + + + + | MPV | 10.0 | 9.7 - 12.3 fL | [facility] | | | | | | LABORATORY | | | | | | SERVICES, | | | | | | CORE | | + + + + + + | NRBC% | 0.0 | 0.0 - 0.3 % | [facility] | | | | | | LABORATORY | | | | | | SERVICES, | | | | | | CORE | | + + + + + + | NRBC# | 0.00 | 0.00 - 0.02 | [facility] | | | | | K/cu mm | LABORATORY | | | | | | SERVICES, | | | | | | CORE | | + + + + + + | NEUTROPHIL | 78.7 (H) | 50.0 - 70.0 % | [facility] | | | % | | | LABORATORY | | | | | | SERVICES, | | | | | | CORE | | + + + + + + | LYMPHOCYTE | 10.5 (L) | 18.0 - 42.0 % | [facility] | | | % | | | LABORATORY | | | | | | SERVICES, | | | | | | CORE | | + + + + + + | MONOCYTE % | 6.9 | 3.5 - 9.0 % | [facility] | | | | | | LABORATORY | | | | | | SERVICES, | | | | | | CORE | | + + + + + + | EOS % | 1.1 | 1.0 - 3.0 % | [facility] | | | | | | LABORATORY | | | | | | SERVICES, | | | | | | CORE | | + + + + + + | BASO % | 0.2 | 0.0 - 2.0 % | [facility] | | | | | | LABORATORY | | | | | | SERVICES, | | | | | | CORE | | + + + + + + | IG% | 2.6 (H) | 0.0 - 0.6 % | [facility] | | | | | | LABORATORY | | | | | | SERVICES, | | | | | | CORE | | + + + + + + | NEUTROPHIL | 10.41 (H) | 1.80 - 7.70 | [facility] | | | # | | K/cu mm | LABORATORY | | | | | | SERVICES, | | | | | | CORE | | + + + + + + | LYMPHOCYTE | 1.39 | 1.00 - 4.80 | [facility] | | | # | | K/cu mm | LABORATORY | | | | | | SERVICES, | | | | | | CORE | | + + + + + + | MONOCYTE # | 0.91 (H) | 0.10 - 0.90 | [facility] | | | | | K/cu mm | LABORATORY | | | | | | SERVICES, | | | | | | CORE | | + + + + + + | EOS # | 0.15 | 0.00 - 0.50 | [facility] | | | | | K/cu mm | LABORATORY | | | | | | SERVICES, | | | | | | CORE | | + + + + + + | BASO # | 0.03 | 0.00 - 0.10 | [facility] | | | | | K/cu mm | LABORATORY | | | | | | SERVICES, | | | | | | CORE | | + + + + + + | IG# | 0.35 (H) | 0.00 - 0.03 | [facility] | | | | | K/cu mm | LABORATORY | | | | | | SERVICES, | | | | | | CORE | | + + + + + + + + | Specimen | + + | Blood - Blood | + + + + + | Narrative | Performed At | + + + | Immature Granulocyes (IG) include metamyelocytes, myelocytes | [facility] | | and promyelocytes. Bands are not included in the IG count. New | LABORATORY | | methodology and reference ranges for some CBC/Differential analytes in | SERVICES, CORE | | effect on 02/27/13. | | + + + + + + + + | Performing | Address | City/State/Zipcode | Phone Number | | Organization | | | | + + + + + | [facility] | [address] | [place] [address] | | | SERVICES, CORE | [address] | | | + + + + + BASIC METABOLIC SET (NA, K, CL, TCO2, BUN, CR, GLU, CA) (03/26/2013 7:17 PM PDT) + + + + + + | Component | Value | Ref Range | Performed | Pathologist | | | | | At | Signature | + + + + + + | GLUCOSE, | 166 (H) | 60 - 99 mg/dL | [facility] | | | PLASMA | | | LABORATORY | | | (LAB) | | | SERVICES, | | | | | | CORE | | + + + + + + | BUN, PLASMA | 12 | 6 - 20 mg/dL | [facility] | | | (LAB) | | | LABORATORY | | | | | | SERVICES, | | | | | | CORE | | + + + + + + | CREATININE | 0.58 (L) | 0.60 - 1.10 | [facility] | | | PLASMA | | mg/dL | LABORATORY | | | (LAB) | | | SERVICES, | | | | | | CORE | | + + + + + + | EGFR | >60 | >60 mL/min | [facility] | | | - | | | LABORATORY | | | [place] | | | SERVICES, | | | | | | CORE | | + + + + + + | EGFR NON | >60 | >60 mL/min | [facility] | | | -[facility] | | | LABORATORY | | | [facility] | | | SERVICES, | | | | | | CORE | | + + + + + + | SODIUM, | 145 | 136 - 145 | [facility] | | | PLASMA | | mmol/L | LABORATORY | | | (LAB) | | | SERVICES, | | | | | | CORE | | + + + + + + | POTASSIUM, | 4.0 | 3.4 - 5.0 | [facility] | | | PLASMA | | mmol/L | LABORATORY | | | (LAB) | | | SERVICES, | | | | | | CORE | | + + + + + + | CHLORIDE, | 105 | 97 - 108 mmol/L | [facility] | | | PLASMA | | | LABORATORY | | | (LAB) | | | SERVICES, | | | | | | CORE | | + + + + + + | TOTAL CO2, | 29 | 21 - 32 mmol/L | [facility] | | | PLASMA | | | LABORATORY | | | (LAB) | | | SERVICES, | | | | | | CORE | | + + + + + + | CALCIUM, | 7.8 (L) | 8.6 - 10.2 | [facility] | | | PLASMA | | mg/dL | LABORATORY | | | (LAB) | | | SERVICES, | | | | | | CORE | | + + + + + + | ANION GAP | 11 | mmol/L | [facility] | | | | | | LABORATORY | | | | | | SERVICES, | | | | | | CORE | | + + + + + + | POTASSIUM | No Hemo | | [facility] | | | CMNT | | | LABORATORY | | | | | | SERVICES, | | | | | | CORE | | + + + + + + + + | Specimen | + + | Blood - Blood | + + + + + | Narrative | Performed At | + + + | GFR is estimated using the MDRD equation recommended by the | [facility] | | National Kidney Disease Education Program. Estimated GFR | LABORATORY | | Interpretive Information: <60 mL/min/1.73 sq m | SERVICES, CORE | | Chronic Kidney Disease <15 mL/min/1.73 sq m | | | Kidney Failure Estimated GFR greater that 60 mL/min/1.73 sq m is of | | | limited clinical value. The MDRD equation is not valid in the | | | following situations: - Patients under 18 years of age - Severe | | | malnutrition or obesity - Vegetarian diet - Rapidly changing kidney | | | function | | + + + + + + + + | Performing | Address | City/State/Zipcode | Phone Number | | Organization | | | | + + + + + | [facility] | [address] | [place] [address] | | | [place], [place] | [address] | | | + + + + + X-RAY PORTABLE CHEST 1 VIEW (03/26/2013 6:10 PM PDT) + + + + + + | Component | Value | Ref Range | Performed | Pathologist | | | | | At | Signature | + + + + + + | X-RAY | STUDY:NH CHEST 1 VIEW | | | | | PORTABLE | 03/26/13 18:10:00 | | | | | CHEST 1 | COMPARISON:Yesterday | | | | | VIEW | INDICATION: Shortness of | | | | | | breath and | | | | | | desaturations, history | | | | | | of sepsis FINDINGS:Right | | | | | | IJ line terminates in | | | | | | the mid SVC. Feeding | | | | | | tube courses below | | | | | | diaphragm. Cardiac and | | | | | | mediastinal contours are | | | | | | stable. There is | | | | | | ongoing right | | | | | | perihilarconsolidation | | | | | | or atelectasis and there | | | | | | is increased | | | | | | atelectasis in the | | | | | | lungbases. Small | | | | | | effusions are unchanged. | | | | | | There is no | | | | | | pneumothorax. No | | | | | | newconsolidation. | | | | | | IMPRESSION: Increasing | | | | | | basilar atelectasis. | | | | | | Small effusions. | | | | | | Attending Radiologists: | | | | | | CHRISTO KIM MDAuthor: | | | | | | CHRISTO KIM MD I have | | | | | | personally viewed this | | | | | | procedure/exam, reviewed | | | | | | this report, and | | | | | | madechanges to it where | | | | | | appropriate. | | | | | | Final/Electronically | | | | | | signed / CHRISTO KIM | | | | | | 03/26/2013 20:16 PM | | | | + + + + + + + + | Specimen | + + | | + + + +---------+ + + | Performing | Address | City/State/Zipcode | Phone Number | | Organization | | | | + +---------+ + + | [facility] | | | | | [facility]IOLOGY | | | | + +---------+ + + CAPILLARY BLOOD GLUCOSE (NO CHG), POC (03/26/2013 5:57 PM PDT) + +---------+ + + + | Component | Value | Ref Range | Performed | Pathologist | | | | | At | Signature | + +---------+ + + + | BLOOD | 190 (H) | 60 - 99 mg/dL | [facility] - | | | GLUCOSE, | | | [facility] | | | POC | | | [facility] | | | | | | OF CARE | | | | | | TESTS | | + +---------+ + + + + + | Specimen | + + | | + + + + + + + | Performing | Address | City/State/Zipcode | Phone Number | | Organization | | | | + + + + + | [facility] | [address] | [place], [place] | | | [facility] | [address] | [address] | | | TESTS | | | | + + + + + X-RAY PORTABLE ABDOMEN 1 VIEW (03/26/2013 5:56 PM PDT) + + + + + + | Component | Value | Ref Range | Performed | Pathologist | | | | | At | Signature | + + + + + + | X-RAY | INDICATION:Ileus. | | | | | PORTABLE | Inability to take p.o. | | | | | ABDOMEN 1 | Continued nausea and | | | | | VIEW | no bowel movement. | | | | | | TECHNIQUE:Portal supine | | | | | | view of the abdomen | | | | | | obtained on two films. | | | | | | Comparison to 03/25/13 | | | | | | FINDINGS/IMPRESSION:Lung | | | | | | bases demonstrate a | | | | | | right midlung opacity | | | | | | which may represent | | | | | | loculatedeffusion. No | | | | | | definite free air on | | | | | | this supine only study. | | | | | | Pigtail catheter inthe | | | | | | left pelvis. No | | | | | | dilated loops of bowel. | | | | | | Scattered gas seen in | | | | | | the colon. Attending | | | | | | Radiologists: NOMI | | | | | | REMI MALIKuthor: NOMI | | | | | | MD KING I have | | | | | | personally viewed this | | | | | | procedure/exam, reviewed | | | | | | this report, and | | | | | | madechanges to it where | | | | | | appropriate. | | | | | | Final/Electronically | | | | | | signed / NOMI MALIK | | | | | | 03/27/2013 12:38 PM | | | | + + + + + + + + | Specimen | + + | | + + + +---------+ + + | Performing | Address | City/State/Zipcode | Phone Number | | Organization | | | | + +---------+ + + | [facility] | | | | | RADIOLOGY | | | | + +---------+ + + TROPONIN I, PLASMA (03/26/2013 12:03 PM PDT) + +-------+ + + + | Component | Value | Ref Range | Performed | Pathologist | | | | | At | Signature | + +-------+ + + + | TROPONIN I | 0.58 | <0.80 ng/mL | [facility] | | | | | | LABORATORY | | | | | | SERVICES, | | | | | | CORE | | + +-------+ + + + + + | Specimen | + + | Blood - Blood | + + + + + + + | Performing | Address | City/State/Zipcode | Phone Number | | Organization | | | | + + + + + | [facility] | [address] | [place] [address] | | | SERVICES, CORE | [address] | | | + + + + + CAPILLARY BLOOD GLUCOSE (NO CHG), POC (03/26/2013 11:50 AM PDT) + +---------+ + + + | Component | Value | Ref Range | Performed | Pathologist | | | | | At | Signature | + +---------+ + + + | BLOOD | 188 (H) | 60 - 99 mg/dL | [facility] - | | | GLUCOSE, | | | [facility] | | | POC | | | [facility] | | | | | | OF CARE | | | | | | TESTS | | + +---------+ + + + + + | Specimen | + + | | + + + + + + + | Performing | Address | City/State/Zipcode | Phone Number | | Organization | | | | + + + + + | [facility] | [address] | [place], [place] | | | [facility] C[facility] | [address] | [address] | | | TESTS | | | | + + + + + CAPILLARY BLOOD GLUCOSE (NO CHG), POC (03/26/2013 6:08 AM PDT) + +---------+ + + + | Component | Value | Ref Range | Performed | Pathologist | | | | | At | Signature | + +---------+ + + + | BLOOD | 198 (H) | 60 - 99 mg/dL | [facility] - | | | GLUCOSE, | | | [facility] | | | POC | | | [facility] | | | | | | OF CARE | | | | | | TESTS | | + +---------+ + + + + + | Specimen | + + | | + + + + + + + | Performing | Address | City/State/Zipcode | Phone Number | | Organization | | | | + + + + + | [facility] | [address] | [place], [place] | | | [facility] | [address] | [address] | | | TESTS | | | | + + + + + CBC (HEMOGRAM) ONLY (03/26/2013 4:01 AM PDT) + + + + + + | Component | Value | Ref Range | Performed | Pathologist | | | | | At | Signature | + + + + + + | WHITE CELL | 11.89 (H) | 4.40 - 11.00 | [facility] | | | COUNT | | K/cu mm | LABORATORY | | | | | | SERVICES, | | | | | | CORE | | + + + + + + | RED CELL | 3.89 (L) | 4.00 - 5.20 | [facility] | | | COUNT | | M/cu mm | LABORATORY | | | | | | SERVICES, | | | | | | CORE | | + + + + + + | HEMOGLOBIN | 11.7 (L) | 12.0 - 16.0 | [facility] | | | | | g/dL | LABORATORY | | | | | | SERVICES, | | | | | | CORE | | + + + + + + | HEMATOCRIT | 36.0 | 36.0 - 46.0 % | [facility] | | | | | | LABORATORY | | | | | | SERVICES, | | | | | | CORE | | + + + + + + | MCV | 92.5 | 80.0 - 96.0 fL | [facility] | | | | | | LABORATORY | | | | | | SERVICES, | | | | | | CORE | | + + + + + + | MCHC | 32.5 (L) | 33.0 - 35.5 | [facility] | | | | | g/dL | LABORATORY | | | | | | SERVICES, | | | | | | CORE | | + + + + + + | RDW SD | 45.0 | 35.1 - 46.3 fL | [facility] | | | | | | LABORATORY | | | | | | SERVICES, | | | | | | CORE | | + + + + + + | PLATELET | 285 | 150 - 400 K/cu | [facility] | | | COUNT | | mm | LABORATORY | | | | | | SERVICES, | | | | | | CORE | | + + + + + + | MPV | 9.4 (L) | 9.7 - 12.3 fL | [facility] | | | | | | LABORATORY | | | | | | SERVICES, | | | | | | CORE | | + + + + + + | NRBC% | 0.0 | 0.0 - 0.3 % | [facility] | | | | | | LABORATORY | | | | | | SERVICES, | | | | | | CORE | | + + + + + + | NRBC# | 0.00 | 0.00 - 0.02 | [facility] | | | | | K/cu mm | LABORATORY | | | | | | SERVICES, | | | | | | CORE | | + + + + + + + + | Specimen | + + | Blood - Blood | + + + + + | Narrative | Performed At | + + + | New methodology and reference ranges for some CBC/Differential | [facility] | | analytes in effect on 02/27/13. | LABORATORY | | | SERVICES, CORE | + + + + + + + + | Performing | Address | City/State/Zipcode | Phone Number | | Organization | | | | + + + + + | [facility] | [address] | [place] [address] | | | SERVICES, CORE | [address] | | | + + + + + PHOSPHORUS, PLASMA (03/26/2013 4:01 AM PDT) + +---------+ + + + | Component | Value | Ref Range | Performed | Pathologist | | | | | At | Signature | + +---------+ + + + | PHOSPHORUS, | 2.1 (L) | 2.4 - 4.7 mg/dL | [facility] | | | PLASMA | | | LABORATORY | | | (LAB) | | | SERVICES, | | | | | | CORE | | + +---------+ + + + + + | Specimen | + + | Blood - Blood | + + + + + + + | Performing | Address | City/State/Zipcode | Phone Number | | Organization | | | | + + + + + | [facility] | [address] | [place] [address] | | | SERVICES, [place] | [address] | | | + + + + + MAGNESIUM, PLASMA (03/26/2013 4:01 AM PDT) + +-------+ + + + | Component | Value | Ref Range | Performed | Pathologist | | | | | At | Signature | + +-------+ + + + | MAGNESIUM,P | 2.2 | 1.8 - 2.5 mg/dL | [facility] | | | LASMA | | | LABORATORY | | | | | | SERVICES, | | | | | | CORE | | + +-------+ + + + + + | Specimen | + + | Blood - Blood | + + + + + + + | Performing | Address | City/State/Zipcode | Phone Number | | Organization | | | | + + + + + | [facility] | [address] | [place] [address] | | | SERVICES, CORE | [address] | | | + + + + + BASIC METABOLIC SET (NA, K, CL, TCO2, BUN, CR, GLU, CA) (03/26/2013 4:01 AM PDT) + + + + + + | Component | Value | Ref Range | Performed | Pathologist | | | | | At | Signature | + + + + + + | GLUCOSE, | 165 (H) | 60 - 99 mg/dL | [facility] | | | PLASMA | | | LABORATORY | | | (LAB) | | | SERVICES, | | | | | | CORE | | + + + + + + | BUN, PLASMA | 8 | 6 - 20 mg/dL | [facility] | | | (LAB) | | | LABORATORY | | | | | | SERVICES, | | | | | | CORE | | + + + + + + | CREATININE | 0.50 (L) | 0.60 - 1.10 | [facility] | | | PLASMA | | mg/dL | LABORATORY | | | (LAB) | | | SERVICES, | | | | | | CORE | | + + + + + + | EGFR | >60 | >60 mL/min | [facility] | | | - | | | LABORATORY | | | [place] [facility] | | | SERVICES, | | | | | | CORE | | + + + + + + | EGFR NON | >60 | >60 mL/min | [facility] | | | -[facility] | | | LABORATORY | | | [facility] | | | SERVICES, | | | | | | CORE | | + + + + + + | SODIUM, | 141 | 136 - 145 | [facility] | | | PLASMA | | mmol/L | LABORATORY | | | (LAB) | | | SERVICES, | | | | | | CORE | | + + + + + + | POTASSIUM, | 4.1 | 3.4 - 5.0 | [facility] | | | PLASMA | | mmol/L | LABORATORY | | | (LAB) | | | SERVICES, | | | | | | CORE | | + + + + + + | CHLORIDE, | 106 | 97 - 108 mmol/L | [facility] | | | PLASMA | | | LABORATORY | | | (LAB) | | | SERVICES, | | | | | | CORE | | + + + + + + | TOTAL CO2, | 30 | 21 - 32 mmol/L | [facility] | | | PLASMA | | | LABORATORY | | | (LAB) | | | SERVICES, | | | | | | CORE | | + + + + + + | CALCIUM, | 7.5 (L) | 8.6 - 10.2 | [facility] | | | PLASMA | | mg/dL | LABORATORY | | | (LAB) | | | SERVICES, | | | | | | CORE | | + + + + + + | ANION GAP | 5 | mmol/L | [facility] | | | | | | LABORATORY | | | | | | SERVICES, | | | | | | CORE | | + + + + + + | POTASSIUM | No Hemo | | [facility] | | | CMNT | | | LABORATORY | | | | | | SERVICES, | | | | | | CORE | | + + + + + + + + | Specimen | + + | Blood - Blood | + + + + + | Narrative | Performed At | + + + | GFR is estimated using the MDRD equation recommended by the | [facility] | | National Kidney Disease Education Program. Estimated GFR | LABORATORY | | Interpretive Information: <60 mL/min/1.73 sq m | [facility], CORE | | Chronic Kidney Disease <15 mL/min/1.73 sq m | | | Kidney Failure Estimated GFR greater that 60 mL/min/1.73 sq m is of | | | limited clinical value. The MDRD equation is not valid in the | | | following situations: - Patients under 18 years of age - Severe | | | malnutrition or obesity - Vegetarian diet - Rapidly changing kidney | | | function | | + + + + + + + + | Performing | Address | City/State/Zipcode | Phone Number | | Organization | | | | + + + + + | [facility] | [address] | [place] [address] | | | [place] | [address] | | | + + + + + TROPONIN I, PLASMA (03/26/2013 4:01 AM PDT) + + + + + + | Component | Value | Ref Range | Performed | Pathologist | | | | | At | Signature | + + + + + + | TROPONIN I | 0.82 (H) | <0.80 ng/mL | [facility] | | | | | | LABORATORY | | | | | | SERVICES, | | | | | | CORE | | + + + + + + + + | Specimen | + + | Blood - Blood | + + + + + + + | Performing | Address | City/State/Zipcode | Phone Number | | Organization | | | | + + + + + | [facility] | [address] | [place] [address] | | | SERVICES, CORE | [address] | | | + + + + + CAPILLARY BLOOD GLUCOSE (NO CHG), POC (03/25/2013 10:39 PM PDT) + +---------+ + + + | Component | Value | Ref Range | Performed | Pathologist | | | | | At | Signature | + +---------+ + + + | BLOOD | 235 (H) | 60 - 99 mg/dL | [facility] - | | | GLUCOSE, | | | [facility] | | | POC | | | [facility] | | | | | | OF CARE | | | | | | TESTS | | + +---------+ + + + + + | Specimen | + + | | + + + + + + + | Performing | Address | City/State/Zipcode | Phone Number | | Organization | | | | + + + + + | [facility] | [address] | [place], [place] | | | [facility] CARE | [address] | [address] | | | TESTS | | | | + + + + + 12 LEAD ECG (03/25/2013 8:57 PM PDT) + + + + + + | Component | Value | Ref Range | Performed | Pathologist | | | | | At | Signature | + + + + + + | VENTRICULAR | 102 | BPM | [facility] | | | RATE | | | OF | | | | | | CARDIOLOGY | | + + + + + + | ATRIAL RATE | 102 | BPM | [facility] | | | | | | OF | | | | | | CARDIOLOGY | | + + + + + + | P-R | 138 | ms | [facility] | | | INTERVAL | | | OF | | | | | | CARDIOLOGY | | + + + + + + | QRS | 72 | ms | [facility] | | | DURATION | | | OF | | | | | | CARDIOLOGY | | + + + + + + | QT | 318 | ms | [facility] | | | | | | OF | | | | | | CARDIOLOGY | | + + + + + + | QTC | 414 | ms | [facility] | | | | | | OF | | | | | | CARDIOLOGY | | + + + + + + | P AXIS | 48 | degrees | [facility] | | | | | | OF | | | | | | CARDIOLOGY | | + + + + + + | R AXIS | 30 | degrees | [facility] | | | | | | OF | | | | | | CARDIOLOGY | | + + + + + + | T AXIS | 91 | degrees | [facility] | | | | | | OF | | | | | | CARDIOLOGY | | + + + + + + | EKG | Sinus tachycardiaLow | | [facility] | | | DIAGNOSIS | voltage QRSPossible | | OF | | | | Septal infarct , age | | CARDIOLOGY | | | | undeterminedAbnormal | | | | | | ECG"I have personally | | | | | | interpreted this report, | | | | | | either alone or with a | | | | | | trainee."Confirmed by | | | | | | SCOTT CHADWICK ([id number]) on | | | | | | 03/27/2013 8:43:45 PM | | | | + + + + + + + + | Specimen | + + | | + + + + + | Narrative | Performed At | + + + | Please click | [facility] OF | | on view image for the detailed interpretation from [facility] results. | CARDIOLOGY | + + + + + | Procedure Note | + + | Interface, Cardiology Results - 03/27/2013 8:43 PM PDT Please click on view image | | for the detailed interpretation from [employer] results. | + + + + + + + | Performing | Address | City/State/Zipcode | Phone Number | | Organization | | | | + + + + + | [facility] | [address] | [place], [place] | | | CARDIOLOGY | [address] | [address] | | + + + + + X-RAY PORTABLE CHEST 1 VIEW (03/25/2013 8:43 PM PDT) + + + + + + | Component | Value | Ref Range | Performed | Pathologist | | | | | At | Signature | + + + + + + | X-RAY | STUDY: [place] CHEST 1 VIEW | | | | | PORTABLE | 03/25/13 20:43:00 | | | | | CHEST 1 | COMPARISON: Chest | | | | | VIEW | radiograph from | | | | | | 03/23/2013. HISTORY: | | | | | | Patient with sepsis; | | | | | | increased wheezing and | | | | | | shortness of | | | | | | breath;evaluate for | | | | | | pneumonia. FINDINGS: | | | | | | Support equipment is | | | | | | unchanged. The lung | | | | | | volumes remain low with | | | | | | increasedatelectasis in | | | | | | the lower lungs | | | | | | bilaterally. There is | | | | | | also right | | | | | | perihilaratelectasis. | | | | | | There is no | | | | | | pneumothorax. Small | | | | | | bilateral pleural | | | | | | effusions arepresent. | | | | | | Cardiac silhouette is | | | | | | stable. IMPRESSION: | | | | | | Worsened atelectasis in | | | | | | the lobes bilaterally | | | | | | with unchanged small | | | | | | pleuraleffusions. | | | | | | Attending Radiologists: | | | | | | MAL THAO, MDAuthor: | | | | | | SHYANNE TANG MD I | | | | | | have personally viewed | | | | | | this procedure/exam, | | | | | | reviewed this report, | | | | | | and madechanges to it | | | | | | where appropriate. | | | | | | Final/Electronically | | | | | | signed / MAL | | | | | | KEESHA 03/26/2013 9:49 AM | | | | | | | | | | + + + + + + + + | Specimen | + + | | + + + +---------+ + + | Performing | Address | City/State/Zipcode | Phone Number | | Organization | | | | + +---------+ + + | [facility] | | | | | RADIOLOGY | | | | + +---------+ + + PHOSPHORUS, PLASMA (03/25/2013 8:35 PM PDT) + +-------+ + + + | Component | Value | Ref Range | Performed | Pathologist | | | | | At | Signature | + +-------+ + + + | PHOSPHORUS, | 3.0 | 2.4 - 4.7 mg/dL | [facility] | | | [facility] | | | LABORATORY | | | (LAB) | | | SERVICES, | | | | | | CORE | | + +-------+ + + + + + | Specimen | + + | Blood - Blood | + + + + + + + | Performing | Address | City/State/Zipcode | Phone Number | | Organization | | | | + + + + + | [facility] | [address] | [place] [address] | | | SERVICES, CORE | [address] | | | + + + + + MAGNESIUM, PLASMA (03/25/2013 8:35 PM PDT) + +-------+ + + + | Component | Value | Ref Range | Performed | Pathologist | | | | | At | Signature | + +-------+ + + + | MAGNESIUM,P | 2.4 | 1.8 - 2.5 mg/dL | [facility] | | | LASMA | | | LABORATORY | | | | | | SERVICES, | | | | | | CORE | | + +-------+ + + + + + | Specimen | + + | Blood - Blood | + + + + + + + | Performing | Address | City/State/Zipcode | Phone Number | | Organization | | | | + + + + + | [facility] | [address] | [place] [address] | | | SERVICES, CORE | [address] | | | + + + + + CBC AND AUTO DIFF (03/25/2013 8:35 PM PDT) + + + + + + | Component | Value | Ref Range | Performed | Pathologist | | | | | At | Signature | + + + + + + | WHITE CELL | 13.56 (H) | 4.40 - 11.00 | [facility] | | | COUNT | | K/cu mm | LABORATORY | | | | | | SERVICES, | | | | | | CORE | | + + + + + + | RED CELL | 4.14 | 4.00 - 5.20 | [facility] | | | COUNT | | M/cu mm | LABORATORY | | | | | | SERVICES, | | | | | | CORE | | + + + + + + | HEMOGLOBIN | 11.8 (L) | 12.0 - 16.0 | [facility] | | | | | g/dL | LABORATORY | | | | | | SERVICES, | | | | | | CORE | | + + + + + + | HEMATOCRIT | 38.0 | 36.0 - 46.0 % | [facility] | | | | | | LABORATORY | | | | | | SERVICES, | | | | | | CORE | | + + + + + + | MCV | 91.8 | 80.0 - 96.0 fL | [facility] | | | | | | LABORATORY | | | | | | SERVICES, | | | | | | CORE | | + + + + + + | MCHC | 31.1 (L) | 33.0 - 35.5 | [facility] | | | | | g/dL | LABORATORY | | | | | | SERVICES, | | | | | | CORE | | + + + + + + | RDW SD | 44.9 | 35.1 - 46.3 fL | [facility] | | | | | | LABORATORY | | | | | | SERVICES, | | | | | | CORE | | + + + + + + | PLATELET | 316 | 150 - 400 K/cu | [facility] | | | COUNT | | mm | LABORATORY | | | | | | SERVICES, | | | | | | CORE | | + + + + + + | MPV | 9.5 (L) | 9.7 - 12.3 fL | [facility] | | | | | | LABORATORY | | | | | | SERVICES, | | | | | | CORE | | + + + + + + | NRBC% | 0.0 | 0.0 - 0.3 % | [facility] | | | | | | LABORATORY | | | | | | SERVICES, | | | | | | CORE | | + + + + + + | NRBC# | 0.00 | 0.00 - 0.02 | [facility] | | | | | K/cu mm | LABORATORY | | | | | | SERVICES, | | | | | | CORE | | + + + + + + | NEUTROPHIL | 91.5 (H) | 50.0 - 70.0 % | [facility] | | | % | | | LABORATORY | | | | | | SERVICES, | | | | | | CORE | | + + + + + + | LYMPHOCYTE | 4.0 (L) | 18.0 - 42.0 % | [facility] | | | % | | | LABORATORY | | | | | | SERVICES, | | | | | | CORE | | + + + + + + | MONOCYTE % | 2.9 (L) | 3.5 - 9.0 % | [facility] | | | | | | LABORATORY | | | | | | SERVICES, | | | | | | CORE | | + + + + + + | EOS % | 0.1 (L) | 1.0 - 3.0 % | [facility] | | | | | | LABORATORY | | | | | | SERVICES, | | | | | | CORE | | + + + + + + | BASO % | 0.2 | 0.0 - 2.0 % | [facility] | | | | | | LABORATORY | | | | | | SERVICES, | | | | | | CORE | | + + + + + + | IG% | 1.3 (H) | 0.0 - 0.6 % | [facility] | | | | | | LABORATORY | | | | | | SERVICES, | | | | | | CORE | | + + + + + + | NEUTROPHIL | 12.41 (H) | 1.80 - 7.70 | [facility] | | | # | | K/cu mm | LABORATORY | | | | | | SERVICES, | | | | | | CORE | | + + + + + + | LYMPHOCYTE | 0.54 (L) | 1.00 - 4.80 | [facility] | | | # | | K/cu mm | LABORATORY | | | | | | SERVICES, | | | | | | CORE | | + + + + + + | MONOCYTE # | 0.39 | 0.10 - 0.90 | [facility] | | | | | K/cu mm | LABORATORY | | | | | | SERVICES, | | | | | | CORE | | + + + + + + | EOS # | 0.01 | 0.00 - 0.50 | [facility] | | | | | K/cu mm | LABORATORY | | | | | | SERVICES, | | | | | | CORE | | + + + + + + | BASO # | 0.03 | 0.00 - 0.10 | [facility] | | | | | K/cu mm | LABORATORY | | | | | | SERVICES, | | | | | | CORE | | + + + + + + | IG# | 0.18 (H) | 0.00 - 0.03 | [facility] | | | | | K/cu mm | LABORATORY | | | | | | SERVICES, | | | | | | CORE | | + + + + + + + + | Specimen | + + | Blood - Blood | + + + + + | Narrative | Performed At | + + + | Immature Granulocyes (IG) include metamyelocytes, myelocytes | [facility] | | and promyelocytes. Bands are not included in the IG count. New | LABORATORY | | methodology and reference ranges for some CBC/Differential analytes in | SERVICES, CORE | | effect on 02/27/13. | | + + + + + + + + | Performing | Address | City/State/Zipcode | Phone Number | | Organization | | | | + + + + + | [facility] | [address] | [place] [address] | | | SERVICES, CORE | [address] | | | + + + + + BASIC METABOLIC SET (NA, K, CL, TCO2, BUN, CR, GLU, CA) (03/25/2013 8:35 PM PDT) + + + + + + | Component | Value | Ref Range | Performed | Pathologist | | | | | At | Signature | + + + + + + | GLUCOSE, | 206 (H) | 60 - 99 mg/dL | [facility] | | | PLASMA | | | LABORATORY | | | (LAB) | | | SERVICES, | | | | | | CORE | | + + + + + + | BUN, PLASMA | 7 | 6 - 20 mg/dL | [facility] | | | (LAB) | | | LABORATORY | | | | | | SERVICES, | | | | | | CORE | | + + + + + + | CREATININE | 0.43 (L) | 0.60 - 1.10 | [facility] | | | PLASMA | | mg/dL | LABORATORY | | | (LAB) | | | SERVICES, | | | | | | CORE | | + + + + + + | EGFR | >60 | >60 mL/min | [facility] | | | - | | | LABORATORY | | | [place] | | | SERVICES, | | | | | | CORE | | + + + + + + | EGFR NON | >60 | >60 mL/min | [facility] | | | -BLANKA | | | LABORATORY | | | [facility] | | | SERVICES, | | | | | | CORE | | + + + + + + | SODIUM, | 141 | 136 - 145 | [facility] | | | PLASMA | | mmol/L | LABORATORY | | | (LAB) | | | SERVICES, | | | | | | CORE | | + + + + + + | POTASSIUM, | 4.4 | 3.4 - 5.0 | [facility] | | | PLASMA | | mmol/L | LABORATORY | | | (LAB) | | | SERVICES, | | | | | | CORE | | + + + + + + | CHLORIDE, | 106 | 97 - 108 mmol/L | [facility] | | | PLASMA | | | LABORATORY | | | (LAB) | | | SERVICES, | | | | | | CORE | | + + + + + + | TOTAL CO2, | 26 | 21 - 32 mmol/L | [facility] | | | PLASMA | | | LABORATORY | | | (LAB) | | | SERVICES, | | | | | | CORE | | + + + + + + | CALCIUM, | 7.5 (L) | 8.6 - 10.2 | [facility] | | | PLASMA | | mg/dL | LABORATORY | | | (LAB) | | | SERVICES, | | | | | | CORE | | + + + + + + | ANION GAP | 9 | mmol/L | [facility] | | | | | | LABORATORY | | | | | | SERVICES, | | | | | | CORE | | + + + + + + | POTASSIUM | No Hemo | | [facility] | | | CMNT | | | LABORATORY | | | | | | SERVICES, | | | | | | CORE | | + + + + + + + + | Specimen | + + | Blood - Blood | + + + + + | Narrative | Performed At | + + + | GFR is estimated using the MDRD equation recommended by the | [facility] | | National Kidney Disease Education Program. Estimated GFR | LABORATORY | | Interpretive Information: <60 mL/min/1.73 sq m | [facility] | | Chronic Kidney Disease <15 mL/min/1.73 sq m | | | Kidney Failure Estimated GFR greater that 60 mL/min/1.73 sq m is of | | | limited clinical value. The MDRD equation is not valid in the | | | following situations: - Patients under 18 years of age - Severe | | | malnutrition or obesity - Vegetarian diet - Rapidly changing kidney | | | function | | + + + + + + + + | Performing | Address | City/State/Zipcode | Phone Number | | Organization | | | | + + + + + | [facility] | [address] | [place] [address] | | | SERVICES, CORE | [address] | | | + + + + + TROPONIN I, PLASMA (03/25/2013 8:35 PM PDT) + +-------+ + + + | Component | Value | Ref Range | Performed | Pathologist | | | | | At | Signature | + +-------+ + + + | TROPONIN I | 0.69 | <0.80 ng/mL | [facility] | | | | | | LABORATORY | | | | | | SERVICES, | | | | | | CORE | | + +-------+ + + + + + | Specimen | + + | Blood - Blood | + + + + + + + | Performing | Address | City/State/Zipcode | Phone Number | | Organization | | | | + + + + + | [facility] | [address] | [place] [address] | | | SERVICES, CORE | [address] | | | + + + + + CAPILLARY BLOOD GLUCOSE (NO CHG), POC (03/25/2013 8:26 PM PDT) + +---------+ + + + | Component | Value | Ref Range | Performed | Pathologist | | | | | At | Signature | + +---------+ + + + | BLOOD | 242 (H) | 60 - 99 mg/dL | [facility] - | | | GLUCOSE, | | | [facility] | | | POC | | | [facility] | | | | | | OF CARE | | | | | | TESTS | | + +---------+ + + + + + | Specimen | + + | | + + + + + + + | Performing | Address | City/State/Zipcode | Phone Number | | Organization | | | | + + + + + | [facility] | [address] | [place], [place] | | | [facility] | [address] | [address] | | | TESTS | | | | + + + + + CULTURE, URINE BACTI (03/25/2013 8:25 PM PDT) + + + + + + | Component | Value | Ref Range | Performed | Pathologist | | | | | At | Signature | + + + + + + | CULTURE | C UrineSource: Urine | | [facility] - | | | RESULT | | | [facility] - | | | | Final CULTURE | | [place] | | | | RESULT:No growth (<1000 | | | | | | col/ml) after 24 hours | | | | + + + + + + + + | Specimen | + + | Urine - Urine | + + + + + + + | Performing | Address | City/State/Zipcode | Phone Number | | Organization | | | | + + + + + | [facility] | [address] | [place] [address] | | | [place] | | | | + + + + + ERIN MCDONALD ONLY (03/25/2013 8:25 PM PDT) + + + + + + | Component | Value | Ref Range | Performed | Pathologist | | | | | At | Signature | + + + + + + | COLOR(UR) | Yellow | | [facility] | | | | | | LABORATORY | | | | | | SERVICES, | | | | | | CORE | | + + + + + + | APPEARANCE | Clear | | [facility] | | | | | | LABORATORY | | | | | | SERVICES, | | | | | | CORE | | + + + + + + | GLUCOSE(UR) | 50.0 | Negative, 50.0 | [facility] | | | | | mg/dL | LABORATORY | | | | | | SERVICES, | | | | | | CORE | | + + + + + + | PROTEIN(LAB | Negative | Negative, 30.0 | [facility] | | | ) | | mg/dL | LABORATORY | | | | | | SERVICES, | | | | | | CORE | | + + + + + + | BILIRUBIN | Negative | Negative | [facility] | | | | | | LABORATORY | | | | | | SERVICES, | | | | | | CORE | | + + + + + + | UROBILINOGE | <2.0 | <2.0 mg/dL | [facility] | | | N | | | LABORATORY | | | | | | SERVICES, | | | | | | CORE | | + + + + + + | PH(UR) | 5.0 | 5.0 - 8.0 | [facility] | | | | | | LABORATORY | | | | | | SERVICES, | | | | | | CORE | | + + + + + + | BLOOD | Small (A) | Negative | [facility] | | | | | | LABORATORY | | | | | | SERVICES, | | | | | | CORE | | + + + + + + | KETONES | Negative | Negative mg/dL | [facility] | | | | | | LABORATORY | | | | | | SERVICES, | | | | | | CORE | | + + + + + + | NITRITES | Negative | Negative | [facility] | | | | | | LABORATORY | | | | | | SERVICES, | | | | | | CORE | | + + + + + + | LEUKOCYTE | Trace (A) | Negative | [facility] | | | ESTERASE | | | LABORATORY | | | | | | SERVICES, | | | | | | CORE | | + + + + + + | SPECIFIC | 1.020 | 1.005 - 1.030 | [facility] | | | GRAVITY | | | LABORATORY | | | | | | SERVICES, | | | | | | CORE | | + + + + + + + + | Specimen | + + | Urine - Urine | + + + + + + + | Performing | Address | City/State/Zipcode | Phone Number | | Organization | | | | + + + + + | [facility] | [address] | [place] [address] | | | SERVICES, CORE | [address] | | | + + + + + URINE, MICROSCOPIC EXAM (03/25/2013 8:25 PM PDT) + +---------+ + + + | Component | Value | Ref Range | Performed | Pathologist | | | | | At | Signature | + +---------+ + + + | RED CELLS | 11 (H) | 0 - 3 /hpf | [facility] | | | | | | LABORATORY | | | | | | SERVICES, | | | | | | CORE | | + +---------+ + + + | WHITE CELLS | 2 | 0 - 5 /hpf | [facility] | | | | | | LABORATORY | | | | | | SERVICES, | | | | | | CORE | | + +---------+ + + + | BACTERIA | None | None /hpf | [facility] | | | | | | LABORATORY | | | | | | SERVICES, | | | | | | CORE | | + +---------+ + + + | YEAST (LAB) | None | None /hpf | [facility] | | | | | | LABORATORY | | | | | | SERVICES, | | | | | | CORE | | + +---------+ + + + | SQUAMOUS | None | None /hpf | [facility] | | | EPITHELIAL | | | LABORATORY | | | | | | SERVICES, | | | | | | CORE | | + +---------+ + + + | MUCOUS | None | None /hpf | [facility] | | | | | | LABORATORY | | | | | | SERVICES, | | | | | | CORE | | + +---------+ + + + | TRICHOMONAS | None | None /hpf | [facility] | | | | | | LABORATORY | | | | | | SERVICES, | | | | | | CORE | | + +---------+ + + + | NON-TEDDY | Kiki (A) | None /hpf | [facility] | | | S EPITH | | | LABORATORY | | | | | | SERVICES, | | | | | | CORE | | + +---------+ + + + | HYALINE | 1 | 0 - 2 /lpf | [facility] | | | CASTS | | | LABORATORY | | | | | | SERVICES, | | | | | | CORE | | + +---------+ + + + | GRANULAR | 0 | 0 - 2 /lpf | [facility] | | | CASTS | | | LABORATORY | | | | | | SERVICES, | | | | | | CORE | | + +---------+ + + + | CELLULAR | 0 | <=0 /lpf | [facility] | | | CASTS | | | LABORATORY | | | | | | SERVICES, | | | | | | CORE | | + +---------+ + + + | TRIPLE P04 | None | None /hpf | [facility] | | | CRYSTALS | | | LABORATORY | | | | | | SERVICES, | | | | | | CORE | | + +---------+ + + + | CALCIUM | None | None /hpf | [facility] | | | OXALATE | | | LABORATORY | | | ELIE | | | SERVICES, | | | | | | CORE | | + +---------+ + + + | URIC ACID | None | None /hpf | [facility] | | | CRYSTALS | | | LABORATORY | | | | | | SERVICES, | | | | | | CORE | | + +---------+ + + + | AMORPHOUS | None | None /hpf | [facility] | | | CRYSTALS | | | LABORATORY | | | | | | SERVICES, | | | | | | CORE | | + +---------+ + + + + + | Specimen | + + | Urine - Urine | + + + + + + + | Performing | Address | City/State/Zipcode | Phone Number | | Organization | | | | + + + + + | [facility] | [address] | [place] [address] | | | SERVICES, CORE | [address] | | | + + + + + URINE SCREEN FOR CULTURE (03/25/2013 8:25 PM PDT) + + + + + + | Component | Value | Ref Range | Performed | Pathologist | | | | | At | Signature | + + + + + + | URINE | Positive (A) | Negative | [facility] | | | SCREEN FOR | | | LABORATORY | | | CULTURE | | | SERVICES, | | | | | | CORE | | + + + + + + + + | Specimen | + + | Urine - Urine | + + + + + | Narrative | Performed At | + + + | Culture Screen Positive, specimen sent for culture. | [facility] | | | LABORATORY | | | [facility] | + + + + + + + + | Performing | Address | City/State/Zipcode | Phone Number | | Organization | | | | + + + + + | [facility] | [address] | [place] [address] | | | SERVICES, [place] | [address] | | | + + + + + CAPILLARY BLOOD GLUCOSE (NO CHG), POC (03/25/2013 5:23 PM PDT) + +---------+ + + + | Component | Value | Ref Range | Performed | Pathologist | | | | | At | Signature | + +---------+ + + + | BLOOD | 263 (H) | 60 - 99 mg/dL | [facility] - | | | GLUCOSE, | | | [facility] | | | POC | | | [facility] | | | | | | OF CARE | | | | | | TESTS | | + +---------+ + + + + + | Specimen | + + | | + + + + + + + | Performing | Address | City/State/Zipcode | Phone Number | | Organization | | | | + + + + + | [facility] | [address] | [place], [place] | | | [facility] OF CARE | [facility] | [address] | | | TESTS | | | | + + + + + X-RAY ABD LTD FEEDING TUBE EVAL (03/25/2013 4:44 PM PDT) + + + + + + | Component | Value | Ref Range | Performed | Pathologist | | | | | At | Signature | + + + + + + | ABD LTD | Indication: Nausea, | | | | | FEEDING | vomiting, check for | | | | | TUBE EVAL | ileus and NG tube | | | | | | placement. Comparison: | | | | | | None. Portable, upright | | | | | | abdomen: A nasogastric | | | | | | tube terminates in the | | | | | | gastric bodywith the | | | | | | side hole in the | | | | | | proximal gastric body. | | | | | | A paucity of bowel gas | | | | | | limitsevaluation. | | | | | | Right upper quadrant | | | | | | cholecystectomy clips | | | | | | are in place. | | | | | | Basilaratelectasis is | | | | | | noted. No acute | | | | | | osseous abnormalities. 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 | | | | | | Impression: Paucity | | | | | | small bowel gas limits | | | | | | evaluation. | | | | | | Nasogastric tube | | | | | | inexpected position. | | | | | | Attending Radiologists: | | | | | | OMAR YEPEZ MDAuthor: | | | | | | OMAR YEPEZ MD I have | | | | | | personally viewed this | | | | | | procedure/exam, reviewed | | | | | | this report, and | | | | | | madechanges to it where | | | | | | appropriate. | | | | | | Final/Electronically | | | | | | signed / OMAR YEPEZ | | | | | | 03/26/2013 10:12 AM | | | | + + + + + + + + | Specimen | + + | | + + + +---------+ + + | Performing | Address | City/State/Zipcode | Phone Number | | Organization | | | | + +---------+ + + | [facility] | | | | | RADIOLOGY | | | | + +---------+ + + CAPILLARY BLOOD GLUCOSE (NO CHG), POC (03/25/2013 12:37 PM PDT) + +---------+ + + + | Component | Value | Ref Range | Performed | Pathologist | | | | | At | Signature | + +---------+ + + + | BLOOD | 227 (H) | 60 - 99 mg/dL | [facility] - | | | GLUCOSE, | | | [facility] | | | POC | | | [facility] | | | | | | OF CARE | | | | | | TESTS | | + +---------+ + + + + + | Specimen | + + | | + + + + + + + | Performing | Address | City/State/Zipcode | Phone Number | | Organization | | | | + + + + + | [facility] | [address] | [place], [place] | | | [facility] [place] | [address] | [address] | | | TESTS | | | | + + + + + 12 LEAD ECG (03/25/2013 10:28 AM PDT) + + + + + + | Component | Value | Ref Range | Performed | Pathologist | | | | | At | Signature | + + + + + + | VENTRICULAR | 95 | BPM | [facility] | | | RATE | | | OF | | | | | | CARDIOLOGY | | + + + + + + | ATRIAL RATE | 95 | BPM | [facility] | | | | | | OF | | | | | | CARDIOLOGY | | + + + + + + | P-R | 143 | ms | [facility] | | | INTERVAL | | | OF | | | | | | CARDIOLOGY | | + + + + + + | QRS | 77 | ms | [facility] | | | DURATION | | | OF | | | | | | CARDIOLOGY | | + + + + + + | QT | 358 | ms | [facility] | | | | | | OF | | | | | | CARDIOLOGY | | + + + + + + | QTC | 450 | ms | [facility] | | | | | | OF | | | | | | CARDIOLOGY | | + + + + + + | P AXIS | 67 | degrees | [facility] | | | | | | OF | | | | | | CARDIOLOGY | | + + + + + + | R AXIS | 18 | degrees | [facility] | | | | | | OF | | | | | | CARDIOLOGY | | + + + + + + | T AXIS | 25 | degrees | [facility] | | | | | | OF | | | | | | CARDIOLOGY | | + + + + + + | EKG | Normal sinus rhythmLow | | [facility] | | | DIAGNOSIS | voltage QRSAbnormal | | OF | | | | ECG"I have personally | | CARDIOLOGY | | | | interpreted this report, | | | | | | either alone or with a | | | | | | trainee."Confirmed by | | | | | | IVÁN DILLON ([id number]) | | | | | | on 03/25/2013 10:27:32 PM | | | | + + + + + + + + | Specimen | + + | | + + + + + | Narrative | Performed At | + + + | Please click | [facility] | | on view image for the detailed interpretation from [employer] results. | CARDIOLOGY | + + + + + | Procedure Note | + + | Interface, Cardiology Results - 03/25/2013 10:27 PM PDT Please click on view image | | for the detailed interpretation from [employer] results. | + + + + + + + | Performing | Address | City/State/Zipcode | Phone Number | | Organization | | | | + + + + + | [facility] | [address] | [place], [place] | | | CARDIOLOGY | [address] | [address] | | + + + + + CAPILLARY BLOOD GLUCOSE (NO CHG), POC (03/25/2013 6:54 AM PDT) + +---------+ + + + | Component | Value | Ref Range | Performed | Pathologist | | | | | At | Signature | + +---------+ + + + | BLOOD | 165 (H) | 60 - 99 mg/dL | [facility] - | | | GLUCOSE, | | | [facility] | | | POC | | | [facility] | | | | | | OF CARE | | | | | | TESTS | | + +---------+ + + + + + | Specimen | + + | | + + + + + + + | Performing | Address | City/State/Zipcode | Phone Number | | Organization | | | | + + + + + | [facility] | [address] | [place], [place] | | | [facility] CARE | [address] | [address] | | | TESTS | | | | + + + + + PHOSPHORUS, PLASMA (03/25/2013 3:09 AM PDT) + +---------+ + + + | Component | Value | Ref Range | Performed | Pathologist | | | | | At | Signature | + +---------+ + + + | PHOSPHORUS, | 1.4 (L) | 2.4 - 4.7 mg/dL | [facility] | | | PLASMA | | | LABORATORY | | | (LAB) | | | SERVICES, | | | | | | CORE | | + +---------+ + + + + + | Specimen | + + | Blood - Blood | + + + + + + + | Performing | Address | City/State/Zipcode | Phone Number | | Organization | | | | + + + + + | [facility] | [address] | [place] [address] | | | [facility] | [address] | | | + + + + + CBC (HEMOGRAM) ONLY (03/25/2013 3:09 AM PDT) + + + + + + | Component | Value | Ref Range | Performed | Pathologist | | | | | At | Signature | + + + + + + | WHITE CELL | 11.87 (H) | 4.40 - 11.00 | [facility] | | | COUNT | | K/cu mm | LABORATORY | | | | | | SERVICES, | | | | | | CORE | | + + + + + + | RED CELL | 3.37 (L) | 4.00 - 5.20 | [facility] | | | COUNT | | M/cu mm | LABORATORY | | | | | | SERVICES, | | | | | | CORE | | + + + + + + | HEMOGLOBIN | 10.1 (L) | 12.0 - 16.0 | [facility] | | | | | g/dL | LABORATORY | | | | | | SERVICES, | | | | | | CORE | | + + + + + + | HEMATOCRIT | 31.5 (L) | 36.0 - 46.0 % | [facility] | | | | | | LABORATORY | | | | | | SERVICES, | | | | | | CORE | | + + + + + + | MCV | 93.5 | 80.0 - 96.0 fL | [facility] | | | | | | LABORATORY | | | | | | SERVICES, | | | | | | CORE | | + + + + + + | MCHC | 32.1 (L) | 33.0 - 35.5 | [facility] | | | | | g/dL | LABORATORY | | | | | | SERVICES, | | | | | | CORE | | + + + + + + | RDW SD | 45.5 | 35.1 - 46.3 fL | [facility] | | | | | | LABORATORY | | | | | | SERVICES, | | | | | | CORE | | + + + + + + | PLATELET | 247 | 150 - 400 K/cu | [facility] | | | COUNT | | mm | LABORATORY | | | | | | SERVICES, | | | | | | CORE | | + + + + + + | MPV | 9.4 (L) | 9.7 - 12.3 fL | [facility] | | | | | | LABORATORY | | | | | | SERVICES, | | | | | | CORE | | + + + + + + | NRBC% | 0.0 | 0.0 - 0.3 % | [facility] | | | | | | LABORATORY | | | | | | SERVICES, | | | | | | CORE | | + + + + + + | NRBC# | 0.00 | 0.00 - 0.02 | [facility] | | | | | K/cu mm | LABORATORY | | | | | | SERVICES, | | | | | | CORE | | + + + + + + + + | Specimen | + + | Blood - Blood | + + + + + | Narrative | Performed At | + + + | New methodology and reference ranges for some CBC/Differential | [facility] | | analytes in effect on 02/27/13. | LABORATORY | | | SERVICES, CORE | + + + + + + + + | Performing | Address | City/State/Zipcode | Phone Number | | Organization | | | | + + + + + | [facility] | [phone] | [place] [address] | | | SERVICES, CORE | [address] | | | + + + + + MAGNESIUM, PLASMA (03/25/2013 3:09 AM PDT) + +---------+ + + + | Component | Value | Ref Range | Performed | Pathologist | | | | | At | Signature | + +---------+ + + + | MAGNESIUM,P | 1.6 (L) | 1.8 - 2.5 mg/dL | [facility] | | | LASMA | | | LABORATORY | | | | | | SERVICES, | | | | | | CORE | | + +---------+ + + + + + | Specimen | + + | Blood - Blood | + + + + + + + | Performing | Address | City/State/Zipcode | Phone Number | | Organization | | | | + + + + + | [facility] | [address] | [place] [address] | | | SERVICES, CORE | [address] | | | + + + + + BASIC METABOLIC SET (NA, K, CL, TCO2, BUN, CR, GLU, CA) (03/25/2013 3:09 AM PDT) + + + + + + | Component | Value | Ref Range | Performed | Pathologist | | | | | At | Signature | + + + + + + | GLUCOSE, | 136 (H) | 60 - 99 mg/dL | [facility] | | | PLASMA | | | LABORATORY | | | (LAB) | | | SERVICES, | | | | | | CORE | | + + + + + + | BUN, PLASMA | 5 (L) | 6 - 20 mg/dL | [facility] | | | (LAB) | | | LABORATORY | | | | | | SERVICES, | | | | | | CORE | | + + + + + + | CREATININE | 0.50 (L) | 0.60 - 1.10 | [facility] | | | PLASMA | | mg/dL | LABORATORY | | | (LAB) | | | SERVICES, | | | | | | CORE | | + + + + + + | EGFR | >60 | >60 mL/min | [facility] | | | - | | | LABORATORY | | | [place] [facility] | | | SERVICES, | | | | | | CORE | | + + + + + + | EGFR NON | >60 | >60 mL/min | [facility] | | | -[facility] | | | LABORATORY | | | [facility] | | | SERVICES, | | | | | | CORE | | + + + + + + | SODIUM, | 142 | 136 - 145 | [facility] | | | PLASMA | | mmol/L | LABORATORY | | | (LAB) | | | SERVICES, | | | | | | CORE | | + + + + + + | POTASSIUM, | 3.7 | 3.4 - 5.0 | [facility] | | | PLASMA | | mmol/L | LABORATORY | | | (LAB) | | | SERVICES, | | | | | | CORE | | + + + + + + | CHLORIDE, | 108 | 97 - 108 mmol/L | [facility] | | | PLASMA | | | LABORATORY | | | (LAB) | | | SERVICES, | | | | | | CORE | | + + + + + + | TOTAL CO2, | 26 | 21 - 32 mmol/L | [facility] | | | PLASMA | | | LABORATORY | | | (LAB) | | | SERVICES, | | | | | | CORE | | + + + + + + | CALCIUM, | 7.3 (L) | 8.6 - 10.2 | [facility] | | | PLASMA | | mg/dL | LABORATORY | | | (LAB) | | | SERVICES, | | | | | | CORE | | + + + + + + | ANION GAP | 8 | mmol/L | [facility] | | | | | | LABORATORY | | | | | | SERVICES, | | | | | | CORE | | + + + + + + | POTASSIUM | No Hemo | | [facility] | | | CMNT | | | LABORATORY | | | | | | SERVICES, | | | | | | CORE | | + + + + + + + + | Specimen | + + | Blood - Blood | + + + + + | Narrative | Performed At | + + + | GFR is estimated using the MDRD equation recommended by the | [facility] | | National Kidney Disease Education Program. Estimated GFR | LABORATORY | | Interpretive Information: <60 mL/min/1.73 sq m | SERVICES, CORE | | Chronic Kidney Disease <15 mL/min/1.73 sq m | | | Kidney Failure Estimated GFR greater that 60 mL/min/1.73 sq m is of | | | limited clinical value. The MDRD equation is not valid in the | | | following situations: - Patients under 18 years of age - Severe | | | malnutrition or obesity - Vegetarian diet - Rapidly changing kidney | | | function | | + + + + + + + + | Performing | Address | City/State/Zipcode | Phone Number | | Organization | | | | + + + + + | [facility] | [address] | [place] [address] | | | SERVICES, CORE | [address] | | | + + + + + CAPILLARY BLOOD GLUCOSE (NO CHG), POC (03/25/2013 1:21 AM PDT) + +---------+ + + + | Component | Value | Ref Range | Performed | Pathologist | | | | | At | Signature | + +---------+ + + + | BLOOD | 125 (H) | 60 - 99 mg/dL | [facility] - | | | GLUCOSE, | | | [place] | | | POC | | | [facility] | | | | | | OF CARE | | | | | | TESTS | | + +---------+ + + + + + | Specimen | + + | | + + + + + + + | Performing | Address | City/State/Zipcode | Phone Number | | Organization | | | | + + + + + | [facility] | [address] | [place], [place] | | | [facility] | [address] | [address] | | | TESTS | | | | + + + + + CAPILLARY BLOOD GLUCOSE (NO CHG), POC (03/24/2013 6:56 PM PDT) + +---------+ + + + | Component | Value | Ref Range | Performed | Pathologist | | | | | At | Signature | + +---------+ + + + | BLOOD | 115 (H) | 60 - 99 mg/dL | [facility] - | | | GLUCOSE, | | | [facility] | | | POC | | | [facility] | | | | | | OF CARE | | | | | | TESTS | | + +---------+ + + + + + | Specimen | + + | | + + + + + + + | Performing | Address | City/State/Zipcode | Phone Number | | Organization | | | | + + + + + | [facility] | [address] | [place], [place] | | | [facility] | [address] | [address] | | | TESTS | | | | + + + + + CAPILLARY BLOOD GLUCOSE (NO CHG), POC (03/24/2013 6:31 PM PDT) + +-------+ + + + | Component | Value | Ref Range | Performed | Pathologist | | | | | At | Signature | + +-------+ + + + | BLOOD | 85 | 60 - 99 mg/dL | [facility] - | | | GLUCOSE, | | | [facility] | | | POC | | | [facility] | | | | | | OF CARE | | | | | | TESTS | | + +-------+ + + + + + | Specimen | + + | | + + + + + + + | Performing | Address | City/State/Zipcode | Phone Number | | Organization | | | | + + + + + | [facility] | [address] | [place], [place] | | | [facility] | [address] | [address] | | | TESTS | | | | + + + + + CAPILLARY BLOOD GLUCOSE (NO CHG), POC (03/24/2013 5:44 PM PDT) + +-------+ + + + | Component | Value | Ref Range | Performed | Pathologist | | | | | At | Signature | + +-------+ + + + | BLOOD | 65 | 60 - 99 mg/dL | [facility] - | | | GLUCOSE, | | | [facility] | | | POC | | | [facility] | | | | | | OF CARE | | | | | | TESTS | | + +-------+ + + + + + | Specimen | + + | | + + + + + + + | Performing | Address | City/State/Zipcode | Phone Number | | Organization | | | | + + + + + | [facility] | [address] | [place], [place] | | | [facility] OF [facility] | [address] | [address] | | | TESTS | | | | + + + + + CAPILLARY BLOOD GLUCOSE (NO CHG), POC (03/24/2013 1:05 PM PDT) + +-------+ + + + | Component | Value | Ref Range | Performed | Pathologist | | | | | At | Signature | + +-------+ + + + | BLOOD | 62 | 60 - 99 mg/dL | [facility] - | | | GLUCOSE, | | | [facility] | | | POC | | | [facility] | | | | | | OF CARE | | | | | | TESTS | | + +-------+ + + + + + | Specimen | + + | | + + + + + + + | Performing | Address | City/State/Zipcode | Phone Number | | Organization | | | | + + + + + | [facility] | [address] | [place], [place] | | | [facility] CARE | [address] | [address] | | | TESTS | | | | + + + + + CAPILLARY BLOOD GLUCOSE (NO CHG), POC (03/24/2013 1:02 PM PDT) + +-------+ + + + | Component | Value | Ref Range | Performed | Pathologist | | | | | At | Signature | + +-------+ + + + | BLOOD | 66 | 60 - 99 mg/dL | [facility] - | | | GLUCOSE, | | | [facility] | | | POC | | | [place] | | | | | | OF CARE | | | | | | TESTS | | + +-------+ + + + + + | Specimen | + + | | + + + + + + + | Performing | Address | City/State/Zipcode | Phone Number | | Organization | | | | + + + + + | [facility] | [address] | [place], [place] | | | [facility] OF [facility] | [address] | [address] | | | TESTS | | | | + + + + + PHOSPHORUS, PLASMA (03/24/2013 12:39 PM PDT) + +-------+ + + + | Component | Value | Ref Range | Performed | Pathologist | | | | | At | Signature | + +-------+ + + + | PHOSPHORUS, | 3.8 | 2.4 - 4.7 mg/dL | [facility] | | | PLASMA | | | LABORATORY | | | (LAB) | | | SERVICES, | | | | | | CORE | | + +-------+ + + + + + | Specimen | + + | Blood - Blood | + + + + + + + | Performing | Address | City/State/Zipcode | Phone Number | | Organization | | | | + + + + + | [facility] | [address] | [place] [address] | | | SERVICES, CORE | [address] | | | + + + + + CBC (HEMOGRAM) ONLY (03/24/2013 1:29 AM PDT) + + + + + + | Component | Value | Ref Range | Performed | Pathologist | | | | | At | Signature | + + + + + + | WHITE CELL | 14.40 (H) | 4.40 - 11.00 | [facility] | | | COUNT | | K/cu mm | LABORATORY | | | | | | SERVICES, | | | | | | CORE | | + + + + + + | RED CELL | 3.42 (L) | 4.00 - 5.20 | [facility] | | | COUNT | | M/cu mm | LABORATORY | | | | | | SERVICES, | | | | | | CORE | | + + + + + + | HEMOGLOBIN | 10.3 (L) | 12.0 - 16.0 | [facility] | | | | | g/dL | LABORATORY | | | | | | SERVICES, | | | | | | CORE | | + + + + + + | HEMATOCRIT | 32.1 (L) | 36.0 - 46.0 % | [facility] | | | | | | LABORATORY | | | | | | SERVICES, | | | | | | CORE | | + + + + + + | MCV | 93.9 | 80.0 - 96.0 fL | [facility] | | | | | | LABORATORY | | | | | | SERVICES, | | | | | | CORE | | + + + + + + | MCHC | 32.1 (L) | 33.0 - 35.5 | [facility] | | | | | g/dL | LABORATORY | | | | | | SERVICES, | | | | | | CORE | | + + + + + + | RDW SD | 45.5 | 35.1 - 46.3 fL | [facility] | | | | | | LABORATORY | | | | | | SERVICES, | | | | | | CORE | | + + + + + + | PLATELET | 253 | 150 - 400 K/cu | [facility] | | | COUNT | | mm | LABORATORY | | | | | | SERVICES, | | | | | | CORE | | + + + + + + | MPV | 9.6 (L) | 9.7 - 12.3 fL | [facility] | | | | | | LABORATORY | | | | | | SERVICES, | | | | | | CORE | | + + + + + + | NRBC% | 0.0 | 0.0 - 0.3 % | [facility] | | | | | | LABORATORY | | | | | | SERVICES, | | | | | | CORE | | + + + + + + | NRBC# | 0.00 | 0.00 - 0.02 | [facility] | | | | | K/cu mm | LABORATORY | | | | | | SERVICES, | | | | | | CORE | | + + + + + + + + | Specimen | + + | Blood - Blood | + + + + + | Narrative | Performed At | + + + | New methodology and reference ranges for some CBC/Differential | [facility] | | analytes in effect on 02/27/13. | LABORATORY | | | [place] [facility] | + + + + + + + + | Performing | Address | City/State/Zipcode | Phone Number | | Organization | | | | + + + + + | [facility] | [address] | [place] [address] | | | SERVICES, [place] | [address] | | | + + + + + PHOSPHORUS, PLASMA (03/24/2013 1:29 AM PDT) + +---------+ + + + | Component | Value | Ref Range | Performed | Pathologist | | | | | At | Signature | + +---------+ + + + | PHOSPHORUS, | 1.0 (L) | 2.4 - 4.7 mg/dL | [facility] | | | PLASMA | | | LABORATORY | | | (LAB) | | | SERVICES, | | | | | | CORE | | + +---------+ + + + + + | Specimen | + + | Blood - Blood | + + + + + + + | Performing | Address | City/State/Zipcode | Phone Number | | Organization | | | | + + + + + | [facility] | [address] | [place] [address] | | | SERVICES, CORE | [address] | | | + + + + + MAGNESIUM, PLASMA (03/24/2013 1:29 AM PDT) + +-------+ + + + | Component | Value | Ref Range | Performed | Pathologist | | | | | At | Signature | + +-------+ + + + | MAGNESIUM,P | 1.9 | 1.8 - 2.5 mg/dL | [facility] | | | [facility] | | | LABORATORY | | | | | | [facility], | | | | | | CORE | | + +-------+ + + + + + | Specimen | + + | Blood - Blood | + + + + + + + | Performing | Address | City/State/Zipcode | Phone Number | | Organization | | | | + + + + + | [facility] | [address] | [place] [address] | | | SERVICES, CORE | [address] | | | + + + + + BASIC METABOLIC SET (NA, K, CL, TCO2, BUN, CR, GLU, CA) (03/24/2013 1:29 AM PDT) + + + + + + | Component | Value | Ref Range | Performed | Pathologist | | | | | At | Signature | + + + + + + | GLUCOSE, | 81 | 60 - 99 mg/dL | [facility] | | | PLASMA | | | LABORATORY | | | (LAB) | | | SERVICES, | | | | | | CORE | | + + + + + + | BUN, PLASMA | 7 | 6 - 20 mg/dL | [facility] | | | (LAB) | | | LABORATORY | | | | | | SERVICES, | | | | | | CORE | | + + + + + + | CREATININE | 0.55 (L) | 0.60 - 1.10 | [facility] | | | PLASMA | | mg/dL | LABORATORY | | | (LAB) | | | SERVICES, | | | | | | CORE | | + + + + + + | EGFR | >60 | >60 mL/min | [facility] | | | - | | | LABORATORY | | | [place] | | | SERVICES, | | | | | | CORE | | + + + + + + | EGFR NON | >60 | >60 mL/min | [facility] | | | -[facility]ANK[facility] | | | LABORATORY | | | [facility] | | | SERVICES, | | | | | | CORE | | + + + + + + | SODIUM, | 144 | 136 - 145 | [facility] | | | PLASMA | | mmol/L | LABORATORY | | | (LAB) | | | SERVICES, | | | | | | CORE | | + + + + + + | POTASSIUM, | 3.6 | 3.4 - 5.0 | [facility] | | | PLASMA | | mmol/L | LABORATORY | | | (LAB) | | | SERVICES, | | | | | | CORE | | + + + + + + | CHLORIDE, | 109 (H) | 97 - 108 mmol/L | [facility] | | | PLASMA | | | LABORATORY | | | (LAB) | | | SERVICES, | | | | | | CORE | | + + + + + + | TOTAL CO2, | 27 | 21 - 32 mmol/L | [facility] | | | PLASMA | | | LABORATORY | | | (LAB) | | | SERVICES, | | | | | | CORE | | + + + + + + | CALCIUM, | 7.4 (L) | 8.6 - 10.2 | [facility] | | | PLASMA | | mg/dL | LABORATORY | | | (LAB) | | | SERVICES, | | | | | | CORE | | + + + + + + | ANION GAP | 8 | mmol/L | [facility] | | | | | | LABORATORY | | | | | | SERVICES, | | | | | | CORE | | + + + + + + | POTASSIUM | No Hemo | | [facility] | | | CMNT | | | LABORATORY | | | | | | SERVICES, | | | | | | CORE | | + + + + + + + + | Specimen | + + | Blood - Blood | + + + + + | Narrative | Performed At | + + + | GFR is estimated using the MDRD equation recommended by the | [facility] | | National Kidney Disease Education Program. Estimated GFR | LABORATORY | | Interpretive Information: <60 mL/min/1.73 sq m | SERVICES, CORE | | Chronic Kidney Disease <15 mL/min/1.73 sq m | | | Kidney Failure Estimated GFR greater that 60 mL/min/1.73 sq m is of | | | limited clinical value. The MDRD equation is not valid in the | | | following situations: - Patients under 18 years of age - Severe | | | malnutrition or obesity - Vegetarian diet - Rapidly changing kidney | | | function | | + + + + + + + + | Performing | Address | City/State/Zipcode | Phone Number | | Organization | | | | + + + + + | [facility] | [address] | [place] [address] | | | SERVICES, CORE | [address] | | | + + + + + POTASSIUM, PLASMA (03/23/2013 5:40 PM PDT) + +-------+ + + + | Component | Value | Ref Range | Performed | Pathologist | | | | | At | Signature | + +-------+ + + + | POTASSIUM, | 3.8 | 3.4 - 5.0 | [facility] | | | PLASMA | | mmol/L | LABORATORY | | | (LAB) | | | SERVICES, | | | | | | CORE | | + +-------+ + + + + + | Specimen | + + | Blood - Blood | + + + + + + + | Performing | Address | City/State/Zipcode | Phone Number | | Organization | | | | + + + + + | [facility] | [address] | [place] [address] | | | SERVICES, CORE | [address] | | | + + + + + TROPONIN I, PLASMA (03/23/2013 5:40 PM PDT) + +-------+ + + + | Component | Value | Ref Range | Performed | Pathologist | | | | | At | Signature | + +-------+ + + + | TROPONIN I | 0.11 | <0.80 ng/mL | [facility] | | | | | | LABORATORY | | | | | | SERVICES, | | | | | | CORE | | + +-------+ + + + + + | Specimen | + + | Blood - Blood | + + + + + + + | Performing | Address | City/State/Zipcode | Phone Number | | Organization | | | | + + + + + | [facility] | [address] | [place] [address] | | | SERVICES, CORE | [address] | | | + + + + + CULTURE, URINE BACTI (03/23/2013 12:06 PM PDT) + + + + + + | Component | Value | Ref Range | Performed | Pathologist | | | | | At | Signature | + + + + + + | CULTURE | C UrineSource: Urine | | [facility] - | | | RESULT | | | [facility] - | | | | Final CULTURE | | [place] | | | | RESULT:No growth (<1000 | | | | | | col/ml) after 24 hours | | | | + + + + + + + + | Specimen | + + | Urine - Urine | + + + + + + + | Performing | Address | City/State/Zipcode | Phone Number | | Organization | | | | + + + + + | [facility] | [address] | [place] [address] | | | [place] | | | | + + + + + ERIN MCDONALD ONLY (03/23/2013 12:06 PM PDT) + + + + + + | Component | Value | Ref Range | Performed | Pathologist | | | | | At | Signature | + + + + + + | COLOR(UR) | Straw | | [facility] | | | | | | LABORATORY | | | | | | SERVICES, | | | | | | CORE | | + + + + + + | APPEARANCE | Clear | | [facility] | | | | | | LABORATORY | | | | | | SERVICES, | | | | | | CORE | | + + + + + + | GLUCOSE(UR) | Negative | Negative, 50.0 | [facility] | | | | | mg/dL | LABORATORY | | | | | | SERVICES, | | | | | | CORE | | + + + + + + | PROTEIN(LAB | Negative | Negative, 30.0 | [facility] | | | ) | | mg/dL | LABORATORY | | | | | | SERVICES, | | | | | | CORE | | + + + + + + | BILIRUBIN | Negative | Negative | [facility] | | | | | | LABORATORY | | | | | | SERVICES, | | | | | | CORE | | + + + + + + | UROBILINOGE | <2.0 | <2.0 mg/dL | [facility] | | | N | | | LABORATORY | | | | | | SERVICES, | | | | | | CORE | | + + + + + + | PH(UR) | 5.0 | 5.0 - 8.0 | [facility] | | | | | | LABORATORY | | | | | | SERVICES, | | | | | | CORE | | + + + + + + | BLOOD | Negative | Negative | [facility] | | | | | | LABORATORY | | | | | | SERVICES, | | | | | | CORE | | + + + + + + | KETONES | Negative | Negative mg/dL | [facility] | | | | | | LABORATORY | | | | | | SERVICES, | | | | | | CORE | | + + + + + + | NITRITES | Negative | Negative | [facility] | | | | | | LABORATORY | | | | | | SERVICES, | | | | | | CORE | | + + + + + + | LEUKOCYTE | Negative | Negative | [facility] | | | ESTERASE | | | LABORATORY | | | | | | SERVICES, | | | | | | CORE | | + + + + + + | SPECIFIC | 1.008 | 1.005 - 1.030 | [facility] | | | GRAVITY | | | LABORATORY | | | | | | SERVICES, | | | | | | CORE | | + + + + + + + + | Specimen | + + | Urine - Urine | + + + + + + + | Performing | Address | City/State/Zipcode | Phone Number | | Organization | | | | + + + + + | [facility] | [address] | [place] [address] | | | SERVICES, CORE | [address] | | | + + + + + URINE, MICROSCOPIC EXAM (03/23/2013 12:06 PM PDT) + +---------+ + + + | Component | Value | Ref Range | Performed | Pathologist | | | | | At | Signature | + +---------+ + + + | RED CELLS | 1 | 0 - 3 /hpf | [facility] | | | | | | LABORATORY | | | | | | SERVICES, | | | | | | CORE | | + +---------+ + + + | WHITE CELLS | <1 | 0 - 5 /hpf | [facility] | | | | | | LABORATORY | | | | | | SERVICES, | | | | | | CORE | | + +---------+ + + + | BACTERIA | Few (A) | None /hpf | [facility] | | | | | | LABORATORY | | | | | | SERVICES, | | | | | | CORE | | + +---------+ + + + | YEAST (LAB) | None | None /hpf | [facility] | | | | | | LABORATORY | | | | | | SERVICES, | | | | | | CORE | | + +---------+ + + + | SQUAMOUS | None | None /hpf | [facility] | | | EPITHELIAL | | | LABORATORY | | | | | | SERVICES, | | | | | | CORE | | + +---------+ + + + | MUCOUS | None | None /hpf | [facility] | | | | | | LABORATORY | | | | | | SERVICES, | | | | | | CORE | | + +---------+ + + + | TRICHOMONAS | None | None /hpf | [facility] | | | | | | LABORATORY | | | | | | SERVICES, | | | | | | CORE | | + +---------+ + + + | NON-TEDDY | Kiki (A) | None /hpf | [facility] | | | S EPITH | | | LABORATORY | | | | | | SERVICES, | | | | | | CORE | | + +---------+ + + + | HYALINE | 0 | 0 - 2 /lpf | [facility] | | | CASTS | | | LABORATORY | | | | | | SERVICES, | | | | | | CORE | | + +---------+ + + + | GRANULAR | 0 | 0 - 2 /lpf | [facility] | | | CASTS | | | LABORATORY | | | | | | SERVICES, | | | | | | CORE | | + +---------+ + + + | CELLULAR | 0 | <=0 /lpf | [facility] | | | CASTS | | | LABORATORY | | | | | | SERVICES, | | | | | | CORE | | + +---------+ + + + | TRIPLE P04 | None | None /hpf | [facility] | | | CRYSTALS | | | LABORATORY | | | | | | SERVICES, | | | | | | CORE | | + +---------+ + + + | CALCIUM | None | None /hpf | [facility] | | | OXALATE | | | LABORATORY | | | ELIE | | | SERVICES, | | | | | | CORE | | + +---------+ + + + | URIC ACID | None | None /hpf | [facility] | | | CRYSTALS | | | LABORATORY | | | | | | SERVICES, | | | | | | CORE | | + +---------+ + + + | AMORPHOUS | None | None /hpf | [facility] | | | CRYSTALS | | | LABORATORY | | | | | | SERVICES, | | | | | | CORE | | + +---------+ + + + + + | Specimen | + + | Urine - Urine | + + + + + + + | Performing | Address | City/State/Zipcode | Phone Number | | Organization | | | | + + + + + | [facility] | [address] | [place] [address] | | | SERVICES, CORE | [address] | | | + + + + + 12 LEAD ECG (03/23/2013 10:06 AM PDT) + + + + + + | Component | Value | Ref Range | Performed | Pathologist | | | | | At | Signature | + + + + + + | VENTRICULAR | 97 | BPM | [facility] | | | RATE | | | OF | | | | | | CARDIOLOGY | | + + + + + + | ATRIAL RATE | 97 | BPM | [facility] | | | | | | OF | | | | | | CARDIOLOGY | | + + + + + + | P-R | 132 | ms | [facility] | | | INTERVAL | | | OF | | | | | | CARDIOLOGY | | + + + + + + | QRS | 82 | ms | [facility] | | | DURATION | | | OF | | | | | | CARDIOLOGY | | + + + + + + | QT | 376 | ms | [facility] | | | | | | OF | | | | | | CARDIOLOGY | | + + + + + + | QTC | 477 | ms | [facility] | | | | | | OF | | | | | | CARDIOLOGY | | + + + + + + | P AXIS | 24 | degrees | [facility] | | | | | | OF | | | | | | CARDIOLOGY | | + + + + + + | R AXIS | 32 | degrees | [facility] | | | | | | OF | | | | | | CARDIOLOGY | | + + + + + + | T AXIS | 9 | degrees | [facility] | | | | | | OF | | | | | | CARDIOLOGY | | + + + + + + | EKG | Normal sinus rhythmLow | | [facility] | | | DIAGNOSIS | voltage QRSBorderline | | OF | | | | ECGConfirmed by | | CARDIOLOGY | | | | LEE ARTHUR ([id number]) on | | | | | | 03/24/2013 11:18:45 PM | | | | + + + + + + + + | Specimen | + + | | + + + + + | Narrative | Performed At | + + + | Please click | [facility] | | on view image for the detailed interpretation from [employer] results. | CARDIOLOGY | + + + + + | Procedure Note | + + | Interface, Cardiology Results - 03/24/2013 11:18 PM PDT Please click on view image | | for the detailed interpretation from [employer] results. | + + + + + + + | Performing | Address | City/State/Zipcode | Phone Number | | Organization | | | | + + + + + | [facility] | [address] | [place], [place] | | | CARDIOLOGY | [address] | [address] | | + + + + + X-RAY PORTABLE CHEST 1 VIEW (03/23/2013 9:56 AM PDT) + + + + + + | Component | Value | Ref Range | Performed | Pathologist | | | | | At | Signature | + + + + + + | X-RAY | STUDY: [place] CHEST 1 VIEW | | | | | PORTABLE | 03/23/13 09:56:00 | | | | | CHEST 1 | COMPARISON: Earlier same | | | | | VIEW | day. HISTORY: Hypoxia. | | | | | | FINDINGS: The support | | | | | | equipment is unchanged. | | | | | | The cardiomediastinal | | | | | | silhouette isstable. | | | | | | Bibasilar, perihilar, | | | | | | and retrocardiac | | | | | | atelectasis is | | | | | | unchanged.Trace | | | | | | bilateral pleural | | | | | | effusions are again | | | | | | noted. There is no | | | | | | pneumothorax.No acute | | | | | | osseous and amount is | | | | | | present. IMPRESSION: | | | | | | Bibasilar atelectasis | | | | | | and trace pleural | | | | | | effusions, unchanged | | | | | | from prior. Attending | | | | | | Radiologists: LEXI Mc | | | | | | OSITO MDAuthor: | | | | | | ANGEL CASTANEDA MD I | | | | | | have personally viewed | | | | | | this procedure/exam, | | | | | | reviewed this report, | | | | | | and madechanges to it | | | | | | where appropriate. | | | | | | Final/Electronically | | | | | | signed / LEXI Mc | | | | | | OSITO 03/23/2013 | | | | | | 11:19 AM | | | | + + + + + + + + | Specimen | + + | | + + + +---------+ + + | Performing | Address | City/State/Zipcode | Phone Number | | Organization | | | | + +---------+ + + | [facility] | | | | [facility] | | | | + +---------+ + + TROPONIN I, PLASMA (03/23/2013 9:37 AM PDT) + +-------+ + + + | Component | Value | Ref Range | Performed | Pathologist | | | | | At | Signature | + +-------+ + + + | TROPONIN I | 0.17 | <0.80 ng/mL | [facility] | | | | | | LABORATORY | | | | | | SERVICES, | | | | | | CORE | | + +-------+ + + + + + | Specimen | + + | Blood - Blood | + + + + + + + | Performing | Address | City/State/Zipcode | Phone Number | | Organization | | | | + + + + + | [facility] | [address] | [place] [address] | | | [place] | [address] | | | + + + + + X-RAY CHEST 1 VIEW (03/23/2013 6:39 AM PDT) + + + + + + | Component | Value | Ref Range | Performed | Pathologist | | | | | At | Signature | + + + + + + | CHEST, 1 | EXAM: CHEST 1 VIEW | | | | | VIEW | 03/23/13 06:39:00 | | | | | | HISTORY: Sepsis | | | | | | COMPARISON: Yesterday | | | | | | FINDINGS: Nasogastric | | | | | | tube and right jugular | | | | | | venous catheter remain | | | | | | in place. | | | | | | Tracebilateral pleural | | | | | | effusions persist. | | | | | | Bilateral lower lobe | | | | | | areas of atelectasisare | | | | | | unchanged. No new | | | | | | consolidation. There | | | | | | is no pulmonary edema. | | | | | | IMPRESSION: Trace | | | | | | bilateral pleural | | | | | | effusions with unchanged | | | | | | bibasilar atelectasis. | | | | | | No newconsolidation. | | | | | | Attending Radiologists: | | | | | | BEBO AGUIRRE, | | | | | | MDAuthor: BEBO | | | | | | MD TIMOTHY I have | | | | | | personally viewed this | | | | | | procedure/exam, reviewed | | | | | | this report, and | | | | | | madechanges to it where | | | | | | appropriate. | | | | | | Final/Electronically | | | | | | signed / BEBO | | | | | | TIMOTHY 03/23/2013 8:15 | | | | | | AM | | | | + + + + + + + + | Specimen | + + | | + + + +---------+ + + | Performing | Address | City/State/Zipcode | Phone Number | | Organization | | | | + +---------+ + + | [facility] DEPARTMENT OF | | | | | RADIOLOGY | | | | + +---------+ + + CAPILLARY BLOOD GLUCOSE (NO CHG), POC (03/23/2013 2:56 AM PDT) + +---------+ + + + | Component | Value | Ref Range | Performed | Pathologist | | | | | At | Signature | + +---------+ + + + | BLOOD | 104 (H) | 60 - 99 mg/dL | [facility] - | | | GLUCOSE, | | | [facility] | | | POC | | | [facility] | | | | | | OF CARE | | | | | | TESTS | | + +---------+ + + + + + | Specimen | + + | | + + + + + + + | Performing | Address | City/State/Zipcode | Phone Number | | Organization | | | | + + + + + | [facility] | [address] | [place], [place] | | | [facility] | [address] | [phone] | | | TESTS | | | | + + + + + PHOSPHORUS, PLASMA (03/23/2013 2:49 AM PDT) + +-------+ + + + | Component | Value | Ref Range | Performed | Pathologist | | | | | At | Signature | + +-------+ + + + | PHOSPHORUS, | 3.9 | 2.4 - 4.7 mg/dL | [facility] | | | PLASMA | | | LABORATORY | | | (LAB) | | | SERVICES, | | | | | | CORE | | + +-------+ + + + + + | Specimen | + + | Blood - Blood | + + + + + + + | Performing | Address | City/State/Zipcode | Phone Number | | Organization | | | | + + + + + | [facility] | [address] | [place] [address] | | | SERVICES, CORE | [address] | | | + + + + + MAGNESIUM, PLASMA (03/23/2013 2:49 AM PDT) + +-------+ + + + | Component | Value | Ref Range | Performed | Pathologist | | | | | At | Signature | + +-------+ + + + | MAGNESIUM,P | 2.0 | 1.8 - 2.5 mg/dL | [facility] | | | LASMA | | | LABORATORY | | | | | | SERVICES, | | | | | | CORE | | + +-------+ + + + + + | Specimen | + + | Blood - Blood | + + + + + + + | Performing | Address | City/State/Zipcode | Phone Number | | Organization | | | | + + + + + | [facility] | [address] | [place] [address] | | | SERVICES, CORE | [address] | | | + + + + + CBC (HEMOGRAM) ONLY (03/23/2013 2:49 AM PDT) + + + + + + | Component | Value | Ref Range | Performed | Pathologist | | | | | At | Signature | + + + + + + | WHITE CELL | 21.02 (H) | 4.40 - 11.00 | [facility] | | | COUNT | | K/cu mm | LABORATORY | | | | | | SERVICES, | | | | | | CORE | | + + + + + + | RED CELL | 3.51 (L) | 4.00 - 5.20 | [facility] | | | COUNT | | M/cu mm | LABORATORY | | | | | | SERVICES, | | | | | | CORE | | + + + + + + | HEMOGLOBIN | 10.3 (L) | 12.0 - 16.0 | [facility] | | | | | g/dL | LABORATORY | | | | | | SERVICES, | | | | | | CORE | | + + + + + + | HEMATOCRIT | 33.0 (L) | 36.0 - 46.0 % | [facility] | | | | | | LABORATORY | | | | | | SERVICES, | | | | | | CORE | | + + + + + + | MCV | 94.0 | 80.0 - 96.0 fL | [facility] | | | | | | LABORATORY | | | | | | SERVICES, | | | | | | CORE | | + + + + + + | MCHC | 31.2 (L) | 33.0 - 35.5 | [facility] | | | | | g/dL | LABORATORY | | | | | | SERVICES, | | | | | | CORE | | + + + + + + | RDW SD | 45.6 | 35.1 - 46.3 fL | [facility] | | | | | | LABORATORY | | | | | | SERVICES, | | | | | | CORE | | + + + + + + | PLATELET | 286 | 150 - 400 K/cu | [facility] | | | COUNT | | mm | LABORATORY | | | | | | SERVICES, | | | | | | CORE | | + + + + + + | MPV | 9.7 | 9.7 - 12.3 fL | [facility] | | | | | | LABORATORY | | | | | | SERVICES, | | | | | | CORE | | + + + + + + | NRBC% | 0.0 | 0.0 - 0.3 % | [facility] | | | | | | LABORATORY | | | | | | SERVICES, | | | | | | CORE | | + + + + + + | NRBC# | 0.00 | 0.00 - 0.02 | [facility] | | | | | K/cu mm | LABORATORY | | | | | | SERVICES, | | | | | | CORE | | + + + + + + + + | Specimen | + + | Blood - Blood | + + + + + | Narrative | Performed At | + + + | New methodology and reference ranges for some CBC/Differential | [facility] | | analytes in effect on 02/27/13. | LABORATORY | | | SERVICES, CORE | + + + + + + + + | Performing | Address | City/State/Zipcode | Phone Number | | Organization | | | | + + + + + | [facility] | [address] | [place] [address] | | | SERVICES, CORE | [address] | | | + + + + + BASIC METABOLIC SET (NA, K, CL, TCO2, BUN, CR, GLU, CA) (03/23/2013 2:49 AM PDT) + + + + + + | Component | Value | Ref Range | Performed | Pathologist | | | | | At | Signature | + + + + + + | GLUCOSE, | 94 | 60 - 99 mg/dL | [facility] | | | PLASMA | | | LABORATORY | | | (LAB) | | | SERVICES, | | | | | | CORE | | + + + + + + | BUN, PLASMA | 9 | 6 - 20 mg/dL | [facility] | | | (LAB) | | | LABORATORY | | | | | | SERVICES, | | | | | | CORE | | + + + + + + | CREATININE | 0.56 (L) | 0.60 - 1.10 | [facility] | | | PLASMA | | mg/dL | LABORATORY | | | (LAB) | | | SERVICES, | | | | | | CORE | | + + + + + + | EGFR | >60 | >60 mL/min | [facility] | | | - | | | LABORATORY | | | [place] [facility] | | | SERVICES, | | | | | | CORE | | + + + + + + | EGFR NON | >60 | >60 mL/min | [facility] | | | -[facility] | | | LABORATORY | | | [facility] | | | SERVICES, | | | | | | CORE | | + + + + + + | SODIUM, | 141 | 136 - 145 | [facility] | | | PLASMA | | mmol/L | LABORATORY | | | (LAB) | | | SERVICES, | | | | | | CORE | | + + + + + + | POTASSIUM, | 4.4 | 3.4 - 5.0 | [facility] | | | PLASMA | | mmol/L | LABORATORY | | | (LAB) | | | SERVICES, | | | | | | CORE | | + + + + + + | CHLORIDE, | 111 (H) | 97 - 108 mmol/L | [facility] | | | PLASMA | | | LABORATORY | | | (LAB) | | | SERVICES, | | | | | | CORE | | + + + + + + | TOTAL CO2, | 22 | 21 - 32 mmol/L | [facility] | | | PLASMA | | | LABORATORY | | | (LAB) | | | SERVICES, | | | | | | CORE | | + + + + + + | CALCIUM, | 6.7 (LL) | 8.6 - 10.2 | [facility] | | | PLASMA | | mg/dL | LABORATORY | | | (LAB) | | | SERVICES, | | | | | | CORE | | + + + + + + | ANION GAP | 8 | mmol/L | [facility] | | | | | | LABORATORY | | | | | | SERVICES, | | | | | | CORE | | + + + + + + | POTASSIUM | No Hemo | | [facility] | | | CMNT | | | LABORATORY | | | | | | SERVICES, | | | | | | CORE | | + + + + + + + + | Specimen | + + | Blood - Blood | + + + + + | Narrative | Performed At | + + + | GFR is estimated using the MDRD equation recommended by the | [facility] | | National Kidney Disease Education Program. Estimated GFR | LABORATORY | | Interpretive Information: <60 mL/min/1.73 sq m | SERVICES, CORE | | Chronic Kidney Disease <15 mL/min/1.73 sq m | | | Kidney Failure Estimated GFR greater that 60 mL/min/1.73 sq m is of | | | limited clinical value. The MDRD equation is not valid in the | | | following situations: - Patients under 18 years of age - Severe | | | malnutrition or obesity - Vegetarian diet - Rapidly changing kidney | | | function | | + + + + + + + + | Performing | Address | City/State/Zipcode | Phone Number | | Organization | | | | + + + + + | [facility] | [address] | [place] [address] | | | SERVICES, [facility] | [address] | | | + + + + + ABSCESS BODY DRAINAGE (03/22/2013 9:25 PM PDT) + + + + + + | Component | Value | Ref Range | Performed | Pathologist | | | | | At | Signature | + + + + + + | ABSCESS | Procedure: US guided | | | | | BODY | left pelvic drainage IR | | | | | DRAINAGE | Attending: Nilesh | | | | | | Carlito Kat MD, PhD IR | | | | | | Fellow: Maria C Santiago | | | | | | DO IR Resident: None | | | | | | Preoperative diagnosis: | | | | | | diverticular abscess, | | | | | | fluid collection on CT, | | | | | | sepsisrequiring pressors | | | | | | Postoperative | | | | | | diagnosis: same | | | | | | Operations: Operation 1. | | | | | | US guided placement | | | | | | 18 gauge needle in | | | | | | abscess collection | | | | | | Operation 2. | | | | | | Fluoroscopic guided | | | | | | placement of 10 [place] | | | | | | multipurpose | | | | | | drainagecatheter in | | | | | | collection Operation 3. | | | | | | Aspiration of | | | | | | approximately 25 mL of | | | | | | purulent material. | | | | | | Indications: 83 yr old | | | | | | female with suspected | | | | | | diverticular abscess. | | | | | | Percutaneous | | | | | | drainagehas been | | | | | | requested. Medications: | | | | | | 0 mg Versed IV, 0 mcg | | | | | | Fentanyl IV. 4 mg Zofran | | | | | | IV. Moderatesedation | | | | | | was monitored by the | | | | | | Interventional Radiology | | | | | | nursing team. Contrast: | | | | | | None Complications: | | | | | | None immediate. | | | | | | Fluoroscopy time: 0 min | | | | | | and 24 sec Procedure: | | | | | | The attending physician | | | | | | was present for the | | | | | | entire procedure. | | | | | | Written informedconsent | | | | | | was obtained in a PARQ | | | | | | conference with the | | | | | | patient. The patient was | | | | | | prepped and draped in | | | | | | the usual manner. Using | | | | | | local anestheticand US | | | | | | guidance an 18 G open | | | | | | needle was advanced into | | | | | | the fluid collection | | | | | | froma left | | | | | | inferior/lateral | | | | | | approach. Purulent fluid | | | | | | was aspirated and sent | | | | | | forculture and | | | | | | sensitivity. Serial | | | | | | dilatation was performed | | | | | | over a guide wire heidy | | | | | | 10 [place]ayan multipurpose | | | | | | drainage catheter was | | | | | | advanced into the | | | | | | collectionusing | | | | | | fluoroscopic guidance. | | | | | | The catheter was | | | | | | aspirated and placed to | | | | | | gravitydrainage. The | | | | | | catheter was sutured in | | | | | | place. A completion | | | | | | digital image | | | | | | wasobtained. Findings: | | | | | | There is a fluid | | | | | | collection in the left | | | | | | pelvis. The collection | | | | | | has mixedechogenicity. | | | | | | A total of 25 mL of | | | | | | fluid was aspirated. The | | | | | | fluid waspurulent. A | | | | | | 12 [place]aguayan drainage | | | | | | catheter was positioned | | | | | | in the collection. | | | | | | Impression: 1. Fluid | | | | | | collection in the left | | | | | | pelvis consistent with | | | | | | an abscess 2. 10 [place] | | | | | | multipurpose drainage | | | | | | catheter placed in same. | | | | | | Attending Radiologists: | | | | | | CARLITO GALLOWAY, | | | | | | MDAuthor: CARLITO | | | | | | MD NILESH I have | | | | | | personally viewed this | | | | | | procedure/exam, reviewed | | | | | | this report, and | | | | | | madechanges to it where | | | | | | appropriate. | | | | | | Final/Electronically | | | | | | signed / CARLITO | | | | | | NILESH 03/23/2013 13:44 | | | | | | PM | | | | + + + + + + + + | Specimen | + + | | + + + +---------+ + + | Performing | Address | City/State/Zipcode | Phone Number | | Organization | | | | + +---------+ + + | [facility] | | | | | RADIOLOGY | | | | + +---------+ + + CULTURE, WOUND DEEP W/ ANAEROBE (03/22/2013 9:15 PM PDT) + + + + + + | Component | Value | Ref Range | Performed | Pathologist | | | | | At | Signature | + + + + + + | SPECIMEN | Aspirate | | [facility] - | | | TYPE | | | AIR[place] - | | | | | | [place] | | + + + + + + | CULTURE | C Wound [facility]: | | JAUREGUI - | | | RESULT | Aspirate | | AIRPORT - | | | | Final GRAM | | [place] | | | | STAIN:Many | | | | | | polymorphonuclear cells | | | | | | No squamous epithelial | | | | | | cells Many Gram negative | | | | | | bacilli Many small Gram | | | | | | positive bacilli Many | | | | | | Gram positive cocci | | | | | | CULTURE RESULT:4+ | | | | | | Escherichia coli 2+ | | | | | | Bacteroides fragilis | | | | | | Group Presumptive | | | | | | identification 2+ | | | | | | Peptostreptococcus | | | | | | species | | | | | | ORGANISM:............... | | | | | | ....Escherichia | | | | | | coliAmoxicillin/Clavulan | | | | | | ate SAmpicillin | | | | | | | | | | | | RCefazolin | | | | | | | | | | | | SCiprofloxacin | | | | | | RGentamicin | | | | | | | | | | | | STobramycin | | | | | | | | | | | | STrimethoprim/Sulfa | | | | | | S | | | | + + + + + + + + | Specimen | + + | Aspirate | + + + + + + + | Performing | Address | City/State/Zipcode | Phone Number | | Organization | | | | + + + + + | [facility] | [address] | [place] [address] | | | [place] | | | | + + + + + X-RAY CHEST 1 VIEW (03/22/2013 6:04 PM PDT) + + + + + + | Component | Value | Ref Range | Performed | Pathologist | | | | | At | Signature | + + + + + + | CHEST, 1 | STUDY:CHEST 1 VIEW | | | | | VIEW | 03/22/13 18:04:00 | | | | | | COMPARISON:No prior | | | | | | INDICATION: Sepsis, | | | | | | right IJ line | | | | | | FINDINGS:The right IJ | | | | | | line terminates in the | | | | | | mid-SVC. Feeding tube | | | | | | terminates in theupper | | | | | | stomach with the | | | | | | sidehole in the lower | | | | | | esophagus. The cardiac | | | | | | silhouette is normal in | | | | | | size. The thoracic | | | | | | aorta is tortuous | | | | | | andcalcified. There is | | | | | | mild perihilar and | | | | | | basilar atelectasis. | | | | | | There is | | | | | | nopneumothorax. No | | | | | | evidence of large | | | | | | effusion. There is | | | | | | mild central | | | | | | airwaythickening. | | | | | | There is generalized | | | | | | osteopenia. There is | | | | | | thoracolumbarscoliosis. | | | | | | No acute osseous | | | | | | abnormalities. | | | | | | IMPRESSION: Right IJ | | | | | | line terminates in the | | | | | | mid-SVC. Bilateral lower | | | | | | lobe atelectasis. | | | | | | Attending Radiologists: | | | | | | CHRISTO KIM MDAuthor: | | | | | | CHRISTO KIM MD I have | | | | | | personally viewed this | | | | | | procedure/exam, reviewed | | | | | | this report, and | | | | | | madechanges to it where | | | | | | appropriate. | | | | | | Final/Electronically | | | | | | signed / CHRISTO KIM | | | | | | 03/22/2013 19:09 PM | | | | + + + + + + + + | Specimen | + + | | + + + +---------+ + + | Performing | Address | City/State/Zipcode | Phone Number | | Organization | | | | + +---------+ + + | [facility] | | | | | RADIOLOGY | | | | + +---------+ + + ANTIBODY SCREEN (03/22/2013 5:01 PM PDT) + + + + + + | Component | Value | Ref Range | Performed | Pathologist | | | | | At | Signature | + + + + + + | Antibody | Negative | | [facility] | | | Screen | | | LABORATORY | | | | | | SERVICES, | | | | | | TRANSFUSION | | | | | | MEDICINE | | + + + + + + + + | Specimen | + + | Blood - Blood | + + + + + + + | Performing | Address | City/State/Zipcode | Phone Number | | Organization | | | | + + + + + | [facility] | [address] | [place] [address] | | | SERVICES, | [address] | | | | TRANSFUSION MEDICINE | | | | + + + + + ABO & RH TYPE (03/22/2013 5:01 PM PDT) + + + + + + | Component | Value | Ref Range | Performed | Pathologist | | | | | At | Signature | + + + + + + | ABO Group | O | | [facility] | | | | | | LABORATORY | | | | | | SERVICES, | | | | | | TRANSFUSION | | | | | | MEDICINE | | + + + + + + | Rh Type | Positive | | [facility] | | | | | | LABORATORY | | | | | | SERVICES, | | | | | | TRANSFUSION | | | | | | MEDICINE | | + + + + + + + + | Specimen | + + | Blood - Blood | + + + + + + + | Performing | Address | City/State/Zipcode | Phone Number | | Organization | | | | + + + + + | [facility] | [address] | [place] [address] | | | SERVICES, | [address] | | | | TRANSFUSION MEDICINE | | | | + + + + + LIVER SET (AST,ALT,BILI TOTAL,BILI DIRECT,ALK PHOS,ALB,PROT TOTAL) (03/22/2013 5:00 PM PDT ) + +---------+ + + + | Component | Value | Ref Range | Performed | Pathologist | | | | | At | Signature | + +---------+ + + + | ALBUMIN, | 2.3 (L) | 3.5 - 4.7 g/dL | [facility] | | | PLASMA | | | LABORATORY | | | (LAB) | | | SERVICES, | | | | | | CORE | | + +---------+ + + + | BILIRUBIN | 0.3 | 0.3 - 1.2 mg/dL | [facility] | | | TOTAL | | | LABORATORY | | | | | | SERVICES, | | | | | | CORE | | + +---------+ + + + | BILIRUBIN | 0.1 | 0.0 - 0.3 mg/dL | [facility] | | | DIRECT | | | LABORATORY | | | | | | SERVICES, | | | | | | CORE | | + +---------+ + + + | ALK PHOS | 93 | 53 - 141 U/L | [facility] | | | | | | LABORATORY | | | | | | SERVICES, | | | | | | CORE | | + +---------+ + + + | AST(SGOT) | 42 (H) | 15 - 41 U/L | [facility] | | | | | | LABORATORY | | | | | | SERVICES, | | | | | | CORE | | + +---------+ + + + | ALT (SGPT) | 15 | 12 - 60 U/L | [facility] | | | | | | LABORATORY | | | | | | SERVICES, | | | | | | CORE | | + +---------+ + + + | TOTAL | 5.6 (L) | 6.4 - 8.2 g/dL | [facility] | | | PROTEIN, | | | LABORATORY | | | PLASMA | | | SERVICES, | | | (LAB) | | | CORE | | + +---------+ + + + + + | Specimen | + + | Blood - Blood | + + + + + | Narrative | Performed At | + + + | New reference range effective 2012 for Total proteins | [facility] | | performed in Core Lab only. | LABORATORY | | | SERVICES, CORE | + + + + + + + + | Performing | Address | City/State/Zipcode | Phone Number | | Organization | | | | + + + + + | [facility] | [address] | [place] [address] | | | SERVICES, CORE | [address] | | | + + + + + CBC (HEMOGRAM) ONLY (03/22/2013 5:00 PM PDT) + + + + + + | Component | Value | Ref Range | Performed | Pathologist | | | | | At | Signature | + + + + + + | WHITE CELL | 22.25 (H) | 4.40 - 11.00 | [facility] | | | COUNT | | K/cu mm | LABORATORY | | | | | | SERVICES, | | | | | | CORE | | + + + + + + | RED CELL | 3.52 (L) | 4.00 - 5.20 | [facility] | | | COUNT | | M/cu mm | LABORATORY | | | | | | SERVICES, | | | | | | CORE | | + + + + + + | HEMOGLOBIN | 10.7 (L) | 12.0 - 16.0 | [facility] | | | | | g/dL | LABORATORY | | | | | | SERVICES, | | | | | | CORE | | + + + + + + | HEMATOCRIT | 33.7 (L) | 36.0 - 46.0 % | [facility] | | | | | | LABORATORY | | | | | | SERVICES, | | | | | | CORE | | + + + + + + | MCV | 95.7 | 80.0 - 96.0 fL | [facility] | | | | | | LABORATORY | | | | | | SERVICES, | | | | | | CORE | | + + + + + + | MCHC | 31.8 (L) | 33.0 - 35.5 | [facility] | | | | | g/dL | LABORATORY | | | | | | SERVICES, | | | | | | CORE | | + + + + + + | RDW SD | 45.8 | 35.1 - 46.3 fL | [facility] | | | | | | LABORATORY | | | | | | SERVICES, | | | | | | CORE | | + + + + + + | PLATELET | 282 | 150 - 400 K/cu | [facility] | | | COUNT | | mm | LABORATORY | | | | | | SERVICES, | | | | | | CORE | | + + + + + + | MPV | 9.8 | 9.7 - 12.3 fL | [facility] | | | | | | LABORATORY | | | | | | SERVICES, | | | | | | CORE | | + + + + + + | NRBC% | 0.0 | 0.0 - 0.3 % | [facility] | | | | | | LABORATORY | | | | | | SERVICES, | | | | | | CORE | | + + + + + + | NRBC# | 0.00 | 0.00 - 0.02 | [facility] | | | | | K/cu mm | LABORATORY | | | | | | SERVICES, | | | | | | CORE | | + + + + + + + + | Specimen | + + | Blood - Blood | + + + + + | Narrative | Performed At | + + + | New methodology and reference ranges for some CBC/Differential | [facility] | | analytes in effect on 02/27/13. | LABORATORY | | | [place] | + + + + + + + + | Performing | Address | City/State/Zipcode | Phone Number | | Organization | | | | + + + + + | [facility] | [address] | [place] [address] | | | SERVICES, [place] | [address] | | | + + + + + LACTIC ACID (03/22/2013 5:00 PM PDT) + +-------+ + + + | Component | Value | Ref Range | Performed | Pathologist | | | | | At | Signature | + +-------+ + + + | LACTATE | 1.0 | mmol/L | [facility] | | | | | | LABORATORY | | | | | | SERVICES, | | | | | | CORE | | + +-------+ + + + + + | Specimen | + + | Blood - Blood | + + + + + | Narrative | Performed At | + + + | Reference Range: Venous blood: 0.5 - 2.2 mmol/L | [facility] | | Arterial blood: 0.5 - 1.6 mmol/L | LABORATORY | | | [place] [address] | + + + + + + + + | Performing | Address | City/State/Zipcode | Phone Number | | Organization | | | | + + + + + | [facility] | [address] | [place] [address] | | | SERVICES, [place] | [address] | | | + + + + + COAGULOPATHY PANEL (INR,APTT,FIBRINOGEN) (03/22/2013 5:00 PM PDT) + + + + + + | Component | Value | Ref Range | Performed | Pathologist | | | | | At | Signature | + + + + + + | INR | 1.42 (H) | 0.90 - 1.20 INR | [facility] | | | | | | LABORATORY | | | | | | SERVICES, | | | | | | CORE | | + + + + + + | APTT | 33.9 | 26.0 - 36.0 | [facility] | | | | | seconds | LABORATORY | | | | | | SERVICES, | | | | | | CORE | | + + + + + + | FIBRINOGEN | 504 (H) | 200 - 450 mg/dL | [facility] | | | LEVEL | | | LABORATORY | | | | | | SERVICES, | | | | | | CORE | | + + + + + + + + | Specimen | + + | Blood - Blood | + + + + + | Narrative | Performed At | + + + | INR Therapeutic ranges for full anticoagulation: INR for | [facility] | | Venous Thromboembolism (2.0 - 3.0) INR INR for | LABORATORY | | most patients with mech. valves (2.5 - 3.5) INR APTT | SERVICES, CORE | | Therapeutic Range: (75 - 120) sec | | | Heparin levels of 0.35 - 0.7 U/mL | | + + + + + + + + | Performing | Address | City/State/Zipcode | Phone Number | | Organization | | | | + + + + + | [facility] | [address] | [place] [address] | | | [place], [place] | [address] | | | + + + + + MAGNESIUM, PLASMA (03/22/2013 5:00 PM PDT) + +-------+ + + + | Component | Value | Ref Range | Performed | Pathologist | | | | | At | Signature | + +-------+ + + + | MAGNESIUM,P | 2.2 | 1.8 - 2.5 mg/dL | [facility] | | | [facility] | | | LABORATORY | | | | | | SERVICES, | | | | | | CORE | | + +-------+ + + + + + | Specimen | + + | Blood - Blood | + + + + + + + | Performing | Address | City/State/Zipcode | Phone Number | | Organization | | | | + + + + + | [facility] | [address] | [place] [address] | | | SERVICES, CORE | [address] | | | + + + + + RENAL FUNCTION SET (NA,K,CL,CO2,BUN,CREAT,GLUC,CA,PHOS,ALB ) (03/22/2013 5:00 PM PDT) + + + + + + | Component | Value | Ref Range | Performed | Pathologist | | | | | At | Signature | + + + + + + | GLUCOSE, | 98 | 60 - 99 mg/dL | [facility] | | | PLASMA | | | LABORATORY | | | (LAB) | | | SERVICES, | | | | | | CORE | | + + + + + + | BUN, PLASMA | 10 | 6 - 20 mg/dL | [facility] | | | (LAB) | | | LABORATORY | | | | | | SERVICES, | | | | | | CORE | | + + + + + + | CREATININE | 0.60 | 0.60 - 1.10 | [facility] | | | PLASMA | | mg/dL | LABORATORY | | | (LAB) | | | SERVICES, | | | | | | CORE | | + + + + + + | EGFR | >60 | >60 mL/min | [facility] | | | - | | | LABORATORY | | | [place] | | | SERVICES, | | | | | | CORE | | + + + + + + | EGFR NON | >60 | >60 mL/min | [facility] | | | -[facility] | | | LABORATORY | | | [facility] | | | SERVICES, | | | | | | CORE | | + + + + + + | SODIUM, | 143 | 136 - 145 | [facility] | | | PLASMA | | mmol/L | LABORATORY | | | (LAB) | | | SERVICES, | | | | | | CORE | | + + + + + + | POTASSIUM, | 3.6 | 3.4 - 5.0 | [facility] | | | PLASMA | | mmol/L | LABORATORY | | | (LAB) | | | SERVICES, | | | | | | CORE | | + + + + + + | CHLORIDE, | 112 (H) | 97 - 108 mmol/L | [facility] | | | PLASMA | | | LABORATORY | | | (LAB) | | | SERVICES, | | | | | | CORE | | + + + + + + | TOTAL CO2, | 21 | 21 - 32 mmol/L | [facility] | | | PLASMA | | | LABORATORY | | | (LAB) | | | SERVICES, | | | | | | CORE | | + + + + + + | CALCIUM, | 6.8 (LL) | 8.6 - 10.2 | [facility] | | | PLASMA | | mg/dL | LABORATORY | | | (LAB) | | | SERVICES, | | | | | | CORE | | + + + + + + | ALBUMIN, | 2.2 (L) | 3.5 - 4.7 g/dL | [facility] | | | PLASMA | | | LABORATORY | | | (LAB) | | | SERVICES, | | | | | | CORE | | + + + + + + | PHOSPHORUS, | 1.6 (L) | 2.4 - 4.7 mg/dL | [facility] | | | PLASMA | | | LABORATORY | | | (LAB) | | | SERVICES, | | | | | | CORE | | + + + + + + | POTASSIUM | | | [facility] | | | CMNT | | | LABORATORY | | | | | | SERVICES, | | | | | | CORE | | + + + + + + | ANION GAP | 10 | mmol/L | [facility] | | | | | | LABORATORY | | | | | | SERVICES, | | | | | | CORE | | + + + + + + | ANION | 14 (H) | 4 - 11 mmol/L | [facility] | | | GAP(ALB | | | LABORATORY | | | CORRECTED) | | | SERVICES, | | | | | | CORE | | + + + + + + + + | Specimen | + + | Blood - Blood | + + + + + + + | Performing | Address | City/State/Zipcode | Phone Number | | Organization | | | | + + + + + | [facility] | [address] | [place] [address] | | | SERVICES, [place] | [address] | | | + + + + + ORDERS OTHER (03/22/2013 12:00 AM PDT) + + + | Narrative | Performed At | + + + | | | | | | + + + + + | Procedure Note | + + | Other, Faculty - 04/17/2013 9:42 AM PDT | + + ORDERS OTHER (03/22/2013 12:00 AM PDT) + + + | Narrative | Performed At | + + + | | | | | | + + + + + | Procedure Note | + + | KadenLukas - 04/02/2013 8:36 AM PDT | + + documented in this encounter Visit Diagnoses + + | Diagnosis | + + | 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 | + + | CHF (congestive heart failure) (HCC) Congestive heart failure, unspecified | + + | Septic shock (HCC) | + + | Abdominal abscess Peritoneal abscess | + + | Hypervolemia Other fluid overload | + + | Anemia Anemia, unspecified | + + | Electrolyte abnormality Electrolyte and fluid disorders not elsewhere classified | + + documented in this encounter Administered Medications + +---------+ + +------+------+ | Medication Order | MAR | Action | Dose | Rate | Site | | | Action | Date | | | | + +---------+ + +------+------+ | acetaminophen (aka OFIRMEV) IV | New Bag | 03/27/20 | 1,000 mg | | | | 1,000 mg 1,000 mg, intravenous, | | 13 5:36 | | | | | EVERY 6 HOURS NEEDED, Starting | | PM PDT | | | | | 03/22/13 at 2308, Until Bisi | | | | | | | 04/02/13 at 0757, mild pain, fever | | | | | | + +---------+ + +------+------+ +---------+ + +---+---+ | New Bag | 03/27/20 | 1,000 mg | | | | | 13 4:53 | | | | | | AM PDT | | | | +---------+ + +---+---+ | New Bag | 03/25/20 | 1,000 mg | | | | | 13 12:35 | | | | | | AM PDT | | | | +---------+ + +---+---+ +---+---+ | | | +---+---+ + +---------+ +--------+---+---+ | albumin human (BUMINATE, | New Bag | 03/27/20 | 12.5 g | | | | FLEXBUMIN) 25 % injection 12.5 g | | 13 3:27 | | | | | 12.5 g, intravenous, ONCE, 1 | | AM PDT | | | | | dose, 03/27/13 at 0300 | | | | | | + +---------+ +--------+---+---+ +---+---+ | | | +---+---+ + +-------+ +--------+---+---+ | albuterol 0.083% (aka | Given | 03/23/20 | 2.5 mg | | | | PROVENTIL,VENTOLIN) 2.5 mg /3 mL | | 13 9:48 | | | | | (0.083 %) nebulizer solution 2.5 | | AM PDT | | | | | mg 2.5 mg, inhalation, EVERY 4 | | | | | | | HOURS NEEDED, Starting Mon | | | | | | | 03/23/13 at 0923, Until Mon | | | | | | | 03/23/13 at 2021, dyspnea/SOB | | | | | | + +-------+ +--------+---+---+ +---+---+ | | | +---+---+ + +-------+ +------+---+---+ | albuterol-ipratropium (aka | Given | 03/31/20 | 3 mL | | | | MARIANELA-HERACLIO) nebulizer solution 3 mL | | 13 4:15 | | | | | 3 mL, inhalation, EVERY 6 HOURS | | AM PDT | | | | | NEEDED, Starting Sat03/24/13 | | | | | | | at 0918, Until Sat03/31/13 at | | | | | | | 0419, dyspnea/SOB | | | | | | + +-------+ +------+---+---+ +-------+ +------+---+---+ | Given | 03/28/20 | 3 mL | | | | | 13 11:34 | | | | | | PM PDT | | | | +-------+ +------+---+---+ | Given | 03/28/20 | 3 mL | | | | | 13 9:25 | | | | | | AM PDT | | | | +-------+ +------+---+---+ +---+---+ | | | +---+---+ + +-------+ +------+---+---+ | albuterol-ipratropium (DUO-NEB) | Given | 03/31/20 | 3 mL | | | | nebulizer solution 3 mL 3 mL, | | 13 8:00 | | | | | inhalation, TWICE DAILY, First | | AM PDT | | | | | dose (after last modification) on | | | | | | | 03/31/13 at 0900, Until | | | | | | | Discontinued | | | | | | + +-------+ +------+---+---+ +---+---+ | | | +---+---+ + +-------+ +------+---+---+ | albuterol-ipratropium (DUO-NEB) | Given | 04/09/20 | 3 mL | | | | nebulizer solution 3 mL 3 mL, | | 13 5:05 | | | | | inhalation, EVERY 6 HOURS, First | | AM PDT | | | | | dose (after last modification) on | | | | | | | 03/31/13 at 2000, Until | | | | | | | Discontinued | | | | | | + +-------+ +------+---+---+ +-------+ +------+---+---+ | Given | 04/08/20 | 3 mL | | | | | 13 7:54 | | | | | | AM PDT | | | | +-------+ +------+---+---+ | Given | 04/07/20 | 3 mL | | | | | 13 9:15 | | | | | | PM PDT | | | | +-------+ +------+---+---+ +---+---+ | | | +---+---+ + +-------+ +--------+---+---+ | amoxicillin-clavulanate | Given | 03/26/20 | 875 mg | | | | (AUGMENTIN) 875-125 mg 875 mg | | 13 10:02 | | | | | 875 mg, oral, TWICE DAILY, First | | AM PDT | | | | | dose on Sat03/25/13 at 1300, | | | | | | | Until Discontinued | | | | | | + +-------+ +--------+---+---+ +-------+ +--------+---+---+ | Given | 03/25/20 | 875 mg | | | | | 13 10:57 | | | | | | PM PDT | | | | +-------+ +--------+---+---+ +---+---+ | | | +---+---+ + +---------+ +--------+---+---+ | bumetanide (BUMEX) injection | New Bag | 04/03/20 | 0.5 mg | | | | 0.5 mg 0.5 mg, intravenous, | | 13 10:45 | | | | | TWICE DAILY, 2 doses, First dose | | AM PDT | | | | | on Sat04/03/13 at 1000, Last dose | | | | | | | on Sat04/03/13 at 2100 | | | | | | + +---------+ +--------+---+---+ +---+---+ | | | +---+---+ + +-------+ +------+---+---+ | bumetanide (BUMEX) tablet 1 mg | Given | 04/08/20 | 1 mg | | | | 1 mg, oral, TWICE DAILY | | 13 8:45 | | | | | (DIURETIC), First dose on Fri | | AM PDT | | | | | 04/03/13 at 2030, Until | | | | | | | Discontinued | | | | | | + +-------+ +------+---+---+ +-------+ +------+---+---+ | Given | 04/07/20 | 1 mg | | | | | 13 5:52 | | | | | | PM PDT | | | | +-------+ +------+---+---+ | Given | 04/07/20 | 1 mg | | | | | 13 8:56 | | | | | | AM PDT | | | | +-------+ +------+---+---+ +---+---+ | | | +---+---+ + +-------+ +---------+---+---+ | carvedilol (COREG) tablet 12.5 | Given | 03/30/20 | 12.5 mg | | | | mg 12.5 mg, oral, TWICE DAILY | | 13 9:27 | | | | | WITH MEALS, First dose on Mon | | PM PDT | | | | | 03/30/13 at 2100, Until | | | | | | | Discontinued | | | | | | + +-------+ +---------+---+---+ +---+---+ | | | +---+---+ + +-------+ + +---+---+ | carvedilol (COREG) tablet 3.125 | Given | 04/08/20 | 3.125 mg | | | | mg 3.125 mg, oral, TWICE DAILY | | 13 8:45 | | | | | WITH MEALS, First dose (after | | AM PDT | | | | | last modification) on Sat03/31/13 | | | | | | | at 0730, Until Discontinued | | | | | | + +-------+ + +---+---+ +-------+ + +---+---+ | Given | 04/07/20 | 3.125 mg | | | | | 13 5:52 | | | | | | PM PDT | | | | +-------+ + +---+---+ | Given | 04/07/20 | 3.125 mg | | | | | 13 8:56 | | | | | | AM PDT | | | | +-------+ + +---+---+ +---+---+ | | | +---+---+ + +-------+ + +---+---+ | carvedilol (COREG) tablet 3.125 | Given | 04/11/20 | 3.125 mg | | | | mg 3.125 mg, feeding tube, | | 13 9:08 | | | | | TWICE DAILY WITH MEALS, First | | AM PDT | | | | | dose (after last modification) on | | | | | | | 04/08/13 at 1700, Until | | | | | | | Discontinued | | | | | | + +-------+ + +---+---+ +-------+ + +---+---+ | Given | 04/10/20 | 3.125 mg | | | | | 13 4:14 | | | | | | PM PDT | | | | +-------+ + +---+---+ | Given | 04/10/20 | 3.125 mg | | | | | 13 9:10 | | | | | | AM PDT | | | | +-------+ + +---+---+ +---+---+ | | | +---+---+ + +-------+ +--------+---+---+ | cholecalciferol (Vitamin D3) | Given | 04/11/20 | 2,000 | | | | (VITAMIN D-3) tablet 2,000 Units | | 13 9:08 | Units | | | | 2,000 Units, oral, DAILY, First | | AM PDT | | | | | dose on [facility] 04/02/13 at 1500, | | | | | | | Until Discontinued | | | | | | + +-------+ +--------+---+---+ +-------+ +--------+---+---+ | Given | 04/10/20 | 2,000 | | | | | 13 9:10 | Units | | | | | AM PDT | | | | +-------+ +--------+---+---+ | Given | 04/09/20 | 2,000 | | | | | 13 8:38 | Units | | | | | AM PDT | | | | +-------+ +--------+---+---+ +---+---+ | | | +---+---+ + +---------+ +--------+---+---+ | ciprofloxacin (aka CIPRO) IV | New Bag | 03/23/20 | 400 mg | | | | 400 mg 400 mg, intravenous, | | 13 9:29 | | | | | EVERY 12 HOURS, First dose on Sun | | AM PDT | | | | | 03/22/13 at 2100, Until | | | | | | | Discontinued | | | | | | + +---------+ +--------+---+---+ +---------+ +--------+---+---+ | New Bag | 03/22/20 | 400 mg | | | | | 13 9:43 | | | | | | PM PDT | | | | +---------+ +--------+---+---+ +---+---+ | | | +---+---+ + +-------+ +-------+---+---+ | citalopram (aka CELEXA) tablet | Given | 03/26/20 | 10 mg | | | | 10 mg 10 mg, oral, DAILY, First | | 13 10:02 | | | | | dose on Sat03/24/13 at 1100, | | AM PDT | | | | | Until Discontinued | | | | | | + +-------+ +-------+---+---+ +-------+ +-------+---+---+ | Given | 03/25/20 | 10 mg | | | | | 13 8:05 | | | | | | AM PDT | | | | +-------+ +-------+---+---+ +---+---+ | | | +---+---+ + +-------+ +-------+---+---+ | citalopram (CELEXA) tablet 20 | Given | 04/08/20 | 20 mg | | | | mg 20 mg, oral, DAILY, First | | 13 8:45 | | | | | dose on 03/28/13 at 1900, | | AM PDT | | | | | Until Discontinued | | | | | | + +-------+ +-------+---+---+ +-------+ +-------+---+---+ | Given | 04/07/20 | 20 mg | | | | | 13 8:56 | | | | | | AM PDT | | | | +-------+ +-------+---+---+ | Given | 04/06/20 | 20 mg | | | | | 13 9:15 | | | | | | AM PDT | | | | +-------+ +-------+---+---+ +---+---+ | | | +---+---+ + +-------+ +-------+---+---+ | citalopram (CELEXA) tablet 20 | Given | 04/11/20 | 20 mg | | | | mg 20 mg, feeding tube, DAILY, | | 13 9:08 | | | | | First dose (after last | | AM PDT | | | | | modification) on [place] 04/09/13 at | | | | | | | 0900, Until Discontinued | | | | | | + +-------+ +-------+---+---+ +-------+ +-------+---+---+ | Given | 04/10/20 | 20 mg | | | | | 13 9:10 | | | | | | AM PDT | | | | +-------+ +-------+---+---+ | Given | 04/09/20 | 20 mg | | | | | 13 8:39 | | | | | | AM PDT | | | | +-------+ +-------+---+---+ +---+---+ | | | +---+---+ + +---------+ + + +---+ | dextrose 5%-NaCl 0.45%-KCl 20 | New Bag | 03/25/20 | 50 mL/hr | 50 mL/hr | | | mEq/L IV infusion 50 mL/hr, | | 13 3:00 | | | | | intravenous, CONTINUOUS, Starting | | PM PDT | | | | | 03/25/13 at 1445, Until Wed | | | | | | | 03/25/13 at 2347 | | | | | | + +---------+ + + +---+ +---+---+ | | | +---+---+ + +-------+ +--------+---+---+ | docusate sodium (COLACE) | Given | 04/08/20 | 100 mg | | | | capsule 100 mg 100 mg, oral, | | 13 8:45 | | | | | TWICE DAILY, First dose on Wed | | AM PDT | | | | | 03/25/13 at 0900, Until | | | | | | | Discontinued | | | | | | + +-------+ +--------+---+---+ +-------+ +--------+---+---+ | Given | 04/07/20 | 100 mg | | | | | 13 10:09 | | | | | | PM PDT | | | | +-------+ +--------+---+---+ | Given | 04/07/20 | 100 mg | | | | | 13 8:56 | | | | | | AM PDT | | | | +-------+ +--------+---+---+ +---+---+ | | | +---+---+ + +-------+ +--------+---+---+ | docusate sodium liquid 100 mg | Given | 04/10/20 | 100 mg | | | | 100 mg, feeding tube, TWICE | | 13 9:10 | | | | | DAILY, First dose on Sat04/08/13 | | AM PDT | | | | | at 2100, Until Discontinued | | | | | | + +-------+ +--------+---+---+ +-------+ +--------+---+---+ | Given | 04/09/20 | 100 mg | | | | | 13 9:39 | | | | | | PM PDT | | | | +-------+ +--------+---+---+ | Given | 04/09/20 | 100 mg | | | | | 13 8:38 | | | | | | AM PDT | | | | +-------+ +--------+---+---+ +---+---+ | | | +---+---+ + +-------+ +-------+---+---+ | enoxaparin (aka LOVENOX) | Given | 04/04/20 | 30 mg | | | | injection 30 mg 30 mg, | | 13 9:24 | | | | | subcutaneous, EVERY EVENING, | | PM PDT | | | | | First dose on Sat03/24/13 at | | | | | | | 2100, Until Discontinued | | | | | | + +-------+ +-------+---+---+ +-------+ +-------+---+---+ | Given | 04/03/20 | 30 mg | | | | | 13 9:18 | | | | | | PM PDT | | | | +-------+ +-------+---+---+ | Given | 04/02/20 | 30 mg | | | | | 13 8:57 | | | | | | PM PDT | | | | +-------+ +-------+---+---+ +---+---+ | | | +---+---+ + +-------+ +-------+---+---+ | enoxaparin (LOVENOX) injection | Given | 04/10/20 | 40 mg | | | | 40 mg 40 mg, subcutaneous, EVERY | | 13 8:28 | | | | | EVENING, First dose (after last | | PM PDT | | | | | modification) on 04/05/13 at | | | | | | | 2100, Until Discontinued | | | | | | + +-------+ +-------+---+---+ +-------+ +-------+---+---+ | Given | 04/09/20 | 40 mg | | | | | 13 9:39 | | | | | | PM PDT | | | | +-------+ +-------+---+---+ | Given | 04/08/20 | 40 mg | | | | | 13 10:04 | | | | | | PM PDT | | | | +-------+ +-------+---+---+ +---+---+ | | | +---+---+ + +---------+ +-------+-------+---+ | famotidine in NS (aka PEPCID) | New Bag | 03/24/20 | 20 mg | 200 | | | IV 20 mg 20 mg, intravenous, | | 13 8:10 | | mL/hr | | | EVERY 12 HOURS, First dose on Sun | | AM PDT | | | | | 03/22/13 at 2100, Until | | | | | | | Discontinued | | | | | | + +---------+ +-------+-------+---+ +---------+ +-------+-------+---+ | New Bag | 03/23/20 | 20 mg | 200 | | | | 13 8:23 | | mL/hr | | | | PM PDT | | | | +---------+ +-------+-------+---+ | New Bag | 03/23/20 | 20 mg | 200 | | | | 13 9:29 | | mL/hr | | | | AM PDT | | | | +---------+ +-------+-------+---+ +---+---+ | | | +---+---+ + + + +--------+-------+---+ | fat emulsion IV infusion 250 | Rate/Dos | 03/31/20 | 250 mL | 9.5 | | | mL, intravenous, EVERY | e Verify | 13 7:37 | | mL/hr | | | (Once per day on Sat), | | PM PDT | | | | | First dose on Sat03/25/13 at | | | | | | | 2100, Until Discontinued | | | | | | + + + +--------+-------+---+ + + +--------+-------+---+ | Rate/Dose Verify | 03/31/20 | 250 mL | | | | | 13 7:44 | | | | | | AM PDT | | | | + + +--------+-------+---+ | New Bag | 03/30/20 | 250 mL | 9.5 | | | | 13 9:27 | | mL/hr | | | | PM PDT | | | | + + +--------+-------+---+ +---+---+ | | | +---+---+ + + + +--------+-------+---+ | fat emulsion IV infusion 250 | Rate/Dos | 04/02/20 | 250 mL | 10.4 | | | mL, intravenous, EVERY FR | e Verify | 13 7:30 | | mL/hr | | | (Once per day on Sat), | | AM PDT | | | | | First dose (after last reorder) | | | | | | | on Sat04/01/13 at 2100, Until | | | | | | | Discontinued | | | | | | + + + +--------+-------+---+ +---------+ +--------+---+---+ | New Bag | 04/01/20 | 250 mL | | | | | 13 8:47 | | | | | | PM PDT | | | | +---------+ +--------+---+---+ +---+---+ | | | +---+---+ + +---------+ +--------+---+---+ | fat emulsion IV infusion 250 | New Bag | 04/08/20 | 250 mL | | | | mL, intravenous, EVERY FR | | 13 9:45 | | | | | (Once per day on Sat), | | PM PDT | | | | | First dose on Sat04/06/13 at | | | | | | | 2100, Until Discontinued | | | | | | + +---------+ +--------+---+---+ +---------+ +--------+---+---+ | New Bag | 04/06/20 | 250 mL | | | | | 13 9:16 | | | | | | PM PDT | | | | +---------+ +--------+---+---+ +---+---+ | | | +---+---+ + +---------+ +--------+---+---+ | fat emulsion IV infusion 250 | New Bag | 04/05/20 | 250 mL | | | | mL, intravenous, TPN 2100, 1 | | 13 9:44 | | | | | dose, Starting 04/05/13 at | | PM PDT | | | | | 2100, Until 04/05/13 at 2144 | | | | | | + +---------+ +--------+---+---+ +---+---+ | | | +---+---+ + +---------+ +-------+---+---+ | furosemide (aka LASIX) | New Bag | 03/23/20 | 20 mg | | | | injection 20 mg 20 mg, | | 13 10:02 | | | | | intravenous, ONCE, 1 dose, Mon | | AM PDT | | | | | 03/23/13 at 1030 | | | | | | + +---------+ +-------+---+---+ +---+---+ | | | +---+---+ + +---------+ +-------+---+---+ | furosemide (LASIX) injection 10 | New Bag | 03/26/20 | 10 mg | | | | mg 10 mg, intravenous, ONCE, 1 | | 13 8:04 | | | | | dose, [facility] 03/26/13 at 0800 | | AM PDT | | | | + +---------+ +-------+---+---+ +---+---+ | | | +---+---+ + +---------+ +-------+---+---+ | furosemide (LASIX) injection 10 | New Bag | 03/26/20 | 10 mg | | | | mg 10 mg, intravenous, ONCE, | 6:21 | | | | | dose, [facility] 03/26/13 at 1815 | | PM PDT | | | | + +---------+ +-------+---+---+ +---+---+ | | | +---+---+ + +---------+ +-------+---+---+ | furosemide (LASIX) injection 20 | New Bag | 03/25/20 | 20 mg | | | | mg 20 mg, intravenous, ONCE, 9:06 | | | | | dose, [facility] 03/25/13 at 2115 | | PM PDT | | | | + +---------+ +-------+---+---+ +---+---+ | | | +---+---+ + +---------+ +-------+---+---+ | furosemide (LASIX) injection 20 | New Bag | 03/26/20 | 20 mg | | | | mg 20 mg, intravenous, ONCE, 10:41 | | | | | dose, [facility] 03/26/13 at 2300 | | PM PDT | | | | + +---------+ +-------+---+---+ +---+---+ | | | +---+---+ + +---------+ +-------+---+---+ | furosemide (LASIX) injection 20 | New Bag | 03/30/20 | 20 mg | | | | mg 20 mg, intravenous, ONCE, 2:40 | | | | | dose, [facility] 03/30/13 at 0315 | | AM PDT | | | | + +---------+ +-------+---+---+ +---+---+ | | | +---+---+ + +---------+ +-------+---+---+ | furosemide (LASIX) injection 20 | New Bag | 03/30/20 | 20 mg | | | | mg 20 mg, intravenous, ONCE, 9:48 | | | | | dose, [facility] 03/30/13 at 0945 | | AM PDT | | | | + +---------+ +-------+---+---+ + +---+ | | | + +---+ | furosemide (LASIX) injection 1 | | | dose, Starting Sat03/30/13 at | | | 0238, Until Sat03/30/13 at 0240 | | + +---+ | | | + +---+ + +---------+ +---------+-------+---+ | furosemide 2 mg/mL in NaCl 0.9 | New Bag | 03/30/20 | 1 mg/hr | 0.5 | | | % IV infusion 1-10 mg/hr | | 13 12:58 | | mL/hr | | | (rounded to 0.5-5 mL/hr), | | PM PDT | | | | | intravenous, CONTINUOUS, Starting | | | | | | | 03/30/13 at 1145, Until Tue | | | | | | | 03/31/13 at 0655 | | | | | | + +---------+ +---------+-------+---+ +---+---+ | | | +---+---+ + + + +---------+-------+---+ | furosemide 2 mg/mL in NaCl 0.9 | Rate/Dos | 03/31/20 | 1 mg/hr | 0.5 | | | % IV infusion 1-10 mg/hr | e Change | 13 12:35 | | mL/hr | | | (rounded to 0.5-5 mL/hr), | | PM PDT | | | | | intravenous, CONTINUOUS, Starting | | | | | | | 03/31/13 at 0700, Until Tue | | | | | | | 03/31/13 at 1741 | | | | | | + + + +---------+-------+---+ + + +---------+---------+---+ | Rate/Dose Change | 03/31/20 | 4 mg/hr | 2 mL/hr | | | | 13 9:06 | | | | | | AM PDT | | | | + + +---------+---------+---+ | New Bag | 03/31/20 | 5 mg/hr | 2.5 | | | | 13 8:23 | | mL/hr | | | | AM PDT | | | | + + +---------+---------+---+ +---+---+ | | | +---+---+ + +---------+ +-------+---+---+ | gadodiamide (OMNISCAN) IV 20 mL | New Bag | 04/04/20 | 20 mL | | | | 20 mL, intravenous, PROCEDURE | | 13 8:39 | | | | | ONCE, 1 dose, 04/04/13 at 2045 | | PM PDT | | | | + +---------+ +-------+---+---+ +---+---+ | | | +---+---+ + +---------+ +--------+---+---+ | haloperidol lactate (aka | New Bag | 03/24/20 | 2.5 mg | | | | HALDOL) injection 2.5 mg 2.5 mg, | | 13 2:00 | | | | | intravenous, NEEDED, 2 doses, | | AM PDT | | | | | Starting 03/24/13 at 0117, | | | | | | | Until 03/24/13 at 0200, | | | | | | | agitation | | | | | | + +---------+ +--------+---+---+ +---------+ +--------+---+---+ | New Bag | 03/24/20 | 2.5 mg | | | | | 13 1:23 | | | | | | AM PDT | | | | +---------+ +--------+---+---+ + +---+ | | | + +---+ | haloperidol lactate (aka | | | HALDOL) injection 1 dose, | | | Starting 03/24/13 at 0119, | | | Until 03/24/13 at 0123 | | + +---+ | | | + +---+ + +---------+ +--------+---+---+ | haloperidol lactate (HALDOL) | New Bag | 03/30/20 | 0.5 mg | | | | injection 0.5 mg 0.5 mg, | | 13 11:52 | | | | | intravenous, EVERY 6 HOURS | | AM PDT | | | | | NEEDED, Starting Sat03/27/13 at | | | | | | | 1217, Until Sat03/30/13 at 1311, | | | | | | | agitation | | | | | | + +---------+ +--------+---+---+ +---+---+ | | | +---+---+ + +---------+ +------+---+---+ | haloperidol lactate (HALDOL) | | 04/02/20 | 1 mg | | | | injection 0.5-2 mg 0.5-2 mg, | | 13 6:49 | | | | | intravenous, EVERY 6 HOURS | | AM PDT | | | | | NEEDED, Starting Sat03/30/13 at | | | | | | | 1310, Until [place] 04/02/13 at 0757, | | | | | | | agitation, nausea/vomiting | | | | | | + +---------+ +------+---+---+ +---------+ +--------+---+---+ | New Bag | 03/31/20 | 0.5 mg | | | | | 13 6:49 | | | | | | PM PDT | | | | +---------+ +--------+---+---+ | New Bag | 03/31/20 | 0.5 mg | | | | | 13 11:09 | | | | | | AM PDT | | | | +---------+ +--------+---+---+ +---+---+ | | | +---+---+ + +---------+ +-------+---+---+ | heparin 10 unit/mL IV flush | New Bag | 04/10/20 | 150 | | | | syringe 50 Units 50 Units, | | 13 3:59 | Units | | | | intravenous, NEEDED, Starting | | AM PDT | | | | | 03/25/13 at 0334, Until Sat | | | | | | | 04/11/13 at 1635, line patency, | | | | | | | per protocol | | | | | | + +---------+ +-------+---+---+ +---------+ + +---+---+ | New Bag | 04/09/20 | 50 Units | | | | | 13 8:39 | | | | | | AM PDT | | | | +---------+ + +---+---+ | New Bag | 04/08/20 | 50 Units | | | | | 13 8:59 | | | | | | AM PDT | | | | +---------+ + +---+---+ +---+---+ | | | +---+---+ + +-------+ +---+---+---+ | hydrocortisone 1 % cream | Given | 04/10/20 | | | | | topical, TWICE DAILY, First dose | | 13 8:34 | | | | | on 03/23/13 at 1315, Until | | PM PDT | | | | | Discontinued | | | | | | + +-------+ +---+---+---+ +-------+ +---+---+---+ | Given | 04/10/20 | | | | | | 13 9:09 | | | | | | AM PDT | | | | +-------+ +---+---+---+ | Given | 04/09/20 | | | | | | 13 9:51 | | | | | | PM PDT | | | | +-------+ +---+---+---+ +---+---+ | | | +---+---+ + +---------+ +--------+---+---+ | HYDROmorphone (aka DILAUDID) | New Bag | 03/29/20 | 0.2 mg | | | | injection 0.2-0.6 mg 0.2-0.6 mg, | | 13 4:29 | | | | | intravenous, EVERY 2 HOURS | | PM PDT | | | | | NEEDED, Starting [place] 03/22/13 at | | | | | | | 1736, Until [facility] 04/02/13 at 0757, | | | | | | | moderate pain | | | | | | + +---------+ +--------+---+---+ +---------+ +--------+---+---+ | New Bag | 03/29/20 | 0.2 mg | | | | | 13 4:45 | | | | | | AM PDT | | | | +---------+ +--------+---+---+ | New Bag | 03/28/20 | 0.2 mg | | | | | 13 11:38 | | | | | | PM PDT | | | | +---------+ +--------+---+---+ +---+---+ | | | +---+---+ + +-------+ +---------+---+---+ | insulin lispro (HUMALOG) | Given | 03/25/20 | 2 Units | | | | injection subcutaneous, WITH | | 13 10:57 | | | | | MEALS AND BEDTIME, First dose on | | PM PDT | | | | | 03/25/13 at 1300, Until | | | | | | | Discontinued | | | | | | + +-------+ +---------+---+---+ +-------+ +---------+---+---+ | Given | 03/25/20 | 2 Units | | | | | 13 5:34 | | | | | | PM PDT | | | | +-------+ +---------+---+---+ | Given | 03/25/20 | 2 Units | | | | | 13 1:55 | | | | | | PM PDT | | | | +-------+ +---------+---+---+ +---+---+ | | | +---+---+ + +-------+ +---------+---+---+ | insulin lispro (HUMALOG) | Given | 03/26/20 | 4 Units | | | | injection subcutaneous, WITH | | 13 6:38 | | | | | MEALS AND BEDTIME, First dose on | | AM PDT | | | | | [facility] 03/26/13 at 0000, Until | | | | | | | Discontinued | | | | | | + +-------+ +---------+---+---+ +---+---+ | | | +---+---+ + +-------+ +---------+---+---+ | insulin lispro (HUMALOG) | Given | 04/10/20 | 2 Units | | | | injection subcutaneous, EVERY 6 | | 13 12:57 | | | | | HOURS, First dose (after last | | PM PDT | | | | | modification) on [facility] 03/26/13 at | | | | | | | 1200, Until Discontinued | | | | | | + +-------+ +---------+---+---+ +-------+ +---------+---+---+ | Given | 04/10/20 | 2 Units | | | | | 13 12:30 | | | | | | AM PDT | | | | +-------+ +---------+---+---+ | Given | 04/09/20 | 2 Units | | | | | 13 12:43 | | | | | | PM PDT | | | | +-------+ +---------+---+---+ +---+---+ | | | +---+---+ + +---------+ +--------+---+---+ | iohexol (OMNIPAQUE) injection | New Bag | 03/29/20 | 150 mL | | | | 150 mL 150 mL, intravenous, | | 13 2:04 | | | | | PROCEDURE ONCE, 1 dose, Sun | | PM PDT | | | | | 03/29/13 at 1415 | | | | | | + +---------+ +--------+---+---+ +---+---+ | | | +---+---+ + +---------+ +-------+-------+---+ | lactated ringers IV 150 mL/hr, | New Bag | 03/22/20 | 150 | 150 | | | intravenous, CONTINUOUS, | | 13 5:30 | mL/hr | mL/hr | | | Starting 03/22/13 at 1745, | | PM PDT | | | | | Until [place] 03/22/13 at 2245 | | | | | | + +---------+ +-------+-------+---+ +---+---+ | | | +---+---+ + + + +-------+-------+---+ | lactated ringers IV 125 mL/hr, | Rate/Dos | 03/22/20 | 125 | 125 | | | intravenous, CONTINUOUS, | e Change | 13 11:03 | mL/hr | mL/hr | | | Starting [place] 03/22/13 at 2300, | | PM PDT | | | | | Until [facility] 03/23/13 at 0924 | | | | | | + + + +-------+-------+---+ +---+---+ | | | +---+---+ + + + + + +---+ | lactated ringers IV 50 mL/hr, | Rate/Dos | 03/23/20 | 50 mL/hr | 50 mL/hr | | | intravenous, CONTINUOUS, Starting | e Change | 13 9:00 | | | | | 03/23/13 at 0930, Until Mon | | AM PDT | | | | | 03/23/13 at 0951 | | | | | | + + + + + +---+ +---+---+ | | | +---+---+ + + + + + +---+ | lactated ringers IV 10 mL/hr, | Rate/Dos | 03/23/20 | 10 mL/hr | 10 mL/hr | | | intravenous, CONTINUOUS, Starting | e Change | 13 10:00 | | | | | 03/23/13 at 1000, Until Wed | | AM PDT | | | | | 03/25/13 at 2347 | | | | | | + + + + + +---+ +---+---+ | | | +---+---+ + +---------+ +--------+---+---+ | lactated ringers IV 500 mL, | New Bag | 03/28/20 | 500 mL | | | | intravenous, ONCE, 1 dose, Sat | | 13 6:21 | | | | | 03/28/13 at 1830 | | PM PDT | | | | + +---------+ +--------+---+---+ +---+---+ | | | +---+---+ + +---------+ + +---+---+ | lactated ringers IV 500 mL, | New Bag | 03/28/20 | 1,000 mL | | | | intravenous, ONCE, 1 dose, Sat | | 13 7:45 | | | | | 03/28/13 at 2030 | | PM PDT | | | | + +---------+ + +---+---+ +---+---+ | | | +---+---+ + +---------+ +--------+---+---+ | lactated ringers IV 250 mL, | New Bag | 08/20/20 | 250 mL | | | | intravenous, ONCE, 1 dose, Tue | | 13 8:02 | | | | | 03/31/13 at 2030 | | PM PDT | | | | + +---------+ +--------+---+---+ +---+---+ | | | +---+---+ + +---------+ +--------+---+---+ | lactated ringers IV 500 mL, | New Bag | 03/31/20 | 500 mL | | | | intravenous, ONCE, 1 dose, Tue | | 13 10:19 | | | | | 03/31/13 at 2245 | | PM PDT | | | | + +---------+ +--------+---+---+ +---+---+ | | | +---+---+ + +---------+ +--------+---+---+ | lactated ringers IV 250 mL, | New Bag | 03/31/20 | 250 mL | | | | intravenous, ONCE, 1 dose, Tue | | 13 11:45 | | | | | 8/20/13 at 2330 | | PM PDT | | | | + +---------+ +--------+---+---+ +---+---+ | | | +---+---+ + +---------+ +--------+---+---+ | lactated ringers IV 250 mL, | New Bag | 04/01/20 | 250 mL | | | | intravenous, ONCE, 1 dose, Wed | | 13 12:00 | | | | | 04/01/13 at 0015 | | AM PDT | | | | + +---------+ +--------+---+---+ +---+---+ | | | +---+---+ + +---------+ +--------+---+---+ | lactated ringers IV 500 mL, | New Bag | 04/06/20 | 500 mL | | | | intravenous, ONCE, 1 dose, Mon | | 13 10:49 | | | | | 04/06/13 at 1045 | | AM PDT | | | | + +---------+ +--------+---+---+ +---+---+ | | | +---+---+ + +---------+ +--------+---+---+ | lactated ringers IV 500 mL, | New Bag | 04/08/20 | 500 mL | | | | intravenous, ONCE, 1 dose, Sat | | 13 3:06 | | | | | 04/08/13 at 1415 | | PM PDT | | | | + +---------+ +--------+---+---+ +---+---+ | | | +---+---+ + +-------+ + +---+---+ | lactobacillus acidophilus | Given | 03/26/20 | 1 packet | | | | (LACTINEX) packet 1 Packet 1 | | 13 10:02 | | | | | packet, oral, FOUR TIMES DAILY, | | AM PDT | | | | | First dose on Sat03/25/13 at | | | | | | | 0900, Until Discontinued | | | | | | + +-------+ + +---+---+ +---+---+ | | | +---+---+ + +-------+ +---------+---+---+ | lactobacillus rhamnosus (GG) | Given | 03/26/20 | 1 | | | | (CULTURELLE) 15 billion cell | | 13 3:35 | capsule | | | | capsule 1 Cap 1 capsule, oral, | | PM PDT | | | | | DAILY, First dose on [facility] 03/26/13 | | | | | | | at 1545, Until Discontinued | | | | | | + +-------+ +---------+---+---+ +---+---+ | | | +---+---+ + +-------+ +---------+---+---+ | lactobacillus rhamnosus (GG) | Given | 04/11/20 | 1 | | | | (CULTURELLE) 15 billion cell | | 13 9:08 | capsule | | | | capsule 1 Cap 1 capsule, feeding | | AM PDT | | | | | tube, DAILY, First dose (after | | | | | | | last modification) on [place] 03/29/13 | | | | | | | at 0900, Until Discontinued | | | | | | + +-------+ +---------+---+---+ +-------+ +---------+---+---+ | Given | 04/10/20 | 1 | | | | | 13 9:10 | capsule | | | | | AM PDT | | | | +-------+ +---------+---+---+ | Given | 04/09/20 | 1 | | | | | 13 8:38 | capsule | | | | | AM PDT | | | | +-------+ +---------+---+---+ +---+---+ | | | +---+---+ + +---------+ +--------+---+---+ | levofloxacin (aka LEVAQUIN) IV | New Bag | 03/24/20 | 500 mg | | | | 500 mg 500 mg, intravenous, | | 13 10:33 | | | | | EVERY 24 HOURS, First dose on Mon | | PM PDT | | | | | 03/23/13 at 2100, Until | | | | | | | Discontinued | | | | | | + +---------+ +--------+---+---+ +---------+ +--------+---+---+ | New Bag | 03/23/20 | 500 mg | | | | | 13 8:20 | | | | | | PM PDT | | | | +---------+ +--------+---+---+ +---+---+ | | | +---+---+ + +-------+ +---------+---+---+ | levothyroxine tablet 125 mcg | Given | 03/27/20 | 125 mcg | | | | 125 mcg, oral, BEFORE BREAKFAST, | | 13 6:02 | | | | | First dose on Sat03/25/13 at | | AM PDT | | | | | 0700, Until Discontinued | | | | | | + +-------+ +---------+---+---+ +-------+ +---------+---+---+ | Given | 03/25/20 | 125 mcg | | | | | 13 6:53 | | | | | | AM PDT | | | | +-------+ +---------+---+---+ +---+---+ | | | +---+---+ + +-------+ +---------+---+---+ | levothyroxine tablet 125 mcg | Given | 04/08/20 | 125 mcg | | | | 125 mcg, oral, DAILY, First dose | | 13 8:45 | | | | | on 03/29/13 at 0700, Until | | AM PDT | | | | | Discontinued | | | | | | + +-------+ +---------+---+---+ +-------+ +---------+---+---+ | Given | 04/07/20 | 125 mcg | | | | | 13 5:57 | | | | | | AM PDT | | | | +-------+ +---------+---+---+ | Given | 04/06/20 | 125 mcg | | | | | 13 6:43 | | | | | | AM PDT | | | | +-------+ +---------+---+---+ +---+---+ | | | +---+---+ + +-------+ +---------+---+---+ | levothyroxine tablet 125 mcg | Given | 04/11/20 | 125 mcg | | | | 125 mcg, feeding tube, DAILY, | | 13 8:32 | | | | | First dose (after last | | AM PDT | | | | | modification) on Sat04/09/13 at | | | | | | | 0700, Until Discontinued | | | | | | + +-------+ +---------+---+---+ +-------+ +---------+---+---+ | Given | 04/10/20 | 125 mcg | | | | | 13 9:10 | | | | | | AM PDT | | | | +-------+ +---------+---+---+ | Given | 04/09/20 | 125 mcg | | | | | 13 6:44 | | | | | | AM PDT | | | | +-------+ +---------+---+---+ +---+---+ | | | +---+---+ + +-------+ +------+---+---+ | lisinopril (PRINIVIL) tablet 5 | Given | 04/08/20 | 5 mg | | | | mg 5 mg, oral, DAILY, First dose | | 13 8:45 | | | | | on Sat03/31/13 at 0900, Until | | AM PDT | | | | | Discontinued | | | | | | + +-------+ +------+---+---+ +-------+ +------+---+---+ | Given | 04/07/20 | 5 mg | | | | | 13 8:57 | | | | | | AM PDT | | | | +-------+ +------+---+---+ | Given | 04/04/20 | 5 mg | | | | | 13 9:02 | | | | | | AM PDT | | | | +-------+ +------+---+---+ +---+---+ | | | +---+---+ + +-------+ +------+---+---+ | lisinopril (PRINIVIL) tablet 5 | Given | 04/11/20 | 5 mg | | | | mg 5 mg, feeding tube, DAILY, | | 13 9:08 | | | | | First dose (after last | | AM PDT | | | | | modification) on [facility] 04/09/13 at | | | | | | | 0900, Until Discontinued | | | | | | + +-------+ +------+---+---+ +-------+ +------+---+---+ | Given | 04/10/20 | 5 mg | | | | | 13 9:10 | | | | | | AM PDT | | | | +-------+ +------+---+---+ | Given | 04/09/20 | 5 mg | | | | | 13 8:39 | | | | | | AM PDT | | | | +-------+ +------+---+---+ +---+---+ | | | +---+---+ + +---------+ +--------+---+---+ | LORazepam (ATIVAN) injection | New Bag | 03/23/20 | 0.5 mg | | | | 0.5 mg 0.5 mg, intravenous, | | 13 10:20 | | | | | ONCE, 1 dose, Sat03/23/13 at 2300 | | PM PDT | | | | + +---------+ +--------+---+---+ +---+---+ | | | +---+---+ + +---------+ +--------+---+---+ | LORazepam (ATIVAN) injection | New Bag | 03/23/20 | 0.5 mg | | | | 0.5 mg 0.5 mg, intravenous, | | 13 11:20 | | | | | ONCE, 1 dose, Sat03/23/13 at 2315 | | PM PDT | | | | + +---------+ +--------+---+---+ + +---+ | | | + +---+ | LORazepam (ATIVAN) injection 1 | | | dose, Starting Sat03/23/13 at | | | 2217, Until Sat03/23/13 at 2220 | | + +---+ | | | + +---+ + +---------+ +-----+---+---+ | magnesium sulfate IV 4 g 4 g, | New Bag | 03/25/20 | 4 g | | | | intravenous, ONCE, 1 dose, Wed | | 13 10:32 | | | | | 03/25/13 at 1000 | | AM PDT | | | | + +---------+ +-----+---+---+ +---+---+ | | | +---+---+ + +-------+ +---+---+---+ | menthol-zinc oxide (CALAZIME) | Given | 04/06/20 | | | | | topical paste topical, TWICE | | 13 9:09 | | | | | DAILY NEEDED, Starting [facility] | | AM PDT | | | | | 03/26/13 at 0817, Until Sat | | | | | | | 04/11/13 at 1635, skin | | | | | | | irritation/breakdown | | | | | | + +-------+ +---+---+---+ +-------+ +---+---+---+ | Given | 03/30/20 | | | | | | 13 9:00 | | | | | | AM PDT | | | | +-------+ +---+---+---+ | Given | 03/28/20 | | | | | | 13 8:32 | | | | | | AM PDT | | | | +-------+ +---+---+---+ +---+---+ | | | +---+---+ + +---------+ +------+---+---+ | metoclopramide HCl (REGLAN) | New Bag | 03/31/20 | 5 mg | | | | injection 5 mg 5 mg, | | 13 12:37 | | | | | intravenous, ONCE, 1 dose, Tue | | PM PDT | | | | | 03/31/13 at 1200 | | | | | | + +---------+ +------+---+---+ +---+---+ | | | +---+---+ + +-------+ +-------+---+---+ | metoprolol tartrate (LOPRESSOR) | Given | 03/27/20 | 25 mg | | | | tablet 25 mg 25 mg, oral, TWICE | | 13 9:15 | | | | | DAILY, First dose on Sat03/25/13 | | PM PDT | | | | | at 0900, Until Discontinued | | | | | | + +-------+ +-------+---+---+ +-------+ +-------+---+---+ | Given | 03/26/20 | 25 mg | | | | | 13 8:50 | | | | | | PM PDT | | | | +-------+ +-------+---+---+ | Given | 03/26/20 | 25 mg | | | | | 13 10:02 | | | | | | AM PDT | | | | +-------+ +-------+---+---+ +---+---+ | | | +---+---+ + +---------+ +--------+---+---+ | metroNIDAZOLE (aka FLAGYL) IV | New Bag | 03/25/20 | 500 mg | | | | 500 mg 500 mg, intravenous, | | 13 3:23 | | | | | EVERY 8 HOURS, First dose (after | | AM PDT | | | | | last reorder) on 03/22/13 at | | | | | | | 2000, Until Discontinued | | | | | | + +---------+ +--------+---+---+ +---------+ +--------+---+---+ | New Bag | 03/24/20 | 500 mg | | | | | 13 8:46 | | | | | | PM PDT | | | | +---------+ +--------+---+---+ | New Bag | 03/24/20 | 500 mg | | | | | 13 12:49 | | | | | | PM PDT | | | | +---------+ +--------+---+---+ +---+---+ | | | +---+---+ + +-------+ +---------+---+---+ | multivitamin 1 Cap 1 capsule, | Given | 04/08/20 | 1 | | | | oral, DAILY, First dose on [facility] | | 13 8:45 | capsule | | | | 04/02/13 at 1500, Until | | AM PDT | | | | | Discontinued | | | | | | + +-------+ +---------+---+---+ +-------+ +---------+---+---+ | Given | 04/07/20 | 1 | | | | | 13 8:57 | capsule | | | | | AM PDT | | | | +-------+ +---------+---+---+ | Given | 04/06/20 | 1 | | | | | 13 9:15 | capsule | | | | | AM PDT | | | | +-------+ +---------+---+---+ +---+---+ | | | +---+---+ + +-------+ + +---+---+ | multivitamin-minerals 1 tablet | Given | 04/11/20 | 1 tablet | | | | 1 tablet, feeding tube, DAILY, | | 13 9:08 | | | | | First dose on [facility] 04/09/13 at | | AM PDT | | | | | 0900, Until Discontinued | | | | | | + +-------+ + +---+---+ +-------+ + +---+---+ | Given | 04/10/20 | 1 tablet | | | | | 13 9:10 | | | | | | AM PDT | | | | +-------+ + +---+---+ | Given | 04/09/20 | 1 tablet | | | | | 13 8:38 | | | | | | AM PDT | | | | +-------+ + +---+---+ +---+---+ | | | +---+---+ + +-------+ +--------+---+---+ | nitroglycerin (NITROSTAT) | Given | 03/30/20 | 0.4 mg | | | | tablet 0.4 mg 0.4 mg, | | 13 4:16 | | | | | sublingual, EVERY 5 MINUTES | | PM PDT | | | | | NEEDED, Starting 03/30/13 at | | | | | | | 1318, Until 04/01/13 at 1133, | | | | | | | chest pain | | | | | | + +-------+ +--------+---+---+ +---+---+ | | | +---+---+ + + + + +-------+---+ | norepinephrine in NaCl 0.9% IV | Rate/Dos | 03/23/20 | 0.02 | 2.81 | | | infusion 8 mg/250 mL (0.032 | e Change | 13 5:00 | mcg/kg/m | mL/hr | | | mg/mL) 0.02-2 mcg/kg/min | | AM PDT | in | | | | 75 kg Order-specific weight | | | | | | | (rounded to 2.81-281.25 mL/hr), | | | | | | | intravenous, CONTINUOUS, Starting | | | | | | | 03/22/13 at 1745, Until Sat | | | | | | | 03/23/13 at 0951 | | | | | | + + + + +-------+---+ + + + +-------+---+ | Rate/Dose Change | 03/23/20 | 0.04 | 5.63 | | | | 13 4:00 | mcg/kg/m | mL/hr | | | | AM PDT | in | | | + + + +-------+---+ | Rate/Dose Change | 03/23/20 | 0.03 | 4.22 | | | | 13 3:00 | mcg/kg/m | mL/hr | | | | AM PDT | in | | | + + + +-------+---+ +---+---+ | | | +---+---+ + +-------+ +---+---+---+ | nystatin (MYCOSTATIN) cream | Given | 04/04/20 | | | | | topical, TWICE DAILY, First dose | | 13 9:03 | | | | | on [facility] 04/02/13 at 1245, Until | | AM PDT | | | | | Discontinued | | | | | | + +-------+ +---+---+---+ +-------+ +---+---+---+ | Given | 04/03/20 | | | | | | 13 8:19 | | | | | | PM PDT | | | | +-------+ +---+---+---+ | Given | 04/03/20 | | | | | | 13 10:38 | | | | | | AM PDT | | | | +-------+ +---+---+---+ +---+---+ | | | +---+---+ + +-------+ +---+---+---+ | nystatin (MYCOSTATIN) powder | Given | 04/11/20 | | | | | topical, TWICE DAILY, First dose | | 13 8:35 | | | | | on 04/04/13 at 2100, Until | | AM PDT | | | | | Discontinued | | | | | | + +-------+ +---+---+---+ +-------+ +---+---+---+ | Given | 04/10/20 | | | | | | 13 8:34 | | | | | | PM PDT | | | | +-------+ +---+---+---+ | Given | 04/10/20 | | | | | | 13 9:10 | | | | | | AM PDT | | | | +-------+ +---+---+---+ +---+---+ | | | +---+---+ + +-------+ + +---+---+ | nystatin (MYCOSTATIN) | Given | 04/04/20 | 500,000 | | | | suspension 500,000 Units 500,000 | | 13 4:10 | Units | | | | Units, oral, FOUR TIMES DAILY, | | PM PDT | | | | | First dose on Sat04/03/13 at | | | | | | | 1515, Until Discontinued | | | | | | + +-------+ + +---+---+ +-------+ + +---+---+ | Given | 04/03/20 | 500,000 | | | | | 13 9:18 | Units | | | | | PM PDT | | | | +-------+ + +---+---+ | Given | 04/03/20 | 500,000 | | | | | 13 7:05 | Units | | | | | PM PDT | | | | +-------+ + +---+---+ +---+---+ | | | +---+---+ + +-------+ + +---+---+ | nystatin (MYCOSTATIN) | Given | 04/09/20 | 500,000 | | | | suspension 500,000 Units 500,000 | | 13 10:10 | Units | | | | Units, oral, FOUR TIMES DAILY, | | PM PDT | | | | | First dose on Sat04/07/13 at | | | | | | | 1800, Until Discontinued | | | | | | + +-------+ + +---+---+ +-------+ + +---+---+ | Given | 04/09/20 | 500,000 | | | | | 13 3:00 | Units | | | | | PM PDT | | | | +-------+ + +---+---+ | Given | 04/09/20 | 500,000 | | | | | 13 8:38 | Units | | | | | AM PDT | | | | +-------+ + +---+---+ +---+---+ | | | +---+---+ + +-------+ +-------+---+---+ | omeprazole (PRILOSEC) capsule | Given | 08/15/20 | 20 mg | | | | 20 mg 20 mg, oral, DAILY, First | | 13 3:35 | | | | | dose on Sat03/26/13 at 1545, | | PM PDT | | | | | Until Discontinued | | | | | | + +-------+ +-------+---+---+ +---+---+ | | | +---+---+ + +-------+ +-------+---+---+ | omeprazole (PRILOSEC) capsule | Given | 04/08/20 | 20 mg | | | | 20 mg 20 mg, oral, DAILY, First | | 13 8:45 | | | | | dose on Sat04/02/13 at 1500, | | AM PDT | | | | | Until Discontinued | | | | | | + +-------+ +-------+---+---+ +-------+ +-------+---+---+ | Given | 04/07/20 | 20 mg | | | | | 13 8:57 | | | | | | AM PDT | | | | +-------+ +-------+---+---+ | Given | 04/06/20 | 20 mg | | | | | 13 9:15 | | | | | | AM PDT | | | | +-------+ +-------+---+---+ +---+---+ | | | +---+---+ + +-------+ +-------+---+---+ | omeprazole (PRILOSEC) oral | Given | 04/11/20 | 20 mg | | | | suspension (compound) 20 mg 20 | | 13 9:08 | | | | | mg, feeding tube, DAILY, First | | AM PDT | | | | | dose on Sat04/08/13 at 1130, | | | | | | | Until Discontinued | | | | | | + +-------+ +-------+---+---+ +-------+ +-------+---+---+ | Given | 04/10/20 | 20 mg | | | | | 13 9:10 | | | | | | AM PDT | | | | +-------+ +-------+---+---+ | Given | 04/09/20 | 20 mg | | | | | 13 1:38 | | | | | | PM PDT | | | | +-------+ +-------+---+---+ +---+---+ | | | +---+---+ + +-------+ +-------+---+---+ | omeprazole (PRILOSEC) oral | Given | 03/29/20 | 20 mg | | | | suspension 20 mg 20 mg, oral, | | 13 8:20 | | | | | DAILY, First dose on Sat03/28/13 | | AM PDT | | | | | at 1745, Until Discontinued | | | | | | + +-------+ +-------+---+---+ +-------+ +-------+---+---+ | Given | 03/28/20 | 20 mg | | | | | 13 9:07 | | | | | | PM PDT | | | | +-------+ +-------+---+---+ +---+---+ | | | +---+---+ + +---------+ +------+---+---+ | ondansetron (aka ZOFRAN) | New Bag | 04/02/20 | 4 mg | | | | injection 4 mg 4 mg, | | 13 3:54 | | | | | intravenous, EVERY 12 HOURS | | PM PDT | | | | | NEEDED, Starting 03/22/13 at | | | | | | | 1736, Until Sat04/10/13 at 0923, | | | | | | | nausea/vomiting | | | | | | + +---------+ +------+---+---+ +---------+ +------+---+---+ | New Bag | 03/30/20 | 4 mg | | | | | 13 9:27 | | | | | | AM PDT | | | | +---------+ +------+---+---+ | New Bag | 03/29/20 | 4 mg | | | | | 13 10:24 | | | | | | AM PDT | | | | +---------+ +------+---+---+ +---+---+ | | | +---+---+ + +---------+ +-------+---+---+ | piperacillin-tazobactam (ZOSYN) | New Bag | 03/26/20 | 4.5 g | | | | IV (minibag+) 4.5 g 4.5 g, | | 13 8:14 | | | | | intravenous, ONCE, 1 dose, [facility] | | PM PDT | | | | | 03/26/13 at 1815 | | | | | | + +---------+ +-------+---+---+ +---+---+ | | | +---+---+ + +---------+ +---------+---+---+ | piperacillin-tazobactam (ZOSYN) | New Bag | 03/30/20 | 3.375 g | | | | IV 3.375 g 3.375 g, | | 13 9:32 | | | | | intravenous, EVERY 8 HOURS, First | | AM PDT | | | | | dose on Sat03/27/13 at 0015, | | | | | | | Until Discontinued | | | | | | + +---------+ +---------+---+---+ +---------+ +---------+---+---+ | New Bag | 03/29/20 | 3.375 g | | | | | 13 11:46 | | | | | | PM PDT | | | | +---------+ +---------+---+---+ | New Bag | 03/29/20 | 3.375 g | | | | | 13 5:10 | | | | | | PM PDT | | | | +---------+ +---------+---+---+ +---+---+ | | | +---+---+ + +---------+ +---------+---+---+ | piperacillin-tazobactam (ZOSYN) | New Bag | 03/31/20 | 3.375 g | | | | IV 3.375 g 3.375 g, | | 13 10:21 | | | | | intravenous, EVERY 8 HOURS, 3 | | AM PDT | | | | | doses, First dose (after last | | | | | | | modification) on Sat03/30/13 at | | | | | | | 1600, Last dose on Sat03/31/13 at | | | | | | | 0800 | | | | | | + +---------+ +---------+---+---+ +---------+ +---------+---+---+ | New Bag | 03/31/20 | 3.375 g | | | | | 13 12:30 | | | | | | AM PDT | | | | +---------+ +---------+---+---+ | New Bag | 03/30/20 | 3.375 g | | | | | 13 4:19 | | | | | | PM PDT | | | | +---------+ +---------+---+---+ +---+---+ | | | +---+---+ + +-------+ +------+---+---+ | polyethylene glycol (MIRALAX) | Given | 04/08/20 | 17 g | | | | powder 17 g 17 g, oral, DAILY, | | 13 8:45 | | | | | First dose on Sat04/07/13 at | | AM PDT | | | | | 0900, Until Discontinued | | | | | | + +-------+ +------+---+---+ +-------+ +------+---+---+ | Given | 04/07/20 | 17 g | | | | | 13 8:57 | | | | | | AM PDT | | | | +-------+ +------+---+---+ +---+---+ | | | +---+---+ + +-------+ +------+---+---+ | polyethylene glycol (MIRALAX) | Given | 04/09/20 | 17 g | | | | powder 17 g 17 g, feeding tube, | | 13 8:39 | | | | | DAILY, First dose (after last | | AM PDT | | | | | modification) on [facility] 04/09/13 at | | | | | | | 0900, Until Discontinued | | | | | | + +-------+ +------+---+---+ +---+---+ | | | +---+---+ + +-------+ +------+---+---+ | polyethylene glycol (MIRALAX) | Given | 04/10/20 | 17 g | | | | powder 17 g 17 g, feeding tube, | | 13 9:10 | | | | | DAILY, First dose (after last | | AM PDT | | | | | modification) on Sat04/10/13 at | | | | | | | 0900, Until Discontinued | | | | | | + +-------+ +------+---+---+ +---+---+ | | | +---+---+ + +-------+ + +---+---+ | potassium & sodium phosphates | Given | 03/26/20 | 1 packet | | | | (NEUTRA-PHOS, PHOS-NAK) | | 13 8:50 | | | | | 280-160-250 mg packet 1 Packet 1 | | PM PDT | | | | | packet, oral, TWICE DAILY, First | | | | | | | dose on Sat03/25/13 at 2100, | | | | | | | Until Discontinued | | | | | | + +-------+ + +---+---+ +-------+ + +---+---+ | Given | 03/26/20 | 1 packet | | | | | 13 10:02 | | | | | | AM PDT | | | | +-------+ + +---+---+ +---+---+ | | | +---+---+ + +-------+ + +---+---+ | potassium & sodium phosphates | Given | 04/10/20 | 1 packet | | | | (NEUTRA-PHOS, PHOS-NAK) | | 13 9:10 | | | | | 280-160-250 mg packet 1 packet 1 | | AM PDT | | | | | packet, feeding tube, ONCE, 1 | | | | | | | dose, 04/10/13 at 0845 | | | | | | + +-------+ + +---+---+ +---+---+ | | | +---+---+ + +---------+ +--------+---+---+ | potassium chloride IV 20 mEq | New Bag | 03/24/20 | 20 mEq | | | | 20 mEq, intravenous, ONCE, | | 13 9:22 | | | | | dose, [place] 03/24/13 at 0845 | | AM PDT | | | | + +---------+ +--------+---+---+ +---+---+ | | | +---+---+ + +---------+ +--------+---+---+ | potassium chloride IV 40 mEq | New Bag | 03/25/20 | 40 mEq | | | | 40 mEq, intravenous, ONCE, 10:32 | | | | | dose, [facility] 03/25/13 at 1000 | | AM PDT | | | | + +---------+ +--------+---+---+ +---+---+ | | | +---+---+ + +---------+ +---------+---+---+ | potassium phosphate IV 30 mmol | New Bag | 03/22/20 | 30 mmol | | | | 30 mmol, intravenous, ONCE, | | 13 11:03 | | | | | dose, Aleks[place] 03/22/13 at 2230 | | PM PDT | | | | + +---------+ +---------+---+---+ +---+---+ | | | +---+---+ + +---------+ +---------+---+---+ | potassium phosphate IV 30 mmol | New | 03/24/20 | 30 mmol | | | | 30 mmol, intravenous, ONCE, | | 13 6:32 | | | | | dose, [place] 03/24/13 at 0545 | | AM PDT | | | | + +---------+ +---------+---+---+ +---+---+ | | | +---+---+ + +---------+ +---------+---+---+ | potassium phosphate IV 30 mmol | New | 03/24/20 | 30 mmol | | | | 30 mmol, intravenous, ONCE, 1 | | 13 9:22 | | | | | dose, Tu 03/24/13 at 0930 | | AM PDT | | | | + +---------+ +---------+---+---+ +---+---+ | | | +---+---+ + +---------+ +------+---+---+ | prochlorperazine (COMPAZINE) | New Bag | 04/08/20 | 5 mg | | | | injection 2.5-5 mg 2.5-5 mg, | | 13 8:56 | | | | | intravenous, EVERY 4 HOURS | | AM PDT | | | | | NEEDED, Starting Sat03/25/13 at | | | | | | | 1237, Until 04/11/13 at 1016, | | | | | | | nausea/vomiting | | | | | | + +---------+ +------+---+---+ +---------+ +------+---+---+ | New Bag | 03/30/20 | 5 mg | | | | | 13 10:10 | | | | | | PM PDT | | | | +---------+ +------+---+---+ | New Bag | 03/30/20 | 5 mg | | | | | 13 5:10 | | | | | | PM PDT | | | | +---------+ +------+---+---+ +---+---+ | | | +---+---+ + +---------+ +------+---+---+ | prochlorperazine (COMPAZINE) | New Bag | 03/29/20 | 5 mg | | | | injection 5 mg 5 mg, | | 13 2:51 | | | | | intravenous, ONCE, 1 dose, Sun | | PM PDT | | | | | 03/29/13 at 1415 | | | | | | + +---------+ +------+---+---+ +---+---+ | | | +---+---+ + +-------+ +------+---+---+ | prochlorperazine (COMPAZINE) | Given | 04/11/20 | 5 mg | | | | tablet 5 mg 5 mg, feeding tube, | | 13 10:26 | | | | | EVERY 6 HOURS NEEDED, Starting | | AM PDT | | | | | 04/11/13 at 1016, Until Sat | | | | | | | 04/11/13 at 1635, nausea/vomiting | | | | | | + +-------+ +------+---+---+ +---+---+ | | | +---+---+ + +---------+ +---------+---+---+ | promethazine (PHENERGAN) | New Bag | 03/27/20 | 12.5 mg | | | | injection 12.5 mg 12.5 mg, | | 13 3:20 | | | | | intravenous, EVERY 8 HOURS | | AM PDT | | | | | NEEDED, Starting Sat03/25/13 at | | | | | | | 1048, Until Sat03/27/13 at 1328, | | | | | | | nausea/vomiting | | | | | | + +---------+ +---------+---+---+ +---------+ +---------+---+---+ | New Bag | 03/26/20 | 12.5 mg | | | | | 13 4:29 | | | | | | PM PDT | | | | +---------+ +---------+---+---+ | New Bag | 03/25/20 | 12.5 mg | | | | | 13 11:09 | | | | | | AM PDT | | | | +---------+ +---------+---+---+ +---+---+ | | | +---+---+ + +-------+ +---------+---+---+ | promethazine (PHENERGAN) tablet | Given | 03/25/20 | 12.5 mg | | | | 12.5-25 mg 12.5-25 mg, oral, | | 13 10:30 | | | | | EVERY 6 HOURS NEEDED, Starting | | AM PDT | | | | | 03/25/13 at 1019, Until Wed | | | | | | | 03/25/13 at 1048, nausea/vomiting | | | | | | + +-------+ +---------+---+---+ +-------+ +---------+---+---+ | Given | 03/25/20 | 12.5 mg | | | | | 13 10:29 | | | | | | AM PDT | | | | +-------+ +---------+---+---+ +---+---+ | | | +---+---+ + +-------+ +-------+---+---+ | simvastatin (ZOCOR) tablet 20 | Given | 03/26/20 | 20 mg | | | | mg 20 mg, oral, EVERY EVENING, | | 13 8:50 | | | | | First dose on Sat03/25/13 at | | PM PDT | | | | | 2100, Until Discontinued | | | | | | + +-------+ +-------+---+---+ +-------+ +-------+---+---+ | Given | 03/25/20 | 20 mg | | | | | 13 10:57 | | | | | | PM PDT | | | | +-------+ +-------+---+---+ +---+---+ | | | +---+---+ + +-------+ +-------+---+---+ | simvastatin (ZOCOR) tablet 20 | Given | 04/07/20 | 20 mg | | | | mg 20 mg, oral, EVERY EVENING, | | 13 10:10 | | | | | First dose on Sat04/02/13 at | | PM PDT | | | | | 2100, Until Discontinued | | | | | | + +-------+ +-------+---+---+ +-------+ +-------+---+---+ | Given | 04/06/20 | 20 mg | | | | | 13 9:16 | | | | | | PM PDT | | | | +-------+ +-------+---+---+ | Given | 04/05/20 | 20 mg | | | | | 13 9:43 | | | | | | PM PDT | | | | +-------+ +-------+---+---+ +---+---+ | | | +---+---+ + +-------+ +-------+---+---+ | simvastatin (ZOCOR) tablet 20 | Given | 04/10/20 | 20 mg | | | | mg 20 mg, feeding tube, EVERY | | 13 8:28 | | | | | EVENING, First dose (after last | | PM PDT | | | | | modification) on Sat04/08/13 at | | | | | | | 2100, Until Discontinued | | | | | | + +-------+ +-------+---+---+ +-------+ +-------+---+---+ | Given | 04/09/20 | 20 mg | | | | | 13 9:39 | | | | | | PM PDT | | | | +-------+ +-------+---+---+ | Given | 04/08/20 | 20 mg | | | | | 13 10:02 | | | | | | PM PDT | | | | +-------+ +-------+---+---+ +---+---+ | | | +---+---+ + +-------+ +------+---+---+ | sodium chloride (HYPER-HEVER) 7 % | Given | 03/31/20 | 4 mL | | | | nebulizer solution 4 mL 4 mL, | | 13 8:00 | | | | | inhalation, TWICE DAILY, First | | AM PDT | | | | | dose on Sat03/30/13 at 1500, | | | | | | | Until Discontinued | | | | | | + +-------+ +------+---+---+ +---+---+ | | | +---+---+ + +-------+ +------+---+---+ | sodium chloride (HYPER-HEVER) 7 % | Given | 04/07/20 | 4 mL | | | | nebulizer solution 4 mL 4 mL, | | 13 4:10 | | | | | inhalation, EVERY 6 HOURS, First | | PM PDT | | | | | dose (after last modification) on | | | | | | | 03/31/13 at 1600, Until | | | | | | | Discontinued | | | | | | + +-------+ +------+---+---+ +-------+ +------+---+---+ | Given | 04/07/20 | 4 mL | | | | | 13 4:55 | | | | | | AM PDT | | | | +-------+ +------+---+---+ | Given | 04/06/20 | 4 mL | | | | | 13 10:02 | | | | | | PM PDT | | | | +-------+ +------+---+---+ +---+---+ | | | +---+---+ + +---------+ +---------+---+---+ | sodium phosphate IV 30 mmol 30 | New Bag | 03/25/20 | 30 mmol | | | | mmol, intravenous, ONCE, 1 dose, | | 13 3:40 | | | | | 03/25/13 at 1500 | | PM PDT | | | | + +---------+ +---------+---+---+ +---+---+ | | | +---+---+ + +---------+ +---------+---+---+ | sodium phosphate IV 30 mmol 30 | New Bag | 03/26/20 | 30 mmol | | | | mmol, intravenous, ONCE, 1 dose, | | 13 10:02 | | | | | Bisi 03/26/13 at 0900 | | AM PDT | | | | + +---------+ +---------+---+---+ +---+---+ | | | +---+---+ + +---------+ +---+---+---+ | TPN with famotidine IV infusion | New Bag | 04/03/20 | | | | | (ADULT) intravenous, TPN 2100, | | 13 9:18 | | | | | Starting 03/24/13 at 2100, | | PM PDT | | | | | Until 04/04/13 at 0958 | | | | | | + +---------+ +---+---+---+ + + + + +---+ | New Bag | 04/02/20 | 45 mL/hr | 45 mL/hr | | | | 13 8:57 | | | | | | PM PDT | | | | + + + + +---+ | Rate/Dose Verify | 04/02/20 | 45 mL/hr | 45 mL/hr | | | | 13 7:30 | | | | | | AM PDT | | | | + + + + +---+ +---+---+ | | | +---+---+ + +---------+ + + +---+ | TPN with famotidine IV infusion | New Bag | 04/09/20 | 45 mL/hr | 45 mL/hr | | | (ADULT) intravenous, TPN 2099, | | 13 9:39 | | | | | Starting 04/04/13 at 2100, | | PM PDT | | | | | Until 04/10/13 at 0920 | | | | | | + +---------+ + + +---+ +---------+ +---+---+---+ | New | 04/08/20 | | | | | | 13 9:45 | | | | | | PM PDT | | | | +---------+ +---+---+---+ | New | 04/07/20 | | | | | | 13 10:10 | | | | | | PM PDT | | | | +---------+ +---+---+---+ +---+---+ | | | +---+---+ + +---------+ + +---+---+ | vancomycin (VANCOCIN) IV | New | 03/29/20 | 1,000 mg | | | | (ADD-vantage) 1,000 mg 1,000 mg, | | 13 8:59 | | | | | intravenous, EVERY 12 HOURS, | | PM PDT | | | | | First dose (after last | | | | | | | modification) on 03/29/13 at | | | | | | | 0900, Until Discontinued | | | | | | + +---------+ + +---+---+ +---------+ + +---+---+ | New | 03/29/20 | 1,000 mg | | | | | 13 9:50 | | | | | | AM PDT | | | | +---------+ + +---+---+ +---+---+ | | | +---+---+ + +---------+ + +---+---+ | vancomycin (VANCOCIN) IV 1,250 | New Bag | 03/28/20 | 1,250 mg | | | | mg 1,250 mg, intravenous, EVERY | | 13 9:07 | | | | | 24 HOURS, First dose (after last | | PM PDT | | | | | reorder) on Bisi 03/26/13 at 2000, | | | | | | | Until Discontinued | | | | | | + +---------+ + +---+---+ +---------+ + +---+---+ | New Bag | 03/27/20 | 1,250 mg | | | | | 13 8:17 | | | | | | PM PDT | | | | +---------+ + +---+---+ | New Bag | 03/26/20 | 1,250 mg | | | | | 13 8:14 | | | | | | PM PDT | | | | +---------+ + +---+---+ +---+---+ | | | +---+---+ documented in this encounter
--- OUTSIDE RECORDS SUMMARY | ~2020-03-16 | XMS | Encounter Summary ---
Demographics + + + | Address | [address] [place] [address] | | | [place] [address] | + + + | Home Phone | | + + + | Preferred Language | Unknown | + + + | Marital Status | Single | + + + | Islam Affiliation | NON | + + + | Race | White | + + + | Ethnic Group | Not or | + + + Author + + + | Author | [facility] | + + + | Organization | [facility] | + + + | Address | Unknown | + + + | Phone | Unavailable | + + + Support + + +---------+ + | Name | Relationship | Address | Phone | + + +---------+ + | Bre Amaya | ECON | Unknown | | + + +---------+ + Care Team Providers + +------+ + | Care Production Superintendent Hydro Name | Role | Phone | + +------+ + | Jeb Johnson DO | PCP | | + +------+ + Encounter Details +--------+ + + + + | Date | Type | Department | Care Team | Description | +--------+ + + + + | 03/30/ | Results | Stress | Other, Faculty | | | 2012 | Only | Echocardiography | [phone] | | | | | [address] | | | | | | Loop Mailcode: | | | | | | [id number] Outpatient | | | | | | Clinic Building | | | | | | [place], [place] | | | | | | [address] | | | | | | [phone] | | | +--------+ + + + [...] | [facility] | [address] | [place], [place] | | | CARDIOLOGY | [address] | [address] | | + + + + + documented in this encounter Visit Diagnoses Not on filedocumented in this encounter"
--- OUTSIDE RECORDS SUMMARY | ~2020-03-16 | XMS | Clinical Summary ---
Demographics + + + | Address | [address] [place] [address] | | | [place] [address] | + + + | Home Phone | | + + + | Preferred Language | Unknown | + + + | Marital Status | Single | + + + | Jain Affiliation | NON | + + + [...] Team Providers + +------+ + | Care Communication Engineer Name | Role | Phone | + +------+ + | Jeb Johnson DO | PCP | | + +------+ + Source Comments CATERINA is fully live on both [facility] Ambulatory and [facility] InPatient.[facility] Allergies + + + + + + [...] | | | + +--------+ +--------+-------+---------+--------+ | ASSISTIVE TECHNOLOGY TRAINER MEDICAID | ASSISTIVE TECHNOLOGY TRAINER | xxxxxxxx | Effect | | | [...] | | | 0 (Home) | [place] [address] | + +--------+ +--------+ + + Advance [...]
--- OUTSIDE RECORDS SUMMARY | ~2020-03-16 | XMS | Encounter Summary ---
Demographics + + + | Address | [address] [place] [address] | | | [place] [address] | + + + | Home Phone | | + + + | Preferred Language | Unknown | + + + | Marital Status | Single | + + + | Jehovah'S Witness Affiliation | NON | + + + | Race | White | + + + | Ethnic Group | Not or | + + + Author + + + | Author | [facility] | + + + | Organization | [facility] | + + + | Address | Unknown | + + + | Phone | Unavailable | + + + Support + + +---------+ + | Name | Relationship | Address | Phone | + + +---------+ + | Bre Aamya | ECON | Unknown | | + + +---------+ + Care Team Providers + +------+ + | Care Tractor Trailer Moving Van Driver Name | Role | Phone | + +------+ + | Jeb Johnson DO | PCP | | + +------+ + Encounter Details +--------+ + + + + | Date | Type | Department | Care Team | Description | +--------+ + + + + | 03/30/ | Results | Stress | Other, Faculty | | | 2012 | Only | Echocardiography | [phone] | | | | | [address] | | | | | | Loop Mailcode: | | | | | | [facility] Outpatient | | | | | | Clinic Building | | | | | | [place], [place] | | | | | | [address] | | | | | | [phone] | | | +--------+ + + + [...] DEPT OF | [address] | [place], [place] | | | CARDIOLOGY | [address] | [address] | | + + + + + documented in this encounter Visit Diagnoses Not on filedocumented in this encounter"
--- OUTSIDE RECORDS SUMMARY | ~2020-03-16 | XMS | Encounter Summary ---
Demographics + + + | Address | [address] | | | [place] [address] | + + + | Home Phone | | + + + | Preferred Language | Unknown | + + + | Marital Status | | + + + | Orthodoxy Affiliation | 1073 | + + + | Race | Unknown | + + + | Ethnic Group | Unknown | + + + Author + + + | Author | [facility] | | | and [place] | + + + | Organization | [facility] | | | [...] Team Providers + +------+ + | Care Recorder Gravity Prospecting Name | Role | Phone | + +------+ + PCP | Unavailable | + +------+ + Encounter Details +--------+ + + + + | Date | Type | Department | Care Team | Description | +--------+ + + + + | 06/20/ | Hospital | [facility] | Krys Lujan DO | Elevated troponin; | | 2010 - | Encounter | [facility] | [address] | Vomiting; Nausea; | | | | CARE FLOOR [address] | [place] [address] | Elevated troponin | | 06/25/ | | [address] | [phone] | level; Dehydration | | 2010 | | [place], [place] | |Dehydration | | | | [address] | | | | | | [phone] | | | +--------+ + + + [...] on file | | + + + documented as of this encounter [...] | | real-time scans were performed with product support representative static images | | | obtained. [...] Rad Conversion - 04/04/2019 11:16 AM PDT LIMITED ABDOMINAL ULTRASOUND 06/23/2011 | | CLINICAL INFORMATION: Abdominal pain. COMPARISON: None. TECHNIQUE: Multiple real-time | | scans were performed with product support representative static images obtained. FINDINGS: The liver [...] groin was anesthetized with 1% lidocaine. A 6-Montserratian arterial sheath | | | was placed in the right femoral artery, and a 6-Montserratian JL4 catheter | | | was advanced under fluoroscopic guidance and engaged with the ostium | | | of the left main coronary artery, and multiple projections of the | | | left coronary system were done with the use of contrast injections. | | | The catheter was then exchanged for a 6-Montserratian JR4 catheter which was | | | engaged with the ostium of the right coronary artery and multiple | | | projections of the right coronary system were obtained with the use | | | of contrast injections. The catheter was then exchanged for a | | | 6-Montserratian pigtail catheter which was advanced into the [...] Miles Conversion - 04/04/2019 11:16 AM PDT | | [...] | was anesthetized with 1% lidocaine. A 6-Montserratian arterial sheath was placed | | in the right femoral artery, and a 6-Montserratian JL4 catheter was advanced | | under fluoroscopic guidance and engaged with the ostium of the left main | | coronary artery, and multiple projections of the left coronary system were | | done with the use of contrast injections. The catheter was then exchanged | | for a 6-Montserratian JR4 catheter which was engaged with the ostium of the right | | coronary artery and multiple projections of the right coronary system were | | obtained with the use of contrast injections. The catheter was then | | exchanged for a 6-Montserratian pigtail catheter which was advanced into the [...] | 1.41 D-E Excursion: 1.96 cm E-F Phillips: 0.14 m/s EPSS: | | | 0.74 [...] TV A Idris: 0.43 m/s TV Dec Phillips: | | | 4.62 m/s2 TV Dec Time: 62.37 ms TV E Idris: 0.28 m/s TV E/A | | | Ratio: 0.66 Social Sciences Instructor: CLOVIS Authenticated by: Harpreet Riddle MD | | | Report Date/Time: 06-21-2011 16:41:13 | | + + + + + | Procedure Note | + + | Jd, Rad Conversion - 04/04/2019 11:16 AM PDT Patient Name: Trudi LAMBERT | | : 1930 Physician: Harpreet Riddle [...] mlLAESV Index (A-L): 15.79 ml/m2LAAs A2C: 11.82 [id number] A-L | | A2C: 28.49 mlLALs A2C: 4.16 cmLAAs A4C: 11.40 [id number] A-L A4C: 25.07 mlLALs | | A4C: 4.40 cmAo Diam: 2.70 cmAV Cusp: 1.57 cmLA Diam: 3.83 cmLA/Ao: 1.41D-E | | Excursion: 1.96 cmE-F Phillips: 0.14 m/sEPSS: 0.74 cmIVC diameter: 0.90 cmIVC | | collapse: 0.33 cmIVC % collapse: 61.94 %HR: 98.36 BPMAR maxP.94 mmHgAR | | meanP.71 mmHgAR Vmax: 4.27 m/Ron Vmean: 3.06 m/Ron VTI: 97.33 cmHR: | | 100.18 BPMAV maxP.87 mmHgAV meanP.43 mmHgAV Vmax: 1.21 m/Gillian Vmean: 0.89 | | m/Gillian VTI: 18.52 cmAVA Vmax: 2.26 cm2AVA (VTI): 2.23 lr0PDVE Dopp: 2.28 | | l/wbra5LXRV Dopp: 3.97 l/minHR: 96.03 BPMLVOT maxP.78 mmHgLVOT [...] 2.38 m/sTV A Idris: 0.43 m/sTV Dec Phillips: 4.62 m/s2TV | | Dec Time: 62.37 msTV E Idris: 0.28 m/sTV E/A Ratio: 0.66 Social Sciences Instructor: | | MIKAuthenticated by: Harpreet MARIEchar[facility] Date/Time: 06-21-2011 16:41:13 | | | |MEASUREMENTS [...] | |D-E Excursion: 1.96 cm | |E-F Phillips: 0.14 m/s | |EPSS: 0.74 cm | [...] A Idris: 0.43 m/s | |TV Dec Phillips: 4.62 m/s2 | |TV Dec Time: 62.37 ms | |TV E Idris: 0.28 m/s | |TV E/A Ratio: 0.66 | | | |Social Sciences Instructor: CLOVIS | |Authenticated by: Harpreet Riddle MD | |Report Date/Time: 06-21-2011 16:41:13 | + + MRSA NAAT (06/21/2011 5:53 AM PST) + + | Specimen | + + | | + + + + + | Narrative | Performed At | + + + | [facility] | EXTERNAL LAB | | Testing performed at [address];[place] [address] MRSA PCR | | | NEGATIVE Testing performed at | | | [address];[place] [address] | | + + + + +---------+ [...] + + + | MYRA LAMBERT XR ABDOMEN 1 VIEW 06/20/2011 1:50 PM HISTORY: [...]
--- OUTSIDE RECORDS SUMMARY | ~2020-03-16 | XMS | Clinical Summary ---
Demographics + + + | Address | [address] | | | [place] [address] | + + + | Home Phone | | + + + | Preferred Language | Unknown | + + + | Marital Status | | + + + | Druze Affiliation | 1073 | + + + | Race | Unknown | + + + | Ethnic Group | Unknown | + + + Author + + + | Author | [facility] | | | and [place] | + + + | Organization | [facility] | | | and [...] Team Providers + +------+ + | Care Plate Keeper Name | Role | Phone | + [...] + + + Last Filed Vital Signs Not on file Plan of Treatment + + +-------+ + | Health Maintenance | Due Date | Last | Comments | | | | Done | | + + +-------+ + | Vaccine: | | | | | Dtap/Tdap/Td (1 - | 0 | | | | Tdap) | | | | + + +-------+ + | Vaccine: Zoster (1 | | | | | of 2) | 1 | | | + + +-------+ + | Vaccine: | | | | | Pneumococcal 65+ (1 | 6 | | | | of 1 - PPSV23) | | | | + + +-------+ + | Vaccine: Influenza | | | | | (#1) | 0 | | | + + +-------+ + Results Not on filefrom Last 3 Months"
--- OUTSIDE RECORDS SUMMARY | ~2020-03-16 | XMS | Clinical Summary ---
Demographics + + + | Address | [address] [place] [address] | | | [place] [address] | + + + | Home Phone | | + + + | Preferred Language | Unknown | + + + | Marital Status | Single | + + + | Roman Catholic Affiliation | NON | + + + [...] Team Providers + +------+ + | Care Card Grinder Name | Role | Phone | + +------+ + | Jeb Johnson DO | PCP | | + +------+ + Source Comments CATERINA is fully live on both [facility] Ambulatory and [facility] InPatient.Pending Sale To [facility] Allergies + + + + + + [...] | | | + +--------+ +--------+-------+---------+--------+ | SWORD SWALLOWER MEDICAID | SWORD SWALLOWER | xxxxxxxx | Effect | | | [...] | | | 0 (Home) | [place] [address] | + +--------+ +--------+ + + Advance [...]
--- OUTSIDE RECORDS SUMMARY | ~2020-03-16 | XMS | Encounter Summary ---
Demographics + + + | Address | [address] [place] [address] | | | [place] [address] | + + + | Home Phone | | + + + | Preferred Language | Unknown | + + + | Marital Status | Single | + + + | Latter Day Affiliation | NON | + + + | Race | White | + + + | Ethnic Group | Not or | + + + Author + + + | Author | [facility] | + + + | Organization | [facility] | + + + | Address | Unknown | + + + | Phone | Unavailable | + + + Support + + +---------+ + | Name | Relationship | Address | Phone | + + +---------+ + | Bre Amaya | ECON | Unknown | | + + +---------+ + Care Team Providers + +------+ + | Care Usps Letter Carrier Name | Role | Phone | + [...] Echo | | | | | | aKty Mitchell, | [facility] [address] | | | | | TRANSTHORACI | PA-C [address] | | | | | [address] | [address] | [address] | | | | | ECHOCARDIOGR | [address] | [address] | | | | | AM, [address] | [address] | Building, [address] | | | | | | [place], [place] | floor | | | | | | [address] | [place], [place] | | | | | | Phone: | [address] | | | | | | [phone] | Phone: | | | | | | Fax: | [phone] | | | | | | [phone] | | +--------+--------+ + + + + [...] CONTRAST | [address] | [address] [facility] | | | | | | [facility] [address] [facility], | | | | | | [place], [place] | [facility] Floor | | | | | | [address] | [place], [place] | | | | | | | [address] | | | | | | | Phone: | | | | | | | [phone] | | | | | | | Fax: | | | | | | | [phone] | +--------+--------+ + + + + Diagnostic [...] | | | | IV CONTRAST | [facility] | [address] | | | | | | Rd | [facility], | | | | | | [place], [place] | [facility] Floor | | | | | | [address] | [place], [place] | | | | | | Phone: | [phone] | | | | | | [phone] | Phone: | | | | | | Fax: | [phone] | | | | | | [phone] | Fax: | | | | | | | [phone] | +--------+--------+ + + + + Reason [...] RUTH Beckford | | | | | [place], [place] | [address] | | | 04/11/ | | [address] | [place], [place] | | | 2012 | | [phone] | [address] | | | | | | [phone] | | | | | | | | | | | | Gallo Dubon MD | | | | | | [address] | | | | | | Gerda Miller [place], | | | | | | [place] [address] | | | | | | [phone] | | | | | | | [...] might be different fr om the original. [facility] DEPARTMENT OF SURGERY EMERGENCY GENERAL SURGERY Division of Trauma and Critical Care INPATIENT PROVIDER DISCHARGE SUMMARY Note Date: 04/10/2013 Admission Date: 03/22/2013 JUDIE LAMBERT, Discharge Date: 11 Apr 2013 PCP: Jeb Johnson DO Attending Physician: Gallo Dubon MD Author: JULISSA CORTES MD Hospital Course: Judie Lambert is an 83 y/o female who presented to the ED in [facility] on 03/21 with abdomin al pain with known prior history of diverticulosis. She was found to have a LLQ mass and WBC count of 17,000. CT demonstrated reji diverticular abscess. She was started on meropenem, L evaquin and flagyl, and receive 7 liters fluid resuscitation. She was also noted with UA + > 100,000 Lactose atg java developer. She decompensated requiring levophed for blood pressure thus she was transferred to [facility] for higher level of care for [...] failure with no prior his tory of VA or heart failure. Echo demonstrated EF 30-35%. She wast started on lisinopril 5mg daily, lasix drip and switched from metoprolol to coreg 12.5mg bid. Her pelvic drain was re moved on 03/31. By 04/02, her respiratory and cardiovascular improved and she was transferred to the [facility] on 04/02 in stable condition. She was [...] physician for a referral to a local telephone cleaner for treatment of n ewly-diagnosed congestive heart failure. Jeb [address] [place] [address] Discharging Provider: JULISSA CORTES MD Attending Physician: [...] might be different fr om the original. [facility] DEPARTMENT OF SURGERY EMERGENCY GENERAL SURGERY Division [...] other applicable data points. Please refer to [employer] for this information . PHYSICAL EXAM: LAST [...] Abx, [place] [phone] pager number [facility] A [address] [place] [facility] [place] [address] Christiano Darden MD - 0 04/10/2013 7:46 AM PDT [facility] DEPARTMENT OF SURGERY EMERGENCY GENERAL [...] other applicable data points. Please refer to [facility] for this information . PHYSICAL EXAM: [...] Cortes MD General Surgery Resident, PGY1 Pager [phone] [facility] [address] [facility] [address] Julissa Amato MD - 04/09/2013 7:42 AM PDT [facility] DEPARTMENT OF SURGERY EMERGENCY GENERAL SURGERY Division [...] other applicable data points. Please refer to [facility] for this information . PHYSICAL EXAM: [...] Cortes MD General Surgery Resident, PGY1 Pager [phone] [facility] A [address] [address] Julissa Amato MD - 0 04/08/2013 9:24 AM PDT [facility] DEPARTMENT OF SURGERY EMERGENCY GENERAL SURGERY Division of Trauma and Critical Care Attending Physician: Gallo Dubon MD Progress Note Note Date: 04/08/2013 Admission Date: 03/22/2013 JUDIE LAMBERT, [id number] Hospital Day #17 INTERVAL EVENTS/SUBJECTIVE Continues on [...] Cortes MD General Surgery Resident, PGY1 Pager [phone] Carolynn Driver - 013 3:28 PM PDTChaplain Note: Asked by RN to check in on pt since she is having a hard time being here for so long and so far away. She really didn't want to interact with me today, s he might be tired. She has no particular spiritual identification. Reporting Coordinator will stop in f or friendly visit later and see if she is interested. Locatorgregory Kinsey M.Div., [facility] [phone] Pager #[phone] On-call pager #[phone] Julissa Amato MD - 6:00 AM PDT [facility] DEPARTMENT OF SURGERY EMERGENCY GENERAL SURGERY Division of Trauma and Critical Care Attending Physician: Gallo Dubon MD Progress Note Note Date: 04/06/2013 Admission Date: 03/22/2013 JUDIE LAMBERT, Hospital Day #15 ID: Judie Lambert is an 83 y/o lady who present to the ED in [facility] [place] on 03/21 with abdomin al pain with known prior history of diverticulosis. She was found to have a LLQ mass and WB C count of 17,000. CT demonstrated reji diverticular abscess. She was started on meropenem , Levaquin and flagyl, and receive 7 liters fluid resuscitation. She was also noted with UA + >100,000 Lactose atg java developer. She decompensated requiring levophed for blood pressure thus she was transferred to [facility] for higher level of care for [...] failure with no prior hi story of VA or heart failure. Echo demonstrated EF 30-35%. [...] other applicable data points. Please refer to [employer] for this information . PHYSICAL EXAM: LAST [...] doesn't show stone. Its possible that stone rmoero s passed - Lipase continues to trend [...] Abx, [place] [phone] pager number [facility] [address] [place] [facility] [place] [address] Brandon Monique MD - 0 04/06/2013 9:44 AM PDT Gastroenterology Follow-Up Note Date: 04/06/2013 IMPRESSION/PLAN: Ms. Lambert is a 83 year-old woman with a history of CAD, CHF, COPD, and diverticulosis who pr esented with abdominal pain to an outside hospital and found to have a diverticular abscess with development of septic shock requiring transfer to [facility], now s/p IR-guided pelvic drain placement [...] questions. Brandon Leary MD Fellow, Gastroenterology Pager: [phone] INTERVAL HISTORY: Ms. Lambert reports feeling well [...] N P - 04/06/2013 8:51 AM PDT [facility] DEPARTMENT OF SURGERY EMERGENCY GENERAL SURGERY Division of Trauma and Critical Care Attending Physician: Gallo Dubon MD Progress Note Note Date: 04/06/2013 Admission Date: 03/22/2013 JUDIE LAMBERT, Hospital Day #15 On 03/22/13, Judie Lambert is an 83 y/o lady who present to the ED in [facility] on 03/21 with abdominal pain with known prior history of diverticulosis. She was found to have a LLQ mass and WBC count of 17,000. CT demonstrated reji diverticular abscess. She was started on namrata penem, Levaquin and flagyl, and receive 7 liters fluid resuscitation. She was also noted wit h UA + >100,000 Lactose atg java developer. She decompensated requiring levophed for blood pressure t hus she was transferred to [facility] ICU for higher level of care [...] failure with no prior his tory of VA or heart failure. Echo demonstrated EF 30-35%. [...] atelecta sis. GI was satisfied with down lawosn trend of lipase and the passing of [...] other applicable data points. Please refer to [facility] for this information . PHYSICAL EXAM: [...] Abx, [place] [phone] pager number [facility] [address] [place] [facility] [place] [address] randon Leary M D - 04/05/2013 1:42 PM PDT Gastroenterology Follow-Up Note Date: 04/05/2013 IMPRESSION/PLAN: Ms. Lambert is a 83 year-old woman with a history of CAD, CHF, COPD, and diverticulosis who pr esented with abdominal pain to an outside hospital and found to have a diverticular abscess with development of septic shock requiring transfer to [facility], now s/p IR-guided pelvic drain placement [...] Workman. Brandon Leary MD Fellow, Gastroenterology Pager: [phone] INTERVAL HISTORY: Ms. Lambert reports feeling well [...] cai MD - 04/05/2013 8:12 AM PDT [facility] DEPARTMENT OF SURGERY [...] other applicable data points. Please refer to [facility] for this information . PHYSICAL EXAM: [...] Cortes MD General Surgery Resident, PGY1 Pager [phone] [facility] A [address] [place] [address] Julissa Amato MD - 04/04/2013 11:04 AM PDT [facility] DEPARTMENT OF SURGERY EMERGENCY GENERAL [...] other applicable data points. Please refer to [employer] for this information . PHYSICAL EXAM: LAST [...] Cortes MD General Surgery Resident, PGY1 Pager [phone] [facility] [place] [place] [address] Lee Estes M D - 04/04/2013 9:54 [...] euvolemic to sli ghtly up (JVP) today. eLe Arthur MD Meredith Villareal MD - 04/03/2013 7:26 AM PDTI saw and evaluated the patient. I agree with the findings an d the plan of care as documented in the resident s note. MEREDITH STEVEN MD Matthew Bustillo MD - 04/03/2013 7:26 AM PDT [facility] DEPARTMENT OF SURGERY EMERGENCY GENERAL SURGERY Division [...] other applicable data points. Please refer to [facility] for this information . PHYSICAL EXAM: [...] ABX on Probiotics: [place] [phone] pager number [facility] [address] [place] [facility] [place] [address] Jose Tiwari MD - 04/02/2013 9:29 AM PDTI was present and rounded with the REFERRAL MANAGER today. I interviewed and exam ined the patient. I reviewed the history, as documented today. I agree with the REFERRAL MANAGER's asses sment and plan. Safe to transfer. [...] M D - 04/02/2013 5:09 AM PDT [facility] DEPARTMENT OF SURGERY EMERGENCY GENERAL SURGERY Division [...] other applicable data points. Please refer to [employer] for this information . Lab Results Component [...] to regular [place] [phone] [facility] [address] [facility] [place] [facility] Gregory Granado MD - 04/01/2013 11:20 AM PDTICU Attending: I saw and examined Judie Lambert ([id number]) with Claire Donahue PA-C on 04/01/13 and [...] documented by kirby MOTTA. Gregory Young MD Consumer Attorney Trauma, Critical Care, Acute Care Surgery Katy [...] diuretics in the morning. Jacoby An MD Ski Lift Attendant Pager [phone] Meredith Villareal MD - 04/01/2013 4:07 AM PDTI saw and evaluated the patient. I agree with the findings and the plan of care as documented in the resident s note. MEREDITH STEVEN MD atrin Yeung M D - 04/01/2013 4:07 AM PDT [facility] DEPARTMENT OF SURGERY EMERGENCY GENERAL SURGERY Division [...] other applicable data points. Please refer to [employer] for this information . Lab Results Component [...] continue ICU [place] [phone] [facility] [address] [place] [facility] [place] [address] Gavi Cortes PA-C - 04/01/2013 12:00 AM [...] Attending: I saw and examined Judie Lambert ([id number]) with Claire Donahue PA-C on 03/31/13 and [...] of time documented by Jai Young MD Consumer Attorney Trauma, Critical Care, Acute Care Surgery Meredith Villareal MD - 03/31/2013 2:27 AM PDT [facility] DEPARTMENT OF SURGERY EMERGENCY GENERAL SURGERY Division [...] other applicable data points. Please refer to [employer] for this information . Lab Results Component [...] continue ICU [place] [phone] [facility] A [address] [facility] [place] [facility] I saw [...] with questions or concerns. CLEVELAND ORTIZ PA-C [id number] uss Duarte - 03/30/2013 10:53 AM PDTTransthoracic [...] TPN, will discuss volumes and lytes with senior accountant analyst 9. Hyperglycemia controlled with insulin in TPN [...] Spears MD - 03/30/2013 2:04 AM PDT [facility] DEPARTMENT OF SURGERY EMERGENCY GENERAL SURGERY Division [...] other applicable data points. Please refer to [facility] for this information . Lab Results [...] continue ICU [place] [phone] [facility] [address] [place] [facility] [place] [address] sac Paredes MD - 03/29/2013 3:18 PM [...] LETTY FRIEND MD General Surgery, R2 Pager [phone] SICU Resident Pager [phone] I was present with the resident during the history and exam. I discussed the case with the resident and agree with the findings and plan as documented in the resident s note. ISAC PAREDES MD [facility] [id number] [place] [id number] Sharmaine Spears MD - 03/29/2013 6:26 AM [...] Cultures: No new cultures LABS: Reviewed in [facility] Dr. Dubon is the attending of record for this patient encounter. SHARMAINE HUNTER MD Surgery Resident, R2 Diagnoses: [id number] Intestinal diverticular abscess anGregory MD - 10:46 AM PDTICU Attending: I saw and examined Judie Lambert ([id number]) with the residents on 03/28/13 and agree [...] monitoring of respiratory status. Gregory Young MD Consumer Attorney Trauma, Critical Care, Acute Care Surgery amran, [...] Robert MD - 03/28/2013 3:32 AM PDT [facility] DEPARTMENT OF SURGERY EMERGENCY GENERAL SURGERY [...] other applicable data points. Please refer to [facility] for this information . PHYSICAL EXAM: [...] Cultures pending. KATRIN YEUNG MD General Surgery [address] [facility] [place] [address] [facility] [place] [facility] Sharmaine Spears MD [...] 25 mg, Oral, BID, Clemente S Aries, REFERRAL MANAGER, 25 mg at 03/26/132049 omeprazole (PRILOSEC) capsule [...] SHARMAINE HUNTER MD Surgery Resident, R2 Diagnoses: [id number] Intestinal diverticular abscess Sharmaine Spears MD - 6:36 PM PDTCalled to patient room by R1. ct scan tech noted that patient desaturated t o the [...] Dubon MD - 03/26/2013 7:18 AM PDT [facility] DEPARTMENT OF SURGERY EMERGENCY GENERAL SURGERY [...] other applicable data points. Please refer to [employer] for this information . PHYSICAL EXAM: LAST [...] ABX on Probiotics: Lactobacillus JOI ANDRE MD [facility] [address] [place] [facility] [place] [address] STAFF: I personally interviewed the patient, performed [...] denies cardiac issues but hx significant for VA and AAA. Neuro: Oriented to person and [...] acute changes noted Nathen Horne MD, EM [id number] signed by Nathen Horne MD at 03/25/2013 10:11 PM PDTK Joi santana MD - 03/25/2013 8:17 AM PDTFormatting of this note might be different f rom the original. [facility] DEPARTMENT OF SURGERY EMERGENCY GENERAL SURGERY Division [...] other applicable data points. Please refer to [employer] for this information . PHYSICAL EXAM: LAST [...] ABX on Probiotics: Lactobacillus JOI ANDRE MD [facility] [address] [place] [address] [place] [facility] [place] Dowling PA-C - 03/24/2013 [...] with questions or concerns. CLEVELAND ORTIZ PA-C [id number] Liliana Tirado MD - 03/24/2013 8:46 AM [...] expiratory wheezing, good saturations. LILIANA FERNANDEZ MD [id number] Clemente Guillen MD - 03/24/2013 8:46 AM [...] M D - 03/24/2013 7:09 AM PDT [facility] DEPARTMENT OF SURGERY Daily Progress Note PROGRESS NOTE: Attending Physician: Meredith Steven MD 03/24/2013 Subjective/Overnight Events: - agitated and delirious overnight - given ativan and haldol - off norepi and BP stable - drain output 20cc MEDICATIONS: Reviewed in [facility] VITAL SIGNS: Refer to [facility] Intake/Output Summary (Last 24 hours) at [...] rounds. Devon Dove MD Surgery, R3 Diagnoses: [id number] Intestinal diverticular abscess This assessment and plan [...] separately billabl e procedures. LILIANA FERNANDEZ MD [id number] aub, Clemente Mitchell MD - 03/23/2013 11:01 [...] -continue to assess need for surgery vs. oysterman drain placement #Agitation/delerium: understands she was disoriented [...] NSR. -trial duoneb -check trops given hx VA -20mg IV Lasix now for diuresis #Hypotension: [...] R hip replacement in 2007 with postoperative VA which was treated medically . At baseline [...] colostomy. This was discussed with Dr. Steven, [facility] staff. KHAI DASH MD documented [...] [facility] | [address] | [place], [place] | | | RUPERT POINT OF CARE | [address] | [address] | | | TESTS | | | [...] RUGGIERO | [address] | [place], [place] | | | BREANNA EMERY OF CARE | [address] | [address] | | | TESTS | | | [...] [place] | [address] | [place], [place] | | | BREANNA EMERY OF CARE | [address] | [address] | | | TESTS | | | [...] [place] | [address] | [place], [place] | | | [facility]ERT POINT OF CARE | [address] | [address] | | | TESTS | | | [...] RUGGIERO | [address] | [place], [place] | | | RUPERT POINT OF CARE | [address] | [address] | | | TESTS | | | [...] [facility] | [address] | [place] [address] | | | SERVICES, [place] | [address] [...] | | | LABORATORY | | | LEBANESE | | | SERVICES, | | | [...] ANION GAP | 7 | mmol/L | [facility] | | | | | | [...] | + + + + + | [facility] [employer] | [address] | [place] [address] | | | SERVICES, [facility] | [address] | | [...] | + + + + + | [facility] | [address] | [place] [address] | | | SERVICES, CORE | [address] | | | + + + + + MAGNESIUM, PLASMA (04/10/2013 3:40 AM PDT) + +-------+ + + + | Component | Value | Ref Range | Performed | Pathologist | | | | | At | Signature | + +-------+ + + + | MAGNESIUM,P | 2.2 | 1.8 - 2.5 mg/dL | [facility] | | | [facility] | | | [...] | + + + + + | [facility] | [address] | [place] [address] | | | SERVICES, CORE | [address] [...] RUGGIERO | [address] | [place], [place] | | | BREANNA EMERY OF [place]A | [facility] | [address] | | | TESTS | | | [...] [place] | [address] | [place], [place] | | | BREANNA EMERY OF CARE | [facility] | [address] | | | TESTS | | | [...] (H) | 60 - 99 mg/dL | [facility] - | | | GLUCOSE, | [...] [place] | [address] | [place], [place] | | | [place]UPERT POINT OF CARE | [address] | [address] | | | TESTS | | | [...] RUGGIERO | [address] | [place], [place] | | | BREANNA EMERY OF [place] | [facility] | [address] | | | TESTS | | | [...] [facility] | [address] | [place] [address] | | | SERVICES, CORE | PARK [...] | + + + + + | [facility] | [address] | [place] [address] | | | SERVICES, CORE | [address] [...] | | | LABORATORY | | | LEBANESE | | | SERVICES, | | | [...] [facility] | [address] | [place] [address] | | | SERVICES, CORE | PARK [...] | + + + + + | [facility] | [address] | [place] [address] | | | SERVICES, CORE | GERDA [...] [facility] | [address] | [place] [address] | | | SERVICES, CORE | GERDA [...] [place] | [address] | [place], [place] | | | BREANNA EMERY OF CARE | [address] | [address] | | | TESTS | | | [...] RUGGIERO | [address] | [place], [place] | | | BREANNA EMERY OF CARE | [address] | [address] | | | TESTS | | | [...] DAWNAAM | [address] | [place], [place] | | | BREANNA EMERY OF CARE | [address] | [address] | | | TESTS | | | [...] (H) | 60 - 99 mg/dL | [facility] - | | | GLUCOSE, | | [...] RUGGIERO | [address] | [place], [place] | | | BREANNA EMERY OF CARE | [facility] | [address] | | | TESTS | | | [...] + + | [facility] | [address] | [place] [address] | | | SERVICES, [place] | [address] [...] [facility] | [address] | [place] [address] | | | SERVICES, CORE | PARK [...] | | | LABORATORY | | | LEBANESE | | | SERVICES, | | | [...] the MDRD equation recommended by the | [facility] | | National Kidney Disease Education [...] | + + + + + | [facility] | [address] | [place] [address] | | | SERVICES, [facility] | [address] | | [...] | + + + + + | [facility] | [address] | [place] [address] | | | SERVICES, CORE | PARK [...] | + + + + + | [facility] | [address] | [place] [address] | | | SERVICES, CORE | [address] [...] [place] | [address] | [place], [place] | | | RUPERT POINT OF CARE | [address] | [address] | | | TESTS | | | [...] BAHMAN | [address] | [place], [place] | | | BREANNA EMERY OF CARE | [address] | [address] | | | TESTS | | | [...] (H) | 60 - 99 mg/dL | [facility] - | | | GLUCOSE, | [...] RUGGIERO | [address] | [place], [place] | | | BREANNA EMERY OF [place] | [address] | [address] | | | TESTS | | | [...] MAR[facility] | [address] | [place], [place] | | | RUPERT POINT OF CARE | [address] [address] | [address] | | | TESTS | | | [...] | [facility] | [address] | [place], [place] | | | RUPERT POINT OF CARE | [address] | [address] | | | TESTS | | | [...] | + + + + + | [facility] | [address] | [place] [address] | | | SERVICES, CORE | GERDA [...] [facility] | [address] | [place] [address] | | | SERVICES, CORE | PARK [...] | | | LABORATORY | | | LEBANESE | | | SERVICES, | | | [...] | + + + + + | [facility] | [address] | [place] [address] | | | [facility] | [address] | | | + [...] | + + + + + | [facility] | [address] | [place] [address] | | | SERVICES, CORE | [address] | | | + + + + + MAGNESIUM, PLASMA (04/07/2013 3:27 AM PDT) + +-------+ + + + | Component | Value | Ref Range | Performed | Pathologist | | | | | At | Signature | + +-------+ + + + | MAGNESIUM,P | 2.2 | 1.8 - 2.5 mg/dL | [facility] | | | LASMA | | | [...] | + + + + + | [facility] | [address] | [place] [address] | | | SERVICES, CORE | GERDA [...] RU[facility] | [address] | [place], [place] | | | BREANNA EMERY OF [place] | [address] | [address] | | | TESTS | | | [...] [facility] | [address] | [place], [place] | | | BREANNA EMERY OF [place] | [facility] | [address] | | | TESTS | | | [...] (H) | 60 - 99 mg/dL | [facility] - | | | GLUCOSE, | [...] RUGGIERO | [address] | [place], [place] | | | RUPERT POINT OF CARE | [address] | [address] | | | TESTS | | | [...] RUGGIERO | [address] | [place], [place] | | | RUPERT POINT OF CARE | [address] | [address] | | | TESTS | | | [...] [facility] | [address] | [place] [address] | | | SERVICES, CORE | [address] [...] [facility] | [address] | [place] [address] | | | SERVICES, CORE | PARK [...] | | | LABORATORY | | | LEBANESE | | | SERVICES, | | | [...] [facility] | [address] | [place] [address] | | | SERVICES, CORE | PARK [...] | + + + + + | [facility] | [address] | [place] [address] | | | SERVICES, CORE | PARK [...] | + + + + + | [facility] | [address] | [place] [address] | | | CLIFTON JARAMILLO | GERDA [...] - BAHMAN | [address] | [place] | | | BREANNA EMERY OF [place] | [facility] | [address] | | | TESTS | | | [...] RUGGIERO | [address] | [place], [place] | | | RUPERT POINT OF CARE | [address] | [address] | | | TESTS | | | [...] BAHMAN | [address] | [place] | | | BREANNA EMERY OF [place] | [address] | [address] | | | TESTS | | | [...] BAHMAN | [address] | [place] | | | BREANNA EMERY OF [facility] | [facility] | [address] | | | TESTS | | | [...] | + + + + + | [facility] | [address] | [place] [address] | | | SERVICES, CORE | GERDA [...] | | | LABORATORY | | | LEBANESE | | | SERVICES, | | | [...] [facility] | [address] | [place] [address] | | | SERVICES, CORE | PARK [...] | + + + + + | [facility] | [address] | [place] [address] | | | SERVICES, CORE | GERDA [...] [facility] | [address] | [place] [address] | | | SERVICES, CORE | GERDA [...] [facility] | [address] | [place] [address] | | | SERVICES, CORE | PARK [...] | | | LABORATORY | | | LEBANESE | | | SERVICES, | | | [...] the MDRD equation recommended by the | [facility] | | National Kidney Disease Education [...] | + + + + + | [facility] | [address] | [place] [address] | | | CLIFTON JARAMILLO | GERDA [...] RUGGIERO | [address] | [place], [place] | | | BREANNA EMERY OF [facility] | [address] | [address] | | | TESTS | | | [...] DAWNAAM | [address] | [place] | | | BREANNA EMERY OF CARE | [facility] | [address] | | | TESTS | | | [...] (H) | 60 - 99 mg/dL | [facility] - | | | GLUCOSE, | [...] BAHMAN | [address] | [place], [place] | | | RUPERT POINT OF CARE | [address] | [address] | | | TESTS | | | [...] BAHMAN | [address] | [place] | | | BREANNA EMERY OF [place] | [facility] | [address] | | | TESTS | | | [...] [facility] | [address] | [place] [address] | | | SERVICES, CORE | GERDA [...] | | | LABORATORY | | | LEBANESE | | | SERVICES, | | | [...] Interpretive Information: <60 mL/min/1.73 sq m | [facility] | | Chronic Kidney Disease [...] | + + + + + | [facility] | [address] | [place] [address] | | | [facility] | [address] | | [...] [facility] | [address] | [place] [address] | | | SERVICES, CORE | PARK [...] | + + + + + | [facility] | [address] | [place] [address] | | | SERVICES, CORE | GERDA [...] [facility] | [address] | [place] [address] | | | SERVICES, CORE | PARK [...] | | | LABORATORY | | | LEBANESE | | | SERVICES, | | | [...] | + + + + + | [facility] | [address] | [place] [address] | | | SERVICES, CORE | GERDA [...] MARQUAM | [address] | [place], [place] | | | RUPERT POINT OF CARE | [address] | [address] | | | TESTS | | | [...] RUGGIERO | [address] | [place], [place] | | | RUPERT [facility] OF [facility] | [address] | [address] | | | TESTS | | | [...] | | + +---------+ + + | [facility] DEPARTMENT OF | | | | [...] and | | | | | | [facility] | | | | [...] BAHMAN | [address] | [place], [place] | | | BREANNA EMERY OF [place] | [address] | [address] | | | TESTS | | | [...] RUGGIERO | [address] | [place] | | | BREANNA EMERY OF [place] | [address] | [address] | | | TESTS | | | [...] [facility] | [address] | [place] [address] | | | SERVICES, CORE | PARK [...] | | | LABORATORY | | | LEBANESE | | | SERVICES, | | | [...] | + + + + + | [facility] | [address] | [place] [address] | | | SERVICES, CORE | [address] | | | + + + + + LIPASE, PLASMA (04/03/2013 3:50 AM PDT) + +---------+ + + + | Component | Value | Ref Range | Performed | Pathologist | | | | | At | Signature | + +---------+ + + + | LIPASE | 816 (H) | 152 - 353 U/L | [facility] | | | (LAB) | | | [...] [facility] | [address] | [place] [address] | | | SERVICES, CORE | PARK [...] | + + + + + | [facility] | [address] | [place] [address] | | | SERVICES, CORE | GERDA [...] [facility] | [address] | [place] [address] | | | SERVICES, CORE | PARK [...] | | | LABORATORY | | | LEBANESE | | | SERVICES, | | | [...] | + + + + + | [facility] [employer] | [address] | [place] [address] | | | SERVICES, CORE | GERDA [...] DAWNAAM | [address] | [place] | | | BREANNA EMERY OF [place] | [facility] | [address] | | | TESTS | | | [...] (H) | 60 - 99 mg/dL | [facility] - | | | GLUCOSE, | [...] RUGGIERO | [address] | [place], [place] | | | RUPERT POINT OF CARE | [address] | [address] | | | TESTS | | | [...] MARQUAM | [address] | [place], [place] | | | BREANNA EMERY OF [place] | [facility] | [address] | | | TESTS | | | [...] RUGGIERO | [address] | [place], [place] | | | RUPERT POINT OF CARE | [address] | [address] | | | TESTS | | | [...] | + + + + + | [facility] | [address] | [place] [address] | | | SERVICES, CORE | PARK [...] | | | LABORATORY | | | LEBANESE | | | SERVICES, | | | [...] | + + + + + | [facility] | [address] | [place] [address] | | | SERVICES, [facility] | [address] | | [...] [facility] | [address] | [place] [address] | | | SERVICES, CORE | PARK [...] | + + + + + | [facility] | [address] | [place] [address] | | | SERVICES, CORE | GERDA [...] [facility] | [address] | [place] [address] | | | SERVICES, CORE | PARK [...] | | | LABORATORY | | | LEBANESE | | | SERVICES, | | | [...] | + + + + + | [facility] [employer] | [address] | [place] [address] | | | SERVICES, CORE | GERDA [...] MARQUAM | [address] | [place], [place] | | | RUPERT POINT OF CARE | [address] | [address] | | | TESTS | | | [...] (H) | 60 - 99 mg/dL | [facility] - | | | GLUCOSE, | [...] | [address] | [place], [place] | | | BREANNA EMERY OF [place] | [facility] | [address] | | | TESTS | | | [...] RUGGIERO | [address] | [place], [place] | | | RUPERT, POINT OF CARE | [address] | [address] | | | TESTS | | | [...] | | | LABORATORY | | | LEBANESE | | | SERVICES, | | | [...] | + + + + + | [facility] | [address] | [place] [address] | | | SERVICES, CORE | GERDA [...] [facility] | [address] | [place] [address] | | | SERVICES, CORE | PARK [...] [facility] | [address] | [place] [address] | | | SERVICES, CORE | PARK [...] | + + + + + | [facility] | [address] | [place] [address] | | | SERVICES, CORE | GERDA [...] [facility] | [address] | [place] [address] | | | SERVICES, CORE | PARK [...] | | | LABORATORY | | | LEBANESE | | | SERVICES, | | | [...] | + + + + + | [facility] | [address] | [place] [address] | | | SERVICES, CL[place] | [address] [...] [facility] | [address] | [place] [address] | | | SERVICES, CORE | PARK [...] + + | [facility] | [address] | [place] [address] | | | SERVICES, CORE | GERDA [...] | + + + + + | [facility] | [address] | [place] [address] | | | SERVICES, CORE | GERDA [...] MARQUAM | [address] | [place], [place] | | | BREANNA EMERY OF CARE | [address] | [address] | | | TESTS | | | [...] [facility] | [address] | [place] [address] | | | SERVICES, CORE | PARK [...] | | | LABORATORY | | | LEBANESE | | | SERVICES, | | | [...] | + + + + + | [facility] | [address] | [place] [address] | | | SERVICES, CORE | GERDA [...] [facility] | [address] | [place], [place] | | | RUPERT [facility] | [facility] | [address] | | | TESTS | | | [...] | + + + + + | [facility] | [address] | [place] [address] | | | CLIFTON JARAMILLO | GERDA [...] (H) | 60 - 99 mg/dL | [facility] - | | | GLUCOSE, | [...] RUGGIERO | [address] | [place], [place] | | | BREANNA EMERY OF [facility] | [address] | [address] | | | TESTS | | | | + + + + + X-RAY PORTABLE CHEST 1 VIEW (03/31/2013 10:40 AM PDT) + + + + + + | Component | Value | Ref Range | Performed | Pathologist | | | | | At | Signature | + + + + + + | X-RAY | EXAM: HI CHEST 1 VIEW | | | | [...] | | | | | | Radiologists: AML | | | | | | REMI [...] RUGGIERO | [address] | [place], [place] | | | BREANNA EMERY OF CARE | [address] | [address] | | | TESTS | | | [...] [facility] | [address] | [place] [address] | | | SERVICES, CORE | PARK [...] [facility] | [address] | [place] [address] | | | ELLA, CLIFTON | PARK [...] | + + + + + | [facility] | [address] | [place] [address] | | | SERVICES, CORE | GERDA [...] MARQUAM | [address] | [place], [place] | | | BREANNA EMERY OF CARE | [facility] | [address] | | | TESTS | | | [...] - MARQUAM | [address] | [place], [place] | | | RUPERT POINT OF CARE | [address] | [address] | | | TESTS | | | [...] | | | LABORATORY | | | LEBANESE | | | SERVICES, | | | [...] the MDRD equation recommended by the | [facility] | | National Kidney Disease Education [...] | + + + + + | [facility] | [address] | [place] [address] | | | CLIFTON JARAMILLO | GERDA [...] view image for the detailed interpretation from [employer] results. | CARDIOLOGY | + + + + + | Procedure Note | + + | Interface, Cardiology Results - 04/01/2013 12:41 PM PDT Please click on view image | | for the detailed interpretation from [employer] results. | + + + + + + + | Performing | Address | City/State/Zipcode | Phone Number | | Organization | | | | + + + + + | [facility] | [address] | [place], [place] | | | CARDIOLOGY | [address] | [address] | | + + + + + [...] | | + +---------+ + + | [facility] DEPARTMENT OF | | | | [...] | + + + + + | [facility] | [address] | [place] [address] | | | SERVICES, [place] | [address] [...] [facility] | [address] | [place] [address] | | | SERVICES, CORE | GERDA [...] | 1.013 | 1.005 - 1.030 | [facility] | | | GRAVITY | | | [...] | + + + + + | [facility] | [address] | [place] [address] | | | SERVICES, CORE | PARK [...] [facility] | [address] | [place] [address] | | | SERVICES, CORE | PARK [...] | + + + + + | [facility] | [address] | [place] [address] | | | CLIFTON JARAMILLO | [address] [...] MARQUAM | [address] | [place] | | | RUPERT POINT OF CARE | [facility] | [address] | | | TESTS | | | [...] | | | LABORATORY | | | LEBANESE | | | SERVICES, | | | [...] [facility] | [address] | [place] [address] | | | ELLA, CL[place]ON | GERDA [...] [facility] | [address] | [place] [address] | | | SERVICES, CORE | GERDA [...] DAWNAAM | [address] | [place], [place] | | | BREANNA EMERY OF CARE | [address] | [address] | | | TESTS | | | [...] | + + + + + | [facility] | [address] | [place] [address] | | | SERVICES, CORE | PARK [...] [facility] | [address] | [place], [place] | | | THERAPY | [address] | [address] | | + + + + + [...] [facility] | [address] | [place] | | | THERAPY | [address] | [address] | | + + + + + IONIZD CA WB, POC RESP (03/30/2013 1:53 AM PDT) + +-------+ + + + | Component | Value | Ref Range | Performed | Pathologist | | | | | At | Signature | + +-------+ + + + | [facility]RO | 1.17 | 1.14 - 1.32 | [...] [facility] | [address] | [place], [place] | | | THERAPY | [address] | [address] | | + + + + + [...] [facility] | [address] | [place], [place] | | | THERAPY | [address] | [address] | | + + + + + [...] [facility] | [address] | [place], [place] | | | THERAPY | [address] | [address] | | + + + + + [...] [facility] | [address] | [place], [place] | | | THERAPY | [address] | [address] | | + + + + + X-RAY PORTABLE CHEST 1 VIEW (03/30/2013 1:51 AM PDT) + + + + + + | Component | Value | Ref Range | Performed | Pathologist | | | | | At | Signature | + + + + + + | X-RAY | EXAM: HI CHEST 1 VIEW | | | | [...] | + + + + + | [facility] | [address] | [place] [address] | | | SERVICES, CORE | GERDA [...] [facility] | [address] | [place] [address] | | | SERVICES, CORE | PARK [...] [facility] | [address] | [place] [address] | | | SERVICES, CORE | GERDA [...] | + + + + + | [facility] | [address] | [place] [address] | | | SERVICES, CORE | GERDA [...] [facility] | [address] | [place] [address] | | | SERVICES, CORE | PARK [...] | | | LABORATORY | | | LEBANESE | | | SERVICES, | | | [...] | + + + + + | [facility] | [address] | [place] [address] | | | SERVICES, [place] | GERDA [...] MARQUAM | [address] | [place], [place] | | | BREANNA EMERY OF CARE | [address] | [address] | | | TESTS | | | | + + + + + X-RAY PORTABLE CHEST 1 VIEW (03/29/2013 9:59 PM PDT) + + + + + + | Component | Value | Ref Range | Performed | Pathologist | | | | | At | Signature | + + + + + + | X-RAY | EXAM: HI CHEST 1 VIEW | | | | [...] + + + | [facility] | [address] | [place], [place] | | | BREANNA EMERY OF [facility] | [address] | [address] | | | TESTS | | | [...] BAHMAN | [address] | [place] | | | BREANNA EMERY OF [place] | [facility] | [address] | | | TESTS | | | [...] (H) | 60 - 99 mg/dL | [facility] - | | | GLUCOSE, | [...] RUGGIERO | [address] | [place], [place] | | | RUPERT POINT OF CARE | [address] | [address] | | | TESTS | | | [...] | | | | | AJ WOMACK ([id number]) on | | | | | | 03/29/2013 2:22:51 PM | | | | + + + + + + + + | Specimen | + + | | + + + + + | Narrative | Performed At | + + + | Please click | [facility]PT [facility] | | on view image for the detailed interpretation from [employer] results. | CARDIOLOGY | + + + + + | Procedure Note | + + | Interface, Cardiology Results - 03/29/2013 2:23 PM PDT Please click on view image | | for the detailed interpretation from [employer] results. | + + + + + + + | Performing | Address | City/State/Zipcode | Phone Number | | Organization | | | | + + + + + | [facility] | [address] | [place], [place] | | | CARDIOLOGY | [address] | [address] | | + + + + + [...] | + + + + + | [facility] | [address] | [place] [address] | | | SERVICES, CORE | GERDA [...] [facility] | [address] | [place] [address] | | | SERVICES, CORE | PARK [...] [facility] | [address] | [place] [address] | | | SERVICES, CORE | PARK [...] | | | LABORATORY | | | LEBANESE | | | SERVICES, | | | [...] the MDRD equation recommended by the | [facility] | | National Kidney Disease Education [...] | + + + + + | [facility] | [address] | [place] [address] | | | CLIFTON JARAMILLO | GERDA [...] - DAWNAAM | [address] | [place], [place] | | | BREANNA EMERY OF CARE | [address] | [address] | | | TESTS | | | [...] | + + + + + | [facility] | [address] | [place] [address] | | | SERVICES, CORE | GERDA [...] MARQU[facility] | [address] | [place], [place] | | | BREANNA EMERY OF CARE | [address] | [address] | | | TESTS | | | [...] | + + + + + | [facility] | [address] | [place] [address] | | | CLIFTON JARAMILLO | [address] [...] (H) | 60 - 99 mg/dL | [facility] - | | | GLUCOSE, | [...] + + + | [facility] | [address] | [place], [place] | | | BREANNA EMERY OF [facility] | [address] | [address] | | | TESTS | | | | + + + + + X-RAY ABD LTD FEEDING TUBE EVAL PORTABLE (03/28/2013 12:41 PM PDT) + + + + + + | Component | Value | Ref Range | Performed | Pathologist | | | | | At | Signature | + + + + + + | X-RAY ABD | EXAM: HI ABD LTD | | | | | [...] + + + | X-RAY | STUDY: HI CHEST 1 VIEW | | | | [...] MAR[facility] | [address] | [place], [place] | | | BREANNA EMERY OF CARE | [address] | [address] | | | TESTS | | | [...] [facility] | [address] | [place] [address] | | | SERVICES, CORE | PARK [...] | + + + + + | [facility] | [address] | [place] [address] | | | SERVICES, CORE | PARK [...] [facility] | [address] | [place] [address] | | | ELLA, CL[place]ON | GERDA [...] | | | LABORATORY | | | LEBANESE | | | SERVICES, | | | [...] | + + + + + | [facility] | [address] | [place] [address] | | | SERVICES, CORE | GERDA [...] [facility] | [address] | [place], [place] | | | RUPERT POINT OF CARE | [address] | [address] | | | TESTS | | | [...] [facility] | [address] | [place], [place] | | | RUPERT POINT OF CARE | [address] | [address] | | | TESTS | | | [...] | + + + + + | [facility] | [address] | [place] [address] | | | SERVICES, [place] | GERDA [...] | | + +---------+ + + | [facility] DEPARTMENT OF | | | | [...] | | | | | | TECHNIQUE: Call Center Supervisor imaging | | | | | | [...] | | | | | AJ WOMACK ([id number]) on | | | | | | 03/29/2013 2:10:24 PM | | | | + + + + + + + + | Specimen | + + | | + + + + + | Narrative | Performed At | + + + | Please click | [facility] | | on view image for the detailed interpretation from [employer] results. | CARDIOLOGY | + + + + + | Procedure Note | + + | Interface, Cardiology Results - 03/29/2013 2:10 PM PDT Please click on view image | | for the detailed interpretation from [employer] results. | + + + + + + + | Performing | Address | City/State/Zipcode | Phone Number | | Organization | | | | + + + + + | [facility] | [address] | [place], [place] | | | CARDIOLOGY | [address] | [address] | | + + + + + [...] | + + + + + | [facility] | [address] | [place] [address] | | | CLIFTON JARAMILLO | GERDA [...] (H) | 60 - 99 mg/dL | [facility] - | | | GLUCOSE, | [...] [facility] | [address] | [place], [place] | | | RUPERT POINT OF CARE | [address] | [address] | | | TESTS | | | [...] [facility] | [address] | [place], [place] | | | LIN[place]TE EMERY | [facility] | [address] | | | TESTS | | | [...] [facility] | [address] | [place] [address] | | | SERVICES, CORE | PARK [...] | + + + + + | [facility] | [address] | [place] [address] | | | SERVICES, CORE | GERDA [...] | + + + + + | [facility] | [address] | [place] [address] | | | SERVICES, CORE | PARK [...] | | | LABORATORY | | | LEBANESE | | | SERVICES, | | | [...] | + + + + + | [facility] | [address] | [place] [address] | | | SERVICES, CORE | GERDA [...] | + + + + + | [facility] | [address] | [place] [address] | | | SERVICES, CLIFT[place] | PARK [...] [facility] | [address] | [place], [place] | | | RUPERT [facility] | [address] | [address] | | | TESTS | | | [...] | + + + + + | [facility] | [address] | [place] [address] | | | SERVICES, CORE | [address] | | | + + + + + X-RAY PORTABLE CHEST 1 VIEW (03/26/2013 10:36 PM PDT) + + + + + + | Component | Value | Ref Range | Performed | Pathologist | | | | | At | Signature | + + + + + + | X-RAY | STUDY: HI CHEST 1 VIEW | | | | [...] | + + + + + | [facility] | [address] | [place] [address] | | | SERVICES, CORE | GERDA [...] view image for the detailed interpretation from [employer] results. | CARDIOLOGY | + + + + + | Procedure Note | + + | Interface, Cardiology Results - 03/27/2013 11:16 PM PDT Please click on view image | | for the detailed interpretation from [facility] results. | + + + + + + + | Performing | Address | City/State/Zipcode | Phone Number | | Organization | | | | + + + + + | [facility] | [address] | [place], [place] | | | CARDIOLOGY | [address] | [address] | | + + + + + [...] view image for the detailed interpretation from [facility] results. | CARDIOLOGY | + + + + + | Procedure Note | + + | Interface, Cardiology Results - 03/27/2013 11:16 PM PDT Please click on view image | | for the detailed interpretation from [employer] results. | + + + + + + + | Performing | Address | City/State/Zipcode | Phone Number | | Organization | | | | + + + + + | [facility] | [address] | [place], [place] | | | CARDIOLOGY | [facility] | [address] | | + + + + + CAPILLARY BLOOD GLUCOSE (NO CHG), POC (03/26/2013 7:32 PM PDT) + +---------+ + + + | Component | Value | Ref Range | Performed | Pathologist | | | | | At | Signature | + +---------+ + + + | BLOOD | 177 (H) | 60 - 99 mg/dL | [facility] - | | | GLUCOSE, | [...] RUGGIERO | [address] | [place], [place] | | | RUPERT POINT OF CARE | [address] | [address] | | | TESTS | | | [...] | + + + + + | [facility] | [address] | [place] [address] | | | SERVICES, [place] | GERDA [...] [facility] | [address] | [place] [address] | | | SERVICES, CORE | PARK [...] [facility] | [address] | [place] [address] | | | SERVICES, CORE | PARK [...] | | | LABORATORY | | | LEBANESE | | | SERVICES, | | | [...] the MDRD equation recommended by the | [facility] | | National Kidney Disease Education [...] | + + + + + | [facility] | [address] | [place] [address] | | | ELLA, [place] | [address] | | | + + + + + X-RAY PORTABLE CHEST 1 VIEW (03/26/2013 6:10 PM PDT) + + + + + + | Component | Value | Ref Range | Performed | Pathologist | | | | | At | Signature | + + + + + + | X-RAY | STUDY:HI CHEST 1 VIEW | | | | [...] RUGGIERO | [address] | [place], [place] | | | BREANNA EMERY OF [facility] | [address] | [address] | | | TESTS | | | [...] | + + + + + | [facility] | [address] | [place] [address] | | | SERVICES, CORE | GERDA [...] [facility] | [address] | [place], [place] | | | BREANNA EMERY OF CARE | [address] | [address] | | | TESTS | | | [...] [facility] | [address] | [place], [place] | | | RUPERT POINT OF CARE | [address] | [address] | | | TESTS | | | [...] | + + + + + | [facility] | [address] | [place] [address] | | | SERVICES, CORE | PARK [...] [facility] | [address] | [place] [address] | | | SERVICES, [place] | GERDA [...] [facility] | [address] | [place] [address] | | | SERVICES, CORE | PARK [...] | | | LABORATORY | | | LEBANESE | | | SERVICES, | | | [...] the MDRD equation recommended by the | [facility] | | National Kidney Disease Education [...] | + + + + + | [facility] | [address] | [place] [address] | | | [place] JARAMILLO | GERDA [...] | + + + + + | [facility] | [address] | [place] [address] | | | SERVICES, CORE | GERDA [...] (H) | 60 - 99 mg/dL | [facility] - | | | GLUCOSE, | [...] RUGGIERO | [address] | [place], [place] | | | BREANNA EMERY OF CARE | [address] | [address] | | | TESTS | | | [...] view image for the detailed interpretation from [employer] results. | CARDIOLOGY | + + + + + | Procedure Note | + + | Interface, Cardiology Results - 03/27/2013 8:43 PM PDT Please click on view image | | for the detailed interpretation from [employer] results. | + + + + + + + | Performing | Address | City/State/Zipcode | Phone Number | | Organization | | | | + + + + + | [facility] | [address] | [place], [place] | | | CARDIOLOGY | [address] | [address] | | + + + + + X-RAY PORTABLE CHEST 1 VIEW (03/25/2013 8:43 PM PDT) + + + + + + | Component | Value | Ref Range | Performed | Pathologist | | | | | At | Signature | + + + + + + | X-RAY | STUDY: HI CHEST 1 VIEW | | | | [...] | + + + + + | [facility] | [address] | [place] [address] | | | SERVICES, CORE | GERDA [...] LABORATORY | [address] | [place] [address] | | | SERVICES, CORE | PARK [...] [facility] | [address] | [place] [address] | | | SERVICES, CORE | PARK [...] (H) | 60 - 99 mg/dL | [facility] | | | PLASMA | | | [...] | | | LABORATORY | | | LEBANESE | | | SERVICES, | | | [...] the MDRD equation recommended by the | [facility] | | National Kidney Disease Education [...] | + + + + + | [facility] | [address] | [place] [address] | | | SERVICES, CORE | PARK [...] | + + + + + | [facility] | [address] | [place] [address] | | | SERVICES, CORE | GERDA [...] (H) | 60 - 99 mg/dL | [facility] - | | | GLUCOSE, | | | [facility] | | | POC | | | BREANNA EEMRY | | | | | | OF [...] RUGGIERO | [address] | [place], [place] | | | BREANNA EMERY OF [facility] | [address] | [address] | | | TESTS | | | [...] | | | Final CULTURE | | [place] | | | | RESULT:No growth (<1000 [...] + | [facility] - | [address] | [place] [address] | | | [place] | | | | + + + [...] [facility] | [address] | [place] [address] | | | SERVICES, CORE | PARK [...] | + + + + + | [facility] | [address] | [place] [address] | | | SERVICES, CORE | PARK [...] + | [facility] | [address] | [place] [address] | | | SERVICES, [place] | GERDA [...] + + | [facility] | [address] [facility] [address] | [place], [place] | | | RUPERT POINT OF CARE | [facility] | [address] | | | TESTS | | | [...] (H) | 60 - 99 mg/dL | [facility] - | | | GLUCOSE, | [...] RUGGIERO | [address] | [place], [place] | | | BREANNA EMERY OF [place] | [address] | [address] | | | TESTS | | | [...] | | | | | IVÁN DILLON ([id number]) | | | | | | on 03/25/2013 10:27:32 PM | | | | + + + + + + + + | Specimen | + + | | + + + + + | Narrative | Performed At | + + + | Please click | [facility] | | on view image for the detailed interpretation from [employer] results. | CARDIOLOGY | + + + + + | Procedure Note | + + | Interface, Cardiology Results - 03/25/2013 10:27 PM PDT Please click on view image | | for the detailed interpretation from [employer] results. | + + + + + + + | Performing | Address | City/State/Zipcode | Phone Number | | Organization | | | | + + + + + | [facility] | [address] | [place], [place] | | | CARDIOLOGY | [address] | [address] | | + + + + + [...] RU[facility] | [address] | [place], [place] | | | RUPERT POINT OF CARE | [address] | [address] | | | TESTS | | | [...] [facility] | [address] | [place] [address] | | | [place] JARAMILLO | GERDA [...] | + + + + + | [facility] | [address] | [place] [address] | | | SERVICES, CORE | PARK [...] | + + + + + | [facility] | [address] | [place] [address] | | | SERVICES, CORE | GERDA [...] | | | LABORATORY | | | LEBANESE | | | SERVICES, | | | [...] | + + + + + | [facility] | [address] | [place] [address] | | | SERVICES, CORE | GERDA [...] (H) | 60 - 99 mg/dL | [facility] - | | | GLUCOSE, | [...] + + + | [facility] | [address] | [place], [place] | | | RUPERT POINT OF CARE | [address] | [address] | | | TESTS | | | [...] [facility] | [address] | [place], [place] | | | RUPERT POINT OF CARE | [address] | [address] | | | TESTS | | | [...] - [facility] | [address] | [place], [place] | | | RUPERT POINT OF CARE | [address] | [address] | | | TESTS | | | [...] RU[facility] | [address] | [place], [place] | | | BREANNA EMERY OF [place] | [address] | [address] | | | TESTS | | | [...] [facility] | [address] | [place], [place] | | | BREANNA EMERY OF CARE | [address] | [address] | | | TESTS | | | [...] [facility] | [address] | [place], [place] | | | BREANNA EMERY OF [facility] | [address] | [address] | | | TESTS | | | [...] | + + + + + | [facility] | [address] | [place] [address] | | | SERVICES, CORE | GERDA [...] [facility] | [address] | [place] [address] | | | SERVICES, [place] | GERDA [...] | + + + + + | [facility] | [address] | [place] [address] | | | SERVICES, CORE | PARK [...] | + + + + + | [facility] | [address] | [place] [address] | | | SERVICES, CORE | GERDA [...] | | | LABORATORY | | | LEBANESE | | | SERVICES, | | | [...] LABORATORY | [address] | [place] [address] | | | SERVICES, CORE | PARK [...] | + + + + + | [facility] | [address] | [place] [address] | | | SERVICES, CORE | GERDA [...] [facility] | [address] | [place] [address] | | | SERVICES, CORE | PARK [...] | | | Final CULTURE | | [place] | | | | RESULT:No growth (<1000 [...] + | [facility] - | [address] | [place] [address] | | | [place] | | | | + + + [...] [facility] | [address] | [place] [address] | | | SERVICES, CORE | PARK [...] | + + + + + | [facility] | [address] | [place] [address] | | | SERVICES, CORE | GERDA [...] view image for the detailed interpretation from [employer] results. | CARDIOLOGY | + + + + + | Procedure Note | + + | Interface, Cardiology Results - 03/24/2013 11:18 PM PDT Please click on view image | | for the detailed interpretation from [employer] results. | + + + + + + + | Performing | Address | City/State/Zipcode | Phone Number | | Organization | | | | + + + + + | [facility] | [address] | [place], [place] | | | CARDIOLOGY | [address] | [address] | | + + + + + X-RAY PORTABLE CHEST 1 VIEW (03/23/2013 9:56 AM PDT) + + + + + + | Component | Value | Ref Range | Performed | Pathologist | | | | | At | Signature | + + + + + + | X-RAY | STUDY: HI CHEST 1 VIEW | | | | [...] | + + + + + | [facility] | [address] | [place] [address] | | | ELLA, [place] | GERDA [...] | | + +---------+ + + | [facility] DEPARTMENT OF | | | | [...] - [facility] | [address] | [place], [place] | | | RUPERT POINT OF CARE | [address] | [address] | | | TESTS | | | [...] | + + + + + | [facility] | [address] | [place] [address] | | | SERVICES, CORE | GERDA [...] [facility] | [address] | [place] [address] | | | SERVICES, CORE | PARK [...] LABORATORY | [address] | [place] [address] | | | SERVICES, CORE | PARK [...] | | | LABORATORY | | | LEBANESE | | | SERVICES, | | | [...] the MDRD equation recommended by the | [facility] | | National Kidney Disease Education [...] | + + + + + | [facility] | [address] | [place] [address] | | | SERVICES, [facility] | [address] | | | + [...] | | | | placement of 10 Mosotho | | | | | | multipurpose [...] | | | | | | 10 Mosotho multipurpose | | | | | | [...] | | | | | | 12 Mosotho drainage | | | | | | catheter was positioned | | | | | | in the collection. | | | | | | Impression: 1. Fluid | | | | | | collection in the left | | | | | | pelvis consistent with | | | | | | an abscess 2. 10 Mosotho | | | | | | multipurpose [...] | | | Final GRAM | | [place] | | | | STAIN:Many | | [...] | + + + + + | [facility] - | [address] | [place] [address] | | | [place] | | | [...] | + + + + + | [facility] | [address] | [place] [address] | | | SERVICES, | [address] [...] [facility] | [address] | [place] [address] | | | SERVICES, | [address] [...] | + + + + + | [facility] | [address] | [place] [address] | | | SERVICES, CORE | PARK [...] [facility] | [address] | [place] [address] | | | SERVICES, [place] | GERDA [...] [facility] | [address] | [place] [address] | | | SERVICES, [place] | GERDA [...] | + + + + + | [facility] | [address] | [place] [address] | | | ELLA, [place] | PARK [...] | + + + + + | [facility] | [address] | [place] [address] | | | SERVICES, CORE | GERDA [...] | | | LABORATORY | | | LEBANESE | | | SERVICES, | | | [...] | + + + + + | [facility] | [address] | [place] [address] | | | SERVICES, [place] | GERDA [...] | | | | | dose on [facility] 04/02/13 at 1500, | | | [...] 6:21 | | | | | dose, [facility] 03/26/13 at 1815 | | PM PDT | | | | + +---------+ +-------+---+---+ +---+---+ | | | +---+---+ + +---------+ +-------+---+---+ | furosemide (LASIX) injection 20 | New Bag | 03/25/20 | 20 mg | | | | mg 20 mg, intravenous, ONCE, 9:06 | | | | | dose, [facility] 03/25/13 at 2115 | | PM PDT | | | | + +---------+ +-------+---+---+ +---+---+ | | | +---+---+ + +---------+ +-------+---+---+ | furosemide (LASIX) injection 20 | New Bag | 03/26/20 | 20 mg | | | | mg 20 mg, intravenous, ONCE, 10:41 | | | | | dose, [facility] 03/26/13 at 2300 | | PM PDT | | | | + +---------+ +-------+---+---+ +---+---+ | | | +---+---+ + +---------+ +-------+---+---+ | furosemide (LASIX) injection 20 | New Bag | 03/30/20 | 20 mg | | | | mg 20 mg, intravenous, ONCE, 2:40 | | | | | dose, [facility] 03/30/13 at 0315 | | AM PDT | | | | + +---------+ +-------+---+---+ +---+---+ | | | +---+---+ + +---------+ +-------+---+---+ | furosemide (LASIX) injection 20 | New Bag | 03/30/20 | 20 mg | | | | mg 20 mg, intravenous, ONCE, 9:48 | | | | | dose, [facility] 03/30/13 at 0945 | | [...] | | | | | NEEDED, Starting [facility] 03/22/13 at | | | | | | | 1736, Until [facility] 04/02/13 at 0757, | | | [...] AM PDT | | | | | [facility] 03/26/13 at 0000, Until | | [...] | | | | | modification) on [facility] 03/26/13 at | | | | [...] PDT | | | | | Until [facility] 03/22/13 at 2245 | | | | | | + +---------+ +-------+-------+---+ +---+---+ | | | +---+---+ + + + +-------+-------+---+ | lactated ringers IV 125 mL/hr, | Rate/Dos | 03/22/20 | 125 | 125 | | | intravenous, CONTINUOUS, | e Change | 13 11:03 | mL/hr | mL/hr | | | Starting [facility] 03/22/13 at 2300, | | PM PDT | | | | | Until [facility] 03/23/13 at 0924 | | [...] | | | DAILY, First dose on [facility] 03/26/13 | | | | | [...] | | | | last modification) on [facility] 03/29/13 | | | | | | [...] | | | | | modification) on [facility] 04/09/13 at | | | | [...] | | | | First dose on [facility] 04/09/13 at | | AM PDT [...] 10:32 | | | | | dose, [facility] 03/25/13 at 1000 | | AM [...]
[2020-03-16] MEDS ORDERED: REMERON30 MG PO (22:35)
[2020-03-16] MEDS ORDERED: CREON DR 12,001 EACH PO (22:36)
[2020-03-16] MEDS ORDERED: LOPERAMIDE2 MG PO (22:37)
[2020-03-16] MEDS ORDERED: NORCO 5-325 TA1 EACH PO (22:37)
[2020-03-17] MEDS ORDERED: BACTRIM DS TAB1 EACH PO (00:34)
--- NOTE | 2020-03-17 07:32 | EKG ---
[facility] [address] [place], [place] [address] Signed Sinus bradycardia Otherwise normal ECG No previous ECGs available Confirmed by WILLIAM PEREIRA MD ([id number]) on 03/17/2020 7:31:56 AM Electronically Signed By: WILLIAM PEREIRA MD 03/17/20 0732 PATIENT NAME: MYRA LOCKHART Electrocardiogram DATE OF : 32 PHYSICIAN: WILLIAM PEREIRA MD REPORT #: [id number] REPORT IS CONFIDENTIAL AND NOT TO BE RELEASED WITHOUT AUTHORIZATION
== END 2020-03-17 01:46 | disposition home or self-care (01) ==
LOC: ED 22:03
PROC: 0T9B70Z Drainage of Bladder with Drainage Device, Via Natural or Artificial Opening (ICD-10-PCS; principal; 2020-03-17)
DX: R55 Syncope and collapse (principal); I10 Essential (primary) hypertension; Z87.891 Personal history of nicotine dependence; Z88.1 Allergy status to other antibiotic agents; Z88.8 Allergy status to other drugs, medicaments and biological substances; Z79.899 Other long term (current) drug therapy
CPT/HCPCS: 51702; 71045; 80053; 81001; 84484; 85025; 93005; 93010; 99285-25; G0480; J0696; J2405; J7030